=== PATIENT | male | born 1935 | race Caucasian/White ===

== ENCOUNTER 2017-02-11 11:46 | Inpatient (IN) | payer MEDICARE, OTHER ==
[~2017-02-11] VITALS: Ht 175.3 cm; Wt 86.2 kg
[2017-02-11] VITALS (11 sets, daily range): BP systolic 121–147; BP diastolic 76–106
[~2017-02-11 11:46] MED LIST: ASP81CT PO; ATOR40TA70 PO; DIGO250T96 PO; DOXY-182 PO; METO-272 PO; MPR22T TP; NITR0.3T6 SL; OMEG-9 PO; RIVA20TA2 PO
[2017-02-11] MEDS ORDERED: NS IV 1000 ML 1,000 ML IV SCH (12:00)
--- NOTE | 2017-02-11 12:01 | ED EENT ---
History of Present Illness General Chief Complaint: Oral/Throat Problems Stated Complaint: SORE THROAT,COUGH Source: patient Exam Limitations: no limitations History of Present Illness Time seen by provider: 11:59 Initial Comments To ER with reports of sore throat since 02/07. He's also had painful swallowing. Denies fevers or chills. States that he's been essentially unable to swallow due to the pain so has been without adequate food or fluid intake since Friday. He has a lot of mucus in his throat as well that he states is difficult to clear. Denies cough. He was sent here from Dr. Dr. Ramon's office. Reported he was formerly on Eliquis but discontinued this because it gave him nosebleeds Timing/Duration: gradual Severity: moderate Location: throat Associated Symptoms: denies symptoms Allergies and Home Medications Allergies Coded Allergies: No Known Drug Allergies (Verified Allergy, Mild, 03/01/08) Home Medications Aspirin 81 Mg Chew, 81 MG PO DAILY, (Reported) Atorvastatin Calcium 40 Mg Tablet, 40 MG PO DAILY, (Reported) Nitroglycerin 0.3 Mg Tab.subl, 0.4 MG SL PRN, (Reported) [place]-3/Dha/Epa/Fish Oil 1 Each Capsule., 1 EACH PO BID, (Reported) Review of Systems Constitutional: see HPI Eyes: No Symptoms Reported Ears: No Symptoms Reported Nose: no symptoms reported Mouth: no symptoms reported Throat: see HPI, pain Respiratory: no symptoms reported Cardiovascular: no symptoms reported Musculoskeletal: no symptoms reported Skin: no symptoms reported Neurological: No Symptoms Reported Hematologic/Lymphatic: No Symptoms Reported Immunological/Allergic: no symptoms reported Past Oxkgqla-Uzsrvq-Cojoqd Hx Patient Social History Recent Foreign Travel: No Contact w/Someone Who Travel: No Surgeries HX Surgeries: Yes Respiratory Hx Respiratory Disorders: No Cardiovascular Hx Cardiac Disorders: Yes (stent) Cardiac Disorders: High Cholesterol Neurological Hx Neurological Disorders: No Genitourinary Hx Genitourinary Disorders: No Gastrointestinal Hx Gastrointestinal Disorders: No Musculoskeletal Hx Musculoskeletal Disorders: No Endocrine Hx Endocrine Disorders: No Cancer Hx Cancer: No Physical Exam Vital Signs Vital Sign - Last 12Hours 02/11/17 11:50 Temp 98.8 Pulse 131 Resp 18 B/P (MAP) 179/120 Pulse Ox 95 O2 Delivery Room Air General Appearance: WD/WN, no apparent distress Eyes: bilateral eye EOMI, bilateral eye PERRL, bilateral eye normal inspection Ears: bilateral ear TM normal, bilateral ear auricle normal, bilateral ear canal normal Mouth/Throat: normal mouth inspection, other (erythema and swelling of the right peritonsillar region. Erythema of the uvula) Neck: non-tender, full range of motion, No lymphadenopathy (R), No lymphadenopathy (L) Cardiovascular: tachycardia (with a regular appearing rhythm however he does have a history of atrial flutter. He denies chest pain or shortness of breath) Respiratory: no respiratory distress, no accessory muscle use Gastrointestinal: normal bowel sounds, non tender, soft Neurologic/Psychiatric: normal mood/affect, oriented x 3 Skin: normal color, warm/dry Progress/Results/Core Measures Results/Orders Lab Results Laboratory Tests Test 02/11/17 11:55 02/11/17 12:42 Range/Units White Blood Count 14.4 H 4.3-11.0 10^3/uL Red Blood Count 5.59 4.35-5.85 10^6/uL Hemoglobin 16.5 13.3-17.7 G/DL Hematocrit 51 40-54 % Mean Corpuscular Volume 91 80-99 FL Mean Corpuscular Hemoglobin 30 25-34 PG Mean Corpuscular Hemoglobin Concent 32 32-36 G/DL Red Cell Distribution Width 14.8 H 10.0-14.5 % Platelet Count 178 130-400 10^3/uL Mean Platelet Volume 10.8 H 7.4-10.4 FL Neutrophils (%) (Auto) 82 H 42-75 % Lymphocytes (%) (Auto) 10 L 12-44 % Monocytes (%) (Auto) 8 0-12 % Eosinophils (%) (Auto) 0 0-10 % Basophils (%) (Auto) 0 0-10 % Neutrophils # (Auto) 11.7 H 1.8-7.8 X 10^3 Lymphocytes # (Auto) 1.5 1.0-4.0 X 10^3 Monocytes # (Auto) 1.1 H 0.0-1.0 X 10^3 Eosinophils # (Auto) 0.0 0.0-0.3 10^3/uL Basophils # (Auto) 0.0 0.0-0.1 10^3/uL Neutrophils % (Manual) 84 % Lymphocytes % (Manual) 11 % Monocytes % (Manual) 4 % Basophils % (Manual) 1 % Blood Morphology Comment NORMAL Sodium Level 145 135-145 MMOL/L Potassium Level 3.9 3.6-5.0 MMOL/L Chloride Level 108 H 98-107 MMOL/L Carbon Dioxide Level 24 21-32 MMOL/L Anion Gap 13 5-14 MMOL/L Blood Urea Nitrogen 27 H 7-18 MG/DL Creatinine 1.21 0.60-1.30 MG/DL Estimat Glomerular Filtration Rate 58 BUN/Creatinine Ratio 22 Glucose Level 119 H 70-105 MG/DL Calcium Level 9.9 8.5-10.1 MG/DL Total Bilirubin 1.2 H 0.1-1.0 MG/DL Aspartate Amino Transf (AST/SGOT) 49 H 5-34 U/L Alanine Aminotransferase (ALT/SGPT) 62 H 0-55 U/L Alkaline Phosphatase 95 40-136 U/L Troponin I < 0.30 <0.30 NG/ML Total Protein 7.8 6.4-8.2 G/DL Albumin 4.5 3.2-4.5 G/DL Lactic Acid Level 1.62 0.50-2.00 MMOL/L My Orders Orders - SHANTEL MCCLURE APRN Cbc With Automated Diff (02/11/17 11:56) Comprehensive Metabolic Panel (02/11/17 11:56) Troponin I (02/11/17 11:56) Chest 1 View, Ap/Pa Only (02/11/17 11:56) Saline Lock/Iv-Start (02/11/17 11:56) Ns Iv 1000 Ml (Sodium Chloride 0.9%) (02/11/17 12:00) Ekg Tracing (02/11/17 11:56) Continuous Ekg Monitoring (02/11/17 11:56) Ct Neck (Soft Tissue) Wo (02/11/17 12:01) Manual Differential (02/11/17 11:55) Blood Culture (02/11/17 12:06) Lactic Acid Analyzer (02/11/17 12:06) Clindamycin Injection (Cleocin Injection (02/11/17 12:15) Metoprolol Tartrate Injection (Lopressor (02/11/17 12:30) Dexamethasone Pf Injection (Decadron Pf (02/11/17 12:45) Ns (Ivpb) (Sodium Chloride 0.9% Ivpb Bag (02/11/17 12:28) Diltiazem Injection (Cardizem Injection) (02/11/17 13:00) Sodium Chloride (Ad... W/Diltiazem Drip (02/11/17 13:00) Tick Panel With Lyme Eia (02/11/17 13:11) Medications Given in ED Current Medications Medications Dose Ordered Sig/Ivanna Route Start Time Stop Time Status Last Admin Dose Admin Clindamycin Phosphate 900 mg ONCE ONCE IV 02/11/17 12:15 02/11/17 12:16 DC 02/11/17 12:45 900 MG Dexamethasone Sodium Phosphate 10 mg ONCE ONCE IV 02/11/17 12:45 02/11/17 12:46 DC 02/11/17 12:39 10 MG Diltiazem HCl 10 mg ONCE ONCE IVP 02/11/17 13:00 02/11/17 13:05 DC 02/11/17 13:02 10 MG Metoprolol Tartrate 5 mg ONCE ONCE IV 02/11/17 12:30 02/11/17 12:31 DC 02/11/17 12:43 5 MG Sodium Chloride 50 ml @ STK-MED ONCE .ROUTE 02/11/17 12:28 02/11/17 12:33 DC 02/11/17 12:46 100 MLS/HR Vital Signs/I&O Vital Sign - Last 12Hours 02/11/17 02/11/17 11:50 13:05 Temp 98.8 98.8 Pulse 131 121 Resp 18 18 B/P (MAP) 179/120 171/120 Pulse Ox 95 94 O2 Delivery Room Air Diagnostic Imaging Diagonstic Imaging: Xray Plain Films/CT/US/NM/MRI: chest Comments NAME: SUSAN AKINS [facility] REC#: [id number] PT STATUS: REG ER : 1935 PHYSICIAN: SHANTEL MCCLURE APRN ADMIT DATE: 02/11/17/ER Draft Date of Exam:02/11/17 CHEST 1 VIEW, AP/PA ONLY INDICATION: Sore throat, difficulty swallowing. EXAMINATION: Frontal chest obtained at 1207 hrs pm, and compared to 08/09/13. Heart is borderline in size. Lungs are clear. There is no pneumothorax or pleural fluid. IMPRESSION: Borderline heart size with no acute process in the chest. Dictated on workstation # [id number] Dict: 02/11/17 1214 Trans: 02/11/17 1215 [facility] [id number] Interpreted by: LING VARMA MD Electronically signed by: NAME: SUSAN AKINS [facility] REC#: [id number] PT STATUS: REG ER : 1935 PHYSICIAN: SHANTEL MCCLURE APRN ADMIT DATE: 02/11/17/ER Draft Date of Exam:02/11/17 CT NECK (SOFT TISSUE) WO PROCEDURE: CT neck soft tissue without contrast. TECHNIQUE: Multiple contiguous axial images were obtained through the neck without the use of intravenous contrast. INDICATION: Trouble eating. Sore throat. FINDINGS: There is a soft tissue swelling seen at the right peritonsillar region measuring approximately 2.5 x 1.8 CM x 3.2 CM craniocaudally centered at the oropharynx level. There is a slight heterogeneity in its density with no definitive fluid density seen suggestive of a phlegmon. No definitive abscess at this time. The evaluation however is somewhat limited without intravenous contrast. The rest of the airway and the vocal cords appear symmetric. Borderline sized level II right cervical lymph nodes measuring 8 mm in short axis is probably reactive. No significant lymphadenopathy is seen otherwise. The thyroid gland appears unremarkable. The submandibular and the parotid glands appear unremarkable. The visualized portions of the paranasal sinuses are generally clear except for mild mucosal thickening in the inferior aspect of the maxillary sinuses. The lung apices appear clear. The osseous structures demonstrate degenerative changes. IMPRESSION: Soft tissue swelling in the right tonsillar region suggestive of underlying infection. No definite abscess. Dictated on workstation # [id number] Dict: 02/11/17 1231 Trans: 02/11/17 1254 [facility] [id number] Interpreted by: KATELYN LUGO MD Electronically signed by: Departure Communication Time/Spoke to Admitting Phy: 13:[address] Ramon agrees to admit Time/Spoke to Consulting Physi: 13:16 Communication/Consulting Notified Selene Sweet, nurse practitioner with Dr. Smith. They will consult. Also notified Dr. Lynne. We will use Lovenox 80 mg subcutaneous every 12 hours and continue the Cardizem drip at 5 mg per hour as long as heart rate and blood pressure continue to support this. Currently heart rate 58, blood pressure 134/82. Progress Notes CT scan of neck ordered without IV contrast due to renal insufficiency. 1315-blood pressure was 170/120 heart rate 130 regular but was likely atrial flutter. He is given 5 mg of IV Lopressor without improvement in heart rate or blood pressure. He was then given 10 mg Cardizem IV which reduced his heart rate to 60 atrial fibrillation and the pressure 134/85. We will continue the drip at 5 mg per hour per Dr. Coto's wishes as well as Lovenox 80 mg subcutaneous every 12 hours. Impression Impression: Primary Impression: right peritonsillar abscess Additional Impression: Atrial fibrillation with rapid ventricular response Disposition: ADMITTED INPATIENT Condition: Stable Decision to Admit Reason: Admit from ER (General) Decision to Admit/Date: February 11, 2017 Time/Decision to Admit Time: 12:30 Departure-Patient Inst. Referrals: KHUSHBU RAMON DO (PCP/Family) Primary Care Physician SHANTEL MCCLURE APRN February 11, 2017 12:01
[2017-02-11 12:03] LABS: BASOPHILS % (AUTO) 0 % (0-10); EOSINOPHILS % (AUTO) 0 % (0-10); LYMPHOCYTES # (AUTO) 1.5 X 10^3 (1.0-4.0); LYMPHOCYTES % (AUTO) 10 % (12-44); MEAN CORPUSCULAR HEMOGLOBIN 30 PG (25-34); MEAN CORPUSCULAR HGB CONC 32 G/DL (32-36); MEAN CORPUSCULAR VOLUME 91 FL (80-99); MEAN PLATELET VOLUME 10.8 FL (7.4-10.4); MONOCYTES # (AUTO) 1.1 X 10^3 (0.0-1.0); MONOCYTES % (AUTO) 8 % (0-12); NEUTROPHILS # (AUTO) 11.7 X 10^3 (1.8-7.8); NEUTROPHILS % (AUTO) 82 % (42-75); PLATELET COUNT 178 10^3/uL (130-400); RED BLOOD COUNT 5.59 10^6/uL (4.35-5.85); RED CELL DISTRIBUTION WIDTH 14.8 % (10.0-14.5); WHITE BLOOD COUNT 14.4 10^3/uL (4.3-11.0)
[2017-02-11] MEDS ORDERED: CLINDAMYCIN 900 MG/6ML (CLEOCIN) VIAL IV ONE (12:15)
--- NOTE | 2017-02-11 12:16 | Diagnostic Imaging Report ---
INDICATION: Sore throat, difficulty swallowing. EXAMINATION: Frontal chest obtained at 1207 hrs pm, and compared to 08/09/13. Heart is borderline in size. Lungs are clear. There is no pneumothorax or pleural fluid. IMPRESSION: Borderline heart size with no acute process in the chest. Dictated by: Dictated on workstation # [id number]
[2017-02-11 12:22] LABS: ALANINE AMINOTRANSFERASE 62 U/L (0-55); ALBUMIN 4.5 G/DL (3.2-4.5); ANION GAP 13 MMOL/L (5-14); ASPARTATE AMINO TRANSFERASE 49 U/L (5-34); BILIRUBIN,TOTAL 1.2 MG/DL (0.1-1.0); BLOOD UREA NITROGEN 27 MG/DL (7-18); BUN/CREATININE RATIO 22; CALCIUM 9.9 MG/DL (8.5-10.1); CARBON DIOXIDE 24 MMOL/L (21-32); CHLORIDE 108 MMOL/L (98-107); CREATININE SERUM 1.21 MG/DL (0.60-1.30); GFR ESTIMATED 58; GLUCOSE 119 MG/DL (70-105); POTASSIUM 3.9 MMOL/L (3.6-5.0); SODIUM 145 MMOL/L (135-145); TOTAL PROTEIN 7.8 G/DL (6.4-8.2)
[2017-02-11 12:28] LABS: TROPONIN I < 0.30 NG/ML (<0.30)
[2017-02-11] MEDS ORDERED: NS (IVPB) 50 ML ONE (12:28)
[2017-02-11] MEDS ORDERED: meTOprolol 5 MG/5 ML (LOPRESSOR) VIAL IV ONE (12:30)
[2017-02-11 12:31] LABS: BASOPHILS % (MANUAL) 1 %; LYMPHOCYTES % (MANUAL) 11 %; NEUTROPHILS % (MANUAL) 84 %
[2017-02-11] MEDS ORDERED: DEXAMETHASONE PF 10 MG/ML (DECADRON) VIAL IV ONE (12:45)
--- NOTE | 2017-02-11 12:54 | Diagnostic Imaging Report ---
PROCEDURE: CT neck soft tissue without contrast. TECHNIQUE: Multiple contiguous axial images were obtained through the neck without the use of intravenous contrast. INDICATION: Trouble eating. Sore throat. FINDINGS: There is a soft tissue swelling seen at the right peritonsillar region measuring approximately 2.5 x 1.8 CM x 3.2 CM craniocaudally centered at the oropharynx level. There is a slight heterogeneity in its density with no definitive fluid density seen suggestive of a phlegmon. No definitive abscess at this time. The evaluation however is somewhat limited without intravenous contrast. The rest of the airway and the vocal cords appear symmetric. Borderline sized level II right cervical lymph nodes measuring 8 mm in short axis is probably reactive. No significant lymphadenopathy is seen otherwise. The thyroid gland appears unremarkable. The submandibular and the parotid glands appear unremarkable. The visualized portions of the paranasal sinuses are generally clear except for mild mucosal thickening in the inferior aspect of the maxillary sinuses. The lung apices appear clear. The osseous structures demonstrate degenerative changes. IMPRESSION: Soft tissue swelling in the right tonsillar region suggestive of underlying infection. No definite abscess. Dictated by: Dictated on workstation # [id number]
[2017-02-11] MEDS ORDERED: DILTIAZEM DRIP 100 MG in SODIUM CHLORIDE (ADD-VANTAGE) 100 ML IV SCH (13:00)
[2017-02-11] MEDS ORDERED: DILTIAZEM 25 MG/5 ML INJ (CARDIZEM) VIAL IVP ONE (13:00)
[2017-02-11] MEDS ORDERED: ENOXAPARIN 80 MG/0.8 ML (LOVENOX) SYR ONE (13:17)
[2017-02-11] MEDS ORDERED: ENOXAPARIN 80 MG/0.8 ML (LOVENOX) SYR SC ONE (13:30)
--- NOTE | 2017-02-11 14:32 | Consultation-Cardiology ---
HPI-Cardiology Cardiology Consultation: Date of Consultation 02/11/17 Date of Admission 02/11/17 Attending Physician Barney Chu DO Admitting Physician Barney Chu DO Consulting Physician RG OLIVEIRA MD, FACP, FACC, FSCAI, CCDS HPI: Chief Complaint: Reason for consultation: A Fib with RVR 81 yo man with increasing soreness of throat progressing to the point of inability to swallow referred to the ER from Dr Chu office and admitted for treatment of peritonsillar abscess. We have been asked to see him for atrial fib with RVR. He is known to have chronic perm a fib. He has and continues to refuse OAC. Has agreed only to daily aspirin, despite a full understanding that the best protection against thromboembolic stroke would be with an OAC. He denies cp or palp or syncope or ankle swelling or any significant shortness of breath Notes malaise and diminished stamina for several day. Doesn't know if has had fevers Review of Systems-Cardiology Review of Systems Constitutional: As described under HPI Eyes: No vision change Ears/Nose/Throat: As described under HPI Respiratory: As described under HPI Cardiovascular: As described under HPI Gastrointestinal: No constipation, No diarrhea, No nausea, No vomiting Genitourinary: No dysuria, No urine frequency changes Musculoskeletal: No back pain, No joint pain Skin: No rash, No ulcerations Psychiatric/Neurological: No focal weakness, No seizure, No syncope Hematologic: No bleeding abnormalities UOM-Cpxizs-Tdwsvb Hx Patient Social History Alcohol Use: Denies Use Recreational Drug Use: No Smoking Status: Never a Smoker 2nd Hand Smoke Exposure: No Recent Foreign Travel: No Recent Infectious Disease Expo: No Hospitalization with Isolation: Denies Immunizations Up To Date Tetanus Booster (TDap): Less than 5yrs Past Medical History PMH As described under Assessment. Family Medical History Family Medical History: He does not report fam h/o early CAD or SCD Allergies and Home Medications Allergies Coded Allergies: No Known Drug Allergies (Verified Allergy, Mild, 03/01/08) Home Medications Aspirin 81 Mg Chew, 81 MG PO DAILY, (Reported) Atorvastatin Calcium 40 Mg Tablet, 40 MG PO DAILY, (Reported) Nitroglycerin 0.3 Mg Tab.subl, 0.4 MG SL PRN, (Reported) [place]-3/Dha/Epa/Fish Oil 1 Each Capsule., 1 EACH PO BID, (Reported) Physical Exam-Cardiology Physical Exam Vital Signs/I&O Vital Sign - Last 12Hours 02/11/17 02/11/17 02/11/17 02/11/17 11:50 13:05 13:28 13:39 Temp 98.8 98.8 98.8 98.8 Pulse 131 121 121 Resp 18 18 18 B/P (MAP) 179/120 171/120 Pulse Ox 95 94 94 O2 Delivery Room Air Capillary Refill : Less Than 3 Seconds Constitutional: AAO x 3, well-developed, well-nourished HEENT: PERRL, pharyngeal erythema, EOMI, hearing is well preserved, No xanthelasmas are seen Neck: carotid pulses are 2 + bilaterally, with good upstrokes Respiratory: No accessory muscle use, lungs clear to percussion, lungs clear to auscultation Cardiovascular: irregularly irregular, S1 and S2, systolic murmur (faint MAJOR at card base) Gastrointestinal: No tender, soft, No guarding, No rebound, audible bowel sounds Extremities: No clubbing, No cyanosis, No significant edema Neurologic/Psychiatric: oriented x 3, grossly intact, power is 5/5 both on sides Skin: No rash on exposed areas, No ulcerations on exposed areas Data Review Labs Laboratory Tests 02/11/17 11:55: White Blood Count 14.4H, Red Blood Count 5.59, Hemoglobin 16.5, Hematocrit 51, Mean Corpuscular Volume 91, Mean Corpuscular Hemoglobin 30, Mean Corpuscular Hemoglobin Concent 32, Red Cell Distribution Width 14.8H, Platelet Count 178, Mean Platelet Volume 10.8H, Neutrophils (%) (Auto) 82H, Lymphocytes (%) (Auto) 10L, Monocytes (%) (Auto) 8, Eosinophils (%) (Auto) 0, Basophils (%) (Auto) 0, Neutrophils # (Auto) 11.7H, Lymphocytes # (Auto) 1.5, Monocytes # (Auto) 1.1H, Eosinophils # (Auto) 0.0, Basophils # (Auto) 0.0, Neutrophils % (Manual) 84, Lymphocytes % (Manual) 11, Monocytes % (Manual) 4, Basophils % (Manual) 1, Blood Morphology Comment NORMAL, Sodium Level 145, Potassium Level 3.9, Chloride Level 108H, Carbon Dioxide Level 24, Anion Gap 13, Blood Urea Nitrogen 27H, Creatinine 1.21, Estimat Glomerular Filtration Rate 58, BUN/Creatinine Ratio 22, Glucose Level 119H, Calcium Level 9.9, Total Bilirubin 1.2H, Aspartate Amino Transf (AST/SGOT) 49H, Alanine Aminotransferase (ALT/SGPT) 62H, Alkaline Phosphatase 95, Troponin I < 0.30, Total Protein 7.8, Albumin 4.5 02/11/17 12:42: Lactic Acid Level 1.62 02/11/17 13:13: Laboratory Tests 02/11/17 11:55 A/P-Cardiology Assessment/Admission Diagnosis Atrial fibrillation/flutter, chronic permanent Coronary artery disease consisting of moderately severe disease in the terminal portion of the left anterior descending artery (not amenable to intervention because of small caliber), 80% proximal stenosis of a small caliber ramus to which successful balloon angioplasty was carried out in August 2012. He also has moderate proximal left circumflex artery disease and moderately severe disease in a subbranch of the second obtuse marginal (too small for intervention ). He also has moderate diffuse disease of the right coronary including 50% in stent restenosis. Echocardiogram from January 2014 showed mild concentric left ventricular hypertrophy , LVEF 60%, mild mitral and tricuspid regurg, mild aortic valve sclerosis without aortic stenosis, PASP 25 mmHg Hyperlipidemia History of intermittent noncompliance of medications He refuses any OAC. States will take only ASA for stroke prophylaxis, despite a full understanding that ASA does not cover him fully against thromboembolic events from his ch atrial fibrillation Umbilical hernia Suspected ANANT. He has refused eval Discussion and Recomendations * iv dilt, as needed, for vent rate control, until able to take meds by mouth * sc enoxaparin for stroke prophylaxis until able to take meds by mouth * I spoke with him and his and discussed CV issues * Card risk for noncard surgery is estimated to be low to intermediate. It would be reasonable to proceed if surgery considered necessary * Monitor labs RG OLIVEIRA MD FACP [facility] CCDS February 11, 2017 14:32
[2017-02-11] MEDS ORDERED: ACETAMINOPHEN 325 MG TABLET/CAPLET (TYLENOL) PO PRN (15:00)
[2017-02-11] MEDS: DILTIAZEM DRIP 100 MG/NS 100 ML IV SCH ×2 (16:07)
[2017-02-11] MEDS: NS IV 1000 ML 1,000 ML IV SCH (16:30)
[2017-02-11] MEDS ORDERED: OMEG-160 PO (16:36)
[2017-02-11] MEDS ORDERED: ASPI-808 PO (16:36)
[2017-02-11] MEDS ORDERED: METO-272 PO (16:36)
[2017-02-11] MEDS ORDERED: ATOR40TA70 PO (16:36)
--- NOTE | 2017-02-11 17:36 | Progress Note-Standard ---
Standard Progress Note HPI/CC on Admission Right Sided Peritonsillar Abscess Progress Notes/Assess & Plan Date Seen 02/11/17 Assess & Plan/Chief Complaint Patient was admitted to ICU for ASV and RVR and is under the care of Dr. Lynne and Dr. Chu. Also a right sided peritonsillar abscess. A Ct was completed which revelled a soft tissue mass but no definite abscess. Patient was started on Clindamycin IV and was given a one time dose of Decadron. Patient currently states that he "feels much better" and the he can no eat and drink. He is planning on ordering food in the next couple of minutes. Physical Exam. Patient was up- walking around food. Right tonsillar pillar enlarged and saggy. No uvula deviation noted. Assessment- Right tonsillar hypertrophy Plan- Continue IV clindamycin. Start Decadron 10mg Q12 x 2 doses then DC. Will continue to watch area. Above plan was discussed with Dr. Smith. Labs Laboratory Tests 02/11/17 11:55 Short Stay Final Diagnosis tonsillar hypertrophy SARAH NATARAJAN INTAKE RN February 11, 2017 17:35
--- NOTE | 2017-02-11 18:41 | History & Physicial ---
History of Present Illness History of Present Illness Reason for visit/HPI patient came to the office today complaining of a sore throat and unable to swallow. Patient stated not eating for 5 days. This time I saw patient lost 16 pounds today. Patient had hypertension office Patient's heart rate is 130s Patient bit by a tick 2 weeks ago above his umbilical hernia Surgeries heart catheter with stents. Kidney stones Date of Admission February 11, 2017 at 12:45 I consulted on this patient on 02/11/17 18:36 Attending Physician Barney Ramon DO Admitting Physician Barney Ramon DO Consult Allergies and Home Medications Allergies Coded Allergies: No Known Drug Allergies (Verified , 03/01/08) Home Medications Aspirin 325 Mg Tablet, 325 MG PO DAILY, (Reported) Atorvastatin Calcium 40 Mg Tablet, 40 MG PO HS, (Reported) Metoprolol Succinate 50 Mg Tab.er.24h, 50 MG PO HS, (Reported) [place]-3/Dha/Epa/Fish Oil 1 Each Capsule, 1,000 MG PO HS, (Reported) Past Ydfydox-Kewwys-Qqkies Hx Patient Social History Marrital Status: Employed/Student: employed Alcohol Use: Occasionally Uses Recreational Drug Use: No Smoking Status: Never a Smoker 2nd Hand Smoke Exposure: No Physical Abuse Screen: No Sexual Abuse: No Recent Foreign Travel: No Contact w/other who traveled: No Recent Hopitalizations: No Recent Infectious Disease Expo: No Immunizations Up To Date Tetanus Booster (TDap): Less than 5yrs Seasonal Allergies Seasonal Allergies: No Surgeries HX Surgeries: Yes Surgeries: Cardiac Respiratory Hx Respiratory Disorders: No Cardiovascular Hx Cardiovascular Disorders: Yes (stent) Cardiac Disorders: Atrial Fibrillation, High Cholesterol Neurological Hx Neurological Disorders: No Genitourinary Hx Genitourinary Disorders: No Genitourinary Disorders: Kidney Stones Gastrointestinal Hx Gastrointestinal Disorders: No Musculoskeletal Hx Musculoskeletal Disorders: No Endocrine Hx Endocrine Disorders: No Cancer Hx Cancer: No Family Medical History Family Hx: Completed stroke 19 FATHER G8 BROTHER FH: cancer G8 BROTHER G8 SISTER Constitutional: weight loss, other (sore throat) EENTM: hearing loss, throat pain Respiratory: no symptoms reported Gastrointestinal: loss of appetite, other (sore throat unable to swallow) Genitourinary: no symptoms reported Physical Exam Vital Signs Vital Sign - Last 12Hours 02/11/17 11:50 Temp 98.8 Pulse 131 Resp 18 B/P (MAP) 179/120 Pulse Ox 95 O2 Delivery Room Air Capillary Refill : Less Than 3 Seconds General Appearance: No Apparent Distress, WD/WN Eyes: Bilateral Eye Normal Inspection HEENT: Tonsillar Enlargement, Other (abscess tonsils right) Neck: Full Range of Motion, Normal Inspection Respiratory: Chest Non Tender, Lungs Clear, Normal Breath Sounds, No Accessory Muscle Use, No Respiratory Distress Cardiovascular: Irregularly Irregular, Other (A. fib/flutter RVR) Gastrointestinal: Non Tender, Soft, Other (billfold hernia) Assessment/Plan Assessment and Plan Davion tonsillar abscess. A. fib/flutter. CAD. Hyperlipidemia. Umbilical hernia. Tick bite 2 weeks ago Problems: Clinical Quality Measures DVT/VTE Risk/Contraindication: Risk Factor Score Per Nursin RFS Level Per Nursing on Admit: 2=Moderate BARNEY RAMON DO February 11, 2017 18:41
[2017-02-11] MEDS ORDERED: CATHETER FLUSH 10 ML SYR IV PRN (19:15)
[2017-02-11] MEDS: DOXYCYCLINE 100 MG (VIBRAMYCIN) TABLET PO SCH (19:49)
[2017-02-11] MEDS ORDERED: meTOprolol 5 MG/5 ML (LOPRESSOR) VIAL ONE (21:42)
[2017-02-11] MEDS: CLINDAMYCIN 900 MG/NS 50 ML IVPB IV SCH ×2 (21:52)
[2017-02-12] VITALS (12 sets, daily range): BP systolic 128–155; BP diastolic 85–111
[2017-02-12] MEDS ORDERED: DEXAMETHASONE 4 MG/ML SDV (DECADRON) IV SCH (00:30)
[2017-02-12] MEDS ORDERED: ENOXAPARIN 80 MG/0.8 ML (LOVENOX) SYR SC SCH (01:00)
[2017-02-12 04:19] LABS: BASOPHILS % (AUTO) 0 % (0-10); EOSINOPHILS % (AUTO) 0 % (0-10); LYMPHOCYTES # (AUTO) 1.1 X 10^3 (1.0-4.0); LYMPHOCYTES % (AUTO) 10 % (12-44); MEAN CORPUSCULAR HEMOGLOBIN 30 PG (25-34); MEAN CORPUSCULAR HGB CONC 33 G/DL (32-36); MEAN CORPUSCULAR VOLUME 91 FL (80-99); MEAN PLATELET VOLUME 11.2 FL (7.4-10.4); MONOCYTES # (AUTO) 0.4 X 10^3 (0.0-1.0); MONOCYTES % (AUTO) 3 % (0-12); NEUTROPHILS # (AUTO) 9.6 X 10^3 (1.8-7.8); NEUTROPHILS % (AUTO) 87 % (42-75); PLATELET COUNT 153 10^3/uL (130-400); RED BLOOD COUNT 5.06 10^6/uL (4.35-5.85); RED CELL DISTRIBUTION WIDTH 14.6 % (10.0-14.5); WHITE BLOOD COUNT 11.1 10^3/uL (4.3-11.0)
[2017-02-12 04:45] LABS: ALANINE AMINOTRANSFERASE 51 U/L (0-55); ALBUMIN 3.6 G/DL (3.2-4.5); ANION GAP 11 MMOL/L (5-14); ASPARTATE AMINO TRANSFERASE 40 U/L (5-34); BILIRUBIN,TOTAL 0.6 MG/DL (0.1-1.0); BLOOD UREA NITROGEN 25 MG/DL (7-18); BUN/CREATININE RATIO 28; CARBON DIOXIDE 21 MMOL/L (21-32); CHLORIDE 110 MMOL/L (98-107); CREATININE SERUM 0.89 MG/DL (0.60-1.30); GFR ESTIMATED > 60; GLUCOSE 132 MG/DL (70-105); SODIUM 142 MMOL/L (135-145); TOTAL PROTEIN 6.3 G/DL (6.4-8.2)
[2017-02-12 05:15] LABS: MAGNESIUM 2.1 MG/DL (1.8-2.4)
[2017-02-12] MEDS: CLINDAMYCIN 900 MG/NS 50 ML IVPB IV SCH ×2 (05:20)
[2017-02-12] MEDS: NS IV 1000 ML 1,000 ML IV SCH ×2 (05:21→11:20)
[2017-02-12] MEDS ORDERED: POTASSIUM CL 10MEQ/50ML IVPB 50 ML IV SCH (06:00)
[2017-02-12] MEDS ORDERED: MAGNESIUM 1 GM/100 ML IVPB 100 ML IV SCH (06:00)
[2017-02-12] MEDS ORDERED: KCL 20 MEQ TAB (K-DUR) PO SCH (06:00)
--- NOTE | 2017-02-12 06:24 | Progress Note-Standard ---
Standard Progress Note Progress Notes/Assess & Plan Progress/Assessment & Plan ENT-Luis patietn asymptomatic this am much less swollen/ no tirsmus-voice normal no airway problems nothing to drain at this time would send home on 10 days of cleocin with RTc in 2 weeks prescription left in chart for the cleocin please call if we need to do anything else while hospitalized-thanks GINETTE TOUSSAINT MD February 12, 2017 6:24 am
[2017-02-12] MEDS: DOXYCYCLINE 100 MG (VIBRAMYCIN) TABLET PO SCH (06:52)
--- NOTE | 2017-02-12 07:39 | Progress Note (SOAP) ---
Subjective Subjective/Events-last exam sore throat better. Inability to eat resolved. Apical rate not under control yet. Patient still has hypertension. Liver tests improving . Patient feeling better. Patient eating Objective Exam Vital Signs Date Time Temp Pulse Resp B/P (MAP) Pulse Ox O2 Delivery O2 Flow Rate FiO2 02/12/17 06:03 115 17 155/90 95 02/12/17 05:00 98 16 148/93 99 02/12/17 04:00 70 16 153/103 97 02/12/17 03:00 64 16 143/99 97 02/12/17 02:00 64 02/12/17 02:00 68 22 139/85 97 02/12/17 01:00 59 15 136/85 96 02/12/17 00:55 95 02/12/17 00:45 125 02/12/17 00:00 97.5 02/12/17 00:00 95 15 128/98 96 02/11/17 23:00 87 17 121/76 97 02/11/17 23:00 75 02/11/17 22:30 90 02/11/17 22:00 71 10 129/97 97 02/11/17 22:00 82 02/11/17 21:50 125 02/11/17 21:00 126 20 136/106 97 02/11/17 20:00 97.3 14 95 02/11/17 20:00 82 26 144/104 99 02/11/17 19:45 76 02/11/17 19:22 124 02/11/17 19:00 124 18 130/95 97 02/11/17 19:00 97.3 02/11/17 18:00 124 13 144/104 99 02/11/17 17:00 110 20 136/98 97 02/11/17 16:00 82 14 139/86 95 02/11/17 15:50 97.8 02/11/17 15:00 79 21 134/85 97 02/11/17 14:45 65 23 147/76 96 02/11/17 13:45 98.0 60 17 137/82 97 02/11/17 13:39 98.8 121 18 94 02/11/17 13:28 98.8 02/11/17 13:05 98.8 121 18 171/120 94 02/11/17 11:50 98.8 131 18 179/120 95 Room Air I & O 02/12/17 07:00 Intake Total 4052 ml Output Total 600 ml Balance 3452 ml Capillary Refill : Less Than 3 Seconds General Appearance: No Apparent Distress, WD/WN HEENT: Other (nose and ears okay throat better) Respiratory: Chest Non Tender, Lungs Clear, Normal Breath Sounds, No Accessory Muscle Use, No Respiratory Distress Cardiovascular: Irregularly Irregular Gastrointestinal: non tender, soft Results Lab Laboratory Tests 02/11/17 11:55 02/12/17 04:07 Laboratory Tests 02/11/17 11:55: White Blood Count 14.4H, Red Blood Count 5.59, Hemoglobin 16.5, Hematocrit 51, Mean Corpuscular Volume 91, Mean Corpuscular Hemoglobin 30, Mean Corpuscular Hemoglobin Concent 32, Red Cell Distribution Width 14.8H, Platelet Count 178, Mean Platelet Volume 10.8H, Neutrophils (%) (Auto) 82H, Lymphocytes (%) (Auto) 10L, Monocytes (%) (Auto) 8, Eosinophils (%) (Auto) 0, Basophils (%) (Auto) 0, Neutrophils # (Auto) 11.7H, Lymphocytes # (Auto) 1.5, Monocytes # (Auto) 1.1H, Eosinophils # (Auto) 0.0, Basophils # (Auto) 0.0, Neutrophils % (Manual) 84, Lymphocytes % (Manual) 11, Monocytes % (Manual) 4, Basophils % (Manual) 1, Blood Morphology Comment NORMAL, Sodium Level 145, Potassium Level 3.9, Chloride Level 108H, Carbon Dioxide Level 24, Anion Gap 13, Blood Urea Nitrogen 27H, Creatinine 1.21, Estimat Glomerular Filtration Rate 58, BUN/Creatinine Ratio 22, Glucose Level 119H, Calcium Level 9.9, Total Bilirubin 1.2H, Aspartate Amino Transf (AST/SGOT) 49H, Alanine Aminotransferase (ALT/SGPT) 62H, Alkaline Phosphatase 95, Troponin I < 0.30, Total Protein 7.8, Albumin 4.5 02/11/17 12:42: Lactic Acid Level 1.62 02/11/17 13:13: 02/12/17 04:07: White Blood Count 11.1H, Red Blood Count 5.06, Hemoglobin 15.1, Hematocrit 46, Mean Corpuscular Volume 91, Mean Corpuscular Hemoglobin 30, Mean Corpuscular Hemoglobin Concent 33, Red Cell Distribution Width 14.6H, Platelet Count 153, Mean Platelet Volume 11.2H, Neutrophils (%) (Auto) 87H, Lymphocytes (%) (Auto) 10L, Monocytes (%) (Auto) 3, Eosinophils (%) (Auto) 0, Basophils (%) (Auto) 0, Neutrophils # (Auto) 9.6H, Lymphocytes # (Auto) 1.1, Monocytes # (Auto) 0.4, Eosinophils # (Auto) 0.0, Basophils # (Auto) 0.0, Sodium Level 142, Potassium Level 4.0, Chloride Level 110H, Carbon Dioxide Level 21, Anion Gap 11, Blood Urea Nitrogen 25H, Creatinine 0.89, Estimat Glomerular Filtration Rate > 60, BUN /Creatinine Ratio 28, Glucose Level 132H, Calcium Level 9.0, Total Bilirubin 0.6 , Aspartate Amino Transf (AST/SGOT) 40H, Alanine Aminotransferase (ALT/SGPT) 51 , Alkaline Phosphatase 74, Total Protein 6.3L, Albumin 3.6, Phosphorus Level 2.0L, Magnesium Level 2.1 Assessment/Plan Assessment/Plan Assess & Plan/Chief Complaint throat better. Sore throat better. Patient needing. Liver tests coming down. Atrial fibrillation. Hypertension. Atrial flutter/fibrillation Clinical Quality Measures DVT/VTE Risk/Contraindication: Risk Factor Score Per Nursin RFS Level Per Nursing on Admit: 2=Moderate KHUSHBU RAMON DO February 12, 2017 07:39
--- NOTE | 2017-02-12 08:32 | Diagnostic Imaging Report ---
Portable upright radiograph of the chest. INDICATION: Peritonsillar abscess. FINDINGS: There is mild cardiac enlargement with no active congestion or edema. Lungs are clear. No effusion or pneumothorax. Mediastinum and rivka appear unremarkable. IMPRESSION: Cardiomegaly. Dictated by: Dictated on workstation # [id number]
--- NOTE | 2017-02-12 08:54 | Progress Note-Cardiology ---
Cardiology SO Progress Note Objective: I&O/Vital Signs Vital Sign - Last 12Hours 02/11/17 02/11/17 02/11/17 02/11/17 21:00 21:50 22:00 22:00 Pulse 126 125 82 71 Resp 20 10 B/P (MAP) 136/106 129/97 Pulse Ox 97 97 02/11/17 02/11/17 02/11/17 02/12/17 22:30 23:00 23:00 00:00 Pulse 90 75 87 95 Resp 17 15 B/P (MAP) 121/76 128/98 Pulse Ox 97 96 02/12/17 02/12/17 02/12/17 02/12/17 00:00 00:45 00:55 01:00 Temp 97.5 Pulse 125 95 59 Resp 15 B/P (MAP) 136/85 Pulse Ox 96 02/12/17 02/12/17 02/12/17 02/12/17 02:00 02:00 03:00 04:00 Pulse 68 64 64 70 Resp 22 16 16 B/P (MAP) 139/85 143/99 153/103 Pulse Ox 97 97 97 02/12/17 02/12/17 02/12/17 02/12/17 05:00 06:03 07:00 07:00 Temp 97.9 Pulse 98 115 120 Resp 16 17 B/P (MAP) 148/93 155/90 Pulse Ox 99 95 Intake and Output 02/12/17 00:00 Intake Total 2116 ml Output Total 225 ml Balance 1891 ml Weight (Pounds): 190 Weight (Ounces): 0.0 Weight (Calculated Kilograms): 86.199050 Constitutional: AAO x 3, well-developed, well-nourished Respiratory: No accessory muscle use, lungs clear to percussion, lungs clear to auscultation Cardiovascular: irregularly irregular, S1 and S2, systolic murmur (faint MAJOR at card base) Gastrointestional: No tender, soft, No guarding, No rebound, audible bowel sounds Extremities: No clubbing, No cyanosis, No significant edema Neurologic/Psychiatric: oriented x 3, grossly intact, power is 5/5 both on sides Skin: No rash on exposed areas, No ulcerations on exposed areas Results/Procedures: Labs Laboratory Tests 02/11/17 11:55: White Blood Count 14.4H, Red Blood Count 5.59, Hemoglobin 16.5, Hematocrit 51, Mean Corpuscular Volume 91, Mean Corpuscular Hemoglobin 30, Mean Corpuscular Hemoglobin Concent 32, Red Cell Distribution Width 14.8H, Platelet Count 178, Mean Platelet Volume 10.8H, Neutrophils (%) (Auto) 82H, Lymphocytes (%) (Auto) 10L, Monocytes (%) (Auto) 8, Eosinophils (%) (Auto) 0, Basophils (%) (Auto) 0, Neutrophils # (Auto) 11.7H, Lymphocytes # (Auto) 1.5, Monocytes # (Auto) 1.1H, Eosinophils # (Auto) 0.0, Basophils # (Auto) 0.0, Neutrophils % (Manual) 84, Lymphocytes % (Manual) 11, Monocytes % (Manual) 4, Basophils % (Manual) 1, Blood Morphology Comment NORMAL, Sodium Level 145, Potassium Level 3.9, Chloride Level 108H, Carbon Dioxide Level 24, Anion Gap 13, Blood Urea Nitrogen 27H, Creatinine 1.21, Estimat Glomerular Filtration Rate 58, BUN/Creatinine Ratio 22, Glucose Level 119H, Calcium Level 9.9, Total Bilirubin 1.2H, Aspartate Amino Transf (AST/SGOT) 49H, Alanine Aminotransferase (ALT/SGPT) 62H, Alkaline Phosphatase 95, Troponin I < 0.30, Total Protein 7.8, Albumin 4.5 02/11/17 12:42: Lactic Acid Level 1.62 02/11/17 13:13: 02/12/17 04:07: White Blood Count 11.1H, Red Blood Count 5.06, Hemoglobin 15.1, Hematocrit 46, Mean Corpuscular Volume 91, Mean Corpuscular Hemoglobin 30, Mean Corpuscular Hemoglobin Concent 33, Red Cell Distribution Width 14.6H, Platelet Count 153, Mean Platelet Volume 11.2H, Neutrophils (%) (Auto) 87H, Lymphocytes (%) (Auto) 10L, Monocytes (%) (Auto) 3, Eosinophils (%) (Auto) 0, Basophils (%) (Auto) 0, Neutrophils # (Auto) 9.6H, Lymphocytes # (Auto) 1.1, Monocytes # (Auto) 0.4, Eosinophils # (Auto) 0.0, Basophils # (Auto) 0.0, Sodium Level 142, Potassium Level 4.0, Chloride Level 110H, Carbon Dioxide Level 21, Anion Gap 11, Blood Urea Nitrogen 25H, Creatinine 0.89, Estimat Glomerular Filtration Rate > 60, BUN /Creatinine Ratio 28, Glucose Level 132H, Calcium Level 9.0, Total Bilirubin 0.6 , Aspartate Amino Transf (AST/SGOT) 40H, Alanine Aminotransferase (ALT/SGPT) 51 , Alkaline Phosphatase 74, Total Protein 6.3L, Albumin 3.6, Phosphorus Level 2.0L, Magnesium Level 2.1 A/P: Assessment: Atrial fibrillation/flutter, chronic permanent - rate not well controlled Coronary artery disease consisting of moderately severe disease in the terminal portion of the left anterior descending artery (not amenable to intervention because of small caliber), 80% proximal stenosis of a small caliber ramus to which successful balloon angioplasty was carried out in August 2012. He also has moderate proximal left circumflex artery disease and moderately severe disease in a subbranch of the second obtuse marginal (too small for intervention ). He also has moderate diffuse disease of the right coronary including 50% in stent restenosis. Echocardiogram from January 2014 showed mild concentric left ventricular hypertrophy , LVEF 60%, mild mitral and tricuspid regurg, mild aortic valve sclerosis without aortic stenosis, PASP 25 mmHg Hyperlipidemia History of intermittent noncompliance of medications He refuses any OAC. States will take only ASA for stroke prophylaxis, despite a full understanding that ASA does not cover him fully against thromboembolic events from his ch atrial fibrillation Umbilical hernia Suspected ANANT. He has refused eval Plan: * iv dilt, as needed, for vent rate control, until able to take meds by mouth * sc enoxaparin for stroke prophylaxis until able to take meds by mouth * I spoke with him and his and discussed CV issues * Card risk for noncard surgery is estimated to be low to intermediate. It would be reasonable to proceed if surgery considered necessary * Monitor labs SO MARCIAL February 12, 2017 08:54
[2017-02-12] MEDS ORDERED: APIXABAN 5 MG (ELIQUIS) TABLET PO NR (09:15)
[2017-02-12] MEDS ORDERED: meTOprolol SUCCINATE 100 MG (TOPROL XL) TAB PO NR (09:16)
--- NOTE | 2017-02-12 09:18 | Progress Note-Cardiology ---
Cardiology SOAP Progress Note Subjective: Throat feels better No palp or cp or syncope or shortness of breath Wishes to go home Objective: I&O/Vital Signs Vital Sign - Last 12Hours 02/11/17 02/11/17 02/11/17 02/11/17 21:50 22:00 22:00 22:30 Pulse 125 82 71 90 Resp 10 B/P (MAP) 129/97 Pulse Ox 97 02/11/17 02/11/17 02/12/17 02/12/17 23:00 23:00 00:00 00:00 Temp 97.5 Pulse 75 87 95 Resp 17 15 B/P (MAP) 121/76 128/98 Pulse Ox 97 96 02/12/17 02/12/17 02/12/17 02/12/17 00:45 00:55 01:00 02:00 Pulse 125 95 59 68 Resp 15 22 B/P (MAP) 136/85 139/85 Pulse Ox 96 97 02/12/17 02/12/17 02/12/17 02/12/17 02:00 03:00 04:00 05:00 Pulse 64 64 70 98 Resp 16 16 16 B/P (MAP) 143/99 153/103 148/93 Pulse Ox 97 97 99 02/12/17 02/12/17 02/12/17 06:03 07:00 07:00 Temp 97.9 Pulse 115 120 Resp 17 B/P (MAP) 155/90 Pulse Ox 95 Intake and Output 02/12/17 00:00 Intake Total 2116 ml Output Total 225 ml Balance 1891 ml Weight (Pounds): 190 Weight (Ounces): 0.0 Weight (Calculated Kilograms): 86.635987 Constitutional: AAO x 3, well-developed, well-nourished Respiratory: No accessory muscle use, lungs clear to percussion, lungs clear to auscultation Cardiovascular: irregularly irregular, S1 and S2, systolic murmur (faint MAJOR at card base) Gastrointestional: No tender, soft, No guarding, No rebound, audible bowel sounds Extremities: No clubbing, No cyanosis, No significant edema Neurologic/Psychiatric: oriented x 3, grossly intact, power is 5/5 both on sides Skin: No rash on exposed areas, No ulcerations on exposed areas Results/Procedures: Labs Laboratory Tests 02/11/17 11:55: White Blood Count 14.4H, Red Blood Count 5.59, Hemoglobin 16.5, Hematocrit 51, Mean Corpuscular Volume 91, Mean Corpuscular Hemoglobin 30, Mean Corpuscular Hemoglobin Concent 32, Red Cell Distribution Width 14.8H, Platelet Count 178, Mean Platelet Volume 10.8H, Neutrophils (%) (Auto) 82H, Lymphocytes (%) (Auto) 10L, Monocytes (%) (Auto) 8, Eosinophils (%) (Auto) 0, Basophils (%) (Auto) 0, Neutrophils # (Auto) 11.7H, Lymphocytes # (Auto) 1.5, Monocytes # (Auto) 1.1H, Eosinophils # (Auto) 0.0, Basophils # (Auto) 0.0, Neutrophils % (Manual) 84, Lymphocytes % (Manual) 11, Monocytes % (Manual) 4, Basophils % (Manual) 1, Blood Morphology Comment NORMAL, Sodium Level 145, Potassium Level 3.9, Chloride Level 108H, Carbon Dioxide Level 24, Anion Gap 13, Blood Urea Nitrogen 27H, Creatinine 1.21, Estimat Glomerular Filtration Rate 58, BUN/Creatinine Ratio 22, Glucose Level 119H, Calcium Level 9.9, Total Bilirubin 1.2H, Aspartate Amino Transf (AST/SGOT) 49H, Alanine Aminotransferase (ALT/SGPT) 62H, Alkaline Phosphatase 95, Troponin I < 0.30, Total Protein 7.8, Albumin 4.5 02/11/17 12:42: Lactic Acid Level 1.62 02/11/17 13:13: 02/12/17 04:07: White Blood Count 11.1H, Red Blood Count 5.06, Hemoglobin 15.1, Hematocrit 46, Mean Corpuscular Volume 91, Mean Corpuscular Hemoglobin 30, Mean Corpuscular Hemoglobin Concent 33, Red Cell Distribution Width 14.6H, Platelet Count 153, Mean Platelet Volume 11.2H, Neutrophils (%) (Auto) 87H, Lymphocytes (%) (Auto) 10L, Monocytes (%) (Auto) 3, Eosinophils (%) (Auto) 0, Basophils (%) (Auto) 0, Neutrophils # (Auto) 9.6H, Lymphocytes # (Auto) 1.1, Monocytes # (Auto) 0.4, Eosinophils # (Auto) 0.0, Basophils # (Auto) 0.0, Sodium Level 142, Potassium Level 4.0, Chloride Level 110H, Carbon Dioxide Level 21, Anion Gap 11, Blood Urea Nitrogen 25H, Creatinine 0.89, Estimat Glomerular Filtration Rate > 60, BUN /Creatinine Ratio 28, Glucose Level 132H, Calcium Level 9.0, Total Bilirubin 0.6 , Aspartate Amino Transf (AST/SGOT) 40H, Alanine Aminotransferase (ALT/SGPT) 51 , Alkaline Phosphatase 74, Total Protein 6.3L, Albumin 3.6, Phosphorus Level 2.0L, Magnesium Level 2.1 Laboratory Tests 02/11/17 11:55 02/12/17 04:07 A/P: Assessment: Tonsillar abscess Atrial fibrillation/flutter, chronic permanent - rate not well controlled Coronary artery disease consisting of moderately severe disease in the terminal portion of the left anterior descending artery (not amenable to intervention because of small caliber), 80% proximal stenosis of a small caliber ramus to which successful balloon angioplasty was carried out in August 2012. He also has moderate proximal left circumflex artery disease and moderately severe disease in a subbranch of the second obtuse marginal (too small for intervention ). He also has moderate diffuse disease of the right coronary including 50% in stent restenosis. Echocardiogram from January 2014 showed mild concentric left ventricular hypertrophy , LVEF 60%, mild mitral and tricuspid regurg, mild aortic valve sclerosis without aortic stenosis, PASP 25 mmHg Hyperlipidemia History of intermittent noncompliance of medications He has previouly refuse any OAC. Today, he states he will give it a try Umbilical hernia Suspected ANANT. He has refused eval Plan: * Is able to take oral meds. Resume Toprol XL and increase dose to control currently elevated bp and vent response to a fib * We again had a long discussion regarding a fib and its treatment options. He desires conservative therapy only. He has refused oral anticoag in the past, but does agree to it today. We will start Eliquis and stop aspirin for now ( given his concerns regarding bleeding) * Close outpatient f/u is advised for now RG OLIVEIRA MD FACP [facility] February 12, 2017 09:18
[2017-02-12] MEDS: DILTIAZEM DRIP 100 MG/NS 100 ML IV SCH ×2 (11:19)
[2017-02-12] MEDS ORDERED: METO100T6 PO (11:29)
[2017-02-12] MEDS ORDERED: APIX5TAB PO (11:29)
[2017-02-12] MEDS ORDERED: CLIN300C3 PO (11:37)
[2017-02-12 13:16] LABS: LYME AB G M < 0.01 Index (0.00-0.89)
[2017-02-12 14:20] LABS: EHRLICHIA CHAFFEENSIS G ABY <1:16 (<1:16)
[2017-02-12] MEDS ORDERED: APIXABAN 5 MG (ELIQUIS) TABLET PO SCH (21:00)
[2017-02-13 07:32] LABS: IGG ROCKY MOUNTAIN SPOTTED FEV <1:16 (<1:16); IGM ROCKY MOUNTAIN SPOTTED FEV <1:10 (<1:10); LYME AB INTERP Negative (Negative)
[2017-02-13] MEDS ORDERED: meTOprolol SUCCINATE 100 MG (TOPROL XL) TAB PO SCH (09:00)
[2017-02-13 15:18] LABS: TULAREMIA ANTIBODY <1:20
--- NOTE | 2017-02-14 07:33 | Discharge Summary ---
Diagnosis/Chief Complaint Date of Admission February 12, 2017 at 08:06 Date of Discharge February 12, 2017 at 11:50 Admission Diagnosis Admission Diagnosis [place] tonsillar abscess. A. fib/flutter. CAD. Hyperlipidemia. Umbilical hernia. Tick bite 2 weeks ago Discharge Diagnosis sore throat. Inability to eat and drink. Right tonsilla infection. Atrial fibrillation/flutter chronic permanent. Coronary artery disease. Hyperlipidemia. History of noncompliance. Umbilical hernia. Hypertension. Peritonsillar abscess. Reason Hospital Visit patient came to the office today complaining of a sore throat and unable to swallow. Patient stated not eating for 5 days. This time I saw patient lost 16 pounds today. Patient had hypertension office Patient's heart rate is 130s Patient bit by a tick 2 weeks ago above his umbilical hernia Surgeries heart catheter with stents. Kidney stones Discharge Summary Consultations cardiology. ENT Discharge Physical Examination Allergies: Coded Allergies: No Known Drug Allergies (Verified , 03/01/08) Vitals & I&Os Vital Signs Date Time Temp Pulse Resp B/P (MAP) Pulse Ox O2 Delivery O2 Flow Rate FiO2 02/12/17 11:50 02/12/17 11:00 97 23 96 02/12/17 07:00 97.9 02/11/17 11:50 Room Air Hospital Course patient in hospital did better. Patient was able to eat. Heart rate under control. Labs (last 24 hrs) Laboratory Tests 02/11/17 11:55: White Blood Count 14.4H, Red Blood Count 5.59, Hemoglobin 16.5, Hematocrit 51, Mean Corpuscular Volume 91, Mean Corpuscular Hemoglobin 30, Mean Corpuscular Hemoglobin Concent 32, Red Cell Distribution Width 14.8H, Platelet Count 178, Mean Platelet Volume 10.8H, Neutrophils (%) (Auto) 82H, Lymphocytes (%) (Auto) 10L, Monocytes (%) (Auto) 8, Eosinophils (%) (Auto) 0, Basophils (%) (Auto) 0, Neutrophils # (Auto) 11.7H, Lymphocytes # (Auto) 1.5, Monocytes # (Auto) 1.1H, Eosinophils # (Auto) 0.0, Basophils # (Auto) 0.0, Neutrophils % (Manual) 84, Lymphocytes % (Manual) 11, Monocytes % (Manual) 4, Basophils % (Manual) 1, Blood Morphology Comment NORMAL, Sodium Level 145, Potassium Level 3.9, Chloride Level 108H, Carbon Dioxide Level 24, Anion Gap 13, Blood Urea Nitrogen 27H, Creatinine 1.21, Estimat Glomerular Filtration Rate 58, BUN/Creatinine Ratio 22, Glucose Level 119H, Calcium Level 9.9, Total Bilirubin 1.2H, Aspartate Amino Transf (AST/SGOT) 49H, Alanine Aminotransferase (ALT/SGPT) 62H, Alkaline Phosphatase 95, Troponin I < 0.30, Total Protein 7.8, Albumin 4.5 02/11/17 12:42: Lactic Acid Level 1.62 02/11/17 13:13: Lyme Disease Screen IgG & IgM Ab < 0.01, Lyme Antibody Interpretation Negative, Ehrlichia chaffeensis IgG Antibody <1:16, Ehrlichia chaffeensis IgM Antibody <1: 10, Spotted Fever Group IgG Antibody <1:16, Spotted Fever Group IgM Antibody <1: 10, [place] Antibody <1:20 02/12/17 04:07: White Blood Count 11.1H, Red Blood Count 5.06, Hemoglobin 15.1, Hematocrit 46, Mean Corpuscular Volume 91, Mean Corpuscular Hemoglobin 30, Mean Corpuscular Hemoglobin Concent 33, Red Cell Distribution Width 14.6H, Platelet Count 153, Mean Platelet Volume 11.2H, Neutrophils (%) (Auto) 87H, Lymphocytes (%) (Auto) 10L, Monocytes (%) (Auto) 3, Eosinophils (%) (Auto) 0, Basophils (%) (Auto) 0, Neutrophils # (Auto) 9.6H, Lymphocytes # (Auto) 1.1, Monocytes # (Auto) 0.4, Eosinophils # (Auto) 0.0, Basophils # (Auto) 0.0, Sodium Level 142, Potassium Level 4.0, Chloride Level 110H, Carbon Dioxide Level 21, Anion Gap 11, Blood Urea Nitrogen 25H, Creatinine 0.89, Estimat Glomerular Filtration Rate > 60, BUN /Creatinine Ratio 28, Glucose Level 132H, Calcium Level 9.0, Total Bilirubin 0.6 , Aspartate Amino Transf (AST/SGOT) 40H, Alanine Aminotransferase (ALT/SGPT) 51 , Alkaline Phosphatase 74, Total Protein 6.3L, Albumin 3.6, Phosphorus Level 2.0L, Magnesium Level 2.1 Microbiology 02/11/17 Blood Culture - Preliminary, Resulted No growth Laboratory Tests 02/11/17 11:55 02/12/17 04:07 Pending Labs Microbiology Date/Time Source Procedure Growth Status 02/11/17 12:42 Peripheral Rt Ac Blood Culture - Preliminary No growth Resulted 02/11/17 12:15 Peripheral :Lab Indicates After Collectio Blood Culture - Preliminary No growth Resulted Laboratory Tests 02/11/17 11:55: White Blood Count 14.4, Red Blood Count 5.59, Hemoglobin 16.5, Hematocrit 51, Mean Corpuscular Volume 91, Mean Corpuscular Hemoglobin 30, Mean Corpuscular Hemoglobin Concent 32, Red Cell Distribution Width 14.8, Platelet Count 178, Mean Platelet Volume 10.8, Neutrophils (%) (Auto) 82, Lymphocytes (%) (Auto) 10 , Monocytes (%) (Auto) 8, Eosinophils (%) (Auto) 0, Basophils (%) (Auto) 0, Neutrophils # (Auto) 11.7, Lymphocytes # (Auto) 1.5, Monocytes # (Auto) 1.1, Eosinophils # (Auto) 0.0, Basophils # (Auto) 0.0, Neutrophils % (Manual) 84, Lymphocytes % (Manual) 11, Monocytes % (Manual) 4, Basophils % (Manual) 1, Blood Morphology Comment NORMAL, Sodium Level 145, Potassium Level 3.9, Chloride Level 108, Carbon Dioxide Level 24, Anion Gap 13, Blood Urea Nitrogen 27, Creatinine 1.21, Estimat Glomerular Filtration Rate 58, BUN/Creatinine Ratio 22, Glucose Level 119, Calcium Level 9.9, Total Bilirubin 1.2, Aspartate Amino Transf (AST/SGOT) 49, Alanine Aminotransferase (ALT/SGPT) 62, Alkaline Phosphatase 95, Troponin I < 0.30, Total Protein 7.8, Albumin 4.5 02/11/17 12:42: Lactic Acid Level 1.62 02/11/17 13:13: Lyme Disease Screen IgG & IgM Ab < 0.01, Lyme Antibody Interpretation Negative, Ehrlichia chaffeensis IgG Antibody <1:16, Ehrlichia chaffeensis IgM Antibody <1: 10, Spotted Fever Group IgG Antibody <1:16, Spotted Fever Group IgM Antibody <1: 10, [place] Antibody <1:20 02/12/17 04:07: White Blood Count 11.1, Red Blood Count 5.06, Hemoglobin 15.1, Hematocrit 46, Mean Corpuscular Volume 91, Mean Corpuscular Hemoglobin 30, Mean Corpuscular Hemoglobin Concent 33, Red Cell Distribution Width 14.6, Platelet Count 153, Mean Platelet Volume 11.2, Neutrophils (%) (Auto) 87, Lymphocytes (%) (Auto) 10 , Monocytes (%) (Auto) 3, Eosinophils (%) (Auto) 0, Basophils (%) (Auto) 0, Neutrophils # (Auto) 9.6, Lymphocytes # (Auto) 1.1, Monocytes # (Auto) 0.4, Eosinophils # (Auto) 0.0, Basophils # (Auto) 0.0, Sodium Level 142, Potassium Level 4.0, Chloride Level 110, Carbon Dioxide Level 21, Anion Gap 11, Blood Urea Nitrogen 25, Creatinine 0.89, Estimat Glomerular Filtration Rate > 60, BUN/ Creatinine Ratio 28, Glucose Level 132, Calcium Level 9.0, Total Bilirubin 0.6, Aspartate Amino Transf (AST/SGOT) 40, Alanine Aminotransferase (ALT/SGPT) 51, Alkaline Phosphatase 74, Total Protein 6.3, Albumin 3.6, Phosphorus Level 2.0, Magnesium Level 2.1 Radiology Reviewed chest x-ray borderline heart no acute cardiopulmonary problems. CT of neck right tonsil area swelling Discussion & Recommendations patient wanting to go home Discharge Home Medications: Active Scripts Active Cleocin HCl (Clindamycin HCl) 300 Mg Capsule 300 Mg PO TID 10 Days Eliquis (Apixaban) 5 Mg Tablet 5 Mg PO BID Toprol Xl (Metoprolol Succinate) 100 Mg Tab.er.24h 100 Mg PO DAILY Reported Atorvastatin Calcium 40 Mg Tablet 40 Mg PO HS Fish Oil 1,000 mg Softgel ([place]-3/Dha/Epa/Fish Oil) 1 Each Capsule 1,000 Mg PO HS Instructions to patient/family Please see electonic discharge instructions given to patient. Clinical Quality Measures DVT/VTE Risk/Contraindication: Risk Factor Score Per Nursin RFS Level Per Nursing on Admit: 2=Moderate KHUSHBU RAMON DO Feb 14, 2017 07:33
== END 2017-02-12 11:50 | disposition home or self-care (01) | DRG 153 ==
LOC: EDUNIT# 11:46 → ER 11:48 → UNDOADMOB 12:45 → ICU 12:45 → OBSVTOIN 02-12 08:06 → INTOOBSV 02-12 08:06 → UNDODISIN 02-12 11:50
PROVIDERS: ADMIT Family Medicine; ATTEND Family Medicine
DX: J36 Peritonsillar abscess (principal); I48.2 Chronic atrial fibrillation; I48.92 Unspecified atrial flutter; I10 Essential (primary) hypertension; I25.10 Atherosclerotic heart disease of native coronary artery without angina pectoris; E78.5 Hyperlipidemia, unspecified; E78.00 Pure hypercholesterolemia, unspecified; G47.33 Obstructive sleep apnea (adult) (pediatric); Z95.5 Presence of coronary angioplasty implant and graft; Z91.14 Patient's other noncompliance with medication regimen
CPT/HCPCS: 36415; 70490; 71010; 80053; 83605; 83735; 84100; 84484; 85007; 85025; 85027; 86618; 86666; 86668; 86757; 87040; 93005; G0378

== ENCOUNTER → 2017-03-19 | Outpatient (CLI) | payer MEDICARE, OTHER ==
[~2017-03-19] MED LIST changes: +APIX5TAB PO; +ASPI-808 PO; +CATHETER FLUSH 10 ML SYR IV PRN; +CLIN300C3 PO; +IOHEXOL 350 MG/ML 100 ML (OMNIPAQUE 350) VIAL IV ONE; +METO-370 PO; +METO100T6 PO; +NS 100 ML (IVPB) BAG IV ONE; +OMEG-160 PO
[2017-03-19 13:30] LABS: BLOOD UREA NITROGEN 11 MG/DL (7-18); BUN/CREATININE RATIO 11; CREATININE SERUM 1.03 MG/DL (0.60-1.30); GFR ESTIMATED > 60
--- NOTE | 2017-03-19 14:44 | Diagnostic Imaging Report ---
PROCEDURE: CT abdomen and pelvis with contrast. TECHNIQUE: Multiple contiguous axial images were obtained through the abdomen and pelvis after administration of intravenous contrast. INDICATION: Abdominal distention. 100 ML of Omnipaque 350 is administered intravenously. FINDINGS: There is minimal scarring in the left lung base and a tiny calcified granuloma measuring 4 mm similar to 2007 exam. The liver, the gallbladder, the spleen, and adrenal glands appear unremarkable. The pancreas appear unremarkable. The kidneys demonstrate bilateral cysts mostly on the right side and the largest is 7.1 cm in size. There is no hydronephrosis. There is a nonobstructive stone measuring 4 mm in the lower pole of the right kidney. The abdominal aorta is normal in caliber. No para-aortic significantly enlarged lymph nodes seen. There is a small fat-containing umbilical hernia. There is thickening and enhancement in the wall of the colon involving the rectum to the splenic flexure suggestive of infectious or inflammatory colitis. There are multiple diverticula seen mostly in the sigmoid colon. The pattern is not suggestive of diverticulitis however. There is no significant free fluid or fluid collection in the abdomen or pelvis. The prostate gland is 5.4 cm in transverse dimension. The appendix is normal in appearance. The osseous structures demonstrate generally mild degenerative changes. IMPRESSION: 1. Wall thickening and enhancement in the rectum and colon to the splenic flexure level is suggestive of inflammatory or infectious colitis. 2. Prominent sigmoid diverticulosis. No evidence of diverticulitis. 3. Fat-containing small umbilical hernia. 4. Enlarged prostate. Dr. Chu was called and informed of the findings at time of dictation. Dictated by: Dictated on workstation # [id number]
== END ==
LOC: RAD 12:48
PROVIDERS: ATTEND Family Medicine
DX: K57.30 Diverticulosis of large intestine without perforation or abscess without bleeding (principal); K63.89 Other specified diseases of intestine; K42.9 Umbilical hernia without obstruction or gangrene; N40.0 Benign prostatic hyperplasia without lower urinary tract symptoms; N28.9 Disorder of kidney and ureter, unspecified
CPT/HCPCS: 36415; 74177; 82565; 84520

== ENCOUNTER → 2018-05-29 | Outpatient (CLI) | payer MEDICARE, OTHER ==
[~2018-05-29] MED LIST changes: -CATHETER FLUSH 10 ML SYR IV PRN; +FURO40TA4 PO; -IOHEXOL 350 MG/ML 100 ML (OMNIPAQUE 350) VIAL IV ONE; +METO-395 PO; -NS 100 ML (IVPB) BAG IV ONE; +POTA10CA43 PO
== END ==
LOC: CARD 09:01
PROVIDERS: ATTEND Internal Medicine Cardiovascular Disease
DX: I50.33 Acute on chronic diastolic (congestive) heart failure (principal); I25.10 Atherosclerotic heart disease of native coronary artery without angina pectoris; I48.2 Chronic atrial fibrillation; E78.5 Hyperlipidemia, unspecified; R06.02 Shortness of breath; Z79.01 Long term (current) use of anticoagulants; I34.0 Nonrheumatic mitral (valve) insufficiency
CPT/HCPCS: 93225; 93226; 93306

== ENCOUNTER → 2018-06-12 | Outpatient (CLI) | payer MEDICARE, OTHER ==
[~2018-06-12] VITALS: Ht 172.7 cm; Wt 83.9 kg
[~2018-06-12] MED LIST changes: +CATHETER FLUSH 10 ML SYR IV PRN; +REGADENOSON 0.4 MG/5 ML SYR (LEXISCAN) IV ONE
[2018-06-12 08:33] VITALS: BP 131/78
== END ==
LOC: CARD 06:59
PROVIDERS: ATTEND Nurse Practitioner Family
DX: I25.10 Atherosclerotic heart disease of native coronary artery without angina pectoris (principal)
CPT/HCPCS: 78452; 93017

== ENCOUNTER 2018-07-14 07:00 | Day surgery (SDC) | payer MEDICARE, OTHER ==
[~2018-07-14] VITALS: Ht 172.7 cm; Wt 86.2 kg
[2018-07-14] VITALS (13 sets, daily range): BP systolic 120–151; BP diastolic 77–113
[~2018-07-14 07:00] MED LIST changes: -CATHETER FLUSH 10 ML SYR IV PRN; -REGADENOSON 0.4 MG/5 ML SYR (LEXISCAN) IV ONE
[2018-07-14] MEDS ORDERED: HEParin (CATH LAB) 2,000 ML IV ONE (07:07)
[2018-07-14] MEDS ORDERED: LIDOCAINE 1% INJ 20 ML 20 ML VIAL ONE (07:07)
[2018-07-14] MEDS ORDERED: NS IV 1000 ML 1,000 ML ONE (07:07)
[2018-07-14] MEDS ORDERED: NS IV 1000 ML 1,000 ML IV SCH (07:15)
[2018-07-14] MEDS ORDERED: fentaNYL INJECTION 100 MCG/2 ML AMP ONE (07:26)
[2018-07-14] MEDS ORDERED: MIDAZOLAM 5 MG/5 ML (VERSED) VIAL ONE (07:26)
[2018-07-14] MEDS ORDERED: HEParin 1000 UNIT/ML (10ML VIAL) FOR BOLUS ONE (07:26)
[2018-07-14 07:29] LABS: HEMOGLOBIN 15.9 G/DL (13.3-17.7); MEAN PLATELET VOLUME 10.9 FL (7.4-10.4); RED BLOOD COUNT 5.18 10^6/uL (4.35-5.85); RED CELL DISTRIBUTION WIDTH 14.1 % (10.0-14.5); WHITE BLOOD COUNT 6.9 10^3/uL (4.3-11.0)
[2018-07-14] MEDS ORDERED: FURO40TA4 PO (07:32)
[2018-07-14] MEDS ORDERED: METO-370 PO (07:32)
[2018-07-14] MEDS ORDERED: POTA10TA36 PO (07:32)
[2018-07-14] MEDS ORDERED: OMEG-126 PO (07:32)
[2018-07-14 07:48] LABS: INR 0.9 (0.8-1.4); PROTHROMBIN TIME PATIENT 12.3 SEC (12.2-14.7)
[2018-07-14 07:53] LABS: ALBUMIN 4.4 GM/DL (3.2-4.5); BILIRUBIN,TOTAL 0.7 MG/DL (0.1-1.0); CALCIUM 9.9 MG/DL (8.5-10.1); CREATININE SERUM 1.36 MG/DL (0.60-1.30); POTASSIUM 3.9 MMOL/L (3.6-5.0); TOTAL PROTEIN 7.1 GM/DL (6.4-8.2)
[2018-07-14] MEDS ORDERED: FLU QUADRIvalent (5+ YOA) 2018-2019 (AFLURIA) 0.5 ML IM ONE (08:15)
[2018-07-14] MEDS ORDERED: EPTIFIBATIDE BOLUS 20 ML IV ONE (08:54)
[2018-07-14] MEDS ORDERED: NITRO DRIP 25000 MCG/D5W 250 ML IV ONE (08:56)
--- NOTE | 2018-07-14 09:49 | Cardiac Procedure Note-CS/ASA ---
Pre-Procedure Note Pre-Op Procedure Note H&P Reviewed The H&P was reviewed, patient examined and no changes noted. Date H&P Reviewed: Jul 14, 2018 Time H&P Reviewed: 08:35 Conscious Sedation Pre-Proced Time 08:35 ASA Score 3 For ASA 3 and 4: Consider anesthesia and medical clearance. Also, for patients with a history of failed moderate sedation consider anesthesia. Airway Lungs Heart ASA score ASA 1: a normal healthy patient ASA 2: a patient with a mild systemic disease (mid diabetes, controlled hypertension, obesity ASA 3: a patient with a severe systemic disease that limits activity (angina , COPD, prior Myocardial infarction) ASA 4: a patient with an incapacitating disease that is a constant threat to life (CHF, renal failure) ASA 5: a moribund patient not expected to survive 24 hrs. (ruptured aneurysm) ASA 6: a declared brain patient whose organs are being harvested. For emergent operations, add the letter E after the classification Mallampati Classification Grade 2 Sedation Plan Analgesia, Amnesia, Plan communicated to team members, Discussed options with patient/fam, Discussed risks with patient/fam The patient is an appropriate candidate to undergo the planned procedure, sedation, and anesthesia. The patient immediately re-assessed prior to indication. RG OLIVEIRA MD FACP FAC CCDS Jul 14, 2018 09:49
[2018-07-14] MEDS ORDERED: PATIENT MAY USE OWN MEDS, ALL PO SCH (10:00)
[2018-07-14] MEDS ORDERED: ASPIRIN 81 MG CHEW (CHILDREN'S ASA) PO ONE (10:00)
[2018-07-14] MEDS ORDERED: ACETAMINOPHEN 325 MG TABLET PO PRN (10:00)
[2018-07-14] MEDS ORDERED: CLOPIDOGREL 300 MG (PLAVIX) TABLET PO ONE ×2 (10:00→12:21)
--- NOTE | 2018-07-14 10:37 | CARDIAC CATHETERIZATION ---
DATE OF SERVICE: 07/14/2018 The patient is an 82-year-old gentleman who has known coronary artery disease and has been having intermittent chest discomfort suggestive of new onset of angina. Myocardial perfusion imaging was indicative of some ischemia. Given history and continuing symptoms, cardiac catheterization was carried out after having obtained informed consent for cardiac catheterization and ad hoc coronary intervention. Vigorous perioperative hydration was carried out to reduce risk of contrast nephropathy, given his baseline renal insufficiency. He is fully aware of the additional risk of contrast nephropathy, given his baseline renal insufficiency and has provided informed consent. DESCRIPTION OF PROCEDURE: He was brought to the cardiac catheterization laboratory in a fasting state. Right groin was prepared and draped in the usual sterile fashion. A 1% lidocaine was used for local anesthesia. Modified Seldinger technique was used to advance a 5-Kosovan sheath into the right femoral artery. A 5-Kosovan JL4 catheter was used for left coronary angiography. A 5-Kosovan JR4 catheter was used for right coronary angiography. A 5-Kosovan pigtail catheter was used for left heart catheterization. Left ventricular angiography was not performed. This was to conserve contrast to reduce risk of contrast nephropathy. PERCUTANEOUS INTERVENTION TO THE LEFT ANTERIOR DESCENDING ARTERY: Following completion of the diagnostic procedure, we carried out percutaneous intervention to the mid to distal left anterior descending artery where the patient had 90% stenosis in a relatively small caliber vessel. We exchanged the sheath over a wire for a 6-Kosovan sheath. We used a 6-Kosovan JL3.5 guide catheter to engage the left coronary system and we were able to advance a choice floppy wire across the lesion in the mid to distal left anterior descending artery with moderate difficulty and the tip of the vessel was to place in the distal vessel. We carried out balloon angioplasty at the site of 90% stenosis with Emerge 1.5 x 15 mm balloon. This reduced the stenosis to 50% residual with good distal flow. The angioplasty equipment was removed. Angiography of the right femoral artery had been carried out through the sheath at the beginning of the procedure. At the end of the procedure, Mynx was used to achieve hemostasis. The patient received 6000 units of intravenous heparin and double bolus of Integrilin during the procedure. He tolerated the procedure well. HEMODYNAMICS: Left ventricular end-diastolic pressure following coronary angiography was 23 mmHg. There is no significant pressure gradient on pullback across the aortic valve. Ascending aortic pressure was 139/104 with a mean of 77 mmHg. LEFT VENTRICULAR ANGIOGRAPHY: Left ventricular angiography was not performed to conserve contrast to reduce risk of contrast nephropathy. CORONARY ANGIOGRAPHY: Diffuse coronary calcification is present. Left main coronary artery does not exhibit obstructive disease. Left anterior descending artery has 30% ostial stenosis and 90% mid to distal vessel stenosis. To the 90% stenosis, successful balloon angioplasty was carried out with reduction of stenosis to 50% or less. The left circumflex artery is nondominant and has diffuse moderate disease. The right coronary artery is dominant and has diffuse mild to moderate disease. There is a patent stent in the proximal to mid portion of the right coronary artery with approximately 50% in-stent restenosis. CONCLUSIONS: 1. A 90% fvn-pu-xnygmm vessel stenosis of the left anterior descending artery within a small caliber vessel to which balloon angioplasty was carried out which reduced the stenosis to less than 50%. The rest of the coronary vessels have moderate diffuse disease. There is a patent stent in the right coronary with a 50% in-stent restenosis (unchanged compared to previous study). 2. Elevated left ventricular end-diastolic pressure. DISCUSSION AND RECOMMENDATIONS: Risk factor modification has been reviewed. Perioperative hydration is being continued to reduce risk of contrast nephropathy. He is being hospitalized for overnight observation. Job ID: [id number] DocumentID: [id number] Dictated Date: 07/14/2018 09:46:22 Operating Table Assembler Date: 07/14/2018 10:36:04 Dictated By: RG OLIVEIRA MD, MA, FACP, FACC, MTDD
[2018-07-14] MEDS ORDERED: ASPIRIN 325 MG (5 GR) TABLET ONE (12:21)
[2018-07-14] MEDS ORDERED: ASPIRIN 81 MG CHEW (CHILDREN'S ASA) ONE (12:27)
[2018-07-14] MEDS: NS IV 1000 ML 1,000 ML IV SCH ×2 (14:32→20:21)
[2018-07-14] MEDS ORDERED: ATORVASTATIN 40 MG (LIPITOR) TABLET PO SCH ×2 (21:00)
[2018-07-15] VITALS: BP 138/93
[2018-07-15 03:45] LABS: MEAN PLATELET VOLUME 11.4 FL (7.4-10.4); RED BLOOD COUNT 4.94 10^6/uL (4.35-5.85); WHITE BLOOD COUNT 6.3 10^3/uL (4.3-11.0)
[2018-07-15 04:00] VITALS: BP 128/87
[2018-07-15 04:04] LABS: BUN/CREATININE RATIO 16; CALCIUM 9.3 MG/DL (8.5-10.1); CARBON DIOXIDE 22 MMOL/L (21-32); CHLORIDE 106 MMOL/L (98-107); GFR ESTIMATED > 60; GLUCOSE 92 MG/DL (70-105); POTASSIUM 4.1 MMOL/L (3.6-5.0); SODIUM 139 MMOL/L (135-145)
[2018-07-15] MEDS: NS IV 1000 ML 1,000 ML IV SCH (06:53)
--- NOTE | 2018-07-15 08:03 | Progress Note-Cardiology ---
Cardiology SOAP Progress Note Subjective: Sitting up in a chair at the bedside. No c/o CP, palpitations, syncope, dyspnea or near syncope. No c/o groin pain. Wants to go home. Objective: I&O/Vital Signs 07/15/18 07/15/18 07/15/18 07/15/18 04:00 07:00 08:00 13:00 Temp 97.9 Pulse 73 68 66 B/P (MAP) 128/87 (101) Pulse Ox 98 O2 Delivery Room Air Room Air 07/15/18 00:00 Intake Total 1700 ml Output Total 450 ml Balance 1250 ml Weight (Pounds): 190 Weight (Ounces): 0.0 Weight (Calculated Kilograms): 86.621596 Side: right Groin site without hematoma: Yes Condition: DP/PT pulses palpable, extremity w/d/p Bruising: mild bruising Constitutional: AAO x 3, well-developed, well-nourished Respiratory: No accessory muscle use, No respiratory distress; chest expansion is symmetric, chest is bilaterally symmetric Cardiovascular: irregularly irregular; No JVD; S1 and S2 Gastrointestional: No tender; soft, round, audible bowel sounds Extremities: no lower extremity edema bilateral Neurologic/Psychiatric: grossly intact Skin: No rash, No ulcerations Results/Procedures: Labs Laboratory Tests 07/15/18 02:55: White Blood Count 6.3, Red Blood Count 4.94, Hemoglobin 15.0, Hematocrit 45, Mean Corpuscular Volume 92, Mean Corpuscular Hemoglobin 30, Mean Corpuscular Hemoglobin Concent 33, Red Cell Distribution Width 14.0, Platelet Count 153, Mean Platelet Volume 11.4H, Sodium Level 139, Potassium Level 4.1, Chloride Level 106, Carbon Dioxide Level 22, Anion Gap 11, Blood Urea Nitrogen 18, Creatinine 1.10, Estimat Glomerular Filtration Rate > 60, BUN/Creatinine Ratio 16, Glucose Level 92, Calcium Level 9.3 Microbiology 07/14/18 MRSA Screen - Final, Complete MRSA not isolated Procedures Cardiac cath of 07-14-18. Please refer to cardiac cath note for details. A/P: Assessment: CAD - Cardiac cath of 07-14-18: 90% pgm-zq-icmfrj vessel stenosis of the left anterior descending artery within a small caliber vessel to which balloon angioplasty was carried out which reduced the stenosis to less than 50%. The rest of the coronary vessels have moderate diffuse disease. There is a patent stent in the right coronary with a 50% in-stent restenosis (unchanged compared to previous study). Elevated left ventricular end-diastolic pressure. MPI of 06/12/18: mild basal inf ischemia, LVEF 60%. Subsequent cardiac cath as noted above Chronic reynolds CHF. Echo of 05/29/18: LVEF 60-65%, mild LA and RA dilatation, mild MR, PASP 30-35 mmHg P. Atrial fibrillation/flutter that now appears to be chronic, permanent. Holter of 05/29/18: A Fib/Flutter with avg vent rate 95 bpm, no VT, no significant reji, isolated and coupled PVCs Hyperlipidemia. History of intermittent noncompliance of medications OAC with Eliquis Umbilical hernia Suspected ANANT Plan: Renal function improved with post procedure hydration Discussed cardiac cath results and coronary intervention Continue current medication regimen Discharge home today with out pt f/u appt Physician Assessment Physician Assessment No chest discomfort or shortness of breath. No palp or syncope Lungs: good bilat air entry Cor: irreg Ext: no c/c; mod pitting and nonpitting edema of the legs; mild bruising in R groin at site of access A&R * As documented in our note above that I updated (italics) * Complex management due to multiple comorbidities * We discussed in detail his cath findings and interventions undertaken, and answered his questions * Close outpt f/u advised SO MARCIAL Jul 15, 2018 08:03 RG OLIVEIRA MD FACP [facility] Jul 15, 2018 16:02
[2018-07-15] MEDS: ASPIRIN 81 MG CHEW (CHILDREN'S ASA) PO SCH ×2 (08:59→12:05)
--- NOTE | 2018-07-15 08:59 | Discharge Inst-Cardiology ---
Discharge Inst-Cardiac Discharge Medications New Medications: Aspirin (Aspirin) 81 Mg Tab.chew 81 MG PO DAILY, #30 TAB 5 Refills Continued Medications: Apixaban (Eliquis) 5 Mg Tablet 5 MG PO DAILY, TAB Atorvastatin Calcium (Atorvastatin Calcium) 40 Mg Tablet 40 MG PO HS, TAB Furosemide (Furosemide) 40 Mg Tablet 40 MG PO DAILY, TAB Metoprolol Succinate (Metoprolol Succinate) 50 Mg Tab.er.24h 50 MG PO DAILY, TAB Monroe-3/Dha/Epa/Fish Oil (Fish Oil EC 1,200 mg Softgel) 1 Each Capsule.dr 1 EACH PO DAILY, CAP Potassium Chloride (Potassium Chloride) 10 Meq Tab.er.prt 10 MEQ PO DAILY Patient Instructions Patient Instructions: Please schedule follow up appointment to see Dr. Lynne in a week Orders-Post D/C & Referrals Pneu Vac Indicated: Yes SO MARCIAL Jul 15, 2018 08:59
[2018-07-15] MEDS ORDERED: APIXABAN 5 MG (ELIQUIS) TABLET PO SCH ×2 (09:00)
[2018-07-15] MEDS ORDERED: FUROSEMIDE 40 MG (LASIX) TAB PO SCH ×2 (09:00)
[2018-07-15] MEDS ORDERED: OMEGA 3 (FISH OIL) 1000 MG CAP PO SCH (09:00)
[2018-07-15] MEDS ORDERED: KCL 10 MEQ TAB (MICRO K) PO SCH ×2 (09:00)
[2018-07-15] MEDS ORDERED: meTOproloL SUCCINATE 50 MG (TOPROL XL) TAB PO SCH ×2 (09:00)
[2018-07-15] MEDS ORDERED: FISH OIL 1200 MG PO SCH (09:00)
[2018-07-15] MEDS ORDERED: ASPI-999 PO (09:01)
== END 2018-07-15 13:52 | disposition home or self-care (01) ==
LOC: CATH 07:00 → ICU 09:42 → CATH 07-15 13:52
PROVIDERS: ATTEND Internal Medicine Cardiovascular Disease
DX: I25.10 Atherosclerotic heart disease of native coronary artery without angina pectoris (principal); T82.855A Stenosis of coronary artery stent, initial encounter; I50.32 Chronic diastolic (congestive) heart failure; I48.0 Paroxysmal atrial fibrillation; I48.92 Unspecified atrial flutter; E78.5 Hyperlipidemia, unspecified; R06.02 Shortness of breath; K40.90 Unilateral inguinal hernia, without obstruction or gangrene, not specified as recurrent; I34.0 Nonrheumatic mitral (valve) insufficiency; Z79.01 Long term (current) use of anticoagulants; Z91.19 Patient's noncompliance with other medical treatment and regimen; Z95.5 Presence of coronary angioplasty implant and graft
CPT/HCPCS: 36415; 80048; 80053; 80061; 85027; 85610; 85730; 87081; 93005; 93458

== ENCOUNTER → 2018-07-21 | Outpatient (CLI) | payer MEDICARE, OTHER ==
[~2018-07-21] MED LIST changes: +ASPI-999 PO; +OMEG-126 PO; +POTA10TA36 PO
--- NOTE | 2018-07-21 09:39 | Diagnostic Imaging Report ---
Right lower extremity arterial Doppler. Indication: Right groin pain. Reportedly, the patient recently underwent a cardiac catheterization procedure. On this exam there is good arterial blood flow in the common femoral and superficial femoral artery. There is no sign of pseudoaneurysm. There is perhaps some soft tissue edema in the puncture site but there is no hematoma identified with certainty. Impression: 1. There is no acute vascular abnormality of the right groin. Specifically there is no sign of pseudoaneurysm. 2. These results were called to Dr. Lynne's office by our sonologist. Dictated by: Dictated on workstation # [id number]
== END ==
LOC: RAD 08:34
PROVIDERS: ATTEND Internal Medicine Cardiovascular Disease
DX: M79.604 Pain in right leg (principal); R10.31 Right lower quadrant pain; I25.10 Atherosclerotic heart disease of native coronary artery without angina pectoris
CPT/HCPCS: 93926

== ENCOUNTER → 2018-11-23 | Outpatient (CLI) | payer MEDICARE, OTHER ==
--- NOTE | 2018-11-23 19:01 | Diagnostic Imaging Report ---
INDICATION: Right hip pain. TIME OF EXAM: 02:53 p.m. FINDINGS: Two views of the right hip show normal femoral acetabular alignment. There is some medial and superior joint space narrowing compatible with degenerative change. Femoral head and neck are intact. There are no fractures. IMPRESSION: Degenerative changes. No acute bony abnormality is detected. Dictated by: Dictated on workstation # [id number]
== END ==
LOC: RAD 14:45
PROVIDERS: ATTEND Family Medicine
DX: M16.11 Unilateral primary osteoarthritis, right hip (principal)
CPT/HCPCS: 73502

== ENCOUNTER → 2018-12-02 | Outpatient (CLI) | payer MEDICARE, OTHER ==
--- NOTE | 2018-12-02 11:45 | Diagnostic Imaging Report ---
CLINICAL INDICATION: Patient with low back pain and right hip pain. EXAM: MRI of the lumbar spine performed without IV contrast. Sagittal T2, sagittal T1, sagittal T2 fat-sat, and axial T2. COMPARISON: None. FINDINGS: There is no acute lumbar spine fracture. There is a minimal amount of degenerative marrow edema involving the left side of the L4 pedicle. There are minimal Modic type II degenerative signal changes scattered anteriorly throughout the lumbar spine. There is an intraosseous hemangioma within the left side of the L2 vertebra. There is a 5 mm x 13 mm (AP x CC) intrathecal, nodular, and amorphous appearing area seen anteriorly along the cauda equina and nerve roots seen at the T12-L1 intervertebral level. This is not completely imaged on the axial sequence. There is lumbar spine degenerative disease with vertebral body spurs and facet arthropathy. There is no significant paraspinal soft tissue abnormality. There are multiple right renal cysts which are partially visualized. The largest one measures at least 4.4 cm but this one is incompletely imaged. T10-T11: There is a diffuse disc bulge and mild facet arthropathy which causes severe bilateral neuroforaminal narrowing and mild central canal narrowing. T11-T12: Unremarkable. T12-L1: There is mild facet arthropathy. There is no significant central spinal canal or neural foramen narrowing. L1-L2: There is mild diffuse disc bulge and mild to moderate bilateral facet arthropathy. There is mild right neuroforaminal narrowing and no significant left neuroforaminal narrowing. There is minimal impression upon the thecal sac. L2-L3: There is subtle grade 1 retrolisthesis of L2 on L3. There is a diffuse disc bulge with moderate loss of intervertebral disc height. There is a chronic Schmorl's node involving the upper L3 endplate. There is moderate bilateral facet arthropathy/hypertrophy and ligamentum flavum buckling. There is moderate to severe central canal narrowing and severe bilateral neuroforaminal narrowing. L3-L4: There is subtle grade 1 anterolisthesis of L3 on L4. There is a diffuse disc bulge and mild loss of intervertebral disc height. There is severe bilateral facet arthropathy/hypertrophy and ligamentum flavum buckling. There is severe central canal narrowing and moderate to severe right neuroforaminal narrowing and severe left neuroforaminal narrowing. L4-L5: There is diffuse disc bulge with mild loss of intervertebral disc height. There is moderate bilateral facet arthropathy and ligamentum flavum buckling. There is mild central canal narrowing and severe bilateral neuroforaminal narrowing (right side more than the left). L5-S1: There is moderate right facet arthropathy and mild left facet arthropathy. There is mild left neuroforaminal narrowing. There is no significant central canal or right neuroforaminal narrowing. IMPRESSION: 1. There is a 5 mm x 13 mm intrathecal, nodular, and amorphous area along the cauda equina nerve roots at the T12-L1 level anteriorly. Considerations may include a sheath tumor or a myxopapillary ependymoma. Drop metastasis is unlikely unless the patient has a history of neoplasm within the neural access. MRI of the lumbar spine with contrast is suggested to better evaluate. 2. There is multilevel lumbar spine degenerative disc disease with diffuse disc bulge and facet arthropathy, worse at the L2-L3, L3-L4, and L4-5 levels, as described above. 3. There is subtle grade 1 retrolisthesis of L2 on L3 and grade 1 anterolisthesis of L3 on L4. 4. The report was faxed to the office of Dr. Chu by JONATHON@11:30 am. Dictated by: Dictated on workstation # [id number]
== END ==
LOC: RAD 09:06
PROVIDERS: ATTEND Family Medicine
DX: M48.07 Spinal stenosis, lumbosacral region (principal); M46.87 Other specified inflammatory spondylopathies, lumbosacral region; M51.26 Other intervertebral disc displacement, lumbar region; M51.36 Other intervertebral disc degeneration, lumbar region; M43.16 Spondylolisthesis, lumbar region; M51.46 Schmorl's nodes, lumbar region; M46.85 Other specified inflammatory spondylopathies, thoracolumbar region; M51.24 Other intervertebral disc displacement, thoracic region; M48.04 Spinal stenosis, thoracic region; M47.816 Spondylosis without myelopathy or radiculopathy, lumbar region; N28.1 Cyst of kidney, acquired
CPT/HCPCS: 72148

== ENCOUNTER → 2018-12-09 | Outpatient (CLI) | payer MEDICARE, OTHER ==
[~2018-12-09] MED LIST changes: +GADOBUTROL 10 MMOL/10 ML (GADAVIST) VIAL IV ONE
--- NOTE | 2018-12-09 16:27 | Diagnostic Imaging Report ---
PROCEDURE: MR imaging lumbar spine with contrast. TECHNIQUE: Multiplanar, multisequence MR imaging of the lumbar spine was performed with contrast. INDICATION: Low-back pain, right leg pain, occasionally radicular down the left leg, intradural nodule. FINDINGS: Post IV contrast-enhanced multiplanar T1-weighted imaging performed. Elongated enhancing intradural nodule just below the tip of the conus medullaris slightly eccentric to the left measures 11.9 mm longitudinal, 4.3 mm transverse and 4 mm AP. This suggests a process such as ependymoma or meningioma. No other mass lesion is found. No suspicious lumbar marrow enhancement. Multilevel spondylosis greatest at the L4-L5 level stable. There are nonenhancing renal cysts partially visualized, most notably on the right unchanged. IMPRESSION: The intradural nodule at the proximal aspect of the cauda equina does show homogenous enhancement following contrast. Considerations remain process such as meningioma, nerve sheath tumor or ependymoma. No abnormal marrow enhancement. No other enhancing lesions. Spondylosis and stenosis at the L4-L5 level with renal cyst partially visualized unchanged. Dictated by: Dictated on workstation # [id number]
== END ==
LOC: RAD 15:13
PROVIDERS: ATTEND Family Medicine
DX: M48.061 Spinal stenosis, lumbar region without neurogenic claudication (principal); M47.816 Spondylosis without myelopathy or radiculopathy, lumbar region; N28.1 Cyst of kidney, acquired; M51.86 Other intervertebral disc disorders, lumbar region
CPT/HCPCS: 72149

== ENCOUNTER → 2018-12-09 | Outpatient (CLI) | payer MEDICARE, OTHER ==
[~2018-12-09] MED LIST changes: -GADOBUTROL 10 MMOL/10 ML (GADAVIST) VIAL IV ONE
[2018-12-09 14:53] LABS: CREATININE SERUM 1.39 MG/DL (0.60-1.30)
== END ==
LOC: LAB 14:22
PROVIDERS: ATTEND Family Medicine
DX: N28.9 Disorder of kidney and ureter, unspecified (principal)
CPT/HCPCS: 36415; 82565; 84520

== ENCOUNTER 2019-01-06 09:47 | Emergency (ER) | payer MEDICARE, OTHER ==
[~2019-01-06] VITALS: Ht 172.7 cm; Wt 83.9 kg
--- OUTSIDE RECORDS SUMMARY | 2019-01-06 10:11 | XMS REPORT | Continuity of Care Document ---
Author Organization Unknown Address Unknown Allergies Active Description Code Type Severity Reaction Onset Reported/Identified Relationship to Patient Clinical Status Yes No Known Drug Allergies [id number] Drug Allergy Mild N/A 03/01/2008 Yes No Known Drug Allergies [id number] Drug Allergy Unknown N/A 03/09/2018 Medications There is no data. Problems Date Dx Coded Attending Type Code Diagnosis Diagnosed By 02/19/2016 SHANTEL MCCLURE APRN Ot S80.811A ABRASION, RIGHT LOWER LEG, INITIAL ENCOU 02/19/2016 SHANTEL MCCLURE APRN Ot W31.9XXA CONTACT WITH UNSPECIFIED MACHINERY, INIT 02/19/2016 SHANTEL MCCLURE APRN Ot Y99.8 OTHER EXTERNAL CAUSE STATUS 02/21/2016 SHANTEL MCCLURE APRN Ot S80.811A ABRASION, RIGHT LOWER LEG, INITIAL ENCOU 02/21/2016 SHANTEL MCCLURE APRN Ot W31.9XXA CONTACT WITH UNSPECIFIED MACHINERY, INIT 02/21/2016 SHANTEL MCCLURE APRN Ot Y99.8 OTHER EXTERNAL CAUSE STATUS 02/25/2016 SHANTEL MCCLURE APRN Ot S80.811A ABRASION, RIGHT LOWER LEG, INITIAL ENCOU 02/25/2016 SHANTEL MCCLURE APRN Ot W31.9XXA CONTACT WITH UNSPECIFIED MACHINERY, INIT 02/25/2016 SHANTEL MCCLURE APRN Ot Y99.8 OTHER EXTERNAL CAUSE STATUS 02/12/2017 GELDEBORAHDER DOKHUSHBU Ot E78.00 PURE HYPERCHOLESTEROLEMIA, UNSPECIFIED 02/12/2017 KHUSHBU RAMON DO Ot E78.5 HYPERLIPIDEMIA, UNSPECIFIED 02/12/2017 KHUSHBU RAMON DO Ot G47.33 OBSTRUCTIVE SLEEP APNEA (ADULT) (PEDIATR 02/12/2017 KHUSHBU RAMON DO Ot I10 ESSENTIAL (PRIMARY) HYPERTENSION 02/12/2017 KHUSHBU RAMON DO Ot I25.10 ATHSCL HEART DISEASE OF [place] CORONARY 02/12/2017 [facility]END[facility] DO, KHUSHBU Zimmer Ot I48.2 CHRONIC ATRIAL FIBRILLATION 02/12/2017 GELLENDER DO, KHUSHBU Zimmer Ot I48.92 UNSPECIFIED ATRIAL FLUTTER 02/12/2017 GE[facility]ENDER DO, KHUSHBU Zimmer Ot J36 PERITONSILLAR ABSCESS 02/12/2017 GELLENDER DO, KHUSHBU Zimmer Ot Z91.14 PATIENT'S OTHER NONCOMPLIANCE WITH MEDIC 02/12/2017 GE[facility]ENDER DO, KHUSHBU Zimmer Ot Z95.5 PRESENCE OF CORONARY ANGIOPLASTY IMPLANT 02/18/2017 GE[facility]ENDER DO, KHUSHBU Zimmer Ot E78.00 PURE HYPERCHOLESTEROLEMIA, UNSPECIFIED 02/18/2017 GELLENDER DO, KHUSHBU Zimmer Ot E78.5 HYPERLIPIDEMIA, UNSPECIFIED 02/18/2017 GELLENDER DO, KHUSHBU Zimmer Ot G47.33 OBSTRUCTIVE SLEEP APNEA (ADULT) (PEDIATR 02/18/2017 GELLENDER DO, KHUSHBU Zimmer Ot I10 ESSENTIAL (PRIMARY) HYPERTENSION 02/18/2017 GELLENDER DO, KHUSHBU Zimmer Ot I25.10 ATHSCL HEART DISEASE OF [place] CORONARY 02/18/2017 GELLENDER DO, KHUSHBU Zimmer Ot I48.2 CHRONIC ATRIAL FIBRILLATION 02/18/2017 GELLENDER DO, KHUSHBU Zimmer Ot I48.92 UNSPECIFIED ATRIAL FLUTTER 02/18/2017 GELLENDER DO, KHUSHBU Zimmer Ot J36 PERITONSILLAR ABSCESS 02/18/2017 GELLENDER DO, KHUSHBU Zimmer Ot Z91.14 PATIENT'S OTHER NONCOMPLIANCE WITH MEDIC 02/18/2017 GELLENDER DO, KHUSHBU Zimmer Ot Z95.5 PRESENCE OF CORONARY ANGIOPLASTY IMPLANT 03/20/2017 GELLENDER DO, KHUSHBU Zimmer Ot K42.9 UMBILICAL HERNIA WITHOUT OBSTRUCTION OR 03/20/2017 GELLENDER DO, KHUSHBU Zimmer Ot K57.30 DVRTCLOS OF LG INT W/O PERFORATION OR AB 03/20/2017 GELLENDER DO, KHUSHBU Zimmer Ot K63.89 OTHER SPECIFIED DISEASES OF INTESTINE 03/20/2017 GELLENDER DO, KHUSHBU Zimmer Ot N28.9 DISORDER OF KIDNEY AND URETER, UNSPECIFI 03/20/2017 GELLENDER DO, KHUSHBU Zimmer Ot N40.0 BENIGN PROSTATIC HYPERPLASIA WITHOUT LOW 04/11/2017 GELLENDER DO, KHUSHBU Zimmer Ot K42.9 UMBILICAL HERNIA WITHOUT OBSTRUCTION OR 04/11/2017 GELLENDER DO, KHUSHBU Zimmer Ot K57.30 DVRTCLOS OF LG INT W/O PERFORATION OR AB 04/11/2017 GELLENDER DO, KHUSHBU Zimmer Ot K63.89 OTHER SPECIFIED DISEASES OF INTESTINE 04/11/2017 GELLENDER DO, KHUSHBU Zimmer Ot N28.9 DISORDER OF KIDNEY AND URETER, UNSPECIFI 04/11/2017 GELLENDER DO, KHUSHBU Zimmer Ot N40.0 BENIGN PROSTATIC HYPERPLASIA WITHOUT LOW 04/15/2017 GELLENDER DO, KHUSHBU Zimmer Ot K42.9 UMBILICAL HERNIA WITHOUT OBSTRUCTION OR 04/15/2017 GELLENDER DO, KHUSHBU Zimmer Ot K57.30 DVRTCLOS OF LG INT W/O PERFORATION OR AB 04/15/2017 GELLENDER DO, KHUSHBU Zimmer Ot K63.89 OTHER SPECIFIED DISEASES OF INTESTINE 04/15/2017 GELLENDER DO, KHUSHBU Zimmer Ot N28.9 DISORDER OF KIDNEY AND URETER, UNSPECIFI 04/15/2017 GELLENDER DO, KHUSHBU Zimmer Ot N40.0 BENIGN PROSTATIC HYPERPLASIA WITHOUT LOW 03/11/2018 GELLENDER DO, KHUSHBU Zimmer Ot E78.00 PURE HYPERCHOLESTEROLEMIA, UNSPECIFIED 03/11/2018 GELLENDER DO, KHUSHBU Zimmer Ot G47.33 OBSTRUCTIVE SLEEP APNEA (ADULT) (PEDIATR 03/11/2018 GELLENDER DO, KHUSHBU Zimmer Ot I08.1 RHEUMATIC DISORDERS OF BOTH MITRAL AND T 03/11/2018 GELLENDER DO, KHUSHBU Zimmer Ot I25.10 ATHSCL HEART DISEASE OF [place] CORONARY 03/11/2018 GELLENDER DO, KHUSHBU Zimmer Ot I48.0 PAROXYSMAL ATRIAL FIBRILLATION 03/11/2018 GELLENDER DO, KHUSHBU Zimmer Ot I48.92 UNSPECIFIED ATRIAL FLUTTER 03/11/2018 GELLENDER DO, KHUSHBU Zimmer Ot I50.31 ACUTE DIASTOLIC (CONGESTIVE) HEART FAILU 03/11/2018 GELLENDER DO, KHUSHBU Zimmer Ot K42.9 UMBILICAL HERNIA WITHOUT OBSTRUCTION OR 03/11/2018 GELLENDER DO, KHUSHBU Zimmer Ot K64.9 UNSPECIFIED HEMORRHOIDS 03/11/2018 GELLENDER DOKHUSHBU Ot R00.1 BRADYCARDIA, UNSPECIFIED 03/11/2018 GELLENDER DO, KHUSHBU Zimmer Ot R74.8 ABNORMAL LEVELS OF OTHER SERUM ENZYMES 03/11/2018 GELLENDER DO, KHUSHBU Zimmer Ot Z79.01 FPC (CURRENT) USE OF ANTICOAGULANT 03/11/2018 GELLENDER DO, KHUSHBU Zimmer Ot Z87.442 PERSONAL HISTORY OF URINARY CALCULI 03/11/2018 KHUSHBU RAMON DO Ot Z91.19 PATIENT'S NONCOMPLIANCE W OT MEDICAL TR 03/11/2018 KHUSHBU RAMON DO Ot Z95.5 PRESENCE OF CORONARY ANGIOPLASTY IMPLANT 03/11/2018 KHUSHBU RAMON DO Ot Z97.4 PRESENCE OF EXTERNAL HEARING-AID 05/28/2018 ROXANNE MCDANIELS FACC, ALI FACP CCDS Ot R06.02 SHORTNESS OF BREATH 05/29/2018 ROXANNE MCDANIELS FACC, ALI FACP CCDS Ot R06.02 SHORTNESS OF BREATH 05/29/2018 ROXANNE MCDANIELS FACC, ALI FACP CCDS Ot R06.02 SHORTNESS OF BREATH 06/02/2018 ROXANNE MCDANIELS FACC, ALI FACP CCDS Ot E78.5 HYPERLIPIDEMIA, UNSPECIFIED 06/02/2018 ROXANNE MCDANIELS FACC, ALI FACP CCDS Ot I25.10 ATHSCL HEART DISEASE OF [place] CORONARY 06/02/2018 ROXANNE MCDANIELS FACC, ALI FACP CCDS Ot I34.0 NONRHEUMATIC MITRAL (VALVE) INSUFFICIENC 06/02/2018 ROXANNE MCDANIELS FACC, ALI FACP CCDS Ot I48.2 CHRONIC ATRIAL FIBRILLATION 06/02/2018 ROXANNE MCDANIELS FACC, ALI FACP CCDS Ot I50.33 ACUTE ON CHRONIC DIASTOLIC (CONGESTIVE) 06/02/2018 ROXANNE MCDANIELS FACC, ALI FACP CCDS Ot R06.02 SHORTNESS OF BREATH 06/02/2018 ROXANNE SILVERC, ALI FACP CCDS Ot Z79.01 SUSTAINABILITY COMMUNICATOR (CURRENT) USE OF ANTICOAGULANT 06/15/2018 SO MARCIAL Ot I25.10 ATHSCL HEART DISEASE OF [place] CORONARY 06/18/2018 ROXANNE MCDANIELS FACC, ALI FACP CCDS Ot E78.5 HYPERLIPIDEMIA, UNSPECIFIED 06/18/2018 ROXANNE SILVERC, ALI FACP CCDS Ot I25.10 ATHSCL HEART DISEASE OF [place] CORONARY 06/18/2018 ROXANNE MCDANIELS FACC, ALI FACP CCDS Ot I34.0 NONRHEUMATIC MITRAL (VALVE) INSUFFICIENC 06/18/2018 ROXANNE MCDANIELS FACC, ALI FACP CCDS Ot I48.2 CHRONIC ATRIAL FIBRILLATION 06/18/2018 ROXANNE MCDANIELS FACC, ALI FACP CCDS Ot I50.33 ACUTE ON CHRONIC DIASTOLIC (CONGESTIVE) 06/18/2018 ROXANNE MCDANIELS FACC, ALI FACP CCDS Ot R06.02 SHORTNESS OF BREATH 06/18/2018 ROXANNE MCDANIELS FACC, ALI FACP CCDS Ot Z79.01 FPC (CURRENT) USE OF ANTICOAGULANT 06/24/2018 ROXANNE MCDANIELS FACC, ALI FACP CCDS Ot E78.5 HYPERLIPIDEMIA, UNSPECIFIED 06/24/2018 ROXANNE MCDANIELS FACC, ALI FACP CCDS Ot I25.10 ATHSCL HEART DISEASE OF [place] CORONARY 06/24/2018 ROXANNE MCDANIELS FACC, ALI FACP CCDS Ot I34.0 NONRHEUMATIC MITRAL (VALVE) INSUFFICIENC 06/24/2018 ROXANNE MCDANIELS FACC, ALI FACP CCDS Ot I48.2 CHRONIC ATRIAL FIBRILLATION 06/24/2018 ROXANNE MCDANIELS FACC, ALI FACP CCDS Ot I50.33 ACUTE ON CHRONIC DIASTOLIC (CONGESTIVE) 06/24/2018 ROXANNE MCDANIELS FACC, ALI FACP CCDS Ot R06.02 SHORTNESS OF BREATH 06/24/2018 ROXANNE SILVERC, ALI FACP CCDS Ot Z79.01 FPC (CURRENT) USE OF ANTICOAGULANT 07/06/2018 SO MARCIAL ADMISSIONS CLERK Ot I25.10 ATHSCL HEART DISEASE OF [place] CORONARY 07/09/2018 SO MARCIAL ADMISSIONS CLERK Ot I25.10 ATHSCL HEART DISEASE OF [place] CORONARY 07/15/2018 ROXANNE MCDANIELS FACC, ALI FACP CCDS Ot E78.5 HYPERLIPIDEMIA, UNSPECIFIED 07/15/2018 ROXANNE MCDANIELS FACC, ALI FACP CCDS Ot I25.10 ATHSCL HEART DISEASE OF [place] CORONARY 07/15/2018 ROXANNE MCDANIELS FACC, ALI FACP CCDS Ot I34.0 NONRHEUMATIC MITRAL (VALVE) INSUFFICIENC 07/15/2018 RXOANNE MCDANIELS FACC, ALI FACP CCDS Ot I48.0 PAROXYSMAL ATRIAL FIBRILLATION 07/15/2018 ROXANNE MCDANIELS FACC, ALI FACP CCDS Ot I48.92 UNSPECIFIED ATRIAL FLUTTER 07/15/2018 ROXANNE MCDANIELS FACC, ALI FACP CCDS Ot I50.32 CHRONIC DIASTOLIC (CONGESTIVE) HEART RONI 07/15/2018 ROXANNE SILVERC, ALI FACP CCDS Ot K40.90 UNIL INGUINAL HERNIA, W/O OBST OR GANGR, 07/15/2018 ROXANNE MCDANIELS FACC, ALI FACP CCDS Ot R06.02 SHORTNESS OF BREATH 07/15/2018 ROXANNE MCDANIELS FACC, ALI FACP CCDS Ot T82.855A STENOSIS OF CORONARY ARTERY STENT, INITI 07/15/2018 ROXANNE MCDANIELS FACC, ALI FACP CCDS Ot Z79.01 SUSTAINABILITY COMMUNICATOR (CURRENT) USE OF ANTICOAGULANT 07/15/2018 ROXANNE MCDANIELS FACC, ALI FACP CCDS Ot Z91.19 PATIENT'S NONCOMPLIANCE W [facility] MED[facility] TR 07/15/2018 ROXANNE MCDANIELS FACC, ALI FACP CCDS Ot Z95.5 PRESENCE OF CORONARY ANGIOPLASTY IMPLANT 07/17/2018 ROXANNE MCDANIELS FACC, ALI FACP CCDS Ot E78.5 HYPERLIPIDEMIA, UNSPECIFIED 07/17/2018 ROXANNE MCDANIELS FACC, ALI FACP CCDS Ot I25.10 ATHSCL HEART DISEASE OF [place] CORONARY 07/17/2018 ROXANNE MCDANIELS FACC, ALI FACP CCDS Ot I34.0 NONRHEUMATIC MITRAL (VALVE) INSUFFICIENC 07/17/2018 ROXANNE MCDANIELS FACC, ALI FACP CCDS Ot I48.0 PAROXYSMAL ATRIAL FIBRILLATION 07/17/2018 ROXANNE MCDANIELS FACC, ALI FACP CCDS Ot I48.92 UNSPECIFIED ATRIAL FLUTTER 07/17/2018 ROXANNE MCDANIELS FACC, ALI FACP CCDS Ot I50.32 CHRONIC DIASTOLIC (CONGESTIVE) HEART RONI 07/17/2018 ROXANNE MCDANIELS FACC, ALI FACP CCDS Ot K40.90 UNIL INGUINAL HERNIA, W/O OBST OR GANGR, 07/17/2018 ROXANNE MCDANIELS FACC, ALI FACP CCDS Ot R06.02 SHORTNESS OF BREATH 07/17/2018 ROXANNE MCDANIELS FACC, ALI FACP CCDS Ot T82.855A STENOSIS OF CORONARY ARTERY STENT, INITI 07/17/2018 ROXANNE MCDANIELS FACC, ALI FACP CCDS Ot Z79.01 FPC (CURRENT) USE OF ANTICOAGULANT 07/17/2018 ROXANNE MCDANIELS FACC, ALI FACP CCDS Ot Z91.19 PATIENT'S NONCOMPLIANCE W [facility] MED[facility] TR 07/17/2018 ROXANNE MCDANIELS FACC, ALI FACP CCDS Ot Z95.5 PRESENCE OF CORONARY ANGIOPLASTY IMPLANT 07/26/2018 ROXANNE MCDANIELS FACC, ALI FACP CCDS Ot I25.10 ATHSCL HEART DISEASE OF [place] CORONARY 07/26/2018 [facility] Ot M79.604 PAIN IN RIGHT LEG 07/26/2018 [facility] Ot R10.31 RIGHT LOWER QUADRANT PAIN 11/23/2018 [facility], KHUSHBU Zimmer Ot M16.11 UNILATERAL PRIMARY OSTEOARTHRITIS, RIGHT 12/04/2018 [facility] K[facility]USH[facility] Zimmer Ot M43.16 SPONDYLOLISTHESIS, LUMBAR REGION 12/04/2018 GELLENDER DO, KHUSHBU Zimmer Ot 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, THORAC 12/04/2018 GELLENDER DO, KHUSHBU Zimmer Ot M46.87 OT INFLAMMATORY SPONDYLOPATHIES, LUMBOS 12/04/2018 [facility] Zimmer Ot M47.816 SPONDYLOSIS W/O MYELOPATHY OR RADICULOPA 12/04/2018 [facility] DO, KHUSHBU Zimmer Ot M48.04 SPINAL STENOSIS, THORACIC REGION 12/04/2018 [facility] KHUSH[facility] Zimmer Ot M48.07 SPINAL STENOSIS, LUMBOSACRAL REGION 12/04/[facility] KHUSH[facility] Zimmer Ot M51.24 OTHER INTERVERTEBRAL DISC DISPLACEMENT, 12/04/2018 [facility], KHUSHBU Zimmer Ot M51.26 OTHER INTERVERTEBRAL DISC DISPLACEMENT, 12/04/2018 [facility] KHUSH[facility] Zimmer Ot M51.36 OTHER INTERVERTEBRAL DISC DEGENERATION, 12/04/2018 GELLENDER DO, KHUSHBU Zimmer Ot 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, LUMBAR REGION 12/04/2018 [facility] DO, KHUSHBU Zimmer Ot N28.1 CYST OF KIDNEY, ACQUIRED 12/11/2018 [facility] KHUSHBU Zimmer Ot N28.9 DISORDER OF KIDNEY AND URETER, UNSPECIFI 12/11/2018 GELLENDER DO, KHUSHBU Zimmer Ot N28.9 DISORDER OF KIDNEY AND URETER, UNSPECIFI 12/15/2018 GELLENDER DO, KHUSHBU Zimmer Ot M16.11 UNILATERAL PRIMARY OSTEOARTHRITIS, RIGHT 12/23/2018 GELLENDER DO, KHUSHBU Zimmer Ot M16.11 UNILATERAL PRIMARY OSTEOARTHRITIS, RIGHT 12/29/2018 GELLENDER DO, KHUSHBU Zimmer Ot M43.16 SPONDYLOLISTHESIS, LUMBAR REGION 12/29/2018 GELLENDER DO, KHUSHBU Zimmer Ot 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, THORAC 12/29/2018 GELLENDER DO, KHUSHBU Zimmer Ot M46.87 OTH INFLAMMATORY SPONDYLOPATHIES, LUMBOS 12/29/2018 GELLENDER DO, KHUSHBU Zimmer Ot M47.816 SPONDYLOSIS W/O MYELOPATHY OR RADICULOPA 12/29/2018 GELLENDER DO, KHUSHBU Zimmer Ot M48.04 SPINAL STENOSIS, THORACIC REGION 12/29/2018 GELLENDER DO, KHUSHBU Zimmer Ot M48.07 SPINAL STENOSIS, LUMBOSACRAL REGION 12/29/2018 GELLENDER DO, KHUSHBU Zimmer Ot M51.24 OTHER INTERVERTEBRAL DISC DISPLACEMENT, 12/29/2018 GELLENDER DO, KHUSHBU Zimmer Ot M51.26 OTHER INTERVERTEBRAL DISC DISPLACEMENT, 12/29/2018 GELLENDER DO, KHUSHBU Zimmer Ot M51.36 OTHER INTERVERTEBRAL DISC DEGENERATION, 12/29/2018 GELLENDER DO, KHUSHBU Zimmer Ot 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 Results Test Result Range Complete blood count (CBC) with automated white blood cell (WBC) differential - 02/11/17 11:55 Blood leukocytes automated count (number/volume) 14.4 10*3/uL 4.3-11.0 Blood erythrocytes automated count (number/volume) 5.59 10*6/uL 4.35-5.85 Venous blood hemoglobin measurement (mass/volume) 16.5 g/dL 13.3-17.7 Blood hematocrit (volume fraction) 51 % 40-54 Automated erythrocyte mean corpuscular volume 91 [foz_us] 80-99 Automated erythrocyte mean corpuscular hemoglobin (mass per erythrocyte) 30 pg 25-34 Automated erythrocyte mean corpuscular hemoglobin concentration measurement ( mass/volume) 32 g/dL 32-36 Automated erythrocyte distribution width ratio 14.8 % 10.0-14.5 Automated blood platelet count (count/volume) 178 10*3/uL 130-400 Automated blood platelet mean volume measurement 10.8 [foz_us] 7.4-10.4 Automated blood neutrophils/100 leukocytes 82 % 42-75 Automated blood lymphocytes/100 leukocytes 10 % 12-44 Blood monocytes/100 leukocytes 8 % 0-12 Automated blood eosinophils/100 leukocytes 0 % 0-10 Automated blood basophils/100 leukocytes 0 % 0-10 Blood neutrophils automated count (number/volume) 11.7 10*3 1.8-7.8 Blood lymphocytes automated count (number/volume) 1.5 10*3 1.0-4.0 Blood monocytes automated count (number/volume) 1.1 10*3 0.0-1.0 Automated eosinophil count 0.0 10*3/uL 0.0-0.3 Automated blood basophil count (count/volume) 0.0 10*3/uL 0.0-0.1 Comprehensive metabolic panel - 02/11/17 11:55 Serum or plasma sodium measurement (moles/volume) 145 mmol/L 135-145 Serum or plasma potassium measurement (moles/volume) 3.9 mmol/L 3.6-5.0 Serum or plasma chloride measurement (moles/volume) 108 mmol/L 98-107 Carbon dioxide 24 mmol/L 21-32 Serum or plasma anion gap determination (moles/volume) 13 mmol/L 5-14 Serum or plasma urea nitrogen measurement (mass/volume) 27 mg/dL 7-18 Serum or plasma creatinine measurement (mass/volume) 1.21 mg/dL 0.60-1.30 Serum or plasma urea nitrogen/creatinine mass ratio 22 NRG Serum or plasma creatinine measurement with calculation of estimated glomerular filtration rate 58 NRG Serum or plasma glucose measurement (mass/volume) 119 mg/dL 70-105 Serum or plasma calcium measurement (mass/volume) 9.9 mg/dL 8.5-10.1 Serum or plasma total bilirubin measurement (mass/volume) 1.2 mg/dL 0.1-1.0 Serum or plasma alkaline phosphatase measurement (enzymatic activity/volume) 95 U/L 40-136 Serum or plasma aspartate aminotransferase measurement (enzymatic activity/ volume) 49 U/L 5-34 Serum or plasma alanine aminotransferase measurement (enzymatic activity/volume ) 62 U/L 0-55 Serum or plasma protein measurement (mass/volume) 7.8 g/dL 6.4-8.2 Serum or plasma albumin measurement (mass/volume) 4.5 g/dL 3.2-4.5 Serum or plasma troponin i.cardiac measurement (mass/volume) - 02/11/17 11:55 Serum or plasma troponin i.cardiac measurement (mass/volume) < ng/ mL <0.30 Blood manual differential performed detection - 02/11/17 11:55 Blood monocytes/100 leukocytes 4 % NR Manual blood segmented neutrophils/100 leukocytes 84 % NRG Manual blood lymphocytes/100 leukocytes 11 % NRG Manual blood basophils/100 leukocytes 1 % NR Blood erythrocyte morphology finding identification NORMAL NR Bacterial blood culture - 02/11/17 12:15 Bacterial blood culture NG NRG Blood lactic acid measurement (moles/volume) - 02/11/17 12:42 Blood lactic acid measurement (moles/volume) 1.62 mmol/L 0.50-2.00 Bacterial blood culture - 02/11/17 12:42 Bacterial blood culture NG [facility] Tick identification panel - 02/11/17 13:13 Serum Ehrlichia chaffeensis IgG antibody detection <1:16 <1:16 Serum Ehrlichia chaffeensis IgM antibody detection <1:10 <1:10 Serum Rickettsia rickettsii IgG antibody assay (units/volume) < <1:16 [place] spotted fever panel < <1:10 Francisella tularensis antibody assay <1:20 [facility] LYME AB G M < 0.01 0.00-0.89 Interpretation of Lyme disease antibody assay Negative Negative Complete blood count (CBC) with automated white blood cell (WBC) differential - 02/12/17 04:07 Blood leukocytes automated count (number/volume) 11.1 10*3/uL 4.3-11.0 Blood erythrocytes automated count (number/volume) 5.06 10*6/uL 4.35-5.85 Venous blood hemoglobin measurement (mass/volume) 15.1 g/dL 13.3-17.7 Blood hematocrit (volume fraction) 46 % 40-54 Automated erythrocyte mean corpuscular volume 91 [foz_us] 80-99 Automated erythrocyte mean corpuscular hemoglobin (mass per erythrocyte) 30 pg 25-34 Automated erythrocyte mean corpuscular hemoglobin concentration measurement ( mass/volume) 33 g/dL 32-36 Automated erythrocyte distribution width ratio 14.6 % 10.0-14.5 Automated blood platelet count (count/volume) 153 10*3/uL 130-400 Automated blood platelet mean volume measurement 11.2 [foz_us] 7.4-10.4 Automated blood neutrophils/100 leukocytes 87 % 42-75 Automated blood lymphocytes/100 leukocytes 10 % 12-44 Blood monocytes/100 leukocytes 3 % 0-12 Automated blood eosinophils/100 leukocytes 0 % 0-10 Automated blood basophils/100 leukocytes 0 % 0-10 Blood neutrophils automated count (number/volume) 9.6 10*3 1.8-7.8 Blood lymphocytes automated count (number/volume) 1.1 10*3 1.0-4.0 Blood monocytes automated count (number/volume) 0.4 10*3 0.0-1.0 Automated eosinophil count 0.0 10*3/uL 0.0-0.3 Automated blood basophil count (count/volume) 0.0 10*3/uL 0.0-0.1 Comprehensive metabolic panel - 02/12/17 04:07 Serum or plasma sodium measurement (moles/volume) 142 mmol/L 135-145 Serum or plasma potassium measurement (moles/volume) 4.0 mmol/L 3.6-5.0 Serum or plasma chloride measurement (moles/volume) 110 mmol/L 98-107 Carbon dioxide 21 mmol/L 21-32 Serum or plasma anion gap determination (moles/volume) 11 mmol/L 5-14 Serum or plasma urea nitrogen measurement (mass/volume) 25 mg/dL 7-18 Serum or plasma creatinine measurement (mass/volume) 0.89 mg/dL 0.60-1.30 Serum or plasma urea nitrogen/creatinine mass ratio 28 NRG Serum or plasma creatinine measurement with calculation of estimated glomerular filtration rate > NRG Serum or plasma glucose measurement (mass/volume) 132 mg/dL 70-105 Serum or plasma calcium measurement (mass/volume) 9.0 mg/dL 8.5-10.1 Serum or plasma total bilirubin measurement (mass/volume) 0.6 mg/dL 0.1-1.0 Serum or plasma alkaline phosphatase measurement (enzymatic activity/volume) 74 U/L 40-136 Serum or plasma aspartate aminotransferase measurement (enzymatic activity/ volume) 40 U/L 5-34 Serum or plasma alanine aminotransferase measurement (enzymatic activity/volume ) 51 U/L 0-55 Serum or plasma protein measurement (mass/volume) 6.3 g/dL 6.4-8.2 Serum or plasma albumin measurement (mass/volume) 3.6 g/dL 3.2-4.5 Serum or plasma phosphate measurement (mass/volume) - 02/12/17 04:07 Serum or plasma phosphate measurement (mass/volume) 2.0 mg/dL 2.3-4.7 Magnesium - 02/12/17 04:07 Magnesium 2.1 mg/dL 1.8-2.4 [id number] - 03/19/17 13:00 Serum or plasma urea nitrogen measurement (mass/volume) 11 mg/dL 7-18 Serum or plasma creatinine measurement (mass/volume) 1.03 mg/dL 0.60-1.30 Serum or plasma urea nitrogen/creatinine mass ratio 11 NRG Serum or plasma creatinine measurement with calculation of estimated glomerular filtration rate > NRG Complete blood count (CBC) with automated white blood cell (WBC) differential - 03/09/18 15:18 Blood leukocytes automated count (number/volume) 8.5 10*3/uL 4.3-11.0 Blood erythrocytes automated count (number/volume) 4.69 10*6/uL 4.35-5.85 Venous blood hemoglobin measurement (mass/volume) 14.0 g/dL 13.3-17.7 Blood hematocrit (volume fraction) 42 % 40-54 Automated erythrocyte mean corpuscular volume 90 [foz_us] 80-99 Automated erythrocyte mean corpuscular hemoglobin (mass per erythrocyte) 30 pg 25-34 Automated erythrocyte mean corpuscular hemoglobin concentration measurement ( mass/volume) 33 g/dL 32-36 Automated erythrocyte distribution width ratio 15.3 % 10.0-14.5 Automated blood platelet count (count/volume) 169 10*3/uL 130-400 Automated blood platelet mean volume measurement 11.4 [foz_us] 7.4-10.4 Automated blood neutrophils/100 leukocytes 75 % 42-75 Automated blood lymphocytes/100 leukocytes 13 % 12-44 Blood monocytes/100 leukocytes 10 % 0-12 Automated blood eosinophils/100 leukocytes 1 % 0-10 Automated blood basophils/100 leukocytes 0 % 0-10 Blood neutrophils automated count (number/volume) 6.3 10*3 1.8-7.8 Blood lymphocytes automated count (number/volume) 1.1 10*3 1.0-4.0 Blood monocytes automated count (number/volume) 0.9 10*3 0.0-1.0 Automated eosinophil count 0.1 10*3/uL 0.0-0.3 Automated blood basophil count (count/volume) 0.0 10*3/uL 0.0-0.1 Blood lactic acid measurement (moles/volume) - 03/09/18 15:18 Blood lactic acid measurement (moles/volume) 1.01 mmol/L 0.50-2.00 Comprehensive metabolic panel - 03/09/18 15:18 Serum or plasma sodium measurement (moles/volume) 141 mmol/L 135-145 Serum or plasma potassium measurement (moles/volume) 3.7 mmol/L 3.6-5.0 Serum or plasma chloride measurement (moles/volume) 108 mmol/L 98-107 Carbon dioxide 23 mmol/L 21-32 Serum or plasma anion gap determination (moles/volume) 10 mmol/L 5-14 Serum or plasma urea nitrogen measurement (mass/volume) 22 mg/dL 7-18 Serum or plasma creatinine measurement (mass/volume) 1.25 mg/dL 0.60-1.30 Serum or plasma urea nitrogen/creatinine mass ratio 18 NRG Serum or plasma creatinine measurement with calculation of estimated glomerular filtration rate 56 NRG Serum or plasma glucose measurement (mass/volume) 113 mg/dL 70-105 Serum or plasma calcium measurement (mass/volume) 9.0 mg/dL 8.5-10.1 Serum or plasma total bilirubin measurement (mass/volume) 1.3 mg/dL 0.1-1.0 Serum or plasma alkaline phosphatase measurement (enzymatic activity/volume) 121 U/L 40-136 Serum or plasma aspartate aminotransferase measurement (enzymatic activity/ volume) 47 U/L 5-34 Serum or plasma alanine aminotransferase measurement (enzymatic activity/volume ) 94 U/L 0-55 Serum or plasma protein measurement (mass/volume) 6.5 g/dL 6.4-8.2 Serum or plasma albumin measurement (mass/volume) 4.0 g/dL 3.2-4.5 Serum or plasma lithium measurement (moles/volume) - 03/09/18 15:18 BNP level 331.0 pg/mL <100.0 Serum or plasma troponin i.cardiac measurement (mass/volume) - 03/09/18 15:18 Serum or plasma troponin i.cardiac measurement (mass/volume) < ng/ mL <0.30 Bacterial blood culture - 03/09/18 15:18 Bacterial blood culture NG NRG Bacterial blood culture - 03/09/18 15:25 Bacterial blood culture NG NRG Complete blood count (CBC) with automated white blood cell (WBC) differential - 03/10/18 05:39 Blood leukocytes automated count (number/volume) 8.9 10*3/uL 4.3-11.0 Blood erythrocytes automated count (number/volume) 4.61 10*6/uL 4.35-5.85 Venous blood hemoglobin measurement (mass/volume) 14.4 g/dL 13.3-17.7 Blood hematocrit (volume fraction) 41 % 40-54 Automated erythrocyte mean corpuscular volume 90 [foz_us] 80-99 Automated erythrocyte mean corpuscular hemoglobin (mass per erythrocyte) 31 pg 25-34 Automated erythrocyte mean corpuscular hemoglobin concentration measurement ( mass/volume) 35 g/dL 32-36 Automated erythrocyte distribution width ratio 15.1 % 10.0-14.5 Automated blood platelet count (count/volume) 167 10*3/uL 130-400 Automated blood platelet mean volume measurement 11.1 [foz_us] 7.4-10.4 Automated blood neutrophils/100 leukocytes 71 % 42-75 Automated blood lymphocytes/100 leukocytes 18 % 12-44 Blood monocytes/100 leukocytes 10 % 0-12 Automated blood eosinophils/100 leukocytes 1 % 0-10 Automated blood basophils/100 leukocytes 0 % 0-10 Blood neutrophils automated count (number/volume) 6.3 10*3 1.8-7.8 Blood lymphocytes automated count (number/volume) 1.6 10*3 1.0-4.0 Blood monocytes automated count (number/volume) 0.9 10*3 0.0-1.0 Automated eosinophil count 0.1 10*3/uL 0.0-0.3 Automated blood basophil count (count/volume) 0.0 10*3/uL 0.0-0.1 Comprehensive metabolic panel - 03/10/18 05:39 Serum or plasma sodium measurement (moles/volume) 143 mmol/L 135-145 Serum or plasma potassium measurement (moles/volume) 3.7 mmol/L 3.6-5.0 Serum or plasma chloride measurement (moles/volume) 108 mmol/L 98-107 Carbon dioxide 21 mmol/L 21-32 Serum or plasma anion gap determination (moles/volume) 14 mmol/L 5-14 Serum or plasma urea nitrogen measurement (mass/volume) 19 mg/dL 7-18 Serum or plasma creatinine measurement (mass/volume) 1.06 mg/dL 0.60-1.30 Serum or plasma urea nitrogen/creatinine mass ratio 18 NRG Serum or plasma creatinine measurement with calculation of estimated glomerular filtration rate > NRG Serum or plasma glucose measurement (mass/volume) 100 mg/dL 70-105 Serum or plasma calcium measurement (mass/volume) 8.9 mg/dL 8.5-10.1 Serum or plasma total bilirubin measurement (mass/volume) 1.1 mg/dL 0.1-1.0 Serum or plasma alkaline phosphatase measurement (enzymatic activity/volume) 117 U/L 40-136 Serum or plasma aspartate aminotransferase measurement (enzymatic activity/ volume) 31 U/L 5-34 Serum or plasma alanine aminotransferase measurement (enzymatic activity/volume ) 77 U/L 0-55 Serum or plasma protein measurement (mass/volume) 6.3 g/dL 6.4-8.2 Serum or plasma albumin measurement (mass/volume) 3.8 g/dL 3.2-4.5 Serum or plasma lithium measurement (moles/volume) - 03/10/18 05:39 BNP level 313.2 pg/mL <100.0 Complete blood count (CBC) with automated white blood cell (WBC) differential - 03/11/18 05:25 Blood leukocytes automated count (number/volume) 8.4 10*3/uL 4.3-11.0 Blood erythrocytes automated count (number/volume) 4.70 10*6/uL 4.35-5.85 Venous blood hemoglobin measurement (mass/volume) 14.3 g/dL 13.3-17.7 Blood hematocrit (volume fraction) 42 % 40-54 Automated erythrocyte mean corpuscular volume 89 [foz_us] 80-99 Automated erythrocyte mean corpuscular hemoglobin (mass per erythrocyte) 30 pg 25-34 Automated erythrocyte mean corpuscular hemoglobin concentration measurement ( mass/volume) 34 g/dL 32-36 Automated erythrocyte distribution width ratio 15.1 % 10.0-14.5 Automated blood platelet count (count/volume) 178 10*3/uL 130-400 Automated blood platelet mean volume measurement 11.1 [foz_us] 7.4-10.4 Automated blood neutrophils/100 leukocytes 67 % 42-75 Automated blood lymphocytes/100 leukocytes 20 % 12-44 Blood monocytes/100 leukocytes 11 % 0-12 Automated blood eosinophils/100 leukocytes 2 % 0-10 Automated blood basophils/100 leukocytes 0 % 0-10 Blood neutrophils automated count (number/volume) 5.6 10*3 1.8-7.8 Blood lymphocytes automated count (number/volume) 1.6 10*3 1.0-4.0 Blood monocytes automated count (number/volume) 0.9 10*3 0.0-1.0 Automated eosinophil count 0.2 10*3/uL 0.0-0.3 Automated blood basophil count (count/volume) 0.0 10*3/uL 0.0-0.1 Comprehensive metabolic panel - 03/11/18 05:25 Serum or plasma sodium measurement (moles/volume) 141 mmol/L 135-145 Serum or plasma potassium measurement (moles/volume) 3.6 mmol/L 3.6-5.0 Serum or plasma chloride measurement (moles/volume) 104 mmol/L 98-107 Carbon dioxide 25 mmol/L 21-32 Serum or plasma anion gap determination (moles/volume) 12 mmol/L 5-14 Serum or plasma urea nitrogen measurement (mass/volume) 17 mg/dL 7-18 Serum or plasma creatinine measurement (mass/volume) 0.98 mg/dL 0.60-1.30 Serum or plasma urea nitrogen/creatinine mass ratio 17 NRG Serum or plasma creatinine measurement with calculation of estimated glomerular filtration rate > NRG Serum or plasma glucose measurement (mass/volume) 104 mg/dL 70-105 Serum or plasma calcium measurement (mass/volume) 8.9 mg/dL 8.5-10.1 Serum or plasma total bilirubin measurement (mass/volume) 1.0 mg/dL 0.1-1.0 Serum or plasma alkaline phosphatase measurement (enzymatic activity/volume) 97 U/L 40-136 Serum or plasma aspartate aminotransferase measurement (enzymatic activity/ volume) 24 U/L 5-34 Serum or plasma alanine aminotransferase measurement (enzymatic activity/volume ) 58 U/L 0-55 Serum or plasma protein measurement (mass/volume) 5.9 g/dL 6.4-8.2 Serum or plasma albumin measurement (mass/volume) 3.5 g/dL 3.2-4.5 THYROID STIMULATING HORMONE - 03/11/18 05:25 THYROID STIMULATING HORMONE 0.86 u[iU]/mL 0.35-4.94 Automated blood complete blood count (hemogram) panel - 07/14/18 07:20 Blood leukocytes automated count (number/volume) 6.9 10*3/uL 4.3-11.0 Blood erythrocytes automated count (number/volume) 5.18 10*6/uL 4.35-5.85 Venous blood hemoglobin measurement (mass/volume) 15.9 g/dL 13.3-17.7 Blood hematocrit (volume fraction) 47 % 40-54 Automated erythrocyte mean corpuscular volume 92 [foz_us] 80-99 Automated erythrocyte mean corpuscular hemoglobin (mass per erythrocyte) 31 pg 25-34 Automated erythrocyte mean corpuscular hemoglobin concentration measurement ( mass/volume) 34 g/dL 32-36 Automated erythrocyte distribution width ratio 14.1 % 10.0-14.5 Automated blood platelet count (count/volume) 174 10*3/uL 130-400 Automated blood platelet mean volume measurement 10.9 [foz_us] 7.4-10.4 PT panel in platelet poor plasma by coagulation assay - 07/14/18 07:20 Prothrombin time (PT) in platelet poor plasma by coagulation assay 12.3 s 12.2-14.7 INR in platelet poor plasma or blood by coagulation assay 0.9 0.8-1.4 Activated partial thromboplastin time (aPTT) in platelet poor plasma bycoagulation assay - 07/14/18 07:20 Activated partial thromboplastin time (aPTT) in platelet poor plasma bycoagulation assay 33 s 24-35 Comprehensive metabolic panel - 07/14/18 07:20 Serum or plasma sodium measurement (moles/volume) 141 mmol/L 135-145 Serum or plasma potassium measurement (moles/volume) 3.9 mmol/L 3.6-5.0 Serum or plasma chloride measurement (moles/volume) 105 mmol/L 98-107 Carbon dioxide 25 mmol/L 21-32 Serum or plasma anion gap determination (moles/volume) 11 mmol/L 5-14 Serum or plasma urea nitrogen measurement (mass/volume) 22 mg/dL 7-18 Serum or plasma creatinine measurement (mass/volume) 1.36 mg/dL 0.60-1.30 Serum or plasma urea nitrogen/creatinine mass ratio 16 NRG Serum or plasma creatinine measurement with calculation of estimated glomerular filtration rate 50 NRG Serum or plasma glucose measurement (mass/volume) 96 mg/dL 70-105 Serum or plasma calcium measurement (mass/volume) 9.9 mg/dL 8.5-10.1 Serum or plasma total bilirubin measurement (mass/volume) 0.7 mg/dL 0.1-1.0 Serum or plasma alkaline phosphatase measurement (enzymatic activity/volume) 63 U/L 40-136 Serum or plasma aspartate aminotransferase measurement (enzymatic activity/ volume) 24 U/L 5-34 Serum or plasma alanine aminotransferase measurement (enzymatic activity/volume ) 24 U/L 0-55 Serum or plasma protein measurement (mass/volume) 7.1 g/dL 6.4-8.2 Serum or plasma albumin measurement (mass/volume) 4.4 g/dL 3.2-4.5 CALCIUM CORRECTED 9.6 mg/dL 8.5-10.1 Lipid 1996 panel - 07/14/18 07:20 Serum or plasma triglyceride measurement (mass/volume) 139 mg/dL <150 Serum or plasma cholesterol measurement (mass/volume) 175 mg/dL < 200 Serum or plasma cholesterol in HDL measurement (mass/volume) 61 mg/ dL 40-60 Cholesterol in LDL [mass/volume] in serum or plasma by direct assay 80 mg/dL 1-129 Serum or plasma cholesterol in VLDL measurement (mass/volume) 28 mg/ dL 5-40 Methicillin resistant Staphylococcus aureus (MRSA) screening culture - 07:20 Methicillin resistant Staphylococcus aureus (MRSA) screening culture NEG NRG Automated blood complete blood count (hemogram) panel - 07/15/18 02:55 Blood leukocytes automated count (number/volume) 6.3 10*3/uL 4.3-11.0 Blood erythrocytes automated count (number/volume) 4.94 10*6/uL 4.35-5.85 Venous blood hemoglobin measurement (mass/volume) 15.0 g/dL 13.3-17.7 Blood hematocrit (volume fraction) 45 % 40-54 Automated erythrocyte mean corpuscular volume 92 [foz_us] 80-99 Automated erythrocyte mean corpuscular hemoglobin (mass per erythrocyte) 30 pg 25-34 Automated erythrocyte mean corpuscular hemoglobin concentration measurement ( mass/volume) 33 g/dL 32-36 Automated erythrocyte distribution width ratio 14.0 % 10.0-14.5 Automated blood platelet count (count/volume) 153 10*3/uL 130-400 Automated blood platelet mean volume measurement 11.4 [foz_us] 7.4-10.4 Whole blood basic metabolic panel - 07/15/18 02:55 Serum or plasma sodium measurement (moles/volume) 139 mmol/L 135-145 Serum or plasma potassium measurement (moles/volume) 4.1 mmol/L 3.6-5.0 Serum or plasma chloride measurement (moles/volume) 106 mmol/L 98-107 Carbon dioxide 22 mmol/L 21-32 Serum or plasma anion gap determination (moles/volume) 11 mmol/L 5-14 Serum or plasma urea nitrogen measurement (mass/volume) 18 mg/dL 7-18 Serum or plasma creatinine measurement (mass/volume) 1.10 mg/dL 0.60-1.30 Serum or plasma urea nitrogen/creatinine mass ratio 16 NRG Serum or plasma creatinine measurement with calculation of estimated glomerular filtration rate > NRG Serum or plasma glucose measurement (mass/volume) 92 mg/dL 70-105 Serum or plasma calcium measurement (mass/volume) 9.3 mg/dL 8.5-10.1 [id number] - 12/09/18 14:30 Serum or plasma urea nitrogen measurement (mass/volume) 24 mg/dL 7-18 Serum or plasma creatinine measurement (mass/volume) 1.39 mg/dL 0.60-1.30 Serum or plasma urea nitrogen/creatinine mass ratio 17 NRG Serum or plasma creatinine measurement with calculation of estimated glomerular filtration rate 49 NRG Encounters ACCT No. Visit Date/Time Discharge Status Pt. Type Provider Facility Loc./Unit Complaint [id number] 12/09/2018 15:13:00 12/09/2018 23:59:59 CLS Outpatient KHUSHBU RAMON DO [facility] RAD [facility] AREA [id number] 12/09/2018 14:22:00 12/09/2018 23:59:59 CLS Outpatient KHUSHBU RAMON DO [facility] LAB KIDNEY FUNCTION [id number] 12/02/2018 09:06:00 12/02/2018 23:59:59 CLS Outpatient KHUSHBU RAMON DO [facility] RAD PAIN IN LOW BACK [id number] 11/23/2018 14:45:00 11/23/2018 23:59:59 CLS Outpatient KHUSHBU RAMON DO [facility] RAD PAIN IN RT HIP [id number] 07/21/2018 08:34:00 07/21/2018 23:59:59 CLS Outpatient ROXANNE MCDANIELS FACC, ALI FACP CCDS [facility] RAD PAIN IN RIGHT LEG,CAD [id number] 07/14/2018 07:00:00 07/15/2018 13:52:00 DIS Outpatient ROXANNE MCDANIELS FACC, RG FACP CCDS [facility] CATH CAD [id number] 06/12/2018 06:59:00 06/12/2018 23:59:59 CLS Outpatient SO MARCIALP [facility] CARD CAD I25.10 [id number] 06/05/2018 07:45:00 06/05/2018 07:45:00 CAN Preadmit SO MARCIAL ADMISSIONS CLERK [facility] CARD CAD [id number] 05/29/2018 09:01:00 05/29/2018 23:59:59 CLS Outpatient ROXANNE MCDANIELS FACC, ALI FACP CCDS [facility] CARD CAD,SOB, HYPERLIPIDEMIA [id number] 03/09/2018 16:56:00 03/11/2018 10:35:00 DIS Inpatient KHUSHBU RAMON DO [facility] 4TH PNEUMONIA [id number] 03/19/2017 12:48:00 03/19/2017 23:59:59 CLS Outpatient KHUSHBU RAMON DO [facility] RAD PASSING AIR, NO BOWEL MOVEMENT, CONSTIPATED [id number] 02/12/2017 08:06:00 02/12/2017 11:50:00 DIS Inpatient KHUSHBU RAMON DO [facility] ICU RT PERITONSILLAR ABSCESS,A FLUTTER W/ RVR [id number] 02/19/2016 18:09:00 02/19/2016 19:10:00 DIS Emergency SHANTEL MCCLURE APRN [facility] ER [id number] 01/28/2014 10:13:00 01/28/2014 23:59:59 CLS Outpatient [id number] 08/09/2013 17:02:00 08/09/2013 23:59:59 CLS Outpatient
--- NOTE | 2019-01-06 10:20 | ED EENT ---
History of Present Illness General Stated Complaint: NOSE BLEED Source: patient Exam Limitations: no limitations History of Present Illness Date Seen by Provider: Jan 06, 2019 Time Seen by Provider: 10:17 Initial Comments To ER per private vehicle from urgent care with reports of left-sided nosebleed since 11 PM last night. No history of this. He is on Eliquis for history of atrial fibrillation. He otherwise feels okay without lightheadedness shortness of breath fatigue/malaise. No syncope. Incidentally on arrival he is noted to be bradycardic with a rate in the upper 30s and low 40s. Urgent care did use silver nitrate sticks to cauterize the left side of the nose where the source of bleeding was believed to be Timing/Duration: this morning Severity: moderate Prearrival Treatment: no prearrival treatment Associated Symptoms: denies symptoms Allergies and Home Medications Allergies Coded Allergies: No Known Drug Allergies (Verified , 03/09/18) Home Medications Apixaban 5 Mg Tablet, 5 MG PO DAILY, (Reported) Aspirin 81 Mg Tab.chew, 81 MG PO DAILY Prescribed by: SO MARCIAL on 07/15/18 0901 Atorvastatin Calcium 40 Mg Tablet, 40 MG PO HS, (Reported) Doxazosin Mesylate 1 Mg Tablet, 1 MG PO HS Prescribed by: SHANTEL MCCLURE on 01/06/19 1145 Furosemide 40 Mg Tablet, 40 MG PO DAILY, (Reported) Metoprolol Succinate 50 Mg Tab.er.24h, 50 MG PO DAILY, (Reported) Metoprolol Succinate 25 Mg Tab.er.24h, 25 MG PO DAILY Prescribed by: SHANTEL MCCLURE on 01/06/19 1145 Bolton-3/Dha/Epa/Fish Oil 1 Each Capsule.dr, 1 EACH PO DAILY, (Reported) Potassium Chloride 10 Meq Tab.er.prt, 10 MEQ PO DAILY, (Reported) Patient Home Medication List Home Medication List Reviewed: Yes Review of Systems Review of Systems Constitutional: see HPI Eyes: No Symptoms Reported Ears: No Symptoms Reported Nose: see HPI, epistaxis Mouth: no symptoms reported Respiratory: no symptoms reported Cardiovascular: see HPI; No chest pain, No edema, No Hx of Intervention, No palpitations, No syncope, No vascular heart diseas Past Fosrpem-Klumls-Moklcy Hx Patient Social History Alcohol Beverage of Choice: Beer 2nd Hand Smoke Exposure: No Recent Hopitalizations: No Immunizations Up To Date Tetanus Booster (TDap): Less than 5yrs PED Vaccines UTD: No Seasonal Allergies Seasonal Allergies: No Past Medical History Surgeries: Yes (cardiac stent) Cardiac Respiratory: No Cardiac: Yes (cardiac stent) Atrial Fibrillation, Coronary Artery Disease, High Cholesterol Neurological: No Genitourinary: No Kidney Stones Gastrointestinal: Yes Abdominal Hernia, Hemorrhoids Musculoskeletal: No Endocrine: No HEENT: Yes Loss of Vision: Denies Hearing Impairment: Hearing Aide Right, Hearing Aide Left Cancer: No Psychosocial: No Integumentary: No Blood Disorders: No Adverse Reaction/Blood Tranf: No Family Medical History Completed stroke 21 FATHER G8 BROTHER FH: cancer G8 BROTHER G8 SISTER Physical Exam Vital Signs Vital Signs - First Documented 01/06/19 09:50 Temp 97.5 Pulse 42 Resp 18 B/P (MAP) 185/69 (107) Pulse Ox 97 Height, Weight, BMI Height: 5'8.00" Weight: 190lbs. 0.0oz. [id number]; 28.9 BMI Method:Stated General Appearance: WD/WN, no apparent distress Eyes: bilateral eye normal inspection, bilateral eye PERRL, bilateral eye EOMI Ears: bilateral ear auricle normal, bilateral ear canal normal, bilateral ear TM normal Nose: other (there is a grayish discoloration of the anterior aspect of the nasal septum on the left with no active bleeding seen at this time in the oropharynx or either nostril.) Neck: non-tender, full range of motion Cardiovascular: bradycardia Respiratory: no respiratory distress, no accessory muscle use Gastrointestinal: normal bowel sounds, non tender Skin: normal color, warm/dry Progress/Results/Core Measures Results/Orders Lab Results Laboratory Tests Test 01/06/19 10:55 Range/Units White Blood Count 8.6 4.3-11.0 10^3/uL Red Blood Count 4.15 L 4.35-5.85 10^6/uL Hemoglobin 12.4 L 13.3-17.7 G/DL Hematocrit 38 L 40-54 % Mean Corpuscular Volume 92 80-99 FL Mean Corpuscular Hemoglobin 30 25-34 PG Mean Corpuscular Hemoglobin Concent 32 32-36 G/DL Red Cell Distribution Width 14.1 10.0-14.5 % Platelet Count 177 130-400 10^3/uL Mean Platelet Volume 10.7 H 7.4-10.4 FL Neutrophils (%) (Auto) 76 H 42-75 % Lymphocytes (%) (Auto) 15 12-44 % Monocytes (%) (Auto) 8 0-12 % Eosinophils (%) (Auto) 1 0-10 % Basophils (%) (Auto) 0 0-10 % Neutrophils # (Auto) 6.5 1.8-7.8 X 10^3 Lymphocytes # (Auto) 1.3 1.0-4.0 X 10^3 Monocytes # (Auto) 0.7 0.0-1.0 X 10^3 Eosinophils # (Auto) 0.1 0.0-0.3 10^3/uL Basophils # (Auto) 0.0 0.0-0.1 10^3/uL Sodium Level 143 135-145 MMOL/L Potassium Level 4.3 3.6-5.0 MMOL/L Chloride Level 107 98-107 MMOL/L Carbon Dioxide Level 28 21-32 MMOL/L Anion Gap 8 5-14 MMOL/L Blood Urea Nitrogen 41 H 7-18 MG/DL Creatinine 1.13 0.60-1.30 MG/DL Estimat Glomerular Filtration Rate > 60 BUN/Creatinine Ratio 36 Glucose Level 98 70-105 MG/DL Calcium Level 9.3 8.5-10.1 MG/DL Corrected Calcium 9.3 8.5-10.1 MG/DL Magnesium Level 2.4 1.8-2.4 MG/DL Total Bilirubin 0.8 0.1-1.0 MG/DL Aspartate Amino Transf (AST/SGOT) 18 5-34 U/L Alanine Aminotransferase (ALT/SGPT) 22 0-55 U/L Alkaline Phosphatase 65 40-136 U/L Troponin I < 0.028 <0.028 NG/ML Total Protein 6.4 6.4-8.2 GM/DL Albumin 4.0 3.2-4.5 GM/DL My Orders Orders - SHANTEL MCCLURE APRN Cbc With Automated Diff (01/06/19 10:15) Comprehensive Metabolic Panel (01/06/19 10:15) Magnesium (01/06/19 10:15) Troponin I (01/06/19 10:15) Ekg Tracing (01/06/19 10:15) Clonidine Tablet (Catapres Tablet) (01/06/19 11:30) Doxazosin Tablet (Cardura Tablet) (01/06/19 11:45) Vital Signs/I&O 01/06/19 09:50 Temp 97.5 Pulse 42 Resp 18 B/P (MAP) 185/69 (107) Pulse Ox 97 Departure Communication (Admissions) Despite the bradycardia he denies any symptoms such as chest pain shortness of breath lightheadedness syncope or near syncope or fatigue. 1142-still no nosebleed at this time. I discussed the case with cardiology Dr. Lynne. Recommends reducing the Toprol dose by half and adding doxazosin 1 mg by mouth twice a day. Patient has an appointment with Dr. Lynne tomorrow. There was a small area of clot to the anterior aspect of the nasal septum. Decided to cauterize this with silver nitrate additionally to help torres off additional nosebleeds at home. Use of 3 silver nitrate sticks cause rebleeding slowly from this area. Nose clamp was applied for 20 minutes which ceased bleeding. Impression Primary Impression: Epistaxis Additional Impression: asymptomatic bradycardia Disposition: 01 HOME, SELF-CARE Condition: Stable Departure-Patient Inst. Decision time for Depature: 11:43 Referrals: KHUSHBU RAMON DO (PCP/Family) Primary Care Physician RG LYNNE MD [facility] Patient Instructions: Bradycardia, Nosebleeds (DC) Add. Discharge Instructions: 1. Return probably to the emergency room for any shortness of breath chest pain lightheadedness or passing out. Since you have already taken today's dose of Toprol, do not take any more, but given you a new prescription Toprol to fill and start tomorrow that is half the strength of your current Toprol. In addition , take the new blood pressure medication that does not affect heart rate. Keep your appointment with Dr. Lynne tomorrow. Scripts Doxazosin Mesylate (Doxazosin Mesylate) 1 Mg Tablet 1 MG PO HS, #10 TAB Prov: SHANTEL MCCLURE APRN 01/06/19 Metoprolol Succinate (Toprol Xl) 25 Mg Tab.er.24h 25 MG PO DAILY, #10 TAB Prov: SHANTEL MCCLURE APRN 01/06/19 Copy Copies To 1: RG LYNNE MD [facility] SHANTEL MCCLURE APRN Jan 06, 2019 10:20
--- NOTE | 2019-01-06 10:45 | NUR ---
NO BLEEDING FROM NOSE NOTED
[2019-01-06 11:02] LABS: BASOPHILS % (AUTO) 0 % (0-10); EOSINOPHILS # (AUTO) 0.1 10^3/uL (0.0-0.3); EOSINOPHILS % (AUTO) 1 % (0-10); HEMATOCRIT 38 % (40-54); HEMOGLOBIN 12.4 G/DL (13.3-17.7); LYMPHOCYTES # (AUTO) 1.3 X 10^3 (1.0-4.0); LYMPHOCYTES % (AUTO) 15 % (12-44); MEAN CORPUSCULAR HEMOGLOBIN 30 PG (25-34); MEAN CORPUSCULAR HGB CONC 32 G/DL (32-36); MEAN CORPUSCULAR VOLUME 92 FL (80-99); MEAN PLATELET VOLUME 10.7 FL (7.4-10.4); MONOCYTES # (AUTO) 0.7 X 10^3 (0.0-1.0); MONOCYTES % (AUTO) 8 % (0-12); NEUTROPHILS # (AUTO) 6.5 X 10^3 (1.8-7.8); NEUTROPHILS % (AUTO) 76 % (42-75); PLATELET COUNT 177 10^3/uL (130-400); RED CELL DISTRIBUTION WIDTH 14.1 % (10.0-14.5); WHITE BLOOD COUNT 8.6 10^3/uL (4.3-11.0)
[2019-01-06 11:27] LABS: ALANINE AMINOTRANSFERASE 22 U/L (0-55); ALKALINE PHOSPHATASE 65 U/L (40-136); BILIRUBIN,TOTAL 0.8 MG/DL (0.1-1.0); BUN/CREATININE RATIO 36; CALCIUM 9.3 MG/DL (8.5-10.1); CARBON DIOXIDE 28 MMOL/L (21-32); CHLORIDE 107 MMOL/L (98-107); CREATININE SERUM 1.13 MG/DL (0.60-1.30); GFR ESTIMATED > 60; GLUCOSE 98 MG/DL (70-105); MAGNESIUM 2.4 MG/DL (1.8-2.4); POTASSIUM 4.3 MMOL/L (3.6-5.0); SODIUM 143 MMOL/L (135-145); TOTAL PROTEIN 6.4 GM/DL (6.4-8.2)
[2019-01-06] MEDS ORDERED: cloNIDine 0.1 MG (CATAPRES) TAB PO ONE (11:30)
[2019-01-06] MEDS ORDERED: doxAzosin 1 MG (CARDURA) TAB PO SCH (11:45)
[2019-01-06] MEDS ORDERED: METO-351 PO (11:45)
[2019-01-06] MEDS ORDERED: DOXA1TAB2 PO (11:45)
[2019-01-06 13:18] VITALS: BP 162/64
== END 2019-01-06 13:18 | disposition home or self-care (01) ==
LOC: EDUNIT# 09:47 → ER 09:48
DX: R04.0 Epistaxis (principal); R00.1 Bradycardia, unspecified; I48.91 Unspecified atrial fibrillation; I25.10 Atherosclerotic heart disease of native coronary artery without angina pectoris; E78.00 Pure hypercholesterolemia, unspecified; Z87.442 Personal history of urinary calculi; Z95.5 Presence of coronary angioplasty implant and graft; Z79.01 Long term (current) use of anticoagulants; Z79.82 Long term (current) use of aspirin
CPT/HCPCS: 36415; 80053; 83735; 84484; 85025; 93005

== ENCOUNTER 2019-02-18 11:06 | Emergency (ER) | payer MEDICARE, OTHER ==
[~2019-02-18] VITALS: Ht 172.7 cm; Wt 83.9 kg
[~2019-02-18 11:06] MED LIST changes: +DOXA1TAB2 PO; +METO-351 PO
[2019-02-18] MEDS ORDERED: OXYMETAZOLINE (AFRIN) 0.05% NA 15 ML BTL ONE (11:40)
[2019-02-18] MEDS ORDERED: LIDOCAINE/EPI 2% 1:100,00 (XYLOCAINE) 20 ML VIAL ONE (11:44)
[2019-02-18] MEDS ORDERED: L.E.T. SYRINGE 5 ML ONE (11:45)
--- NOTE | 2019-02-18 11:54 | ED EENT ---
History of Present Illness General Chief Complaint: Nasal Problems Stated Complaint: NOSE BLEED Nursing Triage Note: PT STATES NOSE BLEED BEGAN AT 0730 THIS AM. PT HAD A NOSE BLEED YESTERDAY BUT IT STOPPED WITHIN 30 MINUTES. PT HAS HISTORY OF NOSE BLEED 3 WEEKS AGO WITH CAUTERZATION. PT STATES ELQUIST. PT CAME IN WITH NASAL PACKING TO LEFT NARE. Source: patient Exam Limitations: no limitations History of Present Illness Date Seen by Provider: Feb 18, 2019 Time Seen by Provider: 11:53 Initial Comments Left-sided nosebleed since 7:30 this morning. Had it yesterday as well but stopped on its own. He is on Eliquis for atrial fibrillation. Timing/Duration: abrupt Severity: moderate Location: nose Associated Symptoms: denies symptoms Allergies and Home Medications Allergies Coded Allergies: No Known Drug Allergies (Verified , 03/09/18) Home Medications Apixaban 5 Mg Tablet, 5 MG PO DAILY, (Reported) Aspirin 81 Mg Tab.chew, 81 MG PO DAILY Prescribed by: SO MARCIAL on 07/15/18 0901 Atorvastatin Calcium 40 Mg Tablet, 40 MG PO HS, (Reported) Doxazosin Mesylate 1 Mg Tablet, 1 MG PO HS Prescribed by: SHANTEL MCCLURE on 01/06/19 1145 Furosemide 40 Mg Tablet, 40 MG PO DAILY, (Reported) Metoprolol Succinate 50 Mg Tab.er.24h, 50 MG PO DAILY, (Reported) Metoprolol Succinate 25 Mg Tab.er.24h, 25 MG PO DAILY Prescribed by: SHANTEL MCCLURE on 01/06/19 1145 [place]-3/Dha/Epa/Fish Oil 1 Each Capsule.dr, 1 EACH PO DAILY, (Reported) Potassium Chloride 10 Meq Tab.er.prt, 10 MEQ PO DAILY, (Reported) Patient Home Medication List Home Medication List Reviewed: Yes Review of Systems Review of Systems Constitutional: see HPI Eyes: No Symptoms Reported Ears: No Symptoms Reported Nose: see HPI, epistaxis Mouth: no symptoms reported Throat: no symptoms reported Respiratory: no symptoms reported Cardiovascular: no symptoms reported Musculoskeletal: no symptoms reported Past Inzncuh-Fslljj-Jebxau Hx Patient Social History Alcohol Use: Denies Use Number of Drinks Today: AA Alcohol Beverage of Choice: Beer Recreational Drug Use: No Smoking Status: Never a Smoker 2nd Hand Smoke Exposure: No Recent Foreign Travel: No Contact w/Someone Who Travel: No Recent Infectious Disease Expo: No Recent Hopitalizations: No Physical Abuse: No Sexual Abuse: No Fear: No Immunizations Up To Date Tetanus Booster (TDap): Less than 5yrs PED Vaccines UTD: No Seasonal Allergies Seasonal Allergies: No Past Medical History Surgeries: Yes (cardiac stent) Cardiac Respiratory: No Cardiac: Yes (cardiac stent) Atrial Fibrillation, Coronary Artery Disease, High Cholesterol Neurological: No Genitourinary: No Kidney Stones Gastrointestinal: Yes Abdominal Hernia, Hemorrhoids Musculoskeletal: No Endocrine: No HEENT: Yes (NOSE BLEEDS) Loss of Vision: Denies Hearing Impairment: Hearing Aide Right, Hearing Aide Left Cancer: No Psychosocial: No Integumentary: No Blood Disorders: No Adverse Reaction/Blood Tranf: No Family Medical History Completed stroke 21 FATHER G8 BROTHER FH: cancer G8 BROTHER G8 SISTER Physical Exam Vital Signs Vital Signs - First Documented 02/18/19 11:20 Temp 97.6 Pulse 54 Resp 18 B/P (MAP) 161/83 (109) Pulse Ox 99 O2 Delivery Room Air Height, Weight, BMI Height: 5'8.00" Weight: 185lbs. 0.0oz. 83.428507kd; 28.9 BMI Method:Stated General Appearance: WD/WN, no apparent distress Eyes: bilateral eye normal inspection, bilateral eye PERRL, bilateral eye EOMI Ears: bilateral ear auricle normal, bilateral ear canal normal, bilateral ear TM normal Nose: active bleeding (pulsatile stream of blood from anterior left nasal septum) Neck: non-tender, full range of motion Respiratory: no respiratory distress, no accessory muscle use Neurologic/Psychiatric: alert, normal mood/affect, oriented x 3 Skin: normal color, warm/dry Progress/Results/Core Measures Results/Orders My Orders Orders - SHANTEL MCCLURE APRN Let Solution (Let Solution) (02/18/19 12:15) Oxymetazoline 0.05% Nasal [place] (Afrin 0. (02/18/19 21:00) Medications Given in ED Current Medications Medications Dose Ordered Sig/Ivanna Route Start Time Stop Time Status Last Admin Dose Admin Tetracaine/ Epinephrine/ Lidocaine 1 ea ONCE ONCE TOP 02/18/19 12:15 02/18/19 12:16 02/18/19 12:05 1 EA Vital Signs/I&O 02/18/19 11:20 Temp 97.6 Pulse 54 Resp 18 B/P (MAP) 161/83 (109) Pulse Ox 99 O2 Delivery Room Air Blood Pressure Mean: 109 Departure Communication (Admissions) 1212-initially there was pulsatile bleeding from the left anterior septum. Temp to be cauterized with silver nitrate but due to pain patient was poorly tolerant of this. We then soaked 2 Merocel sponges and topical LAT after they were inserted into the left nostril, applied a nose clamp for 20 minutes. We also used a dose of Afrin. After 20 minutes the Merocel was removed, the nose clamp removed, there was no bleeding, I further cauterized the area with silver nitrate which she was more tolerant of now, we will observe for about 20-30 minutes, discharge to home if no recurrent bleeding. Impression Primary Impression: Epistaxis Disposition: 01 HOME, SELF-CARE Condition: Stable Departure-Patient Inst. Decision time for Depature: 12:14 Referrals: GINETTE SMITH MD, RICHARD A DO (PCP/Family) Primary Care Physician Patient Instructions: Nosebleeds (DC) Add. Discharge Instructions: 1. If the nosebleed recurs, squirt 1 or 2 sprays of the nasal spray provided up the nose, sniffing as you're doing it, apply the nose clamp for about 20-30 minutes. If this fails to resolve the bleeding then return to the emergency room. Given that this has been a recurrent issue would be worth your time to follow-up with Dr. Smith from ear nose and throat All discharge instructions reviewed with patient and/or family. Voiced und erstanding. Copy Copies To 1: GINETTE SMITH MD, PETER J APRN Feb 18, 2019 11:54
[2019-02-18] MEDS ORDERED: L.E.T. SYRINGE 5 ML TOP ONE (12:15)
[2019-02-18 12:39] VITALS: BP 159/70
[2019-02-18] MEDS ORDERED: OXYMETAZOLINE (AFRIN) 0.05% NA 15 ML BTL SCH (21:00)
== END 2019-02-18 12:38 | disposition home or self-care (01) ==
LOC: EDUNIT# 11:06 → ER 11:07
DX: R04.0 Epistaxis (principal); I48.91 Unspecified atrial fibrillation; I25.10 Atherosclerotic heart disease of native coronary artery without angina pectoris; E78.00 Pure hypercholesterolemia, unspecified; Z79.01 Long term (current) use of anticoagulants; Z79.82 Long term (current) use of aspirin; Z95.5 Presence of coronary angioplasty implant and graft; Z87.442 Personal history of urinary calculi; Z87.19 Personal history of other diseases of the digestive system
CPT/HCPCS: 99284

== ENCOUNTER → 2019-11-11 | Outpatient (CLI) | payer MEDICARE, OTHER ==
[~2019-11-11] MED LIST changes: -METO-370 PO; -METO-395 PO; +METO50TA7 PO; +MTP100TCR PO
--- NOTE | 2019-11-11 15:45 | Diagnostic Imaging Report ---
INDICATION: Osteoarthritis of the left hip as well as left hip pain. Time of exam 2:37 PM There is complete loss of the superior joint space. There is a sclerosis of the femoral head and acetabulum. There is some osteophyte formation. No fractures are seen. Femoral head and neck are intact. IMPRESSION: Severe osteoarthritic changes of the left hip. No acute bony abnormality is detected. Dictated by: Dictated on workstation # [id number]
== END ==
LOC: MERGE 14:22 → RAD 14:22
DX: M16.12 Unilateral primary osteoarthritis, left hip (principal)
CPT/HCPCS: 73502

== ENCOUNTER → 2019-12-07 | Outpatient (CLI) | payer MEDICARE, OTHER ==
[~2019-12-07] VITALS: Ht 68 cm; Wt 88.0 kg
[~2019-12-07] MED LIST changes: +REGADENOSON 0.4 MG/5 ML SYR (LEXISCAN) IV ONE
[2019-12-07] MEDS: CATHETER FLUSH 10 ML SYR IV PRN ×2 (07:40→09:12)
[2019-12-07 09:11] VITALS: BP 175/115
--- NOTE | 2019-12-07 14:56 | STRESS TEST ---
DATE OF SERVICE: 12/07/2019 RESTING AND POST REGADENOSON TECHNETIUM-99M TETROFOSMIN SPECT CT IMAGING ORDERING PHYSICIAN: Dr. Lynne. PRIMARY PHYSICIAN: Barney Chu DO. CLINICAL DIAGNOSES: Coronary artery disease, hyperlipidemia and chronic kidney disease stage III. Baseline images were carried out after injection of 10.02 mCi of technetium-99m Tetrofosmin. This was followed by 0.4 mg Regadenoson and 29.8 mCi of technetium-99m Tetrofosmin for stress imaging. The electrocardiogram showed atrial fibrillation with a somewhat rapid ventricular response throughout the study. The electrocardiogram did not change significantly with Regadenoson infusion. Review of images at rest and following stress does not indicate any significant perfusion defects consistent with significant myocardial ischemia or infarction. Gated images show well preserved global left ventricular systolic function without distinct regional wall motion abnormalities. Left ventricular ejection fraction is calculated to be 48%. Subjectively, it appears higher than that. Left ventricular end diastolic volume is 31 mL. TID is absent (0.95). CONCLUSIONS: 1. No evidence of significant myocardial ischemia or infarction on this study. 2. Normal regional wall motion. 3. Well preserved global left ventricular systolic function with a calculated ejection fraction of 48%. Subjectively, it appears higher than that. Job ID: [id number] DocumentID: [id number] Dictated Date: 12/07/2019 14:43:02 Program Developer Date: 12/07/2019 14:55:47 Dictated By: RG LYNNE MD, MA, FACP, FACC,
== END ==
LOC: CARD 07:23
PROVIDERS: ATTEND Internal Medicine Cardiovascular Disease
DX: I25.10 Atherosclerotic heart disease of native coronary artery without angina pectoris (principal); E78.5 Hyperlipidemia, unspecified; N18.3 Chronic kidney disease, stage 3 (moderate); Z95.5 Presence of coronary angioplasty implant and graft
CPT/HCPCS: 78452; 93017

== ENCOUNTER → 2019-12-10 | Outpatient (CLI) | payer MEDICARE, OTHER ==
[~2019-12-10] MED LIST changes: -REGADENOSON 0.4 MG/5 ML SYR (LEXISCAN) IV ONE
== END ==
LOC: CARD 08:48
PROVIDERS: ATTEND Internal Medicine Cardiovascular Disease
DX: I08.3 Combined rheumatic disorders of mitral, aortic and tricuspid valves (principal); I25.10 Atherosclerotic heart disease of native coronary artery without angina pectoris; N18.3 Chronic kidney disease, stage 3 (moderate); E78.5 Hyperlipidemia, unspecified; Z95.5 Presence of coronary angioplasty implant and graft
CPT/HCPCS: 93306

== ENCOUNTER → 2020-02-11 | Outpatient (CLI) | payer MEDICARE ==
[2020-02-11 08:38] LABS: BASOPHILS % (AUTO) 1 % (0-10); EOSINOPHILS # (AUTO) 0.2 10^3/uL (0.0-0.3); EOSINOPHILS % (AUTO) 2 % (0-10); HEMATOCRIT 46 % (40-54); HEMOGLOBIN 14.9 G/DL (13.3-17.7); LYMPHOCYTES # (AUTO) 1.7 X 10^3 (1.0-4.0); LYMPHOCYTES % (AUTO) 20 % (12-44); MEAN CORPUSCULAR HEMOGLOBIN 29 PG (25-34); MEAN CORPUSCULAR HGB CONC 33 G/DL (32-36); MEAN CORPUSCULAR VOLUME 89 FL (80-99); MEAN PLATELET VOLUME 10.4 FL (7.4-10.4); MONOCYTES # (AUTO) 0.8 X 10^3 (0.0-1.0); MONOCYTES % (AUTO) 10 % (0-12); NEUTROPHILS # (AUTO) 5.5 X 10^3 (1.8-7.8); NEUTROPHILS % (AUTO) 67 % (42-75); PLATELET COUNT 270 10^3/uL (130-400); RED CELL DISTRIBUTION WIDTH 16.2 % (10.0-14.5); WHITE BLOOD COUNT 8.2 10^3/uL (4.3-11.0)
[2020-02-11 08:48] LABS: ALBUMIN 4.5 GM/DL (3.2-4.5); POTASSIUM 4.2 MMOL/L (3.6-5.0)
[2020-02-11 08:50] LABS: CALCIUM 9.7 MG/DL (8.5-10.1)
[2020-02-11 08:51] LABS: TOTAL PROTEIN 7.6 GM/DL (6.4-8.2)
[2020-02-11 08:53] LABS: BILIRUBIN,TOTAL 0.7 MG/DL (0.1-1.0)
[2020-02-11 08:55] LABS: CREATININE SERUM 1.48 MG/DL (0.60-1.30)
== END ==
LOC: LAB 08:19
PROVIDERS: ATTEND Family Medicine
DX: E03.9 Hypothyroidism, unspecified (principal); D64.9 Anemia, unspecified; R79.89 Other specified abnormal findings of blood chemistry
CPT/HCPCS: 36415; 80053; 84443; 85025

== ENCOUNTER → 2021-02-26 | Outpatient (CLI) | payer MEDICARE, OTHER ==
--- NOTE | 2021-02-26 14:10 | Diagnostic Imaging Report ---
PROCEDURE: CT head without contrast. TECHNIQUE: Multiple contiguous axial images were obtained through the brain without the use of intravenous contrast. Auto Exposure Controls were utilized during the CT exam to meet ALARA standards for radiation dose reduction. INDICATION: Fall off a ladder with laceration. Patient is also on blood thinners. Comparison is made with prior head CT from 09/30/2012. There appear to be scalp deanne in the high posterior parieto-occipital scalp at the midline. Ventricles and sulci are appropriate for the patient's age. No sulcal effacement or midline shift is identified. No acute intra-axial or extra-axial hemorrhage is detected. Cisterns are patent. The visualized paranasal sinuses are clear. IMPRESSION: Scalp laceration. No acute intracranial process is detected. Dictated by: Dictated on workstation # [id number]
--- NOTE | 2021-02-26 14:37 | Diagnostic Imaging Report ---
PROCEDURE: CT pelvis without contrast. TECHNIQUE: Multiple contiguous axial images were obtained through the pelvis without the use of intravenous contrast. Sagittal and coronal reformations were performed. Auto Exposure Controls were utilized during the CT exam to meet ALARA standards for radiation dose reduction. INDICATION: Trauma, pain after fall off of ladder. COMPARISON: None available. FINDINGS: There is an acute simple appearing oblique fracture involving the posterior elements of the S3 and S4 vertebral bodies. The fracture does extend into the right S4 sacral ala, but this fracture is hairline and nondisplaced. No displaced fracture within the pelvis. There is no acute fracture in the proximal femurs. Left total hip arthroplasty is in good alignment and has no surrounding osteolysis. Severe osteoarthritis of the right hip is present. Mild degenerative changes of the SI joints. No free pelvic fluid. Fat-containing umbilical hernia. Sigmoid colon diverticulosis without diverticulitis. IMPRESSION: 1. Acute nondisplaced fracture in the lower sacrum involves the posterior elements of S3 and S4 as well as the lower right sacral ala. 2. No fracture in the proximal femurs. Left total hip arthroplasty is intact. 3. Severe osteoarthritis of the right hip. Dictated by: Dictated on workstation # [id number]
== END ==
LOC: RAD 13:37
PROVIDERS: ATTEND Nurse Practitioner Family
DX: S32.19XA Other fracture of sacrum, initial encounter for closed fracture (principal); S01.01XA Laceration without foreign body of scalp, initial encounter; W11.XXXA Fall on and from ladder, initial encounter; M16.11 Unilateral primary osteoarthritis, right hip; Z96.642 Presence of left artificial hip joint
CPT/HCPCS: 70450; 72192

== ENCOUNTER 2022-03-24 12:11 | Inpatient (IN) | payer MEDICARE, OTHER ==
[~2022-03-24] VITALS: Ht 167.6 cm; Wt 82.0 kg
[~2022-03-24 12:11] MED LIST changes: -POTA10TA36 PO; +POTA10TA37 PO
[2022-03-24 12:36] LABS: BASOPHILS # (AUTO) 0.1 10^3/uL (0.0-0.1); BASOPHILS % (AUTO) 1 % (0-10); EOSINOPHILS # (AUTO) 0.1 10^3/uL (0.0-0.3); EOSINOPHILS % (AUTO) 1 % (0-10); HEMATOCRIT 50 % (40-54); HEMOGLOBIN 16.4 g/dL (13.3-17.7); LYMPHOCYTES # (AUTO) 2.7 10^3/uL (1.0-4.0); LYMPHOCYTES % (AUTO) 30 % (12-44); MEAN CORPUSCULAR HEMOGLOBIN 31 pg (25-34); MEAN CORPUSCULAR HGB CONC 33 g/dL (32-36); MEAN CORPUSCULAR VOLUME 93 fL (80-99); MEAN PLATELET VOLUME 11.3 fL (9.0-12.2); MONOCYTES # (AUTO) 0.8 10^3/uL (0.0-1.0); MONOCYTES % (AUTO) 9 % (0-12); NEUTROPHILS # (AUTO) 5.3 10^3/uL (1.8-7.8); NEUTROPHILS % (AUTO) 59 % (42-75); PLATELET COUNT 169 10^3/uL (130-400); WHITE BLOOD COUNT 9.1 10^3/uL (4.3-11.0)
[2022-03-24 12:45] LABS: ALBUMIN 4.2 GM/DL (3.2-4.5)
[2022-03-24 12:46] LABS: POTASSIUM 3.7 MMOL/L (3.6-5.0)
[2022-03-24 12:47] LABS: CALCIUM 9.4 MG/DL (8.5-10.1)
[2022-03-24 12:48] LABS: PROTHROMBIN TIME PATIENT 13.1 SEC (12.2-14.7)
[2022-03-24 12:50] LABS: BILIRUBIN,TOTAL 0.6 MG/DL (0.1-1.0)
[2022-03-24 12:52] LABS: CREATININE SERUM 1.74 MG/DL (0.60-1.30)
[2022-03-24 12:55] LABS: MAGNESIUM 2.1 MG/DL (1.6-2.4)
--- NOTE | 2022-03-24 13:32 | Diagnostic Imaging Report ---
PROCEDURE: CT head and CT cervical spine without contrast. TECHNIQUE: Multiple contiguous axial images were obtained through the brain and cervical spine without the use of intravenous contrast. Sagittal and coronal reformations through the cervical spine were then performed. Auto Exposure Controls were utilized during the CT exam to meet ALARA standards for radiation dose reduction. INDICATION: Syncope. Head injury and pain. COMPARISON: CT head without contrast 02/26/2021. FINDINGS: CT HEAD: Moderate to advanced generalized parenchymal volume loss. Moderate leukoaraiosis. Intracranial vascular calcifications. No CT evidence of a territorial infarction. No intracranial hemorrhage, mass effect, hydrocephalus or extra-axial fluid collections. Mucosal thickening in the maxillary sinuses. The mastoids are clear. Chronic nasal bone fractures. No acute osseous findings. CT CERVICAL SPINE: Grade 1 anterolisthesis of C4 on C5 and retrolisthesis of C5 on C6. Vertebral body heights are preserved. No fractures. Spondylotic changes are greatest at C5-C6 where they are advanced. Moderate atherosclerotic calcifications. Lung apices are clear. IMPRESSION: No acute intracranial or cervical spine CT findings. Chronic findings, as above. Dictated by: Dictated on workstation # [id number]
--- NOTE | 2022-03-24 13:50 | Diagnostic Imaging Report ---
HISTORY: Chest pain COMPARISON: 03/10/2018 TECHNIQUE: Frontal view of the chest FINDINGS: The lung volumes are low. There are mild interstitial opacities in the lungs. These appear overall improved compared to 2018. There is no pleural effusion or pneumothorax. The cardiac silhouette is stable in size. IMPRESSION: 1. Bilateral interstitial opacities, may represent mild edema. Aeration overall appears improved compared to 2018. Dictated by: Dictated on workstation # [id number]
--- NOTE | 2022-03-24 14:57 | Diagnostic Imaging Report ---
PROCEDURE: CT chest without contrast. TECHNIQUE: Multiple contiguous axial images were obtained through the chest without the use of intravenous contrast. Auto Exposure Controls were utilized during the CT exam to meet ALARA standards for radiation dose reduction. INDICATION: Sternal pain after CPR. COMPARISON: 03/10/2018: FINDINGS: The heart is normal in size. There is no pericardial effusion. There is calcific atherosclerosis. The aorta appears normal in caliber. There is no retrosternal edema or fluid collection. There are calcified lymph nodes from old granulomatous disease. There is dependent atelectasis in the lungs. No mass or consolidation is seen. No central endobronchial lesions are identified. There is no pleural effusion or pneumothorax. There are old rib fractures, bilaterally. There appear to be nondisplaced fractures of the anterior left 5th and 6th ribs. There are degenerative changes throughout the spine. Imaged portions of the upper abdomen demonstrate multiple large cysts in the right kidney. The largest measures up to 7.3 cm. IMPRESSION: Nondisplaced fractures of the anterior left 5th and 6th ribs. Dictated by: Dictated on workstation # [id number]
[2022-03-24] MEDS ORDERED: ENOXAPARIN 80 MG/0.8 ML (LOVENOX) SYR SC ONE (16:45)
[2022-03-24] MEDS ORDERED: ASPIRIN 81 MG CHEW (CHILDREN'S ASA) PO ONE (16:45)
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
[2022-03-24] MEDS ORDERED: BISACODYL 10 MG SUPP (DULCOLAX) PR PRN (18:30)
[2022-03-24] MEDS ORDERED: CALCIUM CARBONATE 500 MG (TUMS) TAB.CHEW PO PRN (18:30)
[2022-03-24] MEDS ORDERED: LACTULOSE SYRUP 10GM/15ML (ENULOSE) 30ML UDC PO PRN (18:30)
[2022-03-24] MEDS ORDERED: ANTACID SUSP 30 ML UDC (MYLANTA) PO PRN (18:30)
[2022-03-24] MEDS ORDERED: polyethylene glycoL POWDER 17 GM (MIRALAX) PACK PO PRN (18:30)
[2022-03-24] MEDS ORDERED: MILK OF MAGNESIA 400 MG/5 ML 30 ML UDC PO PRN (18:30)
[2022-03-24] MEDS ORDERED: ONDANSETRON 4 MG (ZOFRAN) ORAL DISSOLVE TAB PO PRN (18:30)
[2022-03-24] MEDS ORDERED: ONDANSETRON 4 MG/2 ML (SDV) Z0FRAN IV PRN (18:30)
[2022-03-24] MEDS ORDERED: MTP100TCR PO (18:52)
[2022-03-24] MEDS ORDERED: PANT40TA2 PO (18:52)
[2022-03-24] MEDS ORDERED: APIX5TAB PO (18:52)
--- NOTE | 2022-03-24 19:53 | Tele-ICU Progress Note ---
Progress Note 86 y/o with Hx of CAD, had syncope and collapsed at home. CPR done by family. Up on EMS arrival Pt was alert and talking. Apparently Pt was under a lot od stress and sad as his is in dying stage. Vitals stable , On RA. Sats 98%. Labs WNL, Troponin 1.0 -->2.5 ASA, Lovenox [address] chest Lt 5th and 6th rib Fx. Trending Trop and serial EKGs Interventions Minor-Other: Syncope, NSTEMI Focused Exam Height, Weight, BMI Height: 5'8.00" Weight: 185lbs. 0.0oz. 83.539152vr; 29.01 BMI Method:Stated MARIO ROSALES MD Mar 24, 2022 19:53
[2022-03-24] MEDS: DOCUSATE SODIUM 100 MG (COLACE) CAP PO SCH (20:39)
[2022-03-24] MEDS: ACETAMINOPHEN 325 MG TABLET PO PRN (20:39)
[2022-03-24] MEDS: MELATONIN 3 MG TABLET PO PRN (20:39)
[2022-03-24] MEDS ORDERED: ENOXAPARIN 80 MG/0.8 ML (LOVENOX) SYR SC SCH (21:00)
[2022-03-24] MEDS: morphine INJ 4 MG/ML 1 ML (VIAL/SYRINGE) IVP PRN (21:19)
--- NOTE | 2022-03-24 21:50 | History & Physical-Hospitalist ---
History of Present Illness HPI/Chief Complaint Minh Aranda is an 86 year old male with PMH HTN, HLD, CAD, AFib, who presented after an episode of syncope. He was with his family at his house when he passed out. He was reportedly pulseless and they began CPR. When EMS arrived he was found to have a pulse. He denies any prodromal symptoms. He was not feeling lightheaded or dizzy. He did not have any chest pain or palpitations. He was not short of breath. He denies nausea and vomiting. He denies diaphoresis. His was recently put on hospice and they just returned home. This has obviously been causing a lot of stress and anxiety. He reports having some chest/throat burning more frequently this week that he thought was heartburn. Source: patient Exam Limitations: no limitations Date Seen 03/24/22 Time Seen by a Provider: 19:30 Attending Physician Barney Chu DO PCP Admitting Physician: Quinton Burris MD Attending Physician: Quinton Burris MD Referring Physician Date of Admission Mar 24, 2022 at 17:28 Home Medications & Allergies Home Medications Reviewed patient Home Medication Reconciliation performed by pharmacy medication reconciliations instructional support technician and/or nursing. Patients Allergies have been reviewed. Allergies Allergies Coded Allergies No Known Drug Allergies (Verified03/09/18) Past Iabbiby-Lphdjb-Uwvtkd Hx Patient Social History Tobacco Use?: No Use of E-Cig and/or Vaping dev: No Substance use?: No Alcohol Use?: Yes Alcohol type: Beer Alcohol Frequency: Several times a month Pt feels they are or have been: No Immunizations Up To Date First/Initial COVID19 Vaccinat: 2020 Second COVID19 Vaccination Corey: 2020 Tetanus Booster (TDap): Less Than 5 Years Hepatitis A: No Hepatitis B: No PED Vaccines UTD: No Seasonal Allergies Seasonal Allergies: No Current Status Advance Directives: No Communicates: Verbally Primary Language: Syriac Preferred Spoken Language: Syriac Is interpretation needed?: No Implanted or Applied Medical D: Stents Past Medical History Surgeries: Cardiac, Coronary Stent Atrial Fibrillation, Coronary Artery Disease, High Cholesterol, Hypertension Kidney Stones Abdominal Hernia, Hemorrhoids Loss of Vision: Denies Hearing Impairment: Hearing Aide Right, Hearing Aide Left Blood Disorders: No Adverse Reaction/Blood Tranf: No Family Medical History Completed stroke 19 FATHER G8 BROTHER FH: cancer G8 BROTHER G8 SISTER Review of Systems Constitutional: no symptoms reported EENTM: no symptoms reported Respiratory: no symptoms reported Cardiovascular: chest pain Gastrointestinal: no symptoms reported Genitourinary: no symptoms reported Musculoskeletal: no symptoms reported Skin: no symptoms reported Psychiatric/Neurological: No Symptoms Reported Physical Exam Physical Exam Vital Signs Vital Signs - First Documented 03/24/22 03/24/22 12:15 19:00 Temp 35.7 Pulse 70 Resp 22 B/P (MAP) 151/95 (113) Pulse Ox 98 O2 Delivery Room Air Capillary Refill : Less Than 3 Seconds Height, Weight, BMI Height: 5'8.00" Weight: 185lbs. 0.0oz. 83.698397gu; 29.01 BMI Method:Stated General Appearance: No Apparent Distress, Obese HEENT: PERRL/EOMI, Pharynx Normal Neck: Normal Inspection, Supple Respiratory: No Chest Non Tender; Lungs Clear, No Respiratory Distress, Other (tenderness overlying sternum) Cardiovascular: Regular Rate, Rhythm, No Murmur Gastrointestinal: Normal Bowel Sounds, Non Tender, Soft Extremity: Non Tender, Inflammation (left koenig), Swelling Neurologic/Psychiatric: Alert, Normal Mood/Affect Results Results/Procedures Labs Laboratory Tests 03/24/22 12:26 Patient resulted labs reviewed. Imaging: Reviewed Imaging Films, Reviewed Imaging Report Assessment/Plan Admission Diagnosis Cardiac arrest Admission Status: Inpatient Order (span 2 midnights) Reason for Inpatient Admission: NSTEMI Assessment and Plan Cardiac arrest NSTEMI CAD Rib fractures CXR with mild pulmonary edema CT with rib fractures Troponin significantly elevated, repeat trending up EKG with no ST elevation or depressioni Cardiology consulted, Dr. Lynne Aspirin [facility] TeleIC consulted HTN HLD AFib GERD Critical Care Critically Ill Patient Diagnosis/Problems Diagnosis/Problems (1) Cardiac arrest Status: Acute (2) NSTEMI (non-ST elevation myocardial infarction) Status: Acute (3) CAD (coronary artery disease) Status: Acute (4) Rib fractures Status: Acute Qualifiers: Encounter type: initial encounter Fracture type: closed Laterality: left Qualified Codes: S22.42XA - Multiple fractures of ribs, left side, initial encounter for closed fracture Clinical Quality Measures AMI/AHF: ASA po Prior to arrival: QUINTON Velarde MD Mar 24, 2022 21:50
[2022-03-24] MEDS ORDERED: NS IV 1000 ML 1,000 ML IV SCH (22:00)
[2022-03-24] MEDS: RT-ALBUTEROL SULF 2.5 MG/3 ML PRE-MIX VIAL INH SCH (22:46)
[2022-03-25] MEDS: HYDROcodone/APAP 7.5 MG/325 MG (LORTAB, LORCET PLUS) TABLET PO PRN (04:02)
--- NOTE | 2022-03-25 06:12 | CONSULTATION REPORT ---
DATE OF SERVICE: ATTENDING PRIMARY CARE PHYSICIAN: Dr. Barney Chu. ADMITTING PHYSICIAN: Dr. Burris. HISTORY OF PRESENT ILLNESS: The patient is an 86-year-old male with a known history of coronary artery disease. He got up from a table with his family and they witnessed him collapse. They evaluated him and states that the patient was not breathing and he was pulseless and they initiated CPR. The [facility] Department arrived and the patient was found to be spontaneously breathing and did have a pulse. At that time, he was nonresponsive. By the time EMS had arrived, he was responsive and talking. Upon presentation to the Emergency Department, he did have a chest pain, which was reproducible with palpation. EKG did not demonstrate any ST segment elevation; however, he did have an elevated troponin. A CT scan as well as x-rays were performed of the chest, which showed nondisplaced anterior fractures of the left fifth and sixth rib. No other abnormalities detected. The patient will be admitted and cardiology consulted. PAST MEDICAL HISTORY: Coronary artery disease, congestive heart failure, hypercholesterolemia, hypertension, atrial fibrillation, history of nephrolithiasis, gastroesophageal reflux disease, hemorrhoids, hearing loss. PAST SURGICAL HISTORY: Cardiac catheterization and stent placement, abdominal hernia repair. ALLERGIES: No known drug allergies. MEDICATIONS: Apixaban 5 mg daily, aspirin 81 mg daily, atorvastatin 40 mg daily, doxazosin 1 mg daily, furosemide 40 mg daily, metoprolol 75 mg daily, potassium 10 mEq daily. SOCIAL HISTORY: Negative smoke, negative alcohol. FAMILY HISTORY: Father and brother, stroke. Brother and sister with some form of malignancy. PHYSICAL EXAMINATION: VITAL SIGNS: Temperature 35.7, blood pressure 118/77, pulse 56, respirations 18, pulse ox 95% on 2 liters nasal cannula. REVIEW OF SYSTEMS: This is a well-nourished male currently in no acute distress. He is not experiencing any shortness of breath or difficulty breathing. No cough or sputum production. He does have reproducible chest pain with radiation towards the back. No nausea, vomiting, no diarrhea or constipation. No fever, chills, no recent inadvertent weight loss. All other review of systems negative. PHYSICAL EXAMINATION: Will be ascertained upon examination in the a.m. LABORATORY DATA: WBC 9.1, hemoglobin 16.4, hematocrit 50, platelets 169, BUN 23, creatinine 1.74. Troponin 2.5. ASSESSMENT AND PLAN: An 86-year-old male with a possible cardiac arrest at home and underwent CPR with what sounds to be immediate resuscitation of his cardiorespiratory system. Upon arrival, he was awake and alert and did not exhibit any neurologic deficit. He will be admitted and cardiology consulted. Due to the chest compressions, he does have nondisplaced anterior left rib fractures of ribs 5 and 6. We will recommend adequate pain control as well as incentive spirometer and breathing treatments as well as early ambulation to prevent splinting, atelectasis as well as the development of pneumonia. Job ID: [id number] DocumentID: [id number] Dictated Date: 03/24/2022 21:26:35 Watch Technician Date: 03/24/2022 23:46:45 Dictated By: CONCHA OLIVER MD
[2022-03-25] MEDS: SENNOSIDES 8.6 MG (SENOKOT) TAB PO SCH ×2 (06:23→07:57)
[2022-03-25] MEDS: RT-ALBUTEROL SULF 2.5 MG/3 ML PRE-MIX VIAL INH SCH ×3 (06:46→22:50)
[2022-03-25] MEDS: DOCUSATE SODIUM 100 MG (COLACE) CAP PO SCH (07:56)
--- NOTE | 2022-03-25 08:05 | Consultation-Cardiology ---
HPI-Cardiology Cardiology Consultation: Date of Consultation 03/25/22 Time Seen by a Provider: 08:50 Date of Admission 03-24-22 Attending Physician Barney Chu DO Admitting Physician Admitting Physician: Kaley Burris MD Attending Physician: Kaley Burris MD Consulting Physician Maynor Lynne MD HPI: Chief Complaint: Syncope and collapse Post chest compressions Mr. Akins is an 86 yr old male admitted to ICU 7 from the ED post syncope and collapse. He reports he remembers getting up from the kitchen table and the next thing he recalls he was waking up on the floor. He reports his daughter in law was home at the time. There is no family present at the bedside. ED reports he collapsed at home and his daughter in law did chest compressions after finding him pulseless and not breathing. By the time EMS arrived he was awake and responsive. He reports increased stress at home d/t his being up in critically ill. (She is now home with Hospice) He reports he was in for 3 days and did not have his medications with him. He states he did take them yesterday. He reports he has been having frequent heartburn for which he has been taking TUMS frequently. He denies any c/o CP, palpitations, SOB, dizziness or diaphoresis prior to yesterdays event. He reports he is having chest pain, left sided localized which is reproducible with palpation. No c/o LE swelling. No c/o fever or chills. No c/o n/v/d. Review of Systems-Cardiology Review of Systems Constitutional: No chills, No fever, No lightheadedness, No malaise Eyes: No vision change Ears/Nose/Throat: No epistaxis, No recent hearing loss Respiratory: As described under HPI Cardiovascular: As described under HPI Gastrointestinal: As described under HPI Genitourinary: No dysuria, No hematuria Skin: No rash on exposed areas, No ulcerations on exposed areas Psychiatric/Neurological: As described under HPI; No seizure, No focal weakness Hematologic: No bleeding abnormalities [id number]-Xpkiam Hx Patient Social History 2nd Hand Smoke Exposure: No Have you traveled recently?: No Alcohol Use?: Yes Pt feels they are or have been: No Immunizations Up To Date Tetanus Booster (TDap): Less than 5yrs Past Medical History PMH As described under Assessment. Family Medical History Family Medical History: He does not report fam h/o early CAD or SCD Family History: Completed stroke 21 FATHER G8 BROTHER FH: cancer G8 BROTHER G8 SISTER Allergies and Home Medications Allergies Coded Allergies: No Known Drug Allergies (Verified , 03/09/18) Patient Home Medication List Acetaminophen (Tylenol Extra Strength) 500 Mg Tablet, 500-1,000 MG PO Q8H PRN for PAIN-MILD (1-4), (Reported) Entered as Reported by: ARNULFO LONDON on 03/25/221340 Last Action: Reviewed Apixaban (Eliquis) 5 Mg Tablet, 5 MG PO BID, (Reported) Entered as Reported by: АННА HERNANDEZ on 03/24/221851 Last Action: Reviewed Calcium Carbonate (Tums) 200 Mg Calcium (500 Mg) Tab.chew, 200-400 MG PO Q6H PRN for INDIGESTION, (Reported) Entered as Reported by: ARNULFO LONDON on 03/25/221340 Last Action: Reviewed Furosemide (Furosemide) 40 Mg Tablet, 40 MG PO DAILY, (Reported) Entered as Reported by: NADINE CHE on 07/14/18731 Last Action: Reviewed Metoprolol Succinate (Metoprolol Succinate) 100 Mg Tab.er.24h, 100 MG PO DAILY, (Reported) Entered as Reported by: АННА HERNANDEZ on 03/24/221851 Last Action: Reviewed [place]-3/Dha/Epa/Fish Oil (Fish Oil EC 1,200 mg Softgel) 1 Each Capsule.dr, 1 EACH PO DAILY, (Reported) Entered as Reported by: NADINE CHE on 07/14/18731 Last Action: Reviewed Pantoprazole Sodium (Pantoprazole Sodium) 40 Mg Tablet.dr, 40 MG PO HS, (Reported) Entered as Reported by: ARNULFO LONDON on 03/25/221340 Last Action: Reviewed Potassium Chloride (Potassium Chloride) 10 Meq Capsule.er, 10 MEQ PO HS, (Reported) Entered as Reported by: ARNULFO LONDON on 03/25/221340 Last Action: Reviewed Discontinued Medications Apixaban (Eliquis) 5 Mg Tablet, 5 MG PO DAILY, (Reported) Discontinued Reason: No Longer Taking Entered as Reported by: YOSVANY OLSON on 03/10/18 0958 Last Action: Discontinued Aspirin (Aspirin) 81 Mg Tab.chew, 81 MG PO DAILY Discontinued Reason: No Longer Taking Prescribed by: SO MARCIAL on 07/15/18 0901 Last Action: Discontinued Atorvastatin Calcium (Atorvastatin Calcium) 40 Mg Tablet, 40 MG PO HS, (Reported) Discontinued Reason: No Longer Taking Entered as Reported by: YEIMI CASTANON on 02/11/17 1636 Last Action: Discontinued Doxazosin Mesylate (Doxazosin Mesylate) 1 Mg Tablet, 1 MG PO HS Discontinued Reason: No Longer Taking Prescribed by: SHANTEL MCCLURE on 01/06/19 1145 Last Action: Discontinued Metoprolol Succinate (Metoprolol Succinate) 50 Mg Tab.er.24h, 50 MG PO DAILY, (Reported) Discontinued Reason: No Longer Taking Entered as Reported by: NADINE CHE on 07/14/18 0732 Last Action: Discontinued Metoprolol Succinate (Toprol Xl) 25 Mg Tab.er.24h, 25 MG PO DAILY Discontinued Reason: No Longer Taking Prescribed by: SHANTEL MCCLURE on 01/06/19 1145 Last Action: Discontinued Pantoprazole Sodium (Protonix) 40 Mg Tablet.dr, 40 MG PO DAILY, (Reported) Discontinued Reason: Duplicate Order Entered as Reported by: АННА HERNANDEZ on 03/24/22 1852 Last Action: Discontinued Potassium Chloride (Potassium Chloride) 10 Meq Tab.er.prt, 10 MEQ PO DAILY, (Reported) Discontinued Reason: Duplicate Order Entered as Reported by: NADINE CHE on 07/14/18 0732 Last Action: Discontinued Physical Exam-Cardiology Physical Exam Vital Signs/I&O 03/25/22 03/25/22 03/26/22 03/26/22 23:00 23:00 00:00 00:06 Pulse 110 97 114 Resp 26 28 13 B/P (MAP) 143/99 135/100 141/97 Pulse Ox 98 98 96 O2 Delivery Room Air Room Air Room Air Room Air 03/26/22 03/26/22 03/26/22 03/26/22 01:00 01:00 02:00 03:00 Pulse 112 112 112 81 Resp 18 13 14 B/P (MAP) 145/96 142/106 139/96 Pulse Ox 97 97 98 O2 Delivery Room Air Room Air Room Air 03/26/22 03/26/22 03/26/22 7/12/22 04:00 04:00 05:30 06:00 Pulse 112 81 64 Resp 15 16 18 B/P (MAP) 129/103 120/88 123/94 Pulse Ox 100 100 100 O2 Delivery Room Air Room Air Room Air Room Air 03/26/22 03/26/22 03/26/22 03/26/22 07:00 07:00 08:00 08:00 Temp 36.4 Pulse 70 70 Resp 14 B/P (MAP) 137/88 Pulse Ox 100 O2 Delivery Room Air Room Air 03/26/22 03/26/22 03/26/22 03/26/22 08:00 08:06 08:10 09:00 Pulse 75 114 Resp 14 17 B/P (MAP) 130/73 150/102 Pulse Ox 100 100 97 99 O2 Delivery Room Air Nasal Cannula Room Air Room Air O2 Flow Rate 2.00 03/26/22 00:00 Intake Total 1240 ml Output Total 350 ml Balance 890 ml Capillary Refill : Less Than 3 Seconds Constitutional: AAO x 3, well-developed, well-nourished HEENT: PERRL, hearing is well preserved, oral hygience is good Neck: No carotid bruit; carotid pulses are 2 + bilaterally Respiratory: No accessory muscle use, No respiratory distress; chest expansion is symmetric, chest is bilaterally symmetric, lungs clear to auscultation Cardiovascular: irregularly irregular; No JVD; S1 and S2 Gastrointestinal: No tender; soft, round, audible bowel sounds Extremities: no lower extremity edema bilateral Neurologic/Psychiatric: grossly intact (moves all extremities) Skin: No rash on exposed areas; other (abrasion to left koenig with scabbing, no redness or swelling noted) Data Review Labs Laboratory Tests 03/25/22 12:00: White Blood Count 9.4, Red Blood Count 5.13, Hemoglobin 15.9, Hematocrit 48, Mean Corpuscular Volume 94, Mean Corpuscular Hemoglobin 31, Mean Corpuscular Hemoglobin Concent 33, Red Cell Distribution Width 14.7H, Platelet Count 164, Mean Platelet Volume 11.4, Sodium Level 140, Potassium Level 3.7, Chloride Level 103, Carbon Dioxide Level 24, Anion Gap 13, Blood Urea Nitrogen 18, Creatinine 1.29, Estimat Glomerular Filtration Rate 55, BUN/Creatinine Ratio 14, Glucose Level 152H, Calcium Level 8.8, Corrected Calcium 8.9, Total Bilirubin 1.0, Aspartate Amino Transf (AST/SGOT) 42H, Alanine Aminotransferase (ALT/SGPT) 45, Alkaline Phosphatase 65, Total Protein 6.5, Albumin 3.9, Triglycerides Level 287H, Cholesterol Level 254H, LDL Cholesterol Direct 163H, VLDL Cholesterol 57H, HDL Cholesterol 49 03/26/22 04:38: Sodium Level 137, Potassium Level 3.8, Chloride Level 105, Carbon Dioxide Level 21, Anion Gap 11, Blood Urea Nitrogen 16, Creatinine 1.10, Estimat Glomerular Filtration Rate 66, BUN/Creatinine Ratio 15, Glucose Level 113H, Calcium Level 8.5, Corrected Calcium 8.7, Total Bilirubin 0.9, Aspartate Amino Transf (AST/SGOT) 30, Alanine Aminotransferase (ALT/SGPT) 33, Alkaline Phosphatase 69, Total Protein 6.2L, Albumin 3.7, Magnesium Level 2.0 03/26/22 04:58: White Blood Count 9.2, Red Blood Count 4.83, Hemoglobin 14.8, Hematocrit 46, Mean Corpuscular Volume 94, Mean Corpuscular Hemoglobin 31, Mean Corpuscular Hemoglobin Concent 33, Red Cell Distribution Width 14.9H, Platelet Count 146, Mean Platelet Volume 11.7, Immature Granulocyte % (Auto) 1, Neutrophils (%) (Auto) 74, Lymphocytes (%) (Auto) 16, Monocytes (%) (Auto) 9, Eosinophils (%) (Auto) 1, Basophils (%) (Auto) 0, Neutrophils # (Auto) 6.8, Lymphocytes # (Auto) 1.4, Monocytes # (Auto) 0.8, Eosinophils # (Auto) 0.1, Basophils # (Auto) 0.0, Immature Granulocyte # (Auto) 0.1 Microbiology 03/24/22 MRSA Screen - Final, Complete MRSA not isolated Radiology NAME: FOREIGN AKINS [facility] REC#: [id number] PT STATUS: REG ER : 1935 PHYSICIAN: CAROLINA PAIGE MD ADMIT DATE: 03/24/22/ER Signed Date of Exam:03/24/22 CHEST 1 VIEW, AP/PA ONLY HISTORY: Chest pain COMPARISON: 03/10/2018 TECHNIQUE: Frontal view of the chest FINDINGS: The lung volumes are low. There are mild interstitial opacities in the lungs. These appear overall improved compared to 2018. There is no pleural effusion or pneumothorax. The cardiac silhouette is stable in size. IMPRESSION: 1. Bilateral interstitial opacities, may represent mild edema. Aeration overall appears improved compared to 2018. Dictated by: Dictated on workstation # [id number] Dict: 03/24/22 1345 Trans: 03/24/221713 [facility] [id number] Interpreted by: NATHALIA WATERS MD Electronically signed by: NATHALIA WATERS MD 03/24/224 NAME: FOREIGN AKINS [facility] REC#: [id number] PT STATUS: REG ER : 1935 PHYSICIAN: CAROLINA PAIGE MD ADMIT DATE: 03/24/22/ER Signed Date of Exam:03/24/22 CT HEAD/CERVICAL SPINE WO PROCEDURE: CT head and CT cervical spine without contrast. TECHNIQUE: Multiple contiguous axial images were obtained through the brain and cervical spine without the use of intravenous contrast. Sagittal and coronal reformations through the cervical spine were then performed. Auto Exposure Controls were utilized during the CT exam to meet ALARA standards for radiation dose reduction. INDICATION: Syncope. Head injury and pain. COMPARISON: CT head without contrast 02/26/2021. FINDINGS: CT HEAD: Moderate to advanced generalized parenchymal volume loss. Moderate leukoaraiosis. Intracranial vascular calcifications. No CT evidence of a territorial infarction. No intracranial hemorrhage, mass effect, hydrocephalus or extra-axial fluid collections. Mucosal thickening in the maxillary sinuses. The mastoids are clear. Chronic nasal bone fractures. No acute osseous findings. CT CERVICAL SPINE: Grade 1 anterolisthesis of C4 on C5 and retrolisthesis of C5 on C6. Vertebral body heights are preserved. No fractures. Spondylotic changes are greatest at C5-C6 where they are advanced. Moderate atherosclerotic calcifications. Lung apices are clear. IMPRESSION: No acute intracranial or cervical spine CT findings. Chronic findings, as above. Dictated by: Dictated on workstation # [id number] Dict: 03/24/22 1323 Trans: 03/24/22 173 [facility] [id number] Interpreted by: THERESA GRANADOS MD Electronically signed by: THERESA GRANADOS MD 03/24/22 1736NAME: FOREIGN AKINS [facility] REC#: [id number] PT STATUS: REG ER : 1935 PHYSICIAN: ALYX PELLETIER ADMIT DATE: 03/24/22/ER Signed Date of Exam:03/24/22 CT CHEST WO PROCEDURE: CT chest without contrast. TECHNIQUE: Multiple contiguous axial images were obtained through the chest without the use of intravenous contrast. Auto Exposure Controls were utilized during the CT exam to meet ALARA standards for radiation dose reduction. INDICATION: Sternal pain after CPR. COMPARISON: 03/10/2018: FINDINGS: The heart is normal in size. There is no pericardial effusion. There is calcific atherosclerosis. The aorta appears normal in caliber. There is no retrosternal edema or fluid collection. There are calcified lymph nodes from old granulomatous disease. There is dependent atelectasis in the lungs. No mass or consolidation is seen. No central endobronchial lesions are identified. There is no pleural effusion or pneumothorax. There are old rib fractures, bilaterally. There appear to be nondisplaced fractures of the anterior left 5th and 6th ribs. There are degenerative changes throughout the spine. Imaged portions of the upper abdomen demonstrate multiple large cysts in the right kidney. The largest measures up to 7.3 cm. IMPRESSION: Nondisplaced fractures of the anterior left 5th and 6th ribs. Dictated by: Dictated on workstation # [id number] Dict: 03/24/22 1450 Trans: 03/24/22 1714 [facility] [id number] Interpreted by: NATHALIA WATERS MD Electronically signed by: NATHALIA WATERS MD 03/24/22 1714 ECG Impression ECG Initial ECG Impression: Atrial Fibrillation A/P-Cardiology Assessment/Admission Diagnosis NSTEMI Syncope and collapse (reported pulseless per family) - Post chest compressions Elevated liver enzymes of undetermined etiology Rib fractures - post chest compressions PAF, now appears to be permanent, with a controlled ventricular response at this time - OAC with Eliquis - Mild hyperthyroidism suggested on lab work of 01/21/20: TSH 0.42 (range 0.465 - 4.68); ESR 43 (range 0 - 14) CAD - Cardiac cath of 07-14-18: 90% [id number] vessel stenosis of the left anterior descending artery within a small caliber vessel to which balloon angioplasty was carried out which reduced the stenosis to less than 50%. The rest of the coronary vessels have moderate diffuse disease. There is a patent stent in the right coronary with a 50% in-stent restenosis (unchanged compared to previous study). Elevated left ventricular end-diastolic pressure. - MPI of 12/07/19: no ischemia or infarction, LVEF 48% (appeared to be higher, subjectively) Chronic reynolds CHF - clinically compensated - Echo of 12/10/19: LVEF 60-65%, mild to mod LA and RA dilatation, mild MAC, mild AoV sclerosis w/o stenosis, mild MR, RVSP24 mmHg Hyperlipidemia. - statin tx - followed by PCP History of intermittent noncompliance of medications Umbilical hernia Suspected ANANT Lumbar spondylosis and spinal stenosis - being followed by Dr Mahan ([place], [place]) Discussion and Recomendations NSTEMI - post arrest (chest compressions per family with return of pulse) Advise cardiac cath to eval coronary status, this has been discussed with him. He wishes to talk it over with Dr. Lynne. is home with Hospice care. Echocardiogram done today Advise Plavix, ASA and OAC Advise BB tx and statin Monitor lab closely Further recs will be based on his hospital course Replace electrolytes Rib fractures post chest compressions - management per medical services We would like to thank medical services for this consult Clinical Quality Measures AMI/AHF: ASA po Prior to arrival: SO Veliz Mar 25, 2022 08:05
[2022-03-25] MEDS: ASPIRIN 81 MG CHEW (CHILDREN'S ASA) PO SCH (09:07)
--- NOTE | 2022-03-25 09:17 | Progress Note - Hospitalist ---
Subjective HPI/CC On Admission Date Seen by Provider: Mar 25, 2022 Minh Aranda is an 86 year old male with PMH HTN, HLD, CAD, AFib, who presented after an episode of syncope. He was with his family at his house when he passed out. He was reportedly pulseless and they began CPR. When EMS arrived he was found to have a pulse. He denies any prodromal symptoms. He was not feeling lightheaded or dizzy. He did not have any chest pain or palpitations. He was not short of breath. He denies nausea and vomiting. He denies diaphoresis. His was recently put on hospice and they just returned home. This has obviously been causing a lot of stress and anxiety. He reports having some chest/throat burning more frequently this week that he thought was heartburn. Subjective/Events-last exam Pt reports doing well. No complaints other than chest/rib pain from compressions last night. Objective Exam Vital Signs Vital Signs Date Time Temp Pulse Resp B/P (MAP) Pulse Ox O2 Delivery O2 Flow Rate FiO2 03/25/22 07:00 36.3 03/25/22 07:00 74 03/25/22 06:46 98 Room Air 03/25/22 06:00 16 139/82 Capillary Refill : Less Than 3 Seconds General Appearance: No Apparent Distress, Chronically ill Respiratory: Lungs Clear, No Respiratory Distress Cardiovascular: Regular Rate, Rhythm, No Murmur Neurologic/Psychiatric: Alert, Oriented x3, Normal Mood/Affect Results/Procedures Lab Laboratory Tests 03/24/22 12:26 Patient resulted labs reviewed. Imaging: Reviewed Imaging Films, Reviewed Imaging Report Assessment/Plan Assessment and Plan Assess & Plan/Chief Complaint Cardiac arrest NSTEMI CAD Rib fractures CXR with mild pulmonary edema CT with rib fractures Troponin significantly elevated, repeat trended up EKG with no ST elevation or depression Cardiology consulted, Dr. Lynne Discussed with his CAREER DEVELOPMENT COORDINATOR Cheryl- likely planning for cath Aspirin Lovenox TeleICU consulted HTN HLD AFib GERD Continue home med as able Critical Care Critically Ill Patient Diagnosis/Problems Diagnosis/Problems (1) Cardiac arrest Status: Acute (2) CAD (coronary artery disease) Status: Acute (3) NSTEMI (non-ST elevation myocardial infarction) Status: Acute (4) Elevated troponin Status: Acute (5) Rib fractures Status: Acute Qualifiers: Encounter type: initial encounter Fracture type: closed Laterality: left Qualified Codes: S22.42XA - Multiple fractures of ribs, left side, initial encounter for closed fracture (6) Chronic a-fib (7) CHF (congestive heart failure) Clinical Quality Measures AMI/AHF: ASA po Prior to arrival: MAKAYLA Solitario MD Mar 25, 2022 09:17
--- NOTE | 2022-03-25 09:52 | Occupational Therapy Eval ---
OT Evaluation-General/PLF Medical Diagnosis Admission Date Mar 24, 2022 at 17:28 Medical Diagnosis: cardiac arrest Onset Date: Mar 24, 2022 Therapy Diagnosis Therapy Diagnosis: reduced adl status Height/Weight Height (Feet): 5 Height (Inches): 8.00 Weight (Pounds): 185 Weight (Ounces): 0.0 Precautions Precautions/Isolations: Fall Prevention, Standard Precautions Referral Referral Reason: Evaluation/Treatment Medical History Pertinent Medical History: Atrial Fib, CAD, HTN Current History Pt presented to hospital after an episode of syncope. He was reportedly pulseless and they began CPR. When EMS arrived he was found to have a pulse. Imaging reveals nondisplaced fractures of the anterior left 5th and 6th ribs. Per patient, he lives with his in a single story home. He has a lot of support from family. He was indep with adls and recently has been doing more of the iadls at home due to his being sick. He was not using any AD at baseline. He reports having a lot of recent stress due to his being sick and recently being put on hospice. Social History Home: Single Level Current Living Status: Spouse Entry Into Home: Stairs With Railing Steps Into Home: 2 ADL-Prior Level of Function SCALE: Activities may be completed with or without assistive devices. 6-Ghamchxmrr-jlboawa completes the activity by him/herself with no assistance from a helper. 5-Set-up or Clean-up Assistance-helper sets up or cleans up; patient completes activity. Hewitt assists only prior to or following the activity. 4-Supervision or Touching Assistance-helper provides verbal cues and/or touching/steadying and/or contact guard assistance as patient completes activity. Assistance may be provided throughout the activity or intermittently. 3-Partial/Moderate Assistance-helper does LESS THAN HALF the effort. Hewitt lifts, holds or supports trunk or limbs, but provides less than half the effort. 2-Substantial/Maximal Assistance-helper does MORE THAN HALF the effort. Hewitt lifts or holds trunk or limbs and provides more than half the effort. 8-Qtvvblywz-pfsyqz does ALL the effort. Patient does none of the effort to complete the activity. Or, the assistance of 2 or more helpers is required for the patient to complete the activity. If activity was not attempted, code reason: 7-Patient Refused. 9-Not Applicable-not attempted and the patient did not perform the activity before the current illness, exacerbation or injury. 10-Not Attempted due to Environmental Limitations-(lack of equipment, weather restraints, etc.). 88-Not Attempted due to Medical Conditions or Safety Concerns. Self Care: Independent Functional Cognition: Independent DME/Equipment: Tub/Shower Drive Self: Yes OT Current Status Subjective "my ribs/chest hurt any time I move" Pain rated at 6/10. Appearance Pt left sitting in recliner, family and physician entering room at therapy departure. Mental Status/Objective Patient Orientation: Person, Place, Situation Attachments: IV, Telemetry Current Hand Dominance: Right Upper Extremity ROM WNL Upper Extremity Strength Not formally tested secondary to recent rib fractures ADL-Treatment On/Off Footwear (QC): 3 Toileting Hygiene (QC): 4 Supine>sit: Min a due to pain in chest and needing slight assist to elevate torso. Once sitting, pt with good balance. Slightly impulsive, requires cues for safety. Pt was able to don bilateral shoes but needed assist to tie. He reports that he usually keeps them tied at home and will use a LHSH when donning. SBA- CGA to stand. He ambulated ~200 feet with SBA-CGA, no AD. No LOB but does need cues for safety secondary to speedy gait. Anticipate no assist needed for standing functional tasks such as clothing management or standing to void. Pt could benefit from short term OT services to address safety, balance, and overall endurance. Education OT Patient Education: Correct positioning, Energy conservation, Purpose of tx/functional activities, Safety issues, Transfer techniques Teaching Recipient: Patient Teaching Methods: Discussion Response to Teaching: Verbalize Understanding, Return Demonstration, Reinforcement Needed OT Licensed Land Surveyor Goals Fdc Goals Time Frame: Mar 30, 2022 Oral Hygiene (QC): 5 Toileting Hygiene (QC): 6 Upper Body Dressing (QC): 5 Lower Body Dressing (QC): 5 On/Off Footwear (QC): 4 1=Demonstrate adherence to instructed precautions during ADL tasks. 2=Patient will verbalize/demonstrate understanding of assistive devices/modifications for ADL. 3=Patient will improve strength/tolerance for activity to enable patient to perform ADL's. OT Education/Plan Problem List/Assessment Assessment: Decreased Activ Tolerance, Decreased Safety Aware, Impaired Funct Balance, Impaired I ADL's Discharge Recommendations Plan/Recommendations: Continue POC Therapy Discharge Recommendati: Home & Family Treatment Plan/Plan of Care Treatment,Training & Education: Yes Patient would benefit from OT for education, treatment and training to promote independence in ADL's, mobility, safety and/or upper extremity function for ADL's. Plan of Care: ADL Retraining, Functional Mobility, UE Funct Exercise/Act Treatment Duration: Mar 30, 2022 Frequency: 3 times per week (3-5x/week) Estimated Hrs Per Day: .25 hour per day Agreement: Yes Time/GCodes Start Time: 09:20 Stop Time: 09:34 Total Time Billed (hr/min): 14 Billed Treatment Time 1 visit Cassie Baires OT Mar 25, 2022 09:52
--- NOTE | 2022-03-25 09:57 | Physical Therapy Evaluation ---
PT Evaluation-General Medical Diagnosis Admission Date Mar 24, 2022 at 17:28 Medical Diagnosis: NSTEMI, cardiac arrest Onset Date: Mar 24, 2022 Therapy Diagnosis Therapy Diagnosis: impaired mobility Height/Weight Height (Feet): 5 Height (Inches): 8.00 Weight (Pounds): 185 Weight (Ounces): 0.0 Precautions Precautions/Isolations: Fall Prevention, Standard Precautions Referral Physician: [place] Reason for Referral: Evaluation/Treatment Medical History Additional Medical History Past Medical History Surgeries: Cardiac, Coronary Stent Atrial Fibrillation, Coronary Artery Disease, High Cholesterol, Hypertension Kidney Stones Abdominal Hernia, Hemorrhoids Loss of Vision: Denies Hearing Impairment: Hearing Aide Right, Hearing Aide Left Blood Disorders: No Adverse Reaction/Blood Tranf: No Reviewed History: Yes Social History Home: Single Level Current Living Status: Spouse Entry Into Home: Stairs With Railing PT Steps Into Home: 2 Prior Prior Level of Function SCALE: Activities may be completed with or without assistive devices. 3-Jcduqvhlzd-ktlejvb completes the activity by him/herself with no assistance from a helper. 5-Set-up or Clean-up Assistance-helper sets up or cleans up; patient completes activity. [place] assists only prior to or following the activity. 4-Supervision or Touching Assistance-helper provides verbal cues and/or touching/steadying and/or contact guard assistance as patient completes activity. Assistance may be provided throughout the activity or intermittently. 3-Partial/Moderate Assistance-helper does LESS THAN HALF the effort. Yorklyn lifts, holds or supports trunk or limbs, but provides less than half the effort. 2-Substantial/Maximal Assistance-helper does MORE THAN HALF the effort. [place] lifts or holds trunk or limbs and provides more than half the effort. 9-Bnktdogje-dvbotq does ALL the effort. Patient does none of the effort to complete the activity. Or, the assistance of 2 or more helpers is required for the patient to complete the activity. If activity was not attempted, code reason: 7-Patient Refused. 9-Not Applicable-not attempted and the patient did not perform the activity before the current illness, exacerbation or injury. 10-Not Attempted due to Environmental Limitations-(lack of equipment, weather restraints, etc.). 88-Not Attempted due to Medical Conditions or Safety Concerns. Bed Mobility: 6 Transfers (B,C,W/C): 6 Gait: 6 Stairs: 6 Indoor Mobility (Ambulation): Independent Stairs: Independent PT Evaluation-Current Subjective Patient in bed pre tx, agrees to PT, has some pain due to rib fx. Pt/Family Goals to be independent at home Objective Patient Orientation: Person, Place, Situation Attachments: IV ROM/Strength ROM Lower Extremities WNL Strength Lower Extremities BLE grossly 5/5 except for right dorsiflexion 4/5 Sensory Vision: Functional Hearing: Impaired Sensation Right Lower Extremit: Intact Sensation Left Lower Extremity: Intact Transfers Roll Left to Right (QC): 6 Sit to Lying (QC): 3 Lying to Sitting/Side of Bed(Q: 3 Sit to Stand (QC): 4 Chair/Ntg-wn-Noqck Xfer(QC): 4 supine <-> sit min assist due to rib pain Gait Does the Patient Walk?: Yes Mode of Locomotion: Walk Anticipated Mode of Locomotion: Walk Walk 10 feet (QC): 4 Walk 50 ft with 2 Turns(QC): 4 Walk 150 ft (QC): 4 Distance: 200' Gait Assistive Device: None Comments/Gait Description brisk ambulation, needed cues to slow down and be mindful of his IV line and pole. Assessment/Needs Patient in recliner post tx with nurse call, phone, tray, all needs met, family in room and talking to doctor. Patient has impaired mobility. Needs some ass ist to get into and out of bed due to rib pain. Rehab Potential: Fair PT Enamel Applier Goals Enamel Applier Goals PT Senior Care Goals Time Frame: Apr 01, 2022 Roll Left & Right (QC): 6 Sit to Lying (QC): 6 Lying-Sitting on Side/Bed(QC): 6 Sit to Stand (QC): 6 Chair/Opg-by-Oikqa Xfer(QC): 6 Walk 10 feet (QC): 6 Walk 50ft with 2 Turns (QC): 6 Walk 150 ft (QC): 6 PT Plan Problem List Problem List: Activity Tolerance, Functional Strength, Safety, Balance, Gait, Transfer, ROM Treatment/Plan Treatment Plan: Continue Plan of Care Treatment Plan: Education, Functional Activity Roro, Functional Strength, Gait, Safety, Therapeutic Exercise, Transfers Treatment Duration: Apr 01, 2022 Frequency: 6 times per week Estimated Hrs Per Day: .25 hour per day Patient and/or Family Agrees t: Yes Safety Risks/Education Patient Education: Gait Training, Transfer Techniques, Correct Positioning, Safety Issues Teaching Recipient: Patient Teaching Methods: Demonstration, Discussion Response to Teaching: Reinforcement Needed Discharge Recommendations Plan Patient will perform bed mobility and transfer training, balance and endurance training, functional strengthening, stair training, gait training, and education, to improve functional mobility and independence at home. Therapy Discharge Recommendati: Home & Family, Post Acute PT Time/GCodes Time In: 918 Time Out: 934 Total Billed Treatment Time: 16 Total Billed Treatment 1 visit EVL 16' SULTANA HEALY PT Mar 25, 2022 09:57
[2022-03-25] MEDS ORDERED: meTOproloL SUCCINATE 50 MG (TOPROL XL) TAB PO ONE (10:00)
[2022-03-25] MEDS ORDERED: CLOPIDOGREL 75 MG (PLAVIX) TABLET PO ONE (10:00)
[2022-03-25] MEDS ORDERED: HEParin (CATH LAB) 1,000 ML IV ONE (10:20)
[2022-03-25] MEDS ORDERED: LIDOCAINE 1% INJ 20 ML VIAL ONE (10:20)
--- NOTE | 2022-03-25 10:32 | Tele-ICU Progress Note ---
Subjective Date Seen by a Provider: Mar 25, 2022 Time Seen by a Provider: 10:31 Subjective/Events-last exam (Tele-ICU Physician , Progress Note ) Available chart/ vitals / labs / Images reviewed Video assessment done using teleICU camera, rest of exam as per RN Discussed with RN , EXAM PER RN Events overnight : Afebrile FiO2 - ra I/O = Drips: Pressors: , hemodynamically stable Consultants: megan Hospital course: (03/24) 86/M admitted for syncopal episode at home, CPR initiated by family, p atient had pulse and spontaneous respirations upon EMS arrival. A/P reported pulseless per family- Presumed Cardiac arrest - CPR by family with ROCS prior to sales account manager arrival - , most likely is syncope NSTEMI, CAD - as per cards - ECHO pending Rib fractures - post chest compressions - pain control PAF, now appears to be permanent, with a controlled ventricular response - OAC with Eliquis, now on lovenox 80 bid Chronic reynolds CHF - clinically compensated - Echo of 12/10/19: LVEF 60-65% - lasix last night , on RA now Lines : (Central Line Necessity Reviewed) Hassan: OG: Nutrition: Analgesia: Anxiety/ delirium VTE Prophylaxis: lovenox 80 bid Stress Ulcer Prophylaxis: na Plans in collaboration with bedside consultants and IM MDs. Discussed with RN to reach out if any questions or concerns A total of 20 minutes of critical care time was devoted to this patient today, required to treat and/or prevent further deterioration of critical care condition ( as above) . Sepsis Event Evaluation Height, Weight, BMI Height: 5'8.00" Weight: 185lbs. 0.0oz. 83.701074qw; 29.01 BMI Method:Stated Exam Exam Patient acknowledged, consented, and participated in this virtual visit which was conducted using real time audio/video Vital Signs Date Time Temp Pulse Resp B/P (MAP) Pulse Ox O2 Delivery O2 Flow Rate FiO2 03/25/22 09:00 89 14 143/90 97 Room Air 03/25/22 08:00 82 25 150/71 97 Room Air 03/25/22 07:00 36.3 03/25/22 07:00 74 03/25/22 07:00 60 26 141/78 97 Room Air 03/25/22 06:46 98 Room Air 03/25/22 06:00 58 16 139/82 99 Room Air 03/25/22 05:00 68 37 121/75 94 Room Air 03/25/22 04:00 Room Air 03/25/22 04:00 60 9 149/92 95 Room Air 03/25/22 04:00 36.4 03/25/22 03:00 57 12 146/85 98 Room Air 03/25/22 02:00 55 15 132/82 97 Room Air 03/25/22 01:00 56 28 123/78 92 Room Air 03/25/22 01:00 56 03/25/22 00:00 Room Air 03/25/22 00:00 36.5 03/25/22 00:00 65 9 128/73 96 Room Air 03/24/22 23:30 56 25 127/76 99 Room Air 03/24/22 23:16 55 34 113/80 97 Room Air 03/24/22 22:46 99 Room Air 03/24/22 21:12 71 24 130/100 94 Room Air 03/24/22 21:00 56 10 97 Room Air 03/24/22 20:07 36.8 03/24/22 20:00 65 36 Room Air 03/24/22 19:30 Room Air 03/24/22 19:00 56 14 97 Room Air 03/24/22 19:00 60 03/24/22 18:06 56 18 118/77 95 03/24/22 12:15 35.7 70 22 151/95 (113) 98 I & O 03/25/22 07:00 Intake Total 952 ml Output Total 450 ml Balance 502 ml Height & Weight Height: 5'8.00" Weight: 185lbs. 0.0oz. 83.991612wy; 29.01 BMI Method:Stated General Appearance: No Apparent Distress, Chronically ill HEENT: PERRL/EOMI, Pharynx Normal Neck: Normal Inspection, Supple Respiratory: Lungs Clear, No Respiratory Distress Cardiovascular: Regular Rate, Rhythm, No Murmur Capillary Refill: Less Than 3 Seconds Extremity: Non Tender, Inflammation (left koenig), Swelling Neurologic/Psychiatric: Alert, Oriented x3, Normal Mood/Affect Skin: Normal Color, Warm/Dry Results Lab Laboratory Tests 03/24/22 12:26 Assessment/Plan Assessment/Plan 1 SAMUEL ALVAREZ MD Mar 25, 2022 10:32
[2022-03-25] MEDS: NS IV 1000 ML 1,000 ML IV SCH ×2 (11:02→21:53)
[2022-03-25 12:12] LABS: HEMATOCRIT 48 % (40-54); HEMOGLOBIN 15.9 g/dL (13.3-17.7); MEAN CORPUSCULAR HEMOGLOBIN 31 pg (25-34); MEAN CORPUSCULAR HGB CONC 33 g/dL (32-36); MEAN CORPUSCULAR VOLUME 94 fL (80-99); MEAN PLATELET VOLUME 11.4 fL (9.0-12.2); PLATELET COUNT 164 10^3/uL (130-400); WHITE BLOOD COUNT 9.4 10^3/uL (4.3-11.0)
[2022-03-25 12:34] LABS: POTASSIUM 3.7 MMOL/L (3.6-5.0)
[2022-03-25 12:35] LABS: ALBUMIN 3.9 GM/DL (3.2-4.5)
[2022-03-25 12:36] LABS: CALCIUM 8.8 MG/DL (8.5-10.1)
[2022-03-25 12:37] LABS: TOTAL PROTEIN 6.5 GM/DL (6.4-8.2)
[2022-03-25 12:41] LABS: CREATININE SERUM 1.29 MG/DL (0.60-1.30)
[2022-03-25] MEDS ORDERED: POTA10CA43 PO (13:41)
[2022-03-25] MEDS ORDERED: CALC500T7 PO (13:41)
[2022-03-25] MEDS ORDERED: ACET-2267 PO (13:41)
[2022-03-25] MEDS ORDERED: PANT40TA52 PO (13:41)
[2022-03-25] MEDS ORDERED: fentaNYL INJ 100 MCG/2 ML AMP ONE (16:53)
[2022-03-25] MEDS ORDERED: MIDAZOLAM 5 MG/5 ML (VERSED) VIAL ONE (16:53)
--- NOTE | 2022-03-25 18:09 | Progress Note ---
Standard Progress Note Progress Notes/Assess & Plan Date Seen by a Provider: Mar 25, 2022 Time Seen by a Provider: 18:00 Progress/Assessment & Plan doing well. chest pain controlled. no SOB. PE: chest-clear, good BS bilat heart-reg, no murmurs extr-no LE edema, neg homans heent-no neck pain, no scleral icterus. abd-soft, NT/ND skin-warm/dry CONCHA OLIVER MD Mar 25, 2022 18:09
[2022-03-25] MEDS ORDERED: HEParin 1000 UNIT/ML (10ML VIAL) FOR BOLUS ONE (19:21)
[2022-03-25] MEDS ORDERED: EPTIFIBATIDE BOLUS 20 ML IV ONE (19:21)
[2022-03-25] MEDS ORDERED: NITRO DRIP 25000 MCG/D5W 0 ML IV ONE (19:31)
[2022-03-25] MEDS ORDERED: ASPIRIN 81 MG CHEW (CHILDREN'S ASA) ONE (20:06)
[2022-03-25] MEDS ORDERED: CLOPIDOGREL 75 MG (PLAVIX) TABLET ONE (20:06)
--- NOTE | 2022-03-25 20:13 | Consultation-Cardiology ---
HPI-Cardiology Cardiology Consultation: Date of Consultation 03/25/22 Time Seen by a Provider: 20:00 Date of Admission Attending Physician Barney Chu DO Admitting Physician Admitting Physician: Kaley Burris MD Attending Physician: Kaley Burris MD Consulting Physician RG OLIVEIRA MD, MA, FACP, FACC, FSCAI, CCDS Seen at 9:30 am and at 6:45 pm to 8:10 pm today HPI: Chief Complaint: Syncope and collapse Post chest compressions Mr. Kraft is an 86 yr old male admitted to ICU 7 from the ED post syncope and collapse. He reports he remembers getting up from the kitchen table and the next thing he recalls he was waking up on the floor. He reports his daughter in law was home at the time. There is no family present at the bedside. ED reports he collapsed at home and his daughter in law did chest compressions after finding him pulseless and not breathing. By the time EMS arrived he was awake and responsive. He reports increased stress at home d/t his being up in critically ill. (She is now home with Hospice) He reports he was in for 3 days and did not have his medications with him. He states he did take them yesterday. He reports he has been having frequent heartburn for which he has been taking TUMS frequently. He denies any c/o CP, palpitations, SOB, dizziness or diaphoresis prior to yesterdays event. He reports he is having chest pain, left sided localized which is reproducible with palpation. No c/o LE swelling. No c/o fever or chills. No c/o n/v/d. Review of Systems-Cardiology Review of Systems Constitutional: No chills, No fever, No lightheadedness, No malaise Eyes: No vision change Ears/Nose/Throat: No epistaxis, No recent hearing loss Respiratory: As described under HPI Cardiovascular: As described under HPI Gastrointestinal: As described under HPI Genitourinary: No dysuria, No hematuria Skin: No rash on exposed areas, No ulcerations on exposed areas Psychiatric/Neurological: As described under HPI; No seizure, No focal weakness Hematologic: No bleeding abnormalities TQV-Pdshld-Uaewwh Hx Patient Social History 2nd Hand Smoke Exposure: No Have you traveled recently?: No Alcohol Use?: Yes Pt feels they are or have been: No Immunizations Up To Date Tetanus Booster (TDap): Less than 5yrs Past Medical History PMH As described under Assessment. Family Medical History Family Medical History: He does not report fam h/o early CAD or SCD Family History: Completed stroke 21 FATHER G8 BROTHER FH: cancer G8 BROTHER G8 SISTER Allergies and Home Medications Allergies Coded Allergies: No Known Drug Allergies (Verified , 03/09/18) Patient Home Medication List Home Medication List Reviewed: Yes Acetaminophen (Tylenol Extra Strength) 500 Mg Tablet, 500-1,000 MG PO Q8H PRN for PAIN-MILD (1-4), (Reported) Entered as Reported by: ARNULFO LONDON on 03/25/221340 Last Action: Reviewed Apixaban (Eliquis) 5 Mg Tablet, 5 MG PO BID, (Reported) Entered as Reported by: АННА HERNANDEZ on 03/24/221851 Last Action: Reviewed Calcium Carbonate (Tums) 200 Mg Calcium (500 Mg) Tab.chew, 200-400 MG PO Q6H PRN for INDIGESTION, (Reported) Entered as Reported by: ARNULFO LONDON on 03/25/221340 Last Action: Reviewed Furosemide (Furosemide) 40 Mg Tablet, 40 MG PO DAILY, (Reported) Entered as Reported by: NADINE CHE on 07/14/18731 Last Action: Reviewed Metoprolol Succinate (Metoprolol Succinate) 100 Mg Tab.er.24h, 100 MG PO DAILY, (Reported) Entered as Reported by: АННА HERNANDEZ on 03/24/221851 Last Action: Reviewed [place]-3/Dha/Epa/Fish Oil (Fish Oil EC 1,200 mg Softgel) 1 Each Capsule.dr, 1 EACH PO DAILY, (Reported) Entered as Reported by: NADINE CHE on 07/14/18731 Last Action: Reviewed Pantoprazole Sodium (Pantoprazole Sodium) 40 Mg Tablet.dr, 40 MG PO HS, (Reported) Entered as Reported by: ARNULFO LONDON on 03/25/221340 Last Action: Reviewed Potassium Chloride (Potassium Chloride) 10 Meq Capsule.er, 10 MEQ PO HS, (Reported) Entered as Reported by: ARNULFO LONDON on 03/25/221340 Last Action: Reviewed Discontinued Medications Apixaban (Eliquis) 5 Mg Tablet, 5 MG PO DAILY, (Reported) Discontinued Reason: No Longer Taking Entered as Reported by: YOSVANY OLSON on 03/10/18 0958 Last Action: Discontinued Aspirin (Aspirin) 81 Mg Tab.chew, 81 MG PO DAILY Discontinued Reason: No Longer Taking Prescribed by: SO MARCIAL on 07/15/18 0901 Last Action: Discontinued Atorvastatin Calcium (Atorvastatin Calcium) 40 Mg Tablet, 40 MG PO HS, (Reported) Discontinued Reason: No Longer Taking Entered as Reported by: YEIMI CASTANON on 02/11/17 1636 Last Action: Discontinued Doxazosin Mesylate (Doxazosin Mesylate) 1 Mg Tablet, 1 MG PO HS Discontinued Reason: No Longer Taking Prescribed by: SHANTEL MCCLURE on 01/06/19 114 Last Action: Discontinued Metoprolol Succinate (Metoprolol Succinate) 50 Mg Tab.er.24h, 50 MG PO DAILY, (Reported) Discontinued Reason: No Longer Taking Entered as Reported by: NADINE CHE on 07/14/18731 Last Action: Discontinued Metoprolol Succinate (Toprol Xl) 25 Mg Tab.er.24h, 25 MG PO DAILY Discontinued Reason: No Longer Taking Prescribed by: SHANTEL MCCLURE on 01/06/19 1145 Last Action: Discontinued Pantoprazole Sodium (Protonix) 40 Mg Tablet.dr, 40 MG PO DAILY, (Reported) Discontinued Reason: Duplicate Order Entered as Reported by: АННА HERNANDEZ on 03/24/22 2618 Last Action: Discontinued Potassium Chloride (Potassium Chloride) 10 Meq Tab.er.prt, 10 MEQ PO DAILY, (Reported) Discontinued Reason: Duplicate Order Entered as Reported by: NADINE CHE on 07/14/18731 Last Action: Discontinued Physical Exam-Cardiology Physical Exam Vital Signs/I&O 03/25/22 03/25/22 03/25/22 03/25/22 09:00 10:00 11:00 12:00 Pulse 89 71 57 Resp 14 13 28 B/P (MAP) 143/90 153/79 142/83 Pulse Ox 97 98 99 O2 Delivery Room Air Room Air Room Air Room Air 03/25/22 03/25/22 03/25/22 03/25/22 12:00 12:00 12:39 13:00 Temp 36.3 Pulse 71 62 61 Resp 10 23 B/P (MAP) 101/69 132/66 Pulse Ox 100 100 O2 Delivery Room Air Room Air 03/25/22 03/25/22 03/25/22 03/25/22 14:00 15:00 15:10 15:58 Pulse 57 58 Resp 22 15 B/P (MAP) 138/88 127/73 Pulse Ox 97 97 97 O2 Delivery Room Air Room Air Room Air Room Air 03/25/22 03/25/22 03/25/22 03/25/22 16:00 16:00 17:00 18:00 Temp 36.2 Pulse 70 90 82 Resp 30 11 12 B/P (MAP) 131/97 137/81 Pulse Ox 97 91 98 O2 Delivery Room Air Room Air Room Air 03/25/22 00:00 Intake Total 652 ml Output Total 350 ml Balance 302 ml Capillary Refill : Less Than 3 Seconds Constitutional: AAO x 3, well-developed, well-nourished HEENT: PERRL, hearing is well preserved, oral hygience is good Neck: No carotid bruit; carotid pulses are 2 + bilaterally Respiratory: No accessory muscle use, No respiratory distress; chest expansion is symmetric, chest is bilaterally symmetric, lungs clear to auscultation Cardiovascular: irregularly irregular; No JVD; S1 and S2 Gastrointestinal: No tender; soft, round, audible bowel sounds Extremities: no lower extremity edema bilateral Neurologic/Psychiatric: grossly intact (moves all extremities) Skin: No rash on exposed areas; other (abrasion to left koenig with scabbing, no redness or swelling noted) Data Review Labs Laboratory Tests 03/25/22 12:00: White Blood Count 9.4, Red Blood Count 5.13, Hemoglobin 15.9, Hematocrit 48, Mean Corpuscular Volume 94, Mean Corpuscular Hemoglobin 31, Mean Corpuscular Hemoglobin Concent 33, Red Cell Distribution Width 14.7H, Platelet Count 164, Mean Platelet Volume 11.4, Sodium Level 140, Potassium Level 3.7, Chloride Level 103, Carbon Dioxide Level 24, Anion Gap 13, Blood Urea Nitrogen 18, Creatinine 1.29, Estimat Glomerular Filtration Rate 55, BUN/Creatinine Ratio 14, Glucose Level 152H, Calcium Level 8.8, Corrected Calcium 8.9, Total Bilirubin 1.0, Aspartate Amino Transf (AST/SGOT) 42H, Alanine Aminotransferase (ALT/SGPT) 45, Alkaline Phosphatase 65, Total Protein 6.5, Albumin 3.9, Triglycerides Level 287H, Cholesterol Level 254H, LDL Cholesterol Direct 163H, VLDL Cholesterol 57H, HDL Cholesterol 49 A/P-Cardiology Assessment/Admission Diagnosis NSTEMI - treated with PCI to prox and mid LAD today (see cath report below) Syncope and collapse (reported pulseless per family) - Post chest compressions Elevated liver enzymes of undetermined etiology Rib fractures - post chest compressions PAF, now appears to be permanent, with a controlled ventricular response at this time - OAC with Eliquis - Mild hyperthyroidism suggested on lab work of 01/21/20: TSH 0.42 (range 0.465 - 4.68); ESR 43 (range 0 - 14) CAD - Cardiac cath of 07-14-18: 90% kco-qj-mkajyw vessel stenosis of the left anterior descending artery within a small caliber vessel to which balloon angioplasty was carried out which reduced the stenosis to less than 50%. The rest of the coronary vessels have moderate diffuse disease. There is a patent stent in the right coronary with a 50% in-stent restenosis (unchanged compared to previous study). Elevated left ventricular end-diastolic pressure. - MPI of 12/07/19: no ischemia or infarction, LVEF 48% (appeared to be higher, subjectively) - Card cath on 03/25/22: 90-85 prox and mid LAD stenosis treated with PTCA and then 2.25 x 23 mm GABRIELA, distal LAD, distal LCX, and prox RI have severe disease that is not amenable to intervention, RCA is dominant with patent prox stent with up to 50 instent and distal RCA with up to 50 stenoses, LVEDP 22 mmHg Chronic reynolds CHF - clinically compensated - Echo of 12/10/19: LVEF 60-65%, mild to mod LA and RA dilatation, mild MAC, mild AoV sclerosis w/o stenosis, mild MR, RVSP24 mmHg Hyperlipidemia. - statin tx - followed by PCP History of intermittent noncompliance of medications Umbilical hernia Suspected ANANT Lumbar spondylosis and spinal stenosis - being followed by Dr Mahan ([place], [place]) Discussion and Recomendations * Card cath carried after long and detailed discussion of pros and cons with the patient and his family, including additional risk of contrast nephropathy (given baseline renal insuff) * Results of cath and intervention described above * Continue DAPT and Eliquis for now. Switch later to only Plavix + Eliquis * Monitor labs closely Clinical Quality Measures AMI/AHF: ASA po Prior to arrival: RG Clancy MD FACP FAC CCDS Mar 25, 2022 20:13
[2022-03-25] MEDS ORDERED: PATIENT MAY USE OWN MEDS, ALL PO SCH (20:15)
[2022-03-25] MEDS ORDERED: APIXABAN 5 MG (ELIQUIS) TABLET PO SCH (21:00)
[2022-03-25] MEDS: morphine INJ 4 MG/ML 1 ML (VIAL/SYRINGE) IVP PRN (21:47)
--- NOTE | 2022-03-25 22:22 | Cardiac Procedure Note-CS/ASA ---
Pre-Procedure Note Pre-Op Procedure Note H&P Reviewed The H&P was reviewed, patient examined and no changes noted. Date H&P Reviewed: Mar 25, 2022 Time H&P Reviewed: 18:00 Conscious Sedation Pre-Proced Time 18:00 ASA Score 3 For ASA 3 and 4: Consider anesthesia and medical clearance. Also, for patients with a history of failed moderate sedation consider anesthesia. Airway Lungs Heart ASA score ASA 1: a normal healthy patient ASA 2: a patient with a mild systemic disease (mid diabetes, controlled hypertension, obesity ASA 3: a patient with a severe systemic disease that limits activity (angina, COPD, prior Myocardial infarction) ASA 4: a patient with an incapacitating disease that is a constant threat to life (CHF, renal failure) ASA 5: a moribund patient not expected to survive 24 hrs. (ruptured aneurysm) ASA 6: a declared brain- patient whose organs are being harvested. For emergent operations, add the letter E after the classification Mallampati Classification Grade 1 Sedation Plan Analgesia, Amnesia, Plan communicated to team members, Discussed options with patient/fam The patient is an appropriate candidate to undergo the planned procedure, sedation, and anesthesia. The patient immediately re-assessed prior to indication. RG OLIVEIRA MD FACP FAC CCDS Mar 25, 2022 22:22
[2022-03-25] MEDS ORDERED: ATROPINE INJ 0.4 MG/ML SDV ONE (23:02)
[2022-03-26] MEDS: APIXABAN 2.5 MG (ELIQUIS) TABLET PO SCH ×3 (00:37→20:46)
[2022-03-26] MEDS: MELATONIN 3 MG TABLET PO PRN (00:37)
[2022-03-26] MEDS: DOCUSATE SODIUM 100 MG (COLACE) CAP PO SCH ×3 (00:37→20:46)
[2022-03-26] MEDS: HYDROcodone/APAP 7.5 MG/325 MG (LORTAB, LORCET PLUS) TABLET PO PRN (00:37)
[2022-03-26] MEDS: SENNOSIDES 8.6 MG (SENOKOT) TAB PO SCH ×3 (00:38→20:46)
--- NOTE | 2022-03-26 04:37 | CARDIAC CATHETERIZATION ---
DATE OF SERVICE: 03/25/2022 CARDIAC CATHETERIZATION REPORT There is an 86-year-old gentleman who had syncope at home and required CPR by his family. In the hospital, troponin has been mildly elevated, indicative of a small non-ST elevation myocardial infarction. He is known to have coronary artery disease. Cardiac catheterization was carried out after having obtained an informed consent. DESCRIPTION OF PROCEDURE: He was brought to the cardiac catheterization laboratory in a fasting state. Vigorous perioperative hydration was started before the procedure, continued during the procedure and continued afterwards. This was to reduce risk of contrast nephropathy, given his baseline renal insufficiency. The right groin was prepared and draped in the usual sterile fashion. Lidocaine 1% was used for local anesthesia. Modified Seldinger technique was used to advance a 5-[place] sheath in right femoral artery, 5-[place] JL4 catheter was used for left coronary angiography, 5-[place] JR4 catheter for right coronary angiography, 5-[place] pigtail catheter was used for left heart catheterization and left ventricular angiography was not performed. This was to conserve contrast to reduce risk of contrast nephropathy. PERCUTANEOUS INTERVENTION OF LEFT ANTERIOR DESCENDING: The left anterior descending artery was exhibiting 95% proximal and mid vessel stenosis. We used a 6-[place] JL4 guide catheter and advanced a BMW wire across the lesion and carried out balloon angioplasty with a 2.0 x 30 mm balloon. Subsequently, we were not able to advance 2.25 x 28 mm stent. In the effort, the wire position was lost. We removed the wire and stent, and chained the guide to a 6-C[place] Q3.5 guide. We advanced a ChoICE extra support wire across the lesion and we were able to advance a 2.25 x 23 mm stent to the lesion and the stent was deployed at 9 atmospheres. The balloon was then collapsed and pulled back to the proximal two-thirds of the standard segment and inflated to 16 atmospheres. This was because the proximal part of the standard segment is slightly larger than the distal segment. Subsequent angiography revealed 0% residual stenosis at the previous site of 95% stenosis and flow throughout the vessel is normal. He tolerated the procedure well. Angiography of the right femoral artery through the sheath indicated that the site of sheath deployment was not suitable for device closure. This sheath was sutured in place and the patient was transferred to the floor for manual sheath removal. HEMODYNAMICS: Left ventricular end-diastolic pressure following coronary angiography was 22 mmHg. There is no significant pressure gradient on pullback across the aortic valve. CORONARY ANGIOGRAPHY: Diffuse coronary calcification is present. Left main coronary artery does not exhibit significant disease. The left anterior descending artery had 95% proximal and mid vessel stenosis that was successfully stented with Skypoint 2.25 x 23 mm stent. The very distal left anterior descending artery has severe disease and the vessel has small caliber and not amenable to intervention. The ramus intermedius artery is of a small caliber and had severe ostial, proximal and mid vessel disease and is not suitable for percutaneous intervention. The left circumflex artery has severe distal disease and is not suitable for intervention on account of small caliber vessels. The right coronary artery is dominant and has a widely patent stent in its proximal to mid portion with approximately 50% in-stent restenosis. The distal right coronary artery has multiple 50% stenoses. CONCLUSIONS: 1. Coronary artery disease as detailed above. The proximal and mid left anterior descending artery had 95% stenosis and was successfully stented with Skypoint 2.25 x 23 mm stent. The distal left anterior descending artery has severe disease and is not amenable to intervention. The ramus intermedius artery has severe proximal and the mid vessel disease, is of small caliber and not suitable for percutaneous intervention. The left circumflex artery has severe distal disease and is not suitable for percutaneous intervention due to small caliber. Right coronary artery is dominant and has a patent stent in its proximal to mid portion with 50% in-stent restenosis. The distal right coronary artery has multiple 50% stenosis. 2. Left ventricular end-diastolic pressure 22 mmHg. DISCUSSION AND RECOMMENDATIONS: Dual antiplatelet therapy is being continued. Because of his chronic, permanent atrial fibrillation, oral anticoagulation is being continued. Later, clopidogrel and apixaban will be continued while holding off on aspirin due to reduce risk of bleeding. Risk factor modification has been reviewed. Job ID: [id number] DocumentID: [id number] Dictated Date: 03/25/2022 23:03:07 Warehouse Attendant Date: 03/26/2022 04:36:15 Dictated By: RG OLIVEIRA MD, MA, FACP, FACC, MTDD
[2022-03-26 05:12] LABS: BASOPHILS % (AUTO) 0 % (0-10); EOSINOPHILS # (AUTO) 0.1 10^3/uL (0.0-0.3); EOSINOPHILS % (AUTO) 1 % (0-10); HEMATOCRIT 46 % (40-54); HEMOGLOBIN 14.8 g/dL (13.3-17.7); LYMPHOCYTES # (AUTO) 1.4 10^3/uL (1.0-4.0); LYMPHOCYTES % (AUTO) 16 % (12-44); MEAN CORPUSCULAR HEMOGLOBIN 31 pg (25-34); MEAN CORPUSCULAR HGB CONC 33 g/dL (32-36); MEAN CORPUSCULAR VOLUME 94 fL (80-99); MEAN PLATELET VOLUME 11.7 fL (9.0-12.2); MONOCYTES # (AUTO) 0.8 10^3/uL (0.0-1.0); MONOCYTES % (AUTO) 9 % (0-12); NEUTROPHILS # (AUTO) 6.8 10^3/uL (1.8-7.8); NEUTROPHILS % (AUTO) 74 % (42-75); PLATELET COUNT 146 10^3/uL (130-400); WHITE BLOOD COUNT 9.2 10^3/uL (4.3-11.0)
[2022-03-26 05:24] LABS: ALBUMIN 3.7 GM/DL (3.2-4.5); POTASSIUM 3.8 MMOL/L (3.6-5.0)
[2022-03-26 05:26] LABS: CALCIUM 8.5 MG/DL (8.5-10.1)
[2022-03-26 05:27] LABS: TOTAL PROTEIN 6.2 GM/DL (6.4-8.2)
[2022-03-26 05:29] LABS: BILIRUBIN,TOTAL 0.9 MG/DL (0.1-1.0)
[2022-03-26 05:30] LABS: CREATININE SERUM 1.1 MG/DL (0.60-1.30)
[2022-03-26] MEDS: RT-ALBUTEROL SULF 2.5 MG/3 ML PRE-MIX VIAL INH SCH ×3 (08:06→22:35)
[2022-03-26] MEDS: NS IV 1000 ML 1,000 ML IV SCH ×3 (08:17→12:55)
[2022-03-26] MEDS: CLOPIDOGREL 75 MG (PLAVIX) TABLET PO SCH (08:42)
[2022-03-26] MEDS: meTOproloL SUCCINATE 50 MG (TOPROL XL) TAB PO SCH (08:42)
[2022-03-26] MEDS: ASPIRIN 81 MG CHEW (CHILDREN'S ASA) PO SCH (08:42)
--- NOTE | 2022-03-26 10:52 | Physical Therapy Progress Note ---
Therapy Progress Note Patient up at sink brushing his own teeth, nurse aide states he has been ambulating on his own. Patient states he is doing well and getting around without difficulty. Will DC from PT services at this time. SULTANA HEALY PT Mar 26, 2022 10:52
--- NOTE | 2022-03-26 10:58 | Occ Therapy Progress Note ---
Therapy Progress Note Attempted OT treatment this morning. Pt reports he has been up walking the halls and already brushed his teeth and cleaned up this morning. HONEY PROCESSOR in agreement and reports he was indep with all tasks. Pt denies any self care concerns. No further OT services warranted at this time. 1 visit Cassie Valle OT Mar 26, 2022 10:58
--- NOTE | 2022-03-26 10:59 | Progress Note - Cardiology ---
Cardiology SOAP Progress Note Subjective: Sitting up in recliner at the bedside No c/o CP, SOB, palpitations, syncope or near syncope Objective: I&O/Vital Signs 03/26/22 03/27/22 03/27/22 03/27/22 22:35 00:11 04:19 07:21 Temp 36.9 36.7 Pulse 104 92 Resp 20 18 B/P (MAP) 156/87 143/92 Pulse Ox 97 98 95 96 O2 Delivery Room Air Room Air Room Air Room Air O2 Flow Rate 0.00 0.00 03/27/22 07:24 Temp 36.5 Pulse 84 Resp 18 B/P (MAP) 148/81 (103) Pulse Ox 99 O2 Delivery Room Air 03/26/22 23:59 Intake Total 2840 ml Balance 2840 ml Weight (Pounds): 185 Weight (Ounces): 0.0 Weight (Calculated Kilograms): 83.847274 Side: right Condition: DP/PT pulses palpable, extremity w/d/p Bruising: mild bruising Constitutional: AAO x 3, well-developed, well-nourished Respiratory: No accessory muscle use, No respiratory distress; chest expansion is symmetric, chest is bilaterally symmetric, lungs clear to auscultation Cardiovascular: irregularly irregular; No JVD; S1 and S2 Gastrointestional: No tender; soft, round, audible bowel sounds Extremities: no lower extremity edema bilateral Neurologic/Psychiatric: grossly intact (moves all extremities) Skin: No rash on exposed areas; other (abrasion to left koenig with scabbing, no redness or swelling noted) Results/Procedures: Labs Laboratory Tests 03/27/22 05:44: White Blood Count 8.1, Red Blood Count 4.66, Hemoglobin 14.3, Hematocrit 43, Mean Corpuscular Volume 93, Mean Corpuscular Hemoglobin 31, Mean Corpuscular Hemoglobin Concent 33, Red Cell Distribution Width 15.0H, Platelet Count 142, Mean Platelet Volume 11.5, Sodium Level 135, Potassium Level 3.6, Chloride Level 105, Carbon Dioxide Level 21, Anion Gap 9, Blood Urea Nitrogen 14, Creatinine 0.97, Estimat Glomerular Filtration Rate 77, BUN/Creatinine Ratio 14, Glucose Level 104, Calcium Level 8.6, Corrected Calcium 8.9, Total Bilirubin 0.9, Aspartate Amino Transf (AST/SGOT) 27, Alanine Aminotransferase (ALT/SGPT) 28, Alkaline Phosphatase 68, Total Protein 5.9L, Albumin 3.6 Microbiology 03/24/22 MRSA Screen - Final, Complete MRSA not isolated A/P: Assessment: NSTEMI - treated with PCI to prox and mid LAD today (see cath report below) Syncope and collapse (reported pulseless per family) - Post chest compressions - Advise ILR implant Elevated liver enzymes of undetermined etiology Rib fractures - post chest compressions PAF, now appears to be permanent, with a controlled ventricular response at this time - OAC with Eliquis - Mild hyperthyroidism suggested on lab work of 01/21/20: TSH 0.42 (range 0.465 - 4.68); ESR 43 (range 0 - 14) CAD - Cardiac cath of 07-14-18: 90% [id number] vessel stenosis of the left anterior descending artery within a small caliber vessel to which balloon angioplasty was carried out which reduced the stenosis to less than 50%. The rest of the coronary vessels have moderate diffuse disease. There is a patent stent in the right coronary with a 50% in-stent restenosis (unchanged compared to previous study). Elevated left ventricular end-diastolic pressure. - MPI of 12/07/19: no ischemia or infarction, LVEF 48% (appeared to be higher, subjectively) - Card cath on 03/25/22: 90-85 prox and mid LAD stenosis treated with PTCA and then 2.25 x 23 mm GABRIELA, distal LAD, distal LCX, and prox RI have severe disease that is not amenable to intervention, RCA is dominant with patent prox stent with up to 50 instent and distal RCA with up to 50 stenoses, LVEDP 22 mmHg Chronic reynolds CHF - clinically compensated - Echo of 12/10/19: LVEF 60-65%, mild to mod LA and RA dilatation, mild MAC, mild AoV sclerosis w/o stenosis, mild MR, RVSP24 mmHg Hyperlipidemia. - statin tx - followed by PCP History of intermittent noncompliance of medications Umbilical hernia Suspected ANANT Lumbar spondylosis and spinal stenosis - being followed by Dr Mahan ([place], [place]) Plan: * Advise ILR implant d/t recent episode of syncope * discussed procedure and benefits - provides informed consent * Continue DAPT and Eliquis for now. Switch later to only Plavix + Eliquis * Monitor labs closely * He would like to go home today d/t spouse being at home on Hospice Care Clinical Quality Measures AMI/AHF: ASA po Prior to arrival: No SO MARCIAL [facility] Mar 26, 2022 10:59 RG OLIVEIRA MD [facility] CCDS Mar 26, 2022 13:22
[2022-03-26] MEDS ORDERED: METO50TA7 PO (11:00)
[2022-03-26] MEDS ORDERED: CLOP75TA28 PO (11:00)
[2022-03-26] MEDS ORDERED: ASPI81TA64 PO (11:00)
--- NOTE | 2022-03-26 11:20 | Progress Note - Hospitalist ---
FER MCLEAN MED STUDENT 03/26/22 1120: Subjective HPI/CC On Admission Date Seen by Provider: Mar 26, 2022 Time Seen by Provider: 07:45 Minh Aranda is an 86 year old male with PMH HTN, HLD, CAD, AFib, who presented after an episode of syncope. He was with his family at his house when he passed out. He was reportedly pulseless and they began CPR. When EMS arrived he was found to have a pulse. He denies any prodromal symptoms. He was not feeling lightheaded or dizzy. He did not have any chest pain or palpitations. He was not short of breath. He denies nausea and vomiting. He denies diaphoresis. His was recently put on hospice and they just returned home. This has obviously been causing a lot of stress and anxiety. He reports having some chest/throat burning more frequently this week that he thought was heartburn. Subjective/Events-last exam Pt asleep in bed, resting peacefully this morning. States he is feeling well today. Reports his rib pain has improved. He is tolerating liquids well and has regained his appetite. He is ready to eat something for breakfast today. Pt den ies fever, chills, chest pain, palpitations, SOA, cough, numbness or weakness. Pt has no other concerns at this time. Review of Systems General: No Chills, No Fatigue HEENT: No Head Aches, No Visual Changes Pulmonary: No Dyspnea, No Cough Cardiovascular: No: Chest Pain, Palpitations Gastrointestinal: No: Nausea, Vomiting Genitourinary: No Dysuria, No Frequency Musculoskeletal: other (left sided rib pain) Neurological: No: Weakness, Numbness Objective Exam Vital Signs Vital Signs Date Time Temp Pulse Resp B/P (MAP) Pulse Ox O2 Delivery O2 Flow Rate FiO2 03/26/22 09:00 114 17 150/102 99 Room Air 03/26/22 08:06 2.00 03/26/22 08:00 36.4 Capillary Refill : Less Than 3 Seconds General Appearance: No Apparent Distress, WD/WN HEENT: PERRL/EOMI, Pharynx Normal Neck: Full Range of Motion, Normal Inspection Respiratory: Chest Non Tender, Lungs Clear, Normal Breath Sounds, No Accessory Muscle Use, No Respiratory Distress Cardiovascular: No Murmur, Irregularly Irregular Gastrointestinal: Normal Bowel Sounds, Non Tender, Soft Extremity: Normal Capillary Refill, Pedal Edema (1+ pitting edema of LLE surrounding an erythematous ulceration, RLE unremarkable) Neurologic/Psychiatric: Alert, Oriented x3 Skin: Normal Color, Warm/Dry Lymphatic: No Adenopathy Results/Procedures Lab Laboratory Tests 03/25/22 12:00 03/26/22 04:38 03/26/22 04:58 Patient resulted labs reviewed. Imaging: Reviewed Imaging Films, Reviewed Imaging Report Assessment/Plan Assessment and Plan Assess & Plan/Chief Complaint Cardiac arrest Afib Left anterior rib 5-6 nondisplaced fractures CAD HTN GERD Cardiac arrest -Cardiology consulted, appreciate their recs -NSTEMI -S/p PCI for 90% stenosis of LAD on 03/25 Afib -Eliquis and Plavix Left anterior rib 5-6 nondisplaced fractures -Pain control with Lortab CAD -Consider statin therapy as triglycerides were elevated HTN Metoprolol GERD -Consider H2 kacy or PPI Patient would be good rehab candidate, however his is terminally ill on hospice at home, so this may not be a viable option for him. Will move him to general medical floor and monitor for post MD complications. Clinical Quality Measures AMI/AHF: ASA po Prior to arrival: MARILYNN Davenport DO 03/27/22 0555: Subjective Subjective/Events-last exam Pt is doing well Transferring to the floor Doesn't need in-patient rehab Loop recorder today Pain from ribs is improving Review of Systems General: Fatigue, Malaise Objective Exam General Appearance: No Apparent Distress, WD/WN, Chronically ill Respiratory: Lungs Clear, Normal Breath Sounds Cardiovascular: Irregularly Irregular Assessment/Plan Assessment and Plan Assess & Plan/Chief Complaint PT OT Monitor pain Supervisory-Addendum Brief Verification & Attestation Participated in pt care: history, MDM, physical Personally performed: exam, history, MDM, supervision of care Care discussed with: Medical Student Procedures: n/a Results interpretation: Verified all documentation Verification and Attestation of Medical Student E/M Service A medical student performed and documented this service in my presence. I reviewed and verified all information documented by the medical student and made modifications to such information, when appropriate. I personally performed the physical exam and medical decision making. Marilynn Jj, Mar 27, 2022,05:52 FER MCLEAN MED STUDENT Mar 26, 2022 11:20 MARILYNN JJ DO Mar 27, 2022 05:55
[2022-03-26] MEDS ORDERED: LIDOCAINE 1% INJ 20 ML VIAL ONE (11:51)
--- NOTE | 2022-03-26 13:39 | Progress Note - Cardiology ---
Cardiology SOAP Progress Note Subjective: No cp other than the post-CPR chest soreness No palp or syncope (since adm) No shortness of breath No n/v/d Objective: I&O/Vital Signs 03/26/22 03/26/22 03/26/22 03/26/22 02:00 03:00 04:00 04:00 Pulse 112 81 112 Resp 13 14 15 B/P (MAP) 142/106 139/96 129/103 Pulse Ox 97 98 100 O2 Delivery Room Air Room Air Room Air Room Air 03/26/22 03/26/22 03/26/22 03/26/22 05:30 06:00 07:00 07:00 Pulse 81 64 70 70 Resp 16 18 14 B/P (MAP) 120/88 123/94 137/88 Pulse Ox 100 100 100 O2 Delivery Room Air Room Air Room Air 03/26/22 03/26/22 03/26/22 03/26/22 08:00 08:00 08:00 08:06 Temp 36.4 Pulse 75 Resp 14 B/P (MAP) 130/73 Pulse Ox 100 100 O2 Delivery Room Air Room Air Nasal Cannula O2 Flow Rate 2.00 03/26/22 03/26/22 03/26/22 03/26/22 08:10 09:00 10:00 11:00 Pulse 114 115 97 Resp 17 18 19 B/P (MAP) 150/102 130/91 126/81 Pulse Ox 97 99 97 98 O2 Delivery Room Air Room Air Room Air Room Air 03/25/22 23:59 Intake Total 1240 ml Output Total 350 ml Balance 890 ml Weight (Pounds): 185 Weight (Ounces): 0.0 Weight (Calculated Kilograms): 83.050308 Side: right Condition: DP/PT pulses palpable, extremity w/d/p Bruising: mild bruising Constitutional: AAO x 3, well-developed, well-nourished Respiratory: No accessory muscle use, No respiratory distress; chest expansion is symmetric, chest is bilaterally symmetric, lungs clear to auscultation Cardiovascular: irregularly irregular; No JVD; S1 and S2 Gastrointestional: No tender; soft, round, audible bowel sounds Extremities: no lower extremity edema bilateral Neurologic/Psychiatric: grossly intact (moves all extremities) Skin: No rash on exposed areas; other (abrasion to left koenig with scabbing, no redness or swelling noted) Results/Procedures: Labs Laboratory Tests 03/26/22 04:38: Sodium Level 137, Potassium Level 3.8, Chloride Level 105, Carbon Dioxide Level 21, Anion Gap 11, Blood Urea Nitrogen 16, Creatinine 1.10, Estimat Glomerular Filtration Rate 66, BUN/Creatinine Ratio 15, Glucose Level 113H, Calcium Level 8.5, Corrected Calcium 8.7, Magnesium Level 2.0, Total Bilirubin 0.9, Aspartate Amino Transf (AST/SGOT) 30, Alanine Aminotransferase (ALT/SGPT) 33, Alkaline Phosphatase 69, Total Protein 6.2L, Albumin 3.7 03/26/22 04:58: White Blood Count 9.2, Red Blood Count 4.83, Hemoglobin 14.8, Hematocrit 46, Mean Corpuscular Volume 94, Mean Corpuscular Hemoglobin 31, Mean Corpuscular Hemoglobin Concent 33, Red Cell Distribution Width 14.9H, Platelet Count 146, Mean Platelet Volume 11.7, Immature Granulocyte % (Auto) 1, Neutrophils (%) (Auto) 74, Lymphocytes (%) (Auto) 16, Monocytes (%) (Auto) 9, Eosinophils (%) (Auto) 1, Basophils (%) (Auto) 0, Neutrophils # (Auto) 6.8, Lymphocytes # (Auto) 1.4, Monocytes # (Auto) 0.8, Eosinophils # (Auto) 0.1, Basophils # (Auto) 0.0, Immature Granulocyte # (Auto) 0.1 Microbiology 03/24/22 MRSA Screen - Final, Complete MRSA not isolated Laboratory Tests 03/25/22 12:00 03/26/22 04:38 03/26/22 04:58 A/P: Assessment: NSTEMI - treated with PCI to prox and mid LAD today (see cath report below) Syncope and collapse (reported pulseless per family) on 03/24/22 - Post chest compressions - ILR implanted on 03/26/22 Elevated liver enzymes of undetermined etiology Rib fractures - post chest compressions PAF, now appears to be permanent, with a controlled ventricular response at this time - OAC with Eliquis - Mild hyperthyroidism suggested on lab work of 01/21/20: TSH 0.42 (range 0.465 - 4.68); ESR 43 (range 0 - 14) CAD - Cardiac cath of 10-30-18: 90% [id number] vessel stenosis of the left anterior descending artery within a small caliber vessel to which balloon angioplasty was carried out which reduced the stenosis to less than 50%. The rest of the coronary vessels have moderate diffuse disease. There is a patent stent in the right coronary with a 50% in-stent restenosis (unchanged compared to previous study). Elevated left ventricular end-diastolic pressure. - MPI of 12/07/19: no ischemia or infarction, LVEF 48% (appeared to be higher, subjectively) - Card cath on 03/25/22: 90-85 prox and mid LAD stenosis treated with PTCA and then 2.25 x 23 mm GABRIELA, distal LAD, distal LCX, and prox RI have severe disease that is not amenable to intervention, RCA is dominant with patent prox stent with up to 50 instent and distal RCA with up to 50 stenoses, LVEDP 22 mmHg Chronic reynolds CHF - clinically compensated - Echo of 12/10/19: LVEF 60-65%, mild to mod LA and RA dilatation, mild MAC, mild AoV sclerosis w/o stenosis, mild MR, RVSP24 mmHg Hyperlipidemia. - statin tx - followed by PCP History of intermittent noncompliance of medications Umbilical hernia Suspected ANANT Lumbar spondylosis and spinal stenosis - being followed by Dr Mahan ([place], [place]) Plan: * ILR implanted d/t recent episode of syncope (after discussion procedure and benefits and after he provided informed consient) * Continue DAPT and Eliquis for now. Switch later to only Plavix + Eliquis * Monitor labs closely * He would like to go home today d/t spouse being at home on Hospice Care Clinical Quality Measures AMI/AHF: ASA po Prior to arrival: RG Clancy MD FACP FAC CCDS Mar 26, 2022 13:39
--- NOTE | 2022-03-26 14:36 | Progress Note ---
Subjective Date Seen by a Provider: Mar 26, 2022 Time Seen by a Provider: 14:00 Subjective/Events-last exam doing better. s/p LAD stent x2 and recorder placement. no SOB. pain controlled with deep inspiration. Objective Exam Vital Signs Date Time Temp Pulse Resp B/P (MAP) Pulse Ox O2 Delivery O2 Flow Rate FiO2 03/26/22 14:02 Room Air 03/26/22 13:43 103 03/26/22 11:00 97 19 126/81 98 Room Air 03/26/22 10:00 115 18 130/91 97 Room Air 03/26/22 09:00 114 17 150/102 99 Room Air 03/26/22 08:10 97 Room Air 03/26/22 08:06 100 Nasal Cannula 2.00 03/26/22 08:00 75 14 130/73 100 Room Air 03/26/22 08:00 Room Air 03/26/22 08:00 36.4 03/26/22 07:00 70 14 137/88 100 Room Air 03/26/22 07:00 70 03/26/22 06:00 64 18 123/94 100 Room Air 03/26/22 05:30 81 16 120/88 100 Room Air 03/26/22 04:00 Room Air 03/26/22 04:00 112 15 129/103 100 Room Air 03/26/22 03:00 81 14 139/96 98 Room Air 03/26/22 02:00 112 13 142/106 97 Room Air 03/26/22 01:00 112 03/26/22 01:00 112 18 145/96 97 Room Air 03/26/22 00:06 Room Air 03/26/22 00:00 114 13 141/97 96 Room Air 03/25/22 23:00 97 28 135/100 98 Room Air 03/25/22 23:00 110 26 143/99 98 Room Air 03/25/22 22:51 98 Room Air 03/25/22 21:45 97 28 135/100 98 Room Air 03/25/22 21:30 80 35 129/78 99 Room Air 03/25/22 21:15 69 28 125/84 92 Room Air 03/25/22 21:00 64 31 136/103 91 Room Air 03/25/22 21:00 Room Air 03/25/22 20:45 81 28 144/95 97 Room Air 03/25/22 20:32 96 03/25/22 20:31 96 36 139/109 96 Room Air 03/25/22 20:00 36.1 03/25/22 18:00 82 12 137/81 98 Room Air 03/25/22 17:00 90 11 91 Room Air 03/25/22 16:00 36.2 03/25/22 16:00 70 30 131/97 97 Room Air 03/25/22 15:58 Room Air 03/25/22 15:10 97 Room Air 03/25/22 15:00 58 15 127/73 97 Room Air I & O 03/26/22 07:00 Intake Total 1860 ml Output Total 600 ml Balance 1260 ml Capillary Refill : Less Than 3 Seconds General Appearance: No Apparent Distress HEENT: PERRL/EOMI Neck: Full Range of Motion Respiratory: Lungs Clear, Normal Breath Sounds Cardiovascular: Regular Rate, Rhythm Gastrointestinal: normal bowel sounds, non tender, soft Extremity: Normal Capillary Refill Neurologic/Psychiatric: Alert, Oriented x3 Skin: Normal Color Lymphatic: No Adenopathy Results Lab Laboratory Tests 03/26/22 04:38: Sodium Level 137, Potassium Level 3.8, Chloride Level 105, Carbon Dioxide Level 21, Anion Gap 11, Blood Urea Nitrogen 16, Creatinine 1.10, Estimat Glomerular Filtration Rate 66, BUN/Creatinine Ratio 15, Glucose Level 113H, Calcium Level 8.5, Corrected Calcium 8.7, Magnesium Level 2.0, Total Bilirubin 0.9, Aspartate Amino Transf (AST/SGOT) 30, Alanine Aminotransferase (ALT/SGPT) 33, Alkaline Phosphatase 69, Total Protein 6.2L, Albumin 3.7 03/26/22 04:58: White Blood Count 9.2, Red Blood Count 4.83, Hemoglobin 14.8, Hematocrit 46, Mean Corpuscular Volume 94, Mean Corpuscular Hemoglobin 31, Mean Corpuscular Hemoglobin Concent 33, Red Cell Distribution Width 14.9H, Platelet Count 146, Mean Platelet Volume 11.7, Immature Granulocyte % (Auto) 1, Neutrophils (%) (Auto) 74, Lymphocytes (%) (Auto) 16, Monocytes (%) (Auto) 9, Eosinophils (%) (Auto) 1, Basophils (%) (Auto) 0, Neutrophils # (Auto) 6.8, Lymphocytes # (Auto) 1.4, Monocytes # (Auto) 0.8, Eosinophils # (Auto) 0.1, Basophils # (Auto) 0.0, Immature Granulocyte # (Auto) 0.1 Microbiology 03/24/22 MRSA Screen - Final, Complete MRSA not isolated Assessment/Plan Assessment/Plan Assess & Plan/Chief Complaint cardiac arrest s/p CPR and cardiac cath and stentx2. continue ambulation, IS, and BT. pain seems to be controlled without opiod pain meds. Clinical Quality Measures AMI/AHF: ASA po Prior to arrival: CONCHA Burks MD Mar 26, 2022 14:36
[2022-03-26] MEDS: ACETAMINOPHEN 325 MG TABLET PO PRN (15:20)
--- NOTE | 2022-03-26 18:07 | OPERATIVE REPORT ---
DATE OF SERVICE: 03/26/2022 INDICATION FOR PROCEDURE The patient is an 86-year-old gentleman, who had a syncopal episode at home that required CPR by his family. By the time EMT arrived, they found him in atrial fibrillation, which is his chronic cardiac rhythm. Thus, it is not clear as to what transpired at the time of syncope. He does have coronary artery disease and underwent percutaneous intervention to the proximal and mid left anterior descending artery during this hospitalization. However, there is considerable distal disease as well, which is not amenable to intervention. To evaluate for any significant malignant arrhythmia, implantable loop recorder implantation was advised. Informed consent was obtained. The procedure was carried out today. DESCRIPTION OF PROCEDURE: [facility] The left prepectoral area was prepared and draped in the usual sterile fashion. Lidocaine 1% was used for local anesthesia. The tools provided with the [employer] LINQ device were used to make a subcutaneous pocket anterior to the fourth intercostal space into which the device was placed. The serial number of the device is [id number]. Job ID: [id number] DocumentID: [id number] Dictated Date: 03/26/2022 13:04:39 Wet Press Tender Date: 03/26/2022 18:07:00 Dictated By: RG OLIVEIRA MD, MA, FACP, FACC,
[2022-03-27] MEDS: ACETAMINOPHEN 325 MG TABLET PO PRN (02:43)
[2022-03-27 05:54] LABS: HEMATOCRIT 43 % (40-54); HEMOGLOBIN 14.3 g/dL (13.3-17.7); MEAN CORPUSCULAR HEMOGLOBIN 31 pg (25-34); MEAN CORPUSCULAR HGB CONC 33 g/dL (32-36); MEAN CORPUSCULAR VOLUME 93 fL (80-99); MEAN PLATELET VOLUME 11.5 fL (9.0-12.2); PLATELET COUNT 142 10^3/uL (130-400); WHITE BLOOD COUNT 8.1 10^3/uL (4.3-11.0)
[2022-03-27 06:07] LABS: ALBUMIN 3.6 GM/DL (3.2-4.5); POTASSIUM 3.6 MMOL/L (3.6-5.0)
[2022-03-27 06:08] LABS: CALCIUM 8.6 MG/DL (8.5-10.1)
[2022-03-27 06:09] LABS: TOTAL PROTEIN 5.9 GM/DL (6.4-8.2)
[2022-03-27 06:11] LABS: BILIRUBIN,TOTAL 0.9 MG/DL (0.1-1.0)
[2022-03-27 06:13] LABS: CREATININE SERUM 0.97 MG/DL (0.60-1.30)
[2022-03-27] MEDS: RT-ALBUTEROL SULF 2.5 MG/3 ML PRE-MIX VIAL INH SCH (07:19)
[2022-03-27 07:24] VITALS: BP 148/81
[2022-03-27] MEDS: meTOproloL SUCCINATE 50 MG (TOPROL XL) TAB PO SCH (08:39)
[2022-03-27] MEDS: SENNOSIDES 8.6 MG (SENOKOT) TAB PO SCH (08:39)
[2022-03-27] MEDS: ASPIRIN 81 MG CHEW (CHILDREN'S ASA) PO SCH (08:39)
[2022-03-27] MEDS: DOCUSATE SODIUM 100 MG (COLACE) CAP PO SCH (08:39)
[2022-03-27] MEDS: APIXABAN 2.5 MG (ELIQUIS) TABLET PO SCH (08:39)
[2022-03-27] MEDS: CLOPIDOGREL 75 MG (PLAVIX) TABLET PO SCH (08:39)
--- NOTE | 2022-03-27 09:16 | Progress Note - Cardiology ---
Cardiology SOAP Progress Note Subjective: Sitting up in recliner at the bedside No c/o CP, SOB, palpitations, syncope or near syncope Wants to go home today Objective: I&O/Vital Signs 03/26/22 03/27/22 03/27/22 03/27/22 22:35 00:11 04:19 07:21 Temp 36.9 36.7 Pulse 104 92 Resp 20 18 B/P (MAP) 156/87 143/92 Pulse Ox 97 98 95 96 O2 Delivery Room Air Room Air Room Air Room Air O2 Flow Rate 0.00 0.00 03/27/22 07:24 Temp 36.5 Pulse 84 Resp 18 B/P (MAP) 148/81 (103) Pulse Ox 99 O2 Delivery Room Air 03/26/22 23:59 Intake Total 2840 ml Balance 2840 ml Weight (Pounds): 185 Weight (Ounces): 0.0 Weight (Calculated Kilograms): 83.944180 Side: right Condition: DP/PT pulses palpable, extremity w/d/p Bruising: mild bruising Constitutional: AAO x 3, well-developed, well-nourished Respiratory: No accessory muscle use, No respiratory distress; chest expansion is symmetric, chest is bilaterally symmetric, lungs clear to auscultation Cardiovascular: irregularly irregular; No JVD; S1 and S2 Gastrointestional: No tender; soft, round, audible bowel sounds Extremities: no lower extremity edema bilateral Neurologic/Psychiatric: grossly intact (moves all extremities) Skin: No rash on exposed areas; other (abrasion to left koenig with scabbing, no redness or swelling noted) Results/Procedures: Labs Laboratory Tests 03/27/22 05:44: White Blood Count 8.1, Red Blood Count 4.66, Hemoglobin 14.3, Hematocrit 43, Mean Corpuscular Volume 93, Mean Corpuscular Hemoglobin 31, Mean Corpuscular Hemoglobin Concent 33, Red Cell Distribution Width 15.0H, Platelet Count 142, Mean Platelet Volume 11.5, Sodium Level 135, Potassium Level 3.6, Chloride Level 105, Carbon Dioxide Level 21, Anion Gap 9, Blood Urea Nitrogen 14, Creatinine 0.97, Estimat Glomerular Filtration Rate 77, BUN/Creatinine Ratio 14, Glucose Level 104, Calcium Level 8.6, Corrected Calcium 8.9, Total Bilirubin 0.9, Aspartate Amino Transf (AST/SGOT) 27, Alanine Aminotransferase (ALT/SGPT) 28, Alkaline Phosphatase 68, Total Protein 5.9L, Albumin 3.6 Microbiology 03/24/22 MRSA Screen - Final, Complete MRSA not isolated Laboratory Tests 03/25/22 12:00 03/26/22 04:38 03/26/22 04:58 03/27/22 05:44 A/P: Assessment: NSTEMI - treated with PCI to prox and mid LAD 03-25-22 (see cath report below) Syncope and collapse (reported pulseless per family) on 03/24/22 - Post chest compressions - ILR implanted on 03/26/22 Elevated liver enzymes of undetermined etiology Rib fractures - post chest compressions PAF, now appears to be permanent, with a controlled ventricular response at this time - OAC with Eliquis - Mild hyperthyroidism suggested on lab work of 01/21/20: TSH 0.42 (range 0.465 - 4.68); ESR 43 (range 0 - 14) CAD - Cardiac cath of 07-14-18: 90% [id number] vessel stenosis of the left anterior descending artery within a small caliber vessel to which balloon angioplasty was carried out which reduced the stenosis to less than 50%. The rest of the coronary vessels have moderate diffuse disease. There is a patent stent in the right coronary with a 50% in-stent restenosis (unchanged compared to previous study). Elevated left ventricular end-diastolic pressure. - MPI of 12/07/19: no ischemia or infarction, LVEF 48% (appeared to be higher, subjectively) - Card cath on 03/25/22: 90-85 prox and mid LAD stenosis treated with PTCA and then 2.25 x 23 mm GABRIELA, distal LAD, distal LCX, and prox RI have severe disease that is not amenable to intervention, RCA is dominant with patent prox stent with up to 50 instent and distal RCA with up to 50 stenoses, LVEDP 22 mmHg Chronic reynolds CHF - clinically compensated - Echo of 12/10/19: LVEF 60-65%, mild to mod LA and RA dilatation, mild MAC, mild AoV sclerosis w/o stenosis, mild MR, RVSP24 mmHg Hyperlipidemia. - statin tx - followed by PCP History of intermittent noncompliance of medications Umbilical hernia Suspected ANANT Lumbar spondylosis and spinal stenosis - being followed by Dr Mahan ([place], [place]) Plan: * ILR implanted on 03-26-22 * Continue DAPT and Eliquis for now. Switch later to only Plavix + Eliquis * Monitor labs closely * He would like to go home today d/t spouse being at home on [facility] * Ok to discharge home with out pt f/u Clinical Quality Measures AMI/AHF: ASA po Prior to arrival: SO Veliz Mar 27, 2022 09:16
--- NOTE | 2022-03-27 09:29 | Discharge Summary ---
Discharge Summary Hospital Course Was the Problem List Reviewed?: Yes Problems/Dx: (1) Cardiac arrest Status: Acute (2) CAD (coronary artery disease) Status: Acute (3) NSTEMI (non-ST elevation myocardial infarction) Status: Acute (4) Elevated troponin Status: Acute (5) Rib fractures Status: Acute Qualifiers: Qualified Codes: S22.42XA - Multiple fractures of ribs, left side, initial encounter for closed fracture (6) Chronic a-fib (7) CHF (congestive heart failure) Hospital Course Date of Admission: Mar 24, 2022 at 17:28 Admission Diagnosis : Family Physician/Provider: Barney Chu DO Date of Discharge: 03/27/22 Discharge Diagnosis: s/p cardiac arrest, NSTEMI s/p cath with stent Hospital Course: Minh is an 86 yo male who was admitted following an episode of cardiac arrest at home on 03/24. Pt has hx of HTN, HLD, CAD and Afib. Family was present when pt went down and started CPR immediately. Upon EMS arrival pt was found to have a pulse. Pt was brought to the ED where he was found to have elevated troponin and nondisplaced fractures of left ribs 5 [address] 6[address] CT head was unremarkable. Pt was admitted to ICU and cardiology was consulted. Pt underwent PCI for 90% stenosis of LAD on 03/25 and was started on plavix and eliquis. He was given hydrocodone for pain management. His Afib was managed with metoprolol. Following procedure pt had an uncomplicated hospital course. On 03/26 pt underwent placement of a loop recorder. This procedure was uncomplicated. On 03/27 pt was medically stable and ready for discharge. Pt has at home that is on hospice, so d/c to home was best plan for him. Labs and Pending Lab Test: Laboratory Tests 03/27/22 05:44: White Blood Count 8.1, Red Blood Count 4.66, Hemoglobin 14.3, Hematocrit 43, Mean Corpuscular Volume 93, Mean Corpuscular Hemoglobin 31, Mean Corpuscular Hemoglobin Concent 33, Red Cell Distribution Width 15.0H, Platelet Count 142, Mean Platelet Volume 11.5, Sodium Level 135, Potassium Level 3.6, Chloride Level 105, Carbon Dioxide Level 21, Anion Gap 9, Blood Urea Nitrogen 14, Creatinine 0.97, Estimat Glomerular Filtration Rate 77, BUN/Creatinine Ratio 14, Glucose Level 104, Calcium Level 8.6, Corrected Calcium 8.9, Total Bilirubin 0.9, Aspartate Amino Transf (AST/SGOT) 27, Alanine Aminotransferase (ALT/SGPT) 28, Alkaline Phosphatase 68, Total Protein 5.9L, Albumin 3.6 Microbiology 03/24/22 MRSA Screen - Final, Complete MRSA not isolated Home Meds Active Children's Aspirin (Aspirin) 81 Mg Tab.chew 81 Mg PO DAILY Metoprolol Succinate 50 Mg Tab.er.24h 50 Mg PO DAILY Clopidogrel (Clopidogrel Bisulfate) 75 Mg Tablet 75 Mg PO DAILY Reported Tums (Calcium Carbonate) 200 Mg Calcium (500 Mg) Tab.chew 200-400 Mg PO Q6H PRN Tylenol Extra Strength (Acetaminophen) 500 Mg Tablet 500-1,000 Mg PO Q8H PRN Pantoprazole Sodium 40 Mg Tablet.dr 40 Mg PO HS Potassium Chloride 10 Meq Capsule.er 10 Meq PO HS Metoprolol Succinate 100 Mg Tab.er.24h 100 Mg PO DAILY Eliquis (Apixaban) 5 Mg Tablet 5 Mg PO BID Furosemide 40 Mg Tablet 40 Mg PO DAILY Fish Oil EC 1,200 mg Softgel ([place]-3/Dha/Epa/Fish Oil) 1 Each Capsule.dr 1 Each PO DAILY Assessment/Pt Instructions PCP 1 week Discharge Planning: <30 minutes discharge planning Discharge Instructions Discharge Diet: Cardiac Diet Activity as Tolerated: Yes Discharge Physical Examination Vital Signs Vital Signs Date Time Temp Pulse Resp B/P (MAP) Pulse Ox O2 Delivery O2 Flow Rate FiO2 03/27/22 07:24 36.5 84 18 148/81 (103) 99 Room Air 03/27/22 07:21 0.00 General Appearance: No Apparent Distress, WD/WN, Chronically ill Respiratory: Lungs Clear, Normal Breath Sounds Cardiovascular: Regular Rate, Rhythm Allergies: Coded Allergies: No Known Drug Allergies (Verified , 03/09/18) Discharge Summary Date of Admission Mar 24, 2022 at 17:28 Date of Discharge Discharge Date: Mar 27, 2022 Admission Diagnosis Cardiac arrest Discharge Diagnosis PT OT Monitor pain (1) Cardiac arrest Status: Acute (2) CAD (coronary artery disease) Status: Acute (3) NSTEMI (non-ST elevation myocardial infarction) Status: Acute (4) Elevated troponin Status: Acute (5) Rib fractures Status: Acute Qualifiers: Qualified Codes: S22.42XA - Multiple fractures of ribs, left side, initial encounter for closed fracture (6) Chronic a-fib (7) CHF (congestive heart failure) Clinical Quality Measures AMI/AHF: ASA po Prior to arrival: KAREN Davenport DO Mar 27, 2022 09:29
--- NOTE | 2022-03-27 10:42 | Progress Note ---
FER [employer] MED STUDENT 03/27/22 1041: Progress Note Minh is an 86 yo male who was admitted following an episode of cardiac arrest at home on 03/24. Pt has hx of HTN, HLD, CAD and Afib. Family was present when pt went down and started CPR immediately. Upon EMS arrival pt was found to have a pulse. Pt was brought to the ED where he was found to have elevated troponin and nondisplaced fractures of left ribs 5 [address] 6. CT head was unremarkable. Pt was admitted to ICU and cardiology was consulted. Pt underwent PCI for 90% stenosis of LAD on 03/25 and was started on plavix and eliquis. He was given hydrocodone for pain management. His Afib was managed with metoprolol. Following procedure pt had an uncomplicated hospital course. On 03/26 pt underwent placement of a loop recorder. This procedure was uncomplicated. On 03/27 pt was medically stable and ready for discharge. Pt has at home that is on hospice, so d/c to home was best plan for him. MARILYNN JJ DO 03/27/225: Supervisory-Addendum Brief Verification & Attestation Participated in pt care: history, MDM, physical Personally performed: exam, history, MDM, supervision of care Care discussed with: Medical Student Procedures: n/a Results interpretation: Verified all documentation Verification and Attestation of Medical Student E/M Service A medical student performed and documented this service in my presence. I reviewed and verified all information documented by the medical student and made modifications to such information, when appropriate. I personally performed the physical exam and medical decision making. Marilynn Jj, Mar 27, 2022,21:15 FER MC[employer] MED STUDENT Mar 27, 2022 10:41 MARILYNN JJ DO Mar 27, 2022 21:15
[2022-03-27 10:47] VITALS: BP 148/81
== END 2022-03-27 10:50 | disposition home or self-care (01) | DRG 246 ==
LOC: EDUNIT# 12:11 → ER 12:12 → ICU 17:28 → 4TH 03-26 13:43
PROVIDERS: ADMIT Internal Medicine; ATTEND Internal Medicine
PROC: 027034Z Dilation of Coronary Artery, One Artery with Drug-eluting Intraluminal Device, Percutaneous Approach (ICD-10-PCS; principal; 2022-03-25)
PROC: 4A023N7 Measurement of Cardiac Sampling and Pressure, Left Heart, Percutaneous Approach (ICD-10-PCS; 2022-03-25)
PROC: B2111ZZ Fluoroscopy of Multiple Coronary Arteries using Low Osmolar Contrast (ICD-10-PCS; 2022-03-25)
PROC: 0JH602Z Insertion of Monitoring Device into Chest Subcutaneous Tissue and Fascia, Open Approach (ICD-10-PCS; 2022-03-26)
DX: I21.4 Non-ST elevation (NSTEMI) myocardial infarction (principal); I46.2 Cardiac arrest due to underlying cardiac condition; I48.21 Permanent atrial fibrillation; I48.92 Unspecified atrial flutter; I50.32 Chronic diastolic (congestive) heart failure; M96.89 Other intraoperative and postprocedural complications and disorders of the musculoskeletal system; I25.10 Atherosclerotic heart disease of native coronary artery without angina pectoris; I11.0 Hypertensive heart disease with heart failure; E78.00 Pure hypercholesterolemia, unspecified; K21.9 Gastro-esophageal reflux disease without esophagitis; M47.816 Spondylosis without myelopathy or radiculopathy, lumbar region; H91.93 Unspecified hearing loss, bilateral; Z79.01 Long term (current) use of anticoagulants; Z95.5 Presence of coronary angioplasty implant and graft; Z97.4 Presence of external hearing-aid; Z79.82 Long term (current) use of aspirin; Y84.8 Other medical procedures as the cause of abnormal reaction of the patient, or of later complication, without mention of misadventure at the time of the procedure; Y92.009 Unspecified place in unspecified non-institutional (private) residence as the place of occurrence of the external cause
CPT/HCPCS: 33285; 36415; 70450; 71045; 71250; 72125; 80053; 80061; 83735; 83874; 83880; 84484; 85025; 85027; 85610; 85730; 87081; 93005; 93041; 93306; 93458; 94640; 94760

== ENCOUNTER 2022-09-05 16:05 | Inpatient (IN) | payer MEDICARE, OTHER ==
[2022-09-05] VITALS (9 sets, daily range): BP systolic 138–173; BP diastolic 88–109
[~2022-09-05] VITALS: Ht 175.3 cm; Wt 93.2 kg
[~2022-09-05 16:05] MED LIST changes: +ACET-2267 PO; +ASPI81TA64 PO; +CALC500T7 PO; +CLOP75TA28 PO; +PANT40TA2 PO; +PANT40TA52 PO; +POTA-177 PO; -POTA10TA37 PO
[2022-09-05] MEDS ORDERED: morphine INJ 10 MG/ML 1ML (SYR OR VIAL) IVP STA ×2 (17:07→18:21)
--- NOTE | 2022-09-05 17:12 | ED Abdominal Pain ---
General Chief Complaint: Abdominal/GI Problems Stated Complaint: ABD PAIN Nursing Triage Note: ARRIVES TO ED WITH C/O ABDOMINAL PAIN THAT STARTED POST MEAL OF SPAGHETTI AND MEATBALLS AROUND 1900 LAST NIGHT AND HAS HAD LITTLE RELIEF THROUGHOUT THE DAY TODAY. STATES HE TOOK SOME LAXITIVE AT HOME THINKING HE HAD NOT HAD A STOOL FOR 2 OR 3 DAYS AND HIS USUAL MOVEMENT IS DAILY. PAIN RATING IS 8/10. PATIENT IS RESTING QUIETLY IN BED TALKING WITH HIS FAMILY WHO ARE AT BEDSIDE. Source of Information: Patient Exam Limitations: No Limitations (KAILASH GALEANA DO) History of Present Illness Date Seen by Provider: Sep 05, 2022 Time Seen by Provider: 16:50 Initial Comments 87-year-old male presents the emergency department for abdominal pain. He started midway through the evening last night and has been progressive. He rates an 8/10 constant cramping with episodes of sharp pain. No obvious aggravating or alleviating factors. He did vomit once today. He has not had a bowel movement for 2 or 3 days when he usually has daily bowel movements. No fevers or chills. No changes in urination though he does endorse that he has difficulty urinating frequently. He has had no abdominal surgeries. Family is at bedside and they state that last time he had IV contrast that his kidney function "took a hit." They are requesting the CT scan be done without contrast. (KAILASH GALEANA DO) Allergies and Home Medications Allergies Coded Allergies: No Known Drug Allergies (Verified , 09/05/22) Patient Home Medication List Home Medication List Reviewed: Yes (KAILASH GALEANA DO) Acetaminophen (Tylenol Extra Strength) 500 Mg Tablet, 500-1,000 MG PO Q8H PRN for PAIN-MILD (1-4), (Reported) Entered as Reported by: ARNULFO LONDON on 03/25/22 1341 Apixaban (Eliquis) 5 Mg Tablet, 5 MG PO BID, (Reported) Entered as Reported by: АННА HERNANDEZ on 03/24/22 1852 Aspirin (Children's Aspirin) 81 Mg Tab.chew, 81 MG PO DAILY Prescribed by: SO MARCIAL on 03/26/22 1100 Calcium Carbonate (Tums) 200 Mg Calcium (500 Mg) Tab.chew, 200-400 MG PO Q6H PRN for INDIGESTION, (Reported) Entered as Reported by: ARNULFO LONDON on 03/25/22 134 Clopidogrel Bisulfate (Clopidogrel) 75 Mg Tablet, 75 MG PO DAILY Prescribed by: SO MARCIAL on 03/26/22 1100 Furosemide (Furosemide) 40 Mg Tablet, 40 MG PO DAILY, (Reported) Entered as Reported by: NADINE CHE on 07/14/18 0732 Metoprolol Succinate (Metoprolol Succinate) 50 Mg Tab.er.24h, 50 MG PO DAILY Prescribed by: SO MARCIAL on 03/26/22 1100 Watchung-3/Dha/Epa/Fish Oil (Fish Oil EC 1,200 mg Softgel) 1 Each Capsule.dr, 1 EACH PO DAILY, (Reported) Entered as Reported by: NADINE CHE on 07/14/18 07 Pantoprazole Sodium (Pantoprazole Sodium) 40 Mg Tablet.dr, 40 MG PO HS, (Reported) Entered as Reported by: ARNULFO LONDON on 03/25/22 134 Potassium Chloride (Potassium Chloride) 10 Meq Capsule.er, 10 MEQ PO HS, (Reported) Entered as Reported by: ARNULFO LONDON on 03/25/22 134 Review of Systems Review of Systems Constitutional: no symptoms reported EENTM: No Symptoms Reported Respiratory: No Symptoms Reported Cardiovascular: No Symptoms Reported Gastrointestinal: Abdomen Distended, Abdominal Pain, Nausea, Vomiting Genitourinary: No Symptoms Reported Musculoskeletal: no symptoms reported Skin: no symptoms reported Psychiatric/Neurological: No Symptoms Reported Endocrine: No Symptoms Reported Hematologic/Lymphatic: No Symptoms Reported (KAILASH GALEANA DO) Past Bftcvnn-Oxpdaa-Ocbvdr Hx Patient Social History Tobacco Use?: No Use of E-Cig and/or Vaping dev: No Substance use?: No Alcohol Use?: Yes Alcohol type: Beer Alcohol Frequency: Daily Pt feels they are or have been: No (KAILASH GALEANA DO) Immunizations Up To Date Tetanus Booster (TDap): Less than 5yrs PED Vaccines UTD: No Influenza Vaccine Up-to-Date: No; Not Current First/Initial COVID19 Vaccinat: 2020 Second COVID19 Vaccination Corey: 2020 Third COVID19 Vaccination Date: 2020 (KAILASH GALEANA DO) Seasonal Allergies Seasonal Allergies: No (KAILASH GALEANA DO) Past Medical History Surgery/Hospitalization HX: A-FIB, HTN,HIGH CHOLESTEROL, GERD HEART STENT Surgeries: Yes (cardiac stent) Cardiac, Coronary Stent Respiratory: No Cardiac: Yes (cardiac stent, congestive heart failure) Atrial Fibrillation, Coronary Artery Disease, High Cholesterol, Hypertension Neurological: No Genitourinary: Yes Kidney Stones Gastrointestinal: Yes Abdominal Hernia, Hemorrhoids Musculoskeletal: No Endocrine: No HEENT: Yes (NOSE BLEEDS) Loss of Vision: Denies Hearing Impairment: Hearing Aide Right, Hearing Aide Left Cancer: No Psychosocial: No Integumentary: No Blood Disorders: No Adverse Reaction/Blood Tranf: No (KAILASH GALEANA Danisha JERRY) Family Medical History Reviewed Nursing Family Hx (LISSETTKAILASH Stallworth ) Completed stroke 21 FATHER G8 BROTHER FH: cancer G8 BROTHER G8 SISTER No Pertinent Family Hx (LISSETTKAILASH Danisha JERRY) Physical Exam Vital Signs Vital Signs - First Documented 09/05/22 16:10 Temp 37.0 Pulse 105 Resp 96 B/P (MAP) 173/90 (117) Pulse Ox 96 O2 Delivery Room Air (SERENE SCHULTZ MD) Vital Signs Capillary Refill : Less Than 3 Seconds (LISSETTKAILASH Stallworth Danisha JERRY) Height/Weight/BMI Height: 5'8.00" Weight: 185lbs. 0.0oz. 83.122546cz; 26.00 BMI Method:Stated General Appearance: WD/WN, no apparent distress HEENT: normal ENT inspection, pharynx normal Neck: non-tender, supple Respiratory: chest non-tender, lungs clear, normal breath sounds, no respiratory distress, no accessory muscle use Cardiovascular: regular rate, rhythm, no edema, no gallop, no JVD, no murmur Gastrointestinal: other (Hypoactive bowel sounds. Abdomen is moderately distended. Diffuse tenderness palpation with voluntary guarding. No rebound tenderness. He has a periumbilical hernia which is soft without color change. Easily reducible. Enteritis in this area.) Extremities: normal range of motion, non-tender, normal inspection, no calf tenderness, normal capillary refill Back: normal inspection, no CVA tenderness, no vertebral tenderness Neurologic/Psychiatric: alert, normal mood/affect, oriented x 3 Skin: normal color, warm/dry (KAILASH GALEANA DO) Progress/Results/Core Measures Results/Orders Lab Results Laboratory Tests Test 09/05/22 17:09 09/05/22 17:36 Range/Units White Blood Count 20.1 H 4.3-11.0 10^3/uL Red Blood Count 4.97 4.30-5.52 10^6/uL Hemoglobin 15.5 13.3-17.7 g/dL Hematocrit 46 40-54 % Mean Corpuscular Volume 93 80-99 fL Mean Corpuscular Hemoglobin 31 25-34 pg Mean Corpuscular Hemoglobin Concent 34 32-36 g/dL Red Cell Distribution Width 13.9 10.0-14.5 % Platelet Count 229 130-400 10^3/uL Mean Platelet Volume 11.2 9.0-12.2 fL Immature Granulocyte % (Auto) 1 % Neutrophils (%) (Auto) 87 H 42-75 % Lymphocytes (%) (Auto) 4 L 12-44 % Monocytes (%) (Auto) 8 0-12 % Eosinophils (%) (Auto) 1 0-10 % Basophils (%) (Auto) 0 0-10 % Neutrophils # (Auto) 17.4 H 1.8-7.8 10^3/uL Lymphocytes # (Auto) 0.8 L 1.0-4.0 10^3/uL Monocytes # (Auto) 1.6 H 0.0-1.0 10^3/uL Eosinophils # (Auto) 0.1 0.0-0.3 10^3/uL Basophils # (Auto) 0.0 0.0-0.1 10^3/uL Immature Granulocyte # (Auto) 0.1 0.0-0.1 10^3/uL Neutrophils % (Manual) 88 % Lymphocytes % (Manual) 3 % Monocytes % (Manual) 8 % Band Neutrophils 1 % Blood Morphology Comment NORMAL Sodium Level 137 135-145 MMOL/L Potassium Level 3.6 3.6-5.0 MMOL/L Chloride Level 96 L 98-107 MMOL/L Carbon Dioxide Level 22 21-32 MMOL/L Anion Gap 19 H 5-14 MMOL/L Blood Urea Nitrogen 19 H 7-18 MG/DL Creatinine 1.42 H 0.60-1.30 MG/DL Estimat Glomerular Filtration Rate 48 BUN/Creatinine Ratio 13 Glucose Level 186 H 70-105 MG/DL Calcium Level 9.9 8.5-10.1 MG/DL Corrected Calcium 8.5-10.1 MG/DL Total Bilirubin 1.4 H 0.1-1.0 MG/DL Aspartate Amino Transf (AST/SGOT) 25 5-34 U/L Alanine Aminotransferase (ALT/SGPT) 23 0-55 U/L Alkaline Phosphatase 76 40-136 U/L Total Protein 7.9 6.4-8.2 GM/DL Albumin 4.7 H 3.2-4.5 GM/DL Lipase 28 8-78 U/L Urine Color YELLOW Urine Clarity CLOUDY Urine pH 6.0 5-9 Urine Specific [place] >=1.030 1.016-1.022 Urine Protein 1+ H NEGATIVE Urine Glucose (UA) NEGATIVE NEGATIVE Urine Ketones NEGATIVE NEGATIVE Urine Nitrite NEGATIVE NEGATIVE Urine Bilirubin NEGATIVE NEGATIVE Urine Urobilinogen 0.2 < = 1.0 MG/DL Urine Leukocyte Esterase NEGATIVE NEGATIVE Urine RBC (Auto) TRACE-I H NEGATIVE Urine RBC NONE /HPF Urine WBC 2-5 /HPF Urine Crystals NONE /LPF Urine Bacteria TRACE /HPF Urine Casts NONE /LPF Urine Mucus NEGATIVE /LPF Urine Culture Indicated NO (SERENE SCHULTZ MD) My Orders Orders - SERENE SCHULTZ MD Morphine Injection (Morphine Injection (09/05/22 18:21) Piperacillin Sodium/Tazobactam (Zosyn Vi (09/05/22 19:00) (SERENE SCHULTZ MD) Medications Given in ED Current Medications Medications Dose Ordered Sig/Ivanna Route Start Time Stop Time Status Last Admin Dose Admin Ondansetron HCl 8 mg ONCE ONCE IVP 09/05/22 17:15 09/05/22 17:16 DC 09/05/22 17:18 8 MG Piperacillin Sod/ Tazobactam Sod 4.5 gm/Sodium Chloride 100 ml @ 200 mls/hr ONCE ONCE IV 09/05/22 19:00 09/05/22 19:29 DC 09/05/22 19:18 200 MLS/HR (SERENE SCHULTZ MD) Vital Signs/I&O 09/05/22 16:10 Temp 37.0 Pulse 105 Resp 96 B/P (MAP) 173/90 (117) Pulse Ox 96 O2 Delivery Room Air (SERENE SCHULTZ MD) Blood Pressure Mean: 117 Progress Progress Note : Time: 19:18 Progress Note Patient care assumed at shift change, [address] scan reveals enlarged gallbladder with inflammatory change. Patient reexamined, significant tenderness in the upper abdomen and right upper quadrant. Patient rates his pain at a "5". An additional dose of morphine is administered. Case was discussed with Dr. Encarnacion. As the patient is currently on Eliquis and Plavix would not be a candidate for surgery for [address] Encarnacion spoke with Dr. Lynne. Will admit the patient with Zosyn, pain medications. Findings and plan of care communicated to the patient and his family. He is comfortable with the plan. We will discussed with Dr. Mustafa who is on for the hospitalist service. (SERENE SCHULTZ MD) Diagnostic Imaging Diagonstic Imaging: CT Comments [facility]. [place], [place] NAME: FOREIGN AKINS [facility] REC#: [id number] PT STATUS: REG ER : 1935 PHYSICIAN: KAILASH GALEANA DO ADMIT DATE: 09/05/22/ER Signed Date of Exam:09/05/22 CT ABD/PELVIS WO(KIDNEY STONE) PROCEDURE: CT urinary tract, rule out kidney stone. TECHNIQUE: Multiple contiguous axial images were obtained through the abdomen and pelvis without the use of intravenous contrast. Auto Exposure Controls were utilized during the CT exam to meet ALARA standards for radiation dose reduction. INDICATION: Abdominal pain and vomiting. Evaluate for bowel obstruction. COMPARISON: 03/19/2017. FINDINGS: The lung bases demonstrate no evidence of pneumonia. There are linear regions of airspace opacity most compatible with atelectasis. There is no pleural or pericardial effusion. There are coronary calcifications. The liver is of low density suggesting a component of steatosis. The gallbladder is distended. There is marked inflammatory fat stranding demonstrated about the gallbladder that is suspect for an acute cholecystitis. There is no identified radiodense gallstone. There is no evidence of abnormal biliary dilatation or evidence of a radiodense stone within the common bile duct. The pancreas is mildly atrophic. The spleen demonstrates several calcified granulomas. There is no adrenal mass. There are large right-sided renal cysts without findings of hydronephrosis. These are not significantly changed from prior exam. Smaller cyst within the left kidney is also noted. There is a nonobstructing right renal calculus. The stomach demonstrates minimal fluid within the lumen. There is no gastric wall thickening. There is some stranding in the duodenum that appears to be secondary to the gallbladder process. There is no abnormal small bowel dilation evident. There are no features of bowel obstruction. There is diverticulosis. The distal colon is contracted. There are no findings of diverticulitis. There is a fat-containing periumbilical hernia. The bladder is nondistended. The prostate is mildly enlarged. There are fat-containing bilateral inguinal hernias. There is no free air, free fluid or evidence of pneumatosis. There is no abscess. There are no pathologically enlarged lymph nodes. There are atherosclerotic calcifications within a normal caliber aorta. The patient is status post prior left hip arthroplasty. There are multilevel degenerative features present within the spine but no findings of an acute osseous abnormality. IMPRESSION: 1. Marked inflammatory fat stranding surrounding a distended gallbladder suggesting acute cholecystitis. There are no radiodense stones or findings of biliary dilatation. 2. No findings of bowel obstruction. Uncomplicated diverticulosis noted. 3. No free air, free fluid or abscess. 4. Bilateral renal cysts and nonobstructing right renal calculus. 5. Atherosclerosis and coronary artery disease. 6. Periumbilical and bilateral inguinal hernias. Dictated by: Dictated on workstation # [id number] Dict: 09/05/221753 Trans: 09/05/221854 [facility] [id number] Interpreted by: NAMITA PATEL MD Electronically signed by: NAMITA PATEL MD 09/05/221854 (SERENE SCHULTZ MD) Departure Communication (Admissions) Time/Spoke to Admitting Phy: 19:[address] Mustafa; IP, step down; will do que'd orders Time/Spoke to Consulting Phy: 19:[address] Encarnacion (SERENE SCHULTZ MD) Impression Primary Impression: Acute cholecystitis Additional Impressions: History of CAD (coronary artery disease) Chronic anticoagulation Disposition: ADMITTED INPATIENT Condition: Stable Admissions Decision to Admit Reason: Admit from ER (General) Decision to Admit/Date: Sep 05, 2022 Time/Decision to Admit Time: 19:19 (SERENE SCHULTZ MD) Departure-Patient Inst. Referrals: KHUSHBU RAMON DO (PCP/Family) Primary Care Physician KAILASH GALEANA DO Sep 05, 2022 17:12 SERENE SCHULTZ MD Sep 05, 2022 19:21
[2022-09-05] MEDS ORDERED: ONDANSETRON 4 MG/2 ML (SDV) Z0FRAN IVP ONE (17:15)
[2022-09-05 17:17] LABS: ALBUMIN 4.7 GM/DL (3.2-4.5); BASOPHILS % (AUTO) 0 % (0-10); CHLORIDE 96 MMOL/L (98-107); EOSINOPHILS # (AUTO) 0.1 10^3/uL (0.0-0.3); EOSINOPHILS % (AUTO) 1 % (0-10); HEMATOCRIT 46 % (40-54); HEMOGLOBIN 15.5 g/dL (13.3-17.7); LYMPHOCYTES # (AUTO) 0.8 10^3/uL (1.0-4.0); LYMPHOCYTES % (AUTO) 4 % (12-44); MEAN CORPUSCULAR HEMOGLOBIN 31 pg (25-34); MEAN CORPUSCULAR HGB CONC 34 g/dL (32-36); MEAN CORPUSCULAR VOLUME 93 fL (80-99); MEAN PLATELET VOLUME 11.2 fL (9.0-12.2); MONOCYTES # (AUTO) 1.6 10^3/uL (0.0-1.0); MONOCYTES % (AUTO) 8 % (0-12); NEUTROPHILS # (AUTO) 17.4 10^3/uL (1.8-7.8); NEUTROPHILS % (AUTO) 87 % (42-75); PLATELET COUNT 229 10^3/uL (130-400); POTASSIUM 3.6 MMOL/L (3.6-5.0); SODIUM 137 MMOL/L (135-145); WHITE BLOOD COUNT 20.1 10^3/uL (4.3-11.0)
[2022-09-05 17:18] LABS: CALCIUM 9.9 MG/DL (8.5-10.1)
[2022-09-05] MEDS: NS IV 500 ML 500 ML IV SCH (17:18)
[2022-09-05 17:19] LABS: GLUCOSE 186 MG/DL (70-105); TOTAL PROTEIN 7.9 GM/DL (6.4-8.2)
[2022-09-05 17:20] LABS: CARBON DIOXIDE 22 MMOL/L (21-32)
[2022-09-05 17:21] LABS: BILIRUBIN,TOTAL 1.4 MG/DL (0.1-1.0)
[2022-09-05 17:23] LABS: ALKALINE PHOSPHATASE 76 U/L (40-136); CREATININE SERUM 1.42 MG/DL (0.60-1.30); GFR ESTIMATED 48
[2022-09-05 17:24] LABS: BUN/CREATININE RATIO 13
[2022-09-05 17:26] LABS: ALANINE AMINOTRANSFERASE 23 U/L (0-55); LIPASE 28 U/L (8-78)
[2022-09-05 17:39] LABS: BILIRUBIN,URINE NEGATIVE (NEGATIVE); CLARITY,URINE CLOUDY; COLOR,URINE YELLOW; GLUCOSE, URINE (UA) NEGATIVE (NEGATIVE); KETONES,URINE NEGATIVE (NEGATIVE); LEUKOCYTE ESTERASE ,URINE NEGATIVE (NEGATIVE); NITRITE,URINE NEGATIVE (NEGATIVE); PROTEIN,URINE 1+ (NEGATIVE)
[2022-09-05 17:57] LABS: BACTERIA,URINE TRACE /HPF
[2022-09-05 18:00] LABS: BAND NEUTROPHILS 1 %; LYMPHOCYTES % (MANUAL) 3 %; MONOCYTES % (MANUAL) 8 %; NEUTROPHILS % (MANUAL) 88 %; RBC MORPH NORMAL
--- NOTE | 2022-09-05 18:09 | Diagnostic Imaging Report ---
PROCEDURE: CT urinary tract, rule out kidney stone. TECHNIQUE: Multiple contiguous axial images were obtained through the abdomen and pelvis without the use of intravenous contrast. Auto Exposure Controls were utilized during the CT exam to meet ALARA standards for radiation dose reduction. INDICATION: Abdominal pain and vomiting. Evaluate for bowel obstruction. COMPARISON: 03/19/2017. FINDINGS: The lung bases demonstrate no evidence of pneumonia. There are linear regions of airspace opacity most compatible with atelectasis. There is no pleural or pericardial effusion. There are coronary calcifications. The liver is of low density suggesting a component of steatosis. The gallbladder is distended. There is marked inflammatory fat stranding demonstrated about the gallbladder that is suspect for an acute cholecystitis. There is no identified radiodense gallstone. There is no evidence of abnormal biliary dilatation or evidence of a radiodense stone within the common bile duct. The pancreas is mildly atrophic. The spleen demonstrates several calcified granulomas. There is no adrenal mass. There are large right-sided renal cysts without findings of hydronephrosis. These are not significantly changed from prior exam. Smaller cyst within the left kidney is also noted. There is a nonobstructing right renal calculus. The stomach demonstrates minimal fluid within the lumen. There is no gastric wall thickening. There is some stranding in the duodenum that appears to be secondary to the gallbladder process. There is no abnormal small bowel dilation evident. There are no features of bowel obstruction. There is diverticulosis. The distal colon is contracted. There are no findings of diverticulitis. There is a fat-containing periumbilical hernia. The bladder is nondistended. The prostate is mildly enlarged. There are fat-containing bilateral inguinal hernias. There is no free air, free fluid or evidence of pneumatosis. There is no abscess. There are no pathologically enlarged lymph nodes. There are atherosclerotic calcifications within a normal caliber aorta. The patient is status post prior left hip arthroplasty. There are multilevel degenerative features present within the spine but no findings of an acute osseous abnormality. IMPRESSION: 1. Marked inflammatory fat stranding surrounding a distended gallbladder suggesting acute cholecystitis. There are no radiodense stones or findings of biliary dilatation. 2. No findings of bowel obstruction. Uncomplicated diverticulosis noted. 3. No free air, free fluid or abscess. 4. Bilateral renal cysts and nonobstructing right renal calculus. 5. Atherosclerosis and coronary artery disease. 6. Periumbilical and bilateral inguinal hernias. Dictated by: Dictated on workstation # [id number]
[2022-09-05] MEDS ORDERED: PIPERACILLIN SODIUM/TAZOBACTAM 4.5 GM in NS (IVPB) 100 ML IV ONE (19:00)
--- NOTE | 2022-09-05 20:12 | Tele-ICU Progress Note ---
Subjective Date Seen by a Provider: Sep 05, 2022 Subjective/Events-last exam This virtual visit was conducted using real time audio/video. Thank you for asking us to see this patient for acute cholecystitis. Recent events: Will have surgery after 48 hours off Plavix, Eliquis. PMH:CAD/stent, Afib, HTN, HL. SH: smoking history: N FH: Non-contributory ROS: as in HPI PE: VSS. O2 sat 96% on RA. HEENT: No obvious masses, adenopathy or JVD. Chest: clear to auscultation. CV: S1 S2 No murmur or added sounds. Abd: tender, guarding. Bowel sounds diminished. : Unremarkable. Hassan N. SALES SYSTEMS ENGINEER/psychiatric: Grossly intact. No obvious focal findings. Extremities: No edema. Capillary refill < 3 seconds. Skin: unremarkable. Results: Elevated . Decreased . BG: . CXR: . Available chart/ vitals / labs / images reviewed. Video assessment done using teleICU camera, rest of exam as per RN. A/P: Critical Care: critically ill patient. Cont. abx, PRN Zofran, MSO4. Plavix, Eliquis held. Discussed with AMANDA Joshua. Asked RN to reach out to eICU if any questions or concerns later. Time spent with patient/coordination of care with other health professionals (mins): 15 Sepsis Event Evaluation Height, Weight, BMI Height: 5'8.00" Weight: 185lbs. 0.0oz. 83.645183xo; 26.00 BMI Method:Stated Exam Exam Patient acknowledged, consented, and participated in this virtual visit which was conducted using real time audio/video Vital Signs Date Time Temp Pulse Resp B/P (MAP) Pulse Ox O2 Delivery O2 Flow Rate FiO2 09/05/22 16:10 37.0 105 96 173/90 (117) 96 Room Air Height & Weight Height: 5'8.00" Weight: 185lbs. 0.0oz. 83.878084tz; 26.00 BMI Method:Stated General Appearance: Thin Capillary Refill: Less Than 3 Seconds Peripheral Pulses: 1+ Dorsalis Pedis (R), 1+ Left Dors-Pedis (L) (See free text.) Gastrointestinal: other (Hypoactive bowel sounds. Abdomen is moderately distended. Diffuse tenderness palpation with voluntary guarding. No rebound tenderness. He has a periumbilical hernia which is soft without color change. Easily reducible. Enteritis in this area.) Results Lab Laboratory Tests 09/05/22 17:09 Assessment/Plan Assessment/Plan See free text. Critical Care: Critically Ill Patient ARISTIDES SLADE MD Sep 05, 2022 20:12
[2022-09-05] MEDS ORDERED: ONDANSETRON 4 MG (ZOFRAN) ORAL DISSOLVE TAB PO PRN (22:00)
[2022-09-05] MEDS ORDERED: LORazepam 0.5 MG (ATIVAN) TABLET PO PRN (22:00)
[2022-09-05] MEDS ORDERED: cloNIDine 0.1 MG (CATAPRES) TAB PO PRN (22:00)
[2022-09-05] MEDS ORDERED: LORazepam INJ 2 MG/ML (ATIVAN) VIAL IVP PRN (22:00)
[2022-09-05] MEDS ORDERED: diphenhydrAMINE 25 MG TAB (BENADRYL) PO PRN (22:00)
[2022-09-05] MEDS ORDERED: diphenhydrAMINE 50 MG/ML INJ (BENADRYL) IVP PRN (22:00)
[2022-09-05] MEDS ORDERED: ACETAMINOPHEN 325 MG TABLET PO PRN (22:00)
[2022-09-05] MEDS ORDERED: ONDANSETRON 4 MG/2 ML (SDV) Z0FRAN IV PRN (22:00)
[2022-09-05] MEDS ORDERED: NS IV 500 ML 500 ML IV PRN (22:00)
[2022-09-05] MEDS ORDERED: MILK OF MAGNESIA 400 MG/5 ML 30 ML UDC PO PRN (22:00)
[2022-09-05] MEDS ORDERED: CALCIUM CARBONATE 500 MG (TUMS) TAB.CHEW PO PRN (22:00)
[2022-09-05] MEDS ORDERED: LACTULOSE SYRUP 10GM/15ML (ENULOSE) 30ML UDC PO PRN (22:00)
[2022-09-05] MEDS ORDERED: ENOXAPARIN 100 MG/1 ML (LOVENOX) SYR SC SCH (22:00)
[2022-09-05] MEDS ORDERED: polyethylene glycoL POWDER 17 GM (MIRALAX) PACK PO PRN (22:00)
[2022-09-05] MEDS ORDERED: ANTACID SUSP 30 ML UDC (MYLANTA) PO PRN (22:00)
[2022-09-05] MEDS ORDERED: BISACODYL 10 MG SUPP (DULCOLAX) PR PRN (22:00)
[2022-09-05] MEDS ORDERED: MELATONIN 3 MG TABLET PO PRN (22:15)
[2022-09-05] MEDS: PIPERACILLIN SODIUM/TAZOBACTAM 4.5 GM in NS (IVPB) 100 ML IV SCH (22:24)
[2022-09-05] MEDS ORDERED: NS IV 1000 ML 1,000 ML ONE (22:30)
[2022-09-05] MEDS: NS IV 1000 ML 1,000 ML IV SCH (22:36)
[2022-09-06] VITALS (11 sets, daily range): BP systolic 118–162; BP diastolic 65–107
[2022-09-06] MEDS ORDERED: RT-ALBUTEROL SULF 2.5 MG/3 ML PRE-MIX VIAL INH PRN
--- NOTE | 2022-09-06 04:59 | History & Physical ---
History of Present Illness HPI/Chief Complaint Chief complaint: Acute cholecystitis with A. fib with RVR HPI: This is an 87-year-old male clinic patient of Dr. Chu who has a past medical history of atrial fibrillation with hypertension and chronic kidney disease who presented to the ER with abdominal pain found to have findings consistent with cholecystitis. Decision was made to place him in cardiac stepdown unit/ICU for Cardizem drip and broad-spectrum antibiotics in order to undergo cholecystectomy on Friday. Currently the abdominal pain has returned and he has received some pain medication that is helping. Hospital course from March 2022: Minh is an 86 yo male who was admitted following an episode of cardiac arrest at home on 03/24. Pt has hx of HTN, HLD, CAD and Afib. Family was present when pt went down and started CPR immediately. Upon EMS arrival pt was found to have a pulse. Pt was brought to the ED where he was found to have elevated troponin and nondisplaced fractures of left ribs 5 [address] 6[address] CT head was unremarkable. Pt was admitted to ICU and cardiology was consulted. Pt underwent PCI for 90% stenosis of LAD on 03/25 and was started on plavix and eliquis. He was given hydrocodone for pain management. His Afib was managed with metoprolol. Following procedure pt had an uncomplicated hospital course. On 03/26 pt underwent placement of a loop recorder. This procedure was uncomplicated. On 03/27 pt was medically stable and ready for discharge. Pt has at home that is on hospice, so d/c to home was best plan for him. Source: patient Exam Limitations: no limitations Date Seen 09/06/22 Time Seen by a Provider: 11:00 Attending Physician Barney Chu DO PCP Admitting Physician: Marilynn Mustafa DO Attending Physician: Marilynn Mustafa DO Referring Physician Date of Admission Sep 05, 2022 at 19:41 Home Medications & Allergies Home Medications Reviewed patient Home Medication Reconciliation performed by pharmacy medication reconciliations coroner transport technician and/or nursing. Patients Allergies have been reviewed. Allergies Allergies Coded Allergies No Known Drug Allergies (Uifxdnxj76/22/22) Past Eylejhg-Konkje-Inahlt Hx Past Med/Social Hx: Reviewed Nursing Past Med/Soc Hx, Reviewed and Corrections made Patient Social History Marrital Status: Employed/Student: retired Alcohol Use: Occasionally Uses Alcohol Beverage of Choice: Beer Smoking Status: Never a Smoker 2nd Hand Smoke Exposure: No Recent Hopitalizations: No Recent Infectious Disease Expo: No Immunizations Up To Date Tetanus Booster (TDap): Less than 5yrs Pediatric: No Seasonal Allergies Seasonal Allergies: No Past Medical History Surgeries: Cardiac, Coronary Stent Cardiac: Atrial Fibrillation, Coronary Artery Disease, High Cholesterol, Hypertension Genitourinary: Kidney Stones Gastrointestinal: Abdominal Hernia, Hemorrhoids Loss of Vision: Denies Hearing Impairment: Hearing Aide Right, Hearing Aide Left History of Blood Disorders: No Adverse Reaction to Blood Martínez: No Family History Reviewed Nursing Family Hx Completed stroke 19 FATHER G8 BROTHER FH: cancer G8 BROTHER G8 SISTER No Pertinent Family Hx Review of Systems Constitutional: see HPI, malaise, weakness EENTM: no symptoms reported Respiratory: no symptoms reported Cardiovascular: palpitations Gastrointestinal: abdominal pain, nausea, vomiting Genitourinary: no symptoms reported Musculoskeletal: no symptoms reported Skin: no symptoms reported Psychiatric/Neurological: No Symptoms Reported Physical Exam Physical Exam Vital Signs Vital Signs - First Documented 09/05/22 09/05/22 09/05/22 16:10 20:23 22:20 Temp 37.0 Pulse 105 Resp 96 B/P (MAP) 173/90 (117) Pulse Ox 96 O2 Delivery Room Air O2 Flow Rate 2.00 FiO2 21 Capillary Refill : Less Than 3 Seconds Height, Weight, BMI Height: 5'8.00" Weight: 185lbs. 0.0oz. 83.200343uy; 26.48 BMI Method:Stated General Appearance: Anxious, Chronically ill, Mild Distress, Thin Eyes: Bilateral Eye Normal Inspection, Bilateral Eye PERRL HEENT: PERRL/EOMI, Normal ENT Inspection, Pharynx Normal Neck: Full Range of Motion, Normal Inspection, Non Tender, Supple, Carotid Bruit Respiratory: Chest Non Tender, Lungs Clear, Normal Breath Sounds, No Accessory Muscle Use, No Respiratory Distress Cardiovascular: No Edema, No Gallop, No JVD, No Murmur, Normal Peripheral Pulses, Irregularly Irregular, Tachycardia Gastrointestinal: Normal Bowel Sounds, No Organomegaly, No Pulsatile Mass, Non Tender, Soft Back: Normal Inspection, No CVA Tenderness, No Vertebral Tenderness Extremity: Normal Capillary Refill, Normal Inspection, Normal Range of Motion, Non Tender, No Calf Tenderness, No Pedal Edema Neurologic/Psychiatric: Alert, Oriented x3, No Motor/Sensory Deficits, Normal Mood/Affect, inventory control/shipping receiving II-XII Norm as Tested Skin: Normal Color, Warm/Dry Lymphatic: No Adenopathy Results Results/Procedures Labs Laboratory Tests 09/05/22 17:09 09/06/22 04:32 09/07/22 04:13 Patient resulted labs reviewed. Assessment/Plan Admission Diagnosis Assessment: Acute cholecystitis A. fib with RVR History of chronic atrial fibrillation CHF Hypertension CAD Status post cardiac arrest at home March 2022 Plan: Broad-spectrum antibiotics ICU Cardiology General surgery Admission Status: Inpatient Order (span 2 midnights) Reason for Inpatient Admission: Cholecystitis with A. fib with RVR MARILYNN MUSTAFA DO Sep 06, 2022 04:59
[2022-09-06] MEDS: PIPERACILLIN SODIUM/TAZOBACTAM 4.5 GM in NS (IVPB) 100 ML IV SCH ×3 (05:28→21:02)
[2022-09-06 05:30] LABS: BASOPHILS % (AUTO) 0 % (0-10); EOSINOPHILS # (AUTO) 0.2 10^3/uL (0.0-0.3); EOSINOPHILS % (AUTO) 1 % (0-10); HEMATOCRIT 45 % (40-54); HEMOGLOBIN 14.7 g/dL (13.3-17.7); LYMPHOCYTES # (AUTO) 1.3 10^3/uL (1.0-4.0); LYMPHOCYTES % (AUTO) 6 % (12-44); MEAN CORPUSCULAR HEMOGLOBIN 31 pg (25-34); MEAN CORPUSCULAR HGB CONC 33 g/dL (32-36); MEAN CORPUSCULAR VOLUME 93 fL (80-99); MEAN PLATELET VOLUME 11.6 fL (9.0-12.2); MONOCYTES # (AUTO) 2.3 10^3/uL (0.0-1.0); MONOCYTES % (AUTO) 11 % (0-12); NEUTROPHILS # (AUTO) 17.2 10^3/uL (1.8-7.8); NEUTROPHILS % (AUTO) 81 % (42-75); PLATELET COUNT 181 10^3/uL (130-400); WHITE BLOOD COUNT 21.2 10^3/uL (4.3-11.0)
[2022-09-06 05:49] LABS: POTASSIUM 3.9 MMOL/L (3.6-5.0)
[2022-09-06 05:50] LABS: CALCIUM 9.4 MG/DL (8.5-10.1)
[2022-09-06] MEDS: POTASSIUM CL 10MEQ/50ML IVPB 50 ML IV SCH (05:50)
[2022-09-06 05:53] LABS: BILIRUBIN,TOTAL 2.5 MG/DL (0.1-1.0)
[2022-09-06 05:55] LABS: CREATININE SERUM 1.36 MG/DL (0.60-1.30)
[2022-09-06 05:58] LABS: MAGNESIUM 2.1 MG/DL (1.6-2.4)
[2022-09-06] MEDS: KCL 20 MEQ TAB (K-DUR) PO SCH (06:11)
[2022-09-06] MEDS: MAGNESIUM 1 GM/100 ML IVPB 100 ML IV SCH (06:11)
[2022-09-06] MEDS ORDERED: FLU QUAD HIGH DOSE 240 MCG/0.7 ML 2022-23 (FLUZONE) IM ONE (07:00)
[2022-09-06] MEDS: RT-ALBUTEROL SULF 2.5 MG/3 ML PRE-MIX VIAL INH SCH ×2 (07:24→21:56)
--- NOTE | 2022-09-06 07:27 | Consultation - Surgery ---
LINETTE FONSECA 09/06/2227: History of Present Illness History of Present Illness Patient Consulted On(kyree/time) 09/06/22 07:22 Date Seen by Provider: Sep 06, 2022 Time Seen by Provider: 07:22 History of Present Illness Surgery Consultation: Acute Cholecystitis Minh Kraft is an 87yo male that has been having abdominal pain for the past two days. Pt felt worse last night and presented to the ED. Upon admission pt received an abdominal CT which showed fat stranding with a distended gallbladder indicating possible acute cholecysitis, periumbilical hernia and b/l inguinal hernia, and CAD w/ atherosclerosis. Today pt states he is having d iffuse sharp abdominal pain affected his sleep last night. Pt states the pain is constant with palpation making the pain worse. Pt's non-radiating pain is currently a 2-3/10, but was a 8-9/10 upon admission. Pt states that he comited two days ago and is experiencing constipation. Pt hasn't had a bowel moenment in the last 2-3 days. Pt wasn't a surgical candidate yesterday due to being on Eliquis and Plavix, so any surgical procedures would have to wait 48hr from yesterday evening. Labs show an elevated white count at 21.2 which is slightly elevated from yesterday at 20.1. Currently pt's Eliquis and Plavis was discontinued, and he was placed on Lovenox. Allergies and Home Medications Allergies Coded Allergies: No Known Drug Allergies (Verified , 09/05/22) Patient Home Medication List Apixaban (Eliquis) 5 Mg Tablet, 5 MG PO BID, (Reported) Entered as Reported by: АННА HERNANDEZ on 03/24/221851 Last Action: Reviewed Clopidogrel Bisulfate (Clopidogrel) 75 Mg Tablet, 75 MG PO DAILY, (Reported) Entered as Reported by: ARNULFO LONDON on 09/06/22 124 Last Action: Reviewed Furosemide (Furosemide) 40 Mg Tablet, 40 MG PO DAILY, (Reported) Entered as Reported by: NADINE CHE on 07/14/18 0732 Last Action: Reviewed Metoprolol Succinate (Metoprolol Succinate) 50 Mg Tab.er.24h, 50 MG PO BID, (Reported) Entered as Reported by: ARNULFO LONDON on 09/06/22 1244 Last Action: Reviewed Mineral-3/Dha/Epa/Fish Oil (Fish Oil EC 1,200 mg Softgel) 1 Each Capsule.dr, 1 EACH PO DAILY, (Reported) Entered as Reported by: NADINE CHE on 07/14/18 0732 Last Action: Reviewed Pantoprazole Sodium (Pantoprazole Sodium) 40 Mg Tablet.dr, 40 MG PO HS, (Reported) Entered as Reported by: ARNULFO LONDON on 03/25/22 134 Last Action: Reviewed Potassium Chloride (Potassium Chloride) 10 Meq Capsule.er, 10 MEQ PO HS, (Reported) Entered as Reported by: ARNULFO LONDON on 03/25/22 134 Last Action: Reviewed Discontinued Medications Acetaminophen (Tylenol Extra Strength) 500 Mg Tablet, 500-1,000 MG PO Q8H PRN for PAIN-MILD (1-4), (Reported) Discontinued Reason: No Longer Taking Entered as Reported by: ARNULFO LONDON on 03/25/221340 Last Action: Discontinued Calcium Carbonate (Tums) 200 Mg Calcium (500 Mg) Tab.chew, 200-400 MG PO Q6H PRN for INDIGESTION, (Reported) Discontinued Reason: No Longer Taking Entered as Reported by: ARNULFO LONDON on 03/25/221340 Last Action: Discontinued Clopidogrel Bisulfate (Clopidogrel) 75 Mg Tablet, 75 MG PO DAILY Discontinued Reason: Duplicate Order Prescribed by: SO MARCIAL on 03/26/22 1100 Last Action: Discontinued Metoprolol Succinate (Metoprolol Succinate) 50 Mg Tab.er.24h, 50 MG PO DAILY Discontinued Reason: Duplicate Order Prescribed by: SO MARCIAL on 03/26/22 1100 Last Action: Discontinued Past Pmnscwo-Udbxyq-Efriuu Hx Patient Social History Smoking Status: Never a Smoker 2nd Hand Smoke Exposure: No Recent Hopitalizations: No Alcohol Use?: Yes Have you traveled recently?: No Immunizations Up To Date Tetanus Booster (TDap): Less than 5yrs PED Vaccines UTD: No Seasonal Allergies Seasonal Allergies: No Surgeries History of Surgeries: Yes (cardiac stent) Surgeries: Cardiac, Coronary Stent Respiratory History of Respiratory Disorde: No Cardiovascular History of Cardiac Disorders: Yes (cardiac stent, congestive heart failure) Cardiac Disorders: Atrial Fibrillation, Coronary Artery Disease, High Cholesterol, Hypertension Neurological History of Neurological Disord: No Genitourinary History of Genitourinary Disor: Yes Genitourinary Disorders: Kidney Stones Gastrointestinal History of Gastrointestinal Di: Yes Gastrointestinal Disorders: Abdominal Hernia, Hemorrhoids Musculoskeletal History of Musculoskeletal Dis: No Endocrine History of Endocrine Disorders: No HEENT History of HEENT Disorders: Yes (NOSE BLEEDS) Loss of Vision: Denies Hearing Impairment: Hearing Aide Right, Hearing Aide Left Cancer History of Cancer: No Psychosocial History of Psychiatric Problem: No Integumentary History of Skin or Integumenta: No Blood Transfusions History of Blood Disorders: No Adverse Reaction to a Blood Tr: No Family Medical History Significant Family History: No Pertinent Family Hx (Denies HTN and DM FHx) Family Medial History: Completed stroke 19 FATHER G8 BROTHER FH: cancer G8 BROTHER G8 SISTER Review of Systems-General Constitutional: No chills, No fever EENTM: No blurred vision, No eye pain, No vision loss Cardiovascular: No chest pain, No edema, No palpitations Gastrointestinal: abdominal pain (Diffuse Abdominal Pain), constipation; No diarrhea, No nausea, No vomiting Genitourinary: No dysuria, No frequency Psychiatric/Neurological: Denies Headache, Denies Numbness, Denies Paresthesia, Denies Tingling Physical Exam-General Problems Physical Exam Vital Signs Vital Signs - First Documented 09/05/22 09/05/22 09/05/22 16:10 20:23 22:20 Temp 37.0 Pulse 105 Resp 96 B/P (MAP) 173/90 (117) Pulse Ox 96 O2 Delivery Room Air O2 Flow Rate 2.00 FiO2 21 Capillary Refill : Less Than 3 Seconds General Appearance: WD/WN, mild distress HEENT: PERRL/EOMI Neck: non-tender, supple Respiratory: chest non-tender, lungs clear, normal breath sounds Cardiovascular: regular rate, rhythm, no edema, no gallop, no murmur Peripheral Pulses: 2+ Radial Pulses (R), 2+ Radial Pulses (L) Gastrointestinal: normal bowel sounds, soft, guarding, tenderness Rectal: deferred Extremities: normal range of motion, non-tender, no pedal edema, no calf tenderness Neurologic/Psychiatric: alert, normal mood/affect, oriented x 3 Skin: warm/dry, ecchymosis Data Review Labs Laboratory Tests 09/05/22 17:09: White Blood Count 20.1H, Red Blood Count 4.97, Hemoglobin 15.5, Hematocrit 46, Mean Corpuscular Volume 93, Mean Corpuscular Hemoglobin 31, Mean Corpuscular Hemoglobin Concent 34, Red Cell Distribution Width 13.9, Platelet Count 229, Mean Platelet Volume 11.2, Immature Granulocyte % (Auto) 1, Neutrophils (%) (Auto) 87H, Lymphocytes (%) (Auto) 4L, Monocytes (%) (Auto) 8, Eosinophils (%) (Auto) 1, Basophils (%) (Auto) 0, Neutrophils # (Auto) 17.4H, Lymphocytes # (Auto) 0.8L, Monocytes # (Auto) 1.6H, Eosinophils # (Auto) 0.1, Basophils # (Auto) 0.0, Immature Granulocyte # (Auto) 0.1, Neutrophils % (Manual) 88, Lymphocytes % (Manual) 3, Monocytes % (Manual) 8, Band Neutrophils 1, Blood Morphology Comment NORMAL, Sodium Level 137, Potassium Level 3.6, Chloride Level 96L, Carbon Dioxide Level 22, Anion Gap 19H, Blood Urea Nitrogen 19H, Creatinine 1.42H, Estimat Glomerular Filtration Rate 48, BUN/Creatinine Ratio 13, Glucose Level 186H, Calcium Level 9.9, Corrected Calcium , Total Bilirubin 1.4H, Aspartate Amino Transf (AST/SGOT) 25, Alanine Aminotransferase (ALT/SGPT) 23, Alkaline Phosphatase 76, Total Protein 7.9, Albumin 4.7H, Lipase 28 09/05/22 17:36: Urine Color YELLOW, Urine Clarity CLOUDY, Urine pH 6.0, Urine Specific [place] >=1.030, Urine Protein 1+H, Urine Glucose (UA) NEGATIVE, Urine Ketones NEGATIVE, Urine Nitrite NEGATIVE, Urine Bilirubin NEGATIVE, Urine Urobilinogen 0.2, Urine Leukocyte Esterase NEGATIVE, Urine RBC (Auto) TRACE-IH, Urine RBC NONE, Urine WBC 2-5, Urine Crystals NONE, Urine Bacteria TRACE, Urine Casts NONE, Urine Mucus NEGATIVE, Urine Culture Indicated NO 09/06/22 04:32: White Blood Count 21.2H, Red Blood Count 4.78, Hemoglobin 14.7, Hematocrit 45, Mean Corpuscular Volume 93, Mean Corpuscular Hemoglobin 31, Mean Corpuscular Hemoglobin Concent 33, Red Cell Distribution Width 13.9, Platelet Count 181, Mean Platelet Volume 11.6, Immature Granulocyte % (Auto) 1, Neutrophils (%) (Auto) 81H, Lymphocytes (%) (Auto) 6L, Monocytes (%) (Auto) 11, Eosinophils (%) (Auto) 1, Basophils (%) (Auto) 0, Neutrophils # (Auto) 17.2H, Lymphocytes # (Auto) 1.3, Monocytes # (Auto) 2.3H, Eosinophils # (Auto) 0.2, Basophils # (Auto) 0.0, Immature Granulocyte # (Auto) 0.2H, Sodium Level 136, Potassium Level 3.9, Chloride Level 98, Carbon Dioxide Level 27, Anion Gap 11, Blood Urea Nitrogen 20H, Creatinine 1.36H, Estimat Glomerular Filtration Rate 51, BUN/Cre atinine Ratio 15, Glucose Level 137H, Calcium Level 9.4, Corrected Calcium 9.4, Total Bilirubin 2.5H, Aspartate Amino Transf (AST/SGOT) 172H, Alanine Aminotransferase (ALT/SGPT) 97H, Alkaline Phosphatase 96, Total Protein 7.0, Albumin 4.0, Magnesium Level 2.[address] ABD/PELVIS WO(KIDNEY STONE) PROCEDURE: CT urinary tract, rule out kidney stone. TECHNIQUE: Multiple contiguous axial images were obtained through the abdomen and pelvis without the use of intravenous contrast. Auto Exposure Controls were utilized during the CT exam to meet ALARA standards for radiation dose reduction. INDICATION: Abdominal pain and vomiting. Evaluate for bowel obstruction. COMPARISON: 03/19/2017. FINDINGS: The lung bases demonstrate no evidence of pneumonia. There are linear regions of airspace opacity most compatible with atelectasis. There is no pleural or pericardial effusion. There are coronary calcifications. The liver is of low density suggesting a component of steatosis. The gallbladder is distended. There is marked inflammatory fat stranding demonstrated about the gallbladder that is suspect for an acute cholecystitis. There is no identified radiodense gallstone. There is no evidence of abnormal biliary dilatation or evidence of a radiodense stone within the common bile duct. The pancreas is mildly atrophic. The spleen demonstrates several calcified granulomas. There is no adrenal mass. There are large right-sided renal cysts without findings of hydronephrosis. These are not significantly changed from prior exam. Smaller cyst within the left kidney is also noted. There is a nonobstructing right renal calculus. The stomach demonstrates minimal fluid within the lumen. There is no gastric wall thickening. There is some stranding in the duodenum that appears to be secondary to the gallbladder process. There is no abnormal small bowel dilation evident. There are no features of bowel obstruction. There is diverticulosis. The distal colon is contracted. There are no findings of diverticulitis. There is a fat-containing periumbilical hernia. The bladder is nondistended. The prostate is mildly enlarged. There are fat-containing bilateral inguinal hernias. There is no free air, free fluid or evidence of pneumatosis. There is no abscess. There are no pathologically enlarged lymph nodes. There are atherosclerotic calcifications within a normal caliber aorta. The patient is status post prior left hip arthroplasty. There are multilevel degenerative features present within the spine but no findings of an acute osseous abnormality. IMPRESSION: 1. Marked inflammatory fat stranding surrounding a distended gallbladder suggesting acute cholecystitis. There are no radiodense stones or findings of biliary dilatation. 2. No findings of bowel obstruction. Uncomplicated diverticulosis noted. 3. No free air, free fluid or abscess. 4. Bilateral renal cysts and nonobstructing right renal calculus. 5. Atherosclerosis and coronary artery disease. 6. Periumbilical and bilateral inguinal hernias. Assessment/Plan Assessment/Plan Assessment/Plan Diffuse Abdominal Pain secondary to Acute Cholecystitis Elevated WBC secondary to Acute Cholecystitis Tramsaminitis Consider RUQ Ultrasound Consider Continuing Lovenox and Abx; Continue monitoring WBC Consider Continuing Fluids and monitoring LFT's Supportive Care HEENA BERRY DO 09/06/22 1325: History of Present Illness History of Present Illness History of Present Illness Consult requested by Dr. Mustafa for acute cholecystitis. Patient is an 87 year old male who has been having ruq abdominal pain since last . COmes and goes but more constant so went to ED last night. [place] was 8-9/10. Pain medication helping which is about 2/10 now. Patient unsure if anything makes it worse. No radiation of pain. Had wbc 21.2. Patient in March had cardiac arrest and had to have stents placed. Currently on Elqius and Plavix. Last dose yesterday morning. Is Moderate to high risk from cardiology. Patient currently on clear liquids. Denies n/v fever sweats chills shortness of breath or chest pain. Had ct scan consistent with acute cholecystitis, umbilical hernia and b/l inguinal hernia. Allergies and Home Medications Allergies Coded Allergies: No Known Drug Allergies (Verified , 09/05/22) Patient Home Medication List Home Medication List Reviewed: Yes Apixaban (Eliquis) 5 Mg Tablet, 5 MG PO BID, (Reported) Entered as Reported by: АННА HERNANDEZ on 03/24/221851 Last Action: Reviewed Clopidogrel Bisulfate (Clopidogrel) 75 Mg Tablet, 75 MG PO DAILY, (Reported) Entered as Reported by: ARNULFO LONDON on 09/06/22 124 Last Action: Reviewed Furosemide (Furosemide) 40 Mg Tablet, 40 MG PO DAILY, (Reported) Entered as Reported by: NADINE CHE on 07/14/18731 Last Action: Reviewed Metoprolol Succinate (Metoprolol Succinate) 50 Mg Tab.er.24h, 50 MG PO BID, (Reported) Entered as Reported by: ARNULFO LONDON on 09/06/221243 Last Action: Reviewed Mineral-3/Dha/Epa/Fish Oil (Fish Oil EC 1,200 mg Softgel) 1 Each Capsule.dr, 1 EACH PO DAILY, (Reported) Entered as Reported by: NADINE CHE on 07/14/18731 Last Action: Reviewed Pantoprazole Sodium (Pantoprazole Sodium) 40 Mg Tablet.dr, 40 MG PO HS, (Reported) Entered as Reported by: ARNULFO LONDON on 03/25/22 134 Last Action: Reviewed Potassium Chloride (Potassium Chloride) 10 Meq Capsule.er, 10 MEQ PO HS, (Reported) Entered as Reported by: ARNULFO LONDON on 03/25/22 134 Last Action: Reviewed Discontinued Medications Acetaminophen (Tylenol Extra Strength) 500 Mg Tablet, 500-1,000 MG PO Q8H PRN for PAIN-MILD (1-4), (Reported) Discontinued Reason: No Longer Taking Entered as Reported by: ARNULFO LONDON on 03/25/22 134 Last Action: Discontinued Calcium Carbonate (Tums) 200 Mg Calcium (500 Mg) Tab.chew, 200-400 MG PO Q6H PRN for INDIGESTION, (Reported) Discontinued Reason: No Longer Taking Entered as Reported by: ARNULFO LONDON on 03/25/22 134 Last Action: Discontinued Clopidogrel Bisulfate (Clopidogrel) 75 Mg Tablet, 75 MG PO DAILY Discontinued Reason: Duplicate Order Prescribed by: SO MARCIAL on 03/26/22 1100 Last Action: Discontinued Metoprolol Succinate (Metoprolol Succinate) 50 Mg Tab.er.24h, 50 MG PO DAILY Discontinued Reason: Duplicate Order Prescribed by: OS MARCIAL on 03/26/221099 Last Action: Discontinued Past Fjxkmev-Qzwiiq-Glwcmz Hx Reviewed Nursing Assessment Reviewed/Agree w Nursing PMH: Yes Family Medical History Significant Family History: No Pertinent Family Hx (Denies HTN and DM FHx) Family Medial History: Completed stroke 19 FATHER G8 BROTHER FH: cancer G8 BROTHER G8 SISTER Review of Systems-General Constitutional: No chills, No fever EENTM: No blurred vision, No eye pain, No vision loss Cardiovascular: No chest pain, No edema, No palpitations Gastrointestinal: RUQ, abdominal pain (RUQ), constipation; No diarrhea, No nausea, No vomiting Genitourinary: No dysuria, No frequency Psychiatric/Neurological: Denies Headache, Denies Numbness, Denies Paresthesia, Denies Tingling All Other Systems Reviewed Negative Unless Noted: Yes (Negative excepted noted.) Physical Exam-General Problems Physical Exam General Appearance: WD/WN, no apparent distress HEENT: PERRL/EOMI, normal ENT inspection Neck: non-tender, supple Respiratory: chest non-tender, no respiratory distress, no accessory muscle use Cardiovascular: regular rate, rhythm, no edema Gastrointestinal: soft, tenderness (right upper quadrant), other (umbilical hernia, b/l inguinal) Rectal: deferred Back: no CVA tenderness, no vertebral tenderness Extremities: normal range of motion, non-tender, no pedal edema Neurologic/Psychiatric: alert, normal mood/affect, oriented x 3 Skin: normal color, warm/dry Lymphatic: no adenopathy Assessment/Plan Assessment/Plan Assessment/Plan Acute Cholecystitis RUQ abdominal pain Elevated WBC secondary to Acute Cholecystitis Tramsaminitis assisted antiplatelet/anticoagulant current use Clear liquids currently and NPO after midnight Eliquis and PLavix on hold, safest to hold eliquis 48 hours. Can give platelets at time of surgery for plavix to decrease risks of bleeding. Possible cholecystectomy tomorrow. Continue abx. Supervisory-Addendum Brief Verification & Attestation Participated in pt care: history, MDM, physical Personally performed: exam, history, MDM, supervision of care Care discussed with: Medical Student Procedures: n/a Results interpretation: Verified all documentation Verification and Attestation of Medical Student E/M Service A medical student performed and documented this service in my presence. I reviewed and verified all information documented by the medical student and made modifications to such information, when appropriate. I personally performed the physical exam and medical decision making. Heena Berry, Sep 06, 2022,13:59 LINETTE FONSECA Sep 06, 2022 07:27 HEENA BERRY DO Sep 06, 2022 13:55
[2022-09-06] MEDS: SENNOSIDES 8.6 MG (SENOKOT) TAB PO SCH ×2 (08:14→21:00)
[2022-09-06] MEDS: DOCUSATE SODIUM 100 MG (COLACE) CAP PO SCH ×2 (08:15→20:58)
[2022-09-06] MEDS: NS IV 500 ML 500 ML IV SCH (08:36)
[2022-09-06] MEDS ORDERED: ENOXAPARIN 80 MG/0.8 ML (LOVENOX) SYR SC SCH (09:00)
[2022-09-06] MEDS: morphine INJ 4 MG/ML 1 ML (VIAL/SYRINGE) IV PRN (10:13)
--- NOTE | 2022-09-06 10:31 | Consultation-Cardiology ---
HPI-Cardiology Cardiology Consultation Date of Consultation 09/06/22 Date of Admission Time Seen by Provider: 10:24 Indication: Coronary artery disease HPI 87-year-old gentleman with history of paroxysmal atrial fibrillation, coronary artery disease, admitted with acute cholecystitis and abdominal pain. On my evaluation he was feeling better, still having mild abdominal discomfort. No chest pain or shortness of breath. No palpitation. He was tachycardic. Has been compliant with his medication, last took his Eliquis and Plavix on September 05, 2022 in the morning Home Medications & Allergies Allergies: Coded Allergies: No Known Drug Allergies (Verified , 09/05/22) Home Medication List Reviewed: Yes [id number] Hx Patient Social History Marital Status: Smoking Status: Never a Smoker 2nd Hand Smoke Exposure: No Recent Hopitalizations: No Have you traveled recently?: No Alcohol Use?: Yes Immunizations Up To Date Tetanus Booster (TDap): Less than 5yrs Past Medical History Discussed below Family Medical History Significant Family History: No Pertinent Family Hx (Denies HTN and DM FHx) Family History: Completed stroke 19 FATHER G8 BROTHER FH: cancer G8 BROTHER G8 SISTER Review of Systems-General Review of Systems Constitutional: No chills, No fever EENTM: No blurred vision, No eye pain, No vision loss Respiratory: no symptoms reported, see HPI Cardiovascular: No chest pain, No edema, No palpitations Gastrointestinal: abdominal pain (Diffuse Abdominal Pain), constipation; No diarrhea, No nausea, No vomiting Genitourinary: No dysuria, No frequency Musculoskeletal: no symptoms reported Skin: no symptoms reported Psychiatric/Neurological: Denies Headache, Denies Numbness, Denies Paresthesia, Denies Tingling Reviewed Test Results Reviewed Test Results Lab Laboratory Tests Test 09/05/22 17:09 09/05/22 17:36 09/06/22 04:32 Range/Units White Blood Count 20.1 H 21.2 H 4.3-11.0 10^3/uL Red Blood Count 4.97 4.78 4.30-5.52 10^6/uL Hemoglobin 15.5 14.7 13.3-17.7 g/dL Hematocrit 46 45 40-54 % Mean Corpuscular Volume 93 93 80-99 fL Mean Corpuscular Hemoglobin 31 31 25-34 pg Mean Corpuscular Hemoglobin Concent 34 33 32-36 g/dL Red Cell Distribution Width 13.9 13.9 10.0-14.5 % Platelet Count 229 181 130-400 10^3/uL Mean Platelet Volume 11.2 11.6 9.0-12.2 fL Immature Granulocyte % (Auto) 1 1 % Neutrophils (%) (Auto) 87 H 81 H 42-75 % Lymphocytes (%) (Auto) 4 L 6 L 12-44 % Monocytes (%) (Auto) 8 11 0-12 % Eosinophils (%) (Auto) 1 1 0-10 % Basophils (%) (Auto) 0 0 0-10 % Neutrophils # (Auto) 17.4 H 17.2 H 1.8-7.8 10^3/uL Lymphocytes # (Auto) 0.8 L 1.3 1.0-4.0 10^3/uL Monocytes # (Auto) 1.6 H 2.3 H 0.0-1.0 10^3/uL Eosinophils # (Auto) 0.1 0.2 0.0-0.3 10^3/uL Basophils # (Auto) 0.0 0.0 0.0-0.1 10^3/uL Immature Granulocyte # (Auto) 0.1 0.2 H 0.0-0.1 10^3/uL Neutrophils % (Manual) 88 % Lymphocytes % (Manual) 3 % Monocytes % (Manual) 8 % Band Neutrophils 1 % Blood Morphology Comment NORMAL Sodium Level 137 136 135-145 MMOL/L Potassium Level 3.6 3.9 3.6-5.0 MMOL/L Chloride Level 96 L 98 98-107 MMOL/L Carbon Dioxide Level 22 27 21-32 MMOL/L Anion Gap 19 H 11 5-14 MMOL/L Blood Urea Nitrogen 19 H 20 H 7-18 MG/DL Creatinine 1.42 H 1.36 H 0.60-1.30 MG/DL Estimat Glomerular Filtration Rate 48 51 BUN/Creatinine Ratio 13 15 Glucose Level 186 H 137 H 70-105 MG/DL Calcium Level 9.9 9.4 8.5-10.1 MG/DL Corrected Calcium 9.4 8.5-10.1 MG/DL Total Bilirubin 1.4 H 2.5 H 0.1-1.0 MG/DL Aspartate Amino Transf (AST/SGOT) 25 172 H 5-34 U/L Alanine Aminotransferase (ALT/SGPT) 23 97 H 0-55 U/L Alkaline Phosphatase 76 96 40-136 U/L Total Protein 7.9 7.0 6.4-8.2 GM/DL Albumin 4.7 H 4.0 3.2-4.5 GM/DL Lipase 28 8-78 U/L Urine Color YELLOW Urine Clarity CLOUDY Urine pH 6.0 5-9 Urine Specific [place] >=1.030 1.016-1.022 Urine Protein 1+ H NEGATIVE Urine Glucose (UA) NEGATIVE NEGATIVE Urine Ketones NEGATIVE NEGATIVE Urine Nitrite NEGATIVE NEGATIVE Urine Bilirubin NEGATIVE NEGATIVE Urine Urobilinogen 0.2 < = 1.0 MG/DL Urine Leukocyte Esterase NEGATIVE NEGATIVE Urine RBC (Auto) TRACE-I H NEGATIVE Urine RBC NONE /HPF Urine WBC 2-5 /HPF Urine Crystals NONE /LPF Urine Bacteria TRACE /HPF Urine Casts NONE /LPF Urine Mucus NEGATIVE /LPF Urine Culture Indicated NO Magnesium Level 2.1 1.6-2.4 MG/DL Radiology CT ABD/PELVIS WO(KIDNEY STONE) PROCEDURE: CT urinary tract, rule out kidney stone. TECHNIQUE: Multiple contiguous axial images were obtained through the abdomen and pelvis without the use of intravenous contrast. Auto Exposure Controls were utilized during the CT exam to meet ALARA standards for radiation dose reduction. INDICATION: Abdominal pain and vomiting. Evaluate for bowel obstruction. COMPARISON: 03/19/2017. FINDINGS: The lung bases demonstrate no evidence of pneumonia. There are linear regions of airspace opacity most compatible with atelectasis. There is no pleural or pericardial effusion. There are coronary calcifications. The liver is of low density suggesting a component of steatosis. The gallbladder is distended. There is marked inflammatory fat stranding demonstrated about the gallbladder that is suspect for an acute cholecystitis. There is no identified radiodense gallstone. There is no evidence of abnormal biliary dilatation or evidence of a radiodense stone within the common bile duct. The pancreas is mildly atrophic. The spleen demonstrates several calcified granulomas. There is no adrenal mass. There are large right-sided renal cysts without findings of hydronephrosis. These are not significantly changed from prior exam. Smaller cyst within the left kidney is also noted. There is a nonobstructing right renal calculus. The stomach demonstrates minimal fluid within the lumen. There is no gastric wall thickening. There is some stranding in the duodenum that appears to be secondary to the gallbladder process. There is no abnormal small bowel dilation evident. There are no features of bowel obstruction. There is diverticulosis. The distal colon is contracted. There are no findings of diverticulitis. There is a fat-containing periumbilical hernia. The bladder is nondistended. The prostate is mildly enlarged. There are fat-containing bilateral inguinal hernias. There is no free air, free fluid or evidence of pneumatosis. There is no abscess. There are no pathologically enlarged lymph nodes. There are atherosclerotic calcifications within a normal caliber aorta. The patient is status post prior left hip arthroplasty. There are multilevel degenerative features present within the spine but no findings of an acute osseous abnormality. IMPRESSION: 1. Marked inflammatory fat stranding surrounding a distended gallbladder suggesting acute cholecystitis. There are no radiodense stones or findings of biliary dilatation. 2. No findings of bowel obstruction. Uncomplicated diverticulosis noted. 3. No free air, free fluid or abscess. 4. Bilateral renal cysts and nonobstructing right renal calculus. 5. Atherosclerosis and coronary artery disease. 6. Periumbilical and bilateral inguinal hernias. Physical Exam Physical Exam Vital Signs Vital Signs - First Documented 09/05/22 09/05/22 09/05/22 16:10 20:23 22:20 Temp 37.0 Pulse 105 Resp 96 B/P (MAP) 173/90 (117) Pulse Ox 96 O2 Delivery Room Air O2 Flow Rate 2.00 FiO2 21 Capillary Refill : Less Than 3 Seconds Height, Weight, BMI Height: 5'8.00" Weight: 185lbs. 0.0oz. 83.160793tl; 26.48 BMI Method:Stated General Appearance: Thin Eyes: Bilateral Eye Normal Inspection, Bilateral Eye PERRL, Bilateral Eye EOMI HEENT: PERRL/EOMI, TMs Normal, Normal ENT Inspection, Pharynx Normal, Moist Mucous Membranes Neck: Full Range of Motion, Normal Inspection, Non Tender, Supple, Carotid Bruit Respiratory: Chest Non Tender, Normal Breath Sounds, No Accessory Muscle Use, No Respiratory Distress Cardiovascular: No Edema, No Gallop, No JVD, Normal Peripheral Pulses, Irregularly Irregular Gastrointestinal: Normal Bowel Sounds, No Organomegaly, No Pulsatile Mass, Soft, Tenderness Back: Normal Inspection, No CVA Tenderness, No Vertebral Tenderness Extremity: Normal Capillary Refill, Normal Inspection, Normal Range of Motion, Non Tender, No Calf Tenderness, No Pedal Edema Neurologic/Psychiatric: Alert, Oriented x3, No Motor/Sensory Deficits, Normal Mood/Affect Skin: Normal Color, Warm/Dry Lymphatic: No Adenopathy A/P-Cardiology Admission Diagnosis Acute cholecystitis Coronary artery disease Permanent atrial fibrillation Hypertension Assessment/Plan Acute cholecystitis, currently scheduled for possible cholecystectomy Managed by surgical team. Coronary artery disease, history of non-ST elevation myocardial infarction in March 2022 - Cardiac cath of 07-14-18: 90% [id number] vessel stenosis of the left anterior descending artery within a small caliber vessel to which balloon angioplasty was carried out which reduced the stenosis to less than 50%. The rest of the coronary vessels have moderate diffuse disease. There is a patent stent in the right coronary with a 50% in-stent restenosis (unchanged compared to previous study). Elevated left ventricular end-diastolic pressure. - MPI of 12/07/19: no ischemia or infarction, LVEF 48% (appeared to be higher, subjectively) - Card cath on 03/25/22: 90-85 prox and mid LAD stenosis treated with PTCA and then 2.25 x 23 mm GABRIELA, distal LAD, distal LCX, and prox RI have severe disease that is not amenable to intervention, RCA is dominant with patent prox stent with up to 50 instent and distal RCA with up to 50 stenoses, LVEDP 22 mmHg Has been maintained on aspirin and Plavix last taken on September 05, 2022. Permanent atrial fibrillation, tachycardic at this time probably secondary to acute cholecystitis I will start on Cardizem drip and titrate to achieve adequate heart rate control. Patient has been maintained on Eliquis last dose taken on September 05, 2022 History of syncope and collapse reported pulseless per family on March 24, 2022. Had chest compression Loop monitor implanted on March 26, 2022. History of rib fractures after chest compression Congestive heart failure, chronic compensated left ventricular diastolic dysfunction. Echocardiogram done in March 2022 with normal left ventricular systolic function and ejection fraction 60 to 65%, moderately dilated left atrium with pulmonary hypertension PA pressure 40 to 45 mmHg. Hypertension, continue to monitor blood pressure Hyperlipidemia, maintained on statin. Currently on hold History of umbilical hernia. Questionable underlying sleep apnea Lumbar spondylosis and spinal stenosis, followed by Dr. Mahan Preoperative cardiac risk stratification, patient is considered at intermediate to high risk for perioperative cardiovascular complications, decision regarding the surgery is deferred to the surgeon Recommendation is to hold Eliquis for 48 hours prior to abdominal surgery, recommendation to hold aspirin and Plavix for 5 days prior to abdominal surgery Decision regarding urgent surgery is deferred to the surgeon IAN ERICKSON MD Sep 06, 2022 10:31
[2022-09-06] MEDS: dilTIAZem DRIP PRE-MIX 125 ML IV SCH ×2 (10:49→23:51)
[2022-09-06] MEDS: NS IV 1000 ML 1,000 ML IV SCH ×2 (10:50→23:24)
[2022-09-06] MEDS: meTOproloL SUCCINATE 50 MG (TOPROL XL) TAB PO SCH (11:19)
[2022-09-06] MEDS: HYDROmorphone 2 MG/ML VIAL (DILAUDID) IV PRN (11:19)
--- NOTE | 2022-09-06 11:20 | Tele-ICU Progress Note ---
Subjective Date Seen by a Provider: Sep 06, 2022 Time Seen by a Provider: 11:20 Subjective/Events-last exam (Tele-ICU Physician , Progress Note ) Service provided via interactive audio and video telecommunications E-CARE system to a patient admitted to ICU bed in [facility]. Available chart/ vitals / labs / Images reviewed Video assessment done using teleICU camera, rest of exam as per RN Discussed with RN Events overnight : Afebrile hemodynamically stable Respiratory - ra I/O = Drips: ns 80h Pressors- no Consultants: sx Hospital course: (09/05) Admitted an 87y/o with acute cholecystits. On Plavix and Eliquis and will wait 48 hours for OR. Patient is seen today due to persistent A/P Acute cholecystitis, not on shock - Zosyn started -pain control - Sx on consult h/o PAF - SINUS now - on eliquis DB2 DEVELOPER- ON HOLD NOW < ON FULL DOSE LOVENOX x1 09/06 -on cardizem gtt as per cards for tachy -Echo 03/2022 - EF 50% JESICA - mild , cont hydration , follow CAD. - as per cardiology Pulm HTN - RVSP 50 03/2023 Lines : periph , (Central Line Necessity Reviewed) Hassan: void OG: Nutrition: as per sx Analgesia: Anxiety/ delirium VTE Prophylaxis: on fold Stress Ulcer Prophylaxis: Plans in collaboration with bedside consultants and IM MDs. Discussed with RN to reach out if any questions or concerns A total of 31minutes of critical care time was devoted to this patient today, required to treat and/or prevent further deterioration of critical care conditi on ( as above ) I am remotely monitoring this patient from another state. I am unable to do the bedside exam, and history/physical and pertinent information is taken from other notes in the computer and bedside staff. + Sepsis Event Evaluation Height, Weight, BMI Height: 5'8.00" Weight: 185lbs. 0.0oz. 83.487033ml; 26.48 BMI Method:Stated Exam Exam Patient acknowledged, consented, and participated in this virtual visit which was conducted using real time audio/video Vital Signs Date Time Temp Pulse Resp B/P (MAP) Pulse Ox O2 Delivery O2 Flow Rate FiO2 09/06/22 10:49 115 145/100 09/06/22 10:30 Nasal Cannula 2.00 09/06/22 10:14 115 145/100 09/06/22 10:00 115 26 145/100 (115) 93 Room Air 09/06/22 09:00 116 26 140/89 (106) 93 Room Air 09/06/22 08:00 116 25 162/94 (116) 94 Room Air 09/06/22 08:00 Room Air 09/06/22 07:45 37.4 09/06/22 07:24 94 Room Air 0.00 09/06/22 07:00 104 09/06/22 07:00 115 21 149/102 (118) 92 Room Air 09/06/22 06:00 113 20 144/98 (113) 92 09/06/22 06:00 113 21 144/98 (113) 92 Room Air 09/06/22 05:00 116 23 155/102 (119) 92 Room Air 09/06/22 05:00 116 22 155/102 (119) 92 09/06/22 04:20 Room Air 09/06/22 04:00 114 20 157/102 (120) 91 09/06/22 03:00 115 20 158/107 (124) 92 09/06/22 01:05 102 09/06/22 01:00 106 09/06/22 00:00 102 26 145/96 (112) 90 09/05/22 23:40 Room Air 09/05/22 23:00 114 21 147/104 (118) 90 Room Air 09/05/22 22:30 100 22 157/103 (121) 93 Room Air 09/05/22 22:30 100 27 157/103 (121) 92 Room Air 09/05/22 22:20 37.0 105 96 21 09/05/22 22:00 101 20 150/88 (108) 92 Room Air 09/05/22 22:00 101 20 150/88 (108) 92 Room Air 09/05/22 21:45 101 20 138/96 (110) 92 09/05/22 21:30 111 20 139/92 (108) 92 Room Air 09/05/22 21:30 111 20 139/92 (108) 91 Room Air 09/05/22 21:15 112 24 152/104 (120) 95 Room Air 09/05/22 21:15 112 30 152/104 (120) 95 Room Air 09/05/22 21:00 114 24 155/95 (115) 93 Room Air 09/05/22 21:00 114 25 155/95 (115) 93 Room Air 09/05/22 20:52 Room Air 09/05/22 20:50 115 09/05/22 20:45 36.7 09/05/22 20:45 115 22 161/109 (126) 93 Room Air 09/05/22 20:45 115 25 161/109 (126) 93 Room Air 09/05/22 20:23 116 20 155/101 95 Nasal Cannula 2.00 09/05/22 16:10 37.0 105 96 173/90 (117) 96 Room Air I & O 09/06/22 07:00 Intake Total 1275 ml Output Total 975 ml Balance 300 ml Height & Weight Height: 5'8.00" Weight: 185lbs. 0.0oz. 83.263542ee; 26.48 BMI Method:Stated General Appearance: Thin HEENT: PERRL/EOMI, TMs Normal, Normal ENT Inspection, Pharynx Normal, Moist Mucous Membranes Neck: Full Range of Motion, Normal Inspection, Non Tender, Supple, Carotid Bruit Respiratory: Chest Non Tender, Normal Breath Sounds, No Accessory Muscle Use, No Respiratory Distress Cardiovascular: No Edema, No Gallop, No JVD, Normal Peripheral Pulses, Irregularly Irregular Capillary Refill: Less Than 3 Seconds Peripheral Pulses: 1+ Dorsalis Pedis (R), 1+ Left Dors-Pedis (L) (See free text.); 2+ Radial Pulses (R), 2+ Radial Pulses (L) Gastrointestinal: normal bowel sounds, soft, guarding, tenderness Extremity: Normal Capillary Refill, Normal Inspection, Normal Range of Motion, Non Tender, No Calf Tenderness, No Pedal Edema Neurologic/Psychiatric: Alert, Oriented x3, No Motor/Sensory Deficits, Normal Mood/Affect Skin: Normal Color, Warm/Dry Lymphatic: No Adenopathy Results Lab Laboratory Tests 09/05/22 17:09 09/06/22 04:32 Assessment/Plan Assessment/Plan 1 SAMUEL ALVAREZ MD Sep 06, 2022 11:20
[2022-09-06] MEDS ORDERED: CLOP75TA28 PO (12:44)
[2022-09-06] MEDS ORDERED: METO50TA7 PO (12:44)
--- NOTE | 2022-09-06 20:36 | Progress Note-Pre Operative ---
Pre-Operative Progress Note Date of Available H&P: Sep 06, 2022 Date H&P Reviewed: Sep 06, 2022 Time H&P Reviewed: 20:30 History & Physical: No changes noted Pre-Operative Diagnosis: acute cholecystitis CONCHA OLIVER MD Sep 06, 2022 20:36
--- NOTE | 2022-09-06 21:02 | CONSULTATION REPORT ---
DATE OF SERVICE: 09/06/2022 ATTENDING PRIMARY CARE PHYSICIAN: Marilynn Mustafa DO HISTORY OF PRESENT ILLNESS: The patient is an 87-year-old male who presented to the Emergency Department with a two-day history of pain in the right upper abdominal quadrant with associated nausea and restlessness. He states that he has had some pain similar to this before in the past; however, not as severe. A CT scan was performed, which did show gallbladder wall inflammation consistent with acute cholecystitis. The patient does have significant coronary artery disease and is also on dual anticoagulation therapy with Eliquis and Plavix. The patient was initially admitted by another surgeon; however, was signed out to me. PAST MEDICAL HISTORY: Hypertension, hypercholesterolemia, coronary artery disease, congestive heart failure, atrial fibrillation, constipation, history of nephrolithiasis. PAST SURGICAL HISTORY: Abdominal hernia repair, cardiac catheterization and stent placement. ALLERGIES: No known drug allergies. MEDICATIONS: Apixaban 5 mg b.i.d., Plavix 75 mg daily, furosemide 40 mg daily, metoprolol 50 mg b.i.d., fish oil daily, Protonix 40 mg daily, potassium 10 mEq daily. SOCIAL HISTORY: Negative for smoke, social alcohol. FAMILY HISTORY: Father and brother, stroke. A sister and brother with some form of cancer. REVIEW OF SYSTEMS: A well-nourished male, currently in no acute distress. He is not experiencing any shortness of breath or difficulty breathing. No chest pain, palpitations, diaphoresis. He does have pain in the right upper abdominal quadrant with intermittent episodes of nausea; however, no vomiting. All other review of systems negative. PHYSICAL EXAMINATION: VITAL SIGNS: Temperature 37.0, blood pressure 126/69, pulse 76, respirations 20, pulse ox 96% on 2 liters nasal cannula. LUNGS: Scattered rales bilaterally. HEART: Regular, no murmurs. EXTREMITIES: No lower extremity edema. Negative Homans sign. HEENT: No scleral icterus. No cervical lymphadenopathy. ABDOMEN: Soft, nondistended. There is pain in the right upper abdominal quadrant with a positive Eastman sign. SKIN: Warm and dry. LABORATORY DATA: WBC 21.2, hemoglobin 14.7, hematocrit 45, platelets 181, BUN 20, creatinine 1.36. ASSESSMENT AND PLAN: An 87-year-old male with acute cholecystitis. The natural history of gallbladder disease was explained to the patient as well as the risks and benefits of surgery. He is in full understanding of this and would like to proceed with a laparoscopic cholecystectomy; however, due to his dual anticoagulation therapy we will allow for a natural drift for 48 hours and schedule the surgery for tomorrow. We will also recommend aggressive DVT prophylaxis with early ambulation calf SCDs as well as Lovenox and respiratory complications including breathing treatments and incentive spirometry as much as possible. Job ID: [id number] DocumentID: [id number] Dictated Date: 09/06/2022 20:42:59 Corporate Quality Assurance Manager Date: 09/06/2022 21:00:00 Dictated By: CONCHA OLIVER MD
[2022-09-07] VITALS (8 sets, daily range): BP systolic 113–143; BP diastolic 83–116
[2022-09-07] MEDS: NS IV 500 ML 500 ML IV SCH ×2 (02:42→20:22)
[2022-09-07 04:24] LABS: BASOPHILS % (AUTO) 0 % (0-10); EOSINOPHILS # (AUTO) 0.1 10^3/uL (0.0-0.3); EOSINOPHILS % (AUTO) 1 % (0-10); HEMATOCRIT 42 % (40-54); HEMOGLOBIN 13.7 g/dL (13.3-17.7); LYMPHOCYTES # (AUTO) 1.1 10^3/uL (1.0-4.0); LYMPHOCYTES % (AUTO) 6 % (12-44); MEAN CORPUSCULAR HEMOGLOBIN 30 pg (25-34); MEAN CORPUSCULAR HGB CONC 33 g/dL (32-36); MEAN CORPUSCULAR VOLUME 93 fL (80-99); MONOCYTES # (AUTO) 1.7 10^3/uL (0.0-1.0); MONOCYTES % (AUTO) 9 % (0-12); NEUTROPHILS # (AUTO) 15.2 10^3/uL (1.8-7.8); NEUTROPHILS % (AUTO) 83 % (42-75); PLATELET COUNT 165 10^3/uL (130-400); WHITE BLOOD COUNT 18.3 10^3/uL (4.3-11.0)
[2022-09-07 04:36] LABS: ALBUMIN 3.5 GM/DL (3.2-4.5); POTASSIUM 3.3 MMOL/L (3.6-5.0)
[2022-09-07 04:37] LABS: CALCIUM 8.8 MG/DL (8.5-10.1)
[2022-09-07 04:38] LABS: TOTAL PROTEIN 6.4 GM/DL (6.4-8.2)
[2022-09-07 04:40] LABS: BILIRUBIN,TOTAL 2.6 MG/DL (0.1-1.0)
[2022-09-07 04:42] LABS: CREATININE SERUM 1.29 MG/DL (0.60-1.30)
[2022-09-07 04:45] LABS: MAGNESIUM 2.2 MG/DL (1.6-2.4)
[2022-09-07] MEDS: POTASSIUM CL 10MEQ/50ML IVPB 50 ML IV SCH ×4 (06:01→10:00)
[2022-09-07] MEDS: PIPERACILLIN SODIUM/TAZOBACTAM 4.5 GM in NS (IVPB) 100 ML IV SCH ×3 (06:01→21:46)
[2022-09-07] MEDS: KCL 20 MEQ TAB (K-DUR) PO SCH (06:19)
[2022-09-07] MEDS: MAGNESIUM 1 GM/100 ML IVPB 100 ML IV SCH (06:19)
--- NOTE | 2022-09-07 07:59 | Progress Note ---
Subjective Date Seen by a Provider: Sep 07, 2022 Time Seen by a Provider: 11:00 Subjective/Events-last exam Patient undergoing cholecystectomy Vitals remained stable Diltiazem infusing Check labs and meds Review of Systems General: Fatigue, Malaise Objective Exam Last Set of Vital Signs Vital Signs Date Time Temp Pulse Resp B/P (MAP) Pulse Ox O2 Delivery O2 Flow Rate FiO2 09/07/22 07:21 36.8 09/07/22 07:00 108 09/07/22 07:00 21 128/78 (95) 95 Room Air 09/07/22 02:00 2.00 09/05/22 22:20 21 Capillary Refill : Less Than 3 Seconds I&O Intake and Output 09/07/22 00:00 Intake Total 3335 ml Output Total 1475 ml Balance 1860 ml Intake Oral 1220 ml IV Total 2115 ml Output Urine Total 1475 ml # Voids 2 # Bowel Movements 1 General: Alert, Oriented X3, Cooperative, No Acute Distress Lungs: Clear to Auscultation, Normal Air Movement Heart: Regular Rate, Normal S1, Normal S2, No Murmurs Psych/Mental Status: Mental Status NL, Mood NL Results Lab Laboratory Tests 09/07/22 04:13: White Blood Count 18.3H, Red Blood Count 4.51, Hemoglobin 13.7, Hematocrit 42, Mean Corpuscular Volume 93, Mean Corpuscular Hemoglobin 30, Mean Corpuscular Hemoglobin Concent 33, Red Cell Distribution Width 14.2, Platelet Count 165, Mean Platelet Volume 11.0, Immature Granulocyte % (Auto) 1, Neutrophils (%) (Auto) 83H, Lymphocytes (%) (Auto) 6L, Monocytes (%) (Auto) 9, Eosinophils (%) (Auto) 1, Basophils (%) (Auto) 0, Neutrophils # (Auto) 15.2H, Lymphocytes # (Auto) 1.1, Monocytes # (Auto) 1.7H, Eosinophils # (Auto) 0.1, Basophils # (Auto) 0.0, Immature Granulocyte # (Auto) 0.2H, Sodium Level 135, Potassium Level 3.3L, Chloride Level 100, Carbon Dioxide Level 23, Anion Gap 12, Blood Urea Nitrogen 21H, Creatinine 1.29, Estimat Glomerular Filtration Rate 54, BUN/Creatinine Ratio 16, Glucose Level 130H, Calcium Level 8.8, Corrected Calcium 9.2, Magnesium Level 2.2, Total Bilirubin 2.6H, Aspartate Amino Transf (AST/SGOT) 153H, Alanine Aminotransferase (ALT/SGPT) 165H, Alkaline Phosphatase 113, Total Protein 6.4, Albumin 3.5 Assessment/Plan Assessment/Plan Assess & Plan/Chief Complaint Assessment: Acute cholecystitischolecystectomy today A. fib with RVR maintained on diltiazem drip History of chronic atrial fibrillation CHF Hypertension CAD Status post cardiac arrest at home March 2022 Plan: Broad-spectrum antibiotics ICU Cardiology General surgery to perform cholecystectomy KAREN JJ DO Sep 07, 2022 07:59
[2022-09-07] MEDS: RT-ALBUTEROL SULF 2.5 MG/3 ML PRE-MIX VIAL INH SCH ×2 (08:00→19:33)
[2022-09-07] MEDS: meTOprolol 5 MG/5 ML (LOPRESSOR) VIAL IV SCH ×4 (08:25→23:46)
[2022-09-07] MEDS: DOCUSATE SODIUM 100 MG (COLACE) CAP PO SCH ×2 (08:49→21:42)
[2022-09-07] MEDS: SENNOSIDES 8.6 MG (SENOKOT) TAB PO SCH ×2 (08:50→21:42)
[2022-09-07] MEDS: meTOproloL SUCCINATE 50 MG (TOPROL XL) TAB PO SCH (08:50)
[2022-09-07] MEDS ORDERED: meTOproloL SUCCINATE 50 MG (TOPROL XL) TAB PO SCH (09:00)
--- NOTE | 2022-09-07 09:53 | Cardiology Progress Note ---
Subjective Date Seen by Provider: Sep 07, 2022 Time Seen by Provider: 09:52 Subjective/Events-last exam Patient was seen at bedside, laying down comfortably, still having mild abdominal pain Review of Systems General: No Chills, No Night Sweats, No Fatigue, No Malaise, No Appetite, No Other HEENT: No Head Aches, No Visual Changes, No Eye Pain, No Ear Pain, No Dyspha teresa, No Sinus Congestion, No Post Nasal Drip, No Sore Throat, No Other Pulmonary: No Dyspnea, No Cough, No Pleuritic Chest Pain, No Other Cardiovascular: No: Chest Pain, Palpitations, Orthopnea, Paroxysmal Noc. Dyspnea, Edema, Lt Headedness, Other Objective-Cardiology Exam Last Set of Vital Signs Vital Signs 09/05/22 09/07/22 09/07/22 09/07/22 22:20 02:00 07:21 09:00 Temp 36.8 Pulse 93 Resp 25 B/P (MAP) 113/73 (86) Pulse Ox 93 O2 Delivery Room Air O2 Flow Rate 2.00 FiO2 21 I&O Intake and Output 09/07/22 00:00 Intake Total 3335 ml Output Total 1475 ml Balance 1860 ml Intake Oral 1220 ml IV Total 2115 ml Output Urine Total 1475 ml # Voids 2 # Bowel Movements 1 General: Alert, Oriented X3, Cooperative HEENT: Atraumatic, PERRLA Neck: Supple, No JVD, No Thyromegaly Lungs: Clear to Auscultation, Normal Air Movement Heart: Regular Rate, Normal S1, Normal S2, No Murmurs Abdomen: Normal Bowel Sounds, Soft, No Tenderness, No Hepatosplenomegaly, No Masses Extremities: No Clubbing, No Cyanosis, No Edema, Normal Pulses, No Tenderness/Swelling Skin: No Rashes, No Breakdown, No Significant Lesion Neuro: Normal Gait, Normal Speech, Strength at 5/5 X4 Ext, Normal Tone, Sensation Intact Psych/Mental Status: Mental Status NL, Mood NL Results Lab Laboratory Tests 09/07/22 04:13 A/P-Cardiology Admission Diagnosis Acute cholecystitis Coronary artery disease Permanent atrial fibrillation Hypertension Assessment/Plan Acute cholecystitis, currently scheduled for possible cholecystectomy, patient is requesting to have his umbilical hernia repaired during surgery Managed by surgical team. Coronary artery disease, history of non-ST elevation myocardial infarction in March 2022 - Cardiac cath of 07-14-18: 90% [id number] vessel stenosis of the left a nterior descending artery within a small caliber vessel to which balloon angioplasty was carried out which reduced the stenosis to less than 50%. The rest of the coronary vessels have moderate diffuse disease. There is a patent stent in the right coronary with a 50% in-stent restenosis (unchanged compared to previous study). Elevated left ventricular end-diastolic pressure. - MPI of 12/07/19: no ischemia or infarction, LVEF 48% (appeared to be higher, subjectively) - Card cath on 03/25/22: 90-85 prox and mid LAD stenosis treated with PTCA and then 2.25 x 23 mm GABRIELA, distal LAD, distal LCX, and prox RI have severe disease that is not amenable to intervention, RCA is dominant with patent prox stent with up to 50 instent and distal RCA with up to 50 stenoses, LVEDP 22 mmHg Has been maintained on aspirin and Plavix last taken on September 05, 2022. Permanent atrial fibrillation, tachycardic at this time probably secondary to acute cholecystitis I will start on Cardizem drip and titrate to achieve adequate heart rate control. Patient has been maintained on Eliquis last dose taken on September 05, 2022 History of syncope and collapse reported pulseless per family on March 24, 2022. Had chest compression Loop monitor implanted on March 26, 2022. History of rib fractures after chest compression Congestive heart failure, chronic compensated left ventricular diastolic dysfunction. Echocardiogram done in March 2022 with normal left ventricular systolic function and ejection fraction 60 to 65%, moderately dilated left atrium with pulmonary hypertension PA pressure 40 to 45 mmHg. Hypertension, continue to monitor blood pressure Hyperlipidemia, maintained on statin. Currently on hold History of umbilical hernia. Questionable underlying sleep apnea Lumbar spondylosis and spinal stenosis, followed by Dr. Mahan Preoperative cardiac risk stratification, patient is considered at intermediate to high risk for perioperative cardiovascular complications, decision regarding the surgery is deferred to the surgeon Recommendation is to hold Eliquis for 48 hours prior to abdominal surgery, recommendation to hold aspirin and Plavix for 5 days prior to abdominal surgery Decision regarding urgent surgery is deferred to the surgeon IAN ERICKSON MD Sep 07, 2022 09:53
[2022-09-07] MEDS ORDERED: LIDOCAINE/EPI 1%-1:100,000 (XYLOCAINE) 30ML ONE (10:30)
[2022-09-07] MEDS ORDERED: LACTATED RINGERS 1,000 ML IV PRN (10:30)
--- NOTE | 2022-09-07 10:34 | Tele-ICU Progress Note ---
Subjective Date Seen by a Provider: Sep 07, 2022 Time Seen by a Provider: 10:34 Subjective/Events-last exam (Tele-ICU Physician , Progress Note ) Service provided via interactive audio and video telecommunications E-CARE system to a patient admitted to ICU bed in [facility]. Available chart/ vitals / labs / Images reviewed Video assessment done using teleICU camera, rest of exam as per RN Discussed with RN Events overnight : Afebrile hemodynamically stable Respiratory - ra I/O = pos 1800 Drips: ns 80h Pressors- no Consultants: sx Hospital course: (09/05) Admitted an 87y/o with acute cholecystits. On Plavix and Eliquis and will wait 48 hours for OR. 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 - as per cardiology Pulm HTN - RVSP 50 03/2023 Lines : periph , (Central Line Necessity Reviewed) Hassan: void OG: Nutrition: as per sx Analgesia: Anxiety/ delirium VTE Prophylaxis: on hold , SCD Stress Ulcer Prophylaxis: Plans in collaboration with bedside consultants and IM MDs. Discussed with RN to reach out if any questions or concerns A total of 20 minutes of critical care time was devoted to this patient today, required to treat and/or prevent further deterioration of critical care condition ( as above ) I am remotely monitoring this patient from another state. I am unable to do the bedside exam, and history/physical and pertinent information is taken from other notes in the computer and bedside staff. + Sepsis Event Evaluation Height, Weight, BMI Height: 5'8.00" Weight: 185lbs. 0.0oz. 83.203998mm; 26.48 BMI Method:Stated Exam Exam Patient acknowledged, consented, and participated in this virtual visit which was conducted using real time audio/video Vital Signs Date Time Temp Pulse Resp B/P (MAP) Pulse Ox O2 Delivery O2 Flow Rate FiO2 09/07/22 10:00 87 10 123/71 (88) 92 Room Air 09/07/22 09:00 93 25 113/73 (86) 93 Room Air 09/07/22 08:00 112 21 129/93 (105) 91 Room Air 09/07/22 08:00 91 Room Air 09/07/22 07:21 36.8 09/07/22 07:00 108 09/07/22 07:00 103 21 128/78 (95) 95 Room Air 09/07/22 06:00 113 22 137/93 (108) 92 Room Air 09/07/22 05:00 109 20 132/73 (92) 95 09/07/22 04:30 112 127/94 (105) 09/07/22 04:00 112 21 121/90 (100) 93 09/07/22 03:48 91 Room Air 09/07/22 03:37 36.7 09/07/22 03:30 125 09/07/22 03:00 111 18 126/84 (98) 91 09/07/22 02:30 112 118/77 (91) 09/07/22 02:00 114 24 115/95 (102) 95 Nasal Cannula 2.00 09/07/22 01:00 112 09/07/22 01:00 108 09/07/22 01:00 105 21 89 Room Air 09/07/22 00:00 92 19 120/80 (93) 93 Nasal Cannula 2.00 09/06/22 23:51 93 09/06/22 23:46 37.1 09/06/22 23:28 91 Room Air 09/06/22 23:00 92 21 124/87 (99) 94 Nasal Cannula 2.00 09/06/22 22:00 85 21 127/87 (100) 96 Nasal Cannula 2.00 09/06/22 21:00 75 24 116/76 (89) 96 Nasal Cannula 2.00 09/06/22 20:00 76 20 126/69 (88) 96 09/06/22 20:00 76 20 126/69 (88) 96 Nasal Cannula 2.00 09/06/22 19:30 Nasal Cannula 2.00 09/06/22 19:30 37.0 09/06/22 19:00 70 09/06/22 19:00 68 22 118/65 (82) 95 Nasal Cannula 2.00 09/06/22 19:00 68 22 118/65 (82) 95 Nasal Cannula 2.00 09/06/22 18:00 65 18 114/64 (81) 97 Room Air 09/06/22 17:00 65 21 116/71 (86) 96 Room Air 09/06/22 16:00 Room Air 09/06/22 16:00 66 25 121/97 (105) 90 Room Air 09/06/22 15:00 81 19 129/80 (96) 90 Room Air 09/06/22 14:00 115 19 146/94 (111) 90 Room Air 09/06/22 13:00 116 20 140/91 (107) 92 Room Air 09/06/22 12:32 112 09/06/22 12:10 117 19 148/93 (111) 95 Room Air 09/06/22 12:06 Room Air 09/06/22 12:00 37.1 09/06/22 10:49 115 145/100 I & O 09/07/22 07:00 Intake Total 3385 ml Output Total 600 ml Balance 2785 ml Height & Weight Height: 5'8.00" Weight: 185lbs. 0.0oz. 83.167522ll; 26.48 BMI Method:Stated General Appearance: Anxious, Chronically ill, Mild Distress, Thin HEENT: PERRL/EOMI, Normal ENT Inspection, Pharynx Normal Neck: Full Range of Motion, Normal Inspection, Non Tender, Supple, Carotid Bruit Respiratory: Chest Non Tender, Lungs Clear, Normal Breath Sounds, No Accessory Muscle Use, No Respiratory Distress Cardiovascular: No Edema, No Gallop, No JVD, No Murmur, Normal Peripheral Pulses, Irregularly Irregular, Tachycardia Capillary Refill: Less Than 3 Seconds Peripheral Pulses: 1+ Dorsalis Pedis (R), 1+ Left Dors-Pedis (L) (See free text.); 2+ Radial Pulses (R), 2+ Radial Pulses (L) Gastrointestinal: soft, tenderness (right upper quadrant), other (umbilical hernia, b/l inguinal) Extremity: Normal Capillary Refill, Normal Inspection, Normal Range of Motion, Non Tender, No Calf Tenderness, No Pedal Edema Neurologic/Psychiatric: Alert, Oriented x3, No Motor/Sensory Deficits, Normal 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
[2022-09-07] MEDS ORDERED: ceFAZolin INJECTION 2,000 MG ONE (11:22)
[2022-09-07] MEDS ORDERED: ETOMIDATE IV SOLN 20 MG/10 ML VIAL ONE (11:35)
[2022-09-07] MEDS ORDERED: SUCCINYLCHOLINE INJ 20 MG/1 ML 10 ML VIAL ONE (11:35)
[2022-09-07] MEDS ORDERED: fentaNYL INJ 100 MCG/2 ML AMP ONE (11:36)
[2022-09-07] MEDS ORDERED: ROCURONIUM 10 MG/ML 5 ML SYRINGE IV ONE (11:36)
[2022-09-07] MEDS ORDERED: ONDANSETRON 4 MG/2 ML (SDV) Z0FRAN ONE ×2 (11:45→13:01)
[2022-09-07] MEDS ORDERED: morphine INJ 10 MG/ML 1ML (SYR OR VIAL) ONE (11:46)
[2022-09-07] MEDS ORDERED: HYDROmorphone 2 MG/ML VIAL (DILAUDID) ONE (11:47)
[2022-09-07] MEDS ORDERED: ceFAZolin INJECTION 2,000 MG in NS (IVPB) 50 ML IV ONE (12:00)
[2022-09-07] MEDS ORDERED: meTOprolol 5 MG/5 ML (LOPRESSOR) VIAL ONE (13:00)
[2022-09-07] MEDS ORDERED: SEVOFLURANE (ULTANE) 15 ML INHAL SOLN ONE (13:00)
[2022-09-07] MEDS ORDERED: LIDOCAINE PF 2% 5 ML (XYLOCAINE) VIAL ONE (13:01)
--- NOTE | 2022-09-07 13:06 | Progress Note-Post Operative ---
Post-Operative Progess Note Surgeon (s)/Chain Person (s) Surgeon CONCHA OLIVER MD Chain Person: parveen garnett [employer]IPMENT TENDER Pre-Operative Diagnosis acute cholecystitis Post-Operative Diagnosis same with sx reducible umbilical hernia Procedure & Operative Findings Date of Procedure 09/07/22 Procedure Performed/Findings laparoscopic cholecystectomy and umbilical hernia repair with mesh. Anesthesia Type get Estimated Blood Loss Estimated blood loss (mL): minimal Specimens/Packing Specimens Removed gallbladder CONCHA OLIVER MD Sep 07, 2022 13:06
[2022-09-07] MEDS ORDERED: HYDR-3817 PO (13:09)
--- NOTE | 2022-09-07 13:09 | Discharge Inst-Surgical ---
D/C Lap Instructions-MELODY New, Converted, or Re-Newed RX: RX on Chart Follow Up Appt in 2 weeks Activity as tolerated No driving for 24 hours No driving while on pain medications Incentive Spirometry use every 2 hours while awake Regular Diet Symptoms to Report: Fever over 101 degree F, Nausea/Vomiting Infection Signs and Symptoms to report: Increased redness, Foul odor of wound, Increased drainage Bathing instructions: May shower Operative Area Clean/Dry; Keep incision clean/dry If any problems/questions: Contact your physician or go to Emergency Room CONCHA OLIVER MD Sep 07, 2022 13:09
[2022-09-07] MEDS ORDERED: NEOSTIGMINE (BLOXIVERZ ) 1 MG/1ML 10 ML VIAL ONE (13:19)
[2022-09-07] MEDS: dilTIAZem DRIP PRE-MIX 125 ML IV SCH (14:00)
--- NOTE | 2022-09-07 14:16 | OPERATIVE REPORT ---
DATE OF SERVICE: 09/07/2022 ATTENDING PRIMARY CARE PHYSICIAN: Barney Chu DO. ADMITTING PHYSICIAN: Marilynn Mustafa DO. SURGEON: Concha Oliver M.D. INDICATIONS: The patient is an 87-year-old male who presented with a 2-day history of pain in the right upper abdominal quadrant, which was associated with nausea and vomiting. A CT scan was performed, which did show gallbladder wall distention as well as pericholecystic fluid consistent with an acute cholecystitis. He was also found to have an umbilical hernia. The patient was also found to be in atrial fibrillation as well as rapid ventricular response. Cardiology was consulted and the patient was placed on medications for rate control. The patient also has a history of atrial fibrillation and is currently on Eliquis and Plavix. Since being admitted, it has been approximately 48 hours since the discontinuation of the anticoagulants. We will proceed with a laparoscopic cholecystectomy as well as a laparoscopic umbilical hernia repair with mesh. DESCRIPTION OF PROCEDURE: The patient was brought to the operating room, laid supine on the table. After adequate IV pain sedative medications and general endotracheal intubation, the abdomen was prepped and draped in standard surgical fashion. 0.5% Marcaine with epinephrine was used to anesthetize the overlying skin in the left upper abdominal quadrant transverse skin incision made using a #15 blade. An 0 silk suture was applied to the medial aspect of the incision for traction and a Veress needle inserted with a low opening pressure of 0 mmHg. The abdomen was then insufflated to 15 mmHg pressure. The Veress needle was removed and a 5 mm XL trocar placed followed by a 5 mm 45-degree angle laparoscope visualized the peritoneal cavity. A 4-quadrant abdominal exploration was performed. There was significantly inflamed gallbladder, which was distended with gallbladder wall thickening as well as early necrosis. Under direct visualization, we then proceeded to place a supraumbilical 10 mm port through the umbilical hernia site after the skin and hernia sac were anesthetized using 0.5% Marcaine with epinephrine and a transverse skin incision was made using a #15 blade. In a similar manner, a right upper abdominal quadrant 5 mm port was placed. The patient's gallbladder was then decompressed with a laparoscopic needle and suction tubing. The patient was then placed in reverse Trendelenburg position as well as planed right side up, left side down. The fundus of the gallbladder was retracted anteriorly and superiorly. The hepatoduodenal adhesions were then taken down bluntly using a Maryland dissector. The hepatoduodenal ligament was then dissected using blunt dissection as well as electrocautery on the hook instrument as well as the Maryland dissector. The entire critical view of safety was identified including the triangle of Calot as well as the cystic duct and artery as the only two structures going into the gallbladder as well as the cystic plate behind the proximal gallbladder. A timeout was then taken and the cystic duct and artery were then clipped proximally and distally and cut with an EndoShears. The gallbladder was then dissected off of the liver bed using cautery on the hook instrument with visualization of good hemostasis as well as no leaking ducts of Luschka. The gallbladder was removed through the 10 mm port site using an EndoCatch bag. We then proceeded with a laparoscopic umbilical hernia repair and the hernia sac was dissected out from the 10 mm port incision site using electrocautery. The fascial defect was only approximately 2 cm in size and the mesh was placed into the defect and tacked to the abdominal wall using absorbable tacks. We then proceeded with transfascial sutures in 4 quadrants using 0 Prolene interrupted sutures. The base of the umbilicus was then imbricated onto the mesh and the subcutaneous tissue was reapproximated using 3-0 Vicryl interrupted sutures. Skin was closed using 4-0 Monocryl running subcuticular suture. Wounds were then cleaned and covered with Dermabond. The umbilicus was then filled with tonsil sponges followed by 4 x 4 gauze followed by large Op-Site and abdominal binder. The patient tolerated the procedure well. POSTOPERATIVE PLAN: We will start IV and oral pain medication as well as a clear liquid diet. Once he was tolerating clears with good pain control with oral pain medications, ambulating well, we will discharge him home where we are. We will await Cardiology's decision on discharge as well. He may start anticoagulation at any time. He will be instructed with no heavy lifting or exertion over the next 2 weeks report. Job ID: [id number] DocumentID: [id number] Dictated Date: 09/07/2022 13:19:46 Information Technology Teacher Date: 09/07/2022 14:14:00 Dictated By: CONCHA OLIVER MD
--- NOTE | 2022-09-07 14:30 | Diagnostic Imaging Report ---
INDICATION: Abnormal lung sounds immediately post extubation for laparoscopic cholecystectomy. TECHNIQUE: Single view chest 1:54 PM. CORRELATION STUDY: 03/24/2022 FINDINGS: Heart size and mediastinum are enlarged and prominent. Vasculature overall slightly increased. Likely bibasilar areas of atelectasis. No definitive consolidating infiltrate. Question of small right pleural effusion. Loop recorder device projects over the left mid chest. IMPRESSION: 1. Cardiac enlargement with what appears to be very slight increased vascular congestion but with evidence of overt failure. Suspect small right pleural effusion. Dictated by: Dictated on workstation # [id number]
[2022-09-07] MEDS ORDERED: LIDOCAINE UROJET 2% GEL 10 ML PKG ONE (14:40)
[2022-09-07] MEDS ORDERED: FUROSEMIDE 40 MG/4 ML INJ (LASIX) IVP NR (15:00)
[2022-09-07] MEDS ORDERED: fentaNYL INJ 100 MCG/2 ML AMP IVP PRN (15:00)
--- NOTE | 2022-09-07 15:11 | Tele-ICU Progress Note ---
Progress Note s/p laparoscopic cholecystectomy , laparoscopic umbilical hernia repair extubated in PACU , received 2 L IVF in ER In ICU on BIPAP 80% , 15/8 rr 23 550 MV 12 L AAO , c/o pain cardizem gtt 15 hr 125 128/890 cxr reviewed - venous congestion will give lasix x1 , pain control cont on bipap now , reassess in 1 h if can take off replace K RN to reach out if any questions or concerns=- discussed with RN A total of 15 minutes of critical care time was devoted to this patient today, required to treat and/or prevent further deterioration of critical care condition ( as above ) I am remotely monitoring this patient from another state. I am unable to do the bedside exam, and history/physical and pertinent information is taken from other notes in the computer and bedside staff. . Focused Exam Height, Weight, BMI Height: 5'8.00" Weight: 185lbs. 0.0oz. 83.126621kj; 26.48 BMI Method:Stated SAMUEL ALVAREZ MD Sep 07, 2022 15:11
--- NOTE | 2022-09-07 15:12 | Anesthesia-General Post-Op ---
General Patient Condition Mental Status/LOC: Same as Preop Cardiovascular: Satisfactory Nausea/Vomiting: Absent Respiratory: Satisfactory Pain: Controlled Complications: Absent Post Op Complications Complications None Follow Up Care/Instructions Patient Instructions None needed. Anesthesia/Patient Condition Patient Condition Patient is doing well, no complaints, stable vital signs, no apparent adverse anesthesia problems. No complications reported per nursing. DARYL IRELAND CRNA Sep 07, 2022 15:12
[2022-09-07] MEDS: NS IV 1000 ML 1,000 ML IV SCH (15:23)
[2022-09-07] MEDS: morphine INJ 4 MG/ML 1 ML (VIAL/SYRINGE) IV PRN (16:15)
[2022-09-07] MEDS ORDERED: LIDOCAINE UROJET 2% GEL 10 ML PKG TOP ONE (16:30)
[2022-09-07] MEDS: HYDROcodone/APAP 7.5 MG/325 MG (LORTAB, LORCET PLUS) TABLET PO PRN ×2 (19:48→23:46)
[2022-09-08] MEDS: dilTIAZem DRIP PRE-MIX 125 ML IV SCH ×3 (00:50→20:11)
[2022-09-08] MEDS: NS IV 1000 ML 1,000 ML IV SCH ×2 (00:50→13:26)
[2022-09-08 04:48] LABS: BASOPHILS % (AUTO) 0 % (0-10); EOSINOPHILS # (AUTO) 0.1 10^3/uL (0.0-0.3); EOSINOPHILS % (AUTO) 1 % (0-10); HEMATOCRIT 40 % (40-54); LYMPHOCYTES # (AUTO) 0.9 10^3/uL (1.0-4.0); LYMPHOCYTES % (AUTO) 8 % (12-44); MEAN CORPUSCULAR HEMOGLOBIN 31 pg (25-34); MEAN CORPUSCULAR HGB CONC 33 g/dL (32-36); MEAN CORPUSCULAR VOLUME 93 fL (80-99); MEAN PLATELET VOLUME 11.2 fL (9.0-12.2); MONOCYTES # (AUTO) 1.3 10^3/uL (0.0-1.0); MONOCYTES % (AUTO) 11 % (0-12); NEUTROPHILS # (AUTO) 9.6 10^3/uL (1.8-7.8); NEUTROPHILS % (AUTO) 80 % (42-75); PLATELET COUNT 194 10^3/uL (130-400); WHITE BLOOD COUNT 11.9 10^3/uL (4.3-11.0)
[2022-09-08 05:00] LABS: ALBUMIN 3.3 GM/DL (3.2-4.5); POTASSIUM 3.3 MMOL/L (3.6-5.0)
[2022-09-08 05:01] LABS: CALCIUM 8.4 MG/DL (8.5-10.1)
[2022-09-08 05:02] LABS: TOTAL PROTEIN 6.1 GM/DL (6.4-8.2)
[2022-09-08 05:04] LABS: BILIRUBIN,TOTAL 1.3 MG/DL (0.1-1.0)
[2022-09-08 05:06] LABS: CREATININE SERUM 1.34 MG/DL (0.60-1.30)
[2022-09-08 05:09] LABS: MAGNESIUM 2.3 MG/DL (1.6-2.4)
[2022-09-08] MEDS: HYDROcodone/APAP 7.5 MG/325 MG (LORTAB, LORCET PLUS) TABLET PO PRN ×2 (05:20→17:31)
[2022-09-08] MEDS: MAGNESIUM 1 GM/100 ML IVPB 100 ML IV SCH (05:25)
[2022-09-08] MEDS: KCL 20 MEQ TAB (K-DUR) PO SCH (05:25)
[2022-09-08] MEDS: POTASSIUM CL 10MEQ/50ML IVPB 50 ML IV SCH (05:26)
[2022-09-08] MEDS: PIPERACILLIN SODIUM/TAZOBACTAM 4.5 GM in NS (IVPB) 100 ML IV SCH ×3 (05:57→22:32)
[2022-09-08] MEDS: meTOprolol 5 MG/5 ML (LOPRESSOR) VIAL IV SCH ×4 (05:57→23:21)
--- NOTE | 2022-09-08 06:05 | Progress Note ---
Subjective Date Seen by a Provider: Sep 08, 2022 Time Seen by a Provider: 11:00 Subjective/Events-last exam Patient doing a lot better A. fib with RVR requiring diltiazem at rate of 20 now No pain No nausea Son at bedside Review of Systems General: Fatigue, Malaise Objective Exam Last Set of Vital Signs Vital Signs Date Time Temp Pulse Resp B/P (MAP) Pulse Ox O2 Delivery O2 Flow Rate FiO2 09/08/22 05:00 129 19 99 Nasal Cannula 5.00 09/08/22 04:00 36.3 09/05/22 22:20 21 Capillary Refill : Less Than 3 SecondsLess Than 3 Seconds I&O Intake and Output 09/08/22 00:00 Intake Total 550 ml Output Total 875 ml Balance -325 ml Intake Oral 250 ml IV Total 300 ml Output Urine Total 875 ml # Voids 2 # Bowel Movements 2 General: Alert, Oriented X3, Cooperative, No Acute Distress Lungs: Clear to Auscultation, Normal Air Movement Heart: Other (Irregular irregular and tachycardic) Neuro: Normal Speech, Strength at 5/5 X4 Ext, Normal Tone Psych/Mental Status: Mental Status NL, Mood NL Results Lab Laboratory Tests 09/08/22 04:15: White Blood Count 11.9H, Red Blood Count 4.24L, Hemoglobin 13.0L, Hematocrit 40, Mean Corpuscular Volume 93, Mean Corpuscular Hemoglobin 31, Mean Corpuscular Hemoglobin Concent 33, Red Cell Distribution Width 14.4, Platelet Count 194, Mean Platelet Volume 11.2, Immature Granulocyte % (Auto) 1, Neutrophils (%) (Auto) 80H, Lymphocytes (%) (Auto) 8L, Monocytes (%) (Auto) 11, Eosinophils (%) (Auto) 1, Basophils (%) (Auto) 0, Neutrophils # (Auto) 9.6H, Lymphocytes # (Auto) 0.9L, Monocytes # (Auto) 1.3H, Eosinophils # (Auto) 0.1, Basophils # (Auto) 0.0, Immature Granulocyte # (Auto) 0.1, Sodium Level 137, Potassium Level 3.3L, Chloride Level 103, Carbon Dioxide Level 20L, Anion Gap 14, Blood Urea Nitrogen 25H, Creatinine 1.34H, Estimat Glomerular Filtration Rate 52, BUN/Creatinine Ratio 19, Glucose Level 134H, Calcium Level 8.4L, Corrected Calcium 9.0, Magnesium Level 2.3, Total Bilirubin 1.3H, Aspartate Amino Transf (AST/SGOT) 104H, Alanine Aminotransferase (ALT/SGPT) 122H, Alkaline Phosphatase 113, Total Protein 6.1L, Albumin 3.3 Assessment/Plan Assessment/Plan Assess & Plan/Chief Complaint Assessment: Acute cholecystitischolecystectomy postop day #1 A. fib with RVR maintained on diltiazem drip History of chronic atrial fibrillation CHF Hypertension CAD Status post cardiac arrest at home March 2022 Plan: Diltiazem drip ICU Cardiology Supportive care KAREN JJ DO Sep 08, 2022 06:05
[2022-09-08] MEDS: morphine INJ 4 MG/ML 1 ML (VIAL/SYRINGE) IV PRN ×2 (08:12→13:30)
[2022-09-08] MEDS: meTOproloL SUCCINATE 50 MG (TOPROL XL) TAB PO SCH (08:27)
[2022-09-08] MEDS: DOCUSATE SODIUM 100 MG (COLACE) CAP PO SCH ×2 (08:27→20:10)
[2022-09-08] MEDS: SENNOSIDES 8.6 MG (SENOKOT) TAB PO SCH ×2 (08:27→20:10)
[2022-09-08] MEDS ORDERED: KCL 20 MEQ TAB (K-DUR) PO ONE ×2 (09:00→11:00)
--- NOTE | 2022-09-08 10:14 | Cardiology Progress Note ---
Subjective Date Seen by Provider: Sep 08, 2022 Time Seen by Provider: 10:12 Subjective/Events-last exam Patient was seen at bedside, laying down comfortably, still having shortness of breath, had an episode of acute respiratory failure postoperatively required BiPAP. Reporting improvement Review of Systems General: No Chills, No Night Sweats; Fatigue; No Malaise, No Appetite, No Other HEENT: No Head Aches, No Visual Changes, No Eye Pain, No Ear Pain, No Dysphasia , No Sinus Congestion, No Post Nasal Drip, No Sore Throat, No Other Pulmonary: Dyspnea; No Cough, No Pleuritic Chest Pain, No Other Cardiovascular: No: Chest Pain, Palpitations, Orthopnea, Paroxysmal Noc. Dyspnea, Edema, Lt Headedness, Other Objective-Cardiology Exam Last Set of Vital Signs Vital Signs 09/05/22 09/08/22 09/08/22 22:20 06:00 07:18 Pulse 125 Resp 23 Pulse Ox 99 O2 Delivery Nasal Cannula O2 Flow Rate 5.00 FiO2 21 I&O Intake and Output 09/08/22 00:00 Intake Total 550 ml Output Total 875 ml Balance -325 ml Intake Oral 250 ml IV Total 300 ml Output Urine Total 875 ml # Voids 2 # Bowel Movements 2 General: Alert, Oriented X3, Cooperative, No Acute Distress HEENT: Atraumatic, PERRLA Neck: Supple, No JVD, No Thyromegaly Lungs: Clear to Auscultation, Normal Air Movement Heart: Normal S1, Normal S2, No Murmurs, Other (Atrial fibrillation with rapid ventricular response) Abdomen: Normal Bowel Sounds, Soft, No Hepatosplenomegaly, No Masses, Other (Abdominal pain postoperatively) Extremities: No Clubbing, No Cyanosis, No Edema, Normal Pulses, No Tenderness/Swelling Skin: No Breakdown, No Significant Lesion Neuro: Normal Speech, Normal Tone, Sensation Intact Psych/Mental Status: Mental Status NL, Mood NL Results Lab Laboratory Tests 09/08/22 04:15 A/P-Cardiology Admission Diagnosis Acute cholecystitis Coronary artery disease Permanent atrial fibrillation Hypertension Assessment/Plan Status post acute respiratory failure postoperatively on September 07, 2022 required BiPAP. Better at this time on nasal cannula Acute cholecystitis, status postcholecystectomy done on September 07, 2022 recovering slowly. Atrial fibrillation with rapid ventricular response, history of permanent atrial fibrillation Started on Cardizem drip and will continue to titrate, restart home medication and monitor blood pressure. Status post acute congestive heart failure with fluid overload postoperatively, history of congestive heart failure with chronic compensated left ventricular diastolic dysfunction 2D echo was done in March 2022 with normal left ventricular systolic function ejection fraction 60 to 65% with dilated left atrium and pulmonary hypertension with PA pressure 40 to 45 mmHg Coronary artery disease, history of non-ST elevation myocardial infarction in March 2022 - Cardiac cath of 07-14-18: 90% qto-dh-rreeti vessel stenosis of the left anter ior descending artery within a small caliber vessel to which balloon angioplasty was carried out which reduced the stenosis to less than 50%. The rest of the coronary vessels have moderate diffuse disease. There is a patent stent in the right coronary with a 50% in-stent restenosis (unchanged compared to previous study). Elevated left ventricular end-diastolic pressure. - MPI of 12/07/19: no ischemia or infarction, LVEF 48% (appeared to be higher, subjectively) - Card cath on 03/25/22: 90-85 prox and mid LAD stenosis treated with PTCA and then 2.25 x 23 mm GABRIELA, distal LAD, distal LCX, and prox RI have severe disease that is not amenable to intervention, RCA is dominant with patent prox stent with up to 50 instent and distal RCA with up to 50 stenoses, LVEDP 22 mmHg Has been maintained on aspirin and Plavix last taken on September 05, 2022. History of syncope and collapse reported pulseless per family on March 24, 2022. Had chest compression Loop monitor implanted on March 26, 2022. History of rib fractures after chest compression Hypertension, continue to monitor blood pressure Hyperlipidemia, maintained on statin. Currently on hold History of umbilical hernia. Questionable underlying sleep apnea Lumbar spondylosis and spinal stenosis, followed by IAN Fontaine MD Sep 08, 2022 10:14
[2022-09-08] MEDS: HYDROmorphone 2 MG/ML VIAL (DILAUDID) IV PRN ×2 (10:35→22:44)
--- NOTE | 2022-09-08 10:38 | Tele-ICU Progress Note ---
Subjective Date Seen by a Provider: Sep 08, 2022 Time Seen by a Provider: 10:37 Subjective/Events-last exam (Tele-ICU Physician , Progress Note ) Service provided via interactive audio and video telecommunications E-CARE system to a patient admitted to ICU bed in [facility]. Available chart/ vitals / labs / Images reviewed Video assessment done using teleICU camera, rest of exam as per RN Discussed with RN Events overnight : Afebrile hemodynamically stable Respiratory - ra I/O = pos 1800 Drips: ns 80h Pressors- no Consultants: sx Hospital course: (09/05) Admitted an 87y/o with acute cholecystits. On Plavix and Eliquis and will wait 48 hours for OR. 09/07-s/p laparoscopic cholecystectomy , laparoscopic umbilical hernia repair extubated in PACU , In ICU on BIPAP 80% , 15/ rr 23 550 MV 12 L Patient is seen today due to persistent A/P Acute cholecystitis, not on shock -s/p laparoscopic cholecystectomy , laparoscopic umbilical hernia repair 09/07 - Zosyn -pain control Acute resp failure post op -extubated in PACU In ICU on BIPAP 80% , 158 rr 23 550 MV 12 L for 2 h -received 2 L IVF in ER - responded to lasix , IVF stopped h/o PAF - on eliquis [employer]- ON HOLD NOW < ON FULL DOSE LOVENOX x1 09/06 -on cardizem gtt as per cards - still high RR - will try increase pain meds , give one dose NS 500 -Echo 03/2022 - EF 50% JESICA - mild ,hpld hydration , follow CAD. - as per cardiology Pulm HTN - RVSP 50 03/2023 - monitor fluid status carefuly Nutrition - advancing as per sx Lines : periph , (Central Line Necessity Reviewed) Hassan: 09/07 OG: Nutrition: as per sx Analgesia: Anxiety/ delirium VTE Prophylaxis: on hold , SCD Stress Ulcer Prophylaxis: Plans in collaboration with bedside consultants and IM MDs. Discussed with RN to reach out if any questions or concerns A total of 25 minutes of critical care time was devoted to this patient today, required to treat and/or prevent further deterioration of critical care condition ( as above ) I am remotely monitoring this patient from another state. I am unable to do the bedside exam, and history/physical and pertinent information is taken from other notes in the computer and bedside staff. + Sepsis Event Evaluation Height, Weight, BMI Height: 5'8.00" Weight: 185lbs. 0.0oz. 83.474141im; 26.48 BMI Method:Stated Exam Exam Patient acknowledged, consented, and participated in this virtual visit which was conducted using real time audio/video Vital Signs Date Time Temp Pulse Resp B/P (MAP) Pulse Ox O2 Delivery O2 Flow Rate FiO2 09/08/22 10:34 125 117/78 09/08/22 07:18 125 09/08/22 06:00 129 23 99 Nasal Cannula 5.00 09/08/22 05:00 129 19 99 Nasal Cannula 5.00 09/08/22 04:00 36.3 09/08/22 04:00 125 15 117/78 (91) 98 Nasal Cannula 5.00 09/08/22 04:00 99 Nasal Cannula 5.00 09/08/22 03:00 101 14 118/73 (88) 99 Nasal Cannula 5.00 09/08/22 02:00 128 17 120/73 (89) 99 Nasal Cannula 5.00 09/08/22 01:00 101 17 120/86 (97) 99 Nasal Cannula 5.00 09/08/22 01:00 118 09/08/22 00:00 101 19 116/79 (91) 98 Nasal Cannula 5.00 09/08/22 00:00 36.5 09/07/22 23:59 99 Nasal Cannula 5.00 09/07/22 23:00 129 32 119/82 (94) 97 Nasal Cannula 5.00 09/07/22 22:00 129 21 122/82 (95) 98 Nasal Cannula 5.00 09/07/22 21:00 123 23 128/81 (97) 97 Nasal Cannula 5.00 09/07/22 20:00 99 Nasal Cannula 5.00 09/07/22 20:00 126 18 126/79 (95) 98 Nasal Cannula 5.00 09/07/22 19:48 36.5 Nasal Cannula 5.00 09/07/22 19:41 96 Nasal Cannula 5.00 09/07/22 19:00 98 09/07/22 19:00 89 18 124/82 (96) 97 Nasal Cannula 5.00 09/07/22 18:00 99 20 103/76 (85) 100 Nasal Cannula 5.00 09/07/22 17:00 85 16 109/62 (78) 100 Nasal Cannula 5.00 09/07/22 16:00 97 Nasal Cannula 5.00 09/07/22 16:00 79 20 107/55 (72) 100 Nasal Cannula 5.00 09/07/22 15:00 90 31 105/64 (78) 100 NIV Bilevel 75.00 09/07/22 14:20 36.2 22 136/97 (110) 98 NIV Bilevel 10.00 09/07/22 14:20 NIV Bilevel 10.00 09/07/22 14:10 27 135/87 (103) 93 NIV Bilevel 10.00 09/07/22 14:05 NIV Bilevel 10.00 09/07/22 14:00 116 25 136/92 (107) NIV Bilevel 75.00 09/07/22 14:00 31 130/116 (121) 89 NIV Bilevel 10.00 09/07/22 14:00 79 107/55 09/07/22 13:50 28 136/85 (102) 100 NIV Bilevel 10.00 09/07/22 13:50 NIV Bilevel 10.00 09/07/22 13:40 21 113/95 (101) 89 OxyMask 10.00 09/07/22 13:35 OxyMask 10.00 09/07/22 13:30 19 143/83 (103) 86 OxyMask 10.00 09/07/22 13:22 T Piece 10.00 09/07/22 13:22 36.3 19 118/98 (105) 96 T Piece 09/07/22 13:00 101 09/07/22 12:45 95 24 95 75.00 I & O 09/08/22 07:00 Intake Total 950 ml Output Total 1350 ml Balance -400 ml Height & Weight Height: 5'8.00" Weight: 185lbs. 0.0oz. 83.504470yq; 26.48 BMI Method:Stated General Appearance: Anxious, Chronically ill, Mild Distress, Thin HEENT: PERRL/EOMI, Normal ENT Inspection, Pharynx Normal Neck: Full Range of Motion, Normal Inspection, Non Tender, Supple, Carotid Bruit Respiratory: Chest Non Tender, Lungs Clear, Normal Breath Sounds, No Accessory Muscle Use, No Respiratory Distress Cardiovascular: No Edema, No Gallop, No JVD, No Murmur, Normal Peripheral Pulses, Irregularly Irregular, Tachycardia Capillary Refill: Less Than 3 Seconds Peripheral Pulses: 1+ Dorsalis Pedis (R), 1+ Left Dors-Pedis (L) (See free text.); 2+ Radial Pulses (R), 2+ Radial Pulses (L) Gastrointestinal: soft, tenderness (right upper quadrant), other (umbilical he rnia, b/l inguinal) Extremity: Normal Capillary Refill, Normal Inspection, Normal Range of Motion, Non Tender, No Calf Tenderness, No Pedal Edema Neurologic/Psychiatric: Alert, Oriented x3, No Motor/Sensory Deficits, Normal Mood/Affect, risk management manager II-XII Norm as Tested Skin: Normal Color, Warm/Dry Lymphatic: No Adenopathy Results Lab Laboratory Tests 09/07/22 04:13 09/08/22 04:15 Assessment/Plan Assessment/Plan 1 SAMUEL ALVAREZ MD Sep 08, 2022 10:38
[2022-09-08] MEDS: RT-ALBUTEROL SULF 2.5 MG/3 ML PRE-MIX VIAL INH SCH ×2 (10:40→22:16)
--- NOTE | 2022-09-08 10:58 | Progress Note ---
Subjective Date Seen by a Provider: Sep 08, 2022 Time Seen by a Provider: 10:00 Subjective/Events-last exam doing well. tolerating diet. having BM's. pain controlled. appears tachycardic right now. no fever/chills. Objective Exam Vital Signs Date Time Temp Pulse Resp B/P (MAP) Pulse Ox O2 Delivery O2 Flow Rate FiO2 09/08/22 10:40 97 Nasal Cannula 5.00 09/08/22 10:34 125 117/78 09/08/22 07:18 125 09/08/22 06:00 129 23 99 Nasal Cannula 5.00 09/08/22 05:00 129 19 99 Nasal Cannula 5.00 09/08/22 04:00 36.3 09/08/22 04:00 125 15 117/78 (91) 98 Nasal Cannula 5.00 09/08/22 04:00 99 Nasal Cannula 5.00 09/08/22 03:00 101 14 118/73 (88) 99 Nasal Cannula 5.00 09/08/22 02:00 128 17 120/73 (89) 99 Nasal Cannula 5.00 09/08/22 01:00 101 17 120/86 (97) 99 Nasal Cannula 5.00 09/08/22 01:00 118 09/08/22 00:00 101 19 116/79 (91) 98 Nasal Cannula 5.00 09/08/22 00:00 36.5 09/07/22 23:59 99 Nasal Cannula 5.00 09/07/22 23:00 129 32 119/82 (94) 97 Nasal Cannula 5.00 09/07/22 22:00 129 21 122/82 (95) 98 Nasal Cannula 5.00 09/07/22 21:00 123 23 128/81 (97) 97 Nasal Cannula 5.00 09/07/22 20:00 99 Nasal Cannula 5.00 09/07/22 20:00 126 18 126/79 (95) 98 Nasal Cannula 5.00 09/07/22 19:48 36.5 Nasal Cannula 5.00 09/07/22 19:41 96 Nasal Cannula 5.00 09/07/22 19:00 98 09/07/22 19:00 89 18 124/82 (96) 97 Nasal Cannula 5.00 09/07/22 18:00 99 20 103/76 (85) 100 Nasal Cannula 5.00 09/07/22 17:00 85 16 109/62 (78) 100 Nasal Cannula 5.00 09/07/22 16:00 97 Nasal Cannula 5.00 09/07/22 16:00 79 20 107/55 (72) 100 Nasal Cannula 5.00 09/07/22 15:00 90 31 105/64 (78) 100 NIV Bilevel 75.00 09/07/22 14:20 36.2 22 136/97 (110) 98 NIV Bilevel 10.00 09/07/22 14:20 NIV Bilevel 10.00 09/07/22 14:10 27 135/87 (103) 93 NIV Bilevel 10.00 09/07/22 14:05 NIV Bilevel 10.00 09/07/22 14:00 116 25 136/92 (107) NIV Bilevel 75.00 09/07/22 14:00 31 130/116 (121) 89 NIV Bilevel 10.00 09/07/22 14:00 79 107/55 09/07/22 13:50 28 136/85 (102) 100 NIV Bilevel 10.00 09/07/22 13:50 NIV Bilevel 10.00 09/07/22 13:40 21 113/95 (101) 89 OxyMask 10.00 09/07/22 13:35 OxyMask 10.00 09/07/22 13:30 19 143/83 (103) 86 OxyMask 10.00 09/07/22 13:22 T Piece 10.00 09/07/22 13:22 36.3 19 118/98 (105) 96 T Piece 09/07/22 13:00 101 09/07/22 12:45 95 24 95 75.00 I & O 09/08/22 07:00 Intake Total 950 ml Output Total 1350 ml Balance -400 ml Capillary Refill : Less Than 3 SecondsLess Than 3 Seconds General Appearance: No Apparent Distress HEENT: PERRL/EOMI Neck: Full Range of Motion Respiratory: Decreased Breath Sounds Cardiovascular: Regular Rate, Rhythm Gastrointestinal: normal bowel sounds, non tender, soft Extremity: Normal Capillary Refill Neurologic/Psychiatric: Alert Skin: Normal Color Lymphatic: No Adenopathy Results Lab Laboratory Tests 09/08/22 04:15: White Blood Count 11.9H, Red Blood Count 4.24L, Hemoglobin 13.0L, Hematocrit 40, Mean Corpuscular Volume 93, Mean Corpuscular Hemoglobin 31, Mean Corpuscular Hemoglobin Concent 33, Red Cell Distribution Width 14.4, Platelet Count 194, Mean Platelet Volume 11.2, Immature Granulocyte % (Auto) 1, Neutrophils (%) (Auto) 80H, Lymphocytes (%) (Auto) 8L, Monocytes (%) (Auto) 11, Eosinophils (%) (Auto) 1, Basophils (%) (Auto) 0, Neutrophils # (Auto) 9.6H, Lymphocytes # (Auto) 0.9L, Monocytes # (Auto) 1.3H, Eosinophils # (Auto) 0.1, Basophils # (Auto) 0.0, Immature Granulocyte # (Auto) 0.1, Sodium Level 137, Potassium Level 3.3L, Chloride Level 103, Carbon Dioxide Level 20L, Anion Gap 14, Blood Urea Nitrogen 25H, Creatinine 1.34H, Estimat Glomerular Filtration Rate 52, BUN/Creatinine Ratio 19, Glucose Level 134H, Calcium Level 8.4L, Corrected Calcium 9.0, Magnesium Level 2.3, Total Bilirubin 1.3H, Aspartate Amino Transf (AST/SGOT) 104H, Alanine Aminotransferase (ALT/SGPT) 122H, Alkaline Phosphatase 113, Total Protein 6.1L, Albumin 3.3 Assessment/Plan Assessment/Plan Assess & Plan/Chief Complaint s/p laparoscopic cholecystectomy and umbilical hernia repair. diet as tolerated. ambulate. no heavy lifting exertion for 2 weeks. await HR control. ok to restart home OAC. CONCHA OLIVER MD Sep 08, 2022 10:58
[2022-09-08] MEDS ORDERED: DIGOXIN 0.25 MG/ML (LANOXIN) 2 ML AMP ONE (12:28)
[2022-09-08] MEDS ORDERED: DIGOXIN 0.25 MG/ML (LANOXIN) 2 ML AMP IV NR (12:30)
[2022-09-08] MEDS: NS IV 500 ML 500 ML IV SCH (13:27)
[2022-09-08] MEDS ORDERED: meTOprolol 5 MG/5 ML (LOPRESSOR) VIAL IV NR (16:00)
[2022-09-08 19:59] VITALS: BP 121/81
[2022-09-08] MEDS: APIXABAN 5 MG (ELIQUIS) TABLET PO SCH (20:10)
[2022-09-08] MEDS ORDERED: NS 500 ML IV BAG IV ONE (20:15)
[2022-09-08 23:36] VITALS: BP 117/92
[2022-09-09 03:08] LABS: BASOPHILS % (AUTO) 0 % (0-10); EOSINOPHILS % (AUTO) 0 % (0-10); HEMATOCRIT 40 % (40-54); HEMOGLOBIN 13.1 g/dL (13.3-17.7); LYMPHOCYTES # (AUTO) 0.7 10^3/uL (1.0-4.0); LYMPHOCYTES % (AUTO) 6 % (12-44); MEAN CORPUSCULAR HEMOGLOBIN 31 pg (25-34); MEAN CORPUSCULAR HGB CONC 33 g/dL (32-36); MEAN CORPUSCULAR VOLUME 94 fL (80-99); MEAN PLATELET VOLUME 10.9 fL (9.0-12.2); MONOCYTES # (AUTO) 1.6 10^3/uL (0.0-1.0); MONOCYTES % (AUTO) 14 % (0-12); NEUTROPHILS # (AUTO) 8.7 10^3/uL (1.8-7.8); NEUTROPHILS % (AUTO) 78 % (42-75); PLATELET COUNT 234 10^3/uL (130-400); WHITE BLOOD COUNT 11.2 10^3/uL (4.3-11.0)
[2022-09-09 03:45] LABS: ALBUMIN 3.2 GM/DL (3.2-4.5); BILIRUBIN,TOTAL 1.2 MG/DL (0.1-1.0); CALCIUM 8.7 MG/DL (8.5-10.1); CREATININE SERUM 1.54 MG/DL (0.60-1.30); MAGNESIUM 2.3 MG/DL (1.6-2.4); POTASSIUM 3.4 MMOL/L (3.6-5.0); TOTAL PROTEIN 6.3 GM/DL (6.4-8.2)
[2022-09-09] MEDS: MAGNESIUM 1 GM/100 ML IVPB 100 ML IV SCH (05:31)
[2022-09-09] MEDS: POTASSIUM CL 10MEQ/50ML IVPB 50 ML IV SCH ×3 (05:31→06:18)
[2022-09-09] MEDS: KCL 20 MEQ TAB (K-DUR) PO SCH (05:32)
[2022-09-09] MEDS: meTOprolol 5 MG/5 ML (LOPRESSOR) VIAL IV SCH ×7 (06:03→23:47)
[2022-09-09] MEDS: PIPERACILLIN SODIUM/TAZOBACTAM 4.5 GM in NS (IVPB) 100 ML IV SCH ×3 (06:03→20:43)
[2022-09-09] MEDS: HYDROmorphone 2 MG/ML VIAL (DILAUDID) IV PRN ×5 (06:11→20:42)
--- NOTE | 2022-09-09 06:43 | Progress Note ---
Subjective Date Seen by a Provider: Sep 09, 2022 Time Seen by a Provider: 11:00 Subjective/Events-last exam Patient has distended abdomen and x-ray is consistent with ileus Family at bedside Patient appears to be uncomfortable Cardizem drip maintained along with IV metoprolol Supportive care will continue Review of Systems General: Fatigue, Malaise Gastrointestinal: Nausea, Abdominal Pain Objective Exam Last Set of Vital Signs Vital Signs Date Time Temp Pulse Resp B/P (MAP) Pulse Ox O2 Delivery O2 Flow Rate FiO2 09/09/22 06:00 135 23 137/85 (102) 95 OxyMask 5.00 09/09/22 00:23 50 09/08/22 04:00 36.3 Capillary Refill : Less Than 3 SecondsLess Than 3 Seconds I&O Intake and Output 09/09/22 00:00 Intake Total 1675 ml Output Total 1375 ml Balance 300 ml Intake Oral 1450 ml IV Total 225 ml Output Urine Total 1375 ml General: Alert, Oriented X3, Cooperative, No Acute Distress Lungs: Clear to Auscultation, Normal Air Movement Heart: Regular Rate, Normal S1, Normal S2, No Murmurs Abdomen: Other (Distended with absent bowel sounds) Psych/Mental Status: Mental Status NL, Mood NL Results Lab Laboratory Tests 09/09/22 02:55: White Blood Count 11.2H, Red Blood Count 4.29L, Hemoglobin 13.1L, Hematocrit 40, Mean Corpuscular Volume 94, Mean Corpuscular Hemoglobin 31, Mean Corpuscular Hemoglobin Concent 33, Red Cell Distribution Width 14.4, Platelet Count 234, Mean Platelet Volume 10.9, Immature Granulocyte % (Auto) 1, Neutrophils (%) (Auto) 78H, Lymphocytes (%) (Auto) 6L, Monocytes (%) (Auto) 14H, Eosinophils (%) (Auto) 0, Basophils (%) (Auto) 0, Neutrophils # (Auto) 8.7H, Lymphocytes # (Auto) 0.7L, Monocytes # (Auto) 1.6H, Eosinophils # (Auto) 0.0, Basophils # (Auto) 0.0, Immature Granulocyte # (Auto) 0.1, Sodium Level 138, Potassium Level 3.4L, Chloride Level 102, Carbon Dioxide Level 24, Anion Gap 12, Blood Urea Nitrogen 35H, Creatinine 1.54H, Estimat Glomerular Filtration Rate 44, BUN/Creatinine Ratio 23, Glucose Level 147H, Calcium Level 8.7, Corrected Calcium 9.3, Magnesium Level 2.3, Total Bilirubin 1.2H, Aspartate Amino Transf (AST/SGOT) 51H, Alanine Aminotransferase (ALT/SGPT) 80H, Alkaline Phosphatase 105, Total Protein 6.3L, Albumin 3.2 Assessment/Plan Assessment/Plan Assess & Plan/Chief Complaint Assessment: Acute cholecystitischolecystectomy postop day #2 Postop ileus on 09/09/2022 A. fib with RVR maintained on diltiazem drip History of chronic atrial fibrillation CHF Hypertension CAD Status post cardiac arrest at home March 2022 Plan: Diltiazem drip ICU Cardiology Supportive care N.p.oKAREN VASQUEZ DO Sep 09, 2022 06:43
--- NOTE | 2022-09-09 07:39 | Diagnostic Imaging Report ---
INDICATION: Tachycardia. TECHNIQUE: Single view chest 7:26 AM. CORRELATION STUDY: 09/07/2022 FINDINGS: Heart size enlarged. Loop recorder device left mid heart. Vasculature overall within normal limits. Significantly limited depth of inspiration. Given this, lungs appear generally clear. There is rather prominent gas distention of what appears to be largely colon in the upper abdomen. IMPRESSION: 1. Cardiac enlargement without overt failure. No significant infiltrate. Significant hypoventilation. 2. Prominent gas distention gastrointestinal track, nonspecific on this examination. Dictated by: Dictated on workstation # [id number]
[2022-09-09] MEDS: dilTIAZem DRIP PRE-MIX 125 ML IV SCH ×2 (08:37→15:46)
--- NOTE | 2022-09-09 08:51 | Cardiology Progress Note ---
Subjective Date Seen by Provider: Sep 09, 2022 Time Seen by Provider: 08:49 Subjective/Events-last exam Patient was seen at bedside, no new complain Having distended abdomen. Review of Systems General: No Chills, No Night Sweats, No Fatigue, No Malaise, No Appetite, No Other HEENT: No Head Aches, No Visual Changes, No Ear Pain, No Dysphasia, No Sinus Congestion, No Post Nasal Drip, No Sore Throat, No Other Pulmonary: Dyspnea; No Cough, No Pleuritic Chest Pain, No Other Cardiovascular: No: Chest Pain, Palpitations, Orthopnea, Paroxysmal Noc. Dyspnea, Edema, Lt Headedness, Other Objective-Cardiology Exam Last Set of Vital Signs Vital Signs 09/09/22 09/09/22 09/09/22 09/09/22 00:23 07:49 08:00 08:37 Temp 37.6 Pulse 135 Resp 23 B/P (MAP) 145/84 Pulse Ox 91 O2 Delivery OxyMask O2 Flow Rate 5.00 FiO2 50 I&O Intake and Output 09/09/22 00:00 Intake Total 1675 ml Output Total 1375 ml Balance 300 ml Intake Oral 1450 ml IV Total 225 ml Output Urine Total 1375 ml General: Alert, Oriented X3, Cooperative, No Acute Distress HEENT: Atraumatic, PERRLA Neck: Supple, No JVD, No Thyromegaly Lungs: Clear to Auscultation, Normal Air Movement Heart: Other (Tachycardia) Abdomen: No Hepatosplenomegaly, Other (Distended abdomen with absent bowel sounds) Extremities: No Clubbing, No Cyanosis, No Edema, Normal Pulses, No Tenderness/Swelling Skin: No Breakdown, No Significant Lesion Neuro: Normal Speech, Strength at 5/5 X4 Ext, Normal Tone Psych/Mental Status: Mental Status NL, Mood NL Results Lab Laboratory Tests 09/09/22 02:55 A/P-Cardiology Admission Diagnosis Acute cholecystitis Coronary artery disease Permanent atrial fibrillation Hypertension Assessment/Plan Status post acute respiratory failure postoperatively on September 07, 2022 required BiPAP. Better at this time on nasal cannula Acute cholecystitis, status postcholecystectomy done on September 07, 2022. Distended abdomen with absent bowel sounds, probably postoperative ileus. Recommend keeping him n.p.o. and start NG tube with continuous suction, will not marianna Dr. Napoles Atrial fibrillation/atrial flutter, currently tachycardic. History of permanent atrial fibrillation. Cannot tolerate oral medication due to postoperative ileus. I will continue with Cardizem drip, Lopressor IV, switching Eliquis to Lovenox Continue to monitor heart rate and blood pressure Status post acute congestive heart failure with fluid overload postoperatively, history of congestive heart failure with chronic compensated left ventricular diastolic dysfunction 2D echo was done in March 2022 with normal left ventricular systolic function ejection fraction 60 to 65% with dilated left atrium and pulmonary hypertension with PA pressure 40 to 45 mmHg Coronary artery disease, history of non-ST elevation myocardial infarction in March 2022 - Cardiac cath of 07-14-18: 90% [id number]-[id number] vessel stenosis of the left anterior descending artery within a small caliber vessel to which balloon angioplasty was carried out which reduced the stenosis to less than 50%. The rest of the coronary vessels have moderate diffuse disease. There is a patent stent in the right coronary with a 50% in-stent restenosis (unchanged compared to previous study). Elevated left ventricular end-diastolic pressure. - MPI of 12/07/19: no ischemia or infarction, LVEF 48% (appeared to be higher, subjectively) - Card cath on 03/25/22: 90-85 prox and mid LAD stenosis treated with PTCA and then 2.25 x 23 mm GABRIELA, distal LAD, distal LCX, and prox RI have severe disease that is not amenable to intervention, RCA is dominant with patent prox stent with up to 50 instent and distal RCA with up to 50 stenoses, LVEDP 22 mmHg Has been maintained on aspirin and Plavix last taken on September 05, 2022. History of syncope and collapse reported pulseless per family on March 24, 2022. Had chest compression Loop monitor implanted on March 26, 2022. History of rib fractures after chest compression Hypertension, continue to monitor blood pressure Hyperlipidemia, maintained on statin. Currently on hold History of umbilical hernia. Questionable underlying sleep apnea Lumbar spondylosis and spinal stenosis, followed by IAN Fontaine MD Sep 09, 2022 08:51
--- NOTE | 2022-09-09 09:11 | Diagnostic Imaging Report ---
Clinical indications: Patient with abdominal distention post surgery. Nasogastric tube placement. Exam: KUB x-ray. Comparison: CT scan of the abdomen and pelvis without contrast dated 09/05/2022. Findings: There is interval development of multiple dilated loops of small bowel and colon seen. There is air in the sigmoid colon region. These findings may be related to ileus. There is no significant intra-abdominal free air. There are multiple curvilinear radiodense objects overlying the lower abdominal and upper pelvis region. Feeding tube is been placed in interim with distal portion overlying the expected region of the mid body of the stomach. Surgical clips are seen overlying the right upper quadrant which could be related to cholecystectomy changes. There are hypertrophic spurs involving the spine. Left hip arthroplasty noted. IMPRESSION: 1: There are curvilinear radiodense objects overlying the lower midline abdominal and pelvic region. Gauze packing outside of patient may be considered or other objects. Clinical correlation is suggested. 2: There is interval development of multiple dilated loops of small bowel and colon seen suspected to be related to an ileus. Clinical correlation would better evaluate. 3: Feeding tube is in place, as described above. This tube should be advanced at least another 10 cm for better positioning. Dictated by: Dictated on workstation # [id number]
[2022-09-09] MEDS: DOCUSATE SODIUM 100 MG (COLACE) CAP PO SCH ×2 (09:16→21:18)
[2022-09-09] MEDS: CLOPIDOGREL 75 MG (PLAVIX) TABLET PO SCH (09:17)
[2022-09-09] MEDS: SENNOSIDES 8.6 MG (SENOKOT) TAB PO SCH ×2 (09:18→21:18)
[2022-09-09] MEDS: morphine INJ 4 MG/ML 1 ML (VIAL/SYRINGE) IV PRN (09:28)
--- NOTE | 2022-09-09 10:32 | Tele-ICU Consult ---
History of Present Illness History of Present Illness Date Seen by Provider: Sep 09, 2022 Time Seen by Provider: 10:31 Date of Admission (Tele-ICU Physician , Progress Note ) Service provided via interactive audio and video telecommun[employer]Max E-CARE system to a patient admitted to ICU bed in [facility]. Available chart/ vitals / labs / Images reviewed Video assessment done using teleICU camera, rest of exam as per RN Discussed with RN Events overnight : Afebrile hemodynamically stable Respiratory - ra I/O = pos 1800 Drips: cardizem Pressors- no Consultants: sx Hospital course: (09/05) Admitted an 87y/o with acute cholecystits. On Plavix and Eliquis and will wait 48 hours for OR. 09/07-s/p laparoscopic cholecystectomy , laparoscopic umbilical hernia repair extubated in PACU , In ICU on BIPAP 80% , 15/8 rr 23 550 MV 12 L 09/08 - 5L NC , cardizem gtt 20 , digx1 , 1 L NS given 09/09- cardizem gtt 20 , NG placed , large gastric output , started on LOVENOX full dose Patient is seen today due to persistent resp insufficency , ICU care A/P Acute cholecystitis, not on shock -s/p laparoscopic cholecystectomy , laparoscopic umbilical hernia repair 09/07 - Zosyn to cont -pain controled with dilaudid - NG placed 09/09 -, large gastric output Acute resp failure post op -extubated in PACU In ICU on BIPAP 80% , 15/8 rr 23 550 MV 12 L for 2 h -received 2 L IVF in ER - responded to lasix , IVF stopped - on 5L o2 today , WITH ENLARGED ABDOME MIGHT NEED PRN NIPPV h/o PAF - 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 INTRAABDOMINAL PRESSURE - follow Ileus 09/09 - as per sx , NG in place CAD. - as per cardiology Pulm HTN - RVSP 50 03/2023 - monitor fluid status carefuly Nutrition - NPO 09/09 Lines : periph , (Central Line Necessity Reviewed) Hassan: 09/07 OG: Nutrition: back to NPO 09/09 Analgesia: Anxiety/ delirium VTE Prophylaxis: lovenox full dose 09/09 , SCD Stress Ulcer Prophylaxis: Plans in collaboration with bedside consultants and IM MDs. Discussed with RN to reach out if any questions or concerns A total of 32 minutes of critical care time was devoted to this patient today, required to treat and/or prevent further deterioration of critical care condition ( as above ) I am remotely monitoring this patient from another state. I am unable to do the bedside exam, and history/physical and pertinent information is taken from other notes in the computer and bedside staff. Reason for Visit: Coronary artery disease Allergies and Home Medications Allergies Coded Allergies: No Known Drug Allergies (Verified , 09/05/22) Home Medications Apixaban 5 Mg Tablet, 5 MG PO BID, (Reported) Clopidogrel Bisulfate 75 Mg Tablet, 75 MG PO DAILY, (Reported) Furosemide 40 Mg Tablet, 40 MG PO DAILY, (Reported) Hydrocodone/Acetaminophen 7.5 Mg-325 Mg Tablet, 1 EACH PO Q4H Prescribed by: CONCHA OLIVER on 09/07/22 1309 Metoprolol Succinate 50 Mg Tab.er.24h, 50 MG PO BID, (Reported) [place]-3/Dha/Epa/Fish Oil 1 Each Capsule.dr, 1 EACH PO DAILY, (Reported) Pantoprazole Sodium 40 Mg Tablet.dr, 40 MG PO HS, (Reported) Potassium Chloride 10 Meq Capsule.er, 10 MEQ PO HS, (Reported) Past Medical/Social/Family Hx Patient Social History Marrital Status: Employed/Student: retired Tobacco Use?: No Smoking Status: Never a Smoker Smokeless Tobacco Frequency: Never a User Use of E-Cig and/or Vaping dev: No Substance use?: No Alcohol Use?: Yes Alcohol type: Beer Alcohol Frequency: Rarely 1-2 DAILY Pt stated abuse/neglect: No Immunizations Up To Date Influenza Vaccine Up-to-Date: No; Not Current First/Initial COVID19 Vaccinat: 2020 Second COVID19 Vaccination Corey: 2020 Tetanus Booster (TDap): More Than 5 Years Hepatitis A: No Hepatitis B: No TB Skin Test: None Current Status Advance Directives: Yes Advance Directive Location: Home Communicates: Verbally Primary Language: Guatemalan Preferred Spoken Language: Guatemalan Is interpretation needed?: No Sensory deficits: Hearing impairment Implanted or Applied Medical D: Stents Review of Systems Constitutional: other Focused Exam Height, Weight, BMI Height: 5'8.00" Weight: 185lbs. 0.0oz. 83.569261st; 26.48 BMI Method:Stated Exam Exam Patient acknowledged, consented, and participated in this virtual visit which was conducted using real time audio/video Vital Signs Date Time Temp Pulse Resp B/P (MAP) Pulse Ox O2 Delivery O2 Flow Rate FiO2 09/09/22 10:00 113 17 116/67 (83) 94 OxyMask 5.00 09/09/22 09:15 37.6 09/09/22 09:00 134 24 140/87 (104) 90 OxyMask 5.00 09/09/22 08:37 135 145/84 09/09/22 08:00 134 23 130/84 (99) 91 OxyMask 5.00 09/09/22 07:49 37.6 09/09/22 07:00 130 19 152/92 (112) 94 OxyMask 5.00 09/09/22 07:00 122 09/09/22 06:00 135 23 137/85 (102) 95 OxyMask 5.00 09/09/22 05:00 137 19 144/88 (106) 94 OxyMask 5.00 09/09/22 04:14 16 96 OxyMask 5.00 09/09/22 04:00 95 OxyMask 5.00 09/09/22 04:00 135 16 135/88 (104) 97 NIV Bilevel 50.00 09/09/22 03:00 135 20 129/91 (104) 96 NIV Bilevel 50.00 09/09/22 02:38 134 147/85 09/09/22 02:00 134 20 147/85 (105) 96 NIV Bilevel 50.00 09/09/22 01:00 110 09/09/22 01:00 89 18 135/85 (102) 94 NIV Bilevel 50.00 09/09/22 00:23 91 NIV Bilevel 50 09/09/22 00:15 NIV Bilevel 50.00 09/09/22 00:00 96 15 121/82 (95) 93 Nasal Cannula 6.00 09/08/22 23:36 113 22 90 50.00 09/08/22 23:00 134 16 117/92 (100) 91 Nasal Cannula 6.00 09/08/22 22:16 96 Nasal Cannula 6.00 09/08/22 22:00 106 21 143/85 (104) 93 Nasal Cannula 6.00 09/08/22 21:00 106 16 126/86 (99) 91 NIV Bilevel 35.00 09/08/22 20:11 91 121/81 09/08/22 20:00 90 Nasal Cannula 5.00 09/08/22 20:00 115 23 122/67 (85) 93 NIV Bilevel 35.00 09/08/22 19:59 89 23 97 35.00 09/08/22 19:45 NIV Bilevel 35.00 09/08/22 19:00 96 21 132/67 (88) 91 Nasal Cannula 5.00 09/08/22 18:59 76 09/08/22 18:00 123 21 123/81 (95) 95 Nasal Cannula 5.00 09/08/22 17:00 126 18 124/84 (97) 93 Nasal Cannula 5.00 09/08/22 16:00 115 20 110/75 (87) 90 Nasal Cannula 5.00 09/08/22 16:00 99 Nasal Cannula 3.00 09/08/22 15:00 131 18 117/73 (88) 95 Nasal Cannula 5.00 09/08/22 14:15 105 19 121/85 (97) 95 Nasal Cannula 5.00 09/08/22 14:00 105 10 114/60 (78) 89 Nasal Cannula 3.00 09/08/22 13:39 129 143/90 09/08/22 13:36 95 09/08/22 13:01 129 09/08/22 13:00 129 29 143/90 (107) 94 Nasal Cannula 3.00 09/08/22 12:00 130 16 114/102 (106) 97 Nasal Cannula 3.00 09/08/22 12:00 99 Nasal Cannula 3.00 09/08/22 11:00 131 15 140/80 (100) 95 Nasal Cannula 3.00 09/08/22 10:56 Nasal Cannula 3.00 09/08/22 10:40 97 Nasal Cannula 5.00 09/08/22 10:34 125 117/78 I & O 09/09/22 07:00 Intake Total 1575 ml Output Total 1030 ml Balance 545 ml Height & Weight Height: 5'8.00" Weight: 185lbs. 0.0oz. 83.069979tu; 26.48 BMI Method:Stated General Appearance: No Apparent Distress HEENT: PERRL/EOMI Neck: Full Range of Motion Respiratory: Decreased Breath Sounds Cardiovascular: Regular Rate, Rhythm Capillary Refill: Less Than 3 Seconds Peripheral Pulses: 1+ Dorsalis Pedis (R), 1+ Left Dors-Pedis (L) (See free text.); 2+ Radial Pulses (R), 2+ Radial Pulses (L) Gastrointestinal: normal bowel sounds, non tender, soft Extremity: Normal Capillary Refill Neurologic/Psychiatric: Alert Skin: Normal Color Lymphatic: No Adenopathy Results Lab Laboratory Tests 09/08/22 04:15 09/09/22 02:55 Assessment/Plan Assessment/Plan 1 SAMUEL ALVAREZ MD Sep 09, 2022 10:32
[2022-09-09] MEDS: DIGOXIN 0.25 MG/ML (LANOXIN) 2 ML AMP IV SCH (10:35)
[2022-09-09] MEDS: ENOXAPARIN 100 MG/1 ML (LOVENOX) SYR SC SCH ×2 (11:11→23:23)
[2022-09-09] MEDS: RT-ALBUTEROL SULF 2.5 MG/3 ML PRE-MIX VIAL INH SCH ×2 (12:18→20:01)
--- NOTE | 2022-09-09 13:39 | Progress Note ---
Subjective Date Seen by a Provider: Sep 09, 2022 Time Seen by a Provider: 13:00 Subjective/Events-last exam significant abd distention requiring NGT. patient is having bowel movements. axt consistent with ileus. Objective Exam Vital Signs Date Time Temp Pulse Resp B/P (MAP) Pulse Ox O2 Delivery O2 Flow Rate FiO2 09/09/22 13:00 74 18 113/76 (88) 96 OxyMask 5.00 09/09/22 12:47 116 09/09/22 12:00 OxyMask 5.00 95 09/09/22 12:00 116 17 120/76 (91) 92 OxyMask 5.00 09/09/22 11:47 38.0 09/09/22 11:36 38.0 09/09/22 11:00 72 13 117/95 (102) 96 OxyMask 5.00 09/09/22 10:00 113 17 116/67 (83) 94 OxyMask 5.00 09/09/22 09:15 37.6 09/09/22 09:00 134 24 140/87 (104) 90 OxyMask 5.00 09/09/22 08:37 135 145/84 09/09/22 08:00 134 23 130/84 (99) 91 OxyMask 5.00 09/09/22 08:00 OxyMask 5.00 94 09/09/22 07:49 37.6 09/09/22 07:00 130 19 152/92 (112) 94 OxyMask 5.00 09/09/22 07:00 122 09/09/22 06:00 135 23 137/85 (102) 95 OxyMask 5.00 09/09/22 05:00 137 19 144/88 (106) 94 OxyMask 5.00 09/09/22 04:14 16 96 OxyMask 5.00 09/09/22 04:00 95 OxyMask 5.00 09/09/22 04:00 135 16 135/88 (104) 97 NIV Bilevel 50.00 09/09/22 03:00 135 20 129/91 (104) 96 NIV Bilevel 50.00 09/09/22 02:38 134 147/85 09/09/22 02:00 134 20 147/85 (105) 96 NIV Bilevel 50.00 09/09/22 01:00 110 09/09/22 01:00 89 18 135/85 (102) 94 NIV Bilevel 50.00 09/09/22 00:23 91 NIV Bilevel 50 09/09/22 00:15 NIV Bilevel 50.00 09/09/22 00:00 96 15 121/82 (95) 93 Nasal Cannula 6.00 09/08/22 23:36 113 22 90 50.00 09/08/22 23:00 134 16 117/92 (100) 91 Nasal Cannula 6.00 09/08/22 22:16 96 Nasal Cannula 6.00 09/08/22 22:00 106 21 143/85 (104) 93 Nasal Cannula 6.00 09/08/22 21:00 106 16 126/86 (99) 91 NIV Bilevel 35.00 09/08/22 20:11 91 121/81 09/08/22 20:00 90 Nasal Cannula 5.00 09/08/22 20:00 115 23 122/67 (85) 93 NIV Bilevel 35.00 09/08/22 19:59 89 23 97 35.00 09/08/22 19:45 NIV Bilevel 35.00 09/08/22 19:00 96 21 132/67 (88) 91 Nasal Cannula 5.00 09/08/22 18:59 76 09/08/22 18:00 123 21 123/81 (95) 95 Nasal Cannula 5.00 09/08/22 17:00 126 18 124/84 (97) 93 Nasal Cannula 5.00 09/08/22 16:00 115 20 110/75 (87) 90 Nasal Cannula 5.00 09/08/22 16:00 99 Nasal Cannula 3.00 09/08/22 15:00 131 18 117/73 (88) 95 Nasal Cannula 5.00 09/08/22 14:15 105 19 121/85 (97) 95 Nasal Cannula 5.00 09/08/22 14:00 105 10 114/60 (78) 89 Nasal Cannula 3.00 09/08/22 13:39 129 143/90 I & O 09/09/22 07:00 Intake Total 1575 ml Output Total 1030 ml Balance 545 ml Capillary Refill : Less Than 3 SecondsLess Than 3 Seconds General Appearance: No Apparent Distress HEENT: PERRL/EOMI Neck: Full Range of Motion Respiratory: Decreased Breath Sounds, Rhonci Cardiovascular: Regular Rate, Rhythm Gastrointestinal: soft, distended Extremity: Normal Capillary Refill Neurologic/Psychiatric: Alert, Oriented x3 Skin: Normal Color Lymphatic: No Adenopathy Results Lab Laboratory Tests 09/09/22 02:55: White Blood Count 11.2H, Red Blood Count 4.29L, Hemoglobin 13.1L, Hematocrit 40, Mean Corpuscular Volume 94, Mean Corpuscular Hemoglobin 31, Mean Corpuscular Hemoglobin Concent 33, Red Cell Distribution Width 14.4, Platelet Count 234, Mean Platelet Volume 10.9, Immature Granulocyte % (Auto) 1, Neutrophils (%) (Auto) 78H, Lymphocytes (%) (Auto) 6L, Monocytes (%) (Auto) 14H, Eosinophils (%) (Auto) 0, Basophils (%) (Auto) 0, Neutrophils # (Auto) 8.7H, Lymphocytes # (Auto) 0.7L, Monocytes # (Auto) 1.6H, Eosinophils # (Auto) 0.0, Basophils # (Auto) 0.0, Immature Granulocyte # (Auto) 0.1, Sodium Level 138, Potassium Level 3.4L, Chloride Level 102, Carbon Dioxide Level 24, Anion Gap 12, Blood Urea Nitrogen 35H, Creatinine 1.54H, Estimat Glomerular Filtration Rate 44, BUN/Creatinine Ratio 23, Glucose Level 147H, Calcium Level 8.7, Corrected Calcium 9.3, Magnesium Level 2.3, Total Bilirubin 1.2H, Aspartate Amino Transf (AST/SGOT) 51H, Alanine Aminotransferase (ALT/SGPT) 80H, Alkaline Phosphatase 105, Total Protein 6.3L, Albumin 3.2 Assessment/Plan Assessment/Plan Assess & Plan/Chief Complaint s/p laparoscopic cholecystectomy and umbilical hernia repair. diet as tolerated. ambulate. no heavy lifting exertion for 2 weeks. await HR control. ok to restart home OAC. developed ileus, now has NGT. will recommend continued bowel rest and decompression until more significant bowel movement and less abd distention. CONCHA OLIVER MD Sep 09, 2022 13:39
[2022-09-09 20:16] VITALS: BP 113/71
[2022-09-10] MEDS: meTOprolol 5 MG/5 ML (LOPRESSOR) VIAL IV SCH ×7 (02:44→20:04)
[2022-09-10] MEDS: RT-ALBUTEROL SULF 2.5 MG/3 ML PRE-MIX VIAL INH SCH ×4 (03:22→20:12)
[2022-09-10 04:51] LABS: BASOPHILS % (AUTO) 0 % (0-10); EOSINOPHILS % (AUTO) 0 % (0-10); HEMATOCRIT 37 % (40-54); HEMOGLOBIN 12.2 g/dL (13.3-17.7); LYMPHOCYTES # (AUTO) 0.9 10^3/uL (1.0-4.0); LYMPHOCYTES % (AUTO) 9 % (12-44); MEAN CORPUSCULAR HEMOGLOBIN 31 pg (25-34); MEAN CORPUSCULAR HGB CONC 33 g/dL (32-36); MEAN CORPUSCULAR VOLUME 95 fL (80-99); MEAN PLATELET VOLUME 10.6 fL (9.0-12.2); MONOCYTES # (AUTO) 1.2 10^3/uL (0.0-1.0); MONOCYTES % (AUTO) 12 % (0-12); NEUTROPHILS # (AUTO) 7.7 10^3/uL (1.8-7.8); NEUTROPHILS % (AUTO) 77 % (42-75); PLATELET COUNT 253 10^3/uL (130-400)
[2022-09-10] MEDS: HYDROmorphone 2 MG/ML VIAL (DILAUDID) IV PRN ×3 (05:13→15:51)
[2022-09-10 05:28] LABS: ALBUMIN 3.1 GM/DL (3.2-4.5); BILIRUBIN,TOTAL 0.7 MG/DL (0.1-1.0); CALCIUM 8.8 MG/DL (8.5-10.1); CREATININE SERUM 1.29 MG/DL (0.60-1.30); MAGNESIUM 2.5 MG/DL (1.6-2.4); POTASSIUM 3.7 MMOL/L (3.6-5.0); TOTAL PROTEIN 6.1 GM/DL (6.4-8.2)
--- NOTE | 2022-09-10 05:53 | Diagnostic Imaging Report ---
ABDOMEN/KUB 1VIEW INDICATION: Postoperative ileus. COMPARISON: 09/09/2022 TECHNIQUE: Supine AP view of the abdomen FINDINGS: Unchanged gaseous distention of the small bowel and colon. The greatest degree of distention of the ascending colon measuring up to 8 cm. The remaining curvilinear hyperdensities in the right lower quadrant that are in stable position since prior examination. Cholecystectomy clips are again noted. No features of free intraperitoneal air. IMPRESSION: 1. Stable position of 4 curvilinear hyperdensities in the right lower quadrant that could be surgical sponges. Alternatively, these could be extrinsic to the patient, and correlation with surgical history is advised. 2. No change in the gaseous distention of the colon that is compatible with patient's reported postoperative ileus. Dictated by: Dictated on workstation # [id number]
[2022-09-10] MEDS: POTASSIUM CL 10MEQ/50ML IVPB 50 ML IV SCH (06:18)
[2022-09-10] MEDS: MAGNESIUM 1 GM/100 ML IVPB 100 ML IV SCH (06:18)
[2022-09-10] MEDS: KCL 20 MEQ TAB (K-DUR) PO SCH (06:18)
[2022-09-10] MEDS: PIPERACILLIN SODIUM/TAZOBACTAM 4.5 GM in NS (IVPB) 100 ML IV SCH ×2 (06:19→14:45)
--- NOTE | 2022-09-10 07:11 | Progress Note - Surgery ---
Subjective Date Seen by a Provider: Sep 10, 2022 Time Seen by a Provider: 07:06 Subjective/Events-last exam Pt states that he feeling slightly better. Pt was layng in bed during interview and was hard for him to speak. Pt currently on 3L oxygen via oxy mask. Breathing is better than before. States pain is 4-5/10 in the lower abdomen where at incision site. Pt reports hasn't had a dressing change in several days. Pt received confirmation abdominal x-ray this morning that showed distended bowels. Review of Systems General: No Chills, No Night Sweats HEENT: No Head Aches, No Visual Changes, No Eye Pain Pulmonary: No Dyspnea, No Cough Cardiovascular: No: Chest Pain, Palpitations, Edema Gastrointestinal: Abdominal Pain; No: Nausea, Vomiting, Diarrhea Genitourinary: No Dysuria, No Frequency Neurological: No: Weakness, Numbness Objective Exam Vital Signs Date Time Temp Pulse Resp B/P (MAP) Pulse Ox O2 Delivery O2 Flow Rate FiO2 09/10/22 06:00 117 18 116/83 (94) 96 OxyMask 3.00 09/10/22 05:00 116 21 129/73 (91) 97 OxyMask 3.00 09/10/22 04:00 OxyMask 3.00 95 09/10/22 04:00 115 18 129/77 (94) 96 OxyMask 3.00 09/10/22 03:22 97 OxyMask 3.00 09/10/22 03:00 113 19 118/79 (92) 97 OxyMask 3.00 09/10/22 02:00 115 16 119/76 (90) 97 OxyMask 3.00 09/10/22 01:00 114 09/10/22 01:00 112 16 114/75 (88) 96 OxyMask 3.00 09/10/22 00:00 37.0 09/10/22 00:00 106 16 113/84 (94) 96 OxyMask 3.00 09/09/22 23:59 OxyMask 3.00 95 09/09/22 23:23 82 119/75 09/09/22 23:00 114 15 123/86 (98) 96 OxyMask 3.00 09/09/22 22:00 114 17 120/80 (93) 97 OxyMask 3.00 09/09/22 21:00 82 15 119/75 (90) 96 OxyMask 3.00 09/09/22 20:16 107 95 09/09/22 20:02 96 OxyMask 3.00 09/09/22 20:00 OxyMask 3.00 95 09/09/22 20:00 37.4 09/09/22 20:00 87 18 122/84 (97) 97 OxyMask 3.00 09/09/22 19:00 96 09/09/22 19:00 89 18 121/62 (81) 95 OxyMask 3.00 09/09/22 18:00 106 17 119/75 (90) 97 OxyMask 5.00 09/09/22 17:00 101 19 124/83 (97) 97 OxyMask 5.00 09/09/22 16:00 84 15 115/78 (90) 97 OxyMask 5.00 09/09/22 16:00 OxyMask 5.00 95 09/09/22 15:59 116 125/76 09/09/22 15:52 37.3 09/09/22 15:46 118 143/90 09/09/22 15:00 116 18 136/81 (99) 97 OxyMask 5.00 09/09/22 14:00 114 22 133/80 (97) 97 OxyMask 5.00 09/09/22 13:00 74 18 113/76 (88) 96 OxyMask 5.00 09/09/22 12:47 116 09/09/22 12:00 OxyMask 5.00 95 09/09/22 12:00 116 17 120/76 (91) 92 OxyMask 5.00 09/09/22 11:47 38.0 09/09/22 11:36 38.0 09/09/22 11:00 72 13 117/95 (102) 96 OxyMask 5.00 09/09/22 10:00 113 17 116/67 (83) 94 OxyMask 5.00 09/09/22 09:15 37.6 09/09/22 09:00 134 24 140/87 (104) 90 OxyMask 5.00 09/09/22 08:37 135 145/84 09/09/22 08:00 134 23 130/84 (99) 91 OxyMask 5.00 09/09/22 08:00 OxyMask 5.00 94 09/09/22 07:49 37.6 I & O 09/10/22 07:00 Intake Total 150 ml Output Total 2900 ml Balance -2750 ml Capillary Refill : Less Than 3 SecondsLess Than 3 Seconds General Appearance: No Apparent Distress HEENT: PERRL/EOMI Neck: Full Range of Motion Respiratory: Decreased Breath Sounds, Rhonci Cardiovascular: Regular Rate, Rhythm Peripheral Pulses: 1+ Dorsalis Pedis (R), 1+ Left Dors-Pedis (L) (See free text.); 2+ Radial Pulses (R), 2+ Radial Pulses (L) Gastrointestinal: soft Extremity: Normal Capillary Refill Neurologic/Psychiatric: Alert, Oriented x3 Skin: Normal Color Lymphatic: No Adenopathy Results Lab Laboratory Tests 09/10/22 04:07: White Blood Count 10.0, Red Blood Count 3.95L, Hemoglobin 12.2L, Hematocrit 37L, Mean Corpuscular Volume 95, Mean Corpuscular Hemoglobin 31, Mean Corpuscular Hemoglobin Concent 33, Red Cell Distribution Width 14.6H, Platelet Count 253, Mean Platelet Volume 10.6, Immature Granulocyte % (Auto) 2, Neutrophils (%) (Auto) 77H, Lymphocytes (%) (Auto) 9L, Monocytes (%) (Auto) 12, Eosinophils (%) (Auto) 0, Basophils (%) (Auto) 0, Neutrophils # (Auto) 7.7, Lymphocytes # (Auto) 0.9L, Monocytes # (Auto) 1.2H, Eosinophils # (Auto) 0.0, Basophils # (Auto) 0.0, Immature Granulocyte # (Auto) 0.2H, Sodium Level 141, Potassium Level 3.7, Chloride Level 106, Carbon Dioxide Level 22, Anion Gap 13, Blood Urea Nitrogen 37H, Creatinine 1.29, Estimat Glomerular Filtration Rate 54, BUN/Creatinine Ratio 29, Glucose Level 126H, Calcium Level 8.8, Corrected Calcium 9.5, Magnesium Level 2.5H, Total Bilirubin 0.7, Aspartate Amino Transf (AST/SGOT) 33, Alanine Aminotransferase (ALT/SGPT) 57H, Alkaline Phosphatase 90, Total Protein 6.1L, Albumin 3.1L, Digoxin Level 0.70L Assessment/Plan Assessment/Plan Assessment/Plan Assessment: Acute cholecystitischolecystectomy postop day #3 Postop ileus on 09/09/2022; repeat Abdominal X-ray showed similar distension of colon. A. fib with RVR maintained on diltiazem drip History of chronic atrial fibrillation CHF Hypertension CAD Status post cardiac arrest at home March 2022 Plan: Monitor Hemoglobin Consider Encourage Ambulation and use of ICS Supportive care N.p.LINETTE Singh Sep 10, 2022 07:11
[2022-09-10] MEDS: DOCUSATE SODIUM 100 MG (COLACE) CAP PO SCH ×2 (08:09→19:56)
[2022-09-10] MEDS: CLOPIDOGREL 75 MG (PLAVIX) TABLET PO SCH (08:09)
[2022-09-10] MEDS: SENNOSIDES 8.6 MG (SENOKOT) TAB PO SCH ×2 (08:09→19:56)
[2022-09-10] MEDS: DIGOXIN 0.25 MG/ML (LANOXIN) 2 ML AMP IV SCH (08:09)
--- NOTE | 2022-09-10 08:28 | Cardiology Progress Note ---
Subjective Date Seen by Provider: Sep 10, 2022 Time Seen by Provider: 08:27 Subjective/Events-last exam Patient is laying down in bed, still having distended abdomen, on oxygen mask Review of Systems General: No Chills, No Night Sweats, No Fatigue, No Malaise, No Appetite, No Other HEENT: No Head Aches, No Visual Changes, No Eye Pain, No Ear Pain, No Dysphasia, No Sinus Congestion, No Post Nasal Drip, No Sore Throat, No Other Pulmonary: Dyspnea; No Cough, No Pleuritic Chest Pain, No Other Cardiovascular: No: Chest Pain, Palpitations, Orthopnea, Paroxysmal Noc. Dyspnea, Edema, Lt Headedness, Other Objective-Cardiology Exam Last Set of Vital Signs Vital Signs 09/10/22 09/10/22 09/10/22 04:00 07:30 08:00 Temp 37.3 Pulse 117 Resp 17 B/P (MAP) 129/84 (99) Pulse Ox 95 O2 Delivery OxyMask O2 Flow Rate 3.00 FiO2 95 I&O Intake and Output 09/10/22 00:00 Intake Total 600 ml Output Total 2305 ml Balance -1705 ml Intake Oral 450 ml IV Total 150 ml Output Urine Total 905 ml Gastric Drainage Total 1400 ml General: Alert, Oriented X3, Cooperative, No Acute Distress HEENT: Atraumatic, PERRLA Neck: Supple, No JVD, No Thyromegaly Lungs: Normal Air Movement, Other (Bilateral wheezing and rhonchi) Heart: Regular Rate, Normal S1, Normal S2, No Murmurs Abdomen: Other (Distended abdomen with diminished bowel sounds) Extremities: No Clubbing, No Cyanosis, No Edema, Normal Pulses, No Tenderne ss/Swelling Skin: No Breakdown, No Significant Lesion Neuro: Normal Speech, Strength at 5/5 X4 Ext, Normal Tone Psych/Mental Status: Mental Status NL, Mood NL Results Lab Laboratory Tests 09/10/22 04:07 A/P-Cardiology Admission Diagnosis Acute cholecystitis Coronary artery disease Permanent atrial fibrillation Hypertension Assessment/Plan Status post acute respiratory failure postoperatively on September 07, 2022 required BiPAP. B Currently on oxygen mask. Acute cholecystitis, status postcholecystectomy done on September 07, 2022. Postop ileus. Still having distended abdomen with diminished bowel sounds, has NG tube with continuous suction Atrial fibrillation/atrial flutter, currently tachycardic. History of permanent atrial fibrillation. Cannot tolerate oral medication due to postoperative ileus. I will continue with Cardizem drip, Lopressor IV and Lovenox Eliquis is on hold Continue to monitor heart rate and blood pressure Status post acute congestive heart failure with fluid overload postoperatively, history of congestive heart failure with chronic compensated left ventricular diastolic dysfunction 2D echo was done in March 2022 with normal left ventricular systolic function ejection fraction 60 to 65% with dilated left atrium and pulmonary hypertension with PA pressure 40 to 45 mmHg Coronary artery disease, history of non-ST elevation myocardial infarction in March 2022 - Cardiac cath of 07-14-18: 90% [id number] vessel stenosis of the left anterior descending artery within a small caliber vessel to which balloon angioplasty was carried out which reduced the stenosis to less than 50%. The rest of the coronary vessels have moderate diffuse disease. There is a patent stent in the right coronary with a 50% in-stent restenosis (unchanged compared to previous study). Elevated left ventricular end-diastolic pressure. - MPI of 12/07/19: no ischemia or infarction, LVEF 48% (appeared to be higher, subjectively) - Card cath on 03/25/22: 90-85 prox and mid LAD stenosis treated with PTCA and then 2.25 x 23 mm GABRIELA, distal LAD, distal LCX, and prox RI have severe disease that is not amenable to intervention, RCA is dominant with patent prox stent with up to 50 instent and distal RCA with up to 50 stenoses, LVEDP 22 mmHg Has been maintained on aspirin and Plavix last taken on September 05, 2022. History of syncope and collapse reported pulseless per family on March 24, 2022. Had chest compression Loop monitor implanted on March 26, 2022. History of rib fractures after chest compression Hypertension, continue to monitor blood pressure Hyperlipidemia, maintained on statin. Currently on hold History of umbilical hernia. Questionable underlying sleep apnea Lumbar spondylosis and spinal stenosis, followed by IAN Fontaine MD Sep 10, 2022 08:28
--- NOTE | 2022-09-10 09:42 | Tele-ICU Progress Note ---
Subjective Date Seen by a Provider: Sep 10, 2022 Time Seen by a Provider: 09:40 Subjective/Events-last exam (Tele-ICU Physician , Progress Note ) Service provided via interactive audio and video telecommunications E-CARE system to a patient admitted to ICU bed in [facility]. Available chart/ vitals / labs / Images reviewed Video assessment done using teleICU camera, rest of exam as per RN Discussed with RN Events overnight : Afebrile hemodynamically stable Respiratory - 3l I/O = pos 1800 Drips: cardizem Pressors- no Consultants: sx Hospital course: (09/05) Admitted an 87y/o with acute cholecystits. On Plavix and Eliquis and will wait 48 hours for OR. 09/07-s/p laparoscopic cholecystectomy , laparoscopic umbilical hernia repair extubated in PACU , In ICU on BIPAP 80% , 15/8 rr 23 550 MV 12 L 09/08 - 5L NC , cardizem gtt 20 , digx1 , 1 L NS given 09/09- cardizem gtt 20 , NG placed , large gastric output , started on LOVENOX full dose Patient is seen today due to persistent resp insufficency , ICU care A/P Acute cholecystitis -s/p laparoscopic cholecystectomy , laparoscopic umbilical hernia repair 09/07 - Zosyn to cont -pain controled with dilaudid - NG placed 09/09 -, large gastric output - improving Acute resp failure post op - on 3L o2 today h/o PAF - on eliquis [employer]ST- ON HOLD NOW < ON FULL DOSE LOVENOX x1 09/06 -on cardizem gtt 5 as per cards - beta blockers IV - AC with lovenox full dose 09/09 -Echo 03/2022 - EF 50% JESICA - mild slow improbing Ileus 09/09 - as per sx , NG in place CAD. - as per cardiology Pulm HTN - RVSP 50 03/2023 - monitor fluid status carefuly Nutrition - NPO 09/09 Right tight tenderness - as per sx eval , not cellululitis as per description Lines : periph , (Central Line Necessity Reviewed) Hassan: 09/07 OG: Nutrition: back to NPO 09/09 Analgesia: Anxiety/ delirium VTE Prophylaxis: lovenox full dose 09/09 , SCD Stress Ulcer Prophylaxis: Plans in collaboration with bedside consultants and IM MDs. Discussed with RN to reach out if any questions or concerns A total of 22 minutes of critical care time was devoted to this patient today, required to treat and/or prevent further deterioration of critical care condition ( as above ) I am remotely monitoring this patient from another state. I am unable to do the bedside exam, and history/physical and pertinent information is taken from other notes in the computer and bedside staff. Sepsis Event Evaluation Height, Weight, BMI Height: 5'8.00" Weight: 185lbs. 0.0oz. 83.939856dl; 26.48 BMI Method:Stated Exam Exam Patient acknowledged, consented, and participated in this virtual visit which was conducted using real time audio/video Vital Signs Date Time Temp Pulse Resp B/P (MAP) Pulse Ox O2 Delivery O2 Flow Rate FiO2 09/10/22 09:00 117 15 137/88 (104) 94 OxyMask 3.00 09/10/22 08:00 117 17 129/84 (99) 95 OxyMask 3.00 09/10/22 07:30 37.3 09/10/22 07:23 96 OxyMask 2.00 09/10/22 07:00 115 16 131/77 (95) 96 OxyMask 3.00 09/10/22 06:45 110 09/10/22 06:00 117 18 116/83 (94) 96 OxyMask 3.00 09/10/22 05:00 116 21 129/73 (91) 97 OxyMask 3.00 09/10/22 04:00 OxyMask 3.00 95 09/10/22 04:00 115 18 129/77 (94) 96 OxyMask 3.00 09/10/22 03:22 97 OxyMask 3.00 09/10/22 03:00 113 19 118/79 (92) 97 OxyMask 3.00 09/10/22 02:00 115 16 119/76 (90) 97 OxyMask 3.00 09/10/22 01:00 114 09/10/22 01:00 112 16 114/75 (88) 96 OxyMask 3.00 09/10/22 00:00 37.0 09/10/22 00:00 106 16 113/84 (94) 96 OxyMask 3.00 09/09/22 23:59 OxyMask 3.00 95 09/09/22 23:23 82 119/75 09/09/22 23:00 114 15 123/86 (98) 96 OxyMask 3.00 09/09/22 22:00 114 17 120/80 (93) 97 OxyMask 3.00 09/09/22 21:00 82 15 119/75 (90) 96 OxyMask 3.00 09/09/22 20:16 107 95 09/09/22 20:02 96 OxyMask 3.00 09/09/22 20:00 OxyMask 3.00 95 09/09/22 20:00 37.4 09/09/22 20:00 87 18 122/84 (97) 97 OxyMask 3.00 09/09/22 19:00 96 09/09/22 19:00 89 18 121/62 (81) 95 OxyMask 3.00 09/09/22 18:00 106 17 119/75 (90) 97 OxyMask 5.00 09/09/22 17:00 101 19 124/83 (97) 97 OxyMask 5.00 09/09/22 16:00 84 15 115/78 (90) 97 OxyMask 5.00 09/09/22 16:00 OxyMask 5.00 95 09/09/22 15:59 116 125/76 09/09/22 15:52 37.3 09/09/22 15:46 118 143/90 09/09/22 15:00 116 18 136/81 (99) 97 OxyMask 5.00 09/09/22 14:00 114 22 133/80 (97) 97 OxyMask 5.00 09/09/22 13:00 74 18 113/76 (88) 96 OxyMask 5.00 09/09/22 12:47 116 09/09/22 12:00 OxyMask 5.00 95 09/09/22 12:00 116 17 120/76 (91) 92 OxyMask 5.00 09/09/22 11:47 38.0 09/09/22 11:36 38.0 09/09/22 11:00 72 13 117/95 (102) 96 OxyMask 5.00 09/09/22 10:00 113 17 116/67 (83) 94 OxyMask 5.00 I & O 09/10/22 07:00 Intake Total 150 ml Output Total 2900 ml Balance -2750 ml Height & Weight Height: 5'8.00" Weight: 185lbs. 0.0oz. 83.896165mv; 26.48 BMI Method:Stated General Appearance: No Apparent Distress HEENT: PERRL/EOMI Neck: Full Range of Motion Respiratory: Decreased Breath Sounds, Rhonci Cardiovascular: Regular Rate, Rhythm Capillary Refill: Less Than 3 Seconds Peripheral Pulses: 1+ Dorsalis Pedis (R), 1+ Left Dors-Pedis (L) (See free text.); 2+ Radial Pulses (R), 2+ Radial Pulses (L) Gastrointestinal: soft Extremity: Normal Capillary Refill Neurologic/Psychiatric: Alert, Oriented x3 Skin: Normal Color Lymphatic: No Adenopathy Results Lab Laboratory Tests 09/09/22 02:55 09/10/22 04:07 Assessment/Plan Assessment/Plan 1 SAMUEL ALVAREZ MD Sep 10, 2022 09:42
--- NOTE | 2022-09-10 09:50 | Tele-ICU Progress Note ---
Subjective Date Seen by a Provider: Sep 10, 2022 Time Seen by a Provider: 09:49 Subjective/Events-last exam (Tele-ICU Physician , Progress Note ) Service provided via interactive audio and video telecommunications E-CARE system to a patient admitted to ICU bed in [facility] Available chart/ vitals / labs / Images reviewed Video assessment done using teleICU camera, rest of exam as per RN Discussed with RN Events overnight : Afebrile hemodynamically stable Respiratory - 3l I/O = pos 1800 Drips: cardizem Pressors- no Consultants: sx Hospital course: (09/05) Admitted an 87y/o with acute cholecystits. On Plavix and Eliquis and will wait 48 hours for OR. 09/07-s/p laparoscopic cholecystectomy , laparoscopic umbilical hernia repair extubated in PACU , In ICU on BIPAP 80% , 15/8 rr 23 550 MV 12 L 09/08 - 5L NC , cardizem gtt 20 , digx1 , 1 L NS given 09/09- cardizem gtt 20 , NG placed , large gastric output , started on LOVENOX full dose Patient is seen today due to persistent resp insufficency , ICU care A/P Acute cholecystitis -s/p laparoscopic cholecystectomy , laparoscopic umbilical hernia repair 09/07 - Zosyn to cont -pain controled with dilaudid - NG placed 09/09 -, large gastric output - improving Acute resp failure post op - on 3L o2 today h/o PAF - on eliquis [employer]I [employer]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 - as per cardiology Pulm HTN - RVSP 50 03/2023 - monitor fluid status carefuly Nutrition - NPO 09/09 Right tight tenderness - as per sx eval , not cellululitis as per description Lines : periph , (Central Line Necessity Reviewed) Hassan: 09/07 OG: Nutrition: back to NPO 09/09 Analgesia: Anxiety/ delirium VTE Prophylaxis: lovenox full dose 09/09 , SCD Stress Ulcer Prophylaxis: Plans in collaboration with bedside consultants and IM MDs. Discussed with RN to reach out if any questions or concerns A total of 22 minutes of critical care time was devoted to this patient today, required to treat and/or prevent further deterioration of critical care condition ( as above ) I am remotely monitoring this patient from another state. I am unable to do the bedside exam, and history/physical and pertinent information is taken from other notes in the computer and bedside staff. Sepsis Event Evaluation Height, Weight, BMI Height: 5'8.00" Weight: 185lbs. 0.0oz. 83.305235dm; 26.48 BMI Method:Stated Exam Exam Patient acknowledged, consented, and participated in this virtual visit which was conducted using real time audio/video Vital Signs Date Time Temp Pulse Resp B/P (MAP) Pulse Ox O2 Delivery O2 Flow Rate FiO2 09/10/22 09:00 117 15 137/88 (104) 94 OxyMask 3.00 09/10/22 08:00 117 17 129/84 (99) 95 OxyMask 3.00 09/10/22 07:30 37.3 09/10/22 07:23 96 OxyMask 2.00 09/10/22 07:00 115 16 131/77 (95) 96 OxyMask 3.00 09/10/22 06:45 110 09/10/22 06:00 117 18 116/83 (94) 96 OxyMask 3.00 09/10/22 05:00 116 21 129/73 (91) 97 OxyMask 3.00 09/10/22 04:00 OxyMask 3.00 95 09/10/22 04:00 115 18 129/77 (94) 96 OxyMask 3.00 09/10/22 03:22 97 OxyMask 3.00 09/10/22 03:00 113 19 118/79 (92) 97 OxyMask 3.00 09/10/22 02:00 115 16 119/76 (90) 97 OxyMask 3.00 09/10/22 01:00 114 09/10/22 01:00 112 16 114/75 (88) 96 OxyMask 3.00 09/10/22 00:00 37.0 09/10/22 00:00 106 16 113/84 (94) 96 OxyMask 3.00 09/09/22 23:59 OxyMask 3.00 95 09/09/22 23:23 82 119/75 09/09/22 23:00 114 15 123/86 (98) 96 OxyMask 3.00 09/09/22 22:00 114 17 120/80 (93) 97 OxyMask 3.00 09/09/22 21:00 82 15 119/75 (90) 96 OxyMask 3.00 09/09/22 20:16 107 95 09/09/22 20:02 96 OxyMask 3.00 09/09/22 20:00 OxyMask 3.00 95 09/09/22 20:00 37.4 09/09/22 20:00 87 18 122/84 (97) 97 OxyMask 3.00 09/09/22 19:00 96 09/09/22 19:00 89 18 121/62 (81) 95 OxyMask 3.00 09/09/22 18:00 106 17 119/75 (90) 97 OxyMask 5.00 09/09/22 17:00 101 19 124/83 (97) 97 OxyMask 5.00 09/09/22 16:00 84 15 115/78 (90) 97 OxyMask 5.00 09/09/22 16:00 OxyMask 5.00 95 09/09/22 15:59 116 125/76 09/09/22 15:52 37.3 09/09/22 15:46 118 143/90 09/09/22 15:00 116 18 136/81 (99) 97 OxyMask 5.00 09/09/22 14:00 114 22 133/80 (97) 97 OxyMask 5.00 09/09/22 13:00 74 18 113/76 (88) 96 OxyMask 5.00 09/09/22 12:47 116 09/09/22 12:00 OxyMask 5.00 95 09/09/22 12:00 116 17 120/76 (91) 92 OxyMask 5.00 09/09/22 11:47 38.0 09/09/22 11:36 38.0 09/09/22 11:00 72 13 117/95 (102) 96 OxyMask 5.00 09/09/22 10:00 113 17 116/67 (83) 94 OxyMask 5.00 I & O 09/10/22 07:00 Intake Total 150 ml Output Total 2900 ml Balance -2750 ml Height & Weight Height: 5'8.00" Weight: 185lbs. 0.0oz. 83.830577cm; 26.48 BMI Method:Stated General Appearance: No Apparent Distress HEENT: PERRL/EOMI Neck: Full Range of Motion Respiratory: Decreased Breath Sounds, Rhonci Cardiovascular: Regular Rate, Rhythm Capillary Refill: Less Than 3 Seconds Peripheral Pulses: 1+ Dorsalis Pedis (R), 1+ Left Dors-Pedis (L) (See free text.); 2+ Radial Pulses (R), 2+ Radial Pulses (L) Gastrointestinal: soft Extremity: Normal Capillary Refill Neurologic/Psychiatric: Alert, Oriented x3 Skin: Normal Color Lymphatic: No Adenopathy Results Lab Laboratory Tests 09/09/22 02:55 09/10/22 04:07 Assessment/Plan Assessment/Plan 1 SAMUEL ALVAREZ MD Sep 10, 2022 09:50
--- NOTE | 2022-09-10 10:06 | Progress Note ---
[facility] 09/10/22 1006: Subjective Date Seen by a Provider: Sep 10, 2022 Time Seen by a Provider: 09:30 Subjective/Events-last exam Minh is a 87y WM s/p cholecystectomy and hernia repair with post op ileus, also with afib. Today pt is sitting up in chair and reports feeling overall better. Denies CP, SOB, nausea, vomiting. NGT is in place and draining brown liquid, 400cc overnight. Hassan drained 250cc overnight. Denies passing flatus or BM. He does have a slight cough he attributes to the NGT. His abdominal x-ray was stable appearing with no change in gaseous distension or RLQ appearance. He remains tachycardic. Review of Systems Pulmonary: No Dyspnea; Cough Cardiovascular: No: Chest Pain, Palpitations Gastrointestinal: Abdominal Pain (incisional); No: Nausea, Vomiting Objective Exam Last Set of Vital Signs Vital Signs Date Time Temp Pulse Resp B/P (MAP) Pulse Ox O2 Delivery O2 Flow Rate FiO2 09/10/22 09:00 117 15 137/88 (104) 94 OxyMask 3.00 09/10/22 07:30 37.3 09/10/22 04:00 95 Capillary Refill : Less Than 3 SecondsLess Than 3 Seconds I&O Intake and Output 09/10/22 00:00 Intake Total 600 ml Output Total 2305 ml Balance -1705 ml Intake Oral 450 ml IV Total 150 ml Output Urine Total 905 ml Gastric Drainage Total 1400 ml General: Alert, Oriented X3, Cooperative, No Acute Distress HEENT: Atraumatic, PERRLA, EOMI, Mucous Memb Moist/[place] Neck: Supple, No JVD Lungs: Other (coarse lung sounds b/l) Heart: Regular Rate, Normal S1, Normal S2, Other (tachycardic) Abdomen: Other (distended with absent bowel sounds, incisions clean/dry/intact) Extremities: Normal Pulses Psych/Mental Status: Mental Status NL, Mood NL Results Lab Laboratory Tests 09/10/22 04:07: White Blood Count 10.0, Red Blood Count 3.95L, Hemoglobin 12.2L, Hematocrit 37L, Mean Corpuscular Volume 95, Mean Corpuscular Hemoglobin 31, Mean Corpuscular Hemoglobin Concent 33, Red Cell Distribution Width 14.6H, Platelet Count 253, Mean Platelet Volume 10.6, Immature Granulocyte % (Auto) 2, Neutrophils (%) (Auto) 77H, Lymphocytes (%) (Auto) 9L, Monocytes (%) (Auto) 12, Eosinophils (%) (Auto) 0, Basophils (%) (Auto) 0, Neutrophils # (Auto) 7.7, Lymphocytes # (Auto) 0.9L, Monocytes # (Auto) 1.2H, Eosinophils # (Auto) 0.0, Basophils # (Auto) 0.0, Immature Granulocyte # (Auto) 0.2H, Sodium Level 141, Potassium Level 3.7, Chloride Level 106, Carbon Dioxide Level 22, Anion Gap 13, Blood Urea Nitrogen 37H, Creatinine 1.29, Estimat Glomerular Filtration Rate 54, BUN/Creatinine Ratio 29, Glucose Level 126H, Calcium Level 8.8, Corrected Calcium 9.5, Magnesi um Level 2.5H, Total Bilirubin 0.7, Aspartate Amino Transf (AST/SGOT) 33, Alanine Aminotransferase (ALT/SGPT) 57H, Alkaline Phosphatase 90, Total Protein 6.1L, Albumin 3.1L, Digoxin Level 0.70L Assessment/Plan Assessment/Plan Assess & Plan/Chief Complaint Assessment: Acute cholecystitischolecystectomy postop day #3 Postop ileus on 09/09/2022 A. fib with RVR maintained on diltiazem drip History of chronic atrial fibrillation CHF Hypertension CAD Status post cardiac arrest at home March 2022 Plan: Diltiazem drip Digoxin ICU Cardiology Supportive care N.p.o. NG tube KAREN JJ DO 09/11/22 0502: Subjective Subjective/Events-last exam NG tube in place Cardizem drip to maintain Supervisory-Addendum Brief Verification & Attestation Participated in pt care: history, MDM, physical Personally performed: exam, history, MDM, supervision of care Care discussed with: Medical Student Procedures: n/a Results interpretation: Verified all documentation Verification and Attestation of Medical Student E/M Service A medical student performed and documented this service in my presence. I reviewed and verified all information documented by the medical student and made modifications to such information, when appropriate. I personally performed the physical exam and medical decision making. Karen Jj Sep 11, 2022,05:02 ADAN APPIAH Sep 10, 2022 10:06 KAREN JJ DO Sep 11, 2022 05:02
[2022-09-10] MEDS: ENOXAPARIN 100 MG/1 ML (LOVENOX) SYR SC SCH ×2 (11:15→22:24)
--- NOTE | 2022-09-10 11:25 | Progress Note - Surgery ---
Subjective Time Seen by a Provider: 10:54 Subjective/Events-last exam Pt seen and examined, stated he is starting to get some lower abdominal pain and just called for a pain shot. He still has NGT in place, has had some flatus but no BM. He is asking about food. He is sitting up in chair. Nurse thinks there has been appx 50ml out since beginning of shift; 1000ml immediately after it was placed and then another 500ml over night. He does think his belly is a little more distended. Review of Systems General: No Chills, No Night Sweats HEENT: Other (NGT in place) Pulmonary: No Dyspnea, No Cough Cardiovascular: No: Chest Pain, Palpitations Gastrointestinal: Nausea, Abdominal Pain; No: Vomiting Objective Exam Vital Signs Date Time Temp Pulse Resp B/P (MAP) Pulse Ox O2 Delivery O2 Flow Rate FiO2 09/10/22 10:00 118 25 123/76 (92) 94 OxyMask 3.00 09/10/22 09:00 117 15 137/88 (104) 94 OxyMask 3.00 09/10/22 08:00 117 17 129/84 (99) 95 OxyMask 3.00 09/10/22 08:00 OxyMask 3.00 94 09/10/22 07:30 37.3 09/10/22 07:23 96 OxyMask 2.00 09/10/22 07:00 115 16 131/77 (95) 96 OxyMask 3.00 09/10/22 06:45 110 09/10/22 06:00 117 18 116/83 (94) 96 OxyMask 3.00 09/10/22 05:00 116 21 129/73 (91) 97 OxyMask 3.00 09/10/22 04:00 OxyMask 3.00 95 09/10/22 04:00 115 18 129/77 (94) 96 OxyMask 3.00 09/10/22 03:22 97 OxyMask 3.00 09/10/22 03:00 113 19 118/79 (92) 97 OxyMask 3.00 09/10/22 02:00 115 16 119/76 (90) 97 OxyMask 3.00 09/10/22 01:00 114 09/10/22 01:00 112 16 114/75 (88) 96 OxyMask 3.00 09/10/22 00:00 37.0 09/10/22 00:00 106 16 113/84 (94) 96 OxyMask 3.00 09/09/22 23:59 OxyMask 3.00 95 09/09/22 23:23 82 119/75 09/09/22 23:00 114 15 123/86 (98) 96 OxyMask 3.00 09/09/22 22:00 114 17 120/80 (93) 97 OxyMask 3.00 09/09/22 21:00 82 15 119/75 (90) 96 OxyMask 3.00 09/09/22 20:16 107 95 09/09/22 20:02 96 OxyMask 3.00 09/09/22 20:00 OxyMask 3.00 95 09/09/22 20:00 37.4 09/09/22 20:00 87 18 122/84 (97) 97 OxyMask 3.00 09/09/22 19:00 96 09/09/22 19:00 89 18 121/62 (81) 95 OxyMask 3.00 09/09/22 18:00 106 17 119/75 (90) 97 OxyMask 5.00 09/09/22 17:00 101 19 124/83 (97) 97 OxyMask 5.00 09/09/22 16:00 84 15 115/78 (90) 97 OxyMask 5.00 09/09/22 16:00 OxyMask 5.00 95 09/09/22 15:59 116 125/76 09/09/22 15:52 37.3 09/09/22 15:46 118 143/90 09/09/22 15:00 116 18 136/81 (99) 97 OxyMask 5.00 09/09/22 14:00 114 22 133/80 (97) 97 OxyMask 5.00 09/09/22 13:00 74 18 113/76 (88) 96 OxyMask 5.00 09/09/22 12:47 116 09/09/22 12:00 OxyMask 5.00 95 09/09/22 12:00 116 17 120/76 (91) 92 OxyMask 5.00 09/09/22 11:47 38.0 09/09/22 11:36 38.0 I & O 09/10/22 07:00 Intake Total 150 ml Output Total 2900 ml Balance -2750 ml Capillary Refill : Less Than 3 SecondsLess Than 3 Seconds General Appearance: No Apparent Distress, Obese HEENT: PERRL/EOMI Respiratory: No Accessory Muscle Use, No Respiratory Distress, Decreased Breath Sounds, Rhonci Cardiovascular: No Murmur, Tachycardia Peripheral Pulses: 1+ Dorsalis Pedis (R), 1+ Left Dors-Pedis (L) (See free text.); 2+ Radial Pulses (R), 2+ Radial Pulses (L) Gastrointestinal: soft, distended, tenderness (diffusely, but more at incisions) Extremity: Normal Capillary Refill Neurologic/Psychiatric: Alert, Oriented x3 Skin: Normal Color Results Lab Laboratory Tests 09/10/22 04:07: White Blood Count 10.0, Red Blood Count 3.95L, Hemoglobin 12.2L, Hematocrit 37L, Mean Corpuscular Volume 95, Mean Corpuscular Hemoglobin 31, Mean Corpuscular Hemoglobin Concent 33, Red Cell Distribution Width 14.6H, Platelet Count 253, Mean Platelet Volume 10.6, Immature Granulocyte % (Auto) 2, Neutrophils (%) (Auto) 77H, Lymphocytes (%) (Auto) 9L, Monocytes (%) (Auto) 12, Eosinophils (%) (Auto) 0, Basophils (%) (Auto) 0, Neutrophils # (Auto) 7.7, Lymphocytes # (Auto) 0.9L, Monocytes # (Auto) 1.2H, Eosinophils # (Auto) 0.0, Basophils # (Auto) 0.0, Immature Granulocyte # (Auto) 0.2H, Sodium Level 141, Potassium Level 3.7, Chloride Level 106, Carbon Dioxide Level 22, Anion Gap 13, Blood Urea Nitrogen 37H, Creatinine 1.29, Estimat Glomerular Filtration Rate 54, BUN/Creatinine Ratio 29, Glucose Level 126H, Calcium Level 8.8, Corrected Calcium 9.5, Magnesium Level 2.5H, Total Bilirubin 0.7, Aspartate Amino Transf (AST/SGOT) 33, Alanine Aminotransferase (ALT/SGPT) 57H, Alkaline Phosphatase 90, Total Protein 6.1L, Albumin 3.1L, Digoxin Level 0.70L Assessment/Plan Assessment/Plan Assessment/Plan Assessment: Anemia - probably dilutional and minimal post-opt Acute cholecystitischolecystectomy postop day #3 Postop ileus with NGT placement A. fib with RVR maintained on diltiazem drip CHF, Hypertension, CAD - Status post cardiac arrest at home March 2022 Plan: Pain meds, monitor H/H and anti-emetics as needed. Would continue NGT for now and encourage up to chair often and ambulation; will make sure PT is consulted. Diltiazem drip, Digoxin per medicine and Cardiology. Use IS and continue NPO until he has better bowel function. PRATIMA ADAME DO Sep 10, 2022 11:25
[2022-09-10] MEDS: hydrALAZINE (APESOLINE) 20 MG/ML VIAL IV PRN (16:01)
[2022-09-10] MEDS: morphine INJ 4 MG/ML 1 ML (VIAL/SYRINGE) IV PRN ×2 (17:07→20:05)
[2022-09-10] MEDS: dilTIAZem DRIP PRE-MIX 125 ML IV SCH (17:53)
[2022-09-11] MEDS: meTOprolol 5 MG/5 ML (LOPRESSOR) VIAL IV SCH ×9 (00:08→23:42)
[2022-09-11] MEDS: morphine INJ 4 MG/ML 1 ML (VIAL/SYRINGE) IV PRN ×4 (00:08→20:26)
[2022-09-11] MEDS: RT-ALBUTEROL SULF 2.5 MG/3 ML PRE-MIX VIAL INH SCH ×4 (02:32→19:41)
[2022-09-11] MEDS: dilTIAZem DRIP PRE-MIX 125 ML IV SCH ×2 (03:23→15:58)
[2022-09-11 03:51] LABS: BASOPHILS # (AUTO) 0.1 10^3/uL (0.0-0.1); BASOPHILS % (AUTO) 1 % (0-10); EOSINOPHILS % (AUTO) 0 % (0-10); HEMATOCRIT 38 % (40-54); HEMOGLOBIN 11.9 g/dL (13.3-17.7); LYMPHOCYTES # (AUTO) 0.9 10^3/uL (1.0-4.0); LYMPHOCYTES % (AUTO) 10 % (12-44); MEAN CORPUSCULAR HEMOGLOBIN 30 pg (25-34); MEAN CORPUSCULAR HGB CONC 31 g/dL (32-36); MEAN CORPUSCULAR VOLUME 95 fL (80-99); MEAN PLATELET VOLUME 10.2 fL (9.0-12.2); MONOCYTES # (AUTO) 1.2 10^3/uL (0.0-1.0); MONOCYTES % (AUTO) 14 % (0-12); NEUTROPHILS # (AUTO) 6.2 10^3/uL (1.8-7.8); NEUTROPHILS % (AUTO) 71 % (42-75); PLATELET COUNT 271 10^3/uL (130-400); WHITE BLOOD COUNT 8.8 10^3/uL (4.3-11.0)
[2022-09-11 03:58] LABS: ALBUMIN 2.9 GM/DL (3.2-4.5); BILIRUBIN,TOTAL 0.5 MG/DL (0.1-1.0); CALCIUM 8.4 MG/DL (8.5-10.1); CREATININE SERUM 1.09 MG/DL (0.60-1.30); POTASSIUM 3.5 MMOL/L (3.6-5.0); TOTAL PROTEIN 5.7 GM/DL (6.4-8.2)
[2022-09-11 04:13] LABS: MAGNESIUM 2.7 MG/DL (1.6-2.4)
[2022-09-11] MEDS: POTASSIUM CL 10MEQ/50ML IVPB 50 ML IV SCH ×3 (04:45→05:34)
[2022-09-11] MEDS: KCL 20 MEQ TAB (K-DUR) PO SCH (04:46)
[2022-09-11] MEDS: MAGNESIUM 1 GM/100 ML IVPB 100 ML IV SCH (04:46)
--- NOTE | 2022-09-11 07:47 | Progress Note - Surgery ---
MELINAGHAZALA 09/11/22 0747: Subjective Date Seen by a Provider: Sep 11, 2022 Time Seen by a Provider: 06:40 Subjective/Events-last exam Pt is resting in bed comfortably. Pt states improvement of abd pain today, rating it a 2/10. Pt states that he has been having small amounts of flatus but nurses deny BM. Per nurse, pt had 400cc out of NG over the last 12 hours. ABD XRAY showed unchanged gaseous distention of the colon compatible with pt's post- op ileus. Pt states that he has been ambulating to his chair yesterday with assistance. Pt has no complaints at this time but does express desire to be DC soon. Pt denies vomiting, nausea, SOB, chills, AMADO, and lightheadedness. Review of Systems General: No Chills, No Night Sweats HEENT: No Head Aches, No Eye Pain Pulmonary: No Dyspnea, No Cough Cardiovascular: No: Chest Pain, Lt Headedness Gastrointestinal: Abdominal Pain (improved); No: Nausea, Vomiting Genitourinary: No Dysuria, No Hematuria Musculoskeletal: No: neck pain, shoulder pain Neurological: No: Weakness, Numbness Objective Exam Vital Signs Date Time Temp Pulse Resp B/P (MAP) Pulse Ox O2 Delivery O2 Flow Rate FiO2 09/11/22 07:07 94 09/11/22 07:07 93 OxyMask 2.00 09/11/22 06:00 70 20 136/67 (90) 96 OxyMask 3.00 09/11/22 05:00 111 20 121/79 (93) 95 OxyMask 3.00 09/11/22 04:00 OxyMask 3.00 95 09/11/22 04:00 86 20 126/81 (96) 95 OxyMask 3.00 09/11/22 03:23 92 127/84 09/11/22 03:16 92 127/84 09/11/22 03:00 93 18 117/64 (81) 94 OxyMask 3.00 09/11/22 02:33 96 OxyMask 2.00 09/11/22 02:00 93 18 127/82 (97) 95 OxyMask 3.00 09/11/22 01:00 92 09/11/22 01:00 80 20 124/81 (95) 96 OxyMask 3.00 09/11/22 00:00 37.6 09/11/22 00:00 103 19 127/84 (98) 95 OxyMask 3.00 09/10/22 23:59 OxyMask 3.00 95 09/10/22 23:00 138 19 119/87 (98) 97 OxyMask 3.00 09/10/22 22:25 100 126/86 09/10/22 22:00 107 18 123/78 (93) 97 OxyMask 3.00 09/10/22 21:00 100 20 126/86 (99) 96 OxyMask 3.00 09/10/22 20:12 96 OxyMask 2.00 09/10/22 20:00 99 18 121/80 (94) 97 OxyMask 3.00 09/10/22 19:48 37.7 OxyMask 3.00 09/10/22 19:48 OxyMask 3.00 95 09/10/22 19:00 127 09/10/22 19:00 137 19 123/76 (92) 95 OxyMask 3.00 09/10/22 18:00 121 20 117/77 (90) 95 OxyMask 3.00 09/10/22 17:53 107 132/91 09/10/22 17:00 133 22 148/80 (102) 94 OxyMask 3.00 09/10/22 16:50 137 09/10/22 16:00 OxyMask 3.00 95 09/10/22 16:00 137 21 153/90 (111) 95 OxyMask 3.00 09/10/22 15:46 37.8 09/10/22 15:30 135 24 152/100 (117) 97 OxyMask 3.00 09/10/22 15:00 135 26 140/87 (104) 96 OxyMask 3.00 09/10/22 14:39 97 OxyMask 2.00 09/10/22 14:00 107 20 127/85 (99) 97 OxyMask 3.00 09/10/22 13:00 120 27 134/83 (100) 91 OxyMask 3.00 09/10/22 12:23 120 09/10/22 12:00 37.3 09/10/22 12:00 OxyMask 3.00 94 09/10/22 12:00 116 18 140/85 (103) 96 OxyMask 3.00 09/10/22 11:00 118 25 126/76 (93) 95 OxyMask 3.00 09/10/22 10:00 118 25 123/76 (92) 94 OxyMask 3.00 09/10/22 09:00 117 15 137/88 (104) 94 OxyMask 3.00 09/10/22 08:00 117 17 129/84 (99) 95 OxyMask 3.00 09/10/22 08:00 OxyMask 3.00 94 I & O 09/11/22 07:00 Intake Total 100 ml Output Total 1880 ml Balance -1780 ml Capillary Refill : Less Than 3 SecondsLess Than 3 Seconds General Appearance: No Apparent Distress, Chronically ill HEENT: PERRL/EOMI Respiratory: No Accessory Muscle Use, No Respiratory Distress, Crackles (diffusely), Wheezing (diffusely) Cardiovascular: Irregularly Irregular, Tachycardia Peripheral Pulses: 2+ Dorsalis Pedis (R), 2+ Left Dors-Pedis (L) Gastrointestinal: abnormal bowel sounds (hypoactive), distended, other (bandage lower abd) Extremity: No Pedal Edema, Other (muscle tenderness over B/L LE ) Neurologic/Psychiatric: Alert Skin: Warm/Dry Results Lab Laboratory Tests 09/11/22 03:24: White Blood Count 8.8, Red Blood Count 4.01L, Hemoglobin 11.9L, Hematocrit 38L, Mean Corpuscular Volume 95, Mean Corpuscular Hemoglobin 30, Mean Corpuscular Hemoglobin Concent 31L, Red Cell Distribution Width 14.6H, Platelet Count 271, Mean Platelet Volume 10.2, Immature Granulocyte % (Auto) 4, Neutrophils (%) (Auto) 71, Lymphocytes (%) (Auto) 10L, Monocytes (%) (Auto) 14H, Eosinophils (%) (Auto) 0, Basophils (%) (Auto) 1, Neutrophils # (Auto) 6.2, Lymphocytes # (Auto) 0.9L, Monocytes # (Auto) 1.2H, Eosinophils # (Auto) 0.0, Basophils # (Auto) 0.1, Immature Granulocyte # (Auto) 0.4H, Sodium Level 147H, Potassium Level 3.5L, Chloride Level 111H, Carbon Dioxide Level 23, Anion Gap 13, Blood Urea Nitrogen 30H, Creatinine 1.09, Estimat Glomerular Filtration Rate 67, BUN/Creatinine Ratio 28, Glucose Level 118H, Calcium Level 8.4L, Corrected Calcium 9.3, Magnesium Level 2.7H, Total Bilirubin 0.5, Aspartate Amino Transf (AST/SGOT) 34, Alanine Aminotransferase (ALT/SGPT) 47, Alkaline Phosphatase 87, Total Protein 5.7L, Albumin 2.9L Radiology Date of Exam:09/10/22 ABDOMEN/KUB 1VIEW ABDOMEN/KUB 1VIEW INDICATION: Postoperative ileus. COMPARISON: 09/09/2022 TECHNIQUE: Supine AP view of the abdomen FINDINGS: Unchanged gaseous distention of the small bowel and colon. The greatest degree of distention of the ascending colon measuring up to 8 cm. The remaining curvilinear hyperdensities in the right lower quadrant that are in stable position since prior examination. Cholecystectomy clips are again noted. No features of free intraperitoneal air. IMPRESSION: 1. Stable position of 4 curvilinear hyperdensities in the right lower quadrant that could be surgical sponges. Alternatively, these could be extrinsic to the patient, and correlation with surgical history is advised. 2. No change in the gaseous distention of the colon that is compatible with patient's reported postoperative ileus. Dictated by: Dictated on workstation # [id number] Dict: 09/10/22 0549 Trans: 09/10/22 0959 [id number] Interpreted by: MARCEL BECKWITH MD Electronically signed by: MARCEL BECKWITH MD 09/10/22 0959 Assessment/Plan Assessment/Plan Assessment/Plan Post op illeus with NGT placement S/P laparoscopic cholecystectomy and umbilical hernia repair with mesh Afib on RVR h/o CHF Pt states improvement of abd pain today. Has been having small amounts flatus per pt but no BM. ABD XRAY yesterday showed unchanged gaseous distention of colon. NGT had an output of 400cc over 12 hours. Keep NGT in place until good BM or flatus. Continue to encourage ambulation with PT and have sitting in chair when able. Continue IVF, NPO, pain medications prn, IV abx, and anti-emetics prn. Have pt start using IS. PRATIMA ADAME DO 09/11/22 1303: Subjective Time Seen by a Provider: 12:46 Subjective/Events-last exam Pt seen and examined, sitting in bed. Denies BM and vomiting, but + flatus. NGT still in place. Review of Systems Pulmonary: No Dyspnea, No Cough Cardiovascular: No: Chest Pain Gastrointestinal: Abdominal Pain (improved); No: Nausea, Vomiting Objective Exam General Appearance: No Apparent Distress, Chronically ill, Obese HEENT: PERRL/EOMI Respiratory: No Accessory Muscle Use, No Respiratory Distress, Crackles (diffusely), Wheezing (diffusely) Cardiovascular: Irregularly Irregular, Tachycardia Gastrointestinal: abnormal bowel sounds (hypoactive), distended (about same as yesterday), other (bandage lower abd) Extremity: No Pedal Edema Assessment/Plan Assessment/Plan Assessment/Plan Anemia - stable Post op illeus with NGT placement S/P laparoscopic cholecystectomy and umbilical hernia repair with mesh Afib on RVR h/o CHF Pt states improvement of abd pain today. Has been having small amounts flatus per pt but no BM. ABD XRAY yesterday showed unchanged gaseous distention of colon; I reviewed it and it may be a little better. Most of gas is in large bowel. NGT had an output of 400cc over 12 hours. Keep NGT in place until good BM or flatus. Continue to encourage ambulation with PT and have sitting in chair when able. Continue IVF, NPO, pain medications prn, IV abx, and anti-emetics prn. Have pt start using IS Supervisory-Addendum Brief Verification & Attestation Participated in pt care: history, MDM, physical Personally performed: exam, history, MDM, supervision of care Care discussed with: Medical Student Procedures: n/a Verification and Attestation of Medical Student E/M Service A medical student performed and documented this service. I then reviewed and verified all information documented by the medical student and made modifications to such information, when appropriate. I personally performed a physical exam, medical decision making and then discussed any differences between the notes and made revisions as necessary to create one note. Pratima Adame , 09/11/22 , 13:03 GHAZALA SUMMERS Sep 11, 2022 07:47 PRATIMA ADAME DO Sep 11, 2022 13:03
[2022-09-11] MEDS: DIGOXIN 0.25 MG/ML (LANOXIN) 2 ML AMP IV SCH (08:05)
[2022-09-11] MEDS: SENNOSIDES 8.6 MG (SENOKOT) TAB PO SCH ×2 (09:01→21:12)
[2022-09-11] MEDS: DOCUSATE SODIUM 100 MG (COLACE) CAP PO SCH ×2 (09:01→21:12)
[2022-09-11] MEDS: CLOPIDOGREL 75 MG (PLAVIX) TABLET PO SCH (09:01)
[2022-09-11] MEDS: D5 1/2 NS 1000 ML IV SOLUTION 1,000 ML IV SCH ×2 (09:58→20:24)
[2022-09-11] MEDS: metroNIDAZOLE 500MG/100ML IVPB 100 ML IV SCH ×2 (09:58→20:25)
--- NOTE | 2022-09-11 10:18 | Tele-ICU Progress Note ---
Subjective Date Seen by a Provider: Sep 11, 2022 Time Seen by a Provider: 10:17 Subjective/Events-last exam (Tele-ICU Physician , Progress Note ) Service provided via interactive audio and video telecommunications E-CARE system to a patient admitted to ICU bed in [facility]. Available chart/ vitals / labs / Images reviewed Video assessment done using teleICU camera, rest of exam as per RN Discussed with RN Events overnight : FEBRILE hemodynamically stable Respiratory - 3l I/O = pos 1800 Drips: cardizem Pressors- no Consultants: sx Hospital course: (09/05) Admitted an 87y/o with acute cholecystits. On Plavix and Eliquis and will wait 48 hours for OR. 09/07-s/p laparoscopic cholecystectomy , laparoscopic umbilical hernia repair extubated in PACU , In ICU on BIPAP 80% , 15/8 rr 23 550 MV 12 L 09/08 - 5L NC , cardizem gtt 20 , digx1 , 1 L NS given 09/09- cardizem gtt 20 , NG placed , large gastric output , started on LOVENOX full dose 09/11 - persistent fever 101 ( finished zosyn ) - started on flagyl and cefepime , - added gentel IVF for NPO and hyperNa Patient is seen today due to persistent resp insufficency , ICU care A/P Acute cholecystitis -s/p laparoscopic cholecystectomy , laparoscopic umbilical hernia repair 09/07 - Zosyn finished , fever stil 101. 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 - as per cardiology Pulm HTN - RVSP 50 03/2023 - monitor fluid status carefuly Nutrition - NPO 09/09 ( NG on LIS ) Right tight tenderness - as per sx eval , not cellululitis as per description- resolving Lines : periph , (Central Line Necessity Reviewed) Hassan: 09/07 OG: Nutrition: back to NPO 09/09 Analgesia: Anxiety/ delirium VTE Prophylaxis: lovenox full dose 09/09 , SCD Stress Ulcer Prophylaxis: ppi Plans in collaboration with bedside consultants and IM MDs. Discussed with RN to reach out if any questions or concerns A total of 31 minutes of critical care time was devoted to this patient today, required to treat and/or prevent further deterioration of critical care condition ( as above ) I am remotely monitoring this patient from another state. I am unable to do the bedside exam, and history/physical and pertinent information is taken from other notes in the computer and bedside staff. Sepsis Event Evaluation Height, Weight, BMI Height: 5'8.00" Weight: 185lbs. 0.0oz. 83.411821vg; 26.48 BMI Method:Stated Exam Exam Patient acknowledged, consented, and participated in this virtual visit which was conducted using real time audio/video Vital Signs Date Time Temp Pulse Resp B/P (MAP) Pulse Ox O2 Delivery O2 Flow Rate FiO2 09/11/22 10:08 140 09/11/22 07:44 38.7 09/11/22 07:07 94 09/11/22 07:07 93 OxyMask 2.00 09/11/22 07:00 93 16 125/101 (109) 93 OxyMask 3.00 09/11/22 06:00 70 20 136/67 (90) 96 OxyMask 3.00 09/11/22 05:00 111 20 121/79 (93) 95 OxyMask 3.00 09/11/22 04:00 OxyMask 3.00 95 09/11/22 04:00 86 20 126/81 (96) 95 OxyMask 3.00 09/11/22 03:23 92 127/84 09/11/22 03:16 92 127/84 09/11/22 03:00 93 18 117/64 (81) 94 OxyMask 3.00 09/11/22 02:33 96 OxyMask 2.00 09/11/22 02:00 93 18 127/82 (97) 95 OxyMask 3.00 09/11/22 01:00 92 09/11/22 01:00 80 20 124/81 (95) 96 OxyMask 3.00 09/11/22 00:00 37.6 09/11/22 00:00 103 19 127/84 (98) 95 OxyMask 3.00 09/10/22 23:59 OxyMask 3.00 95 09/10/22 23:00 138 19 119/87 (98) 97 OxyMask 3.00 09/10/22 22:25 100 126/86 09/10/22 22:00 107 18 123/78 (93) 97 OxyMask 3.00 09/10/22 21:00 100 20 126/86 (99) 96 OxyMask 3.00 09/10/22 20:12 96 OxyMask 2.00 09/10/22 20:00 99 18 121/80 (94) 97 OxyMask 3.00 09/10/22 19:48 37.7 OxyMask 3.00 09/10/22 19:48 OxyMask 3.00 95 09/10/22 19:00 127 09/10/22 19:00 137 19 123/76 (92) 95 OxyMask 3.00 09/10/22 18:00 121 20 117/77 (90) 95 OxyMask 3.00 09/10/22 17:53 107 132/91 09/10/22 17:00 133 22 148/80 (102) 94 OxyMask 3.00 09/10/22 16:50 137 09/10/22 16:00 OxyMask 3.00 95 09/10/22 16:00 137 21 153/90 (111) 95 OxyMask 3.00 09/10/22 15:46 37.8 09/10/22 15:30 135 24 152/100 (117) 97 OxyMask 3.00 09/10/22 15:00 135 26 140/87 (104) 96 OxyMask 3.00 09/10/22 14:39 97 OxyMask 2.00 09/10/22 14:00 107 20 127/85 (99) 97 OxyMask 3.00 09/10/22 13:00 120 27 134/83 (100) 91 OxyMask 3.00 09/10/22 12:23 120 09/10/22 12:00 37.3 09/10/22 12:00 OxyMask 3.00 94 09/10/22 12:00 116 18 140/85 (103) 96 OxyMask 3.00 09/10/22 11:00 118 25 126/76 (93) 95 OxyMask 3.00 I & O 09/11/22 07:00 Intake Total 100 ml Output Total 1880 ml Balance -1780 ml Height & Weight Height: 5'8.00" Weight: 185lbs. 0.0oz. 83.827450ok; 26.48 BMI Method:Stated General Appearance: No Apparent Distress, Chronically ill HEENT: PERRL/EOMI Respiratory: No Accessory Muscle Use, No Respiratory Distress, Crackles (diffusely), Wheezing (diffusely) Cardiovascular: Irregularly Irregular, Tachycardia Capillary Refill: Less Than 3 Seconds Peripheral Pulses: 2+ Dorsalis Pedis (R), 2+ Left Dors-Pedis (L) Gastrointestinal: abnormal bowel sounds (hypoactive), distended Extremity: No Pedal Edema, Other (muscle tenderness over B/L LE ) Neurologic/Psychiatric: Alert Skin: Warm/Dry Results Lab Laboratory Tests 09/10/22 04:07 09/11/22 03:24 Assessment/Plan Assessment/Plan 1 SAMUEL ALVAREZ MD Sep 11, 2022 10:18
[2022-09-11] MEDS: CEFEPIME INJECTION 1,000 MG in NS (IVPB) 50 ML IV SCH ×3 (11:40→20:24)
[2022-09-11] MEDS: ENOXAPARIN 100 MG/1 ML (LOVENOX) SYR SC SCH ×2 (12:00→23:42)
--- NOTE | 2022-09-11 12:18 | Cardiology Progress Note ---
Subjective Date Seen by Provider: Sep 11, 2022 Time Seen by Provider: 10:30 Subjective/Events-last exam Patient is in bed, continues to c/o abdominal distension and pain. Continues to have dyspnea. Objective-Cardiology Exam Last Set of Vital Signs Vital Signs 09/11/22 09/11/22 15:51 16:00 Temp 36.6 Pulse 142 Resp 21 B/P (MAP) 138/79 (98) Pulse Ox 98 O2 Delivery OxyMask O2 Flow Rate 3.00 FiO2 95 I&O Intake and Output 09/11/22 00:00 Intake Total 100 ml Output Total 1850 ml Balance -1750 ml Intake Oral 0 ml IV Total 100 ml Output Urine Total 1250 ml Gastric Drainage Total 600 ml General: Alert, Oriented X3, Cooperative, No Acute Distress HEENT: Atraumatic, PERRLA, EOMI, Mucous Memb Moist/[place] Neck: Supple, No JVD Lungs: Other (coarse lung sounds b/l) Heart: Regular Rate, Normal S1, Normal S2, Other (tachycardic) Abdomen: Other (distended with absent bowel sounds, incisions clean/dry/intact) Extremities: Normal Pulses Skin: No Breakdown, No Significant Lesion Neuro: Normal Speech, Strength at 5/5 X4 Ext, Normal Tone Psych/Mental Status: Mental Status NL, Mood NL Results Lab Laboratory Tests 09/11/22 03:24 A/P-Cardiology Admission Diagnosis Acute cholecystitis Coronary artery disease Permanent atrial fibrillation Hypertension Assessment/Plan Status post acute respiratory failure postoperatively on September 07, 2022 required BiPAP. Currently on oxygen mask. Acute cholecystitis, status postcholecystectomy done on September 07, 2022. Postop ileus. Still having distended abdomen with diminished bowel sounds, has NG tube with continuous suction Atrial fibrillation/atrial flutter, currently tachycardic. History of permanent atrial fibrillation. Cannot tolerate oral medication due to postoperative ileus. I will continue with Cardizem drip, Lopressor IV, Digoxin IV and Lovenox Eliquis is on hold Continue to monitor heart rate and blood pressure Status post acute congestive heart failure with fluid overload postoperatively, history of congestive heart failure with chronic compensated left ventricular diastolic dysfunction 2D echo was done in March 2022 with normal left ventricular systolic function ejection fraction 60 to 65% with dilated left atrium and pulmonary hypertension with PA pressure 40 to 45 mmHg Coronary artery disease, history of non-ST elevation myocardial infarction in March 2022 - Cardiac cath of 07-14-18: 90% [id number] vessel stenosis of the left anterior descending artery within a small caliber vessel to which balloon angioplasty was carried out which reduced the stenosis to less than 50%. The rest of the coronary vessels have moderate diffuse disease. There is a patent stent in the right coronary with a 50% in-stent restenosis (unchanged compared to previous study). Elevated left ventricular end-diastolic pressure. - MPI of 12/07/19: no ischemia or infarction, LVEF 48% (appeared to be higher, subjectively) - Card cath on 03/25/22: 90-85 prox and mid LAD stenosis treated with PTCA and then 2.25 x 23 mm GABRIELA, distal LAD, distal LCX, and prox RI have severe disease that is not amenable to intervention, RCA is dominant with patent prox stent with up to 50 instent and distal RCA with up to 50 stenoses, LVEDP 22 mmHg Has been maintained on aspirin and Plavix last taken on September 05, 2022. History of syncope and collapse reported pulseless per family on March 24, 2022. Had chest compression Loop monitor implanted on March 26, 2022. History of rib fractures after chest compression Hypertension, continue to monitor blood pressure Hyperlipidemia, maintained on statin. Currently on hold History of umbilical hernia. Questionable underlying sleep apnea Lumbar spondylosis and spinal stenosis, followed by Dr. Mahan Supervisory-Addendum Brief Supervisory Addendum Participated in pt care: history, MDM, physical Personally performed: exam, history, MDM Care discussed with: RENALDO Results interpretation: Verified all documentation Notes: Patient was seen and evaluated with Maribell, examination performed, management plan was discussed, agree with the current scribed note, I made few changes to the note using Italic font Patient was seen at bedside, still having abdominal distention, tachycardic Try to achieve adequate heart rate control with the use of IV Cardizem and IV Lopressor Continue with NG suction and monitor electrolytes MARIBELL RIVERO Sep 11, 2022 12:18 IAN ERICKSON MD Sep 11, 2022 17:09
--- NOTE | 2022-09-11 13:12 | Progress Note ---
[facility] 1312: Subjective Date Seen by a Provider: Sep 11, 2022 Time Seen by a Provider: 09:10 Subjective/Events-last exam Minh is an 87y WM s/p cholecystectomy and hernia repair with post op ileus, also with afib. Today pt lying in bed and reports feeling better. He has a cough and his abdominal pain at incisions worsens with cough. Denies CP, SOB, nausea, vomiting. NGT is in place and draining dark green liquid, 500cc overnight. Hassan draining. Denies passing flatus or BM. He remains tachycardic. Maintained on cardizem drip. Review of Systems HEENT: No Head Aches, No Sinus Congestion Pulmonary: Cough Cardiovascular: No: Chest Pain Gastrointestinal: Abdominal Pain (improved); No: Nausea, Vomiting Objective Exam Last Set of Vital Signs Vital Signs Date Time Temp Pulse Resp B/P (MAP) Pulse Ox O2 Delivery O2 Flow Rate FiO2 09/11/22 12:33 69 09/11/22 11:53 36.7 09/11/22 11:00 15 124/84 (97) 93 OxyMask 3.00 09/11/22 04:00 95 Capillary Refill : Less Than 3 SecondsLess Than 3 Seconds I&O Intake and Output 09/11/22 00:00 Intake Total 100 ml Output Total 1850 ml Balance -1750 ml Intake Oral 0 ml IV Total 100 ml Output Urine Total 1250 ml Gastric Drainage Total 600 ml General: Alert, Oriented X3, Cooperative, No Acute Distress HEENT: Atraumatic, PERRLA, EOMI, Mucous Memb Moist/[place] Neck: Supple, No JVD Lungs: Other (coarse lung sounds b/l) Heart: Regular Rate, Normal S1, Normal S2 Abdomen: Other (distended with absent bowel sounds, incisions clean/dry/intact) Extremities: No Edema, Normal Pulses Skin: No Significant Lesion Psych/Mental Status: Mental Status NL, Mood NL Results Lab Laboratory Tests 09/11/22 03:24: White Blood Count 8.8, Red Blood Count 4.01L, Hemoglobin 11.9L, Hematocrit 38L, Mean Corpuscular Volume 95, Mean Corpuscular Hemoglobin 30, Mean Corpuscular Hemoglobin Concent 31L, Red Cell Distribution Width 14.6H, Platelet Count 271, Mean Platelet Volume 10.2, Immature Granulocyte % (Auto) 4, Neutrophils (%) (Auto) 71, Lymphocytes (%) (Auto) 10L, Monocytes (%) (Auto) 14H, Eosinophils (%) (Auto) 0, Basophils (%) (Auto) 1, Neutrophils # (Auto) 6.2, Lymphocytes # (Auto) 0.9L, Monocytes # (Auto) 1.2H, Eosinophils # (Auto) 0.0, Basophils # (Auto) 0.1, Immature Granulocyte # (Auto) 0.4H, Sodium Level 147H, Potassium Level 3.5L, Chloride Level 111H, Carbon Dioxide Level 23, Anion Gap 13, Blood Urea Nitrogen 30H, Creatinine 1.09, Estimat Glomerular Filtration Rate 67, BUN/Creatinine Ratio 28, Glucose Level 118H, Calcium Level 8.4L, Corrected Calcium 9.3, Magnesi um Level 2.7H, Total Bilirubin 0.5, Aspartate Amino Transf (AST/SGOT) 34, Alanine Aminotransferase (ALT/SGPT) 47, Alkaline Phosphatase 87, Total Protein 5.7L, Albumin 2.9L Assessment/Plan Assessment/Plan Assess & Plan/Chief Complaint Assessment: Acute cholecystitischolecystectomy postop day #4 Postop ileus on 09/09/2022 A. fib with RVR maintained on cardizem drip History of chronic atrial fibrillation CHF Hypertension CAD Status post cardiac arrest at home March 2022 Hypokalemia Plan: Cardizem drip Digoxin ICU Cardiology Supportive care NPO NG tube K replacement Encourage pt to ambulate to chair JJKAREN DO 09/12/22 0506: Subjective Subjective/Events-last exam Patient having more complications NG tube still in place No bowel sounds are noted Distention is still present A. fib with RVR continues Objective Exam General: Alert, Oriented X3, Cooperative, No Acute Distress Lungs: Other (coarse lung sounds b/l) Heart: Regular Rate Psych/Mental Status: Mental Status NL Assessment/Plan Assessment/Plan Assess & Plan/Chief Complaint Continue supportive care Very complicated case Supervisory-Addendum Brief Verification & Attestation Participated in pt care: history, MDM, physical Personally performed: exam, history, MDM, supervision of care Care discussed with: Medical Student Procedures: n/a Results interpretation: Verified all documentation Verification and Attestation of Medical Student E/M Service A medical student performed and documented this service in my presence. I reviewed and verified all information documented by the medical student and made modifications to such information, when appropriate. I personally performed the physical exam and medical decision making. Karen Jj, Sep 12, 2022,05:05 ADAN APPIAH Sep 11, 2022 13:12 KARNE JJ DO Sep 12, 2022 05:06
[2022-09-12] MEDS: meTOprolol 5 MG/5 ML (LOPRESSOR) VIAL IV SCH ×9 (02:56→20:26)
[2022-09-12] MEDS: RT-ALBUTEROL SULF 2.5 MG/3 ML PRE-MIX VIAL INH SCH ×4 (03:14→22:24)
[2022-09-12] MEDS: dilTIAZem DRIP PRE-MIX 125 ML IV SCH ×2 (04:01→17:32)
[2022-09-12 04:55] LABS: BASOPHILS # (AUTO) 0.1 10^3/uL (0.0-0.1); BASOPHILS % (AUTO) 1 % (0-10); EOSINOPHILS # (AUTO) 0.1 10^3/uL (0.0-0.3); EOSINOPHILS % (AUTO) 1 % (0-10); HEMATOCRIT 38 % (40-54); LYMPHOCYTES # (AUTO) 1.1 10^3/uL (1.0-4.0); LYMPHOCYTES % (AUTO) 11 % (12-44); MEAN CORPUSCULAR HEMOGLOBIN 30 pg (25-34); MEAN CORPUSCULAR HGB CONC 32 g/dL (32-36); MEAN CORPUSCULAR VOLUME 95 fL (80-99); MEAN PLATELET VOLUME 10.1 fL (9.0-12.2); MONOCYTES # (AUTO) 1.1 10^3/uL (0.0-1.0); MONOCYTES % (AUTO) 11 % (0-12); NEUTROPHILS # (AUTO) 7.1 10^3/uL (1.8-7.8); NEUTROPHILS % (AUTO) 72 % (42-75); PLATELET COUNT 282 10^3/uL (130-400); WHITE BLOOD COUNT 9.9 10^3/uL (4.3-11.0)
[2022-09-12 05:04] LABS: ALBUMIN 2.8 GM/DL (3.2-4.5); POTASSIUM 3.4 MMOL/L (3.6-5.0)
[2022-09-12 05:05] LABS: CALCIUM 8.2 MG/DL (8.5-10.1)
[2022-09-12 05:07] LABS: TOTAL PROTEIN 5.4 GM/DL (6.4-8.2)
[2022-09-12 05:09] LABS: BILIRUBIN,TOTAL 0.5 MG/DL (0.1-1.0)
[2022-09-12 05:10] LABS: CREATININE SERUM 0.95 MG/DL (0.60-1.30)
[2022-09-12 05:13] LABS: MAGNESIUM 2.6 MG/DL (1.6-2.4)
[2022-09-12] MEDS: KCL 20 MEQ TAB (K-DUR) PO SCH (05:20)
[2022-09-12] MEDS: POTASSIUM CL 10MEQ/50ML IVPB 50 ML IV SCH ×2 (05:20→05:50)
[2022-09-12] MEDS: MAGNESIUM 1 GM/100 ML IVPB 100 ML IV SCH (05:20)
[2022-09-12] MEDS: D5 1/2 NS 1000 ML IV SOLUTION 1,000 ML IV SCH ×2 (05:49→15:33)
[2022-09-12] MEDS: CEFEPIME INJECTION 1,000 MG in NS (IVPB) 50 ML IV SCH ×3 (05:50→17:31)
--- NOTE | 2022-09-12 07:39 | Progress Note - Surgery ---
GHAZALA SUMMERS 09/12/22 0739: Subjective Date Seen by a Provider: Sep 12, 2022 Time Seen by a Provider: 06:30 Subjective/Events-last exam Pt is sleeping comfortably in bed. Pt states that he feels better today and states that he is experiencing no pain. Pt states that he is still experiencing small amounts of gas, but no BM. Pt has suppository scheduled for today. NGT continues to have good output, yielding 400ccs over 12hrs, 1100ccs over 24hr. Pt was seen by PT and was able to ambulate to chair yesterday. Pt states that he has been using IS without issue but does note a worsening cough producing mucus. Pt denies CP, worsening SOB, nausea, vomiting, AMADO, chills, or lightheadedness. Review of Systems General: No Chills, No Night Sweats HEENT: No Head Aches, No Eye Pain Pulmonary: No Dyspnea; Cough (producing mucus) Cardiovascular: No: Chest Pain, Edema, Lt Headedness Gastrointestinal: No: Nausea, Vomiting, Abdominal Pain Genitourinary: No Dysuria, No Hematuria Musculoskeletal: No: neck pain, shoulder pain Neurological: No: Weakness, Numbness Objective Exam Vital Signs Date Time Temp Pulse Resp B/P (MAP) Pulse Ox O2 Delivery O2 Flow Rate FiO2 09/12/22 07:28 99 OxyMask 3.00 09/12/22 06:00 92 17 122/69 (86) 99 OxyMask 3.00 09/12/22 05:00 87 14 130/85 (100) 98 OxyMask 3.00 09/12/22 04:41 101 124/66 09/12/22 04:00 OxyMask 3.00 95 09/12/22 04:00 36.6 09/12/22 04:00 71 23 123/71 (88) 99 OxyMask 3.00 09/12/22 03:00 86 20 117/81 (93) 98 OxyMask 3.00 09/12/22 02:00 90 17 127/85 (99) 99 OxyMask 3.00 09/12/22 01:00 105 21 126/76 (93) 97 OxyMask 3.00 09/12/22 01:00 101 09/12/22 00:00 69 17 123/66 (85) 99 OxyMask 3.00 09/11/22 23:55 OxyMask 3.00 95 09/11/22 23:47 36.9 09/11/22 23:00 112 23 125/78 (94) 99 OxyMask 3.00 09/11/22 22:21 109 124/66 09/11/22 22:00 112 21 129/79 (96) 99 OxyMask 3.00 09/11/22 21:00 80 20 128/62 (84) 97 OxyMask 3.00 09/11/22 20:00 113 20 128/76 (93) 98 OxyMask 3.00 09/11/22 19:57 37.7 09/11/22 19:54 OxyMask 3.00 95 09/11/22 19:44 98 OxyMask 3.00 09/11/22 19:00 109 09/11/22 19:00 94 21 121/72 (88) 98 OxyMask 3.00 09/11/22 18:00 69 23 124/66 (85) 98 OxyMask 3.00 09/11/22 17:00 141 17 132/85 (101) 99 OxyMask 3.00 09/11/22 16:00 142 21 138/79 (98) 98 OxyMask 3.00 09/11/22 16:00 OxyMask 3.00 95 09/11/22 15:58 142 138/106 09/11/22 15:51 36.6 09/11/22 15:08 100 OxyMask 3.00 09/11/22 15:00 95 14 139/63 (88) 98 OxyMask 3.00 09/11/22 14:00 140 22 140/89 (106) 99 OxyMask 3.00 09/11/22 13:00 99 15 130/65 (86) 99 OxyMask 3.00 09/11/22 12:33 69 09/11/22 12:00 140 19 141/84 (103) 98 OxyMask 3.00 09/11/22 12:00 OxyMask 3.00 97 09/11/22 11:53 36.7 09/11/22 11:00 138 15 124/84 (97) 93 OxyMask 3.00 09/11/22 10:08 140 09/11/22 10:00 140 18 120/74 (89) 93 OxyMask 3.00 09/11/22 09:00 122 17 120/83 (95) 93 OxyMask 3.00 09/11/22 08:00 142 19 132/79 (96) 94 OxyMask 3.00 09/11/22 08:00 OxyMask 3.00 98 09/11/22 07:44 38.7 I & O 09/12/22 07:00 Intake Total 100 ml Output Total 2350 ml Balance -2250 ml Capillary Refill : Less Than 3 SecondsLess Than 3 Seconds General Appearance: No Apparent Distress, Chronically ill, Obese HEENT: PERRL/EOMI Respiratory: No Respiratory Distress, Accessory Muscle Use, Crackles (B/L mid to base), Wheezing (expiratory B/L) Cardiovascular: Regular Rate, Rhythm, No Murmur Peripheral Pulses: 2+ Dorsalis Pedis (R), 2+ Left Dors-Pedis (L) Gastrointestinal: abnormal bowel sounds (hypoactive), distended (unchanged from yesterday), other (bandage lower abd) Extremity: No Calf Tenderness, No Pedal Edema Neurologic/Psychiatric: Alert Skin: Normal Color, Warm/Dry, Other Results Lab Laboratory Tests 09/12/22 04:46: White Blood Count 9.9, Red Blood Count 3.97L, Hemoglobin 12.0L, Hematocrit 38L, Mean Corpuscular Volume 95, Mean Corpuscular Hemoglobin 30, Mean Corpuscular Hemoglobin Concent 32, Red Cell Distribution Width 14.6H, Platelet Count 282, Mean Platelet Volume 10.1, Immature Granulocyte % (Auto) 5, Neutrophils (%) (Auto) 72, Lymphocytes (%) (Auto) 11L, Monocytes (%) (Auto) 11, Eosinophils (%) (Auto) 1, Basophils (%) (Auto) 1, Neutrophils # (Auto) 7.1, Lymphocytes # (Auto) 1.1, Monocytes # (Auto) 1.1H, Eosinophils # (Auto) 0.1, Basophils # (Auto) 0.1, Immature Granulocyte # (Auto) 0.5H, Sodium Level 148H, Potassium Level 3.4L, Chloride Level 111H, Carbon Dioxide Level 26, Anion Gap 11, Blood Urea Nitrogen 21H, Creatinine 0.95, Estimat Glomerular Filtration Rate 78, BUN/Creatinine Ratio 22, Glucose Level 176H, Calcium Level 8.2L, Corrected Calcium 9.2, Magnesium Level 2.6H, Total Bilirubin 0.5, Aspartate Amino Transf (AST/SGOT) 27, Alanine Aminotransferase (ALT/SGPT) 40, Alkaline Phosphatase 74, Total Protein 5.4L, Albumin 2.8L Assessment/Plan Assessment/Plan Assessment/Plan Post op illeus with NGT placement S/P laparoscopic cholecystectomy and umbilical hernia repair with mesh Afib on RVR h/o CHF Anemia - stable Pt's c/o no abd pain today. Still no BM, small amounts of flatus. Pt has suppository scheduled for later today. NGT continues to have output, 600cc over 12hrs. Keep NGT in place until good BM or flatus. Continue ambulation with PT. Continue IVF, NPO, pain medications prn, IV abx, anti-emetics prn, and IS use. EVERTON ADAME DO 09/12/22 1325: Subjective Time Seen by a Provider: 11:45 Subjective/Events-last exam Pt seen and examined, stated he feels better and finally had a BM with some flatus. Nurse stated his NGT came out as they were moving him back to bed; he denies nausea and wants something orally. Review of Systems General: No Chills, No Night Sweats Pulmonary: No Dyspnea; Cough (producing mucus) Cardiovascular: No: Chest Pain Gastrointestinal: No: Nausea, Vomiting, Abdominal Pain Objective Exam General Appearance: No Apparent Distress, Chronically ill, Obese HEENT: PERRL/EOMI Respiratory: No Respiratory Distress, Accessory Muscle Use, Crackles (B/L mid to base), Wheezing (expiratory B/L) Cardiovascular: No Murmur, Irregularly Irregular, Tachycardia Gastrointestinal: abnormal bowel sounds (hypoactive), distended (about same as yesterday) Neurologic/Psychiatric: Alert Skin: Normal Color, Warm/Dry Assessment/Plan Assessment/Plan Assessment/Plan Anemia - stable Post op illeus with NGT placement S/P laparoscopic cholecystectomy and umbilical hernia repair with mesh Afib on RVR h/o CHF Will leave NGT out since he had a BM and some flatus. Continue ambulation with PT. Continue IVF, and start sips of clears, pain medications prn, IV abx, anti- emetics prn, and IS use. Supervisory-Addendum Brief Verification & Attestation Participated in pt care: history, MDM, physical Personally performed: exam, history, MDM, supervision of care Care discussed with: Medical Student Procedures: n/a Verification and Attestation of Medical Student E/M Service A medical student performed and documented this service. I then reviewed and verified all information documented by the medical student and made modifications to such information, when appropriate. I personally performed a physical exam, medical decision making and then discussed any differences between the notes and made revisions as necessary to create one note. Everton Adame , 09/12/22 , 13:24 GHAZALA SUMMERS Sep 12, 2022 07:39 EVERTON ADAME DO Sep 12, 2022 13:25
--- NOTE | 2022-09-12 08:21 | Cardiology Progress Note ---
Subjective Date Seen by Provider: Sep 12, 2022 Time Seen by Provider: 08:19 Subjective/Events-last exam Patient was seen at bedside, feeling slightly better Had another fever last night. Review of Systems General: No Chills, No Night Sweats; Fatigue, Malaise; No Appetite, No Other HEENT: No Head Aches, No Visual Changes, No Eye Pain, No Ear Pain, No Dysphasia, No Sinus Congestion, No Post Nasal Drip, No Sore Throat, No Other Pulmonary: No Dyspnea, No Cough, No Pleuritic Chest Pain, No Other Cardiovascular: No: Chest Pain, Palpitations, Orthopnea, Paroxysmal Noc. Dyspnea, Edema, Lt Headedness, Other Objective-Cardiology Exam Last Set of Vital Signs Vital Signs 09/12/22 09/12/22 09/12/22 09/12/22 09/12/22 04:00 06:00 07:13 07:28 08:00 Temp 36.8 Pulse 88 Resp 17 B/P (MAP) 122/69 (86) Pulse Ox 99 O2 Delivery OxyMask O2 Flow Rate 3.00 FiO2 95 I&O Intake and Output 09/12/22 00:00 Intake Total 100 ml Output Total 2180 ml Balance -2080 ml Intake Oral 0 ml IV Total 100 ml Output Urine Total 1180 ml Gastric Drainage Total 900 ml Oral Regurgitation 100 ml General: Alert, Oriented X3, Cooperative, No Acute Distress HEENT: Atraumatic, PERRLA, EOMI, Mucous Memb Moist/[place] Neck: Supple, No JVD Lungs: Other (coarse lung sounds b/l) Heart: Regular Rate Abdomen: Other (distended with absent bowel sounds, incisions clean/dry/intact) Extremities: No Edema, Normal Pulses Skin: No Significant Lesion Neuro: Normal Speech, Strength at 5/5 X4 Ext, Normal Tone Psych/Mental Status: Mental Status NL Results Lab Laboratory Tests 09/12/22 04:46 A/P-Cardiology Admission Diagnosis Acute cholecystitis Coronary artery disease Permanent atrial fibrillation Hypertension Assessment/Plan Status post acute respiratory failure postoperatively on September 07, 2022 required BiPAP. Currently on oxygen mask. Acute cholecystitis, status postcholecystectomy done on September 07, 2022. Postop ileus. Slow improvement Fever, has been having temperature for the past 48 hours. Continue to managed by primary care physician Atrial fibrillation/atrial flutter, currently tachycardic. History of permanent atrial fibrillation. Cannot tolerate oral medication due to postoperative ileus. I will continue with Cardizem drip, Lopressor IV, Digoxin IV and Lovenox Eliquis is on hold Continue to monitor heart rate and blood pressure Status post acute congestive heart failure with fluid overload postoperatively, history of congestive heart failure with chronic compensated left ventricular diastolic dysfunction 2D echo was done in March 2022 with normal left ventricular systolic function ejection fraction 60 to 65% with dilated left atrium and pulmonary hypertension with PA pressure 40 to 45 mmHg Coronary artery disease, history of non-ST elevation myocardial infarction in March 2022 - Cardiac cath of 07-14-18: 90% [id number] vessel stenosis of the left anterior descending artery within a small caliber vessel to which balloon angioplasty was carried out which reduced the stenosis to less than 50%. The rest of the coronary vessels have moderate diffuse disease. There is a patent stent in the right coronary with a 50% in-stent restenosis (unchanged compared to previous study). Elevated left ventricular end-diastolic pressure. - MPI of 12/07/19: no ischemia or infarction, LVEF 48% (appeared to be higher, subjectively) - Card cath on 03/25/22: 90-85 prox and mid LAD stenosis treated with PTCA and then 2.25 x 23 mm GABRIELA, distal LAD, distal LCX, and prox RI have severe disease that is not amenable to intervention, RCA is dominant with patent prox stent with up to 50 instent and distal RCA with up to 50 stenoses, LVEDP 22 mmHg Has been maintained on aspirin and Plavix last taken on September 05, 2022. History of syncope and collapse reported pulseless per family on March 24, 2022. Had chest compression Loop monitor implanted on March 26, 2022. History of rib fractures after chest compression Hypertension, continue to monitor blood pressure Hyperlipidemia, maintained on statin. Currently on hold History of umbilical hernia. Questionable underlying sleep apnea Lumbar spondylosis and spinal stenosis, followed by IAN Fontaine MD Sep 12, 2022 08:21
[2022-09-12] MEDS: PANTOPRAZOLE 40 MG (PROTONIX) VIAL IV SCH (08:52)
[2022-09-12] MEDS: SENNOSIDES 8.6 MG (SENOKOT) TAB PO SCH ×2 (08:52→20:27)
[2022-09-12] MEDS: DOCUSATE SODIUM 100 MG (COLACE) CAP PO SCH ×2 (08:52→20:26)
[2022-09-12] MEDS: CLOPIDOGREL 75 MG (PLAVIX) TABLET PO SCH (08:52)
[2022-09-12] MEDS: metroNIDAZOLE 500MG/100ML IVPB 100 ML IV SCH ×2 (08:52→20:26)
[2022-09-12] MEDS: DIGOXIN 0.25 MG/ML (LANOXIN) 2 ML AMP IV SCH (08:52)
[2022-09-12] MEDS: D5W 1000 ML IV SOLUTION 1,000 ML IV SCH (09:30)
[2022-09-12] MEDS: BISACODYL 10 MG SUPP (DULCOLAX) PR SCH (09:41)
--- NOTE | 2022-09-12 10:11 | Physical Therapy Evaluation ---
PT Evaluation-General Medical Diagnosis Admission Date Sep 05, 2022 at 19:41 Medical Diagnosis: acute cholecystitis Onset Date: Sep 05, 2022 Therapy Diagnosis Therapy Diagnosis: debility/weakness Height/Weight Height (Feet): 5 Height (Inches): 8.00 Weight (Pounds): 185 Weight (Ounces): 0.0 Precautions Precautions/Isolations: Standard Precautions Weight Bear Status Right Lower Extremity: Right Weight Bearing/Tolerated Left Lower Extremity: Left Weight Bearing/Tolerated Referral Physician: Roshni Reason for Referral: Evaluation/Treatment Medical History Pertinent Medical History: Atrial Fib, CAD, Heart Failure, HTN Current History ER secondary to abdominal pain/s/p cholecystectomy and hernia repair Reviewed History: Yes Social History Home: Single Level Prior Prior Level of Function SCALE: Activities may be completed with or without assistive devices. 3-Fqrwrwmqdb-lhwulwa completes the activity by him/herself with no assistance from a helper. 5-Set-up or Clean-up Assistance-helper sets up or cleans up; patient completes activity. [place] assists only prior to or following the activity. 4-Supervision or Touching Assistance-helper provides verbal cues and/or touching/steadying and/or contact guard assistance as patient completes activity. Assistance may be provided throughout the activity or intermittently. 3-Partial/Moderate Assistance-helper does LESS THAN HALF the effort. [place] lifts, holds or supports trunk or limbs, but provides less than half the effort. 2-Substantial/Maximal Assistance-helper does MORE THAN HALF the effort. [place] lifts or holds trunk or limbs and provides more than half the effort. 8-Gjvxpnwuc-wyekni does ALL the effort. Patient does none of the effort to complete the activity. Or, the assistance of 2 or more helpers is required for the patient to complete the activity. If activity was not attempted, code reason: 7-Patient Refused. 9-Not Applicable-not attempted and the patient did not perform the activity before the current illness, exacerbation or injury. 10-Not Attempted due to Environmental Limitations-(lack of equipment, weather restraints, etc.). 88-Not Attempted due to Medical Conditions or Safety Concerns. Bed Mobility: 6 Transfers (B,C,W/C): 6 Gait: 6 Stairs: 6 Indoor Mobility (Ambulation): Independent Stairs: Independent Prior Devices Use: None PT Evaluation-Current Subjective Patient agrees to PT. He reports,"It feels good to do something." Objective Patient Orientation: Normal For Age Attachments: NG Tube, Hassan Catheter, IV ROM/Strength ROM Lower Extremities bilateral LE WFL Strength Lower Extremities 4/5 grossly bilateral LE all planes Integumentary/Posture Integumentary refer to nursing notes Bowel Incontinence: No Bladder Incontinence: Hassan Cath Posture WFL Neuromuscular (Tone, Coordination, Reflexes) grossly intact Sensory Vision: Functional Hearing: Functional Transfers Lying to Sitting/Side of Bed(Q: 3 Sit to Stand (QC): 4 Chair/Ptm-pa-Orhav Xfer(QC): 4 Toilet Transfer (QC): 4 Gait Mode of Locomotion: Walk Anticipated Mode of Locomotion: Walk Walk 10 feet (QC): 4 Gait Assistive Device: FWW Balance Sitting Static: Normal Sitting Dynamic: Normal Standing Static: Normal Standing Dynamic: Normal Assessment/Needs Patient will benefit from skilled PT to address functional strength and mobility to improve current LOF to safely return to home at maximum LOF. Rehab Potential: Fair PT Baggage Screener Goals Baggage Screener Goals PT Baggage Screener Goals Time Frame: Sep 28, 2022 Roll Left & Right (QC): 6 Sit to Lying (QC): 6 Lying-Sitting on Side/Bed(QC): 6 Sit to Stand (QC): 6 Chair/Wfb-tb-Htqsb Xfer(QC): 6 Toilet Transfer (QC): 6 Walk 10 feet (QC): 6 Walk 50ft with 2 Turns (QC): 6 Walk 150 ft (QC): 6 PT Plan Problem List Problem List: Activity Tolerance, Functional Strength, Bed Mobility Treatment/Plan Treatment Plan: Continue Plan of Care Treatment Plan: Bed Mobility, Education, Functional Activity Roro, Functional Strength, Gait, Safety, Therapeutic Exercise, Transfers Treatment Duration: Sep 28, 2022 Frequency: 6 times per week Estimated Hrs Per Day: .25 hour per day Patient and/or Family Agrees t: Yes Time Time In: 930 Time Out: 942 DATE: Sep 12, 2022 Total Billed Treatment Time: 12 Total Billed Treatment 1 visit EVMod 12 min VENUS CHAPA PT Sep 12, 2022 10:11
[2022-09-12] MEDS: hydrALAZINE (APESOLINE) 20 MG/ML VIAL IV PRN ×2 (10:19→18:28)
--- NOTE | 2022-09-12 11:05 | Tele-ICU Progress Note ---
Subjective Date Seen by a Provider: Sep 12, 2022 Time Seen by a Provider: 11:05 Subjective/Events-last exam (Tele-ICU Physician , Progress Note ) Service provided via interactive audio and video telecommunications E-CARE system to a patient admitted to ICU bed in [facility]. Available chart/ vitals / labs / Images reviewed Video assessment done using teleICU camera, rest of exam as per RN Discussed with RN Events overnight : FEBRILE hemodynamically stable Respiratory - 3l I/O = pos 1800 Drips: cardizem Pressors- no Consultants: sx Hospital course: (09/05) Admitted an 87y/o with acute cholecystits. On Plavix and Eliquis and will wait 48 hours for OR. 09/07-s/p laparoscopic cholecystectomy , laparoscopic umbilical hernia repair extubated in PACU , In ICU on BIPAP 80% , 15/8 rr 23 550 MV 12 L 09/08 - 5L NC , cardizem gtt 20 , digx1 , 1 L NS given 09/09- cardizem gtt 20 , NG placed , large gastric output , started on LOVENOX full dose 09/11 - persistent fever 101 ( finished zosyn ) - started on flagyl and cefepime , - added gentel IVF for NPO and hyperNa 09/12 - afebrile , added D5W for hyperNA Patient is seen today due to persistent resp insufficency , ICU care A/P Acute cholecystitis -s/p laparoscopic cholecystectomy , laparoscopic umbilical hernia repair 09/07 - Zosyn finished , fever stil 101. 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 - as per cardiology Pulm HTN - RVSP 50 03/2023 - monitor fluid status carefuly Nutrition - NPO 09/09 ( NG on LIS ) Right tight tenderness - as per sx eval , not cellululitis as per description- resolving Lines : periph , (Central Line Necessity Reviewed) Hassan: 09/07 OG: Nutrition: back to NPO 09/09 Analgesia: Anxiety/ delirium VTE Prophylaxis: lovenox full dose 09/09 , SCD Stress Ulcer Prophylaxis: ppi Plans in collaboration with bedside consultants and IM MDs. Discussed with RN to reach out if any questions or concerns A total of 31 minutes of critical care time was devoted to this patient today, required to treat and/or prevent further deterioration of critical care condition ( as above ) I am remotely monitoring this patient from another state. I am unable to do the bedside exam, and history/physical and pertinent information is taken from other notes in the computer and bedside staff. Sepsis Event Evaluation Height, Weight, BMI Height: 5'8.00" Weight: 185lbs. 0.0oz. [id number]; 26.48 BMI Method:Stated Exam Exam Patient acknowledged, consented, and participated in this virtual visit which was conducted using real time audio/video Vital Signs Date Time Temp Pulse Resp B/P (MAP) Pulse Ox O2 Delivery O2 Flow Rate FiO2 09/12/22 10:00 144 13 162/119 (133) 89 Room Air 09/12/22 09:00 141 15 144/100 (115) 93 Room Air 09/12/22 08:00 144 37 162/91 (114) 92 Room Air 09/12/22 08:00 36.8 09/12/22 07:28 99 OxyMask 3.00 09/12/22 07:13 88 09/12/22 07:00 88 25 131/71 (91) 95 OxyMask 3.00 09/12/22 06:00 92 17 122/69 (86) 99 OxyMask 3.00 09/12/22 05:00 87 14 130/85 (100) 98 OxyMask 3.00 09/12/22 04:41 101 124/66 09/12/22 04:00 OxyMask 3.00 95 12/29/22 04:00 36.6 09/12/22 04:00 71 23 123/71 (88) 99 OxyMask 3.00 09/12/22 03:00 86 20 117/81 (93) 98 OxyMask 3.00 09/12/22 02:00 90 17 127/85 (99) 99 OxyMask 3.00 09/12/22 01:00 105 21 126/76 (93) 97 OxyMask 3.00 09/12/22 01:00 101 09/12/22 00:00 69 17 123/66 (85) 99 OxyMask 3.00 09/11/22 23:55 OxyMask 3.00 95 09/11/22 23:47 36.9 09/11/22 23:00 112 23 125/78 (94) 99 OxyMask 3.00 09/11/22 22:21 109 124/66 09/11/22 22:00 112 21 129/79 (96) 99 OxyMask 3.00 09/11/22 21:00 80 20 128/62 (84) 97 OxyMask 3.00 09/11/22 20:00 113 20 128/76 (93) 98 OxyMask 3.00 09/11/22 19:57 37.7 09/11/22 19:54 OxyMask 3.00 95 09/11/22 19:44 98 OxyMask 3.00 09/11/22 19:00 109 09/11/22 19:00 94 21 121/72 (88) 98 OxyMask 3.00 09/11/22 18:00 69 23 124/66 (85) 98 OxyMask 3.00 09/11/22 17:00 141 17 132/85 (101) 99 OxyMask 3.00 09/11/22 16:00 142 21 138/79 (98) 98 OxyMask 3.00 09/11/22 16:00 OxyMask 3.00 95 09/11/22 15:58 142 138/106 09/11/22 15:51 36.6 09/11/22 15:08 100 OxyMask 3.00 09/11/22 15:00 95 14 139/63 (88) 98 OxyMask 3.00 09/11/22 14:00 140 22 140/89 (106) 99 OxyMask 3.00 09/11/22 13:00 99 15 130/65 (86) 99 OxyMask 3.00 09/11/22 12:33 69 09/11/22 12:00 140 19 141/84 (103) 98 OxyMask 3.00 09/11/22 12:00 OxyMask 3.00 97 09/11/22 11:53 36.7 l I & O 09/12/22 07:00 Intake Total 100 ml Output Total 2350 ml Balance -2250 ml Height & Weight Height: 5'8.00" Weight: 185lbs. 0.0oz. [id number]; 26.48 BMI Method:Stated General Appearance: No Apparent Distress, Chronically ill, Obese HEENT: PERRL/EOMI Respiratory: No Respiratory Distress, Accessory Muscle Use, Crackles (B/L mid to base), Wheezing (expiratory B/L) Cardiovascular: Regular Rate, Rhythm, No Murmur Capillary Refill: Less Than 3 Seconds Peripheral Pulses: 2+ Dorsalis Pedis (R), 2+ Left Dors-Pedis (L) Gastrointestinal: abnormal bowel sounds (hypoactive), distended (unchanged from yesterday), other (bandage lower abd) Extremity: No Calf Tenderness, No Pedal Edema Neurologic/Psychiatric: Alert Skin: Normal Color, Warm/Dry, Other Results Lab Laboratory Tests 09/11/22 03:24 09/12/22 04:46 Assessment/Plan Assessment/Plan 1 SAMUEL ALVAREZ MD Sep 12, 2022 11:05
[2022-09-12] MEDS: ENOXAPARIN 100 MG/1 ML (LOVENOX) SYR SC SCH ×2 (12:05→23:14)
--- NOTE | 2022-09-12 12:11 | Progress Note ---
[facility] 09/12/22 1211: Subjective Date Seen by a Provider: Sep 12, 2022 Time Seen by a Provider: 10:55 Subjective/Events-last exam Minh is an 87y WM s/p cholecystectomy and hernia repair with post op ileus, also with afib. NG had output, 600 cc overnight. He is still maintained on cardizem drip with intermittent tachycardia. Labs notable for hypernatremia at 148 and hypokalemia at 3.4. He was started on gentle IV fluids. He did have another fever last night that is now resolved. Pt had a BM this morning. His NG tube came out moving from chair to bed, however given BM will not be replaced. He presents lying comfortably in bed today and feels he is breathing well. He denies pain. Denies CP, nausea, vomiting, AMADO. He does still have a cough producing mucus. Notes he is using his incentive spirometer only intermittently. Review of Systems General: No Chills, No Night Sweats; Appetite HEENT: No Head Aches, No Sinus Congestion Pulmonary: Cough Cardiovascular: No: Chest Pain Gastrointestinal: No: Nausea, Vomiting Objective Exam Last Set of Vital Signs Vital Signs Date Time Temp Pulse Resp B/P (MAP) Pulse Ox O2 Delivery O2 Flow Rate FiO2 09/12/22 11:17 122 150/84 09/12/22 11:00 31 100 Room Air 09/12/22 08:00 36.8 09/12/22 07:28 3.00 09/12/22 04:00 95 Capillary Refill : Less Than 3 SecondsLess Than 3 Seconds I&O Intake and Output 09/12/22 00:00 Intake Total 100 ml Output Total 2180 ml Balance -2080 ml Intake Oral 0 ml IV Total 100 ml Output Urine Total 1180 ml Gastric Drainage Total 900 ml Oral Regurgitation 100 ml General: Alert, Oriented X3, Cooperative, No Acute Distress HEENT: Atraumatic, PERRLA, EOMI Neck: Supple, No JVD Lungs: Other (coarse lung sounds b/l) Heart: Other (Tachycardic) Abdomen: Normal Bowel Sounds, No Tenderness Psych/Mental Status: Mental Status NL, Mood NL Results Lab Laboratory Tests 09/12/22 04:46: White Blood Count 9.9, Red Blood Count 3.97L, Hemoglobin 12.0L, Hematocrit 38L, Mean Corpuscular Volume 95, Mean Corpuscular Hemoglobin 30, Mean Corpuscular Hemoglobin Concent 32, Red Cell Distribution Width 14.6H, Platelet Count 282, Mean Platelet Volume 10.1, Immature Granulocyte % (Auto) 5, Neutrophils (%) (Auto) 72, Lymphocytes (%) (Auto) 11L, Monocytes (%) (Auto) 11, Eosinophils (%) (Auto) 1, Basophils (%) (Auto) 1, Neutrophils # (Auto) 7.1, Lymphocytes # (Auto) 1.1, Monocytes # (Auto) 1.1H, Eosinophils # (Auto) 0.1, Basophils # (Auto) 0.1, Immature Granulocyte # (Auto) 0.5H, Sodium Level 148H, Potassium Level 3.4L, Chloride Level 111H, Carbon Dioxide Level 26, Anion Gap 11, Blood Urea Nitrogen 21H, Creatinine 0.95, Estimat Glomerular Filtration Rate 78, BUN/Creatinine Ratio 22, Glucose Level 176H, Calcium Level 8.2L, Corrected Calcium 9.2, Magnesi um Level 2.6H, Total Bilirubin 0.5, Aspartate Amino Transf (AST/SGOT) 27, Alanine Aminotransferase (ALT/SGPT) 40, Alkaline Phosphatase 74, Total Protein 5.4L, Albumin 2.8L Assessment/Plan Assessment/Plan Assess & Plan/Chief Complaint Assessment: Acute cholecystitischolecystectomy postop day #5 Postop ileus on 09/09/2022- resolved A. fib with RVR maintained on cardizem drip History of chronic atrial fibrillation CHF Hypertension CAD Status post cardiac arrest at home March 2022 Hypokalemia Plan: Cardizem drip Digoxin ICU Cardiology Supportive care Clear diet K replacement Encourage pt to ambulate to chair and use IS Remain in ICU d/t heart rate KAREN JJ DO 09/13/22 0446: Subjective Subjective/Events-last exam Patient doing a little better Daughter at the bedside Heart rate difficult to control Supervisory-Addendum Brief Verification & Attestation Participated in pt care: history, MDM, physical Personally performed: exam, history, MDM, supervision of care Care discussed with: Medical Student Procedures: n/a Results interpretation: Verified all documentation Verification and Attestation of Medical Student E/M Service A medical student performed and documented this service in my presence. I reviewed and verified all information documented by the medical student and made modifications to such information, when appropriate. I personally performed the physical exam and medical decision making. Karen Jj Sep 13, 2022,04:46 ADAN APPIAH Sep 12, 2022 12:11 KAREN JJ DO Sep 13, 2022 04:46
--- NOTE | 2022-09-12 18:32 | Physician Query Clarification ---
Physician Query-General Query to Physician: The medical record reflects the following clinical scenario: The patient, in the setting of History/Risk factors, Abdominal pain, extensive abdominal surgery on the Clinical Findings respiratory rate on admission was 20-25 has frequently been in the high 20s to 30s, Was on oxygen since admission at 2 L required BiPAP after surgery O2 up to 75%, then has been mostly 35 to 50%, documentation of shortness of air with exertion and at rest on the Treatment Question: Do you agree with the impression of acute respiratory failure postoperatively per Dr. Kesha Haskins? 1. Yes; will document Acute postoperative Respiratory Failure in the Progress Notes 2. No; will continue current documentation in the Progress Notes 3. Other; will document explanation of clinical findings 4. Clinically undetermined; no explanation for clinical findings Please clarify and document your clinical opinion in the Progress Notes and Discharge Summary including the definitive and/or presumptive diagnosis, (suspected or probable), related to the above clinical findings. Please include clinical findings supporting your diagnosis. In responding to this query, please exercise your independent professional ju dgment. The purpose of this communication is to more accurately reflect the complexity of your patients condition. The fact that a question is asked does not imply that any particular answer is desired or expected. Thank you for timely response to this clarification. Lu Shoemaker RN, MSN Clinical Cut Off Machine Helper [phone] [email or web address] PHYSICIAN RESPONSE: Based on the clinical findings in the record, please respond to the query above on this document as an addendum. Physician Response: Physician Response yes If you have questions please contact: Supervisor Anodizing: Ext: Thank you for your time and cooperation. Clinical Cut Off Machine Helper/Supervisor Anodizing This is a permanent part of the medical record LU SHOEMAKER Sep 12, 2022 18:32 KAREN JJ DO Sep 12, 2022 20:17
[2022-09-12] MEDS: HYDROcodone/APAP 7.5 MG/325 MG (LORTAB, LORCET PLUS) TABLET PO PRN (19:25)
[2022-09-12] MEDS: morphine INJ 4 MG/ML 1 ML (VIAL/SYRINGE) IV PRN (21:05)
[2022-09-13] MEDS: CEFEPIME INJECTION 1,000 MG in NS (IVPB) 50 ML IV SCH ×5 (00:02→23:19)
[2022-09-13] MEDS: meTOprolol 5 MG/5 ML (LOPRESSOR) VIAL IV SCH ×7 (00:02→23:44)
[2022-09-13] MEDS: D5 1/2 NS 1000 ML IV SOLUTION 1,000 ML IV SCH ×3 (00:08→20:45)
[2022-09-13 00:12] VITALS: BP 113/71
[2022-09-13] MEDS: D5W 1000 ML IV SOLUTION 1,000 ML IV SCH ×2 (01:05→18:07)
[2022-09-13] MEDS: RT-ALBUTEROL SULF 2.5 MG/3 ML PRE-MIX VIAL INH SCH ×4 (03:07→21:39)
[2022-09-13] MEDS: dilTIAZem DRIP PRE-MIX 125 ML IV SCH ×2 (04:10→18:07)
[2022-09-13 05:04] LABS: BASOPHILS # (AUTO) 0.1 10^3/uL (0.0-0.1); BASOPHILS % (AUTO) 1 % (0-10); EOSINOPHILS # (AUTO) 0.1 10^3/uL (0.0-0.3); EOSINOPHILS % (AUTO) 0 % (0-10); HEMATOCRIT 42 % (40-54); HEMOGLOBIN 13.4 g/dL (13.3-17.7); LYMPHOCYTES # (AUTO) 1.4 10^3/uL (1.0-4.0); LYMPHOCYTES % (AUTO) 9 % (12-44); MEAN CORPUSCULAR HEMOGLOBIN 30 pg (25-34); MEAN CORPUSCULAR HGB CONC 32 g/dL (32-36); MEAN CORPUSCULAR VOLUME 94 fL (80-99); MEAN PLATELET VOLUME 10.8 fL (9.0-12.2); MONOCYTES # (AUTO) 1.2 10^3/uL (0.0-1.0); MONOCYTES % (AUTO) 8 % (0-12); NEUTROPHILS # (AUTO) 12.3 10^3/uL (1.8-7.8); NEUTROPHILS % (AUTO) 78 % (42-75); PLATELET COUNT 329 10^3/uL (130-400); WHITE BLOOD COUNT 15.8 10^3/uL (4.3-11.0)
[2022-09-13 05:21] LABS: POTASSIUM 3.2 MMOL/L (3.6-5.0)
[2022-09-13 05:22] LABS: CALCIUM 8.3 MG/DL (8.5-10.1)
[2022-09-13 05:23] LABS: TOTAL PROTEIN 5.6 GM/DL (6.4-8.2)
[2022-09-13 05:25] LABS: BILIRUBIN,TOTAL 0.6 MG/DL (0.1-1.0)
[2022-09-13 05:27] LABS: CREATININE SERUM 0.9 MG/DL (0.60-1.30)
[2022-09-13 05:30] LABS: MAGNESIUM 2.4 MG/DL (1.6-2.4)
[2022-09-13] MEDS: KCL 20 MEQ TAB (K-DUR) PO SCH (05:38)
[2022-09-13] MEDS: MAGNESIUM 1 GM/100 ML IVPB 100 ML IV SCH (05:38)
[2022-09-13] MEDS: POTASSIUM CL 10MEQ/50ML IVPB 50 ML IV SCH ×5 (05:38→08:43)
[2022-09-13] MEDS ORDERED: POTASSIUM CL 10MEQ/50ML IVPB 200 ML IV ONE (05:40)
[2022-09-13 05:43] LABS: BAND NEUTROPHILS 3 %; LYMPHOCYTES % (MANUAL) 12 %; MONOCYTES % (MANUAL) 11 %; MYELOCYTES % 1 %; NEUTROPHILS % (MANUAL) 73 %; RBC MORPH NORMAL
[2022-09-13] MEDS: DIGOXIN 0.25 MG/ML (LANOXIN) 2 ML AMP IV SCH (08:21)
[2022-09-13] MEDS: CLOPIDOGREL 75 MG (PLAVIX) TABLET PO SCH (08:21)
[2022-09-13] MEDS: PANTOPRAZOLE 40 MG (PROTONIX) VIAL IV SCH (08:21)
[2022-09-13] MEDS: metroNIDAZOLE 500MG/100ML IVPB 100 ML IV SCH ×2 (08:21→20:44)
--- NOTE | 2022-09-13 08:35 | Diagnostic Imaging Report ---
INDICATION: Respiratory failure COMPARISON: 09/09/2022 FINDINGS: Single frontal view of the chest demonstrates normal heart size and pulmonary vascularity. The lungs show low inspiratory volumes with minimal bibasilar atelectasis. No large pleural effusion or pneumothorax is seen. The visualized osseous structures show no acute abnormalities. IMPRESSION: 1. Low lung volumes with bibasilar atelectasis Dictated by: Dictated on workstation # [id number]
[2022-09-13] MEDS: SENNOSIDES 8.6 MG (SENOKOT) TAB PO SCH ×2 (08:52→20:44)
[2022-09-13] MEDS: DOCUSATE SODIUM 100 MG (COLACE) CAP PO SCH ×2 (08:52→20:44)
[2022-09-13] MEDS: BISACODYL 10 MG SUPP (DULCOLAX) PR SCH (08:52)
--- NOTE | 2022-09-13 09:15 | Tele-ICU Progress Note ---
Subjective Date Seen by a Provider: Sep 13, 2022 Time Seen by a Provider: 09:15 Subjective/Events-last exam (Tele-ICU Physician , consultation) Available chart/ vitals / labs / Images reviewed H&P is from ER notes Patient's information available about PMH, allergy reviewed in EMR. ROS as per chart and RN report Video assessment done using teleICU camera, rest of exam as per RN Discussed with RN. This patient admitted with acute cholecystitis and underwent laparoscopic cholecystectomy and umbilical hernia repair on 09/07/2022. Currently he is on a nasal cannula. He additionally has a atrial fibrillation with rapid ventricular rate which is being controlled with the diltiazem drip. He is receiving cefepime and Flagyl for antibiotic coverage. He is currently out of bed to chair postoperative respiratory failure improved currently on a nasal cannula. Per DIRECTOR CALL CENTER SALES patient has a coarse breath sounds and wheezing. Apparently he is passing gas and has a mucousy bowel movements. Today we have done a chest x-ray which showed low lung volumes with bilateral basilar subsegmental atelectasis. Today his white count went up. Impression 1. Acute cholecystectomy status post laparoscopic cholecystectomy and umbilical hernia repair on 09/07/2022 Will continue to advance oral diet per the surgeon. Will continue IV antibiotics. 2. Atrial fibrillation with rapid ventricular rate. Continue IV Cardizem drip. Pig Iron Loader following the patient 3. COPD exacerbation. Continue bronchodilator therapy. 4. Stroke prevention and DVT prevention with full dose anticoagulation with Lovenox. 5. Pain management for the general surgeon. Plans of treatment for consultants and bedside IM MDs. Sepsis Event Evaluation Height, Weight, BMI Height: 5'8.00" Weight: 185lbs. 0.0oz. [id number]; 30.65 BMI Method:Stated Exam Exam Patient acknowledged, consented, and participated in this virtual visit which was conducted using real time audio/video Vital Signs Date Time Temp Pulse Resp B/P (MAP) Pulse Ox O2 Delivery O2 Flow Rate FiO2 09/13/22 09:00 124 23 138/92 (107) 93 Nasal Cannula 3.00 09/13/22 08:00 124 21 154/93 (113) 96 Nasal Cannula 3.00 09/13/22 08:00 36.7 09/13/22 07:42 124 156/86 09/13/22 07:00 123 27 149/99 (116) 95 Nasal Cannula 3.00 09/13/22 07:00 123 09/13/22 06:00 121 16 143/90 (107) 96 Nasal Cannula 3.00 09/13/22 05:00 122 16 138/91 (107) 96 Nasal Cannula 3.00 09/13/22 04:00 96 OxyMask 3.00 09/13/22 04:00 37.2 120 20 150/93 (112) 98 Nasal Cannula 3.00 09/13/22 03:07 98 Room Air 3.00 09/13/22 03:00 120 17 150/100 (117) 99 Nasal Cannula 3.00 09/13/22 02:00 122 27 149/103 (118) 98 Nasal Cannula 3.00 09/13/22 01:05 144 118/82 09/13/22 01:00 145 09/13/22 01:00 146 31 148/96 (113) 95 Nasal Cannula 3.00 09/13/22 00:12 107 95 09/13/22 00:00 142 9 127/85 (99) 97 Nasal Cannula 3.00 09/12/22 23:20 Nasal Cannula 3.00 09/12/22 23:10 96 OxyMask 3.00 09/12/22 23:00 37.5 144 14 116/78 (91) 96 OxyMask 3.00 09/12/22 22:24 90 Room Air 3.00 09/12/22 22:00 144 21 120/73 (89) 93 Room Air 09/12/22 21:46 144 118/68 09/12/22 21:00 141 28 130/79 (96) 93 Room Air 09/12/22 20:00 138 23 137/84 (101) 92 Room Air 09/12/22 19:15 92 Room Air 09/12/22 19:00 37.2 124 25 162/93 (116) 92 Room Air 09/12/22 19:00 122 09/12/22 18:28 121 150/112 09/12/22 18:00 121 16 150/112 (125) 92 Room Air 09/12/22 17:00 122 20 173/99 (123) 94 Room Air 09/12/22 16:30 OxyMask 3.00 96 09/12/22 16:00 16 159/104 (122) 94 Room Air 09/12/22 16:00 37.4 09/12/22 15:00 123 24 161/88 (112) 94 Room Air 09/12/22 14:56 99 OxyMask 3.00 09/12/22 14:00 121 24 165/92 (116) 98 Room Air 09/12/22 13:00 96 09/12/22 13:00 112 24 137/75 (95) 100 Room Air 09/12/22 12:05 OxyMask 3.00 96 09/12/22 12:00 122 21 144/73 (96) 100 Room Air 09/12/22 12:00 36.7 09/12/22 11:17 122 150/84 09/12/22 11:00 133 31 130/84 (99) 100 Room Air 09/12/22 10:00 144 13 162/119 (133) 89 Room Air I & O 09/13/22 07:00 Intake Total 2205 ml Output Total 1515 ml Balance 690 ml Height & Weight Height: 5'8.00" Weight: 185lbs. 0.0oz. 83.276550bh; 30.65 BMI Method:Stated General Appearance: No Apparent Distress, Chronically ill, Obese HEENT: PERRL/EOMI Respiratory: No Respiratory Distress, Accessory Muscle Use, Crackles (B/L mid to base), Wheezing (expiratory B/L) Cardiovascular: No Murmur, Irregularly Irregular, Tachycardia Capillary Refill: Less Than 3 Seconds Peripheral Pulses: 2+ Dorsalis Pedis (R), 2+ Left Dors-Pedis (L) Gastrointestinal: abnormal bowel sounds (hypoactive), distended (about same as yesterday) Extremity: No Calf Tenderness, No Pedal Edema Neurologic/Psychiatric: Alert Skin: Normal Color, Warm/Dry Results Lab Laboratory Tests 09/12/22 04:46 09/13/22 04:25 Assessment/Plan Assessment/Plan as above Critical Care: Critically Ill Patient Time spent with patient (mins): 15 LYNNE MIN MD Sep 13, 2022 09:15
[2022-09-13] MEDS: ENOXAPARIN 100 MG/1 ML (LOVENOX) SYR SC SCH ×2 (10:56→23:18)
--- NOTE | 2022-09-13 11:00 | Cardiology Progress Note ---
Subjective Date Seen by Provider: Sep 13, 2022 Time Seen by Provider: 10:58 Subjective/Events-last exam Patient was seen at bedside, feeling better, NG tube is out Had a vomiting today, had a bowel movement Review of Systems General: No Chills, No Night Sweats; Fatigue, Malaise; No Appetite, No Other HEENT: No Head Aches, No Visual Changes, No Eye Pain, No Ear Pain, No Dysphasia, No Sinus Congestion, No Post Nasal Drip, No Sore Throat, No Other Pulmonary: Dyspnea; No Cough, No Pleuritic Chest Pain, No Other Cardiovascular: No: Chest Pain, Palpitations, Orthopnea, Paroxysmal Noc. Dyspnea, Edema, Lt Headedness, Other Objective-Cardiology Exam Last Set of Vital Signs Vital Signs 09/12/22 09/13/22 09/13/22 16:30 08:00 10:00 Temp 36.7 Pulse 124 Resp 27 B/P (MAP) 146/96 (113) Pulse Ox 98 O2 Delivery Nasal Cannula O2 Flow Rate 3.00 FiO2 96 I&O Intake and Output 09/13/22 00:00 Intake Total 670 ml Output Total 2225 ml Balance -1555 ml Intake Oral 295 ml IV Total 375 ml Output Urine Total 1425 ml Gastric Drainage Total 600 ml Oral Regurgitation 200 ml # Bowel Movements 2 General: Alert, Oriented X3, Cooperative, No Acute Distress HEENT: Atraumatic, PERRLA, EOMI Neck: Supple, No JVD Lungs: Other (coarse lung sounds b/l) Heart: Other (Tachycardic) Abdomen: Normal Bowel Sounds, No Tenderness, Other (Distended abdomen) Extremities: No Clubbing, No Cyanosis, No Edema, Normal Pulses Skin: No Rashes, No Significant Lesion Neuro: Normal Speech, Strength at 5/5 X4 Ext, Normal Tone Psych/Mental Status: Mental Status NL, Mood NL Results Lab Laboratory Tests 09/13/22 04:25 A/P-Cardiology Admission Diagnosis Acute cholecystitis Coronary artery disease Permanent atrial fibrillation Hypertension Assessment/Plan Status post acute respiratory failure postoperatively on September 07, 2022 required BiPAP. Currently on nasal cannula, feeling better. Acute cholecystitis, status postcholecystectomy done on September 07, 2022. Postop ileus. Slow improvement Atrial fibrillation/atrial flutter, currently tachycardic. History of permanent atrial fibrillation. Cannot tolerate oral medication due to postoperative ileus. I will continue with Cardizem drip, Lopressor IV, Digoxin IV and Lovenox, I am adding oral Cardizem, metoprolol and digoxin and evaluate tolerance and response We will try to wean him off the drip Currently on Lovenox, Marquise is on hold Status post acute congestive heart failure with fluid overload postoperatively, history of congestive heart failure with chronic compensated left ventricular diastolic dysfunction 2D echo was done in March 2022 with normal left ventricular systolic function ejection fraction 60 to 65% with dilated left atrium and pulmonary hypertension with PA pressure 40 to 45 mmHg Coronary artery disease, history of non-ST elevation myocardial infarction in March 2022 - Cardiac cath of 07-14-18: 90% [id number] vessel stenosis of the left anterior descending artery within a small caliber vessel to which balloon angioplasty was carried out which reduced the stenosis to less than 50%. The rest of the coronary vessels have moderate diffuse disease. There is a patent stent in the right coronary with a 50% in-stent restenosis (unchanged compared to previous study). Elevated left ventricular end-diastolic pressure. - MPI of 12/07/19: no ischemia or infarction, LVEF 48% (appeared to be higher, subjectively) - Card cath on 03/25/22: 90-85 prox and mid LAD stenosis treated with PTCA and then 2.25 x 23 mm GABRIELA, distal LAD, distal LCX, and prox RI have severe disease that is not amenable to intervention, RCA is dominant with patent prox stent with up to 50 instent and distal RCA with up to 50 stenoses, LVEDP 22 mmHg Has been maintained on aspirin and Plavix last taken on September 05, 2022. History of syncope and collapse reported pulseless per family on March 24, 2022. Had chest compression Loop monitor implanted on March 26, 2022. History of rib fractures after chest compression Hypertension, continue to monitor blood pressure Hyperlipidemia, maintained on statin. Currently on hold History of umbilical hernia. Questionable underlying sleep apnea Lumbar spondylosis and spinal stenosis, followed by Dr. Negrito ERICKSON,IAN Irene MD Sep 13, 2022 11:00
[2022-09-13] MEDS: DIGOXIN 0.125 MG (LANOXIN) TAB PO SCH (11:36)
[2022-09-13] MEDS: meTOprolol TARTRATE 25 MG (LOPRESSOR) TABLET PO SCH ×2 (11:36→20:44)
--- NOTE | 2022-09-13 12:48 | Progress Note - Surgery ---
Subjective Time Seen by a Provider: 11:27 Subjective/Events-last exam Pt seen and examined, he is laying in bed and appears comfortable. Nurse states he ate a little bit of jello and then had a large emesis. He is still having small BMs and some flatus. Review of Systems General: Fatigue, Malaise Pulmonary: Dyspnea; No Cough Cardiovascular: Palpitations; No: Chest Pain Gastrointestinal: Nausea, Vomiting, Abdominal Pain Objective Exam Vital Signs Date Time Temp Pulse Resp B/P (MAP) Pulse Ox O2 Delivery O2 Flow Rate FiO2 09/13/22 12:00 130 23 155/100 (118) 98 Nasal Cannula 3.00 09/13/22 11:47 37.2 09/13/22 11:00 124 20 137/97 (110) 97 Nasal Cannula 3.00 09/13/22 10:00 124 27 146/96 (113) 98 Nasal Cannula 3.00 09/13/22 09:45 93 Nasal Cannula 3.00 09/13/22 09:00 124 23 138/92 (107) 93 Nasal Cannula 3.00 09/13/22 08:00 124 21 154/93 (113) 96 Nasal Cannula 3.00 09/13/22 08:00 36.7 09/13/22 07:48 93 Nasal Cannula 3.00 09/13/22 07:42 124 156/86 09/13/22 07:00 123 27 149/99 (116) 95 Nasal Cannula 3.00 09/13/22 07:00 123 09/13/22 06:00 121 16 143/90 (107) 96 Nasal Cannula 3.00 09/13/22 05:00 122 16 138/91 (107) 96 Nasal Cannula 3.00 09/13/22 04:00 96 OxyMask 3.00 09/13/22 04:00 37.2 120 20 150/93 (112) 98 Nasal Cannula 3.00 09/13/22 03:07 98 Room Air 3.00 09/13/22 03:00 120 17 150/100 (117) 99 Nasal Cannula 3.00 09/13/22 02:00 122 27 149/103 (118) 98 Nasal Cannula 3.00 09/13/22 01:05 144 118/82 09/13/22 01:00 145 09/13/22 01:00 146 31 148/96 (113) 95 Nasal Cannula 3.00 09/13/22 00:12 107 95 09/13/22 00:00 142 9 127/85 (99) 97 Nasal Cannula 3.00 09/12/22 23:20 Nasal Cannula 3.00 09/12/22 23:10 96 OxyMask 3.00 09/12/22 23:00 37.5 144 14 116/78 (91) 96 OxyMask 3.00 09/12/22 22:24 90 Room Air 3.00 09/12/22 22:00 144 21 120/73 (89) 93 Room Air 09/12/22 21:46 144 118/68 09/12/22 21:00 141 28 130/79 (96) 93 Room Air 09/12/22 20:00 138 23 137/84 (101) 92 Room Air 09/12/22 19:15 92 Room Air 09/12/22 19:00 37.2 124 25 162/93 (116) 92 Room Air 09/12/22 19:00 122 09/12/22 18:28 121 150/112 09/12/22 18:00 121 16 150/112 (125) 92 Room Air 09/12/22 17:00 122 20 173/99 (123) 94 Room Air 09/12/22 16:30 OxyMask 3.00 96 09/12/22 16:00 16 159/104 (122) 94 Room Air 09/12/22 16:00 37.4 09/12/22 15:00 123 24 161/88 (112) 94 Room Air 09/12/22 14:56 99 OxyMask 3.00 09/12/22 14:00 121 24 165/92 (116) 98 Room Air 09/12/22 13:00 96 09/12/22 13:00 112 24 137/75 (95) 100 Room Air I & O 09/13/22 07:00 Intake Total 2205 ml Output Total 1515 ml Balance 690 ml Capillary Refill : Less Than 3 SecondsLess Than 3 Seconds General Appearance: Chronically ill, Obese HEENT: PERRL/EOMI Respiratory: No Respiratory Distress, Accessory Muscle Use, Crackles (B/L mid to base), Wheezing (expiratory B/L) Cardiovascular: No Murmur, Irregularly Irregular, Tachycardia Peripheral Pulses: 2+ Dorsalis Pedis (R), 2+ Left Dors-Pedis (L) Gastrointestinal: abnormal bowel sounds (hypoactive), distended (about same as yesterday), other (incisions c/d/i) Extremity: No Calf Tenderness, No Pedal Edema Neurologic/Psychiatric: Alert Results Lab Laboratory Tests 09/13/22 04:25: White Blood Count 15.8H, Red Blood Count 4.44, Hemoglobin 13.4, Hematocrit 42, Mean Corpuscular Volume 94, Mean Corpuscular Hemoglobin 30, Mean Corpuscular Hemoglobin Concent 32, Red Cell Distribution Width 14.6H, Platelet Count 329, Mean Platelet Volume 10.8, Immature Granulocyte % (Auto) 4, Neutrophils (%) (Auto) 78H, Lymphocytes (%) (Auto) 9L, Monocytes (%) (Auto) 8, Eosinophils (%) (Auto) 0, Basophils (%) (Auto) 1, Neutrophils # (Auto) 12.3H, Lymphocytes # (Auto) 1.4, Monocytes # (Auto) 1.2H, Eosinophils # (Auto) 0.1, Basophils # (Auto) 0.1, Immature Granulocyte # (Auto) 0.7H, Neutrophils % (Manual) 73, Lymphocytes % (Manual) 12, Monocytes % (Manual) 11, Myelocytes % 1, Band Neutrophils 3, Blood Morphology Comment NORMAL, Sodium Level 146H, Potassium Level 3.2L, Chloride Level 110H, Carbon Dioxide Level 25, Anion Gap 11, Blood Urea Nitrogen 18, Creatinine 0.90, Estimat Glomerular Filtration Rate 84, BUN/Creatinine Ratio 20, Glucose Level 147H, Calcium Level 8.3L, Corrected Calcium 9.1, Magnesium Level 2.4, Total Bilirubin 0.6, Aspartate Amino Transf (AST/SGOT) 41H, Alanine Aminotransferase (ALT/SGPT) 42, Alkaline Phosphatase 73, Total Protein 5.6L, Albumin 3.0L Assessment/Plan Assessment/Plan Assessment/Plan Anemia - stable Malnourished Nausea and Vomiting Post op illeus with NGT placement S/P laparoscopic cholecystectomy and umbilical hernia repair with mesh Afib on RVR h/o CHF Will leave NGT out since he had a BM and some flatus. Continue ambulation with PT. Continue IVF, and start sips of clears, pain medications prn, IV abx, anti- emetics prn, and IS use. Would hold off on TPN for now, it won't help unless we think he will need it for greater than 2 weeks and will initially cause some immunosupression. Would continue to slowly increase diet and encourage ambulation. Pt needs to do things to help with return of bowel function. Moving around will help and hopefully dulcolax suppositories will help. PRATIMA ADAME DO Sep 13, 2022 12:48
--- NOTE | 2022-09-13 13:15 | Progress Note ---
[facility]15: Subjective Date Seen by a Provider: Sep 13, 2022 Time Seen by a Provider: 10:50 Subjective/Events-last exam CU6: Minh is an 87y WM s/p cholecystectomy and hernia repair with post op ileus, also with afib. Last night he experienced HR in 140s for [address] Haskins ordered Cardizem bolus and increased Cardizem drip. He was moved to clear liquid diet however he experienced emesis after eating Jello so he has not eaten since that episode.Today he reports some abdominal pain on the right side and had another loose BM this am. He also notes intermittently feeling poorly though he does not have specific symptoms. His WBC incrased from 9.9 yesterday to 15.[address] Thrasher ordered CXR this am which revealed bibasilar atelectasis. He is also hypokalemic at 3.2. He remains on Cardizem drip. He notes he is using the incentive spirometer. Review of Systems General: No Chills, No Night Sweats HEENT: No Head Aches, No Sinus Congestion Pulmonary: No Dyspnea; Cough Cardiovascular: No: Chest Pain, Palpitations Gastrointestinal: Vomiting, Abdominal Pain (right sided) Objective Exam Last Set of Vital Signs Vital Signs Date Time Temp Pulse Resp B/P (MAP) Pulse Ox O2 Delivery O2 Flow Rate FiO2 09/13/22 13:00 126 09/13/22 12:00 23 155/100 (118) 98 Nasal Cannula 3.00 09/13/22 11:47 37.2 09/12/22 16:30 96 Capillary Refill : Less Than 3 SecondsLess Than 3 Seconds I&O Intake and Output 09/13/22 00:00 Intake Total 670 ml Output Total 2225 ml Balance -1555 ml Intake Oral 295 ml IV Total 375 ml Output Urine Total 1425 ml Gastric Drainage Total 600 ml Oral Regurgitation 200 ml # Bowel Movements 2 General: Alert, Oriented X3, Cooperative, No Acute Distress HEENT: Atraumatic, PERRLA, EOMI, Mucous Memb Moist/[place] Lungs: Other (coarse lung sounds b/l) Heart: Normal S1, Normal S2, Other (Tachycardic) Abdomen: Normal Bowel Sounds, Other (distended, RUQ/RLQ tenderness, incisions c/d/i) Extremities: No Edema, Normal Pulses Psych/Mental Status: Mental Status NL, Other (Depressed affect) Results Lab Laboratory Tests 09/13/22 04:25: White Blood Count 15.8H, Red Blood Count 4.44, Hemoglobin 13.4, Hematocrit 42, Mean Corpuscular Volume 94, Mean Corpuscular Hemoglobin 30, Mean Corpuscular Hemoglobin Concent 32, Red Cell Distribution Width 14.6H, Platelet Count 329, Mean Platelet Volume 10.8, Immature Granulocyte % (Auto) 4, Neutrophils (%) (Auto) 78H, Lymphocytes (%) (Auto) 9L, Monocytes (%) (Auto) 8, Eosinophils (%) (Auto) 0, Basophils (%) (Auto) 1, Neutrophils # (Auto) 12.3H, Lymphocytes # (Auto) 1.4, Monocytes # (Auto) 1.2H, Eosinophils # (Auto) 0.1, Basophils # (Auto) 0.1, Immature Granulocyte # (Auto) 0.7H, Neutrophils % (Manual) 73, Lymphocytes % (Manual) 12, Monocytes % (Manual) 11, Myelocytes % 1, Band Neut rophils 3, Blood Morphology Comment NORMAL, Sodium Level 146H, Potassium Level 3.2L, Chloride Level 110H, Carbon Dioxide Level 25, Anion Gap 11, Blood Urea Nitrogen 18, Creatinine 0.90, Estimat Glomerular Filtration Rate 84, BUN/Creatinine Ratio 20, Glucose Level 147H, Calcium Level 8.3L, Corrected Calcium 9.1, Magnesium Level 2.4, Total Bilirubin 0.6, Aspartate Amino Transf (AST/SGOT) 41H, Alanine Aminotransferase (ALT/SGPT) 42, Alkaline Phosphatase 73, Total Protein 5.6L, Albumin 3.0L Assessment/Plan Assessment/Plan Assess & Plan/Chief Complaint Assessment: Acute cholecystitischolecystectomy postop day #6 Postop ileus on 09/09/2022- resolved A. fib with RVR maintained on cardizem drip History of chronic atrial fibrillation CHF Hypertension CAD Status post cardiac arrest at home March 2022 Hypokalemia Leukocytosis Plan: Cardizem drip Digoxin ICU Cardiology Supportive care Clear diet as tolerated K replacement Encourage pt to ambulate to chair and use IS Remain in ICU d/t heart rate MARILYNN JJ DO 09/13/222128: Supervisory-Addendum Brief Verification & Attestation Participated in pt care: history, MDM, physical Personally performed: exam, history, MDM, supervision of care Care discussed with: Medical Student Procedures: n/a Results interpretation: Verified all documentation Verification and Attestation of Medical Student E/M Service A medical student performed and documented this service in my presence. I reviewed and verified all information documented by the medical student and made modifications to such information, when appropriate. I personally performed the physical exam and medical decision making. Marilynn Jj, Sep 13, 2022,21:29 ADAN APPIAH Sep 13, 2022 13:15 MARILYNN JJ DO Sep 13, 2022 21:29
--- NOTE | 2022-09-13 13:39 | Physical Therapy Daily Note ---
PT Daily Note-Current Subjective Pt found laying in bed /c nurse present upon entry. Agreed to PT. States that he is feeling okay today. Reports that he needs to use bedside commode. Pt left on bedside commode /c nurse present. No report of increased pain. Pain Section J - Health Conditions 1. Rarely or not at all 2. Occasionally 3. Frequently 4. Almost constantly 8. Unable to answer Pain Effect on Sleep: 1 Pain Interference with Therapy: 1 Pain Interference w/Day-to-Day: 1 Mental Status Patient Orientation: Normal For Age Attachments: Oxygen, Hassan Catheter, IV Transfers SCALE: Activities may be completed with or without assistive devices. 4-Tqeguhwqlu-mdmwgig completes the activity by him/herself with no assistance from a helper. 5-Set-up or Clean-up Assistance-helper sets up or cleans up; patient completes activity. [place] assists only prior to or following the activity. 4-Supervision or Touching Assistance-helper provides verbal cues and/or touching/steadying and/or contact guard assistance as patient completes activity. Assistance may be provided throughout the activity or intermittently. 3-Partial/Moderate Assistance-helper does LESS THAN HALF the effort. [place] lifts, holds or supports trunk or limbs, but provides less than half the effort. 2-Substantial/Maximal Assistance-helper does MORE THAN HALF the effort. [place] lifts or holds trunk or limbs and provides more than half the effort. 9-Mqvkmuwyx-zchlmz does ALL the effort. Patient does none of the effort to complete the activity. Or, the assistance of 2 or more helpers is required for the patient to complete the activity. If activity was not attempted, code reason: 7-Patient Refused. 9-Not Applicable-not attempted and the patient did not perform the activity before the current illness, exacerbation or injury. 10-Not Attempted due to Environmental Limitations-(lack of equipment, weather restraints, etc.). 88-Not Attempted due to Medical Conditions or Safety Concerns. Lying to Sitting/Side of Bed(Q: 3 Sit to Stand (QC): 4 Toilet Transfer (QC): 4 Pt CGA /c sit<->stand and toilet trfs. MOD assist /c lying->sitting. Weight Bearing Right Lower Extremity: Right Weight Bearing/Tolerated Left Lower Extremity: Left Weight Bearing/Tolerated Gait Training Does the Patient Walk?: No and Walking Goal IS indicated Wheelchair Training Does the Pt Use a Wheelchair?: No Assessment Current Status: Fair Progress Pt tolerated Tx well /c no report of increased pain. Pt able to trf to toilet /c CGA. Continue to progress pt as tolerated to increase strength, endurance, and functional ability. PT Respite Worker Goals Mcfp Goals PT Mcfp Goals Time Frame: Sep 28, 2022 Roll Left & Right (QC): 6 Sit to Lying (QC): 6 Lying-Sitting on Side/Bed(QC): 6 Sit to Stand (QC): 6 Chair/Pqb-ni-Hjdzr Xfer(QC): 6 Toilet Transfer (QC): 6 Walk 10 feet (QC): 6 Walk 50ft with 2 Turns (QC): 6 Walk 150 ft (QC): 6 PT Plan Treatment/Plan Treatment Plan: Continue Plan of Care Treatment Plan: Bed Mobility, Education, Functional Activity Roro, Functional Strength, Gait, Safety, Therapeutic Exercise, Transfers Treatment Duration: Sep 28, 2022 Frequency: 6 times per week Estimated Hrs Per Day: .25 hour per day Patient and/or Family Agrees t: Yes Time Time In: 1135 Time Out: 1148 DATE: Sep 13, 2022 Total Billed Treatment Time: 13 Total Billed Treatment 1 visit FA MORENO Pitts PTA Sep 13, 2022 13:38
--- NOTE | 2022-09-13 15:48 | Diagnostic Imaging Report ---
Indication: PICC line placement Portable chest 3:44 PM Left upper symmetric PICC line tip projects over the SVC. There is a loop recorder projecting over left lower chest. Heart size and pulmonary vascularity are normal. Lungs are clear. There are no effusions or pneumothoraces. IMPRESSION: No acute abnormalities in the chest Dictated by: Dictated on workstation # [id number]
[2022-09-13] MEDS ORDERED: FUROSEMIDE 40 MG/4 ML INJ (LASIX) IVP NR (16:30)
[2022-09-13] MEDS ORDERED: methylPREDNISolone 125 MG (Solu-MEDROL) VIAL IVP NR (16:30)
--- NOTE | 2022-09-13 16:34 | Diagnostic Imaging Report ---
INDICATION: Abdominal distention. COMPARISON: 09/13/2022. FINDINGS: Two frontal radiographic views of the abdomen were obtained and show multiple abnormally prominent mildly distended air-filled loops of small bowel. At its widest, small bowel measures 3.5 cm in diameter. There is no large collection of free intraperitoneal air, although evaluation is degraded by patient body habitus and supine positioning. No unexpected extraosseous calcifications or radiopaque foreign bodies are seen. IMPRESSION: 1. Mild abnormal gaseous distention of the small bowel suspicious for potential obstruction. Follow-up is advised. Dictated by: Dictated on workstation # [id number]
[2022-09-14] MEDS: RT-ALBUTEROL SULF 2.5 MG/3 ML PRE-MIX VIAL INH SCH ×4 (02:47→19:32)
[2022-09-14] MEDS: meTOprolol 5 MG/5 ML (LOPRESSOR) VIAL IV SCH ×8 (03:39→23:22)
[2022-09-14 03:40] LABS: BASOPHILS # (AUTO) 0.1 10^3/uL (0.0-0.1); BASOPHILS % (AUTO) 0 % (0-10); EOSINOPHILS % (AUTO) 0 % (0-10); HEMATOCRIT 39 % (40-54); HEMOGLOBIN 12.3 g/dL (13.3-17.7); LYMPHOCYTES # (AUTO) 0.9 10^3/uL (1.0-4.0); LYMPHOCYTES % (AUTO) 4 % (12-44); MEAN CORPUSCULAR HEMOGLOBIN 30 pg (25-34); MEAN CORPUSCULAR HGB CONC 32 g/dL (32-36); MEAN CORPUSCULAR VOLUME 93 fL (80-99); MEAN PLATELET VOLUME 10.6 fL (9.0-12.2); MONOCYTES # (AUTO) 0.3 10^3/uL (0.0-1.0); MONOCYTES % (AUTO) 1 % (0-12); NEUTROPHILS # (AUTO) 22.6 10^3/uL (1.8-7.8); NEUTROPHILS % (AUTO) 93 % (42-75); PLATELET COUNT 300 10^3/uL (130-400); WHITE BLOOD COUNT 24.2 10^3/uL (4.3-11.0)
[2022-09-14 03:55] LABS: PROTHROMBIN TIME PATIENT 14.1 SEC (12.2-14.7)
[2022-09-14 04:02] LABS: ALBUMIN 2.9 GM/DL (3.2-4.5); POTASSIUM 3.4 MMOL/L (3.6-5.0)
[2022-09-14 04:04] LABS: CALCIUM 8.1 MG/DL (8.5-10.1)
[2022-09-14 04:05] LABS: TOTAL PROTEIN 5.3 GM/DL (6.4-8.2)
[2022-09-14 04:07] LABS: BILIRUBIN,TOTAL 0.6 MG/DL (0.1-1.0)
[2022-09-14 04:08] LABS: PHOSPHORUS 2.6 MG/DL (2.3-4.7)
[2022-09-14 04:09] LABS: CREATININE SERUM 0.88 MG/DL (0.60-1.30)
[2022-09-14 04:12] LABS: MAGNESIUM 2.4 MG/DL (1.6-2.4)
[2022-09-14] MEDS: dilTIAZem DRIP PRE-MIX 125 ML IV SCH (04:16)
[2022-09-14] MEDS: CEFEPIME INJECTION 1,000 MG in NS (IVPB) 50 ML IV SCH ×4 (04:38→23:21)
[2022-09-14] MEDS: POTASSIUM CL 10MEQ/50ML IVPB 50 ML IV SCH ×3 (04:39→05:35)
[2022-09-14] MEDS: KCL 20 MEQ TAB (K-DUR) PO SCH (04:40)
[2022-09-14] MEDS: MAGNESIUM 1 GM/100 ML IVPB 100 ML IV SCH (04:40)
--- NOTE | 2022-09-14 05:03 | Progress Note ---
Subjective Date Seen by a Provider: Sep 14, 2022 Time Seen by a Provider: 05:00 Subjective/Events-last exam Patient had a rough night Ativan seemed to make him very confused Elevated white count noted Cefepime and Flagyl maintained Atrial fibrillation continues to be not controlled rate Very complicated problems given advanced age and comorbidities Review of Systems Pulmonary: Dyspnea Objective Exam Last Set of Vital Signs Vital Signs Date Time Temp Pulse Resp B/P (MAP) Pulse Ox O2 Delivery O2 Flow Rate FiO2 09/14/22 04:13 120 136/83 09/14/22 04:13 Nasal Cannula 2.00 09/14/22 04:00 20 96 09/14/22 03:40 36.5 09/12/22 16:30 96 Capillary Refill : Less Than 3 SecondsLess Than 3 Seconds I&O Intake and Output 09/14/22 00:00 Intake Total 2595 ml Output Total 2565 ml Balance 30 ml Intake Oral 340 ml IV Total 2225 ml Other 30 ml Output Urine Total 1565 ml Gastric Drainage Total 1000 ml # Bowel Movements 1 # [place] 75 General: Alert, Other (Subtle confusion) Lungs: Other (Crackles) Abdomen: Other (Decreased bowel sounds) Results Lab Laboratory Tests 09/14/22 03:25: White Blood Count 24.2H, Red Blood Count 4.13L, Hemoglobin 12.3L, Hematocrit 39L , Mean Corpuscular Volume 93, Mean Corpuscular Hemoglobin 30, Mean Corpuscular Hemoglobin Concent 32, Red Cell Distribution Width 14.6H, Platelet Count 300, Me an Platelet Volume 10.6, Immature Granulocyte % (Auto) 2, Neutrophils (%) (Auto) 93H, Lymphocytes (%) (Auto) 4L, Monocytes (%) (Auto) 1, Eosinophils (%) (Auto) 0, Basophils (%) (Auto) 0, Neutrophils # (Auto) 22.6H, Lymphocytes # (Auto) 0.9L , Monocytes # (Auto) 0.3, Eosinophils # (Auto) 0.0, Basophils # (Auto) 0.1, Immature Granulocyte # (Auto) 0.4H, Prothrombin Time 14.1, INR Comment 1.0, Sodium Level 140, Potassium Level 3.4L, Chloride Level 106, Carbon Dioxide Level 25, Anion Gap 9, Blood Urea Nitrogen 17, Creatinine 0.88, Estimat Glomerular Filtration Rate 84, BUN/Creatinine Ratio 19, Glucose Level 183H, Calcium Level 8.1L, Corrected Calcium 9.0, Phosphorus Level 2.6, Magnesium Level 2.4, Total Bilirubin 0.6, Aspartate Amino Transf (AST/SGOT) 25, Alanine Aminotransferase (ALT/SGPT) 33, Alkaline Phosphatase 73, Total Protein 5.3L, Albumin 2.9L, Triglycerides Level 181H Assessment/Plan Assessment/Plan Assess & Plan/Chief Complaint Continue supportive care Very complicated case Assessment: Acute cholecystitischolecystectomy postop day #7 Postop ileus on 09/09/2022-resolved then recurred A. fib with RVR maintained on cardizem drip History of chronic atrial fibrillation CHF Hypertension CAD Status post cardiac arrest at home March 2022 Hypokalemia Leukocytosis Plan: Cardizem drip Digoxin ICU Cardiology Supportive care Clear diet as tolerated K replacement Encourage pt to ambulate to chair and use IS Remain in ICU d/t heart rate KAREN JJ DO Sep 14, 2022 05:03
[2022-09-14] MEDS: D5 1/2 NS 1000 ML IV SOLUTION 1,000 ML IV SCH (06:53)
[2022-09-14] MEDS: meTOprolol TARTRATE 25 MG (LOPRESSOR) TABLET PO SCH ×2 (08:19→20:36)
[2022-09-14] MEDS: DIGOXIN 0.125 MG (LANOXIN) TAB PO SCH (08:19)
[2022-09-14] MEDS: metroNIDAZOLE 500MG/100ML IVPB 100 ML IV SCH ×2 (08:19→20:36)
[2022-09-14] MEDS: CLOPIDOGREL 75 MG (PLAVIX) TABLET PO SCH (08:20)
--- NOTE | 2022-09-14 08:21 | Tele-ICU Progress Note ---
Subjective Date Seen by a Provider: Sep 14, 2022 Subjective/Events-last exam (Tele-ICU Physician , consultation) Available chart/ vitals / labs / Images reviewed H&P is from ER notes Patient's information available about PMH, allergy reviewed in EMR. ROS as per chart and RN report Video assessment done using teleICU camera, rest of exam as per RN Discussed with RN. This patient admitted with acute cholecystitis and underwent laparoscopic cholecystectomy and umbilical hernia repair on 09/07/2022. Currently he is on a nasal cannula. He additionally has a atrial fibrillation with rapid ventricular rate which is being controlled with the diltiazem drip. He is receiving cefepime and Flagyl for antibiotic coverage. He is currently out of bed to chair postoperative respiratory failure improved currently on a nasal cannula. Per SHEET FINISHER patient has a coarse breath sounds and wheezing. Apparently he is passing gas and has a mucousy bowel movements. Today we have done a chest x-ray which showed low lung volumes with bilateral basilar subsegmental atelectasis. Today his white count went up. Impression 1. Acute cholecystectomy status post laparoscopic cholecystectomy and umbilical hernia repair on 09/07/2022 kub showing SBO vs ileus. s/p ngt insertion. diet on hold. reglan started. 2. Atrial fibrillation with rapid ventricular rate. Continue IV Cardizem drip. [place] following the patient 3. COPD exacerbation. Continue bronchodilator therapy. 4. Stroke prevention and DVT prevention with full dose anticoagulation with Lovenox. 5. Pain management per the general surgeon. Plans of treatment for consultants and bedside IM MDs. Sepsis Event Evaluation Height, Weight, BMI Height: 5'8.00" Weight: 185lbs. 0.0oz. [id number]; 29.18 BMI Method:Stated Exam Exam Patient acknowledged, consented, and participated in this virtual visit which was conducted using real time audio/video Vital Signs Date Time Temp Pulse Resp B/P (MAP) Pulse Ox O2 Delivery O2 Flow Rate FiO2 09/14/22 08:03 36.8 09/14/22 07:00 123 09/14/22 06:00 88 21 133/79 (97) 89 Nasal Cannula 2.00 09/14/22 05:00 121 19 149/82 (104) 94 Nasal Cannula 2.00 09/14/22 04:13 120 136/83 09/14/22 04:13 Nasal Cannula 2.00 09/14/22 04:00 120 20 136/83 (100) 96 Nasal Cannula 4.00 09/14/22 03:40 96 Nasal Cannula 4.00 09/14/22 03:40 36.5 120 20 150/79 (102) 96 Nasal Cannula 4.00 09/14/22 03:00 118 18 144/80 (101) 94 Nasal Cannula 4.00 09/14/22 02:47 98 Nasal Cannula 5.00 09/14/22 02:35 120 19 90 Nasal Cannula 4.00 09/14/22 02:00 120 19 151/85 (107) 95 Nasal Cannula 2.00 09/14/22 01:00 121 40 136/85 (102) 95 Nasal Cannula 2.00 09/14/22 01:00 121 09/14/22 00:00 121 22 142/86 (104) 94 Nasal Cannula 2.00 09/13/22 23:15 36.5 122 17 136/89 (105) 96 Nasal Cannula 2.00 09/13/22 23:15 96 Nasal Cannula 2.00 09/13/22 22:00 121 18 140/93 (109) 95 Nasal Cannula 2.00 09/13/22 21:58 122 142/97 09/13/22 21:39 98 Room Air 2.00 09/13/22 21:15 122 22 148/92 (110) 97 Nasal Cannula 2.00 09/13/22 20:00 123 17 138/95 (109) 95 Nasal Cannula 2.00 09/13/22 19:55 96 Nasal Cannula 2.00 09/13/22 19:45 122 23 142/93 (109) 96 Nasal Cannula 2.00 09/13/22 19:02 124 09/13/22 19:00 37.1 123 19 142/107 (119) 96 Nasal Cannula 2.00 09/13/22 18:07 128 118/90 09/13/22 18:00 126 142/81 (101) 95 Nasal Cannula 2.00 09/13/22 17:00 128 118/90 (99) 99 Nasal Cannula 2.00 09/13/22 16:15 92 Nasal Cannula 2.00 09/13/22 16:00 128 178/97 (124) 96 Nasal Cannula 2.00 09/13/22 15:51 Nasal Cannula 2.00 09/13/22 15:42 96 Nasal Cannula 3.00 09/13/22 15:00 123 136/92 (107) 97 Nasal Cannula 3.00 09/13/22 14:33 125 131/96 09/13/22 14:00 124 30 173/97 (122) 96 Nasal Cannula 3.00 09/13/22 13:00 125 151/88 (109) 99 Nasal Cannula 3.00 09/13/22 13:00 126 09/13/22 12:16 96 Nasal Cannula 3.00 09/13/22 12:00 130 23 155/100 (118) 98 Nasal Cannula 3.00 09/13/22 11:47 37.2 09/13/22 11:00 124 20 137/97 (110) 97 Nasal Cannula 3.00 09/13/22 10:00 124 27 146/96 (113) 98 Nasal Cannula 3.00 09/13/22 09:45 93 Nasal Cannula 3.00 09/13/22 09:00 124 23 138/92 (107) 93 Nasal Cannula 3.00 I & O 09/14/22 07:00 Intake Total 1395 ml Output Total 2815 ml Balance -1420 ml Height & Weight Height: 5'8.00" Weight: 185lbs. 0.0oz. [id number]; 29.18 BMI Method:Stated General Appearance: No Apparent Distress, Chronically ill, Obese HEENT: PERRL/EOMI Respiratory: No Respiratory Distress, Accessory Muscle Use, Crackles (B/L mid to base), Wheezing (expiratory B/L) Cardiovascular: No Murmur, Irregularly Irregular, Tachycardia Capillary Refill: Less Than 3 Seconds Peripheral Pulses: 2+ Dorsalis Pedis (R), 2+ Left Dors-Pedis (L) Gastrointestinal: abnormal bowel sounds (hypoactive), distended (about same as yesterday) Extremity: No Calf Tenderness, No Pedal Edema Neurologic/Psychiatric: Alert Skin: Normal Color, Warm/Dry Results Lab Laboratory Tests 09/13/22 04:25 09/14/22 03:25 Assessment/Plan Assessment/Plan as above Critical Care: Critically Ill Patient Time spent with patient (mins): 20 LYNNE MIN MD Sep 14, 2022 08:21
[2022-09-14] MEDS: METOCLOPRAMIDE INJ 10 MG/2 ML (REGLAN) IVP SCH ×3 (08:54→20:36)
--- NOTE | 2022-09-14 09:04 | Progress Note - Surgery ---
RAYMUNDOLINETTE 09/14/22 0904: Subjective Date Seen by a Provider: Sep 14, 2022 Time Seen by a Provider: 08:58 Subjective/Events-last exam Pt was seen and interviewed today. Pt states that he is dong better than yesterday. Pt currently NPO and restarted NG tube due to emesis after eating jello yesterday. Pt hasn't had any episodes of vomiting since yesterday. Pt had 175mL from NG tube in the last 4 hrs; Urine rate is within normal limits at 1cc/kg/hr in the last 4hrs. Pt is also still currently on 2L of oxygen NC. Pt did have bowel movement this morning about 7am; liquid stool consistency. Abdominal X-ray was ordered yesterday 09/13/22 due to abdominal distension, and showed mild abnormal gaseous distention of the small bowel suspicious for potential obstruction. Radiology advised follow-up. Pt also had CXR due to respiratory failure; showed bibasilar atelectasis. Review of Systems General: No Chills, No Night Sweats, No Fatigue HEENT: No Head Aches, No Visual Changes, No Eye Pain Pulmonary: No Dyspnea; Cough Cardiovascular: No: Chest Pain, Palpitations, Edema Gastrointestinal: Vomiting (vomited yesterday 09/13/22 after consuming jello); No: Nausea, Abdominal Pain Genitourinary: No Dysuria Neurological: No: Weakness, Numbness Objective Exam Vital Signs Date Time Temp Pulse Resp B/P (MAP) Pulse Ox O2 Delivery O2 Flow Rate FiO2 09/14/22 08:03 36.8 09/14/22 08:00 122 22 127/87 (100) 95 Nasal Cannula 2.00 09/14/22 07:00 123 09/14/22 07:00 107 18 137/82 (100) 95 Nasal Cannula 2.00 09/14/22 06:00 88 21 133/79 (97) 89 Nasal Cannula 2.00 09/14/22 05:00 121 19 149/82 (104) 94 Nasal Cannula 2.00 09/14/22 04:13 120 136/83 09/14/22 04:13 Nasal Cannula 2.00 09/14/22 04:00 120 20 136/83 (100) 96 Nasal Cannula 4.00 09/14/22 03:40 96 Nasal Cannula 4.00 09/14/22 03:40 36.5 120 20 150/79 (102) 96 Nasal Cannula 4.00 09/14/22 03:00 118 18 144/80 (101) 94 Nasal Cannula 4.00 09/14/22 02:47 98 Nasal Cannula 5.00 09/14/22 02:35 120 19 90 Nasal Cannula 4.00 09/14/22 02:00 120 19 151/85 (107) 95 Nasal Cannula 2.00 09/14/22 01:00 121 40 136/85 (102) 95 Nasal Cannula 2.00 09/14/22 01:00 121 09/14/22 00:00 121 22 142/86 (104) 94 Nasal Cannula 2.00 09/13/22 23:15 36.5 122 17 136/89 (105) 96 Nasal Cannula 2.00 09/13/22 23:15 96 Nasal Cannula 2.00 09/13/22 22:00 121 18 140/93 (109) 95 Nasal Cannula 2.00 09/13/22 21:58 122 142/97 09/13/22 21:39 98 Room Air 2.00 09/13/22 21:15 122 22 148/92 (110) 97 Nasal Cannula 2.00 09/13/22 20:00 123 17 138/95 (109) 95 Nasal Cannula 2.00 09/13/22 19:55 96 Nasal Cannula 2.00 09/13/22 19:45 122 23 142/93 (109) 96 Nasal Cannula 2.00 09/13/22 19:02 124 09/13/22 19:00 37.1 123 19 142/107 (119) 96 Nasal Cannula 2.00 09/13/22 18:07 128 118/90 09/13/22 18:00 126 142/81 (101) 95 Nasal Cannula 2.00 09/13/22 17:00 128 118/90 (99) 99 Nasal Cannula 2.00 09/13/22 16:15 92 Nasal Cannula 2.00 09/13/22 16:00 128 178/97 (124) 96 Nasal Cannula 2.00 09/13/22 15:51 Nasal Cannula 2.00 09/13/22 15:42 96 Nasal Cannula 3.00 09/13/22 15:00 123 136/92 (107) 97 Nasal Cannula 3.00 09/13/22 14:33 125 131/96 09/13/22 14:00 124 30 173/97 (122) 96 Nasal Cannula 3.00 09/13/22 13:00 125 151/88 (109) 99 Nasal Cannula 3.00 09/13/22 13:00 126 09/13/22 12:16 96 Nasal Cannula 3.00 09/13/22 12:00 130 23 155/100 (118) 98 Nasal Cannula 3.00 09/13/22 11:47 37.2 09/13/22 11:00 124 20 137/97 (110) 97 Nasal Cannula 3.00 09/13/22 10:00 124 27 146/96 (113) 98 Nasal Cannula 3.00 09/13/22 09:45 93 Nasal Cannula 3.00 09/13/22 09:00 124 23 138/92 (107) 93 Nasal Cannula 3.00 I & O 09/14/22 07:00 Intake Total 1395 ml Output Total 2815 ml Balance -1420 ml Capillary Refill : Less Than 3 SecondsLess Than 3 Seconds General Appearance: No Apparent Distress, Chronically ill, Obese HEENT: PERRL/EOMI Respiratory: No Respiratory Distress, Accessory Muscle Use, Crackles (B/L mid to base), Wheezing (expiratory B/L) Cardiovascular: No Murmur, Irregularly Irregular, Tachycardia Peripheral Pulses: 2+ Dorsalis Pedis (R), 2+ Left Dors-Pedis (L) Gastrointestinal: non tender, abnormal bowel sounds, distended (about same as yesterday) Extremity: Non Tender, No Calf Tenderness, No Pedal Edema Neurologic/Psychiatric: Alert Skin: Normal Color, Warm/Dry Results Lab Laboratory Tests 09/14/22 03:25: White Blood Count 24.2H, Red Blood Count 4.13L, Hemoglobin 12.3L, Hematocrit 39L , Mean Corpuscular Volume 93, Mean Corpuscular Hemoglobin 30, Mean Corpuscular Hemoglobin Concent 32, Red Cell Distribution Width 14.6H, Platelet Count 300, Mean Platelet Volume 10.6, Immature Granulocyte % (Auto) 2, Neutrophils (%) (Auto) 93H, Lymphocytes (%) (Auto) 4L, Monocytes (%) (Auto) 1, Eosinophils (%) (Auto) 0, Basophils (%) (Auto) 0, Neutrophils # (Auto) 22.6H, Lymphocytes # (Auto) 0.9L, Monocytes # (Auto) 0.3, Eosinophils # (Auto) 0.0, Basophils # (Auto) 0.1, Immature Granulocyte # (Auto) 0.4H, Prothrombin Time 14.1, INR Comment 1.0, Sodium Level 140, Potassium Level 3.4L, Chloride Level 106, Carbon Dioxide Level 25, Anion Gap 9, Blood Urea Nitrogen 17, Creatinine 0.88, Estimat Glomerular Filtration Rate 84, BUN/Creatinine Ratio 19, Glucose Level 183H, Calcium Level 8.1L, Corrected Calcium 9.0, Phosphorus Level 2.6, Magnesium Level 2.4, Total Bilirubin 0.6, Aspartate Amino Transf (AST/SGOT) 25, Alanine Aminotransferase (ALT/SGPT) 33, Alkaline Phosphatase 73, Total Protein 5.3L, Albumin 2.9L, Triglycerides Level 181H Assessment/Plan Assessment/Plan Assessment/Plan Continue supportive care Very complicated case Assessment: Acute cholecystitischolecystectomy postop day #8 Postop ileus on 09/09/2022-resolved then recurred; Pt has had bowel movement today with liquid consistency. A. fib with RVR maintained on cardizem drip History of chronic atrial fibrillation CHF Hypertension CAD Status post cardiac arrest at home March 2022 Hypokalemia Leukocytosis Plan: Continue NPO due to emesis yesterday 09/13/22 Consider small bowel follow through due to potential small bowel obstructions per abdominal x-ray Supportive care Encourage pt to ambulate to chair and use IS Remain in ICU d/t heart rate STEPHEN ENCARNACION DO 09/14/22 1611: Subjective Subjective/Events-last exam Ng tube placed last night due to dilated loops of small bowel and having emesis. Feeling better today. Had small bm. Denies any other complaints. Pain controlled. Objective Exam General Appearance: No Apparent Distress, Chronically ill HEENT: PERRL/EOMI, Normal ENT Inspection Neck: Non Tender, Supple Respiratory: Chest Non Tender, No Accessory Muscle Use, No Respiratory Distress Cardiovascular: No JVD, Irregularly Irregular Gastrointestinal: distended, other (incisions some bruising, no signs of infection, slight serous appearing drainage at umbilicus.) Extremity: Non Tender, No Calf Tenderness Neurologic/Psychiatric: Alert, Oriented x3 Skin: Normal Color, Warm/Dry Lymphatic: No Adenopathy Assessment/Plan Assessment/Plan Assessment/Plan Acute cholecystitischolecystectomy and hernia repair Postop ileus N/V ng tube back in A. fib with RVR maintained on cardizem drip History of chronic atrial fibrillation CHF Hypertension CAD Status post cardiac arrest at home March 2022 Hypokalemia Leukocytosis NG tube NPO TPN Pain control Await better bowel function then remove ng and start diet Supervisory-Addendum Brief Verification & Attestation Participated in pt care: history, MDM, physical Personally performed: exam, history, MDM, supervision of care Care discussed with: Medical Student Procedures: n/a Results interpretation: Verified all documentation Verification and Attestation of Medical Student E/M Service A medical student performed and documented this service in my presence. I reviewed and verified all information documented by the medical student and made modifications to such information, when appropriate. I personally performed the physical exam and medical decision making. Stephen Encarnacion, Sep 14, 2022,16:11 LINETTE FONSECA Sep 14, 2022 09:04 STEPHEN ENCARNACION DO Sep 14, 2022 16:11
[2022-09-14] MEDS: PANTOPRAZOLE 40 MG (PROTONIX) VIAL IV SCH (09:12)
[2022-09-14] MEDS: BISACODYL 10 MG SUPP (DULCOLAX) PR SCH (09:13)
--- NOTE | 2022-09-14 09:55 | Cardiology Progress Note ---
Subjective Date Seen by Provider: Sep 14, 2022 Time Seen by Provider: 09:54 Subjective/Events-last exam Patient was seen at bedside, complaining of fatigue and loss of energy. Has an NG tube back. Review of Systems General: No Chills, No Night Sweats; Fatigue; No Malaise, No Appetite, No Other HEENT: No Head Aches, No Visual Changes, No Eye Pain, No Ear Pain, No Dy sphasia, No Sinus Congestion, No Post Nasal Drip, No Sore Throat, No Other Pulmonary: No Dyspnea, No Cough, No Pleuritic Chest Pain, No Other Cardiovascular: No: Chest Pain, Palpitations, Orthopnea, Paroxysmal Noc. Dyspnea, Edema, Lt Headedness, Other Objective-Cardiology Exam Last Set of Vital Signs Vital Signs 09/12/22 09/14/22 09/14/22 16:30 08:03 09:00 Temp 36.8 Pulse 110 Resp 25 B/P (MAP) 136/74 (94) Pulse Ox 96 O2 Delivery Nasal Cannula O2 Flow Rate 2.00 FiO2 96 I&O Intake and Output 09/14/22 00:00 Intake Total 2595 ml Output Total 2565 ml Balance 30 ml Intake Oral 340 ml IV Total 2225 ml Other 30 ml Output Urine Total 1565 ml Gastric Drainage Total 1000 ml # Bowel Movements 1 # Emeses 75 General: Alert, Other (Subtle confusion) HEENT: Atraumatic, PERRLA, EOMI, Mucous Memb Moist/[place] Neck: Supple, No JVD Lungs: Other (Crackles) Heart: Normal S1, Normal S2, Other (Tachycardic) Abdomen: Other (Decreased bowel sounds) Extremities: No Edema, Normal Pulses Skin: No Rashes, No Significant Lesion Neuro: Normal Speech, Strength at 5/5 X4 Ext, Normal Tone Psych/Mental Status: Mental Status NL, Other (Depressed affect) Results Lab Laboratory Tests 09/14/22 03:25 A/P-Cardiology Admission Diagnosis Acute cholecystitis Coronary artery disease Permanent atrial fibrillation Hypertension Assessment/Plan Status post acute respiratory failure postoperatively on September 07, 2022 required BiPAP. Currently on nasal cannula, attempt to remove the NG tube yesterday, Jell-O then had emesis. NG tube was placed back on September 13, 2022. Still having distended abdomen, active bowel sounds. Acute cholecystitis, status postcholecystectomy done on September 07, 2022. Postop ileus. Slow improvement Atrial fibrillation/atrial flutter, heart rate is better controlled. History of permanent atrial fibrillation. Cannot tolerate oral medication due to postoperative ileus. I will continue with Cardizem drip, Lopressor IV, Digoxin IV and Lovenox, Currently on Lovenox, Marquise is on hold Status post acute congestive heart failure with fluid overload postoperatively, history of congestive heart failure with chronic compensated left ventricular d iastolic dysfunction 2D echo was done in March 2022 with normal left ventricular systolic function ej ection fraction 60 to 65% with dilated left atrium and pulmonary hypertension with PA pressure 40 to 45 mmHg Coronary artery disease, history of non-ST elevation myocardial infarction in March 2022 - Cardiac cath of 07-14-18: 90% cwv-es-cvrhht vessel stenosis of the left anterior descending artery within a small caliber vessel to which balloon angioplasty was carried out which reduced the stenosis to less than 50%. The rest of the coronary vessels have moderate diffuse disease. There is a patent stent in the right coronary with a 50% in-stent restenosis (unchanged compared to previous study). Elevated left ventricular end-diastolic pressure. - MPI of 12/07/19: no ischemia or infarction, LVEF 48% (appeared to be higher, subjectively) - Card cath on 03/25/22: 90-85 prox and mid LAD stenosis treated with PTCA and then 2.25 x 23 mm GABRIELA, distal LAD, distal LCX, and prox RI have severe disease that is not amenable to intervention, RCA is dominant with patent prox stent wit h up to 50 instent and distal RCA with up to 50 stenoses, LVEDP 22 mmHg Has been maintained on aspirin and Plavix last taken on September 05, 2022. History of syncope and collapse reported pulseless per family on March 24, 2022. Had chest compression Loop monitor implanted on March 26, 2022. History of rib fractures after chest compression Hypertension, continue to monitor blood pressure Hyperlipidemia, maintained on statin. Currently on hold History of umbilical hernia. Questionable underlying sleep apnea Lumbar spondylosis and spinal stenosis, followed by IAN Fontaine MD Sep 14, 2022 09:55
[2022-09-14] MEDS: DOCUSATE SODIUM 100 MG (COLACE) CAP PO SCH ×2 (11:00→20:36)
[2022-09-14] MEDS: SENNOSIDES 8.6 MG (SENOKOT) TAB PO SCH ×2 (11:00→20:36)
[2022-09-14] MEDS: D5W 1000 ML IV SOLUTION 1,000 ML IV SCH (11:44)
[2022-09-14] MEDS: ENOXAPARIN 100 MG/1 ML (LOVENOX) SYR SC SCH ×2 (11:45→23:22)
--- NOTE | 2022-09-14 12:14 | Physical Therapy Daily Note ---
PT Daily Note-Current Subjective Pt in bed, agreeable. Nursing agreeable with activity but reports Pt had a rough afternoon yesterday and NG tube had to be replaced. Pain Numeric Pain Scale: 0-No Pain Location: No Pain Reported Section J - Health Conditions 1. Rarely or not at all 2. Occasionally 3. Frequently 4. Almost constantly 8. Unable to answer Pain Effect on Sleep: 1 Pain Interference with Therapy: 1 Pain Interference w/Day-to-Day: 1 Mental Status Patient Orientation: Person, Place, Time, Situation Attachments: NG Tube, Oxygen, Hassan Catheter, IV Transfers SCALE: Activities may be completed with or without assistive devices. 6-Eyofmlvovz-malihwp completes the activity by him/herself with no assistance from a helper. 5-Set-up or Clean-up Assistance-helper sets up or cleans up; patient completes activity. [place] assists only prior to or following the activity. 4-Supervision or Touching Assistance-helper provides verbal cues and/or touching/steadying and/or contact guard assistance as patient completes activity. Assistance may be provided throughout the activity or intermittently. 3-Partial/Moderate Assistance-helper does LESS THAN HALF the effort. [place] lifts, holds or supports trunk or limbs, but provides less than half the effort. 2-Substantial/Maximal Assistance-helper does MORE THAN HALF the effort. [place] lifts or holds trunk or limbs and provides more than half the effort. 5-Rqsqdqczw-dfkfrr does ALL the effort. Patient does none of the effort to complete the activity. Or, the assistance of 2 or more helpers is required for the patient to complete the activity. If activity was not attempted, code reason: 7-Patient Refused. 9-Not Applicable-not attempted and the patient did not perform the activity before the current illness, exacerbation or injury. 10-Not Attempted due to Environmental Limitations-(lack of equipment, weather restraints, etc.). 88-Not Attempted due to Medical Conditions or Safety Concerns. Sit to Lying (QC): 3 (Assist with (B) LE into bed) Lying to Sitting/Side of Bed(Q: 2 Sit to Stand (QC): 4 (CGA) Chair/Ycc-wf-Cibfk Xfer(QC): 4 (CGA, line management) Weight Bearing Right Lower Extremity: Right Weight Bearing/Tolerated Left Lower Extremity: Left Weight Bearing/Tolerated Gait Training Does the Patient Walk?: Yes Distance: 3' Gait Assistive Device: FWW Bed->BSC->chair->bed Pt stood at bedside with FWW and marched in place x 2', mini-squats x 10 Wheelchair Training Does the Pt Use a Wheelchair?: No Type of Wheelchair: N/A Exercises Standing: Marching, Mini squats Treatments Functional activity, safe transfers, gait with FWW. Pt returned to bed with O2 in situ, all needs met. Nursing notified of level of assist, Pt tolerance. Assessment Current Status: Good Progress Pt tolerated well. Mobility limited by multiple lines but good tolerance for standing exercises and transfers. PT Shelter Goals Shelter Goals PT Shelter Goals Time Frame: Sep 28, 2022 Roll Left & Right (QC): 6 Sit to Lying (QC): 6 Lying-Sitting on Side/Bed(QC): 6 Sit to Stand (QC): 6 Chair/Pjx-rp-Omjsw Xfer(QC): 6 Toilet Transfer (QC): 6 Walk 10 feet (QC): 6 Walk 50ft with 2 Turns (QC): 6 Walk 150 ft (QC): 6 PT Plan Problem List Problem List: Activity Tolerance, Functional Strength, Safety, Balance, Gait, Transfer, Bed Mobility Treatment/Plan Treatment Plan: Continue Plan of Care Treatment Plan: Bed Mobility, Education, Functional Activity Roro, Functional Strength, Gait, Safety, Therapeutic Exercise, Transfers Treatment Duration: Sep 28, 2022 Frequency: 6 times per week Estimated Hrs Per Day: .25 hour per day Patient and/or Family Agrees t: Yes Time Time In: 1036 Time Out: 1110 DATE: Sep 14, 2022 Total Billed Treatment Time: 34 Total Billed Treatment 1, FA x 2 MARY GUIDO DPBasim Sep 14, 2022 12:14
[2022-09-14] MEDS ORDERED: POTASSIUM PHOSPHATE IV SCH ×9 (17:00)
[2022-09-14] MEDS ORDERED: [UNRECOGNIZED DRUG - OTHER] IV SCH ×9 (17:00)
[2022-09-14] MEDS ORDERED: D5W 1000 ML IV SOLUTION 1,000 ML IV SCH (17:00)
[2022-09-14] MEDS ORDERED: TRACE ELEMENTS IV SCH ×9 (17:00)
[2022-09-14] MEDS ORDERED: TPN IV SCH (17:00)
[2022-09-14] MEDS ORDERED: VITAMIN MULTI IV SCH ×9 (17:00)
[2022-09-15] MEDS: METOCLOPRAMIDE INJ 10 MG/2 ML (REGLAN) IVP SCH ×4 (02:23→20:50)
[2022-09-15] MEDS: meTOprolol 5 MG/5 ML (LOPRESSOR) VIAL IV SCH ×8 (02:27→23:44)
[2022-09-15] MEDS: RT-ALBUTEROL SULF 2.5 MG/3 ML PRE-MIX VIAL INH SCH ×4 (02:38→20:42)
[2022-09-15 05:01] LABS: BASOPHILS # (AUTO) 0.1 10^3/uL (0.0-0.1); BASOPHILS % (AUTO) 0 % (0-10); EOSINOPHILS % (AUTO) 0 % (0-10); HEMATOCRIT 36 % (40-54); HEMOGLOBIN 11.9 g/dL (13.3-17.7); LYMPHOCYTES # (AUTO) 1.3 10^3/uL (1.0-4.0); LYMPHOCYTES % (AUTO) 5 % (12-44); MEAN CORPUSCULAR HEMOGLOBIN 31 pg (25-34); MEAN CORPUSCULAR HGB CONC 33 g/dL (32-36); MEAN CORPUSCULAR VOLUME 93 fL (80-99); MEAN PLATELET VOLUME 10.9 fL (9.0-12.2); MONOCYTES # (AUTO) 1.3 10^3/uL (0.0-1.0); MONOCYTES % (AUTO) 5 % (0-12); NEUTROPHILS # (AUTO) 22.7 10^3/uL (1.8-7.8); NEUTROPHILS % (AUTO) 87 % (42-75); PLATELET COUNT 318 10^3/uL (130-400); WHITE BLOOD COUNT 26.1 10^3/uL (4.3-11.0)
--- NOTE | 2022-09-15 05:07 | Progress Note ---
Subjective Date Seen by a Provider: Sep 15, 2022 Time Seen by a Provider: 05:00 Subjective/Events-last exam More complications Epistaxis now controlled after he took out his NG tube by mistake He reports Dr. Smith cauterized his nose recently Diltiazem drip maintained along with metoprolol with good control of heart rate Postop ileus continues Review of Systems General: Fatigue, Malaise Pulmonary: Dyspnea Gastrointestinal: Abdominal Pain Objective Exam Last Set of Vital Signs Vital Signs Date Time Temp Pulse Resp B/P (MAP) Pulse Ox O2 Delivery O2 Flow Rate FiO2 09/15/22 04:00 97 Nasal Cannula 2.00 09/15/22 01:00 80 09/15/22 00:31 140/66 09/14/22 22:00 19 09/14/22 19:47 36.8 09/12/22 16:30 96 Capillary Refill : Less Than 3 SecondsLess Than 3 Seconds I&O Intake and Output 09/15/22 00:00 Intake Total 465 ml Output Total 1740 ml Balance -1275 ml Intake Oral 0 ml IV Total 375 ml Other 90 ml Output Urine Total 765 ml Stool Total 325 ml Gastric Drainage Total 650 ml # Voids 2 # Bowel Movements 2 General: Alert, Oriented X3, Cooperative, No Acute Distress, Other (Chronically ill) Lungs: Other (Coarseness throughout all vaughan) Heart: Other (Irregular regular heart rate 69) Results Lab Laboratory Tests 09/15/22 04:45: Assessment/Plan Assessment/Plan Assess & Plan/Chief Complaint Continue supportive care Very complicated case Assessment: Acute cholecystitischolecystectomy postop day #8 Postop ileus on 09/09/2022-resolved then recurred-took out his NG tube last night by mistake Prabhu rivera with RVR maintained on cardizem drip History of chronic atrial fibrillation CHF Hypertension CAD Status post cardiac arrest at home March 2022 Hypokalemia Leukocytosis Plan: Cardizem drip IV metoprolol ICU required Cardiology Supportive care TPN K replacement Encourage pt to ambulate to chair and use IS Remain in ICU d/t heart rate KAREN JJ DO Sep 15, 2022 05:07
[2022-09-15 05:14] LABS: ALBUMIN 2.6 GM/DL (3.2-4.5); POTASSIUM 2.9 MMOL/L (3.6-5.0)
[2022-09-15 05:15] LABS: CALCIUM 7.9 MG/DL (8.5-10.1)
[2022-09-15 05:17] LABS: TOTAL PROTEIN 4.9 GM/DL (6.4-8.2)
[2022-09-15 05:19] LABS: BILIRUBIN,TOTAL 0.6 MG/DL (0.1-1.0)
[2022-09-15 05:20] LABS: CREATININE SERUM 0.87 MG/DL (0.60-1.30)
[2022-09-15 05:23] LABS: MAGNESIUM 2.1 MG/DL (1.6-2.4)
[2022-09-15] MEDS: CEFEPIME INJECTION 1,000 MG in NS (IVPB) 50 ML IV SCH (05:59)
[2022-09-15] MEDS: POTASSIUM CL 10MEQ/50ML IVPB 50 ML IV SCH ×8 (06:00→21:53)
[2022-09-15] MEDS: KCL 20 MEQ TAB (K-DUR) PO SCH (06:00)
[2022-09-15] MEDS: MAGNESIUM 1 GM/100 ML IVPB 100 ML IV SCH (06:00)
[2022-09-15] MEDS: DOCUSATE SODIUM 100 MG (COLACE) CAP PO SCH ×2 (07:52→21:25)
[2022-09-15] MEDS: BISACODYL 10 MG SUPP (DULCOLAX) PR SCH (07:53)
--- NOTE | 2022-09-15 08:14 | Diagnostic Imaging Report ---
EXAM: ABDOMEN/KUB 1VIEW INDICATION: Follow-up ileus. COMPARISON: Abdominal radiographs 09/13/2022. FINDINGS/ IMPRESSION: There remain several loops of gaseously distended small bowel throughout the abdomen. No free intraperitoneal air is evident on the supine only exam. Visualized lung bases are clear. Cholecystectomy clips. Dictated by: Dictated on workstation # [id number]
--- NOTE | 2022-09-15 08:45 | Tele-ICU Progress Note ---
Subjective Date Seen by a Provider: Sep 15, 2022 Time Seen by a Provider: 08:40 Subjective/Events-last exam This patient admitted with acute cholecystitis and underwent laparoscopic cholecystectomy and umbilical hernia repair on 09/07/2022. Currently he is on a nasal cannula. He additionally has a atrial fibrillation with rapid ventricular rate which is being controlled with the diltiazem drip. He is receiving cefepi me and Flagyl for antibiotic coverage. He is currently out of bed to chair postoperative respiratory failure improved currently on a nasal cannula. Per CERTIFIED PHARMACY TECHNICIAN patient has a coarse breath sounds and wheezing. Apparently he is passing gas and has a mucousy bowel movements. Today we have done a chest x-ray which showed low lung volumes with bilateral basilar subsegmental atelectasis. Today his white count went up. Potassium 2.9-replaced, will check BMP at 4 pm, was confused but now a little b michelle, had 4 BM's last night WBC up to 26k, On IV Flagyl and Cefepime, also on TPN-PICC line site looks ok, A fib-V rate 107 on IV Cardizem @ 20, also getting IV metoprolol IV PNR Sepsis Event Evaluation Height, Weight, BMI Height: 5'8.00" Weight: 185lbs. 0.0oz. 83.064027el; 28.44 BMI Method:Stated Exam Exam Patient acknowledged, consented, and participated in this virtual visit which was conducted using real time audio/video Vital Signs Date Time Temp Pulse Resp B/P (MAP) Pulse Ox O2 Delivery O2 Flow Rate FiO2 09/15/22 08:00 36.6 09/15/22 07:00 107 09/15/22 06:56 98 Nasal Cannula 2.00 09/15/22 06:00 124 23 168/109 (128) 96 Nasal Cannula 2.00 09/15/22 05:00 65 20 141/72 (95) 94 Nasal Cannula 2.00 09/15/22 04:00 97 Nasal Cannula 2.00 09/15/22 04:00 84 19 131/84 (100) 90 Nasal Cannula 2.00 09/15/22 03:00 68 17 138/75 (96) 94 Nasal Cannula 2.00 09/15/22 02:00 123 152/99 (116) 95 Nasal Cannula 2.00 09/15/22 01:00 80 23 137/84 (101) 96 Nasal Cannula 2.00 09/15/22 01:00 80 09/15/22 00:31 64 140/66 09/15/22 00:00 69 16 127/65 (85) 95 Nasal Cannula 2.00 09/14/22 23:59 96 Nasal Cannula 2.00 09/14/22 23:00 68 22 130/64 (86) 96 Nasal Cannula 2.00 09/14/22 22:00 68 19 134/94 (107) 95 Nasal Cannula 2.00 09/14/22 21:00 120 21 153/89 (110) 98 Nasal Cannula 2.00 09/14/22 20:15 122 24 130/76 (94) 96 Nasal Cannula 2.00 09/14/22 20:00 97 Nasal Cannula 2.00 09/14/22 19:47 36.8 09/14/22 19:34 98 Nasal Cannula 2.00 09/14/22 19:00 84 22 131/80 (97) 95 Nasal Cannula 2.00 09/14/22 19:00 84 09/14/22 18:00 121 20 135/81 (99) 96 Nasal Cannula 2.00 09/14/22 17:09 121 148/92 09/14/22 17:00 122 23 131/83 (99) 99 Nasal Cannula 2.00 09/14/22 16:43 36.7 09/14/22 16:00 98 Nasal Cannula 2.00 09/14/22 16:00 121 148/92 (110) 91 Nasal Cannula 2.00 09/14/22 15:00 121 138/78 (98) 94 Nasal Cannula 2.00 09/14/22 14:00 121 136/78 (97) 92 Nasal Cannula 2.00 09/14/22 13:00 121 152/77 (102) 94 Nasal Cannula 2.00 09/14/22 12:36 121 09/14/22 12:16 38.0 09/14/22 12:00 121 131/77 (95) 95 Nasal Cannula 2.00 09/14/22 12:00 94 Nasal Cannula 2.00 09/14/22 11:00 124 119/87 (98) 96 Nasal Cannula 2.00 09/14/22 10:26 88 122/92 09/14/22 10:06 95 Nasal Cannula 2.00 09/14/22 10:00 88 122/92 (102) 96 Nasal Cannula 2.00 09/14/22 09:00 110 25 136/74 (94) 96 Nasal Cannula 2.00 I & O 09/15/22 07:00 Intake Total 255 ml Output Total 1225 ml Balance -970 ml Height & Weight Height: 5'8.00" Weight: 185lbs. 0.0oz. 83.443004ky; 28.44 BMI Method:Stated General Appearance: No Apparent Distress, Chronically ill, Obese HEENT: PERRL/EOMI Neck: Non Tender, Supple Respiratory: No Respiratory Distress, Accessory Muscle Use, Crackles (B/L mid to base), Wheezing (expiratory B/L) Cardiovascular: No Murmur, Irregularly Irregular, Tachycardia Capillary Refill: Less Than 3 Seconds Peripheral Pulses: 2+ Dorsalis Pedis (R), 2+ Left Dors-Pedis (L) Gastrointestinal: normal bowel sounds, non tender, abnormal bowel sounds (hypoactive), distended (about same as yesterday), other (has bleeding hemmiroids, also some bleeding from umbilical hernia site) Extremity: No Calf Tenderness, No Pedal Edema, Pedal Edema (+1 ankle edema) Neurologic/Psychiatric: Alert Skin: Normal Color, Warm/Dry Lymphatic: No Adenopathy Results Lab Laboratory Tests 09/14/22 03:25 09/15/22 04:45 Assessment/Plan Assessment/Plan s/p septic shock, no pressors s/p explor lap for gall bladder, umbilical hernia repair wit mesh-will continue TPN and abx, started on clear liquid sips, hopefully will be able to advance, Hassan catheter is out A fib under fair control, on IV Cardizem @ 10, will probably go up to 15 , continue on 2 lpm NC Critical Care: Critically Ill Patient Time spent with patient (mins): 25 FREDDY ALDRICH MD Sep 15, 2022 08:45
[2022-09-15] MEDS: SENNOSIDES 8.6 MG (SENOKOT) TAB PO SCH ×2 (08:53→21:25)
[2022-09-15] MEDS: meTOprolol TARTRATE 25 MG (LOPRESSOR) TABLET PO SCH ×2 (08:53→20:50)
[2022-09-15] MEDS: PANTOPRAZOLE 40 MG (PROTONIX) VIAL IV SCH (08:53)
[2022-09-15] MEDS: metroNIDAZOLE 500MG/100ML IVPB 100 ML IV SCH ×2 (08:53→20:51)
[2022-09-15] MEDS: DIGOXIN 0.125 MG (LANOXIN) TAB PO SCH (08:53)
--- NOTE | 2022-09-15 10:36 | Cardiology Progress Note ---
Subjective Date Seen by Provider: Sep 15, 2022 Time Seen by Provider: 10:34 Subjective/Events-last exam Patient was seen at bedside, laying down comfortably, still having distended abdomen but overall feeling better Review of Systems General: No Chills, No Night Sweats, No Fatigue, No Malaise, No Appetite, No Other HEENT: No Head Aches, No Visual Changes, No Eye Pain, No Ear Pain, No Dysphasia, No Sinus Congestion, No Post Nasal Drip, No Sore Throat, No Other Pulmonary: No Dyspnea, No Cough, No Pleuritic Chest Pain, No Other Cardiovascular: No: Chest Pain, Palpitations, Orthopnea, Paroxysmal Noc. Dyspnea, Edema, Lt Headedness, Other Objective-Cardiology Exam Last Set of Vital Signs Vital Signs 09/12/22 09/15/22 09/15/22 16:30 06:00 10:00 Pulse 61 Resp 23 B/P (MAP) 131/73 (92) Pulse Ox 97 O2 Delivery Nasal Cannula O2 Flow Rate 2.00 FiO2 96 I&O Intake and Output 09/14/22 23:59 Intake Total 465 ml Output Total 1740 ml Balance -1275 ml Intake Oral 0 ml IV Total 375 ml Other 90 ml Output Urine Total 765 ml Stool Total 325 ml Gastric Drainage Total 650 ml # Voids 2 # Bowel Movements 2 General: Alert, Oriented X3, Cooperative, No Acute Distress, Other (Chronically ill) HEENT: Atraumatic, PERRLA, EOMI, Mucous Memb Moist/[place] Neck: Supple, No JVD Lungs: Other (Coarseness throughout all vaughan) Heart: Normal S1, Normal S2, Other (Irregular regular heart rate 69) Abdomen: Other (Decreased bowel sounds) Extremities: No Edema, Normal Pulses Skin: No Rashes, No Significant Lesion Neuro: Normal Speech, Strength at 5/5 X4 Ext, Normal Tone Psych/Mental Status: Mental Status NL, Other (Depressed affect) Results Lab Laboratory Tests 09/15/22 04:45 A/P-Cardiology Admission Diagnosis Acute cholecystitis Coronary artery disease Permanent atrial fibrillation Hypertension Assessment/Plan Status post acute respiratory failure postoperatively on September 07, 2022 required BiPAP. Currently on nasal cannula, attempt to remove the NG tube yesterday, Jell-O then had emesis. NG tube was placed back on September 13, 2022. Still having distended abdomen, active bowel sounds. Increase in WBC, having diarrhea. I will evaluate stool for C. difficile. Patient is on cefepime and metronidazole Acute cholecystitis, status postcholecystectomy done on September 07, 2022. Postop ileus. Slow improvement Atrial fibrillation/atrial flutter, heart rate is better controlled. History of permanent atrial fibrillation. Cannot tolerate oral medication due to postoperative ileus. Continue with Cardizem drip, Lopressor IV, Digoxin IV and Lovenox, Currently on Lovenox, Eliquis is on hold Status post acute congestive heart failure with fluid overload postoperatively, history of congestive heart failure with chronic compensated left ventricular diastolic dysfunction 2D echo was done in March 2022 with normal left ventricular systolic function ejection fraction 60 to 65% with dilated left atrium and pulmonary hypertension with PA pressure 40 to 45 mmHg Coronary artery disease, history of non-ST elevation myocardial infarction in March 2022 - Cardiac cath of 07-14-18: 90% [id number] vessel stenosis of the left anterior descending artery within a small caliber vessel to which balloon angioplasty was carried out which reduced the stenosis to less than 50%. The rest of the coronary vessels have moderate diffuse disease. There is a patent stent in the right coronary with a 50% in-stent restenosis (unchanged compared to previous study). Elevated left ventricular end-diastolic pressure. - MPI of 12/07/19: no ischemia or infarction, LVEF 48% (appeared to be higher, subjectively) - Card cath on 03/25/22: 90-85 prox and mid LAD stenosis treated with PTCA and then 2.25 x 23 mm GABRIELA, distal LAD, distal LCX, and prox RI have severe disease that is not amenable to intervention, RCA is dominant with patent prox stent with up to 50 instent and distal RCA with up to 50 stenoses, LVEDP 22 mmHg Has been maintained on aspirin and Plavix last taken on September 05, 2022. I will hold Plavix due to active oozing from the surgical site Continue on Lovenox History of syncope and collapse reported pulseless per family on March 24, 2022. Had chest compression Loop monitor implanted on March 26, 2022. History of rib fractures after chest compression Hypertension, continue to monitor blood pressure Hyperlipidemia, maintained on statin. Currently on hold History of umbilical hernia. Questionable underlying sleep apnea Lumbar spondylosis and spinal stenosis, followed by IAN Fontaine MD Sep 15, 2022 10:36
[2022-09-15] MEDS: ENOXAPARIN 100 MG/1 ML (LOVENOX) SYR SC SCH ×2 (10:54→23:44)
[2022-09-15] MEDS: TRACE ELEMENTS IV SCH ×9 (17:19)
[2022-09-15] MEDS: POTASSIUM PHOSPHATE IV SCH ×9 (17:19)
[2022-09-15] MEDS: [UNRECOGNIZED DRUG - OTHER] IV SCH ×9 (17:19)
[2022-09-15] MEDS: VITAMIN MULTI IV SCH ×9 (17:19)
[2022-09-15 17:22] LABS: POTASSIUM 3.1 MMOL/L (3.6-5.0)
[2022-09-15 17:28] LABS: CREATININE SERUM 0.88 MG/DL (0.60-1.30)
[2022-09-15] MEDS: D5W 1000 ML IV SOLUTION 1,000 ML IV SCH (17:28)
--- NOTE | 2022-09-15 18:34 | Progress Note ---
Standard Progress Note Progress Notes/Assess & Plan Date Seen by a Provider: Sep 15, 2022 Time Seen by a Provider: 18:32 Progress/Assessment & Plan despite potassium replacement this am 4 pm BMP showed potassium 3.1, will give another 40 Meq KCL over 4 hours FREDDY ALDRICH MD Sep 15, 2022 18:34
--- NOTE | 2022-09-15 22:31 | Progress Note - Surgery ---
Subjective Date Seen by a Provider: Sep 15, 2022 Time Seen by a Provider: 08:13 Subjective/Events-last exam Patient feeling a little better. Having some liquid stools. Abdomen less distended. Not having nausea or emesis. NG tube he pulled out over night. SInce having bms left out. Started on sips of clears and tolerating currently. Denies n/v fever sweats chills shortness of breath or chest pain at this time. WBC increasing. Hypkaemia. On TPN Objective Exam Vital Signs Date Time Temp Pulse Resp B/P (MAP) Pulse Ox O2 Delivery O2 Flow Rate FiO2 09/15/22 20:51 123 160/91 09/15/22 20:42 96 Nasal Cannula 2.00 09/15/22 20:00 96 Nasal Cannula 2.00 09/15/22 19:53 36.3 09/15/22 19:00 132 09/15/22 18:00 123 160/91 (114) 95 Nasal Cannula 2.00 09/15/22 17:19 125 128/86 09/15/22 17:00 125 128/86 (100) Nasal Cannula 2.00 09/15/22 16:00 123 163/91 (115) Nasal Cannula 2.00 09/15/22 16:00 96 Nasal Cannula 2.00 09/15/22 16:00 37.4 09/15/22 15:00 124 137/97 (110) Nasal Cannula 2.00 09/15/22 14:52 Nasal Cannula 2.00 09/15/22 14:00 86 157/79 (105) Nasal Cannula 2.00 09/15/22 13:00 73 151/88 (109) 90 Nasal Cannula 2.00 09/15/22 12:34 73 09/15/22 12:00 96 Nasal Cannula 2.00 09/15/22 12:00 36.2 09/15/22 12:00 61 144/78 (100) 99 Nasal Cannula 2.00 09/15/22 11:00 61 137/79 (98) 99 Nasal Cannula 2.00 09/15/22 10:00 61 131/73 (92) 97 Nasal Cannula 2.00 09/15/22 09:56 124 141/89 09/15/22 09:00 124 141/89 (106) 97 Nasal Cannula 2.00 09/15/22 08:00 36.6 09/15/22 08:00 122 159/88 (111) 96 Nasal Cannula 2.00 09/15/22 08:00 96 Nasal Cannula 2.00 09/15/22 07:00 107 09/15/22 07:00 70 144/58 (86) 99 Nasal Cannula 2.00 09/15/22 06:56 98 Nasal Cannula 2.00 09/15/22 06:00 124 23 168/109 (128) 96 Nasal Cannula 2.00 09/15/22 05:00 65 20 141/72 (95) 94 Nasal Cannula 2.00 09/15/22 04:00 97 Nasal Cannula 2.00 09/15/22 04:00 84 19 131/84 (100) 90 Nasal Cannula 2.00 09/15/22 03:00 68 17 138/75 (96) 94 Nasal Cannula 2.00 09/15/22 02:00 123 152/99 (116) 95 Nasal Cannula 2.00 09/15/22 01:00 80 23 137/84 (101) 96 Nasal Cannula 2.00 09/15/22 01:00 80 09/15/22 00:31 64 140/66 09/15/22 00:00 69 16 127/65 (85) 95 Nasal Cannula 2.00 09/14/22 23:59 96 Nasal Cannula 2.00 09/14/22 23:00 68 22 130/64 (86) 96 Nasal Cannula 2.00 I & O 09/15/22 07:00 Intake Total 255 ml Output Total 1225 ml Balance -970 ml Capillary Refill : Less Than 3 SecondsLess Than 3 Seconds General Appearance: No Apparent Distress, Chronically ill, Obese HEENT: PERRL/EOMI Neck: Non Tender, Supple Respiratory: Chest Non Tender, No Respiratory Distress, Accessory Muscle Use, Crackles (B/L mid to base), Wheezing (expiratory B/L) Cardiovascular: Irregularly Irregular, Tachycardia Peripheral Pulses: 2+ Dorsalis Pedis (R), 2+ Left Dors-Pedis (L) Gastrointestinal: abnormal bowel sounds, distended (same to slightly less), other (slight serosang drainage from umbilical incision site does not look infected) Extremity: No Calf Tenderness, No Pedal Edema, Pedal Edema (+1 ankle edema) Neurologic/Psychiatric: Alert Skin: Normal Color, Warm/Dry Lymphatic: No Adenopathy Results Lab Laboratory Tests 09/15/22 04:45: White Blood Count 26.1H, Red Blood Count 3.90L, Hemoglobin 11.9L, Hematocrit 36L , Mean Corpuscular Volume 93, Mean Corpuscular Hemoglobin 31, Mean Corpuscular Hemoglobin Concent 33, Red Cell Distribution Width 14.5, Platelet Count 318, Mean Platelet Volume 10.9, Immature Granulocyte % (Auto) 3, Neutrophils (%) (Auto) 87H, Lymphocytes (%) (Auto) 5L, Monocytes (%) (Auto) 5, Eosinophils (%) (Auto) 0, Basophils (%) (Auto) 0, Neutrophils # (Auto) 22.7H, Lymphocytes # (Auto) 1.3, Monocytes # (Auto) 1.3H, Eosinophils # (Auto) 0.0, Basophils # (Auto) 0.1, Immature Granulocyte # (Auto) 0.7H, Sodium Level 141, Potassium Level 2.9L, Chloride Level 108H, Carbon Dioxide Level 25, Anion Gap 8, Blood Urea Nitrogen 20H, Creatinine 0.87, Estimat Glomerular Filtration Rate 85, BUN/Creatinine Ratio 23, Glucose Level 171H, Calcium Level 7.9L, Corrected Calcium 9.0, Magnesium Level 2.1, Total Bilirubin 0.6, Aspartate Amino Transf (AST/SGOT) 46H, Alanine Aminotransferase (ALT/SGPT) 37, Alkaline Phosphatase 71, Total Protein 4.9L, Albumin 2.6L 09/15/22 17:00: Sodium Level 141, Potassium Level 3.1L, Chloride Level 108H, Carbon Dioxide Level 23, Anion Gap 10, Blood Urea Nitrogen 20H, Creatinine 0.88, Estimat Glomerular Filtration Rate 84, BUN/Creatinine Ratio 23, Glucose Level 134H, Calcium Level 8.0L Microbiology 09/15/22 C. difficile GDH Antigen & Toxins - Final, Complete Assessment/Plan Assessment/Plan Assessment/Plan Acute cholecystitischolecystectomy and umbilical hernia repair Postop ileus on 09/09/2022-resolved then recurred-took out his NG tube last night by mistake Prabhu rivera with RVR maintained on cardizem drip History of chronic atrial fibrillation CHF Hypertension CAD Status post cardiac arrest at home March 2022 Hypokalemia Leukocytosis- worsening- monitor and follow Test for c diff Sips of clears to see if tolerates Try to increase activity Cardizem drip IV metoprolol ICU required Cardiology Supportive care TPN K replacement Encourage pt to ambulate and use IS HEENA BERRY DO Sep 15, 2022 22:31
[2022-09-16] MEDS: RT-ALBUTEROL SULF 2.5 MG/3 ML PRE-MIX VIAL INH SCH ×3 (02:34→21:21)
[2022-09-16] MEDS: METOCLOPRAMIDE INJ 10 MG/2 ML (REGLAN) IVP SCH ×4 (02:39→20:18)
[2022-09-16] MEDS: meTOprolol 5 MG/5 ML (LOPRESSOR) VIAL IV SCH ×8 (03:15→23:33)
[2022-09-16 04:08] LABS: BASOPHILS # (AUTO) 0.1 10^3/uL (0.0-0.1); BASOPHILS % (AUTO) 0 % (0-10); EOSINOPHILS % (AUTO) 0 % (0-10); HEMATOCRIT 35 % (40-54); HEMOGLOBIN 11.6 g/dL (13.3-17.7); LYMPHOCYTES # (AUTO) 1.3 10^3/uL (1.0-4.0); LYMPHOCYTES % (AUTO) 6 % (12-44); MEAN CORPUSCULAR HEMOGLOBIN 31 pg (25-34); MEAN CORPUSCULAR HGB CONC 33 g/dL (32-36); MEAN CORPUSCULAR VOLUME 94 fL (80-99); MEAN PLATELET VOLUME 11.4 fL (9.0-12.2); MONOCYTES # (AUTO) 1.3 10^3/uL (0.0-1.0); MONOCYTES % (AUTO) 6 % (0-12); NEUTROPHILS % (AUTO) 84 % (42-75); PLATELET COUNT 296 10^3/uL (130-400); WHITE BLOOD COUNT 21.3 10^3/uL (4.3-11.0)
[2022-09-16 05:17] LABS: ALBUMIN 2.6 GM/DL (3.2-4.5); BILIRUBIN,TOTAL 0.5 MG/DL (0.1-1.0); CALCIUM 7.8 MG/DL (8.5-10.1); CREATININE SERUM 0.77 MG/DL (0.60-1.30); MAGNESIUM 1.9 MG/DL (1.6-2.4); TOTAL PROTEIN 4.8 GM/DL (6.4-8.2)
[2022-09-16] MEDS: POTASSIUM CL 10MEQ/50ML IVPB 50 ML IV SCH ×4 (06:09→07:46)
[2022-09-16] MEDS: MAGNESIUM 1 GM/100 ML IVPB 100 ML IV SCH (07:08)
[2022-09-16] MEDS: KCL 20 MEQ TAB (K-DUR) PO SCH (07:08)
--- NOTE | 2022-09-16 07:21 | Progress Note ---
Subjective Date Seen by a Provider: Sep 16, 2022 Time Seen by a Provider: 10:00 Subjective/Events-last exam Much improved status Looks better Feels better AF still an issue CLD maintained Review of Systems Pulmonary: Dyspnea Gastrointestinal: Abdominal Pain Objective Exam Last Set of Vital Signs Vital Signs Date Time Temp Pulse Resp B/P (MAP) Pulse Ox O2 Delivery O2 Flow Rate FiO2 09/16/22 06:00 123 15 170/95 (120) 95 Nasal Cannula 2.00 09/15/22 19:53 36.3 09/12/22 16:30 96 Capillary Refill : Less Than 3 SecondsLess Than 3 Seconds I&O Intake and Output 09/16/22 00:00 Intake Total 865 ml Output Total 50 ml Balance 815 ml Intake Oral 740 ml IV Total 125 ml Gastric Drainage Total 50 ml # Voids 9 # Bowel Movements 9 General: Alert, Oriented X3, Cooperative, No Acute Distress Lungs: Normal Air Movement, Other (coarse) Psych/Mental Status: Mental Status NL Results Lab Laboratory Tests 09/15/22 17:00: Sodium Level 141, Potassium Level 3.1L, Chloride Level 108H, Carbon Dioxide Level 23, Anion Gap 10, Blood Urea Nitrogen 20H, Creatinine 0.88, Estimat Glomerular Filtration Rate 84, BUN/Creatinine Ratio 23, Glucose Level 134H, Calcium Level 8.0L 09/16/22 03:45: White Blood Count 21.3H, Red Blood Count 3.74L, Hemoglobin 11.6L, Hematocrit 35L , Mean Corpuscular Volume 94, Mean Corpuscular Hemoglobin 31, Mean Corpuscular Hemoglobin Concent 33, Red Cell Distribution Width 14.9H, Platelet Count 296, Mean Platelet Volume 11.4, Immature Granulocyte % (Auto) 3, Neutrophils (%) (Auto) 84H, Lymphocytes (%) (Auto) 6L, Monocytes (%) (Auto) 6, Eosinophils (%) (Auto) 0, Basophils (%) (Auto) 0, Neutrophils # (Auto) 18.0H, Lymphocytes # (Auto) 1.3, Monocytes # (Auto) 1.3H, Eosinophils # (Auto) 0.0, Basophils # (Auto) 0.1, Immature Granulocyte # (Auto) 0.7H 09/16/22 04:45: Sodium Level 139, Potassium Level 3.0L, Chloride Level 110H, Carbon Dioxide Level 22, Anion Gap 7, Blood Urea Nitrogen 18, Creatinine 0.77, Estimat Glomerular Filtration Rate 88, BUN/Creatinine Ratio 23, Glucose Level 170H, Calcium Level 7.8L, Corrected Calcium 8.9, Magnesium Level 1.9, Total Bilirubin 0.5, Aspartate Amino Transf (AST/SGOT) 59H, Alanine Aminotransferase (ALT/SGPT) 52, Alkaline Phosphatase 67, Total Protein 4.8L, Albumin 2.6L Microbiology 09/15/22 C. difficile GDH Antigen & Toxins - Final, Complete Assessment/Plan Assessment/Plan Assess & Plan/Chief Complaint Continue supportive care Very complicated case Assessment: Acute cholecystitischolecystectomy postop day #9 Postop ileus on 09/09/2022-resolved then recurred-took out his NG tube last night by mistake Prabhu rivera with RVR maintained on cardizem drip History of chronic atrial fibrillation CHF Hypertension CAD Status post cardiac arrest at home March 2022 Hypokalemia Leukocytosis Plan: Cardizem drip IV metoprolol ICU required Cardiology Supportive care TPN K replacement Encourage pt to ambulate to chair and use IS Remain in ICU d/t heart rate KAREN JJ DO Sep 16, 2022 07:21
[2022-09-16] MEDS: DIGOXIN 0.125 MG (LANOXIN) TAB PO SCH (08:12)
[2022-09-16] MEDS: meTOprolol TARTRATE 25 MG (LOPRESSOR) TABLET PO SCH ×2 (08:12→20:19)
[2022-09-16] MEDS: PANTOPRAZOLE 40 MG (PROTONIX) VIAL IV SCH (08:12)
[2022-09-16] MEDS: DOCUSATE SODIUM 100 MG (COLACE) CAP PO SCH ×2 (09:17→20:19)
[2022-09-16] MEDS: SENNOSIDES 8.6 MG (SENOKOT) TAB PO SCH ×2 (09:17→20:18)
--- NOTE | 2022-09-16 09:17 | Progress Note - Surgery ---
Subjective Date Seen by a Provider: Sep 16, 2022 Time Seen by a Provider: 09:17 Subjective/Events-last exam Feeling better today than yesterday. Having flatus. Tolerating clears. WBC coming down. No n/v. Denies fever sweats chills shortness of breath or chest pain. Objective Exam Vital Signs Date Time Temp Pulse Resp B/P (MAP) Pulse Ox O2 Delivery O2 Flow Rate FiO2 09/16/22 09:16 75 21 149/82 (104) 95 Room Air 09/16/22 08:00 36.5 09/16/22 08:00 125 21 152/107 (122) 100 Nasal Cannula 2.00 09/16/22 07:00 121 21 146/98 (114) 90 Nasal Cannula 2.00 09/16/22 07:00 121 09/16/22 06:00 123 15 170/95 (120) 95 Nasal Cannula 2.00 09/16/22 05:00 73 21 142/95 (111) 89 Nasal Cannula 2.00 09/16/22 04:12 79 134/72 09/16/22 04:00 96 Nasal Cannula 2.00 09/16/22 04:00 79 21 134/48 (76) 94 Nasal Cannula 2.00 09/16/22 03:00 86 20 134/72 (92) 97 Nasal Cannula 2.00 09/16/22 02:00 79 19 134/72 (92) 97 Nasal Cannula 2.00 09/16/22 01:00 80 09/16/22 01:00 62 23 130/73 (92) 98 Nasal Cannula 2.00 09/16/22 00:00 61 21 130/70 (90) 97 Nasal Cannula 2.00 09/15/22 23:59 96 Nasal Cannula 2.00 09/15/22 23:00 123 22 133/90 (104) 97 Nasal Cannula 2.00 09/15/22 22:00 124 21 131/89 (103) 98 Nasal Cannula 2.00 09/15/22 21:00 123 132/97 (109) 97 Nasal Cannula 2.00 09/15/22 20:51 123 160/91 09/15/22 20:42 96 Nasal Cannula 2.00 09/15/22 20:00 96 Nasal Cannula 2.00 09/15/22 20:00 124 146/85 (105) 96 Nasal Cannula 2.00 09/15/22 19:53 36.3 09/15/22 19:00 125 149/91 (110) 99 Nasal Cannula 2.00 09/15/22 19:00 132 09/15/22 18:00 123 160/91 (114) 95 Nasal Cannula 2.00 09/15/22 17:19 125 128/86 09/15/22 17:00 125 128/86 (100) Nasal Cannula 2.00 09/15/22 16:00 123 163/91 (115) Nasal Cannula 2.00 09/15/22 16:00 96 Nasal Cannula 2.00 09/15/22 16:00 37.4 09/15/22 15:00 124 137/97 (110) Nasal Cannula 2.00 09/15/22 14:52 Nasal Cannula 2.00 09/15/22 14:00 86 157/79 (105) Nasal Cannula 2.00 09/15/22 13:00 73 151/88 (109) 90 Nasal Cannula 2.00 09/15/22 12:34 73 09/15/22 12:00 96 Nasal Cannula 2.00 09/15/22 12:00 36.2 09/15/22 12:00 61 144/78 (100) 99 Nasal Cannula 2.00 09/15/22 11:00 61 137/79 (98) 99 Nasal Cannula 2.00 09/15/22 10:00 61 131/73 (92) 97 Nasal Cannula 2.00 09/15/22 09:56 124 141/89 I & O 09/16/22 06:59 Intake Total 1040 ml Balance 1040 ml Capillary Refill : Less Than 3 SecondsLess Than 3 Seconds General Appearance: No Apparent Distress, Chronically ill, Obese HEENT: PERRL/EOMI, Normal ENT Inspection Neck: Non Tender, Supple Respiratory: Chest Non Tender, No Accessory Muscle Use, No Respiratory Distress, Crackles (B/L mid to base), Wheezing (expiratory B/L) Cardiovascular: Irregularly Irregular, Tachycardia Peripheral Pulses: 2+ Dorsalis Pedis (R), 2+ Left Dors-Pedis (L) Gastrointestinal: abnormal bowel sounds, distended (same to slightly less, serosang drainage from umbilicus) Extremity: No Calf Tenderness, No Pedal Edema, Pedal Edema (+1 ankle edema) Neurologic/Psychiatric: Alert, Normal Mood/Affect Skin: Normal Color, Warm/Dry Lymphatic: No Adenopathy Results Lab Laboratory Tests 09/15/22 17:00: Sodium Level 141, Potassium Level 3.1L, Chloride Level 108H, Carbon Dioxide Level 23, Anion Gap 10, Blood Urea Nitrogen 20H, Creatinine 0.88, Estimat Glomerular Filtration Rate 84, BUN/Creatinine Ratio 23, Glucose Level 134H, Calcium Level 8.0L 09/16/22 03:45: White Blood Count 21.3H, Red Blood Count 3.74L, Hemoglobin 11.6L, Hematocrit 35L , Mean Corpuscular Volume 94, Mean Corpuscular Hemoglobin 31, Mean Corpuscular Hemoglobin Concent 33, Red Cell Distribution Width 14.9H, Platelet Count 296, Mean Platelet Volume 11.4, Immature Granulocyte % (Auto) 3, Neutrophils (%) (Auto) 84H, Lymphocytes (%) (Auto) 6L, Monocytes (%) (Auto) 6, Eosinophils (%) (Auto) 0, Basophils (%) (Auto) 0, Neutrophils # (Auto) 18.0H, Lymphocytes # (Auto) 1.3, Monocytes # (Auto) 1.3H, Eosinophils # (Auto) 0.0, Basophils # (Auto) 0.1, Immature Granulocyte # (Auto) 0.7H 09/16/22 04:45: Sodium Level 139, Potassium Level 3.0L, Chloride Level 110H, Carbon Dioxide Level 22, Anion Gap 7, Blood Urea Nitrogen 18, Creatinine 0.77, Estimat Glomerular Filtration Rate 88, BUN/Creatinine Ratio 23, Glucose Level 170H, Calcium Level 7.8L, Corrected Calcium 8.9, Magnesium Level 1.9, Total Bilirubin 0.5, Aspartate Amino Transf (AST/SGOT) 59H, Alanine Aminotransferase (ALT/SGPT) 52, Alkaline Phosphatase 67, Total Protein 4.8L, Albumin 2.6L Microbiology 09/15/22 C. difficile GDH Antigen & Toxins - Final, Complete Assessment/Plan Assessment/Plan Assessment/Plan Acute cholecystitischolecystectomy and umbilical hernia repair Postop ileus on 09/09/2022-resolved then recurred-took out his NG tube last night by mistake Prabhu rivera with RVR maintained on cardizem drip History of chronic atrial fibrillation CHF Hypertension CAD Status post cardiac arrest at home March 2022 Hypokalemia Leukocytosis- worsening- monitor and follow clears to see if tolerates Try to increase activity Cardizem drip IV metoprolol Cardiology Supportive care TPN K replacement Encourage pt to ambulate and use IS HEENA BERRY DO Sep 16, 2022 09:17
[2022-09-16] MEDS: BISACODYL 10 MG SUPP (DULCOLAX) PR SCH (09:18)
--- NOTE | 2022-09-16 09:43 | Tele-ICU Progress Note ---
Subjective Date Seen by a Provider: Sep 16, 2022 Time Seen by a Provider: 09:33 Subjective/Events-last exam (Tele-ICU Physician , Progress note) Available chart/ vitals / labs / Images reviewed H&P is from ER notes Patient's information available about PMH, allergy reviewed in EMR. ROS as per chart and RN report Video assessment done using teleICU camera, rest of exam as per RN Discussed with RN. This patient admitted with acute cholecystitis and underwent laparoscopic cholecystectomy and umbilical hernia repair on 09/07/2022. Currently he is on a nasal cannula. He additionally has a atrial fibrillation with rapid ventricular rate which is being controlled with the diltiazem drip. He is receiving cefepime and Flagyl for antibiotic coverage. He is currently out of bed to chair postoperative respiratory failure improved currently on a nasal cannula. Per MUSIC SOUND LIGHT TECHNICIAN patient has a coarse breath sounds and wheezing. Apparently he is passing gas and has a mucousy bowel movements. Today we have done a chest x-ray which showed low lung volumes with bilateral basilar subsegmental atelectasis. Today his white count went up. 09/16/22 sitting OOB TO CHAIR. HR controlled with cardiazem drip.Had bm. BS present per RN. ABD. distension decreased and belly soft per RN. WBC down trending. Impression 1. Acute cholecystectomy status post laparoscopic cholecystectomy and umbilical hernia repair on 09/07/2022 kub showing SBO vs ileus. s/p ngt insertion and pt pulled out reportedly yesterday. Ambulated 300 feet with PT per RN 2. Atrial fibrillation with rapid ventricular rate. Continue IV Cardizem drip. Sales Account Specialist following the patient 3. COPD exacerbation. Continue bronchodilator therapy. 4. Stroke prevention and DVT prevention with full dose anticoagulation with Lovenox. 5. Pain management per the general surgeon. 6. Will repeat kub in AM. Plans of treatment for consultants and bedside IM MDs. Sepsis Event Evaluation Height, Weight, BMI Height: 5'8.00" Weight: 185lbs. 0.0oz. [id number]; 28.44 BMI Method:Stated Exam Exam Patient acknowledged, consented, and participated in this virtual visit which was conducted using real time audio/video Vital Signs Date Time Temp Pulse Resp B/P (MAP) Pulse Ox O2 Delivery O2 Flow Rate FiO2 09/16/22 09:16 75 21 149/82 (104) 95 Room Air 09/16/22 08:00 36.5 09/16/22 08:00 125 21 152/107 (122) 100 Nasal Cannula 2.00 09/16/22 07:00 121 21 146/98 (114) 90 Nasal Cannula 2.00 09/16/22 07:00 121 09/16/22 06:00 123 15 170/95 (120) 95 Nasal Cannula 2.00 09/16/22 05:00 73 21 142/95 (111) 89 Nasal Cannula 2.00 09/16/22 04:12 79 134/72 09/16/22 04:00 96 Nasal Cannula 2.00 09/16/22 04:00 79 21 134/48 (76) 94 Nasal Cannula 2.00 09/16/22 03:00 86 20 134/72 (92) 97 Nasal Cannula 2.00 09/16/22 02:00 79 19 134/72 (92) 97 Nasal Cannula 2.00 09/16/22 01:00 80 09/16/22 01:00 62 23 130/73 (92) 98 Nasal Cannula 2.00 09/16/22 00:00 61 21 130/70 (90) 97 Nasal Cannula 2.00 09/15/22 23:59 96 Nasal Cannula 2.00 09/15/22 23:00 123 22 133/90 (104) 97 Nasal Cannula 2.00 09/15/22 22:00 124 21 131/89 (103) 98 Nasal Cannula 2.00 09/15/22 21:00 123 132/97 (109) 97 Nasal Cannula 2.00 09/15/22 20:51 123 160/91 09/15/22 20:42 96 Nasal Cannula 2.00 09/15/22 20:00 96 Nasal Cannula 2.00 09/15/22 20:00 124 146/85 (105) 96 Nasal Cannula 2.00 09/15/22 19:53 36.3 09/15/22 19:00 125 149/91 (110) 99 Nasal Cannula 2.00 09/15/22 19:00 132 09/15/22 18:00 123 160/91 (114) 95 Nasal Cannula 2.00 09/15/22 17:19 125 128/86 09/15/22 17:00 125 128/86 (100) Nasal Cannula 2.00 09/15/22 16:00 123 163/91 (115) Nasal Cannula 2.00 09/15/22 16:00 96 Nasal Cannula 2.00 09/15/22 16:00 37.4 09/15/22 15:00 124 137/97 (110) Nasal Cannula 2.00 09/15/22 14:52 Nasal Cannula 2.00 09/15/22 14:00 86 157/79 (105) Nasal Cannula 2.00 09/15/22 13:00 73 151/88 (109) 90 Nasal Cannula 2.00 09/15/22 12:34 73 09/15/22 12:00 96 Nasal Cannula 2.00 09/15/22 12:00 36.2 09/15/22 12:00 61 144/78 (100) 99 Nasal Cannula 2.00 09/15/22 11:00 61 137/79 (98) 99 Nasal Cannula 2.00 09/15/22 10:00 61 131/73 (92) 97 Nasal Cannula 2.00 09/15/22 09:56 124 141/89 I & O 09/16/22 07:00 Intake Total 1040 ml Balance 1040 ml Height & Weight Height: 5'8.00" Weight: 185lbs. 0.0oz. [id number]; 28.44 BMI Method:Stated General Appearance: No Apparent Distress, Chronically ill, Obese HEENT: PERRL/EOMI Neck: Non Tender, Supple Respiratory: Chest Non Tender, No Respiratory Distress, Accessory Muscle Use, Crackles (B/L mid to base), Wheezing (expiratory B/L) Cardiovascular: Irregularly Irregular, Tachycardia Capillary Refill: Less Than 3 Seconds Peripheral Pulses: 2+ Dorsalis Pedis (R), 2+ Left Dors-Pedis (L) Gastrointestinal: abnormal bowel sounds, distended (same to slightly less), other (slight serosang drainage from umbilical incision site does not look infected) Extremity: No Calf Tenderness, No Pedal Edema, Pedal Edema (+1 ankle edema) Neurologic/Psychiatric: Alert Skin: Normal Color, Warm/Dry Lymphatic: No Adenopathy Other comments PE PER RN Results Lab Laboratory Tests 09/15/22 04:45 09/15/22 17:00 09/16/22 03:45 09/16/22 04:45 Assessment/Plan Assessment/Plan ABOVE Critical Care: Critically Ill Patient Time spent with patient (mins): 20 LYNNE MIN MD Sep 16, 2022 09:43
--- NOTE | 2022-09-16 10:43 | Physical Therapy Daily Note ---
PT Daily Note-Current Subjective Patient reports he is feeling better today. Agrees to PT. Pain Section J - Health Conditions 1. Rarely or not at all 2. Occasionally 3. Frequently 4. Almost constantly 8. Unable to answer Pain Effect on Sleep: 1 Pain Interference with Therapy: 1 Pain Interference w/Day-to-Day: 1 Mental Status Patient Orientation: Normal For Age Attachments: IV Transfers SCALE: Activities may be completed with or without assistive devices. 3-Qwqkkrcjbr-dqzrlkd completes the activity by him/herself with no assistance from a helper. 5-Set-up or Clean-up Assistance-helper sets up or cleans up; patient completes activity. [place] assists only prior to or following the activity. 4-Supervision or Touching Assistance-helper provides verbal cues and/or touching/steadying and/or contact guard assistance as patient completes activity. Assistance may be provided throughout the activity or intermittently. 3-Partial/Moderate Assistance-helper does LESS THAN HALF the effort. [place] lifts, holds or supports trunk or limbs, but provides less than half the effort. 2-Substantial/Maximal Assistance-helper does MORE THAN HALF the effort. [place] lifts or holds trunk or limbs and provides more than half the effort. 6-Huxxduenx-fqtwsx does ALL the effort. Patient does none of the effort to complete the activity. Or, the assistance of 2 or more helpers is required for the patient to complete the activity. If activity was not attempted, code reason: 7-Patient Refused. 9-Not Applicable-not attempted and the patient did not perform the activity bef ore the current illness, exacerbation or injury. 10-Not Attempted due to Environmental Limitations-(lack of equipment, weather r estraints, etc.). 88-Not Attempted due to Medical Conditions or Safety Concerns. Lying to Sitting/Side of Bed(Q: 6 Sit to Stand (QC): 5 Chair/Bhx-as-Mqjsv Xfer(QC): 5 Toilet Transfer (QC): 5 (assist with cleansing after BM) Weight Bearing Right Lower Extremity: Right Weight Bearing/Tolerated Left Lower Extremity: Left Weight Bearing/Tolerated Gait Training Distance: 300' Walk 10 feet (QC): 5 Walk 50 ft with 2 Turns(QC): 5 Walk 150 ft (QC): 5 Gait Assistive Device: FWW safe and functional with no deviation Exercises Seated Therapy Exercises: Ankle pumps, Long arc quads Seated Reps: 15 Assessment Patient improving with treatment plan and is up in recliner with needs met. PT to increase activity as tolerated by patient. PT Senior Audit Manager Goals Senior Audit Manager Goals PT Care Home Goals Time Frame: Sep 28, 2022 Roll Left & Right (QC): 6 Sit to Lying (QC): 6 Lying-Sitting on Side/Bed(QC): 6 Sit to Stand (QC): 6 Chair/Jdl-wg-Atqym Xfer(QC): 6 Toilet Transfer (QC): 6 Walk 10 feet (QC): 6 Walk 50ft with 2 Turns (QC): 6 Walk 150 ft (QC): 6 PT Plan Treatment/Plan Treatment Plan: Continue Plan of Care Treatment Plan: Bed Mobility, Education, Functional Activity Roro, Functional Strength, Gait, Safety, Therapeutic Exercise, Transfers Treatment Duration: Sep 28, 2022 Frequency: 6 times per week Estimated Hrs Per Day: .25 hour per day Patient and/or Family Agrees t: Yes Time Time In: 810 Time Out: 835 DATE: Sep 16, 2022 Total Billed Treatment Time: 25 Total Billed Treatment 1 visit FA x 2 25 min VENUS CHAPA PT Sep 16, 2022 10:43
--- NOTE | 2022-09-16 11:24 | Cardiology Progress Note ---
Subjective Date Seen by Provider: Sep 16, 2022 Time Seen by Provider: 11:23 Subjective/Events-last exam Patient was seen at bedside, sitting in a chair, feeling better, had diarrhea last night Review of Systems General: No Chills, No Night Sweats; Fatigue; No Malaise, No Appetite, No Other HEENT: No Head Aches, No Visual Changes, No Eye Pain, No Ear Pain, No Dysphasi a, No Sinus Congestion, No Post Nasal Drip, No Sore Throat, No Other Pulmonary: No Dyspnea, No Cough, No Pleuritic Chest Pain, No Other Cardiovascular: No: Chest Pain, Palpitations, Orthopnea, Paroxysmal Noc. Dyspnea, Edema, Lt Headedness, Other Objective-Cardiology Exam Last Set of Vital Signs Vital Signs 09/12/22 09/16/22 09/16/22 16:30 08:35 11:00 Pulse 73 Resp 19 B/P (MAP) 146/80 (102) Pulse Ox 94 O2 Delivery Room Air O2 Flow Rate 2.00 FiO2 96 I&O Intake and Output 09/16/22 00:00 Intake Total 865 ml Output Total 50 ml Balance 815 ml Intake Oral 740 ml IV Total 125 ml Gastric Drainage Total 50 ml # Voids 9 # Bowel Movements 9 General: Alert, Oriented X3, Cooperative, No Acute Distress, Other (Chronically ill) HEENT: Atraumatic, PERRLA, EOMI, Mucous Memb Moist/[place] Neck: Supple, No JVD Lungs: Other (Coarseness throughout all vaughan) Heart: Normal S1, Normal S2, Other (Irregular regular heart rate 69) Abdomen: Other (Decreased bowel sounds) Extremities: No Edema, Normal Pulses Skin: No Rashes, No Significant Lesion Neuro: Normal Speech, Strength at 5/5 X4 Ext, Normal Tone Psych/Mental Status: Mental Status NL, Other (Depressed affect) Results Lab Laboratory Tests 09/15/22 17:00 09/16/22 03:45 09/16/22 04:45 A/P-Cardiology Admission Diagnosis Acute cholecystitis Coronary artery disease Permanent atrial fibrillation Hypertension Assessment/Plan Status post acute respiratory failure postoperatively on September 07, 2022 required BiPAP. Still having distended abdomen, active bowel sounds. Increase in WBC, having diarrhea. Stool for C. difficile was negative. Maintained on cefepime and metronidazole Managed by medical team Acute cholecystitis, status postcholecystectomy done on September 07, 2022. Postop ileus. Slow improvement Atrial fibrillation/atrial flutter, heart rate is better controlled. History of permanent atrial fibrillation. Cannot tolerate oral medication due to postoperative ileus. Continue with Cardizem drip, Lopressor IV, Digoxin IV and Lovenox, Currently on Lovenox, Eliquis is on hold Status post acute congestive heart failure with fluid overload postoperatively, history of congestive heart failure with chronic compensated left ventricular diastolic dysfunction 2D echo was done in March 2022 with normal left ventricular systolic function ejection fraction 60 to 65% with dilated left atrium and pulmonary hypertension with PA pressure 40 to 45 mmHg Coronary artery disease, history of non-ST elevation myocardial infarction in March 2022 - Cardiac cath of 07-14-18: 90% qqg-yv-bwyolw vessel stenosis of the left anterior descending artery within a small caliber vessel to which balloon angioplasty was carried out which reduced the stenosis to less than 50%. The rest of the coronary vessels have moderate diffuse disease. There is a patent stent in the right coronary with a 50% in-stent restenosis (unchanged compared to previous study). Elevated left ventricular end-diastolic pressure. - MPI of 12/07/19: no ischemia or infarction, LVEF 48% (appeared to be higher, subjectively) - Card cath on 03/25/22: 90-85 prox and mid LAD stenosis treated with PTCA and then 2.25 x 23 mm GABRIELA, distal LAD, distal LCX, and prox RI have severe disease that is not amenable to intervention, RCA is dominant with patent prox stent with up to 50 instent and distal RCA with up to 50 stenoses, LVEDP 22 mmHg Has been maintained on aspirin and Plavix last taken on September 05, 2022. I will hold Plavix due to active oozing from the surgical site Continue on Lovenox History of syncope and collapse reported pulseless per family on March 24, 2022. Had chest compression Loop monitor implanted on March 26, 2022. History of rib fractures after chest compression Hypertension, continue to monitor blood pressure Hyperlipidemia, maintained on statin. Currently on hold History of umbilical hernia. Questionable underlying sleep apnea Lumbar spondylosis and spinal stenosis, followed by IAN Fontaine MD Sep 16, 2022 11:24
[2022-09-16] MEDS: ENOXAPARIN 100 MG/1 ML (LOVENOX) SYR SC SCH ×2 (11:53→23:33)
[2022-09-16] MEDS: D5W 1000 ML IV SOLUTION 1,000 ML IV SCH (13:15)
[2022-09-16 15:48] VITALS: BP 139/71
[2022-09-16] MEDS: TRACE ELEMENTS IV SCH ×9 (16:58)
[2022-09-16] MEDS: [UNRECOGNIZED DRUG - OTHER] IV SCH ×9 (16:58)
[2022-09-16] MEDS: POTASSIUM PHOSPHATE IV SCH ×9 (16:58)
[2022-09-16] MEDS: VITAMIN MULTI IV SCH ×9 (16:58)
[2022-09-17] MEDS: meTOprolol 5 MG/5 ML (LOPRESSOR) VIAL IV SCH ×8 (02:51→23:53)
[2022-09-17] MEDS: METOCLOPRAMIDE INJ 10 MG/2 ML (REGLAN) IVP SCH ×4 (02:51→20:40)
[2022-09-17 03:21] LABS: BASOPHILS # (AUTO) 0.1 10^3/uL (0.0-0.1); BASOPHILS % (AUTO) 0 % (0-10); EOSINOPHILS # (AUTO) 0.1 10^3/uL (0.0-0.3); EOSINOPHILS % (AUTO) 0 % (0-10); HEMATOCRIT 33 % (40-54); LYMPHOCYTES # (AUTO) 1.3 10^3/uL (1.0-4.0); LYMPHOCYTES % (AUTO) 7 % (12-44); MEAN CORPUSCULAR HEMOGLOBIN 30 pg (25-34); MEAN CORPUSCULAR HGB CONC 33 g/dL (32-36); MEAN CORPUSCULAR VOLUME 91 fL (80-99); MEAN PLATELET VOLUME 11.6 fL (9.0-12.2); MONOCYTES # (AUTO) 1.2 10^3/uL (0.0-1.0); MONOCYTES % (AUTO) 6 % (0-12); NEUTROPHILS # (AUTO) 15.4 10^3/uL (1.8-7.8); NEUTROPHILS % (AUTO) 82 % (42-75); PLATELET COUNT 295 10^3/uL (130-400); WHITE BLOOD COUNT 18.8 10^3/uL (4.3-11.0)
[2022-09-17 03:35] LABS: ALBUMIN 2.5 GM/DL (3.2-4.5); POTASSIUM 3.5 MMOL/L (3.6-5.0)
[2022-09-17 03:36] LABS: CALCIUM 7.7 MG/DL (8.5-10.1)
[2022-09-17 03:38] LABS: TOTAL PROTEIN 4.8 GM/DL (6.4-8.2)
[2022-09-17 03:39] LABS: BILIRUBIN,TOTAL 0.5 MG/DL (0.1-1.0)
[2022-09-17 03:41] LABS: CREATININE SERUM 0.7 MG/DL (0.60-1.30); PHOSPHORUS 1.6 MG/DL (2.3-4.7)
[2022-09-17 03:44] LABS: MAGNESIUM 1.8 MG/DL (1.6-2.4)
[2022-09-17] MEDS: POTASSIUM CL 10MEQ/50ML IVPB 50 ML IV SCH ×3 (04:08→05:05)
[2022-09-17] MEDS: MAGNESIUM 1 GM/100 ML IVPB 100 ML IV SCH (04:10)
[2022-09-17] MEDS: KCL 20 MEQ TAB (K-DUR) PO SCH (04:10)
[2022-09-17] MEDS: inSUlin ASPART (NovoLOG) 1 UNIT/0.01 ML (CHARGE PER UNIT) SC SCH ×4 (04:46→20:52)
[2022-09-17] MEDS: PANTOPRAZOLE 40 MG (PROTONIX) VIAL IV SCH (08:14)
[2022-09-17] MEDS: DIGOXIN 0.125 MG (LANOXIN) TAB PO SCH (08:15)
[2022-09-17] MEDS: meTOprolol TARTRATE 25 MG (LOPRESSOR) TABLET PO SCH ×2 (08:15→20:40)
[2022-09-17] MEDS: BISACODYL 10 MG SUPP (DULCOLAX) PR SCH (08:24)
[2022-09-17] MEDS: SENNOSIDES 8.6 MG (SENOKOT) TAB PO SCH ×2 (08:24→20:40)
[2022-09-17] MEDS: DOCUSATE SODIUM 100 MG (COLACE) CAP PO SCH ×2 (08:24→20:40)
--- NOTE | 2022-09-17 08:28 | Tele-ICU Progress Note ---
Subjective Date Seen by a Provider: Sep 17, 2022 Time Seen by a Provider: 12:17 Subjective/Events-last exam (Tele-ICU Physician , Progress note) Available chart/ vitals / labs / Images reviewed H&P is from ER notes Patient's information available about PMH, allergy reviewed in EMR. ROS as per chart and RN report Video assessment done using teleICU camera, rest of exam as per RN Discussed with RN. This patient admitted with acute cholecystitis and underwent laparoscopic cholecystectomy and umbilical hernia repair on 09/07/2022. Currently he is on a nasal cannula. He additionally has a atrial fibrillation with rapid ventricular rate which is being controlled with the diltiazem drip. He is receiving cefepime and Flagyl for antibiotic coverage. He is currently out of bed to chair postoperative respiratory failure improved currently on a nasal cannula. Per PLASTER MACHINE TENDER patient has a coarse breath sounds and wheezing. Apparently he is passing gas and has a mucousy bowel movements. Today we have done a chest x-ray which showed low lung volumes with bilateral basilar subsegmental atelectasis. Today his white count went up. 09/16/22 sitting OOB TO CHAIR. HR controlled with cardiazem drip.Had bm. BS present per RN. ABD. distension decreased and belly soft per RN. WBC down trending. 09/17/22 last night had 3 bms, abdominal distension improving and feeling better per patient. Still HR 120's. started on po cardiazem in addition to iv. also getting iv lopressor per cardiology. Awaiting kub x=ray Impression 1. Acute cholecystectomy status post laparoscopic cholecystectomy and umbilical hernia repair on 09/07/2022 kub showing SBO vs ileus. s/p ngt insertion and pt pulled out 2 days ago. to lerating CL ok 2. Atrial fibrillation with rapid ventricular rate. Continue IV Cardizem drip. Ladle Car Operator following the patient 3. COPD exacerbation. Continue bronchodilator therapy. 4. Stroke prevention and DVT prevention with full dose anticoagulation with Lovenox. 5. Pain management per the general surgeon. 6. Will Await KUB xray report today. Plans of treatment for consultants and bedside IM MDs. Sepsis Event Evaluation Height, Weight, BMI Height: 5'8.00" Weight: 185lbs. 0.0oz. 83.260881sv; 28.83 BMI Method:Stated Exam Exam Patient acknowledged, consented, and participated in this virtual visit which was conducted using real time audio/video Vital Signs Date Time Temp Pulse Resp B/P (MAP) Pulse Ox O2 Delivery O2 Flow Rate FiO2 09/17/22 07:25 126 09/17/22 07:22 36.3 09/17/22 06:00 107 18 150/96 (114) 93 Nasal Cannula 2.00 09/17/22 05:30 89 21 151/98 (115) 93 Nasal Cannula 2.00 09/17/22 04:15 122 19 148/99 (115) 95 Nasal Cannula 2.00 09/17/22 03:50 95 Nasal Cannula 2.00 09/17/22 03:50 36.9 Nasal Cannula 2.00 09/17/22 03:00 74 19 132/67 (88) 95 Nasal Cannula 2.00 09/17/22 02:00 75 17 128/65 (86) 95 Nasal Cannula 2.00 09/17/22 01:28 75 161/71 09/17/22 01:00 97 20 147/77 (100) 96 Nasal Cannula 2.00 09/17/22 01:00 97 09/17/22 00:00 87 20 151/88 (109) 93 Nasal Cannula 2.00 09/16/22 23:30 36.7 122 21 145/94 (111) 95 Nasal Cannula 2.00 09/16/22 23:30 94 Nasal Cannula 2.00 09/16/22 23:00 122 28 166/98 (120) 94 Nasal Cannula 2.00 09/16/22 22:00 96 19 138/76 (96) 94 Nasal Cannula 2.00 09/16/22 21:21 95 Nasal Cannula 2.00 09/16/22 21:00 97 19 148/95 (112) 94 Nasal Cannula 2.00 09/16/22 20:39 Nasal Cannula 2.00 09/16/22 20:00 36.5 94 22 159/93 (115) 95 Room Air 09/16/22 20:00 95 Room Air 09/16/22 19:49 36.7 09/16/22 19:00 70 09/16/22 19:00 70 150/93 (112) 95 Room Air 09/16/22 18:00 126 18 179/96 (123) 95 Room Air 09/16/22 17:00 70 23 160/110 (127) 94 Room Air 09/16/22 16:21 95 Room Air 09/16/22 16:13 36.5 09/16/22 16:00 75 21 153/79 (103) 95 Room Air 09/16/22 15:48 36.8 62 97 28 09/16/22 15:30 85 21 130/85 (100) Room Air 09/16/22 14:00 62 20 139/71 (93) 97 Room Air 09/16/22 13:18 61 141/79 09/16/22 13:00 73 26 141/79 (99) 92 Room Air 09/16/22 12:20 76 09/16/22 12:15 95 Room Air 09/16/22 12:00 123 18 143/84 (103) 95 Room Air 09/16/22 11:58 36.8 09/16/22 11:00 73 19 146/80 (102) 94 Room Air 09/16/22 10:00 76 22 156/83 (107) 94 Room Air 09/16/22 09:16 75 21 149/82 (104) 95 Room Air 09/16/22 08:35 96 Nasal Cannula 2.00 I & O 09/17/22 07:00 Intake Total 860 ml Output Total 300 ml Balance 560 ml Height & Weight Height: 5'8.00" Weight: 185lbs. 0.0oz. 83.853443ew; 28.83 BMI Method:Stated General Appearance: No Apparent Distress, Chronically ill, Obese HEENT: PERRL/EOMI Neck: Non Tender, Supple Respiratory: Chest Non Tender, No Respiratory Distress, Accessory Muscle Use, Crackles (B/L mid to base), Wheezing (expiratory B/L) Cardiovascular: Irregularly Irregular, Tachycardia Capillary Refill: Less Than 3 Seconds Peripheral Pulses: 2+ Dorsalis Pedis (R), 2+ Left Dors-Pedis (L) Gastrointestinal: abnormal bowel sounds, distended (same to slightly less), other (slight serosang drainage from umbilical incision site does not look infected) Extremity: No Calf Tenderness, No Pedal Edema, Pedal Edema (+1 ankle edema) Neurologic/Psychiatric: Alert Skin: Normal Color, Warm/Dry Lymphatic: No Adenopathy Results Lab Laboratory Tests 09/15/22 17:00 09/16/22 03:45 09/16/22 04:45 09/17/22 03:08 Assessment/Plan Assessment/Plan as above Critical Care: Critically Ill Patient Time spent with patient (mins): 20 LYNNE MIN MD Sep 17, 2022 08:28
[2022-09-17] MEDS: RT-ALBUTEROL SULF 2.5 MG/3 ML PRE-MIX VIAL INH SCH ×2 (08:29→22:57)
--- NOTE | 2022-09-17 08:36 | Cardiology Progress Note ---
Subjective Date Seen by Provider: Sep 17, 2022 Time Seen by Provider: 08:35 Subjective/Events-last exam Patient was seen at bedside, sitting comfortably, feeling better. Still tachycardic Review of Systems General: No Chills, No Night Sweats; Fatigue, Malaise; No Appetite, No Other HEENT: No Head Aches, No Visual Changes, No Eye Pain, No Ear Pain, No Dysphasia, No Sinus Congestion, No Post Nasal Drip, No Sore Throat, No Other Pulmonary: No Dyspnea, No Cough, No Pleuritic Chest Pain, No Other Cardiovascular: No: Chest Pain, Palpitations, Orthopnea, Paroxysmal Noc. Dyspnea, Edema, Lt Headedness, Other Objective-Cardiology Exam Last Set of Vital Signs Vital Signs 09/16/22 09/17/22 09/17/22 09/17/22 09/17/22 15:48 06:00 07:22 07:25 08:29 Temp 36.3 Pulse 126 Resp 18 B/P (MAP) 150/96 (114) Pulse Ox 96 O2 Delivery Room Air O2 Flow Rate 0.00 FiO2 28 I&O Intake and Output 09/17/22 00:00 Intake Total 865 ml Balance 865 ml Intake Oral 515 ml IV Total 350 ml # Voids 8 # Bowel Movements 6 General: Alert, Oriented X3, Cooperative, No Acute Distress HEENT: Atraumatic, PERRLA, EOMI, Mucous Memb Moist/[place] Neck: Supple, No JVD Lungs: Normal Air Movement, Other (coarse) Heart: Normal S1, Normal S2, Other (Irregular regular heart rate 69) Abdomen: Other (Decreased bowel sounds) Extremities: No Edema, Normal Pulses Skin: No Rashes, No Significant Lesion Neuro: Normal Speech, Strength at 5/5 X4 Ext, Normal Tone Psych/Mental Status: Mental Status NL Results Lab Laboratory Tests 09/17/22 03:08 A/P-Cardiology Admission Diagnosis Acute cholecystitis Coronary artery disease Permanent atrial fibrillation Hypertension Assessment/Plan Status post acute respiratory failure postoperatively on September 07, 2022 required BiPAP. Still having distended abdomen, active bowel sounds. Increase in WBC, having diarrhea. Stool for C. difficile was negative. Maintained on cefepime and metronidazole Managed by medical team Acute cholecystitis, status postcholecystectomy done on September 07, 2022. Postop ileus. Slow improvement Atrial fibrillation/atrial flutter, heart rate is better controlled. History of permanent atrial fibrillation. Cannot tolerate oral medication due to postoperative ileus. I will start oral Cardizem and Lopressor and digoxin and evaluate tolerance and response Status post acute congestive heart failure with fluid overload postoperatively, history of congestive heart failure with chronic compensated left ventricular diastolic dysfunction 2D echo was done in March 2022 with normal left ventricular systolic function ejection fraction 60 to 65% with dilated left atrium and pulmonary hypertension with PA pressure 40 to 45 mmHg Coronary artery disease, history of non-ST elevation myocardial infarction in March 2022 - Cardiac cath of 07-14-18: 90% thg-nu-phooru vessel stenosis of the left anterior descending artery within a small caliber vessel to which balloon angioplasty was carried out which reduced the stenosis to less than 50%. The rest of the coronary vessels have moderate diffuse disease. There is a patent stent in the right coronary with a 50% in-stent restenosis (unchanged compared to previous study). Elevated left ventricular end-diastolic pressure. - MPI of 12/07/19: no ischemia or infarction, LVEF 48% (appeared to be higher, subjectively) - Card cath on 03/25/22: 90-85 prox and mid LAD stenosis treated with PTCA and then 2.25 x 23 mm GABRIELA, distal LAD, distal LCX, and prox RI have severe disease that is not amenable to intervention, RCA is dominant with patent prox stent with up to 50 instent and distal RCA with up to 50 stenoses, LVEDP 22 mmHg Has been maintained on aspirin and Plavix last taken on September 05, 2022. I will hold Plavix due to active oozing from the surgical site Continue on Lovenox History of syncope and collapse reported pulseless per family on March 24, 2022. Had chest compression Loop monitor implanted on March 26, 2022. History of rib fractures after chest compression Hypertension, continue to monitor blood pressure Hyperlipidemia, maintained on statin. Currently on hold History of umbilical hernia. Questionable underlying sleep apnea Lumbar spondylosis and spinal stenosis, followed by IAN Fontaine MD Sep 17, 2022 08:36
[2022-09-17] MEDS ORDERED: POTASSIUM PHOSPHATE INJ 30 MM in NS (IVPB) 250 ML IV NR (09:00)
[2022-09-17] MEDS: meTOproloL SUCCINATE 50 MG (TOPROL XL) TAB PO SCH (09:38)
--- NOTE | 2022-09-17 10:36 | Physical Therapy Progress Note ---
Therapy Progress Note Patient is ambulating with nursing staff multiple times a day. PT to dismiss patient from services at this time. RN present and aware. VENUS CHAPA PT Sep 17, 2022 10:36
[2022-09-17] MEDS: ENOXAPARIN 100 MG/1 ML (LOVENOX) SYR SC SCH ×2 (11:44→23:53)
--- NOTE | 2022-09-17 14:24 | Diagnostic Imaging Report ---
EXAMINATION: Abdomen, two views. HISTORY: Ileus. COMPARISON: 09/15/2022. FINDINGS: There is a moderate amount of gas and stool throughout the colon. Persistent dilated loops of small bowel measuring up to 4 cm. No radiopaque foreign body. The lung bases are clear. Degenerative changes of the hips and spine. Osseous structures are otherwise intact. Surgical changes from left hip arthroplasty. IMPRESSION: Persistent dilated loops of small bowel compatible with ileus or obstruction. Dictated by: Dictated on workstation # [id number]
--- NOTE | 2022-09-17 16:45 | Progress Note ---
ESTELA DAVIS 09/17/22 1645: Subjective Date Seen by a Provider: Sep 17, 2022 Subjective/Events-last exam 87 yo M admitted on 09/09 for post-operative ileus s/p cholecystectomy (done 09/07) as well as atrial-fibrillation. Today pt is sitting upright and comfortable. Admits to a small amount of non-bloody diarrhea this morning. Denies vomitting, nausea, abdominal pain, or flatus. Denies SOB, chest pain, or chills. Having small sips of water and currently tolerating. Review of Systems Gastrointestinal: Diarrhea (minimal, no-bloody) Objective Exam Last Set of Vital Signs Vital Signs Date Time Temp Pulse Resp B/P (MAP) Pulse Ox O2 Delivery O2 Flow Rate FiO2 09/17/22 16:00 66 15 145/89 (107) 87 Nasal Cannula 2.00 09/17/22 16:00 36.6 09/16/22 15:48 28 Capillary Refill : Less Than 3 SecondsLess Than 3 Seconds I&O Intake and Output 09/17/22 00:00 Intake Total 865 ml Balance 865 ml Intake Oral 515 ml IV Total 350 ml # Voids 8 # Bowel Movements 6 General: Alert, Oriented X3, No Acute Distress Lungs: Clear to Auscultation, Normal Air Movement Heart: Regular Rate, Normal S1, Normal S2 Extremities: No Tenderness/Swelling, Other (distension, mildly reduced bowel sounds) Psych/Mental Status: Mental Status NL, Mood NL Results Lab Laboratory Tests 09/17/22 03:08: White Blood Count 18.8H, Red Blood Count 3.66L, Hemoglobin 11.0L, Hematocrit 33L , Mean Corpuscular Volume 91, Mean Corpuscular Hemoglobin 30, Mean Corpuscular Hemoglobin Concent 33, Red Cell Distribution Width 14.6H, Platelet Count 295, Mean Platelet Volume 11.6, Immature Granulocyte % (Auto) 4, Neutrophils (%) (Auto) 82H, Lymphocytes (%) (Auto) 7L, Monocytes (%) (Auto) 6, Eosinophils (%) (Auto) 0, Basophils (%) (Auto) 0, Neutrophils # (Auto) 15.4H, Lymphocytes # (Auto) 1.3, Monocytes # (Auto) 1.2H, Eosinophils # (Auto) 0.1, Basophils # (Auto) 0.1, Immature Granulocyte # (Auto) 0.8H, Sodium Level 136, Potassium Level 3.5L, Chloride Level 109H, Carbon Dioxide Level 17L, Anion Gap 10, Blood Urea Nitrogen 18, Creatinine 0.70, Estimat Glomerular Filtration Rate 90, BUN/Creatinine Ratio 26, Glucose Level 180H, Calcium Level 7.7L, Corrected Calcium 8.9, Phosphorus Level 1.6L, Magnesium Level 1.8, Total Bilirubin 0.5, Aspartate Amino Transf (AST/SGOT) 35H, Alanine Aminotransferase (ALT/SGPT) 45, Alkaline Phosphatase 78, Total Protein 4.8L, Albumin 2.5L 09/17/22 04:46: Glucometer 174H 09/17/22 10:20: Glucometer 157H 09/17/22 16:01: Glucometer 160H Microbiology 09/15/22 C. difficile GDH Antigen & Toxins - Final, Complete Assessment/Plan Assessment/Plan Assess & Plan/Chief Complaint Assessment: 1. Postoperative ileus on 09/09/2022 - TPN - transition to oral intake pending input from surgery 2. Acute cholecystitischolecystectomy postop day #10 3. A-fib with RVR / History of chronic atrial fibrillation - diltiazem drip - IV metorprolol - plans to start oral diltiazaem, lopressor and digoxin per cardiology 4. Leukocytosis - Trending down since 09/14; 18.8 at 3:08 5. Hypokalemia - resolved 6. CHF with preserved EF 7. CAD with cradiac arrest 04/05 8. HTN MARILYNN JJ DO 09/18/22 0611: Subjective Time Seen by a Provider: 10:00 Supervisory-Addendum Brief Verification & Attestation Participated in pt care: history, MDM, physical Personally performed: exam, history, MDM, supervision of care Care discussed with: Medical Student Procedures: n/a Results interpretation: Verified all documentation Verification and Attestation of Medical Student E/M Service A medical student performed and documented this service in my presence. I reviewed and verified all information documented by the medical student and made modifications to such information, when appropriate. I personally performed the physical exam and medical decision making. Marilynn Jj Sep 18, 2022,06:10 ESTELA DAVIS Sep 17, 2022 16:45 MARILYNN JJ DO Sep 18, 2022 06:11
[2022-09-17] MEDS ORDERED: SODIUM ACETATE IV SCH ×11 (17:00)
[2022-09-17] MEDS ORDERED: POTASSIUM CHLORIDE IV SCH ×11 (17:00)
[2022-09-17] MEDS ORDERED: POTASSIUM ACETATE IV SCH ×11 (17:00)
[2022-09-17] MEDS ORDERED: [UNRECOGNIZED DRUG - OTHER] IV SCH ×11 (17:00)
--- NOTE | 2022-09-17 18:20 | Progress Note ---
Subjective Date Seen by a Provider: Sep 17, 2022 Time Seen by a Provider: 18:00 Subjective/Events-last exam doing better today. having more formed stools and gas. tolerating clears well. still has some abd distention yet improving. no fever/chills. Objective Exam Vital Signs Date Time Temp Pulse Resp B/P (MAP) Pulse Ox O2 Delivery O2 Flow Rate FiO2 09/17/22 18:00 108 14 92 Nasal Cannula 2.00 09/17/22 17:00 75 21 120/69 (86) 92 Nasal Cannula 2.00 09/17/22 16:20 98 Nasal Cannula 2.00 09/17/22 16:00 66 15 145/89 (107) 87 Nasal Cannula 2.00 09/17/22 16:00 36.6 09/17/22 14:45 70 28 139/69 (92) 96 Nasal Cannula 2.00 09/17/22 14:00 81 23 126/62 (83) 93 Nasal Cannula 2.00 09/17/22 13:00 80 14 133/85 (101) Nasal Cannula 2.00 09/17/22 12:35 121 09/17/22 12:30 122 12 145/108 (120) Nasal Cannula 2.00 09/17/22 11:55 98 Nasal Cannula 2.00 09/17/22 11:54 36.4 09/17/22 11:00 89 24 144/103 (117) 92 Nasal Cannula 2.00 09/17/22 10:00 85 18 153/86 (108) 95 Nasal Cannula 2.00 09/17/22 09:00 123 13 157/111 (126) 96 Nasal Cannula 2.00 09/17/22 08:30 124 18 144/101 (115) 96 Nasal Cannula 2.00 09/17/22 08:29 96 Room Air 0.00 09/17/22 08:15 128 23 151/129 (136) 89 Nasal Cannula 2.00 09/17/22 08:00 Nasal Cannula 2.00 09/17/22 07:48 96 Room Air 09/17/22 07:25 126 09/17/22 07:22 36.3 09/17/22 07:00 Room Air 09/17/22 06:00 107 18 150/96 (114) 93 Nasal Cannula 2.00 09/17/22 05:30 89 21 151/98 (115) 93 Nasal Cannula 2.00 09/17/22 04:15 122 19 148/99 (115) 95 Nasal Cannula 2.00 09/17/22 03:50 95 Nasal Cannula 2.00 09/17/22 03:50 36.9 Nasal Cannula 2.00 09/17/22 03:00 74 19 132/67 (88) 95 Nasal Cannula 2.00 09/17/22 02:00 75 17 128/65 (86) 95 Nasal Cannula 2.00 09/17/22 01:28 75 161/71 09/17/22 01:00 97 20 147/77 (100) 96 Nasal Cannula 2.00 09/17/22 01:00 97 09/17/22 00:00 87 20 151/88 (109) 93 Nasal Cannula 2.00 09/16/22 23:30 36.7 122 21 145/94 (111) 95 Nasal Cannula 2.00 09/16/22 23:30 94 Nasal Cannula 2.00 09/16/22 23:00 122 28 166/98 (120) 94 Nasal Cannula 2.00 09/16/22 22:00 96 19 138/76 (96) 94 Nasal Cannula 2.00 09/16/22 21:21 95 Nasal Cannula 2.00 09/16/22 21:00 97 19 148/95 (112) 94 Nasal Cannula 2.00 09/16/22 20:39 Nasal Cannula 2.00 09/16/22 20:00 36.5 94 22 159/93 (115) 95 Room Air 09/16/22 20:00 95 Room Air 09/16/22 19:49 36.7 09/16/22 19:00 70 09/16/22 19:00 70 150/93 (112) 95 Room Air I & O 09/17/22 07:00 Intake Total 860 ml Output Total 300 ml Balance 560 ml Capillary Refill : Less Than 3 SecondsLess Than 3 Seconds General Appearance: No Apparent Distress Neck: Full Range of Motion Respiratory: Chest Non Tender, Rhonci Cardiovascular: Regular Rate, Rhythm Gastrointestinal: normal bowel sounds, soft, tenderness, other (wounds clean/dry) Extremity: Normal Capillary Refill Neurologic/Psychiatric: Alert, Oriented x3 Skin: Normal Color Lymphatic: No Adenopathy Results Lab Laboratory Tests 09/17/22 03:08: White Blood Count 18.8H, Red Blood Count 3.66L, Hemoglobin 11.0L, Hematocrit 33L , Mean Corpuscular Volume 91, Mean Corpuscular Hemoglobin 30, Mean Corpuscular Hemoglobin Concent 33, Red Cell Distribution Width 14.6H, Platelet Count 295, Mean Platelet Volume 11.6, Immature Granulocyte % (Auto) 4, Neutrophils (%) (Auto) 82H, Lymphocytes (%) (Auto) 7L, Monocytes (%) (Auto) 6, Eosinophils (%) (Auto) 0, Basophils (%) (Auto) 0, Neutrophils # (Auto) 15.4H, Lymphocytes # (Auto) 1.3, Monocytes # (Auto) 1.2H, Eosinophils # (Auto) 0.1, Basophils # (Auto) 0.1, Immature Granulocyte # (Auto) 0.8H, Sodium Level 136, Potassium Level 3.5L, Chloride Level 109H, Carbon Dioxide Level 17L, Anion Gap 10, Blood Urea Nitrogen 18, Creatinine 0.70, Estimat Glomerular Filtration Rate 90, BUN/Creatinine Ratio 26, Glucose Level 180H, Calcium Level 7.7L, Corrected Calcium 8.9, Phosphorus Level 1.6L, Magnesium Level 1.8, Total Bilirubin 0.5, Aspartate Amino Transf (AST/SGOT) 35H, Alanine Aminotransferase (ALT/SGPT) 45, Alkaline Phosphatase 78, Total Protein 4.8L, Albumin 2.5L 09/17/22 04:46: Glucometer 174H 09/17/22 10:20: Glucometer 157H 09/17/22 16:01: Glucometer 160H Microbiology 09/15/22 C. difficile GDH Antigen & Toxins - Final, Complete Assessment/Plan Assessment/Plan Assess & Plan/Chief Complaint s/p laparoscopic cholecystectomy and umbilical hernia repair. ambulate. no heavy lifting exertion for 2 weeks. await HR control. ok to restart home OAC. developed ileus, NGT out and tolerating clears well. will recommend continued clears until less abd distention tjem advance to dys3 diet. await rate control per cardiology. ambulating well. CONCHA OLIVER MD Sep 17, 2022 18:19
[2022-09-17] MEDS: D5W 1000 ML IV SOLUTION 1,000 ML IV SCH (18:40)
[2022-09-18] MEDS: METOCLOPRAMIDE INJ 10 MG/2 ML (REGLAN) IVP SCH ×4 (03:51→21:02)
[2022-09-18] MEDS: meTOprolol 5 MG/5 ML (LOPRESSOR) VIAL IV SCH ×2 (03:51→05:29)
[2022-09-18 04:08] LABS: BASOPHILS # (AUTO) 0.1 10^3/uL (0.0-0.1); BASOPHILS % (AUTO) 1 % (0-10); EOSINOPHILS # (AUTO) 0.1 10^3/uL (0.0-0.3); EOSINOPHILS % (AUTO) 0 % (0-10); HEMATOCRIT 33 % (40-54); HEMOGLOBIN 11.1 g/dL (13.3-17.7); LYMPHOCYTES % (AUTO) 10 % (12-44); MEAN CORPUSCULAR HEMOGLOBIN 30 pg (25-34); MEAN CORPUSCULAR HGB CONC 33 g/dL (32-36); MEAN CORPUSCULAR VOLUME 91 fL (80-99); MEAN PLATELET VOLUME 11.7 fL (9.0-12.2); MONOCYTES # (AUTO) 1.4 10^3/uL (0.0-1.0); MONOCYTES % (AUTO) 7 % (0-12); NEUTROPHILS % (AUTO) 77 % (42-75); PLATELET COUNT 331 10^3/uL (130-400); WHITE BLOOD COUNT 20.8 10^3/uL (4.3-11.0)
[2022-09-18 04:22] LABS: ALBUMIN 2.7 GM/DL (3.2-4.5); POTASSIUM 3.6 MMOL/L (3.6-5.0)
[2022-09-18 04:24] LABS: CALCIUM 7.8 MG/DL (8.5-10.1)
[2022-09-18 04:25] LABS: TOTAL PROTEIN 5.1 GM/DL (6.4-8.2)
[2022-09-18 04:27] LABS: BILIRUBIN,TOTAL 0.4 MG/DL (0.1-1.0)
[2022-09-18 04:28] LABS: PHOSPHORUS 2.1 MG/DL (2.3-4.7)
[2022-09-18 04:29] LABS: CREATININE SERUM 0.75 MG/DL (0.60-1.30)
[2022-09-18 04:31] LABS: MAGNESIUM 1.9 MG/DL (1.6-2.4)
[2022-09-18] MEDS: POTASSIUM CL 10MEQ/50ML IVPB 50 ML IV SCH ×3 (05:29→05:46)
[2022-09-18] MEDS: MAGNESIUM 1 GM/100 ML IVPB 100 ML IV SCH (05:46)
[2022-09-18] MEDS: KCL 20 MEQ TAB (K-DUR) PO SCH (05:47)
[2022-09-18] MEDS ORDERED: POTASSIUM PHOSPHATE INJ 30 MM in NS (IVPB) 250 ML IV NR (08:00)
--- NOTE | 2022-09-18 08:39 | Progress Note - Cardiology ---
Cardiology SOAP Progress Note Subjective: Lying in bed No c/o CP, SOB or palpitations Reports sipping liquids No c/o abd discomfort this morning Objective: I&O/Vital Signs 09/18/22 09/18/22 09/18/22 09/18/22 03:00 04:00 04:00 05:00 Pulse 62 64 60 B/P (MAP) 148/68 (94) 151/81 (104) 159/75 (103) Pulse Ox 97 96 96 88 O2 Delivery Nasal Cannula Room Air Nasal Cannula Nasal Cannula O2 Flow Rate 2.00 2.00 2.00 09/18/22 09/18/22 09/18/22 09/18/22 06:00 07:00 07:39 07:41 Pulse 60 67 61 B/P (MAP) 150/76 (100) 162/65 (97) Pulse Ox 93 95 98 O2 Delivery Nasal Cannula Nasal Cannula Room Air O2 Flow Rate 2.00 2.00 09/18/22 09/18/22 09/18/22 09/18/22 07:44 08:00 09:00 09:22 Temp 36.6 Pulse 61 98 Resp 16 40 B/P (MAP) 148/63 (91) 151/89 (109) Pulse Ox 94 94 O2 Delivery Nasal Cannula Nasal Cannula Room Air O2 Flow Rate 2.00 2.00 09/18/22 09/18/22 09/18/22 09/18/22 10:00 11:00 12:00 12:35 Pulse 109 121 123 121 Resp 25 19 B/P (MAP) 152/98 (116) 159/104 (122) 164/97 (119) O2 Delivery Nasal Cannula Nasal Cannula Nasal Cannula Room Air O2 Flow Rate 2.00 2.00 2.00 09/18/22 09/18/22 12:35 13:15 Pulse 122 Pulse Ox 98 O2 Delivery Room Air 09/18/22 00:00 Intake Total 1035 ml Output Total 1400 ml Balance -365 ml Weight (Pounds): 185 Weight (Ounces): 0.0 Weight (Calculated Kilograms): 83.056731 Constitutional: AAO x 3, well-developed, well-nourished Respiratory: No accessory muscle use, No respiratory distress; lungs clear to auscultation Cardiovascular: irregularly irregular; No JVD Gastrointestional: No guarding; audible bowel sounds (hypoactive) Extremities: no lower extremity edema bilateral Neurologic/Psychiatric: grossly intact (moves all extremities) Skin: No rash on exposed areas, No ulcerations on exposed areas Results/Procedures: Labs Laboratory Tests 09/17/22 16:01: Glucometer 160H 09/17/22 20:50: Glucometer 168H 09/18/22 03:55: White Blood Count 20.8H, Red Blood Count 3.66L, Hemoglobin 11.1L, Hematocrit 33L , Mean Corpuscular Volume 91, Mean Corpuscular Hemoglobin 30, Mean Corpuscular Hemoglobin Concent 33, Red Cell Distribution Width 14.6H, Platelet Count 331, Mean Platelet Volume 11.7, Immature Granulocyte % (Auto) 6, Neutrophils (%) (Auto) 77H, Lymphocytes (%) (Auto) 10L, Monocytes (%) (Auto) 7, Eosinophils (%) (Auto) 0, Basophils (%) (Auto) 1, Neutrophils # (Auto) 16.0H, Lymphocytes # (Auto) 2.0, Monocytes # (Auto) 1.4H, Eosinophils # (Auto) 0.1, Basophils # (Auto) 0.1, Immature Granulocyte # (Auto) 1.2H, Sodium Level 133L, Potassium Level 3.6, Chloride Level 104, Carbon Dioxide Level 20L, Anion Gap 9, Blood Urea Nitrogen 17, Creatinine 0.75, Estimat Glomerular Filtration Rate 88, BUN/Creatinine Ratio 23, Glucose Level 288H, Calcium Level 7.8L, Corrected Calcium 8.8, Phosphorus Level 2.1L, Magnesium Level 1.9, Total Bilirubin 0.4, Aspartate Amino Transf (AST/SGOT) 36H, Alanine Aminotransferase (ALT/SGPT) 48, Alkaline Phosphatase 93, Total Protein 5.1L, Albumin 2.7L, Digoxin Level 0.50L 09/18/22 05:44: Glucometer 178H 09/18/22 10:46: Glucometer 181H 09/18/22 11:30: Urine Color YELLOW, Urine Clarity CLEAR, Urine pH 5.5, Urine Specific [place] >=1.030, Urine Protein TRACEH, Urine Glucose (UA) 2+H, Urine Ketones NEGATIVE, Urine Nitrite NEGATIVE, Urine Bilirubin NEGATIVE, Urine Urobilinogen 0.2, Urine Leukocyte Esterase NEGATIVE, Urine RBC (Auto) 1+H, Urine RBC 2-5H, Urine WBC 0- 2, Urine Crystals NONE, Urine Bacteria TRACE, Urine Casts NONE, Urine Mucus NEGATIVE, Urine Yeast FEWH, Urine Culture Indicated YES Microbiology 09/15/22 C. difficile GDH Antigen & Toxins - Final, Complete A/P: Assessment: Status post acute respiratory failure postoperatively on September 07, 2022 required BiPAP. Leukocytosis Stool for C. difficile was negative. Maintained on cefepime and metronidazole Managed by medical team Acute cholecystitis, status postcholecystectomy done on September 07, 2022. Postop ileus. Slow improvement Permanent a-fib/flutter Atrial fibrillation/atrial flutter, heart rate is better controlled Receiving Lovenox - Eliquis being held per surgical services - when deemed suitable by surgical services advise changing back to Eliquis Acute on Chronic diastolic congestive heart failure - Echo was done in March 2022 with normal left ventricular systolic function ejection fraction 60 to 65% with dilated left atrium and pulmonary hypertension with PA pressure 40 to 45 mmHg - Clinically compensated Coronary artery disease, history of non-ST elevation myocardial infarction in March 2022 - Cardiac cath of 07-14-18: 90% [id number] vessel stenosis of the left anterior descending artery within a small caliber vessel to which balloon angioplasty was carried out which reduced the stenosis to less than 50%. The rest of the coronary vessels have moderate diffuse disease. There is a patent stent in the right coronary with a 50% in-stent restenosis (unchanged compared to previous study). Elevated left ventricular end-diastolic pressure. - MPI of 12/07/19: no ischemia or infarction, LVEF 48% (appeared to be higher, subjectively) - Card cath on 03/25/22: 90-85 prox and mid LAD stenosis treated with PTCA and then 2.25 x 23 mm GABRIELA, distal LAD, distal LCX, and prox RI have severe disease that is not amenable to intervention, RCA is dominant with patent prox stent with up to 50 instent and distal RCA with up to 50 stenoses, LVEDP 22 mmHg - Had been maintained on aspirin and Plavix last taken on September 05, 2022. - currently being withheld d/t post op site oozing - receiving Lovenox History of syncope and collapse reported pulseless per family on March 24, 2022. Had chest compression Loop monitor implanted on March 26, 2022. History of rib fractures after chest compression Hypertension, continue to monitor blood pressure Hyperlipidemia, maintained on statin. Currently on hold History of umbilical hernia. Questionable underlying sleep apnea Lumbar spondylosis and spinal stenosis, followed by Dr. Mahan Plan: Chart review of this admission has been done Management of ileus per surgical services He is taking oral intake and medications HR has been difficult to control Advise stopping IV BB, short-acting BB and long-acting BB Advise stopping IV Cardizem and short acting Cardizem Start long acting Cardizem Check digoxin level Start long acting BB Re-start Plavix d/t recent coronary intervention (March 2022) Advise starting Eliquis for stroke prophylaxis and stopping Lovenox once Eliquis has been resumed Monitor lab closely SO MARCIAL Sep 18, 2022 08:39
[2022-09-18] MEDS: inSUlin ASPART (NovoLOG) 1 UNIT/0.01 ML (CHARGE PER UNIT) SC SCH ×4 (09:07→21:02)
--- NOTE | 2022-09-18 09:19 | Progress Note - Cardiology ---
Cardiology SOAP Progress Note Subjective: Gen weakness and malaise present No focal weakness Poor appetite but improving No n/v No cp or palp or syncope or swelling Objective: I&O/Vital Signs 09/17/22 09/17/22 09/17/22 09/17/22 21:45 22:00 22:57 23:00 Pulse 80 74 80 B/P (MAP) 157/69 (98) 158/90 (112) 142/66 Pulse Ox 96 O2 Delivery Nasal Cannula Nasal Cannula Room Air O2 Flow Rate 2.00 2.00 09/17/22 09/18/22 09/18/22 09/18/22 23:00 00:00 00:00 01:00 Pulse 94 65 60 B/P (MAP) 127/89 (102) 149/84 (105) Pulse Ox 95 95 97 O2 Delivery Nasal Cannula Nasal Cannula Room Air O2 Flow Rate 2.00 2.00 09/18/22 09/18/22 09/18/22 09/18/22 01:00 02:00 03:00 04:00 Pulse 60 61 62 B/P (MAP) 139/67 (91) 145/71 (95) 148/68 (94) Pulse Ox 96 96 97 96 O2 Delivery Nasal Cannula Nasal Cannula Nasal Cannula Room Air O2 Flow Rate 2.00 2.00 2.00 09/18/22 09/18/22 09/18/22 09/18/22 04:00 05:00 06:00 07:00 Pulse 64 60 60 67 B/P (MAP) 151/81 (104) 159/75 (103) 150/76 (100) 162/65 (97) Pulse Ox 96 88 93 95 O2 Delivery Nasal Cannula Nasal Cannula Nasal Cannula Nasal Cannula O2 Flow Rate 2.00 2.00 2.00 2.00 09/18/22 09/18/22 09/18/22 07:39 07:44 08:00 Temp 36.6 Pulse 61 61 Resp 16 B/P (MAP) 148/63 (91) Pulse Ox 94 O2 Delivery Nasal Cannula O2 Flow Rate 2.00 09/18/22 00:00 Intake Total 1035 ml Output Total 1400 ml Balance -365 ml Weight (Pounds): 185 Weight (Ounces): 0.0 Weight (Calculated Kilograms): 83.280351 Constitutional: AAO x 3, well-developed, well-nourished Respiratory: No accessory muscle use, No respiratory distress; lungs clear to auscultation Cardiovascular: irregularly irregular; No JVD Gastrointestional: No guarding; audible bowel sounds (hypoactive) Extremities: no lower extremity edema bilateral Neurologic/Psychiatric: grossly intact (moves all extremities) Skin: No rash on exposed areas, No ulcerations on exposed areas Results/Procedures: Labs Laboratory Tests 09/17/22 10:20: Glucometer 157H 09/17/22 16:01: Glucometer 160H 09/17/22 20:50: Glucometer 168H 09/18/22 03:55: White Blood Count 20.8H, Red Blood Count 3.66L, Hemoglobin 11.1L, Hematocrit 33L , Mean Corpuscular Volume 91, Mean Corpuscular Hemoglobin 30, Mean Corpuscular Hemoglobin Concent 33, Red Cell Distribution Width 14.6H, Platelet Count 331, Mean Platelet Volume 11.7, Immature Granulocyte % (Auto) 6, Neutrophils (%) (Auto) 77H, Lymphocytes (%) (Auto) 10L, Monocytes (%) (Auto) 7, Eosinophils (%) (Auto) 0, Basophils (%) (Auto) 1, Neutrophils # (Auto) 16.0H, Lymphocytes # (Auto) 2.0, Monocytes # (Auto) 1.4H, Eosinophils # (Auto) 0.1, Basophils # (Auto) 0.1, Immature Granulocyte # (Auto) 1.2H, Sodium Level 133L, Potassium Level 3.6, Chloride Level 104, Carbon Dioxide Level 20L, Anion Gap 9, Blood Urea Nitrogen 17, Creatinine 0.75, Estimat Glomerular Filtration Rate 88, BUN/Creatinine Ratio 23, Glucose Level 288H, Calcium Level 7.8L, Corrected Calcium 8.8, Phosphorus Level 2.1L, Magnesium Level 1.9, Total Bilirubin 0.4, Aspartate Amino Transf (AST/SGOT) 36H, Alanine Aminotransferase (ALT/SGPT) 48, Alkaline Phosphatase 93, Total Protein 5.1L, Albumin 2.7L, Digoxin Level 0.50L 09/18/22 05:44: Glucometer 178H Microbiology 09/15/22 C. difficile GDH Antigen & Toxins - Final, Complete A/P: Assessment: Acute cholecystitis, status postcholecystectomy done on September 07, 2022. - Status post acute respiratory failure postoperatively on September 07, 2022 required BiPAP. - Postop ileus. Slow improvement - Postop leukocytosis Stool for C. difficile was negative.Maintained on cefepime and metronidazole per Med Svce Permanent a-fib/flutter - rate controlled on multiple meds - Receiving Lovenox - Eliquis being held per surgical services - when deemed suitable by surgical services advise changing back to Eliquis Acute on Chronic diastolic congestive heart failure - Echo was done in March 2022 with normal left ventricular systolic function ejection fraction 60 to 65% with dilated left atrium and pulmonary hypertension with PA pressure 40 to 45 mmHg - Clinically compensated Coronary artery disease, history of non-ST elevation myocardial infarction in March 2022 - Cardiac cath of 07-14-18: 90% [id number] vessel stenosis of the left anterior descending artery within a small caliber vessel to which balloon angioplasty was carried out which reduced the stenosis to less than 50%. The rest of the coronary vessels have moderate diffuse disease. There is a patent stent in the right coronary with a 50% in-stent restenosis (unchanged compared to previous study). Elevated left ventricular end-diastolic pressure. - MPI of 12/07/19: no ischemia or infarction, LVEF 48% (appeared to be higher, subjectively) - Card cath on 03/25/22 after cardiac arrest: 90-85 prox and mid LAD stenosis treated with PTCA and then 2.25 x 23 mm GABRIELA, distal LAD, distal LCX, and prox RI have severe disease that is not amenable to intervention, RCA is dominant with patent prox stent with up to 50 instent and distal RCA with up to 50 stenoses, LVEDP 22 mmHg - Had been maintained on aspirin and Plavix last taken on September 05, 2022. - currently being withheld d/t post op site oozing - receiving Lovenox History of syncope and collapse reported pulseless per family on March 24, 2022. Had chest compression Loop monitor implanted on March 26, 2022. History of rib fractures after chest compression Hypertension, continue to monitor blood pressure Hyperlipidemia, maintained on statin. Currently on hold History of umbilical hernia. Questionable underlying sleep apnea Lumbar spondylosis and spinal stenosis, followed by Dr. Mahan Plan: Complex management I interviewed and examined the patient and reviewed his records Management of ileus per surgical services He is on multiple preps of beta-blockers and CCB (iv and oral). Consolidate into oral regimen Advise stopping IV BB, short-acting BB and long-acting BB Advise stopping IV Cardizem and short acting Cardizem Start long acting Cardizem Check digoxin level Start long acting BB Re-start Plavix d/t recent coronary intervention (March 2022) Advise starting Eliquis for stroke prophylaxis and stopping Lovenox once Eliquis has been resumed Monitor lab closely RG OLIVEIRA MD FACP FAC CCDS Sep 18, 2022 09:19
[2022-09-18] MEDS: RT-ALBUTEROL SULF 2.5 MG/3 ML PRE-MIX VIAL INH SCH ×2 (09:22→21:17)
[2022-09-18] MEDS: CLOPIDOGREL 75 MG (PLAVIX) TABLET PO SCH (09:28)
[2022-09-18] MEDS: PANTOPRAZOLE 40 MG (PROTONIX) VIAL IV SCH (09:29)
[2022-09-18] MEDS: meTOproloL SUCCINATE 50 MG (TOPROL XL) TAB PO SCH ×2 (09:29→21:02)
[2022-09-18] MEDS: SODIUM PHOSPHATE INJ 7.5 MM in NS (IVPB) 50 ML INJ SCH ×2 (09:31→10:33)
[2022-09-18] MEDS: DOCUSATE SODIUM 100 MG (COLACE) CAP PO SCH ×2 (09:49→21:01)
[2022-09-18] MEDS: SENNOSIDES 8.6 MG (SENOKOT) TAB PO SCH ×2 (09:49→21:01)
[2022-09-18] MEDS: BISACODYL 10 MG SUPP (DULCOLAX) PR SCH (09:49)
[2022-09-18 11:40] LABS: BILIRUBIN,URINE NEGATIVE (NEGATIVE); CLARITY,URINE CLEAR; COLOR,URINE YELLOW; GLUCOSE, URINE (UA) 2+ (NEGATIVE); KETONES,URINE NEGATIVE (NEGATIVE); LEUKOCYTE ESTERASE ,URINE NEGATIVE (NEGATIVE); NITRITE,URINE NEGATIVE (NEGATIVE); PH,URINE 5.5 (5-9); PROTEIN,URINE TRACE (NEGATIVE)
[2022-09-18 11:49] LABS: BACTERIA,URINE TRACE /HPF; WBC,URINE 0-2 /HPF; YEAST,URINE FEW /HPF
--- NOTE | 2022-09-18 11:56 | Progress Note ---
ESTELA ADVIS 09/18/22 1156: Subjective Date Seen by a Provider: Sep 18, 2022 Subjective/Events-last exam 87 yo M admitted on 09/09 for post-operative ileus s/p cholecystectomy (done 09/07) as well as atrial fibrillation. He denies N/V/D, abdominal pain and flatus as well as chills, sweating, SOB, chest pain, or heart fluttering. Having small sips of water and currently tolerating. He has a limited appetite at this time but expresses an interest in attempting oral feeding. Objective Exam Last Set of Vital Signs Vital Signs Date Time Temp Pulse Resp B/P (MAP) Pulse Ox O2 Delivery O2 Flow Rate FiO2 09/18/22 11:00 121 Nasal Cannula 2.00 09/18/22 10:00 25 09/18/22 09:00 94 09/18/22 07:44 36.6 09/16/22 15:48 28 Capillary Refill : Less Than 3 SecondsLess Than 3 Seconds I&O Intake and Output 09/18/22 00:00 Intake Total 1450 ml Output Total 2100 ml Balance -650 ml Intake Oral 850 ml IV Total 600 ml Output Urine Total 2100 ml # Voids 1 # Bowel Movements 7 General: Oriented X3, No Acute Distress, Other (general malase) Lungs: Clear to Auscultation, Normal Air Movement Heart: Regular Rate Abdomen: Normal Bowel Sounds, No Tenderness, No Masses, Other (mild distension) Extremities: No Edema Psych/Mental Status: Mental Status NL Results Lab Laboratory Tests 09/17/22 16:01: Glucometer 160H 09/17/22 20:50: Glucometer 168H 09/18/22 03:55: White Blood Count 20.8H, Red Blood Count 3.66L, Hemoglobin 11.1L, Hematocrit 33L , Mean Corpuscular Volume 91, Mean Corpuscular Hemoglobin 30, Mean Corpuscular Hemoglobin Concent 33, Red Cell Distribution Width 14.6H, Platelet Count 331, Mean Platelet Volume 11.7, Immature Granulocyte % (Auto) 6, Neutrophils (%) (Auto) 77H, Lymphocytes (%) (Auto) 10L, Monocytes (%) (Auto) 7, Eosinophils (%) (Auto) 0, Basophils (%) (Auto) 1, Neutrophils # (Auto) 16.0H, Lymphocytes # (Auto) 2.0, Monocytes # (Auto) 1.4H, Eosinophils # (Auto) 0.1, Basophils # (Auto) 0.1, Immature Granulocyte # (Auto) 1.2H, Sodium Level 133L, Potassium Level 3.6, Chloride Level 104, Carbon Dioxide Level 20L, Anion Gap 9, Blood Urea Nitrogen 17, Creatinine 0.75, Estimat Glomerular Filtration Rate 88, BUN/Creatinine Ratio 23, Glucose Level 288H, Calcium Level 7.8L, Corrected Calcium 8.8, Phosphorus Level 2.1L, Magnesium Level 1.9, Total Bilirubin 0.4, Aspartate Amino Transf (AST/SGOT) 36H, Alanine Aminotransferase (ALT/SGPT) 48, Alkaline Phosphatase 93, Total Protein 5.1L, Albumin 2.7L, Digoxin Level 0.50L 09/18/22 05:44: Glucometer 178H 09/18/22 10:46: Glucometer 181H 09/18/22 11:30: Microbiology 09/15/22 C. difficile GDH Antigen & Toxins - Final, Complete Assessment/Plan Assessment/Plan Assess & Plan/Chief Complaint 1. Postoperative ileus on 09/09/2022 - TPN - oral intake permitted by surgery; will proceed gradually pending patient readiness 2. Acute cholecystitischolecystectomy postop day #11 3. A-fib with RVR / History of chronic atrial fibrillation - diltiazem PO, metoprolol PO and digoxin per cardiology - clopidogrel restarted per cardiology - plans to d/c lovenox and restart eliquis per cardiology 4. Leukocytosis - 20.8 at 3:55 am; an increase from yesterday (18.8), though overall trending down since admission (24.2) 5. Hypokalemia - resolved 6. CHF with preserved EF 7. 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 HTN Additional plan(s): disposition to fourth floor for regular floor cares. MARILYNN JJ DO 09/19/22 0445: Subjective Time Seen by a Provider: 10:00 Subjective/Events-last exam Ready for transfer to floor Review of Systems General: Fatigue, Malaise Gastrointestinal: Abdominal Pain Objective Exam General: Alert, Oriented X3, Cooperative, No Acute Distress Lungs: Clear to Auscultation, Normal Air Movement Heart: Regular Rate, Normal S1, Normal S2, No Murmurs Psych/Mental Status: Mental Status NL, Mood NL Supervisory-Addendum Brief Verification & Attestation Participated in pt care: history, MDM, physical Personally performed: exam, history, MDM, supervision of care Care discussed with: Medical Student Procedures: n/a Results interpretation: Verified all documentation Verification and Attestation of Medical Student E/M Service A medical student performed and documented this service in my presence. I reviewed and verified all information documented by the medical student and made modifications to such information, when appropriate. I personally performed the physical exam and medical decision making. Marilynn Jj, Sep 19, 2022,04:44 ESTELA DAVIS Sep 18, 2022 11:56 MARILYNN JJ DO Sep 19, 2022 04:45
[2022-09-18] MEDS: ENOXAPARIN 100 MG/1 ML (LOVENOX) SYR SC SCH (12:33)
--- NOTE | 2022-09-18 12:59 | Diagnostic Imaging Report ---
EXAMINATION: Chest 1 view HISTORY: Leukocytosis. COMPARISON: 09/13/2022. FINDINGS: Heart size and pulmonary vasculature are normal. The lungs are clear without consolidation, pleural effusion, or pneumothorax. Degenerative changes of the thoracic spine. Osseous structures are otherwise intact. A left-sided PICC line is unchanged. IMPRESSION: 1. No acute radiographic abnormality in the chest. Dictated by: Dictated on workstation # [id number]
--- NOTE | 2022-09-18 13:33 | Occupational Therapy Eval ---
OT Evaluation-General/PLF Medical Diagnosis Admission Date Sep 05, 2022 at 19:41 Medical Diagnosis: acute cholecystitis Onset Date: Sep 05, 2022 Therapy Diagnosis Therapy Diagnosis: decreased ADL status Height/Weight Height (Feet): 5 Height (Inches): 8.00 Weight (Pounds): 185 Weight (Ounces): 0.0 Precautions Precautions/Isolations: Fall Prevention, Standard Precautions, Pressure Ulcer Referral Physician: Ramsey Referral Reason: Evaluation/Treatment Medical History Pertinent Medical History: Atrial Fib, CAD, Heart Failure, HTN Additional Medical History afib, HTN, CKD, HLD, CAD, cardiac arrest March 2022 Current History 09/06/22 ED with abdominal pain. 09/07 s/p laparoscopic cholecystectomy and umbilical hernia repair. No heavy lifting/exertion for 2 weeks Social History Home: Single Level Current Living Status: Alone ADL-Prior Level of Function SCALE: Activities may be completed with or without assistive devices. 7-Lrjjkrmhwe-hdsntha completes the activity by him/herself with no assistance from a helper. 5-Set-up or Clean-up Assistance-helper sets up or cleans up; patient completes activity. [place] assists only prior to or following the activity. 4-Supervision or Touching Assistance-helper provides verbal cues and/or touching/steadying and/or contact guard assistance as patient completes activity. Assistance may be provided throughout the activity or intermittently. 3-Partial/Moderate Assistance-helper does LESS THAN HALF the effort. [place] lifts, holds or supports trunk or limbs, but provides less than half the effort. 2-Substantial/Maximal Assistance-helper does MORE THAN HALF the effort. [place] lifts or holds trunk or limbs and provides more than half the effort. 6-Whnkdvrky-atgvkv does ALL the effort. Patient does none of the effort to complete the activity. Or, the assistance of 2 or more helpers is required for the patient to complete the activity. If activity was not attempted, code reason: 7-Patient Refused. 9-Not Applicable-not attempted and the patient did not perform the activity before the current illness, exacerbation or injury. 10-Not Attempted due to Environmental Limitations-(lack of equipment, weather restraints, etc.). 88-Not Attempted due to Medical Conditions or Safety Concerns. ADL PLOF Comments Pt reports IND with ADLS and functional mobility, no AD. Self Care: Independent Functional Cognition: Independent OT Current Status Subjective Pt in bed, agreeable to OT Tx. Pt c/o slight pain in R wrist with movement due to previous IV placement. Mental Status/Objective Patient Orientation: Person, Place, Time, Situation Attachments: IV Current Upper Extremity ROM WFL ADL-Treatment Eating (QC): 6 Oral Hygiene (QC): 6 On/Off Footwear (QC): 3 (Min A ) Toileting Hygiene (QC): 3 (Min A with hygiene due to c/o wrist pain from previous IV placement.) Other Treatments Pt in bed, transferred supine to sit EOB, IND. Pt used FWW to transfer into bath room and onto toilet. OT assisted with managing IV pole only. Pt completed toileting, requiring min A with hygiene due to c/o wrist pain in R wrist where previous IV was placed. Pt stood at sink washing hands independently, then transferred to recliner, OT assisted only with IV pole. Pt demo'd ability to don/doff socks, required min A overall. Post tx, pt in recliner, call light in reach and all needs met, lunch present. Education OT Patient Education: Correct positioning, Energy conservation, Modified ADL techniques, Progress toward Goal/Update tx plan, Purpose of tx/functional activities, Rehab process Teaching Recipient: Patient Teaching Methods: Discussion Response to Teaching: Verbalize Understanding OT [employer] Goals Intermediate Goals Time Frame: Sep 27, 2022 Toileting Hygiene (QC): 6 Upper Body Dressing (QC): 6 Lower Body Dressing (QC): 6 On/Off Footwear (QC): 6 Additional Goals: 1-Demonstrate ADL Tasks, 2-Verbalize Understanding, 3- ImproveStrength/Roro 1=Demonstrate adherence to instructed precautions during ADL tasks. 2=Patient will verbalize/demonstrate understanding of assistive devices/modifications for ADL. 3=Patient will improve strength/tolerance for activity to enable patient to perform ADL's. OT Education/Plan Problem List/Assessment Assessment: Decreased Activ Tolerance, Impaired I ADL's, Impaired Self-Care Skills Pt would benefit from short term skilled OT services in order to increase safety and independence with ADLS in order to maximize LOF for safe return home. Discharge Recommendations Plan/Recommendations: Continue POC Treatment Plan/Plan of Care Patient would benefit from OT for education, treatment and training to promote independence in ADL's, mobility, safety and/or upper extremity function for ADL's. Plan of Care: ADL Retraining, Functional Mobility, UE Funct Exercise/Act Treatment Duration: Sep 27, 2022 Frequency: 3 times per week (3-5 times per week) Rehab Potential: Fair Time Start Time: 13:25 Stop Time: 13:55 DATE: Sep 18, 2022 Total Time Billed (hr/min): 30 Billed Treatment Time 1, EVL (10'), ADL (20') WANG SUAREZ OT Sep 18, 2022 13:33
--- NOTE | 2022-09-18 14:45 | Progress Note ---
Subjective Date Seen by a Provider: Sep 18, 2022 Time Seen by a Provider: 14:00 Subjective/Events-last exam doing better. having multiple BM's. ambulating without assistance much more. tolerating PUD diet and liquids. restart all home meds including apixiban and plavix. Objective Exam Vital Signs Date Time Temp Pulse Resp B/P (MAP) Pulse Ox O2 Delivery O2 Flow Rate FiO2 09/18/22 13:15 122 09/18/22 12:35 98 Room Air 09/18/22 12:35 121 164/97 (119) Room Air 09/18/22 12:00 123 19 159/104 (122) Nasal Cannula 2.00 09/18/22 11:00 121 Nasal Cannula 2.00 09/18/22 10:00 109 25 152/98 (116) Nasal Cannula 2.00 09/18/22 09:22 Room Air 09/18/22 09:00 98 40 151/89 (109) 94 Nasal Cannula 2.00 09/18/22 08:00 61 16 148/63 (91) 94 Nasal Cannula 2.00 09/18/22 07:44 36.6 09/18/22 07:41 98 Room Air 09/18/22 07:39 61 09/18/22 07:00 67 162/65 (97) 95 Nasal Cannula 2.00 09/18/22 06:00 60 150/76 (100) 93 Nasal Cannula 2.00 09/18/22 05:00 60 159/75 (103) 88 Nasal Cannula 2.00 09/18/22 04:00 64 151/81 (104) 96 Nasal Cannula 2.00 09/18/22 04:00 96 Room Air 09/18/22 03:00 62 148/68 (94) 97 Nasal Cannula 2.00 09/18/22 02:00 61 145/71 (95) 96 Nasal Cannula 2.00 09/18/22 01:00 60 139/67 (91) 96 Nasal Cannula 2.00 09/18/22 01:00 60 09/18/22 00:00 97 Room Air 09/18/22 00:00 65 149/84 (105) 95 Nasal Cannula 2.00 09/17/22 23:00 94 127/89 (102) 95 Nasal Cannula 2.00 09/17/22 23:00 80 142/66 09/17/22 22:57 96 Room Air 09/17/22 22:00 74 158/90 (112) Nasal Cannula 2.00 09/17/22 21:45 80 157/69 (98) Nasal Cannula 2.00 09/17/22 20:39 75 14 147/64 (91) 95 Nasal Cannula 2.00 09/17/22 20:00 95 Room Air 09/17/22 19:56 65 14 147/67 (93) 94 Nasal Cannula 2.00 09/17/22 19:11 37.2 09/17/22 19:00 90 09/17/22 18:00 108 14 92 Nasal Cannula 2.00 09/17/22 17:00 75 21 120/69 (86) 92 Nasal Cannula 2.00 09/17/22 16:20 98 Nasal Cannula 2.00 09/17/22 16:00 66 15 145/89 (107) 87 Nasal Cannula 2.00 09/17/22 16:00 36.6 09/17/22 14:45 70 28 139/69 (92) 96 Nasal Cannula 2.00 I & O 09/18/22 07:00 Intake Total 1575 ml Output Total 2300 ml Balance -725 ml Capillary Refill : Less Than 3 SecondsLess Than 3 Seconds General Appearance: No Apparent Distress HEENT: PERRL/EOMI Neck: Full Range of Motion Respiratory: Decreased Breath Sounds, Rhonci Cardiovascular: Regular Rate, Rhythm Gastrointestinal: normal bowel sounds, non tender, soft, other (wounds dhruv an/dry) Extremity: Normal Capillary Refill Neurologic/Psychiatric: Alert, Oriented x3 Skin: Normal Color Lymphatic: No Adenopathy Results Lab Laboratory Tests 09/17/22 16:01: Glucometer 160H 09/17/22 20:50: Glucometer 168H 09/18/22 03:55: White Blood Count 20.8H, Red Blood Count 3.66L, Hemoglobin 11.1L, Hematocrit 33L , Mean Corpuscular Volume 91, Mean Corpuscular Hemoglobin 30, Mean Corpuscular Hemoglobin Concent 33, Red Cell Distribution Width 14.6H, Platelet Count 331, Mean Platelet Volume 11.7, Immature Granulocyte % (Auto) 6, Neutrophils (%) (Auto) 77H, Lymphocytes (%) (Auto) 10L, Monocytes (%) (Auto) 7, Eosinophils (%) (Auto) 0, Basophils (%) (Auto) 1, Neutrophils # (Auto) 16.0H, Lymphocytes # (Auto) 2.0, Monocytes # (Auto) 1.4H, Eosinophils # (Auto) 0.1, Basophils # (Auto) 0.1, Immature Granulocyte # (Auto) 1.2H, Sodium Level 133L, Potassium Level 3.6, Chloride Level 104, Carbon Dioxide Level 20L, Anion Gap 9, Blood Urea Nitrogen 17, Creatinine 0.75, Estimat Glomerular Filtration Rate 88, BUN/Creatinine Ratio 23, Glucose Level 288H, Calcium Level 7.8L, Corrected Calcium 8.8, Phosphorus Level 2.1L, Magnesium Level 1.9, Total Bilirubin 0.4, Aspartate Amino Transf (AST/SGOT) 36H, Alanine Aminotransferase (ALT/SGPT) 48, Alkaline Phosphatase 93, Total Protein 5.1L, Albumin 2.7L, Digoxin Level 0.50L 09/18/22 05:44: Glucometer 178H 09/18/22 10:46: Glucometer 181H 09/18/22 11:30: Urine Color YELLOW, Urine Clarity CLEAR, Urine pH 5.5, Urine Specific [place] >=1.030, Urine Protein TRACEH, Urine Glucose (UA) 2+H, Urine Ketones NEGATIVE, Urine Nitrite NEGATIVE, Urine Bilirubin NEGATIVE, Urine Urobilinogen 0.2, Urine Leukocyte Esterase NEGATIVE, Urine RBC (Auto) 1+H, Urine RBC 2-5H, Urine WBC 0- 2, Urine Crystals NONE, Urine Bacteria TRACE, Urine Casts NONE, Urine Mucus NEGATIVE, Urine Yeast FEWH, Urine Culture Indicated YES Microbiology 09/15/22 C. difficile GDH Antigen & Toxins - Final, Complete Assessment/Plan Assessment/Plan Assess & Plan/Chief Complaint s/p laparoscopic cholecystectomy and umbilical hernia repair. ambulate. no heavy lifting exertion for 2 weeks. await HR control. ok to restart home OAC. developed ileus x2 however resolving with multiple loose BM's and now tolerating PUD diet. rate control per cardiology restarted home PO abixiban and plavix. continue ambulating. when tolerating adequate volume of PO nutrition, pt may be discharged home from surgical standpoint. CONCHA OLIVER MD Sep 18, 2022 14:45
[2022-09-18] MEDS ORDERED: fluCOnazole (DIFLUCAN) 100 MG TAB PO NR (15:00)
[2022-09-18] MEDS ORDERED: FLUC100T10 PO (15:50)
[2022-09-18] MEDS ORDERED: ONDA4TAB11 SL (15:50)
[2022-09-18] MEDS ORDERED: CEFD300C3 PO (15:50)
[2022-09-18 15:59] VITALS: BP 137/79
[2022-09-18] MEDS ORDERED: SODIUM ACETATE IV SCH ×11 (17:00)
[2022-09-18] MEDS ORDERED: SODIUM CHLORIDE IV SCH ×11 (17:00)
[2022-09-18] MEDS ORDERED: [UNRECOGNIZED DRUG - OTHER] IV SCH ×11 (17:00)
[2022-09-18 19:32] VITALS: BP 144/81
[2022-09-18] MEDS: APIXABAN 5 MG (ELIQUIS) TABLET PO SCH (21:01)
[2022-09-18] MEDS: CEFDINIR 300 MG (OMNICEF) CAP PO SCH (21:01)
[2022-09-18 22:14] VITALS: BP 140/92
[2022-09-19 00:23] VITALS: BP 148/64
[2022-09-19 00:54] VITALS: BP 148/64
[2022-09-19] MEDS: METOCLOPRAMIDE INJ 10 MG/2 ML (REGLAN) IVP SCH ×3 (02:06→15:03)
[2022-09-19 04:10] VITALS: BP 132/80
[2022-09-19 06:26] LABS: BASOPHILS # (AUTO) 0.1 10^3/uL (0.0-0.1); BASOPHILS % (AUTO) 0 % (0-10); EOSINOPHILS % (AUTO) 0 % (0-10); HEMATOCRIT 29 % (40-54); HEMOGLOBIN 9.8 g/dL (13.3-17.7); LYMPHOCYTES # (AUTO) 1.2 10^3/uL (1.0-4.0); LYMPHOCYTES % (AUTO) 6 % (12-44); MEAN CORPUSCULAR HEMOGLOBIN 31 pg (25-34); MEAN CORPUSCULAR HGB CONC 33 g/dL (32-36); MEAN CORPUSCULAR VOLUME 92 fL (80-99); MONOCYTES # (AUTO) 1.5 10^3/uL (0.0-1.0); MONOCYTES % (AUTO) 8 % (0-12); NEUTROPHILS # (AUTO) 14.8 10^3/uL (1.8-7.8); NEUTROPHILS % (AUTO) 80 % (42-75); PLATELET COUNT 315 10^3/uL (130-400); WHITE BLOOD COUNT 18.5 10^3/uL (4.3-11.0)
[2022-09-19] MEDS: inSUlin ASPART (NovoLOG) 1 UNIT/0.01 ML (CHARGE PER UNIT) SC SCH ×2 (06:33→11:20)
[2022-09-19 06:48] LABS: ALBUMIN 2.7 GM/DL (3.2-4.5); BILIRUBIN,TOTAL 0.4 MG/DL (0.1-1.0); CALCIUM 7.8 MG/DL (8.5-10.1); CREATININE SERUM 0.78 MG/DL (0.60-1.30); POTASSIUM 3.9 MMOL/L (3.6-5.0); TOTAL PROTEIN 4.9 GM/DL (6.4-8.2)
[2022-09-19 06:56] LABS: BAND NEUTROPHILS 2 %; LYMPHOCYTES % (MANUAL) 4 %; METAMYELOCYTES % 1 %; MONOCYTES % (MANUAL) 8 %; MYELOCYTES % 2 %; NEUTROPHILS % (MANUAL) 83 %; RBC MORPH NORMAL
[2022-09-19 07:42] VITALS: BP 137/81
[2022-09-19] MEDS: PANTOPRAZOLE 40 MG (PROTONIX) VIAL IV SCH (08:27)
[2022-09-19] MEDS: CLOPIDOGREL 75 MG (PLAVIX) TABLET PO SCH (08:27)
[2022-09-19] MEDS: meTOproloL SUCCINATE 50 MG (TOPROL XL) TAB PO SCH (08:27)
[2022-09-19] MEDS: CEFDINIR 300 MG (OMNICEF) CAP PO SCH (08:27)
[2022-09-19] MEDS: DOCUSATE SODIUM 100 MG (COLACE) CAP PO SCH (08:27)
[2022-09-19] MEDS: SENNOSIDES 8.6 MG (SENOKOT) TAB PO SCH (08:27)
[2022-09-19] MEDS: BISACODYL 10 MG SUPP (DULCOLAX) PR SCH (08:28)
[2022-09-19] MEDS: APIXABAN 5 MG (ELIQUIS) TABLET PO SCH (08:32)
--- NOTE | 2022-09-19 08:59 | Progress Note - Cardiology ---
Cardiology SOAP Progress Note Objective: I&O/Vital Signs 09/19/22 09/19/22 09/19/22 09/19/22 00:23 00:54 01:00 04:10 Temp 36.8 36.8 36.2 Pulse 87 87 124 110 Resp 18 18 B/P (MAP) 148/64 (92) 132/80 (97) Pulse Ox 96 96 95 O2 Delivery Room Air Room Air FiO2 21 09/19/22 09/19/22 09/19/22 09/19/22 07:00 07:42 08:00 09:12 Temp 37.0 Pulse 124 118 Resp 24 B/P (MAP) 137/81 (99) Pulse Ox 96 96 O2 Delivery Room Air Room Air Room Air O2 Flow Rate 0.00 09/19/22 00:00 Intake Total 2142 ml Balance 2142 ml Weight (Pounds): 185 Weight (Ounces): 0.0 Weight (Calculated Kilograms): 83.561736 Constitutional: AAO x 3, well-developed, well-nourished Respiratory: No accessory muscle use, No respiratory distress; lungs clear to auscultation Cardiovascular: irregularly irregular; No JVD Gastrointestional: No guarding; audible bowel sounds (hypoactive) Extremities: no lower extremity edema bilateral Neurologic/Psychiatric: grossly intact (moves all extremities) Skin: No rash on exposed areas, No ulcerations on exposed areas Results/Procedures: Labs Laboratory Tests 09/18/22 11:30: Urine Color YELLOW, Urine Clarity CLEAR, Urine pH 5.5, Urine Specific [place] >=1.030, Urine Protein TRACEH, Urine Glucose (UA) 2+H, Urine Ketones NEGATIVE, Urine Nitrite NEGATIVE, Urine Bilirubin NEGATIVE, Urine Urobilinogen 0.2, Urine Leukocyte Esterase NEGATIVE, Urine RBC (Auto) 1+H, Urine RBC 2-5H, Urine WBC 0- 2, Urine Crystals NONE, Urine Bacteria TRACE, Urine Casts NONE, Urine Mucus NEGATIVE, Urine Yeast FEWH, Urine Culture Indicated YES 09/19/22 06:00: White Blood Count 18.5H, Red Blood Count 3.19L, Hemoglobin 9.8L, Hematocrit 29L, Mean Corpuscular Volume 92, Mean Corpuscular Hemoglobin 31, Mean Corpuscular Hemoglobin Concent 33, Red Cell Distribution Width 14.6H, Platelet Count 315, Mean Platelet Volume 12.0, Immature Granulocyte % (Auto) 5, Neutrophils (%) ( Auto) 80H, Lymphocytes (%) (Auto) 6L, Monocytes (%) (Auto) 8, Eosinophils (%) (Auto) 0, Basophils (%) (Auto) 0, Neutrophils # (Auto) 14.8H, Lymphocytes # (Auto) 1.2, Monocytes # (Auto) 1.5H, Eosinophils # (Auto) 0.0, Basophils # (Auto) 0.1, Immature Granulocyte # (Auto) 0.9H, Neutrophils % (Manual) 83, Lymphocytes % (Manual) 4, Monocytes % (Manual) 8, Metamyelocytes % 1, Myelocytes % 2, Band Neutrophils 2, Blood Morphology Comment NORMAL, Sodium Level 136, Potassium Level 3.9, Chloride Level 106, Carbon Dioxide Level 24, Anion Gap 6, Blood Urea Nitrogen 19H, Creatinine 0.78, Estimat Glomerular Filtration Rate 87, BUN/Creatinine Ratio 24, Glucose Level 194H, Calcium Level 7.8L, Corrected Calcium 8.8, Phosphorus Level 2.3, Magnesium Level 2.0, Total Bilirubin 0.4, Aspartate Amino Transf (AST/SGOT) 34, Alanine Aminotransferase (ALT/SGPT) 43, Alkaline Phosphatase 124, Total Protein 4.9L, Albumin 2.7L Microbiology 09/15/22 C. difficile GDH Antigen & Toxins - Final, Complete A/P: Assessment: Acute cholecystitis, status postcholecystectomy done on September 07, 2022. - Status post acute respiratory failure postoperatively on September 07, 2022 required BiPAP. - Postop ileus. Slow improvement - Postop leukocytosis Stool for C. difficile was negative.Maintained on cefepime and metronidazole per Med Svce Permanent a-fib/flutter - rate improved but not well controlled - Receiving Lovenox - Eliquis being held per surgical services - when deemed suitable by surgical services advise changing back to Eliquis Acute on Chronic diastolic congestive heart failure - Echo was done in March 2022 with normal left ventricular systolic function ejection fraction 60 to 65% with dilated left atrium and pulmonary hypertension with PA pressure 40 to 45 mmHg - Clinically compensated Coronary artery disease, history of non-ST elevation myocardial infarction in March 2022 - Cardiac cath of 07-14-18: 90% [id number] vessel stenosis of the left anterior descending artery within a small caliber vessel to which balloon angioplasty was carried out which reduced the stenosis to less than 50%. The rest of the coronary vessels have moderate diffuse disease. There is a patent stent in the right coronary with a 50% in-stent restenosis (unchanged compared to previous study). Elevated left ventricular end-diastolic pressure. - MPI of 12/07/19: no ischemia or infarction, LVEF 48% (appeared to be higher, subjectively) - Card cath on 03/25/22 after cardiac arrest: 90-85 prox and mid LAD stenosis treated with PTCA and then 2.25 x 23 mm GABRIELA, distal LAD, distal LCX, and prox RI have severe disease that is not amenable to intervention, RCA is dominant with patent prox stent with up to 50 instent and distal RCA with up to 50 stenoses, LVEDP 22 mmHg - Had been maintained on aspirin and Plavix last taken on September 05, 2022. - currently being withheld d/t post op site oozing - receiving Lovenox History of syncope and collapse reported pulseless per family on March 24, 2022. Had chest compression Loop monitor implanted on March 26, 2022. History of rib fractures after chest compression Hypertension, continue to monitor blood pressure Hyperlipidemia, maintained on statin. Currently on hold History of umbilical hernia. Questionable underlying sleep apnea Lumbar spondylosis and spinal stenosis, followed by Dr. Mahan Plan: Complex management Management of ileus per surgical services HR not well controlled - increase CCB Continue Eliquis Monitor lab closely SO MARCIAL Sep 19, 2022 08:59
[2022-09-19] MEDS ORDERED: fluCOnazole (DIFLUCAN) 100 MG TAB PO SCH (09:00)
[2022-09-19] MEDS ORDERED: dilTIAZem120 MG (CARDIZEM CD) CAP PO ONE (09:00)
[2022-09-19] MEDS: RT-ALBUTEROL SULF 2.5 MG/3 ML PRE-MIX VIAL INH SCH (09:12)
--- NOTE | 2022-09-19 09:17 | Progress Note - Cardiology ---
Cardiology SOAP Progress Note Subjective: Gen malaise and weakness present No n/v/d No focal weakness No cp No shortness of breath at rest Denies palp or syncope Objective: I&O/Vital Signs 09/18/22 09/19/22 09/19/22 09/19/22 22:14 00:23 00:54 01:00 Temp 37.0 36.8 36.8 Pulse 122 87 87 124 Resp 20 18 B/P (MAP) 140/92 (108) 148/64 (92) Pulse Ox 97 96 96 O2 Delivery Room Air Room Air FiO2 21 09/19/22 09/19/22 09/19/22 04:10 07:00 07:42 Temp 36.2 37.0 Pulse 110 124 118 Resp 18 24 B/P (MAP) 132/80 (97) 137/81 (99) Pulse Ox 95 96 O2 Delivery Room Air Room Air 09/19/22 00:00 Intake Total 2142 ml Balance 2142 ml Weight (Pounds): 185 Weight (Ounces): 0.0 Weight (Calculated Kilograms): 83.494447 Constitutional: AAO x 3, well-developed, well-nourished Respiratory: No accessory muscle use, No respiratory distress; lungs clear to auscultation Cardiovascular: irregularly irregular; No JVD Gastrointestional: No guarding; audible bowel sounds (hypoactive) Extremities: no lower extremity edema bilateral Neurologic/Psychiatric: grossly intact (moves all extremities) Skin: No rash on exposed areas, No ulcerations on exposed areas Results/Procedures: Labs Laboratory Tests 09/18/22 10:46: Glucometer 181H 09/18/22 11:30: Urine Color YELLOW, Urine Clarity CLEAR, Urine pH 5.5, Urine Specific [place] >=1.030, Urine Protein TRACEH, Urine Glucose (UA) 2+H, Urine Ketones NEGATIVE, Urine Nitrite NEGATIVE, Urine Bilirubin NEGATIVE, Urine Urobilinogen 0.2, Urine Leukocyte Esterase NEGATIVE, Urine RBC (Auto) 1+H, Urine RBC 2-5H, Urine WBC 0- 2, Urine Crystals NONE, Urine Bacteria TRACE, Urine Casts NONE, Urine Mucus NEGATIVE, Urine Yeast FEWH, Urine Culture Indicated YES 09/19/22 06:00: White Blood Count 18.5H, Red Blood Count 3.19L, Hemoglobin 9.8L, Hematocrit 29L, Mean Corpuscular Volume 92, Mean Corpuscular Hemoglobin 31, Mean Corpuscular Hemoglobin Concent 33, Red Cell Distribution Width 14.6H, Platelet Count 315, Mean Platelet Volume 12.0, Immature Granulocyte % (Auto) 5, Neutrophils (%) (Auto) 80H, Lymphocytes (%) (Auto) 6L, Monocytes (%) (Auto) 8, Eosinophils (%) (Auto) 0, Basophils (%) (Auto) 0, Neutrophils # (Auto) 14.8H, Lymphocytes # (Auto) 1.2, Monocytes # (Auto) 1.5H, Eosinophils # (Auto) 0.0, Basophils # (Auto) 0.1, Immature Granulocyte # (Auto) 0.9H, Neutrophils % (Manual) 83, Lymphocytes % (Manual) 4, Monocytes % (Manual) 8, Metamyelocytes % 1, Myelocytes % 2, Band Neutrophils 2, Blood Morphology Comment NORMAL, Sodium Level 136, Potassium Level 3.9, Chloride Level 106, Carbon Dioxide Level 24, Anion Gap 6, Blood Urea Nitrogen 19H, Creatinine 0.78, Estimat Glomerular Filtration Rate 87, BUN/Creatinine Ratio 24, Glucose Level 194H, Calcium Level 7.8L, Corrected Calcium 8.8, Phosphorus Level 2.3, Magnesium Level 2.0, Total Bilirubin 0.4, Aspartate Amino Transf (AST/SGOT) 34, Alanine Aminotransferase (ALT/SGPT) 43, Alkaline Phosphatase 124, Total Protein 4.9L, Albumin 2.7L Microbiology 09/15/22 C. difficile GDH Antigen & Toxins - Final, Complete A/P: Assessment: Acute cholecystitis, status postcholecystectomy done on September 07, 2022. - Status post acute respiratory failure postoperatively on September 07, 2022 required BiPAP. - Postop ileus. Slow improvement - Postop leukocytosis Stool for C. difficile was negative.Maintained on cefepime and metronidazole per Med Svce Permanent a-fib/flutter - rate improved but not well controlled - Receiving Lovenox - Eliquis being held per surgical services - when deemed suitable by surgical services advise changing back to Eliquis Acute on Chronic diastolic congestive heart failure - Echo was done in March 2022 with normal left ventricular systolic function ejection fraction 60 to 65% with dilated left atrium and pulmonary hypertension with PA pressure 40 to 45 mmHg - Clinically compensated Coronary artery disease, history of non-ST elevation myocardial infarction in March 2022 - Cardiac cath of 07-14-18: 90% [id number]-ax-funfct vessel stenosis of the left anterior descending artery within a small caliber vessel to which balloon angioplasty was carried out which reduced the stenosis to less than 50%. The rest of the coronary vessels have moderate diffuse disease. There is a patent stent in the right coronary with a 50% in-stent restenosis (unchanged compared to previous study). Elevated left ventricular end-diastolic pressure. - MPI of 12/07/19: no ischemia or infarction, LVEF 48% (appeared to be higher, subjectively) - Card cath on 03/25/22 after cardiac arrest: 90-85 prox and mid LAD stenosis treated with PTCA and then 2.25 x 23 mm GABRIELA, distal LAD, distal LCX, and prox RI have severe disease that is not amenable to intervention, RCA is dominant with patent prox stent with up to 50 instent and distal RCA with up to 50 stenoses, LVEDP 22 mmHg - Had been maintained on aspirin and Plavix last taken on September 05, 2022. - currently being withheld d/t post op site oozing - receiving Lovenox History of syncope and collapse reported pulseless per family on March 24, 2022. Had chest compression Loop monitor implanted on March 26, 2022. History of rib fractures after chest compression Hypertension, continue to monitor blood pressure Hyperlipidemia, maintained on statin. Currently on hold History of umbilical hernia. Questionable underlying sleep apnea Lumbar spondylosis and spinal stenosis, followed by Dr. Mahan Plan: Complex management Management of ileus per surgical services HR not well controlled - increase CCB Continue Eliquis Monitor lab closely RG OLIVEIRA MD FACP FACC CCDS Sep 19, 2022 09:16
--- NOTE | 2022-09-19 09:59 | Physical Therapy Progress Note ---
Therapy Progress Note Received new PT orders when patient transferred from ICU to the medical floor. Patient has previously been discharged from PT services because patient was ambulating several times a day with nursing without assist. Patient will continue to ambulate with nursing and DC from PT. Please clarify if patient has had a decline in function or strength and needs to be reassessed by PT. SULTANA HEALY PT Sep 19, 2022 09:59
[2022-09-19 11:14] VITALS: BP 129/77
--- NOTE | 2022-09-19 11:20 | Occupational Ther Daily Note ---
OT Current Status-Daily Note Subjective Pt dozing in chair, woke easily to name. Pt agrees to therapy. Pt c/o R wrist pain, did not rate, stated that he is able to functional use it for all tasks. Mental Status/Objective Patient Orientation: Person, Place, Time, Situation Attachments: IV ADL-Treatment Therapy Code Descriptions/Definitions Functional [place] Measure: 0=Not Assessed/NA 4=Minimal Assistance 1=Total Assistance 5=Supervision or Setup 2=Maximal Assistance 6=Modified [place] 3=Moderate Assistance 7=Complete IndependenceSCALE: Activities may be completed with or without assistive devices. 6-Ahcvtbcoou-pzeaxem completes the activity by him/herself with no assistance from a helper. 5-Set-up or Clean-up Assistance-helper sets up or cleans up; patient completes activity. [place] assists only prior to or following the activity. 4-Supervision or Touching Assistance-helper provides verbal cues and/or touching/steadying and/or contact guard assistance as patient completes activity. Assistance may be provided throughout the activity or intermittently. 3-Partial/Moderate Assistance-helper does LESS THAN HALF the effort. [place] lifts, holds or supports trunk or limbs, but provides less than half the effort. 2-Substantial/Maximal Assistance-helper does MORE THAN HALF the effort. [place] lifts or holds trunk or limbs and provides more than half the effort. 1-Wbxznemyu-dkhens does ALL the effort. Patient does none of the effort to complete the activity. Or, the assistance of 2 or more helpers is required for the patient to complete the activity. If activity was not attempted, code reason: 7-Patient Refused. 9-Not Applicable-not attempted and the patient did not perform the activity before the current illness, exacerbation or injury. 10-Not Attempted due to Environmental Limitations-(lack of equipment, weather restraints, etc.). 88-Not Attempted due to Medical Conditions or Safety Concerns. Other Treatment Pt given light to medium therapy foam to increase strength for grasp/pinch during daily functional tasks and to decrease edema. Pt able to complete 2 sets of 20 reps finger flex/ext without difficulty. Pt states that he does not have any concerns for OT services. CURIEL to check one more time on pt before dismissing services. After session, pt sitting in recliner with call light/phone in reach. All needs met. OT Technical Operator Goals Technical Operator Goals Time Frame: Sep 27, 2022 Toileting Hygiene (QC): 6 Upper Body Dressing (QC): 6 Lower Body Dressing (QC): 6 On/Off Footwear (QC): 6 Additional Goals: 1-Demonstrate ADL Tasks, 2-Verbalize Understanding, 3- ImproveStrength/Roro 1=Demonstrate adherence to instructed precautions during ADL tasks. 2=Patient will verbalize/demonstrate understanding of assistive devices/modifications for ADL. 3=Patient will improve strength/tolerance for activity to enable patient to perform ADL's. OT Education/Plan Problem List/Assessment Assessment: Restricted Funct UE ROM (pain) Pt would benefit from short term skilled OT services in order to increase safety and independence with ADLS in order to maximize LOF for safe return home. Discharge Recommendations Plan/Recommendations: Continue POC Treatment Plan/Plan of Care Patient would benefit from OT for education, treatment and training to promote independence in ADL's, mobility, safety and/or upper extremity function for ADL's. Plan of Care: ADL Retraining, Functional Mobility, UE Funct Exercise/Act Treatment Duration: Sep 27, 2022 Frequency: 3 times per week (3-5 times per week) Rehab Potential: Fair Time Start Time: 10:58 Stop Time: 11:06 DATE: Sep 19, 2022 Total Time Billed (hr/min): 8 Billed Treatment Time 1 visit-EX 1 (8 min) LUAN VALADEZ Sep 19, 2022 11:20
[2022-09-19] MEDS ORDERED: DILT180C85 PO (12:36)
[2022-09-19] MEDS ORDERED: HYDR-34 PO (12:36)
--- NOTE | 2022-09-19 12:37 | D/C HH Face to Face Order ---
D/C Face to Face Orders Reconcile Patient Problems Problems Reviewed?: Yes Instructions for Patient Via [facility] [employer], Patient Instructions/FollowUp: PCP 1 week Physician to follow Patient: PCP Discharge Diet for Home: No Restrictions Patient Problems: s/p choly Ileus AF Patient Data-Allergies,Ht & Wt Patient Allergies: Coded Allergies: No Known Drug Allergies (Verified , 09/05/22) Height (Feet): 5 Height (Inches): 8.00 Weight (Pounds): 185 Weight (Ounces): 0.0 Home Health Need/Face to Face Date of Face to Face: Sep 19, 2022 Clinical Findings: Generalized weakness and fatigue, Instability, Muscle weakness I have seen Pt [id number]: Yes Discharged To: Home Diagnosis/Conditions: Choly Patient is Homebound due to: Farrah fall risk due to instabilty, Muscle weakness Homebound Status Due to the above stated illness, injury or surgical procedure (medical condition or diagnosis) and associated clinical findings, the patient is homebound because of his/her inability to leave home except with aid of a supportive device and/or person AND leaving the home requires a considerable and taxing effort or is medically contraindicated. Pt req the following assistanc: [facility] Nursing Orders Home Health Services Order: Nursing Services, Starch Dumper-Evaluate & Treat, Physical Therapy-Evaluate & Treat Home Health Infusion Therapy Line Start Date: Sep 13, 2022 Certify Stmt I certify that this patient is under my care and that I, a nurse practitioner or a physician; a speech language pathologist assistant working with me, had a face to face encounter that - meets the physician face to face encounter requirements with this patient as dated. KAREN JJ DO Sep 19, 2022 12:37
--- NOTE | 2022-09-19 12:39 | Discharge Summary ---
Diagnosis/Chief Complaint Date of Admission Sep 05, 2022 at 19:41 Date of Discharge Discharge Date: Sep 19, 2022 Discharge Diagnosis 1. Postoperative ileus on 09/09/2022 - TPN - oral intake permitted by surgery; will proceed gradually pending patient readiness 2. Acute cholecystitischolecystectomy postop day #11 3. A-fib with RVR / History of chronic atrial fibrillation - diltiazem PO, metoprolol PO and digoxin per cardiology - clopidogrel restarted per cardiology - plans to d/c lovenox and restart eliquis per cardiology 4. Leukocytosis - 20.8 at 3:55 am; an increase from yesterday (18.8), though overall trending down since admission (24.2) 5. Hypokalemia - resolved 6. CHF with preserved EF 7. 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 HTN Discharge Summary Discharge Physical Examination Allergies: Coded Allergies: No Known Drug Allergies (Verified , 09/05/22) Vitals & I&Os Vital Signs Date Time Temp Pulse Resp B/P (MAP) Pulse Ox O2 Delivery O2 Flow Rate FiO2 09/19/22 16:00 36.7 126 18 129/77 96 Room Air 0.00 09/19/22 00:54 21 General Appearance: Alert, Oriented X3, Cooperative Respiratory: Clear to Auscultation Cardiovascular: Regular Rate Psych/Mental Status: Mental Status NL Hospital Course Was the Problem List Reviewed?: Yes 87 yo M with a history of chronic atrial fibrillation, CHF and CAD amongst other chronic health conditions admitted on 09/05 for cholycystitis. Cholecystectomy was done 09/07 and post-operative ileus developed on 09/09. He was transitioned to TPN at this time and remained NPO until 09/18 with close monitoring. He additionally completed a course of empiric antibiotics. His atrial-fibrillation required several IV then oral agents throughout his stay, which improved but did not fully control the rate. Oral intake was restarted 09/18; prior to discharge he had several solid meals without difficulty or abdominal discomfort. [facility] (last 24 hrs) Laboratory Tests 09/05/22 17:09: White Blood Count 20.1H, Red Blood Count 4.97, Hemoglobin 15.5, Hematocrit 46, Mean Corpuscular Volume 93, Mean Corpuscular Hemoglobin 31, Mean Corpuscular Hemoglobin Concent 34, Red Cell Distribution Width 13.9, Platelet Count 229, Mean Platelet Volume 11.2, Immature Granulocyte % (Auto) 1, Neutrophils (%) (Auto) 87H, Lymphocytes (%) (Auto) 4L, Monocytes (%) (Auto) 8, Eosinophils (%) (Auto) 1, Basophils (%) (Auto) 0, Neutrophils # (Auto) 17.4H, Lymphocytes # (Auto) 0.8L, Monocytes # (Auto) 1.6H, Eosinophils # (Auto) 0.1, Basophils # (Auto) 0.0, Immature Granulocyte # (Auto) 0.1, Neutrophils % (Manual) 88, Lymphocytes % (Manual) 3, Monocytes % (Manual) 8, Band Neutrophils 1, Blood Morphology Comment NORMAL, Sodium Level 137, Potassium Level 3.6, Chloride Level 96L, Carbon Dioxide Level 22, Anion Gap 19H, Blood Urea Nitrogen 19H, Creatinine 1.42H, Estimat Glomerular Filtration Rate 48, BUN/Creatinine Ratio 13, Glucose Level 186H, Calcium Level 9.9, Corrected Calcium , Total Bilirubin 1.4H, Aspartate Amino Transf (AST/SGOT) 25, Alanine Aminotransferase (ALT/SGPT) 23, Alkaline Phosphatase 76, Total Protein 7.9, Albumin 4.7H, Lipase 28 09/05/22 17:36: Urine Color YELLOW, Urine Clarity CLOUDY, Urine pH 6.0, Urine Specific [place] >=1.030, Urine Protein 1+H, Urine Glucose (UA) NEGATIVE, Urine Ketones NEGATIVE, Urine Nitrite NEGATIVE, Urine Bilirubin NEGATIVE, Urine Urobilinogen 0.2, Urine Leukocyte Esterase NEGATIVE, Urine RBC (Auto) TRACE-IH, Urine RBC NONE, Urine WBC 2-5, Urine Crystals NONE, Urine Bacteria TRACE, Urine Casts NONE, Urine Mucus NEGATIVE, Urine Culture Indicated NO 09/06/22 04:32: White Blood Count 21.2H, Red Blood Count 4.78, Hemoglobin 14.7, Hematocrit 45, Mean Corpuscular Volume 93, Mean Corpuscular Hemoglobin 31, Mean Corpuscular Hemoglobin Concent 33, Red Cell Distribution Width 13.9, Platelet Count 181, Mean Platelet Volume 11.6, Immature Granulocyte % (Auto) 1, Neutrophils (%) (Auto) 81H, Lymphocytes (%) (Auto) 6L, Monocytes (%) (Auto) 11, Eosinophils (%) (Auto) 1, Basophils (%) (Auto) 0, Neutrophils # (Auto) 17.2H, Lymphocytes # (Auto) 1.3, Monocytes # (Auto) 2.3H, Eosinophils # (Auto) 0.2, Basophils # (Auto) 0.0, Immature Granulocyte # (Auto) 0.2H, Sodium Level 136, Potassium Level 3.9, Chloride Level 98, Carbon Dioxide Level 27, Anion Gap 11, Blood Urea Nitrogen 20H, Creatinine 1.36H, Estimat Glomerular Filtration Rate 51, BUN/Creatinine Ratio 15, Glucose Level 137H, Calcium Level 9.4, Corrected Calcium 9.4, Total Bilirubin 2.5H, Aspartate Amino Transf (AST/SGOT) 172H, Alanine Aminotransferase (ALT/SGPT) 97H, Alkaline Phosphatase 96, Total Protein 7.0, Albumin 4.0, Magnesium Level 2.1 09/07/22 04:13: White Blood Count 18.3H, Red Blood Count 4.51, Hemoglobin 13.7, Hematocrit 42, Mean Corpuscular Volume 93, Mean Corpuscular Hemoglobin 30, Mean Corpuscular Hemoglobin Concent 33, Red Cell Distribution Width 14.2, Platelet Count 165, Mean Platelet Volume 11.0, Immature Granulocyte % (Auto) 1, Neutrophils (%) (Auto) 83H, Lymphocytes (%) (Auto) 6L, Monocytes (%) (Auto) 9, Eosinophils (%) (Auto) 1, Basophils (%) (Auto) 0, Neutrophils # (Auto) 15.2H, Lymphocytes # (Auto) 1.1, Monocytes # (Auto) 1.7H, Eosinophils # (Auto) 0.1, Basophils # (Au to) 0.0, Immature Granulocyte # (Auto) 0.2H, Sodium Level 135, Potassium Level 3.3L, Chloride Level 100, Carbon Dioxide Level 23, Anion Gap 12, Blood Urea Nitrogen 21H, Creatinine 1.29, Estimat Glomerular Filtration Rate 54, BUN/Creatinine Ratio 16, Glucose Level 130H, Calcium Level 8.8, Corrected C alcium 9.2, Total Bilirubin 2.6H, Aspartate Amino Transf (AST/SGOT) 153H, A lanine Aminotransferase (ALT/SGPT) 165H, Alkaline Phosphatase 113, Total Protein 6.4, Albumin 3.5, Magnesium Level 2.2 09/08/22 04:15: White Blood Count 11.9H, Red Blood Count 4.24L, Hemoglobin 13.0L, Hematocrit 40, Mean Corpuscular Volume 93, Mean Corpuscular Hemoglobin 31, Mean Corpuscular Hemoglobin Concent 33, Red Cell Distribution Width 14.4, Platelet Count 194, Mean Platelet Volume 11.2, Immature Granulocyte % (Auto) 1, Neutrophils (%) (Auto) 80H, Lymphocytes (%) (Auto) 8L, Monocytes (%) (Auto) 11, Eosinophils (%) (Auto) 1, Basophils (%) (Auto) 0, Neutrophils # (Auto) 9.6H, Lymphocytes # (Auto) 0.9L, Monocytes # (Auto) 1.3H, Eosinophils # (Auto) 0.1, Basophils # (Auto) 0.0, Immature Granulocyte # (Auto) 0.1, Sodium Level 137, Potassium Level 3.3L, Chloride Level 103, Carbon Dioxide Level 20L, Anion Gap 14, Blood Urea Nitrogen 25H, Creatinine 1.34H, Estimat Glomerular Filtration Rate 52, BUN/Creatinine Ratio 19, Glucose Level 134H, Calcium Level 8.4L, Corrected Calcium 9.0, Magnesium Level 2.3, Total Bilirubin 1.3H, Aspartate Amino Transf (AST/SGOT) 104H, Alanine Aminotransferase (ALT/SGPT) 122H, Alkaline Phosphatase 113, Total Protein 6.1L, Albumin 3.3 09/09/22 02:55: White Blood Count 11.2H, Red Blood Count 4.29L, Hemoglobin 13.1L, Hematocrit 40, Mean Corpuscular Volume 94, Mean Corpuscular Hemoglobin 31, Mean Corpuscular Hemoglobin Concent 33, Red Cell Distribution Width 14.4, Platelet Count 234, Mean Platelet Volume 10.9, Immature Granulocyte % (Auto) 1, Neutrophils (%) (Auto) 78H, Lymphocytes (%) (Auto) 6L, Monocytes (%) (Auto) 14H, Eosinophils (%) (Auto) 0, Basophils (%) (Auto) 0, Neutrophils # (Auto) 8.7H, Lymphocytes # (Auto) 0.7L, Monocytes # (Auto) 1.6H, Eosinophils # (Auto) 0.0, Basophils # (Auto) 0.0, Immature Granulocyte # (Auto) 0.1, Sodium Level 138, Potassium Level 3.4L, Chloride Level 102, Carbon Dioxide Level 24, Anion Gap 12, Blood Urea Nitrogen 35H, Creatinine 1.54H, Estimat Glomerular Filtration Rate 44, BUN/Creatinine Ratio 23, Glucose Level 147H, Calcium Level 8.7, Corrected Calcium 9.3, Magnesium Level 2.3, Total Bilirubin 1.2H, Aspartate Amino Transf (AST/SGOT) 51H, Alanine Aminotransferase (ALT/SGPT) 80H, Alkaline Phosphatase 105, Total Protein 6.3L, Albumin 3.2 09/10/22 04:07: White Blood Count 10.0, Red Blood Count 3.95L, Hemoglobin 12.2L, Hematocrit 37L, Mean Corpuscular Volume 95, Mean Corpuscular Hemoglobin 31, Mean Corpuscular Hemoglobin Concent 33, Red Cell Distribution Width 14.6H, Platelet Count 253, Mean Platelet Volume 10.6, Immature Granulocyte % (Auto) 2, Neutrophils (%) (Auto) 77H, Lymphocytes (%) (Auto) 9L, Monocytes (%) (Auto) 12, Eosinophils (%) (Auto) 0, Basophils (%) (Auto) 0, Neutrophils # (Auto) 7.7, Lymphocytes # (Auto) 0.9L, Monocytes # (Auto) 1.2H, Eosinophils # (Auto) 0.0, Basophils # (Auto) 0.0, Immature Granulocyte # (Auto) 0.2H, Sodium Level 141, Potassium Level 3.7, Chlor stephani Level 106, Carbon Dioxide Level 22, Anion Gap 13, Blood Urea Nitrogen 37H, Creatinine 1.29, Estimat Glomerular Filtration Rate 54, BUN/Creatinine Ratio 29, Glucose Level 126H, Calcium Level 8.8, Corrected Calcium 9.5, Magnesium Level 2.5H, Total Bilirubin 0.7, Aspartate Amino Transf (AST/SGOT) 33, Alanine Aminotransferase (ALT/SGPT) 57H, Alkaline Phosphatase 90, Total Protein 6.1L, Albumin 3.1L, Digoxin Level 0.70L 09/11/22 03:24: White Blood Count 8.8, Red Blood Count 4.01L, Hemoglobin 11.9L, Hematocrit 38L, Mean Corpuscular Volume 95, Mean Corpuscular Hemoglobin 30, Mean Corpuscular Hemoglobin Concent 31L, Red Cell Distribution Width 14.6H, Platelet Count 271, Mean Platelet Volume 10.2, Immature Granulocyte % (Auto) 4, Neutrophils (%) (Auto) 71, Lymphocytes (%) (Auto) 10L, Monocytes (%) (Auto) 14H, Eosinophils (%) (Auto) 0, Basophils (%) (Auto) 1, Neutrophils # (Auto) 6.2, Lymphocytes # (Auto) 0.9L, Monocytes # (Auto) 1.2H, Eosinophils # (Auto) 0.0, Basophils # (Auto) 0.1, Immature Granulocyte # (Auto) 0.4H, Sodium Level 147H, Potassium Level 3.5L, Chloride Level 111H, Carbon Dioxide Level 23, Anion Gap 13, Blood Urea Nitrogen 30H, Creatinine 1.09, Estimat Glomerular Filtration Rate 67, BUN/Creatinine Ratio 28, Glucose Level 118H, Calcium Level 8.4L, Corrected Calcium 9.3, Magnesium Level 2.7H, Total Bilirubin 0.5, Aspartate Amino Transf (AST/SGOT) 34, Alanine Aminotransferase (ALT/SGPT) 47, Alkaline Phosphatase 87, Total Protein 5.7L, Albumin 2.9L 09/12/22 04:46: White Blood Count 9.9, Red Blood Count 3.97L, Hemoglobin 12.0L, Hematocrit 38L, Mean Corpuscular Volume 95, Mean Corpuscular Hemoglobin 30, Mean Corpuscular Hemoglobin Concent 32, Red Cell Distribution Width 14.6H, Platelet Count 282, Mean Platelet Volume 10.1, Immature Granulocyte % (Auto) 5, Neutrophils (%) (Auto) 72, Lymphocytes (%) (Auto) 11L, Monocytes (%) (Auto) 11, Eosinophils (%) (Auto) 1, Basophils (%) (Auto) 1, Neutrophils # (Auto) 7.1, Lymphocytes # (Auto) 1.1, Monocytes # (Auto) 1.1H, Eosinophils # (Auto) 0.1, Basophils # (Auto) 0.1, Immature Granulocyte # (Auto) 0.5H, Sodium Level 148H, Potassium Level 3.4L, Chloride Level 111H, Carbon Dioxide Level 26, Anion Gap 11, Blood Urea Nitrogen 21H, Creatinine 0.95, Estimat Glomerular Filtration Rate 78, BUN/Creatinine Ratio 22, Glucose Level 176H, Calcium Level 8.2L, Corrected Calcium 9.2, Magnesium Level 2.6H, Total Bilirubin 0.5, Aspartate Amino Transf (AST/SGOT) 27, Alanine Aminotransferase (ALT/SGPT) 40, Alkaline Phosphatase 74, Total Protein 5.4L, Albumin 2.8L 09/13/22 04:25: White Blood Count 15.8H, Red Blood Count 4.44, Hemoglobin 13.4, Hematocrit 42, Mean Corpuscular Volume 94, Mean Corpuscular Hemoglobin 30, Mean Corpuscular Hemoglobin Concent 32, Red Cell Distribution Width 14.6H, Platelet Count 329, Mean Platelet Volume 10.8, Immature Granulocyte % (Auto) 4, Neutrophils (%) (Auto) 78H, Lymphocytes (%) (Auto) 9L, Monocytes (%) (Auto) 8, Eosinophils (%) (Auto) 0, Basophils (%) (Auto) 1, Neutrophils # (Auto) 12.3H, Lymphocytes # (Auto) 1.4, Monocytes # (Auto) 1.2H, Eosinophils # (Auto) 0.1, Basophils # (Auto) 0.1, Immature Granulocyte # (Auto) 0.7H, Sodium Level 146H, Potassium Level 3.2L, Chloride Level 110H, Carbon Dioxide Level 25, Anion Gap 11, Blood Urea Nitrogen 18, Creatinine 0.90, Estimat Glomerular Filtration Rate 84, BUN/Creatinine Ratio 20, Glucose Level 147H, Calcium Level 8.3L, Corrected Calcium 9.1, Magnesium Level 2.4, Total Bilirubin 0.6, Aspartate Amino Transf (AST/SGOT) 41H, Alanine Aminotransferase (ALT/SGPT) 42, Alkaline Phosphatase 73, Total Protein 5.6L, Albumin 3.0L, Neutrophils % (Manual) 73, Lymphocytes % (Manual) 12, Monocytes % (Manual) 11, Myelocytes % 1, Band Neutrophils 3, Blood Morphology Comment NORMAL, Phosphorus Level 1.9L 09/14/22 03:25: White Blood Count 24.2H, Red Blood Count 4.13L, Hemoglobin 12.3L, Hematocrit 39L , Mean Corpuscular Volume 93, Mean Corpuscular Hemoglobin 30, Mean Corpuscular Hemoglobin Concent 32, Red Cell Distribution Width 14.6H, Platelet Count 300, Mean Platelet Volume 10.6, Immature Granulocyte % (Auto) 2, Neutrophils (%) (Auto) 93H, Lymphocytes (%) (Auto) 4L, Monocytes (%) (Auto) 1, Eosinophils (%) (Auto) 0, Basophils (%) (Auto) 0, Neutrophils # (Auto) 22.6H, Lymphocytes # (Auto) 0.9L, Monocytes # (Auto) 0.3, Eosinophils # (Auto) 0.0, Basophils # (Auto) 0.1, Immature Granulocyte # (Auto) 0.4H, Sodium Level 140, Potassium Level 3.4L, Chloride Level 106, Carbon Dioxide Level 25, Anion Gap 9, Blood Urea Nitrogen 17, Creatinine 0.88, Estimat Glomerular Filtration Rate 84, BUN/Creatinine Ratio 19, Glucose Level 183H, Calcium Level 8.1L, Corrected Calcium 9.0, Magnesium Level 2.4, Total Bilirubin 0.6, Aspartate Amino Transf (AST/SGOT) 25, Alanine Aminotransferase (ALT/SGPT) 33, Alkaline Phosphatase 73, Total Protein 5.3L, Albumin 2.9L, Phosphorus Level 2.6, Prothrombin Time 14.1, INR Comment 1.0, Prealbumin 12.1L, Triglycerides Level 181H 09/15/22 04:45: White Blood Count 26.1H, Red Blood Count 3.90L, Hemoglobin 11.9L, Hematocrit 36L , Mean Corpuscular Volume 93, Mean Corpuscular Hemoglobin 31, Mean Corpuscular Hemoglobin Concent 33, Red Cell Distribution Width 14.5, Platelet Count 318, Mean Platelet Volume 10.9, Immature Granulocyte % (Auto) 3, Neutrophils (%) (Auto) 87H, Lymphocytes (%) (Auto) 5L, Monocytes (%) (Auto) 5, Eosinophils (%) (Auto) 0, Basophils (%) (Auto) 0, Neutrophils # (Auto) 22.7H, Lymphocytes # (Auto) 1.3, Monocytes # (Auto) 1.3H, Eosinophils # (Auto) 0.0, Basophils # (Auto) 0.1, Immature Granulocyte # (Auto) 0.7H, Sodium Level 141, Potassium Level 2.9L, Chloride Level 108H, Carbon Dioxide Level 25, Anion Gap 8, Blood Urea Nitrogen 20H, Creatinine 0.87, Estimat Glomerular Filtration Rate 85, BUN/Creatinine Ratio 23, Glucose Level 171H, Calcium Level 7.9L, Corrected Calcium 9.0, Magnesium Level 2.1, Total Bilirubin 0.6, Aspartate Amino Transf (AST/SGOT) 46H, Alanine Aminotransferase (ALT/SGPT) 37, Alkaline Phosphatase 71, Total Protein 4.9L, Albumin 2.6L 1/1/23 17:00: Sodium Level 141, Potassium Level 3.1L, Chloride Level 108H, Carbon Dioxide Level 23, Anion Gap 10, Blood Urea Nitrogen 20H, Creatinine 0.88, Estimat Glomerular Filtration Rate 84, BUN/Creatinine Ratio 23, Glucose Level 134H, Calcium Level 8.0L 09/16/22 03:45: White Blood Count 21.3H, Red Blood Count 3.74L, Hemoglobin 11.6L, Hematocrit 35L , Mean Corpuscular Volume 94, Mean Corpuscular Hemoglobin 31, Mean Corpuscular Hemoglobin Concent 33, Red Cell Distribution Width 14.9H, Platelet Count 296, Mean Platelet Volume 11.4, Immature Granulocyte % (Auto) 3, Neutrophils (%) (Auto) 84H, Lymphocytes (%) (Auto) 6L, Monocytes (%) (Auto) 6, Eosinophils (%) (Auto) 0, Basophils (%) (Auto) 0, Neutrophils # (Auto) 18.0H, Lymphocytes # (Auto) 1.3, Monocytes # (Auto) 1.3H, Eosinophils # (Auto) 0.0, Basophils # (Auto) 0.1, Immature Granulocyte # (Auto) 0.7H 09/16/22 04:45: Sodium Level 139, Potassium Level 3.0L, Chloride Level 110H, Carbon Dioxide Level 22, Anion Gap 7, Blood Urea Nitrogen 18, Creatinine 0.77, Estimat Glomerular Filtration Rate 88, BUN/Creatinine Ratio 23, Glucose Level 170H, Calcium Level 7.8L, Corrected Calcium 8.9, Magnesium Level 1.9, Total Bilirubin 0.5, Aspartate Amino Transf (AST/SGOT) 59H, Alanine Aminotransferase (ALT/SGPT) 52, Alkaline Phosphatase 67, Total Protein 4.8L, Albumin 2.6L 09/17/22 03:08: Sodium Level 136, Potassium Level 3.5L, Chloride Level 109H, Carbon Dioxide Level 17L, Anion Gap 10, Blood Urea Nitrogen 18, Creatinine 0.70, Estimat Glomerular Filtration Rate 90, BUN/Creatinine Ratio 26, Glucose Level 180H, Calcium Level 7.7L, White Blood Count 18.8H, Red Blood Count 3.66L, Hemoglobin 11.0L, Hematocrit 33L, Mean Corpuscular Volume 91, Mean Corpuscular Hemoglobin 30, Mean Corpuscular Hemoglobin Concent 33, Red Cell Distribution Width 14.6H, Platelet Count 295, Mean Platelet Volume 11.6, Immature Granulocyte % (Auto) 4, Neutrophils (%) (Auto) 82H, Lymphocytes (%) (Auto) 7L, Monocytes (%) (Auto) 6, Eosinophils (%) (Auto) 0, Basophils (%) (Auto) 0, Neutrophils # (Auto) 15.4H, Lymphocytes # (Auto) 1.3, Monocytes # (Auto) 1.2H, Eosinophils # (Auto) 0.1, Basophils # (Auto) 0.1, Immature Granulocyte # (Auto) 0.8H, Corrected Calcium 8.9, Magnesium Level 1.8, Total Bilirubin 0.5, Aspartate Amino Transf (AST/SGOT) 35H, Alanine Aminotransferase (ALT/SGPT) 45, Alkaline Phosphatase 78, Total Protein 4.8L, Albumin 2.5L, Phosphorus Level 1.6L 09/17/22 04:46: Glucometer 174H 09/17/22 10:20: Glucometer 157H 09/17/22 16:01: Glucometer 160H 09/17/22 20:50: Glucometer 168H 09/18/22 03:55: White Blood Count 20.8H, Red Blood Count 3.66L, Hemoglobin 11.1L, Hematocrit 33L , Mean Corpuscular Volume 91, Mean Corpuscular Hemoglobin 30, Mean Corpuscular Hemoglobin Concent 33, Red Cell Distribution Width 14.6H, Platelet Count 331, Mean Platelet Volume 11.7, Immature Granulocyte % (Auto) 6, Neutrophils (%) (Auto) 77H, Lymphocytes (%) (Auto) 10L, Monocytes (%) (Auto) 7, Eosinophils (%) (Auto) 0, Basophils (%) (Auto) 1, Neutrophils # (Auto) 16.0H, Lymphocytes # (Auto) 2.0, Monocytes # (Auto) 1.4H, Eosinophils # (Auto) 0.1, Basophils # (Auto) 0.1, Immature Granulocyte # (Auto) 1.2H, Sodium Level 133L, Potassium Level 3.6, Chloride Level 104, Carbon Dioxide Level 20L, Anion Gap 9, Blood Urea Nitrogen 17, Creatinine 0.75, Estimat Glomerular Filtration Rate 88, BUN/Creatinine Ratio 23, Glucose Level 288H, Calcium Level 7.8L, Corrected Calcium 8.8, Phosphorus Level 2.1L, Magnesium Level 1.9, Total Bilirubin 0.4, Aspartate Amino Transf (AST/SGOT) 36H, Alanine Aminotransferase (ALT/SGPT) 48, Alkaline Phosphatase 93, Total Protein 5.1L, Albumin 2.7L, Digoxin Level 0.50L 09/18/22 05:44: Glucometer 178H 09/18/22 10:46: Glucometer 181H 09/18/22 11:30: Urine Color YELLOW, Urine Clarity CLEAR, Urine pH 5.5, Urine Specific [place] >=1.030, Urine Protein TRACEH, Urine Glucose (UA) 2+H, Urine Ketones NEGATIVE, Urine Nitrite NEGATIVE, Urine Bilirubin NEGATIVE, Urine Urobilinogen 0.2, Urine Leukocyte Esterase NEGATIVE, Urine RBC (Auto) 1+H, Urine RBC 2-5H, Urine WBC 0- 2, Urine Crystals NONE, Urine Bacteria TRACE, Urine Casts NONE, Urine Mucus NEGATIVE, Urine Yeast FEWH, Urine Culture Indicated YES 09/19/22 06:00: White Blood Count 18.5H, Red Blood Count 3.19L, Hemoglobin 9.8L, Hematocrit 29L, Mean Corpuscular Volume 92, Mean Corpuscular Hemoglobin 31, Mean Corpuscular Hemoglobin Concent 33, Red Cell Distribution Width 14.6H, Platelet Count 315, Mean Platelet Volume 12.0, Immature Granulocyte % (Auto) 5, Neutrophils (%) (Auto) 80H, Lymphocytes (%) (Auto) 6L, Monocytes (%) (Auto) 8, Eosinophils (%) (Auto) 0, Basophils (%) (Auto) 0, Neutrophils # (Auto) 14.8H, Lymphocytes # (Auto) 1.2, Monocytes # (Auto) 1.5H, Eosinophils # (Auto) 0.0, Basophils # (Auto) 0.1, Immature Granulocyte # (Auto) 0.9H, Neutrophils % (Manual) 83, Lymphocytes % (Manual) 4, Monocytes % (Manual) 8, Metamyelocytes % 1, Myelocytes % 2, Band Neutrophils 2, Blood Morphology Comment NORMAL, Sodium Level 136, Potassium Level 3.9, Chloride Level 106, Carbon Dioxide Level 24, Anion Gap 6, Blood Urea Nitrogen 19H, Creatinine 0.78, Estimat Glomerular Filtration Rate 87, BUN/Creatinine Ratio 24, Glucose Level 194H, Calcium Level 7.8L, Corrected Calcium 8.8, Phosphorus Level 2.3, Magnesium Level 2.0, Total Bilirubin 0.4, Aspartate Amino Transf (AST/SGOT) 34, Alanine Aminotransferase (ALT/SGPT) 43, Alkaline Phosphatase 124, Total Protein 4.9L, Albumin 2.7L 09/19/22 06:25: Glucometer 224H 09/19/22 11:11: Glucometer 178H Microbiology 09/18/22 Urine Culture - Preliminary, Resulted Culture In Progress 09/15/22 C. difficile GDH Antigen & Toxins - Final, Complete Pending Labs Microbiology Date/Time Source Procedure Growth Status 09/18/22 11:30 Urine U Cath,Nos Urine Culture - Preliminary Culture In Progress Resulted 09/15/22 13:40 Stool C. difficile GDH Antigen & Toxins - Final Complete Laboratory Tests 09/05/22 17:09: White Blood Count 20.1, Red Blood Count 4.97, Hemoglobin 15.5, Hematocrit 46, Mean Corpuscular Volume 93, Mean Corpuscular Hemoglobin 31, Mean Corpuscular Hemoglobin Concent 34, Red Cell Distribution Width 13.9, Platelet Count 229, Mean Platelet Volume 11.2, Immature Granulocyte % (Auto) 1, Neutrophils (%) (Auto) 87, Lymphocytes (%) (Auto) 4, Monocytes (%) (Auto) 8, Eosinophils (%) (Auto) 1, Basophils (%) (Auto) 0, Neutrophils # (Auto) 17.4, Lymphocytes # (Auto) 0.8, Monocytes # (Auto) 1.6, Eosinophils # (Auto) 0.1, Basophils # (Auto) 0.0, Immature Granulocyte # (Auto) 0.1, Neutrophils % (Manual) 88, Lymphocytes % (Manual) 3, Monocytes % (Manual) 8, Band Neutrophils 1, Blood Morphology Comment NORMAL, Sodium Level 137, Potassium Level 3.6, Chloride Level 96, Carbon Dioxide Level 22, Anion Gap 19, Blood Urea Nitrogen 19, Creatinine 1.42, Estimat Glomerular Filtration Rate 48, BUN/Creatinine Ratio 13, Glucose Level 186, Calcium Level 9.9, Corrected Calcium , Total Bilirubin 1.4, Aspartate Amino Transf (AST/SGOT) 25, Alanine Aminotransferase (ALT/SGPT) 23, Alkaline Phosp hatase 76, Total Protein 7.9, Albumin 4.7, Lipase 28 09/05/22 17:36: Urine Color YELLOW, Urine Clarity CLOUDY, Urine pH 6.0, Urine Specific [place] >=1.030, Urine Protein 1+, Urine Glucose (UA) NEGATIVE, Urine Ketones NEGATIVE, Urine Nitrite NEGATIVE, Urine Bilirubin NEGATIVE, Urine Urobilinogen 0.2, Urine Leukocyte Esterase NEGATIVE, Urine RBC (Auto) TRACE-I, Urine RBC NONE, Urine WBC 2-5, Urine Crystals NONE, Urine Bacteria TRACE, Urine Casts NONE, Urine Mucus NEGATIVE, Urine Culture Indicated NO 09/06/22 04:32: White Blood Count 21.2, Red Blood Count 4.78, Hemoglobin 14.7, Hematocrit 45, Mean Corpuscular Volume 93, Mean Corpuscular Hemoglobin 31, Mean Corpuscular Hemoglobin Concent 33, Red Cell Distribution Width 13.9, Platelet Count 181, Mean Platelet Volume 11.6, Immature Granulocyte % (Auto) 1, Neutrophils (%) (Auto) 81, Lymphocytes (%) (Auto) 6, Monocytes (%) (Auto) 11, Eosinophils (%) (Auto) 1, Basophils (%) (Auto) 0, Neutrophils # (Auto) 17.2, Lymphocytes # (Auto) 1.3, Monocytes # (Auto) 2.3, Eosinophils # (Auto) 0.2, Basophils # (Auto) 0.0, Immature Granulocyte # (Auto) 0.2, Sodium Level 136, Potassium Level 3.9, Chloride Level 98, Carbon Dioxide Level 27, Anion Gap 11, Blood Urea Nitrogen 20, Creatinine 1.36, Estimat Glomerular Filtration Rate 51, BUN/Creatinine Ratio 15, Glucose Level 137, Calcium Level 9.4, Corrected Calcium 9.4, Total Bilirubin 2.5, Aspartate Amino Transf (AST/SGOT) 172, Alanine Aminotransferase (ALT/SGPT) 97, Alkaline Phosphatase 96, Total Protein 7.0, Albumin 4.0, Magnesium Level 2.1 09/07/22 04:13: White Blood Count 18.3, Red Blood Count 4.51, Hemoglobin 13.7, Hematocrit 42, Mean Corpuscular Volume 93, Mean Corpuscular Hemoglobin 30, Mean Corpuscular Hemoglobin Concent 33, Red Cell Distribution Width 14.2, Platelet Count 165, Mean Platelet Volume 11.0, Immature Granulocyte % (Auto) 1, Neutrophils (%) (Auto) 83, Lymphocytes (%) (Auto) 6, Monocytes (%) (Auto) 9, Eosinophils (%) (Auto) 1, Basophils (%) (Auto) 0, Neutrophils # (Auto) 15.2, Lymphocytes # (Auto) 1.1, Monocytes # (Auto) 1.7, Eosinophils # (Auto) 0.1, Basophils # (Auto) 0.0, Immature Granulocyte # (Auto) 0.2, Sodium Level 135, Potassium Level 3.3, Chloride Level 100, Carbon Dioxide Level 23, Anion Gap 12, Blood Urea Nitrogen 21, Creatinine 1.29, Estimat Glomerular Filtration Rate 54, BUN/Creatinine Ratio 16, Glucose Level 130, Calcium Level 8.8, Corrected Calcium 9.2, Total Bilirubin 2.6, Aspartate Amino Transf (AST/SGOT) 153, Alanine Aminotransferase (ALT/SGPT) 165, Alkaline Phosphatase 113, Total Protein 6.4, Albumin 3.5, Magnesium Level 2.2 09/08/22 04:15: White Blood Count 11.9, Red Blood Count 4.24, Hemoglobin 13.0, Hematocrit 40, Mean Corpuscular Volume 93, Mean Corpuscular Hemoglobin 31, Mean Corpuscular Hemoglobin Concent 33, Red Cell Distribution Width 14.4, Platelet Count 194, Mean Platelet Volume 11.2, Immature Granulocyte % (Auto) 1, Neutrophils (%) (Auto) 80, Lymphocytes (%) (Auto) 8, Monocytes (%) (Auto) 11, Eosinophils (%) (Auto) 1, Basophils (%) (Auto) 0, Neutrophils # (Auto) 9.6, Lymphocytes # (Auto) 0.9, Monocytes # (Auto) 1.3, Eosinophils # (Auto) 0.1, Basophils # (Auto) 0.0, Immature Granulocyte # (Auto) 0.1, Sodium Level 137, Potassium Level 3.3, Chloride Level 103, Carbon Dioxide Level 20, Anion Gap 14, Blood Urea Nitrogen 25, Creatinine 1.34, Estimat Glomerular Filtration Rate 52, BUN/Creatinine Ratio 19, Glucose Level 134, Calcium Level 8.4, Corrected Calcium 9.0, Magnesium Level 2.3, Total Bilirubin 1.3, Aspartate Amino Transf (AST/SGOT) 104, Alanine Aminotransferase (ALT/SGPT) 122, Alkaline Phosphatase 113, Total Protein 6.1, Albumin 3.3 09/09/22 02:55: White Blood Count 11.2, Red Blood Count 4.29, Hemoglobin 13.1, Hematocrit 40, Mean Corpuscular Volume 94, Mean Corpuscular Hemoglobin 31, Mean Corpuscular Hemoglobin Concent 33, Red Cell Distribution Width 14.4, Platelet Count 234, Mean Platelet Volume 10.9, Immature Granulocyte % (Auto) 1, Neutrophils (%) (Auto) 78, Lymphocytes (%) (Auto) 6, Monocytes (%) (Auto) 14, Eosinophils (%) (Auto) 0, Basophils (%) (Auto) 0, Neutrophils # (Auto) 8.7, Lymphocytes # (Auto) 0.7, Monocytes # (Auto) 1.6, Eosinophils # (Auto) 0.0, Basophils # (Auto) 0.0, Immature Granulocyte # (Auto) 0.1, Sodium Level 138, Potassium Level 3.4, Chloride Level 102, Carbon Dioxide Level 24, Anion Gap 12, Blood Urea Nitrogen 35, Creatinine 1.54, Estimat Glomerular Filtration Rate 44, BUN/Creatinine Ratio 23, Glucose Level 147, Calcium Level 8.7, Corrected Calcium 9.3, Magnesium Level 2.3, Total Bilirubin 1.2, Aspartate Amino Transf (AST/SGOT) 51, Alanine Aminotransferase (ALT/SGPT) 80, Alkaline Phosphatase 105, Total Protein 6.3, Albumin 3.2 09/10/22 04:07: White Blood Count 10.0, Red Blood Count 3.95, Hemoglobin 12.2, Hematocrit 37, Mean Corpuscular Volume 95, Mean Corpuscular Hemoglobin 31, Mean Corpuscular Hemoglobin Concent 33, Red Cell Distribution Width 14.6, Platelet Count 253, Mean Platelet Volume 10.6, Immature Granulocyte % (Auto) 2, Neutrophils (%) (Aut o) 77, Lymphocytes (%) (Auto) 9, Monocytes (%) (Auto) 12, Eosinophils (%) (Auto) 0, Basophils (%) (Auto) 0, Neutrophils # (Auto) 7.7, Lymphocytes # (Auto) 0.9, Monocytes # (Auto) 1.2, Eosinophils # (Auto) 0.0, Basophils # (Auto) 0.0, Immature Granulocyte # (Auto) 0.2, Sodium Level 141, Potassium Level 3.7, Chloride Level 106, Carbon Dioxide Level 22, Anion Gap 13, Blood Urea Nitrogen 37, Creatinine 1.29, Estimat Glomerular Filtration Rate 54, BUN/Creatinine Ratio 29, Glucose Level 126, Calcium Level 8.8, Corrected Calcium 9.5, Magnesium Level 2.5, Total Bilirubin 0.7, Aspartate Amino Transf (AST/SGOT) 33, Alanine Aminotransferase (ALT/SGPT) 57, Alkaline Phosphatase 90, Total Protein 6.1, Albumin 3.1, Digoxin Level 0.70 09/11/22 03:24: White Blood Count 8.8, Red Blood Count 4.01, Hemoglobin 11.9, Hematocrit 38, Mean Corpuscular Volume 95, Mean Corpuscular Hemoglobin 30, Mean Corpuscular Hemoglobin Concent 31, Red Cell Distribution Width 14.6, Platelet Count 271, Mean Platelet Volume 10.2, Immature Granulocyte % (Auto) 4, Neutrophils (%) (Auto) 71, Lymphocytes (%) (Auto) 10, Monocytes (%) (Auto) 14, Eosinophils (%) (Auto) 0, Basophils (%) (Auto) 1, Neutrophils # (Auto) 6.2, Lymphocytes # (Auto) 0.9, Monocytes # (Auto) 1.2, Eosinophils # (Auto) 0.0, Basophils # (Auto) 0.1, Immature Granulocyte # (Auto) 0.4, Sodium Level 147, Potassium Level 3.5, Chloride Level 111, Carbon Dioxide Level 23, Anion Gap 13, Blood Urea Nitrogen 30, Creatinine 1.09, Estimat Glomerular Filtration Rate 67, BUN/Creatinine Ratio 28, Glucose Level 118, Calcium Level 8.4, Corrected Calcium 9.3, Magnesium Level 2.7, Total Bilirubin 0.5, Aspartate Amino Transf (AST/SGOT) 34, Alanine Aminotransferase (ALT/SGPT) 47, Alkaline Phosphatase 87, Total Protein 5.7, Albumin 2.9 09/12/22 04:46: White Blood Count 9.9, Red Blood Count 3.97, Hemoglobin 12.0, Hematocrit 38, Mean Corpuscular Volume 95, Mean Corpuscular Hemoglobin 30, Mean Corpuscular Hemoglobin Concent 32, Red Cell Distribution Width 14.6, Platelet Count 282, Mean Platelet Volume 10.1, Immature Granulocyte % (Auto) 5, Neutrophils (%) (Auto) 72, Lymphocytes (%) (Auto) 11, Monocytes (%) (Auto) 11, Eosinophils (%) (Auto) 1, Basophils (%) (Auto) 1, Neutrophils # (Auto) 7.1, Lymphocytes # (Auto) 1.1, Monocytes # (Auto) 1.1, Eosinophils # (Auto) 0.1, Basophils # (Auto) 0.1, Immature Granulocyte # (Auto) 0.5, Sodium Level 148, Potassium Level 3.4, Chloride Level 111, Carbon Dioxide Level 26, Anion Gap 11, Blood Urea Nitrogen 21, Creatinine 0.95, Estimat Glomerular Filtration Rate 78, BUN/Creatinine Ratio 22, Glucose Level 176, Calcium Level 8.2, Corrected Calcium 9.2, Magnesium Level 2.6, Total Bilirubin 0.5, Aspartate Amino Transf (AST/SGOT) 27, Alanine Aminotransferase (ALT/SGPT) 40, Alkaline Phosphatase 74, Total Protein 5.4, Albumin 2.8 09/13/22 04:25: White Blood Count 15.8, Red Blood Count 4.44, Hemoglobin 13.4, Hematocrit 42, Mean Corpuscular Volume 94, Mean Corpuscular Hemoglobin 30, Mean Corpuscular Hemoglobin Concent 32, Red Cell Distribution Width 14.6, Platelet Count 329, Mean Platelet Volume 10.8, Immature Granulocyte % (Auto) 4, Neutrophils (%) (Auto) 78, Lymphocytes (%) (Auto) 9, Monocytes (%) (Auto) 8, Eosinophils (%) (Auto) 0, Basophils (%) (Auto) 1, Neutrophils # (Auto) 12.3, Lymphocytes # (Auto) 1.4, Monocytes # (Auto) 1.2, Eosinophils # (Auto) 0.1, Basophils # (Auto) 0.1, Immature Granulocyte # (Auto) 0.7, Sodium Level 146, Potassium Level 3.2, Chloride Level 110, Carbon Dioxide Level 25, Anion Gap 11, Blood Urea Nitrogen 18, Creatinine 0.90, Estimat Glomerular Filtration Rate 84, BUN/Creatinine Ratio 20, Glucose Level 147, Calcium Level 8.3, Corrected Calcium 9.1, Magnesium Level 2.4, Total Bilirubin 0.6, Aspartate Amino Transf (AST/SGOT) 41, Alanine Aminotransferase (ALT/SGPT) 42, Alkaline Phosphatase 73, Total Protein 5.6, Albumin 3.0, Neutrophils % (Manual) 73, Lymphocytes % (Manual) 12, Monocytes % (Manual) 11, Myelocytes % 1, Band Neutrophils 3, Blood Morphology Comment NORMAL, Phosphorus Level 1.9 09/14/22 03:25: White Blood Count 24.2, Red Blood Count 4.13, Hemoglobin 12.3, Hematocrit 39, Mean Corpuscular Volume 93, Mean Corpuscular Hemoglobin 30, Mean Corpuscular Hemoglobin Concent 32, Red Cell Distribution Width 14.6, Platelet Count 300, Mean Platelet Volume 10.6, Immature Granulocyte % (Auto) 2, Neutrophils (%) (Auto) 93, Lymphocytes (%) (Auto) 4, Monocytes (%) (Auto) 1, Eosinophils (%) (Auto) 0, Basophils (%) (Auto) 0, Neutrophils # (Auto) 22.6, Lymphocytes # (Auto) 0.9, Monocytes # (Auto) 0.3, Eosinophils # (Auto) 0.0, Basophils # (Auto) 0.1, Immature Granulocyte # (Auto) 0.4, Sodium Level 140, Potassium Level 3.4, Chloride Level 106, Carbon Dioxide Level 25, Anion Gap 9, Blood Urea Nitrogen 17, Creatinine 0.88, Estimat Glomerular Filtration Rate 84, BUN/Creatinine Ratio 19, Glucose Level 183, Calcium Level 8.1, Corrected Calcium 9.0, Magnesium Level 2.4, Total Bilirubin 0.6, Aspartate Amino Transf (AST/SGOT) 25, Alanine Aminotransferase (ALT/SGPT) 33, Alkaline Phosphatase 73, Total Protein 5.3, Albumin 2.9, Phosphorus Level 2.6, Prothrombin Time 14.1, INR Comment 1.0, Prealbumin 12.1, Triglycerides Level 181 09/15/22 04:45: White Blood Count 26.1, Red Blood Count 3.90, Hemoglobin 11.9, Hematocrit 36, Mean Corpuscular Volume 93, Mean Corpuscular Hemoglobin 31, Mean Corpuscular Hemoglobin Concent 33, Red Cell Distribution Width 14.5, Platelet Count 318, Mean Platelet Volume 10.9, Immature Granulocyte % (Auto) 3, Neutrophils (%) (Auto) 87, Lymphocytes (%) (Auto) 5, Monocytes (%) (Auto) 5, Eosinophils (%) (Auto) 0, Basophils (%) (Auto) 0, Neutrophils # (Auto) 22.7, Lymphocytes # (Auto) 1.3, Monocytes # (Auto) 1.3, Eosinophils # (Auto) 0.0, Basophils # (Auto) 0.1, Immature Granulocyte # (Auto) 0.7, Sodium Level 141, Potassium Level 2.9, Chloride Level 108, Carbon Dioxide Level 25, Anion Gap 8, Blood Urea Nitrogen 20, Creatinine 0.87, Estimat Glomerular Filtration Rate 85, BUN/Creatinine Ratio 23, Glucose Level 171, Calcium Level 7.9, Corrected Calcium 9.0, Magnesium Level 2.1, Total Bilirubin 0.6, Aspartate Amino Transf (AST/SGOT) 46, Alanine Aminotransferase (ALT/SGPT) 37, Alkaline Phosphatase 71, Total Protein 4.9, Albumin 2.6 09/15/22 17:00: Sodium Level 141, Potassium Level 3.1, Chloride Level 108, Carbon Dioxide Level 23, Anion Gap 10, Blood Urea Nitrogen 20, Creatinine 0.88, Estimat Glomerular Filtration Rate 84, BUN/Creatinine Ratio 23, Glucose Level 134, Calcium Level 8.0 09/16/22 03:45: White Blood Count 21.3, Red Blood Count 3.74, Hemoglobin 11.6, Hematocrit 35, Mean Corpuscular Volume 94, Mean Corpuscular Hemoglobin 31, Mean Corpuscular Hemoglobin Concent 33, Red Cell Distribution Width 14.9, Platelet Count 296, Mean Platelet Volume 11.4, Immature Granulocyte % (Auto) 3, Neutrophils (%) (Auto) 84, Lymphocytes (%) (Auto) 6, Monocytes (%) (Auto) 6, Eosinophils (%) (Auto) 0, Basophils (%) (Auto) 0, Neutrophils # (Auto) 18.0, Lymphocytes # (Auto) 1.3, Monocytes # (Auto) 1.3, Eosinophils # (Auto) 0.0, Basophils # (Auto) 0.1, Immature Granulocyte # (Auto) 0.7 09/16/22 04:45: Sodium Level 139, Potassium Level 3.0, Chloride Level 110, Carbon Dioxide Level 22, Anion Gap 7, Blood Urea Nitrogen 18, Creatinine 0.77, Estimat Glomerular Filtration Rate 88, BUN/Creatinine Ratio 23, Glucose Level 170, Calcium Level 7.8, Corrected Calcium 8.9, Magnesium Level 1.9, Total Bilirubin 0.5, Aspartate Amino Transf (AST/SGOT) 59, Alanine Aminotransferase (ALT/SGPT) 52, Alkaline Phosphatase 67, Total Protein 4.8, Albumin 2.6 09/17/22 03:08: Sodium Level 136, Potassium Level 3.5, Chloride Level 109, Carbon Dioxide Level 17, Anion Gap 10, Blood Urea Nitrogen 18, Creatinine 0.70, Estimat Glomerular Filtration Rate 90, BUN/Creatinine Ratio 26, Glucose Level 180, Calcium Level 7.7, White Blood Count 18.8, Red Blood Count 3.66, Hemoglobin 11.0, Hematocrit 33, Mean Corpuscular Volume 91, Mean Corpuscular Hemoglobin 30, Mean Corpuscular Hemoglobin Concent 33, Red Cell Distribution Width 14.6, Platelet Count 295, Mean Platelet Volume 11.6, Immature Granulocyte % (Auto) 4, Neutrophils (%) (Auto) 82, Lymphocytes (%) (Auto) 7, Monocytes (%) (Auto) 6, Eosinophils (%) (Auto) 0, Basophils (%) (Auto) 0, Neutrophils # (Auto) 15.4, Lymphocytes # (Auto) 1.3, Monocytes # (Auto) 1.2, Eosinophils # (Auto) 0.1, Basophils # (Auto) 0.1, Immature Granulocyte # (Auto) 0.8, Corrected Calcium 8.9, Magnesium Level 1.8, Total Bilirubin 0.5, Aspartate Amino Transf (AST/SGOT) 35, Alanine Aminotransferase (ALT/SGPT) 45, Alkaline Phosphatase 78, Total Protein 4.8, Albumin 2.5, Phosphorus Level 1.6 09/17/22 04:46: Glucometer 174 09/17/22 10:20: Glucometer 157 09/17/22 16:01: Glucometer 160 09/17/22 20:50: Glucometer 168 09/18/22 03:55: White Blood Count 20.8, Red Blood Count 3.66, Hemoglobin 11.1, Hematocrit 33, Mean Corpuscular Volume 91, Mean Corpuscular Hemoglobin 30, Mean Corpuscular Hemoglobin Concent 33, Red Cell Distribution Width 14.6, Platelet Count 331, Mean Platelet Volume 11.7, Immature Granulocyte % (Auto) 6, Neutrophils (%) (Auto) 77, Lymphocytes (%) (Auto) 10, Monocytes (%) (Auto) 7, Eosinophils (%) (Auto) 0, Basophils (%) (Auto) 1, Neutrophils # (Auto) 16.0, Lymphocytes # (Auto) 2.0, Monocytes # (Auto) 1.4, Eosinophils # (Auto) 0.1, Basophils # (Auto) 0.1, Immature Granulocyte # (Auto) 1.2, Sodium Level 133, Potassium Level 3.6, Chloride Level 104, Carbon Dioxide Level 20, Anion Gap 9, Blood Urea Nitrogen 17, Creatinine 0.75, Estimat Glomerular Filtration Rate 88, BUN/Creatinine Ratio 23, Glucose Level 288, Calcium Level 7.8, Corrected Calcium 8.8, Phosphorus Level 2.1, Magnesium Level 1.9, Total Bilirubin 0.4, Aspartate Amino Transf (AST/SGOT) 36, Alanine Aminotransferase (ALT/SGPT) 48, Alkaline Phosphatase 93, Total Protein 5.1, Albumin 2.7, Digoxin Level 0.50 09/18/22 05:44: Glucometer 178 09/18/22 10:46: Glucometer 181 09/18/22 11:30: Urine Color YELLOW, Urine Clarity CLEAR, Urine pH 5.5, Urine Specific [place] >=1.030, Urine Protein TRACE, Urine Glucose (UA) 2+, Urine Ketones NEGATIVE, Urine Nitrite NEGATIVE, Urine Bilirubin NEGATIVE, Urine Urobilinogen 0.2, Urine Leukocyte Esterase NEGATIVE, Urine RBC (Auto) 1+, Urine RBC 2-5, Urine WBC 0-2, Urine Crystals NONE, Urine Bacteria TRACE, Urine Casts NONE, Urine Mucus NEGATIVE, Urine Yeast FEW, Urine Culture Indicated YES 09/19/22 06:00: White Blood Count 18.5, Red Blood Count 3.19, Hemoglobin 9.8, Hematocrit 29, Mean Corpuscular Volume 92, Mean Corpuscular Hemoglobin 31, Mean Corpuscular Hemoglobin Concent 33, Red Cell Distribution Width 14.6, Platelet Count 315, Mean Platelet Volume 12.0, Immature Granulocyte % (Auto) 5, Neutrophils (%) (Auto) 80, Lymphocytes (%) (Auto) 6, Monocytes (%) (Auto) 8, Eosinophils (%) (Auto) 0, Basophils (%) (Auto) 0, Neutrophils # (Auto) 14.8, Lymphocytes # (Auto) 1.2, Monocytes # (Auto) 1.5, Eosinophils # (Auto) 0.0, Basophils # (Auto) 0.1, Immature Granulocyte # (Auto) 0.9, Neutrophils % (Manual) 83, Lymphocytes % (Manual) 4, Monocytes % (Manual) 8, Metamyelocytes % 1, Myelocytes % 2, Band Neutrophils 2, Blood Morphology Comment NORMAL, Sodium Level 136, Potassium Level 3.9, Chloride Level 106, Carbon Dioxide Level 24, Anion Gap 6, Blood Urea Nitrogen 19, Creatinine 0.78, Estimat Glomerular Filtration Rate 87, BUN/Creatinine Ratio 24, Glucose Level 194, Calcium Level 7.8, Corrected Calcium 8.8, Phosphorus Level 2.3, Magnesium Level 2.0, Total Bilirubin 0.4, Aspartate Amino Transf (AST/SGOT) 34, Alanine Aminotransferase (ALT/SGPT) 43, Alkaline Phosphatase 124, Total Protein 4.9, Albumin 2.7 09/19/22 06:25: Glucometer 224 09/19/22 11:11: Glucometer 178 Discharge Home Medications: Active Scripts Active HYDROcodone/APAP 7.5/325 TAB (Acetaminophen/Hydrocodone Bitart) 1 Ea Tablet 1 Ea PO Q6H PRN Diltiazem 24Hr ER (Diltiazem HCl) 180 Mg Cap.er.24h 360 Mg PO DAILY Ondansetron Odt (Ondansetron) 4 Mg Tab.rapdis 4 Mg SL Q4H PRN Fluconazole 100 Mg Tablet 100 Mg PO DAILY Cefdinir 300 Mg Capsule 300 Mg PO BID Reported Clopidogrel (Clopidogrel Bisulfate) 75 Mg Tablet 75 Mg PO DAILY Metoprolol Succinate 50 Mg Tab.er.24h 50 Mg PO BID Pantoprazole Sodium 40 Mg Tablet.dr 40 Mg PO HS Potassium Chloride 10 Meq Capsule.er 10 Meq PO HS Eliquis (Apixaban) 5 Mg Tablet 5 Mg PO BID Furosemide 40 Mg Tablet 40 Mg PO DAILY Fish Oil EC 1,200 mg Softgel (Story-3/Dha/Epa/Fish Oil) 1 Each Capsule.dr 1 Each PO DAILY Instructions to patient/family Please see electronic discharge instructions given to patient. KAREN JJ DO Sep 19, 2022 12:39
[2022-09-19 16:00] VITALS: BP 129/77
--- NOTE | 2022-09-19 18:32 | Progress Note ---
ESTELA DAVIS 09/19/221831: Progress Note 87 yo M with a history of chronic atrial fibrillation, HTN and CAD amongst other chronic health conditions admitted from the ER on 09/05 for findings consistent with acute cholycysitits after a same-day visit for sharp, constant, 8/10 abdominal pain overnight and 2-3 days of constipation. Exam done at the time of admission revealed hypoactive bowel sounds, abdominal distention and diffuse tenderness without other abnormalities. Tachycardia at 105 and leukocytosis at 20.1 were were also present. He was placed in ICU/stepdown and started on on Cardizem drip per tachycardia in the context of atrial-fibrillation; additionally, broad-spectrum antibiotics were initiated and anti-coagulation was transitioned from Eliquis and Plavix to Lovenoxin in preparation for cholecystectomy and umbilical hernia repair. Both procedures were done without complications on 09/07. Post-op he had an episode of acute respiratory failure requiring BiPAP; otherwise he appeared comfortable and WBC stabilized to 11.9 He was weaned off of BiPAP in the following few days though he remained on nasal canula throughout his stay. On 09/09, his abdominal discomfort returned and exam showed distension with absent bowel sounds. CXR the same day revealed multiple dilated bowel loops without intra-abdominal air, findings consistent with post-operative ileus. He was made NPO and a nasogastric tube was placed. Throughout the next week he had a few episodes of diarrhea with overall improvement in his abdominal disomfort, though he displayed general malaise and weakness throughout his stay. Ileus resolved then returned 09/15 when he inadvertently removed his NG tube. He was closely observed by surgery who permitted oral intake on 09/18. They endorsed discharge after successful oral feeding. On 09/08, he presented with tachycardia at 129 and atrial fibrillation with RVR requiring cardizem at a rate of 20. His tachycardia persisted and required significant management by cardiology throughout his stay: addition of IV metoprolol 08/30, addition of IV digoxin 09/11, and consolidation to an oral regimen (cardizem, metoprolol and digoxin) on 09/18. His rate was improved (122) but not controlled prior to discharge. Leukocytosis (ranging from 15.8 - 26.5) returned 09/13 -09/19). IV antibiotics were maintained. 18.5 prior to discharge. Patient discharged on 1/5 long acting beta kacy, Plavix and Eliquis amongst other home medications. . MARILYNN JJ DO 09/20/229: Supervisory-Addendum Brief Verification & Attestation Participated in pt care: history, MDM, physical Personally performed: exam, history, MDM, supervision of care Care discussed with: Medical Student Procedures: n/a Results interpretation: Verified all documentation Verification and Attestation of Medical Student E/M Service A medical student performed and documented this service in my presence. I reviewed and verified all information documented by the medical student and made modifications to such information, when appropriate. I personally performed the physical exam and medical decision making. Marilynn Jj, Sep 20, 2022,22:29 ESTELA DAVIS Sep 19, 2022 18:32 MARILYNN JJ DO Sep 20, 2022 22:29
[2022-09-20] MEDS ORDERED: PANTOPRAZOLE 40 MG (PROTONIX) TAB PO SCH (09:00)
== END 2022-09-19 16:38 | disposition home health service (06) | DRG 417 ==
LOC: EDUNIT# 16:05 → ER 16:07 → UNDOADMIN 19:41 → ICU 19:41 → 4TH 09-18 12:39
PROVIDERS: ADMIT Internal Medicine; ATTEND Internal Medicine
PROC: 0WUF4JZ Supplement Abdominal Wall with Synthetic Substitute, Percutaneous Endoscopic Approach (ICD-10-PCS; 2022-09-07)
PROC: 5A09357 Assistance with Respiratory Ventilation, Less than 24 Consecutive Hours, Continuous Positive Airway Pressure (ICD-10-PCS; 2022-09-07)
PROC: 0FT44ZZ Resection of Gallbladder, Percutaneous Endoscopic Approach (ICD-10-PCS; principal; 2022-09-07 11:34)
DX: K81.0 Acute cholecystitis (principal); A41.9 Sepsis, unspecified organism; I50.33 Acute on chronic diastolic (congestive) heart failure; J95.821 Acute postprocedural respiratory failure; T81.12XA Postprocedural septic shock, initial encounter; I48.21 Permanent atrial fibrillation; I48.92 Unspecified atrial flutter; I13.0 Hypertensive heart and chronic kidney disease with heart failure and stage 1 through stage 4 chronic kidney disease, or unspecified chronic kidney disease; J44.1 Chronic obstructive pulmonary disease with (acute) exacerbation; E46 Unspecified protein-calorie malnutrition; K91.89 Other postprocedural complications and disorders of digestive system; K56.7 Ileus, unspecified; E87.0 Hyperosmolality and hypernatremia; N17.9 Acute kidney failure, unspecified; T81.44XA Sepsis following a procedure, initial encounter; K42.9 Umbilical hernia without obstruction or gangrene; Z79.01 Long term (current) use of anticoagulants; N18.9 Chronic kidney disease, unspecified; Z68.30 Body mass index [BMI] 30.0-30.9, adult; E78.00 Pure hypercholesterolemia, unspecified; K21.9 Gastro-esophageal reflux disease without esophagitis; I25.10 Atherosclerotic heart disease of native coronary artery without angina pectoris; E87.6 Hypokalemia; I27.20 Pulmonary hypertension, unspecified; M47.816 Spondylosis without myelopathy or radiculopathy, lumbar region; H91.93 Unspecified hearing loss, bilateral; Z97.4 Presence of external hearing-aid; R04.0 Epistaxis; I25.2 Old myocardial infarction; Z95.5 Presence of coronary angioplasty implant and graft; Z79.82 Long term (current) use of aspirin
CPT/HCPCS: 36415; 36569; 71045; 74018; 74019; 74176; 76937; 80048; 80053; 80162; 81000; 82947; 83690; 83735; 84100; 84134; 84478; 85007; 85025; 85027; 85610; 86850; 86900; 86901; 87077; 87088; 87324; 87449; 88304; 93005; 94640; 94660; 94664; 94760; 96365; 96375; 96376

== ENCOUNTER 2022-10-30 10:37 | Emergency (ER) | payer MEDICARE, OTHER ==
[~2022-10-30] VITALS: Ht 175.2 cm; Wt 81.6 kg
[~2022-10-30 10:37] MED LIST changes: +CEFD300C3 PO; +DILT180C85 PO; +FLUC100T10 PO; +HYDR-34 PO; +HYDR-3817 PO; +ONDA4TAB11 SL; -POTA10CA43 PO; +POTA10CA44 PO
--- NOTE | 2022-10-30 11:20 | ED Head Injury ---
General Chief Complaint: Trauma-Non Activation Stated Complaint: FALL | HEAD INJ | ON BLOOD THINNERS Source: patient Exam Limitations: no limitations History of Present Illness Date Seen by Provider: Oct 30, 2022 Time Seen by Provider: 11:10 Initial Comments 87-year-old male presents to the ED after he tripped and fell approximately 1 hour prior to arrival. Denies dizziness or loss of consciousness prior to fall. Denies loss of consciousness after fall. Denies any recent chest pain, shortness of air, abdominal pain. Currently takes Eliquis and Plavix. Allergies and Home Medications Allergies Coded Allergies: No Known Drug Allergies (Verified , 09/05/22) Patient Home Medication List Home Medication List Reviewed: Yes Apixaban (Eliquis) 5 Mg Tablet, 5 MG PO BID, (Reported) Entered as Reported by: АННА HERNANDEZ on 03/24/22 185 Cefdinir (Cefdinir) 300 Mg Capsule, 300 MG PO BID Prescribed by: CONCHA OLIVER on 09/18/22 1550 Clopidogrel Bisulfate (Clopidogrel) 75 Mg Tablet, 75 MG PO DAILY, (Reported) Entered as Reported by: ARNULFO LONDON on 09/06/22 1244 Diltiazem HCl (Diltiazem 24Hr ER) 180 Mg Cap.er.24h, 360 MG PO DAILY Prescribed by: KAREN JJ on 09/19/22 1236 Fluconazole (Fluconazole) 100 Mg Tablet, 100 MG PO DAILY Prescribed by: CONCHA OLIVER on 09/18/22 1550 Furosemide (Furosemide) 40 Mg Tablet, 40 MG PO DAILY, (Reported) Entered as Reported by: NADINE CHE on 07/14/18 0732 Hydrocodone Bit/Acetaminophen (HYDROcodone/APAP 7.5/325 TAB) 1 Ea Tablet, 1 EA PO Q6H PRN for PAIN-MODERATE (5-7) Prescribed by: KAREN JJ on 09/19/22 1236 Metoprolol Succinate (Metoprolol Succinate) 50 Mg Tab.er.24h, 50 MG PO BID, ( Reported) Entered as Reported by: ARNULFO LONDON on 09/06/22 1244 [place]-3/Dha/Epa/Fish Oil (Fish Oil EC 1,200 mg Softgel) 1 Each Capsule.dr, 1 EACH PO DAILY, (Reported) Entered as Reported by: NADINE CHE on 07/14/18 0732 Ondansetron (Ondansetron Odt) 4 Mg Tab.rapdis, 4 MG SL Q4H PRN for NAUSEA/VOMITING Prescribed by: CONCHA OLIVER on 09/18/22 1550 Pantoprazole Sodium (Pantoprazole Sodium) 40 Mg Tablet.dr, 40 MG PO HS, (Reported) Entered as Reported by: ARNULFO LONDON on 03/25/22 1341 Potassium Chloride (Potassium Chloride) 10 Meq Capsule.er, 10 MEQ PO HS, (Reported) Entered as Reported by: ARNULFO LONDON on 03/25/22 1341 Review of Systems Review of Systems Constitutional: see HPI Past [id number] Hx Patient Social History Tobacco Use?: No Use of E-Cig and/or Vaping dev: No Substance use?: No Alcohol Use?: Yes Pt feels they are or have been: No Immunizations Up To Date Tetanus Booster (TDap): Less than 5yrs PED Vaccines UTD: No Influenza Vaccine Up-to-Date: No; Not Current First/Initial COVID19 Vaccinat: 2020 Second COVID19 Vaccination Corey: 2020 Third COVID19 Vaccination Date: 2020 Seasonal Allergies Seasonal Allergies: No Past Medical History Surgery/Hospitalization HX: A-FIB, HTN,HIGH CHOLESTEROL, GERD, NM HEART STENT Surgeries: Yes (cardiac stent) Cardiac, Coronary Stent Respiratory: No Cardiac: Yes (cardiac stent, congestive heart failure) Atrial Fibrillation, Coronary Artery Disease, High Cholesterol, Hypertension Neurological: No Genitourinary: Yes Kidney Stones Gastrointestinal: Yes Abdominal Hernia, Hemorrhoids Musculoskeletal: No Endocrine: No HEENT: Yes (NOSE BLEEDS) Loss of Vision: Denies Hearing Impairment: Hearing Aide Right, Hearing Aide Left Cancer: No Psychosocial: No Integumentary: No Blood Disorders: No Adverse Reaction/Blood Tranf: No Family Medical History Completed stroke 21 FATHER G8 BROTHER FH: cancer G8 BROTHER G8 SISTER No Pertinent Family Hx Physical Exam Vital Signs Vital Signs - First Documented Capillary Refill : Height, Weight, BMI Height: 5'8.00" Weight: 185lbs. 0.0oz. [id number]; 30.32 BMI Method:Stated General Appearance: WD/WN, no apparent distress HEENT: PERRL/EOMI, normal ENT inspection, TMs normal Neck: supple, normal inspection Cardiovascular: no edema, no gallop, no JVD, no murmur, bradycardia Respiratory: lungs clear, normal breath sounds, no respiratory distress, no accessory muscle use Extremities: normal range of motion, normal inspection Cra[place] Nerves: normal hearing, normal speech, PERRL; No abnormal eye position, No abnormal pupil position, No facial asymmetry Coordination/Gait: normal gait Motor/Sensory: no motor deficit, no sensory deficit Skin: normal color, warm/dry, other (Wound to right side of head) Karyn Coma Score Best Eye Response: (4) Open Spontaneously Best Verbal Response: (5) Oriented Best Motor Response: (6) Obeys Commands Progress/Results/Core Measures Results/Orders My Orders Orders - ALIYAH BERRIOS APRN Ct Head/Cervical Spine Wo (10/30/22 11:08) Vital Signs/I&O 10/30/22 10/30/22 10:45 10:45 Temp 36.6 36.6 Pulse 60 60 Resp 18 18 B/P (MAP) 115/56 (75) 115/56 (75) Pulse Ox 98 98 O2 Delivery Room Air Room Air Progress Progress Note : Time: 11:19 Progress Note Patient seen and evaluated, resting comfortably, no acute distress. Concern for intracranial bleed due to use of Plavix and Eliquis, CT head and neck ordered. Departure Impression Primary Impression: Head injury Disposition: 01 HOME, SELF-CARE Condition: Stable Departure-Patient Inst. Decision time for Depature: 12:12 Referrals: KHUSHBU RAMON DO (PCP/Family) Primary Care Physician Patient Instructions: Head Injury in Adults Add. Discharge Instructions: Return to have your deanne removed in 7 to 10 days. Return for severe headaches, persistent vomiting, change in vision, confusion, difficulty to arouse, or any other new, concerning, or worsening symptoms. All discharge instructions reviewed with patient and/or family. Voiced understanding. ALIYAH BERRIOS APRN Oct 30, 2022 11:20
--- NOTE | 2022-10-30 11:58 | Diagnostic Imaging Report ---
PROCEDURE: CT head and CT cervical spine without contrast. TECHNIQUE: Multiple contiguous axial images were obtained through the brain and cervical spine without the use of intravenous contrast. Sagittal and coronal reformations through the cervical spine were then performed. Auto Exposure Controls were utilized during the CT exam to meet ALARA standards for radiation dose reduction. INDICATION: Fall. COMPARISON: Correlation is made with prior CT from 03/24/2022. FINDINGS: CT HEAD: Ventricles and sulci are prominent, consistent with the patient's age. No sulcal effacement or midline shift is identified. No acute intra-axial or extra-axial hemorrhage is detected. Cisterns are patent. Visualized paranasal sinuses are clear. IMPRESSION: Senescent changes. No acute intracranial process is detected. CT CERVICAL SPINE: Alignment of the cervical spine is stable. 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 This is similar to prior exam. 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 There is multilevel degenerative disc disease. No fractures identified. Prevertebral tissues are within normal limits. IMPRESSION: Stable chronic changes. No acute bony abnormality is detected. Dictated by: Dictated on workstation # [id number]
[2022-10-30 12:35] VITALS: BP 123/70
== END 2022-10-30 12:35 | disposition home or self-care (01) ==
LOC: EDUNIT# 10:37 → ER 10:39
DX: S09.90XA Unspecified injury of head, initial encounter (principal); I48.91 Unspecified atrial fibrillation; Z79.01 Long term (current) use of anticoagulants; Z79.02 Long term (current) use of antithrombotics/antiplatelets; W01.0XXA Fall on same level from slipping, tripping and stumbling without subsequent striking against object, initial encounter
CPT/HCPCS: 12001; 70450; 72125

== ENCOUNTER 2022-11-07 10:03 | Emergency (ER) | payer MEDICARE, OTHER ==
[~2022-11-07] VITALS: Ht 172 cm; Wt 81.6 kg
[2022-11-07 10:27] VITALS: BP 143/84
== END 2022-11-07 10:27 | disposition home or self-care (01) ==
LOC: EDUNIT# 10:03 → ER 10:05
DX: Z48.02 Encounter for removal of sutures (principal)

== ENCOUNTER 2023-05-02 11:03 | Inpatient (IN) | payer MEDICARE, OTHER ==
[~2023-05-02] VITALS: Ht 175.2 cm; Wt 83.2 kg
[~2023-05-02 11:03] MED LIST changes: -POTA10CA44 PO; +POTA10CA84 PO
--- NOTE | 2023-05-02 11:28 | ED Cardiac General ---
History of Present Illness General Chief Complaint: Cardiac/General Problems Stated Complaint: THROAT PAINS | ANGINA POSSIBILITY Nursing Triage Note: PT AMB TO [facility] WITH CC OF "HEARTBURN", AMADO, DISCOMFORT IN THROAT AND SHOULDERS. PT STATES THAT SYMPTOMS HAVE BEEN GOING ON FOR A MONTH BUT HAVE BEEN WORSE THE LAST WEEK. PT REPORTED THAT THE LAST 3 NIGHTS HAVE BEEN MISERABLE. PT HAD STENT PLACED 6 MONTHS AGO. History of Present Illness Date Seen by Provider: May 02, 2023 Time Seen by Provider: 11:28 Initial Comments 87-year-old male presents with recurrent current discomfort in his throat and shoulders. He reports that the symptoms been going on and off for about a month but have been worse over the last week. He reports that the last 3 nights of been miserable. He did have a stent placed approximately 6 months ago. Patient has an appointment with Dr. Divine singh who sent him to the ER for lab work and admission for unstable angina, he is feeling better at this time did not have any symptoms. Also asked why he was here that if we get look at his eye that he feels like he may have something in the lower lid. Allergies and Home Medications Allergies Coded Allergies: No Known Drug Allergies (Verified , 09/05/22) Patient Home Medication List Home Medication List Reviewed: Yes Apixaban (Eliquis) 5 Mg Tablet, 5 MG PO BID, (Reported) Entered as Reported by: АННА HERNANDEZ on 03/24/22 185 Cefdinir (Cefdinir) 300 Mg Capsule, 300 MG PO BID Prescribed by: CONCHA OLIVER on 09/18/22 1550 Clopidogrel Bisulfate (Clopidogrel) 75 Mg Tablet, 75 MG PO DAILY, (Reported) Entered as Reported by: ARNULFO LONDON on 09/06/22 1244 Diltiazem HCl (Diltiazem 24Hr ER) 180 Mg Cap.er.24h, 360 MG PO DAILY Prescribed by: KAREN JJ on 09/19/22 1236 Fluconazole (Fluconazole) 100 Mg Tablet, 100 MG PO DAILY Prescribed by: CONCHA OLIVER on 09/18/22 1550 Furosemide (Furosemide) 40 Mg Tablet, 40 MG PO DAILY, (Reported) Entered as Reported by: NADINE CHE on 07/14/18 0732 Hydrocodone Bit/Acetaminophen (HYDROcodone/APAP 7.5/325 TAB) 1 Ea Tablet, 1 EA PO Q6H PRN for PAIN-MODERATE (5-7) Prescribed by: KAREN JJ on 09/19/22 1236 Metoprolol Succinate (Metoprolol Succinate) 50 Mg Tab.er.24h, 50 MG PO BID, (Reported) Entered as Reported by: ARNULFO LONDON on 09/06/22 1244 [place]-3/Dha/Epa/Fish Oil (Fish Oil EC 1,200 mg Softgel) 1 Each Capsule.dr, 1 EACH PO DAILY, (Reported) Entered as Reported by: NADINE CHE on 07/14/18 0732 Ondansetron (Ondansetron Odt) 4 Mg Tab.rapdis, 4 MG SL Q4H PRN for NAUSEA/VOMITING Prescribed by: CONCHA OLIVER on 09/18/22 1550 Pantoprazole Sodium (Pantoprazole Sodium) 40 Mg Tablet.dr, 40 MG PO HS, (Reported) Entered as Reported by: ARNULFO LONDON on 03/25/22 1341 Potassium Chloride (Potassium Chloride) 10 Meq Capsule.er, 10 MEQ PO HS, (Reported) Entered as Reported by: ARNULFO LONDON on 03/25/22 1341 Review of Systems Review of Systems Constitutional: see HPI EENTM: See HPI Respiratory: See HPI Cardiovascular: See HPI Gastrointestinal: No Symptoms Reported Genitourinary: No Symptoms Reported Musculoskeletal: see HPI Skin: no symptoms reported Past Jhokhns-Hqtbtc-Isylqj Hx Patient Social History Tobacco Use?: No Substance use?: No Alcohol Use?: Yes Alcohol type: Beer Alcohol Frequency: Once in a while Immunizations Up To Date Tetanus Booster (TDap): Less than 5yrs PED Vaccines UTD: No First/Initial COVID19 Vaccinat: 2020 Second COVID19 Vaccination Corey: 2020 Third COVID19 Vaccination Date: 2020 Seasonal Allergies Seasonal Allergies: No Past Medical History Surgery/Hospitalization HX: A-FIB, HTN,HIGH CHOLESTEROL, GERD, PR HEART STENT Surgeries: Yes (cardiac stent) Cardiac, Coronary Stent Respiratory: No Cardiac: Yes (cardiac stent, congestive heart failure) Atrial Fibrillation, Coronary Artery Disease, High Cholesterol, Hypertension Neurological: No Genitourinary: Yes Kidney Stones Gastrointestinal: Yes Abdominal Hernia, Hemorrhoids Musculoskeletal: No Endocrine: No HEENT: Yes (NOSE BLEEDS) Loss of Vision: Denies Hearing Impairment: Hearing Aide Right, Hearing Aide Left Cancer: No Psychosocial: No Integumentary: No Blood Disorders: No Adverse Reaction/Blood Tranf: No Family Medical History Completed stroke 19 FATHER G8 BROTHER FH: cancer G8 BROTHER G8 SISTER No Pertinent Family Hx Physical Exam Vital Signs Vital Signs - First Documented 05/02/23 11:18 Pulse 85 B/P (MAP) 127/99 (108) Pulse Ox 97 O2 Delivery Room Air Capillary Refill : Height, Weight, BMI Height: 5'8.00" Weight: 185lbs. 0.0oz. 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 Norm as Tested Skin: Normal Color, Warm/Dry Progress/Results/Core Measures Results/Orders Lab Results Laboratory Tests Test 05/02/23 11:50 Range/Units White Blood Count 9.3 4.3-11.0 10^3/uL Red Blood Count 4.95 4.30-5.52 10^6/uL Hemoglobin 14.3 13.3-17.7 g/dL Hematocrit 45 40-54 % Mean Corpuscular Volume 91 80-99 fL Mean Corpuscular Hemoglobin 29 25-34 pg Mean Corpuscular Hemoglobin Concent 32 32-36 g/dL Red Cell Distribution Width 17.0 H 10.0-14.5 % Platelet Count 228 130-400 10^3/uL Mean Platelet Volume 10.7 9.0-12.2 fL Immature Granulocyte % (Auto) 1 % Neutrophils (%) (Auto) 71 42-75 % Lymphocytes (%) (Auto) 16 12-44 % Monocytes (%) (Auto) 11 0-12 % Eosinophils (%) (Auto) 1 0-10 % Basophils (%) (Auto) 0 0-10 % Neutrophils # (Auto) 6.6 1.8-7.8 10^3/uL Lymphocytes # (Auto) 1.5 1.0-4.0 10^3/uL Monocytes # (Auto) 1.0 0.0-1.0 10^3/uL Eosinophils # (Auto) 0.1 0.0-0.3 10^3/uL Basophils # (Auto) 0.0 0.0-0.1 10^3/uL Immature Granulocyte # (Auto) 0.1 0.0-0.1 10^3/uL Sodium Level 142 135-145 MMOL/L Potassium Level 3.7 3.6-5.0 MMOL/L Chloride Level 102 98-107 MMOL/L Carbon Dioxide Level 30 21-32 MMOL/L Anion Gap 10 5-14 MMOL/L Blood Urea Nitrogen 24 H 7-18 MG/DL Creatinine 1.69 H 0.60-1.30 MG/DL Estimat Glomerular Filtration Rate 39 BUN/Creatinine Ratio 14 Glucose Level 97 70-105 MG/DL Calcium Level 9.5 8.5-10.1 MG/DL Corrected Calcium 9.3 8.5-10.1 MG/DL Total Bilirubin 0.7 0.1-1.0 MG/DL Aspartate Amino Transf (AST/SGOT) 21 5-34 U/L Alanine Aminotransferase (ALT/SGPT) 19 0-55 U/L Alkaline Phosphatase 87 40-136 U/L Troponin I 1.065 *H <0.028 NG/ML Total Protein 7.4 6.4-8.2 GM/DL Albumin 4.3 3.2-4.5 GM/DL My Orders Orders - STEFANY CALDERÓN DO Ekg Tracing (05/02/23 11:17) Cbc With Automated Diff (05/02/23 11:28) Comprehensive Metabolic Panel (05/02/23 11:28) Troponin I [place] (05/02/23 11:28) Ed Iv/Invasive Line Start (05/02/23 13:01) Ns Iv 1000 Ml (Sodium Chloride 0.9%) (05/02/23 13:15) Ed Admission (Communication) (05/02/23 13:05) Vital Signs/I&O 05/02/23 11:18 Pulse 85 B/P (MAP) 127/99 (108) Pulse Ox 97 O2 Delivery Room Air Blood Pressure Mean: 108 Progress Progress Note : Progress Note Diagnostic studies were ordered reviewed and interpreted by me. Patient's EKG shows no acute significant changes. Patient's labs show a slight elevation of his BUN and creatinine above his baseline indicating some mild acute kidney injury. Patient has a slight elevation of troponin however this appears to be near his baseline from previous studies. Patient will receive IV fluids. Patient to be admitted to Dr. Burris for serial troponin and evaluation. Dr. Haskins will be consulting with determination of treatment based on serial troponins and further evaluation. Patient was stable upon admission and remain pain-free throughout his stay. Patient does have an incidental stye that could be treated with warm compress and medication per hospitalist choice. Initial ECG Impression Date: May 02, 2023 Initial ECG Impression Time: 11:23 Initial ECG Rate: 69 Initial ECG Rhythm: A Fib/Flutter Initial ECG Impression: Nonspecific Changes Comment no acute changes. Departure Impression Primary Impression: Unstable angina Additional Impressions: Hordeolum externum left lower eyelid Acute kidney injury Disposition: ADMITTED INPATIENT Condition: Stable Admissions Decision to Admit Reason: Admit from ER (General) Decision to Admit/Date: May 02, 2023 Time/Decision to Admit Time: 12:30 Departure-Patient Inst. Referrals: KHUSHBU RAMON DO (PCP/Family) Primary Care Physician STEFANY CALDERÓN DO May 02, 2023 11:28
[2023-05-02 11:57] LABS: BASOPHILS % (AUTO) 0 % (0-10); EOSINOPHILS # (AUTO) 0.1 10^3/uL (0.0-0.3); EOSINOPHILS % (AUTO) 1 % (0-10); HEMATOCRIT 45 % (40-54); HEMOGLOBIN 14.3 g/dL (13.3-17.7); LYMPHOCYTES # (AUTO) 1.5 10^3/uL (1.0-4.0); LYMPHOCYTES % (AUTO) 16 % (12-44); MEAN CORPUSCULAR HEMOGLOBIN 29 pg (25-34); MEAN CORPUSCULAR HGB CONC 32 g/dL (32-36); MEAN CORPUSCULAR VOLUME 91 fL (80-99); MEAN PLATELET VOLUME 10.7 fL (9.0-12.2); MONOCYTES % (AUTO) 11 % (0-12); NEUTROPHILS # (AUTO) 6.6 10^3/uL (1.8-7.8); NEUTROPHILS % (AUTO) 71 % (42-75); PLATELET COUNT 228 10^3/uL (130-400); WHITE BLOOD COUNT 9.3 10^3/uL (4.3-11.0)
[2023-05-02 12:06] LABS: ALBUMIN 4.3 GM/DL (3.2-4.5)
[2023-05-02 12:07] LABS: POTASSIUM 3.7 MMOL/L (3.6-5.0)
[2023-05-02 12:08] LABS: CALCIUM 9.5 MG/DL (8.5-10.1)
[2023-05-02 12:09] LABS: TOTAL PROTEIN 7.4 GM/DL (6.4-8.2)
[2023-05-02 12:11] LABS: BILIRUBIN,TOTAL 0.7 MG/DL (0.1-1.0)
[2023-05-02 12:13] LABS: CREATININE SERUM 1.69 MG/DL (0.60-1.30)
[2023-05-02] MEDS ORDERED: NS IV 1000 ML 1,000 ML IV SCH (13:15)
[2023-05-02] MEDS ORDERED: ONDANSETRON INJECTION 4 MG/2 ML (SDV) IV PRN (14:30)
[2023-05-02] MEDS ORDERED: ONDANSETRON 4 MG ORAL DISSOLVE TABLET PO PRN (14:30)
[2023-05-02] MEDS ORDERED: BISACODYL 10 MG SUPPOSITORY PR PRN (14:30)
[2023-05-02] MEDS ORDERED: ACETAMINOPHEN 325 MG TABLET PO PRN (14:30)
[2023-05-02] MEDS ORDERED: LACTULOSE SYRUP 10GM/15ML 30ML UDC PO PRN (14:30)
[2023-05-02] MEDS ORDERED: ANTACID SUSPENSION 30 ML UDC PO PRN (14:30)
[2023-05-02] MEDS ORDERED: MELATONIN 3 MG TABLET PO PRN (14:30)
[2023-05-02] MEDS ORDERED: MILK OF MAGNESIA 400 MG/5 ML 30 ML UDC PO PRN (14:30)
[2023-05-02 15:31] VITALS: BP 127/99
[2023-05-02] MEDS ORDERED: RT-ALBUTEROL SULF 2.5 MG/3 ML PRE-MIX VIAL INH PRN (16:00)
[2023-05-02] MEDS: ENOXAPARIN 80 MG/0.8 ML SYRINGE SC SCH (18:52)
[2023-05-02 20:00] VITALS: BP 99/55
--- NOTE | 2023-05-02 20:11 | History & Physical-Hospitalist ---
History of Present Illness HPI/Chief Complaint Minh Aranda is an 87 year old male with PMH HTN, CAD, AFib, CHF, history of cardiac arrest, GERD, who presented with chest pain. He reports pain in his chest which radiated to his shoulders. He also reports radiation to his right arm. He denies nausea and vomiting. He denies shortness of breath. He has no other complaints. He was sent to the ER from Dr. Haskins's office for evaluation. Source: patient Exam Limitations: no limitations Date Seen 05/02/23 Time Seen by a Provider: 18:00 Attending Physician Barney Chu DO PCP Admitting Physician: Quinton Lizama MD Attending Physician: Quinton Lizama MD Referring Physician Date of Admission May 02, 2023 at 14:06 Home Medications & Allergies Home Medications Reviewed patient Home Medication Reconciliation performed by pharmacy medication reconciliations set up mold technician and/or nursing. Patients Allergies have been reviewed. Allergies Allergies Coded Allergies No Known Drug Allergies (Zsheqams74/22/22) Past Yzseuuq-Xuscil-Wkmxjd Hx Patient Social History Tobacco Use?: No Use of E-Cig and/or Vaping dev: No Substance use?: No Alcohol Use?: No Alcohol type: Beer Alcohol Frequency: Once in a while Pt feels they are or have been: No Immunizations Up To Date First/Initial COVID19 Vaccinat: 2020 Second COVID19 Vaccination Corey: 2020 Tetanus Booster (TDap): More Than 5 Years Hepatitis A: No Hepatitis B: No PED Vaccines UTD: No Seasonal Allergies Seasonal Allergies: No Current Status Advance Directives: No Advance Directive Location: [facility] Primary Language: Burmese Preferred Spoken Language: Burmese Is interpretation needed?: No Implanted or Applied Medical D: Orthopedic hardware, Stents Past Medical History Surgeries: Cardiac, Coronary Stent Atrial Fibrillation, Coronary Artery Disease, High Cholesterol, Hypertension Kidney Stones Abdominal Hernia, Hemorrhoids Loss of Vision: Denies Hearing Impairment: Hearing Aide Right, Hearing Aide Left Blood Disorders: No Adverse Reaction/Blood Tranf: No Family Medical History Completed stroke 19 FATHER G8 BROTHER FH: cancer G8 BROTHER G8 SISTER No Pertinent Family Hx Review of Systems Constitutional: no symptoms reported Respiratory: no symptoms reported Cardiovascular: chest pain Gastrointestinal: no symptoms reported Physical Exam Physical Exam Vital Signs Vital Signs - First Documented 05/02/23 05/02/2323 11:18 15:31 20:00 Temp 36.6 Pulse 85 Resp 20 B/P (MAP) 127/99 (108) Pulse Ox 97 O2 Delivery Room Air FiO2 21 Capillary Refill : Height, Weight, BMI Height: 5'8.00" Weight: 185lbs. 0.0oz. 83.536495zk; 27.04 BMI Method:Stated General Appearance: No Apparent Distress, WD/WN HEENT: Pharynx Normal Neck: Normal Inspection, Supple Respiratory: Lungs Clear, Normal Breath Sounds, No Respiratory Distress Cardiovascular: Regular Rate, Rhythm, No Edema, No Murmur Gastrointestinal: Normal Bowel Sounds, Non Tender, Soft Extremity: Normal Inspection, No Pedal Edema Neurologic/Psychiatric: Alert, Oriented x3, Normal Mood/Affect Skin: Normal Color, Warm/Dry Results Results/Procedures Labs Laboratory Tests 05/02/23 11:50 Patient resulted labs reviewed. Imaging: Reviewed Imaging Report Assessment/Plan Admission Diagnosis NSTEMI Admission Status: Inpatient Order (span 2 midnights) Reason for Inpatient Admission: Cardiology evaluation Assessment and Plan NSTEMI CAD HTN HLD AFib HFpEF History of cardiac arrest Troponin significantly elevated EKG unremarkable Cardiology consulted ASA and Plavix Therapeutic Lovenox Lipitor Continue Metoprolol NPO after midnight for possible left heart cath JESICA IV fluids Diagnosis/Problems Diagnosis/Problems (1) NSTEMI (non-ST elevation myocardial infarction) Status: Acute (2) CAD (coronary artery disease) Status: Acute (3) HTN (hypertension) Status: Chronic (4) HLD (hyperlipidemia) Status: Chronic (5) (HFpEF) heart failure with preserved ejection fraction Status: Chronic Qualifiers: Heart failure chronicity: chronic Qualified Codes: I50.32 - Chronic diastolic (congestive) heart failure (6) History of cardiac arrest Status: Chronic (7) JESICA (acute kidney injury) Status: Acute QUINTON LIZAMA MD May 02, 2023 20:11
[2023-05-02] MEDS: DOCUSATE SODIUM 100 MG CAPSULE PO SCH (20:34)
[2023-05-02] MEDS: SENNOSIDES 8.6 MG (SENOKOT) TAB PO SCH (20:34)
[2023-05-02 23:32] VITALS: BP 124/74
[2023-05-03] MEDS: ENOXAPARIN 80 MG/0.8 ML SYRINGE SC SCH ×2 (03:08→16:22)
[2023-05-03 04:04] VITALS: BP 147/92
[2023-05-03 04:52] LABS: BASOPHILS # (AUTO) 0.1 10^3/uL (0.0-0.1); BASOPHILS % (AUTO) 1 % (0-10); EOSINOPHILS # (AUTO) 0.2 10^3/uL (0.0-0.3); EOSINOPHILS % (AUTO) 2 % (0-10); HEMATOCRIT 43 % (40-54); HEMOGLOBIN 13.7 g/dL (13.3-17.7); LYMPHOCYTES # (AUTO) 1.8 10^3/uL (1.0-4.0); LYMPHOCYTES % (AUTO) 20 % (12-44); MEAN CORPUSCULAR HEMOGLOBIN 28 pg (25-34); MEAN CORPUSCULAR HGB CONC 32 g/dL (32-36); MEAN CORPUSCULAR VOLUME 90 fL (80-99); MEAN PLATELET VOLUME 10.9 fL (9.0-12.2); MONOCYTES # (AUTO) 0.9 10^3/uL (0.0-1.0); MONOCYTES % (AUTO) 10 % (0-12); NEUTROPHILS # (AUTO) 5.8 10^3/uL (1.8-7.8); NEUTROPHILS % (AUTO) 67 % (42-75); PLATELET COUNT 202 10^3/uL (130-400); WHITE BLOOD COUNT 8.7 10^3/uL (4.3-11.0)
[2023-05-03 05:05] LABS: CALCIUM 8.5 MG/DL (8.5-10.1); CREATININE SERUM 1.37 MG/DL (0.60-1.30); POTASSIUM 3.6 MMOL/L (3.6-5.0)
[2023-05-03 08:00] VITALS: BP 137/110
[2023-05-03] MEDS ORDERED: CLOPIDOGREL 75 MG TABLET PO SCH (09:00)
[2023-05-03] MEDS: ASPIRIN 81 MG CHEWABLE TABLET PO SCH (09:17)
[2023-05-03] MEDS: CALCIUM CARBONATE 500 MG CHEW TABLET PO PRN ×2 (09:25→09:41)
[2023-05-03] MEDS: DOCUSATE SODIUM 100 MG CAPSULE PO SCH ×2 (09:44→21:04)
[2023-05-03] MEDS: SENNOSIDES 8.6 MG (SENOKOT) TAB PO SCH ×2 (09:44→21:04)
[2023-05-03] MEDS ORDERED: LIDOCAINE 1% INJ 20 ML VIAL ONE (10:21)
[2023-05-03] MEDS ORDERED: NS IV 1000 ML 1,000 ML ONE (10:21)
[2023-05-03] MEDS ORDERED: HEParin (CATH LAB) 2,000 ML IV ONE (10:21)
[2023-05-03 11:52] VITALS: BP 121/91
[2023-05-03] MEDS ORDERED: MIDAZOLAM INJ 5 MG/5 ML VIAL ONE (13:36)
[2023-05-03] MEDS ORDERED: fentaNYL INJECTION 100 MCG/2 ML VIAL ONE (13:36)
[2023-05-03] MEDS ORDERED: HEParin (CATH LAB) 1,000 ML IV ONE (13:59)
--- NOTE | 2023-05-03 14:23 | Consultation-Cardiology ---
HPI-Cardiology Cardiology Consultation: Date of Consultation 05/03/23 Date of Admission Attending Physician Barney Chu DO Admitting Physician Admitting Physician: Kaley Burris MD Attending Physician: Kaley Burris MD Consulting Physician Juan NEVES MD HPI: Time Seen by a Provider: 11:00 Chief Complaint: Chest pain This is a 87-year-old gentleman who is a patient of Dr. Haskins. He has previous history of PCI done in March 2022. He also has history of paroxysmal atrial fibrillation, hypertension and GERD. He presents with prolonged episode of chest pain. He denies active smoking. Review of Systems-Cardiology Review of Systems Constitutional: no symptoms reported Eyes: no symptoms reported Ears/Nose/Throat: no symptoms reported Respiratory: no symptoms reported Cardiovascular: chest pain Gastrointestinal: no symptoms reported Genitourinary: no symptoms reported Musculoskeletal: no symptoms reported Skin: no symptoms reported Psychiatric/Neurological: no symptoms reported WOU-Ghzrnt-Xsdakc Hx Patient Social History 2nd Hand Smoke Exposure: No Alcohol Use?: No Pt feels they are or have been: No Immunizations Up To Date Tetanus Booster (TDap): Less than 5yrs Past Medical History PMH As described under Assessment. Family Medical History Family Medical History: He does not report fam h/o early CAD or SCD Family History: Completed stroke 19 FATHER G8 BROTHER FH: cancer G8 BROTHER G8 SISTER Allergies and Home Medications Allergies Coded Allergies: No Known Drug Allergies (Verified , 09/05/22) Patient Home Medication List Home Medication List Reviewed: Yes Apixaban (Eliquis) 5 Mg Tablet, 5 MG PO BID, (Reported) Entered as Reported by: АННА HERNANDEZ on 03/24/22 1852 Cefdinir (Cefdinir) 300 Mg Capsule, 300 MG PO BID Prescribed by: CONCHA OLIVER on 09/18/22 1550 Clopidogrel Bisulfate (Clopidogrel) 75 Mg Tablet, 75 MG PO DAILY, (Reported) Entered as Reported by: ARUNLFO LONDON on 09/06/22 1244 Diltiazem HCl (Diltiazem 24Hr ER) 180 Mg Cap.er.24h, 360 MG PO DAILY Prescribed by: KAREN JJ on 09/19/22 1236 Fluconazole (Fluconazole) 100 Mg Tablet, 100 MG PO DAILY Prescribed by: CONCHA OLIVER on 09/18/22 1550 Furosemide (Furosemide) 40 Mg Tablet, 40 MG PO DAILY, (Reported) Entered as Reported by: NADINE CHE on 07/14/18 0732 Hydrocodone Bit/Acetaminophen (HYDROcodone/APAP 7.5/325 TAB) 1 Ea Tablet, 1 EA PO Q6H PRN for PAIN-MODERATE (5-7) Prescribed by: KAREN JJ on 09/19/22 1236 Metoprolol Succinate (Metoprolol Succinate) 50 Mg Tab.er.24h, 50 MG PO BID, (Reported) Entered as Reported by: ARNULFO LONDON on 09/06/22 1244 [place]-3/Dha/Epa/Fish Oil (Fish Oil EC 1,200 mg Softgel) 1 Each Capsule.dr, 1 EACH PO DAILY, (Reported) Entered as Reported by: NADINE CHE on 07/14/18 0732 Ondansetron (Ondansetron Odt) 4 Mg Tab.rapdis, 4 MG SL Q4H PRN for NAUSEA/VOMITING Prescribed by: CONCHA OLIVER on 09/18/22 1550 Pantoprazole Sodium (Pantoprazole Sodium) 40 Mg Tablet.dr, 40 MG PO HS, (Reported) Entered as Reported by: ARNULFO LONDON on 03/25/22 1341 Potassium Chloride (Potassium Chloride) 10 Meq Capsule.er, 10 MEQ PO HS, (Reported) Entered as Reported by: ARNULFO LONDON on 03/25/22 1341 Exam Vital Signs Vital Signs Date Time Temp Pulse Resp B/P (MAP) Pulse Ox O2 Delivery O2 Flow Rate FiO2 05/03/23 12:41 90 05/03/23 11:52 36.6 8 121/91 (101) 96 Room Air 05/03/23 10:28 0.00 05/02/23 15:31 21 Physical Exam Constitutional exam: No respiratory distress. Chest: Clear to auscultation bilaterally. CVS: Irregular rhythm. No significant murmur. Neuro: Nonfocal. No significant pedal edema Labs Laboratory Tests Test 05/02/23 17:22 05/02/23 23:35 05/03/23 04:31 Range/Units Troponin I 1.306 *H 1.176 *H <0.028 NG/ML White Blood Count 8.7 4.3-11.0 10^3/uL Red Blood Count 4.85 4.30-5.52 10^6/uL Hemoglobin 13.7 13.3-17.7 g/dL Hematocrit 43 40-54 % Mean Corpuscular Volume 90 80-99 fL Mean Corpuscular Hemoglobin 28 25-34 pg Mean Corpuscular Hemoglobin Concent 32 32-36 g/dL Red Cell Distribution Width 16.7 H 10.0-14.5 % Platelet Count 202 130-400 10^3/uL Mean Platelet Volume 10.9 9.0-12.2 fL Immature Granulocyte % (Auto) 0 % Neutrophils (%) (Auto) 67 42-75 % Lymphocytes (%) (Auto) 20 12-44 % Monocytes (%) (Auto) 10 0-12 % Eosinophils (%) (Auto) 2 0-10 % Basophils (%) (Auto) 1 0-10 % Neutrophils # (Auto) 5.8 1.8-7.8 10^3/uL Lymphocytes # (Auto) 1.8 1.0-4.0 10^3/uL Monocytes # (Auto) 0.9 0.0-1.0 10^3/uL Eosinophils # (Auto) 0.2 0.0-0.3 10^3/uL Basophils # (Auto) 0.1 0.0-0.1 10^3/uL Immature Granulocyte # (Auto) 0.0 0.0-0.1 10^3/uL Sodium Level 139 135-145 MMOL/L Potassium Level 3.6 3.6-5.0 MMOL/L Chloride Level 105 98-107 MMOL/L Carbon Dioxide Level 23 21-32 MMOL/L Anion Gap 11 5-14 MMOL/L Blood Urea Nitrogen 20 H 7-18 MG/DL Creatinine 1.37 H 0.60-1.30 MG/DL Estimat Glomerular Filtration Rate 51 BUN/Creatinine Ratio 15 Glucose Level 94 70-105 MG/DL Calcium Level 8.5 8.5-10.1 MG/DL ECG Impression ECG Initial ECG Rhythm: A Fib/Flutter Comment Atrial fibrillation. Inferior Q waves. ST depression in the leads I and aVL and V4 V5. A/P-Cardiology Assessment/Admission Diagnosis Non-STEMI, CAD/PCI, Hypertension, Hyperlipidemia, Longstanding persistent atrial fibrillation, Chronic oral anticoagulation Plan Non-STEMI, CAD/PCI, positive troponin with ST depressions on EKG. Coronary angiography with possible intervention is recommended. Informed consent was taken including risk of . Patient and family excepted all risk and would like to proceed with angiogram with possible intervention. Continue Plavix for now. Patient previously had LAD PCI. Hypertension, stable. Hyperlipidemia, no clinical issues. Longstanding persistent atrial fibrillation, Chronic oral anticoagulation. We will attempt radial approach. Juan NEVES MD May 03, 2023 14:23
--- NOTE | 2023-05-03 14:27 | Cardiac Procedure Note-CS/ASA ---
Pre-Procedure Note Pre-Op Procedure Note Date H&P Reviewed: May 03, 2023 Time H&P Reviewed: 14:26 History & Physical: H&P Reviewed, No changes noted Pre-Operative Diagnosis: Non-STEMI Moderate Sedation PreProcedure Time 14:26 ASA Score 3 Airway Lungs Heart ASA score ASA 1: a normal healthy patient ASA 2: a patient with a mild systemic disease (mid diabetes, controlled hypertension, obesity ASA 3: a patient with a severe systemic disease that limits activity (angina, COPD, prior Myocardial infarction) ASA 4: a patient with an incapacitating disease that is a constant threat to life (CHF, renal failure) ASA 5: a moribund patient not expected to survive 24 hrs. (ruptured aneurysm) ASA 6: a declared brain- patient whose organs are being harvested. For emergent operations, add the letter E after the classification Mallampati Classification Grade 1 Sedation Plan Analgesia, Amnesia, Plan communicated to team members, Discussed options with patient/fam, Discussed risks with patient/fam The patient is an appropriate candidate to undergo the planned procedure, sedation, and anesthesia. The patient immediately re-assessed prior to indication. Juan NEVES MD May 03, 2023 14:27
[2023-05-03] MEDS ORDERED: NITRO DRIP 25000 MCG/D5W 0 ML IV ONE (14:38)
[2023-05-03] MEDS ORDERED: HEParin 1000 UNIT/ML (10ML VIAL) FOR BOLUS ONE (14:38)
[2023-05-03] MEDS ORDERED: TICAGRELOR 90 MG TABLET (BRILINTA) PO ONE (14:50)
--- NOTE | 2023-05-03 15:26 | Progress Note - Hospitalist ---
Subjective HPI/CC On Admission Date Seen by Provider: May 03, 2023 Time Seen by Provider: 10:50 Minh Aranda is an 87 year old male with PMH HTN, CAD, AFib, CHF, history of cardiac arrest, GERD, who presented with chest pain. He reports pain in his chest which radiated to his shoulders. He also reports radiation to his right a rm. He denies nausea and vomiting. He denies shortness of breath. He has no other complaints. He was sent to the ER from Dr. Haskins's office for evaluation. Subjective/Events-last exam He is having some pain in his neck and shoulders. He denies shortness of breath. He denies nausea. Objective Exam Vital Signs Vital Signs Date Time Temp Pulse Resp B/P (MAP) Pulse Ox O2 Delivery O2 Flow Rate FiO2 05/03/23 12:41 90 05/03/23 11:52 36.6 8 121/91 (101) 96 Room Air 05/03/23 10:28 0.00 05/02/23 15:31 21 Capillary Refill : General Appearance: No Apparent Distress, WD/WN Respiratory: Lungs Clear, No Respiratory Distress Cardiovascular: Regular Rate, Rhythm, No Murmur Gastrointestinal: Normal Bowel Sounds, Soft Extremity: Normal Inspection, Pedal Edema Neurologic/Psychiatric: Alert, Normal Mood/Affect Results/Procedures Lab Laboratory Tests 05/03/23 04:31 Patient resulted labs reviewed. Imaging: Reviewed Imaging Report Assessment/Plan Assessment and Plan Assess & Plan/Chief Complaint NSTEMI CAD HTN HLD AFib HFpEF History of cardiac arrest Troponin significantly elevated, stable EKG with ST depressions Cardiology following ASA and Plavix Therapeutic Lovenox Lipitor Metoprolol NPO for left heart cath today JESICA Improving IV fluids Diagnosis/Problems Diagnosis/Problems (1) NSTEMI (non-ST elevation myocardial infarction) Status: Acute (2) CAD (coronary artery disease) Status: Acute (3) HTN (hypertension) Status: Chronic (4) HLD (hyperlipidemia) Status: Chronic (5) (HFpEF) heart failure with preserved ejection fraction Status: Chronic Qualifiers: Heart failure chronicity: chronic Qualified Codes: I50.32 - Chronic diastolic (congestive) heart failure (6) History of cardiac arrest Status: Chronic (7) JESICA (acute kidney injury) Status: Acute QUINTON LIZAMA MD May 03, 2023 15:26
[2023-05-03] MEDS ORDERED: PATIENT MAY USE OWN MEDS, ALL PO SCH (15:30)
--- NOTE | 2023-05-03 15:33 | Coronary Angiography & PCI ---
Coronary Angiography & PCI DATE OF PROCEDURE: 05/03/23 INDICATION: Non-STEMI PREOPERATIVE DIAGNOSIS: Non-STEMI POSTOPERATIVE DIAGNOSIS: Non-STEMI, successful PCI to distal RCA/ostial RPDA. Moderate to severe ostial LAD stenosis. HISTORY: This is a 87-year-old gentleman who has history of CAD/PCI. He presents with non-STEMI. Therefore, the patient was scheduled for coronary angiography. PROCEDURES PERFORMED: 1.Coronary angiography. 2.Left heart catheterization. 3.PCI to the Distal RCA/ostial RPDA. COMPLICATIONS: None. SPECIMENS: None. ESTIMATED BLOOD LOSS: 10 mL ANESTHESIA: Conscious sedation ANTICOAGULATION: IV heparin CONTRAST: 124 ml FLUOROSCOPY: 9.5 minutes FLOUROSCOPY DOSE: 1825 mgy. PROCEDURE DETAILS: The patient is a 87 male and was brought to the chemical laboratory technician after informed consent was taken. All the risks and complications were explained in detail; this included the risk of bleeding, vascular damage, stroke, KS and even . The patient was draped and prepped in the usual sterile fashion. Access was gained in the right femoral artery with a 6 [place]uran sheath. Coronary angiography and left heart catheterization was performed with the JR and JL 4. FINDINGS: 1.Left main: Patent. 2.LAD: Moderate to severe ostial LAD stenosis with haziness noted. Patent stent. Severe diffuse disease. 3.Left circumflex artery: Moderate stenosis of the ostial/proximal segment. Diffuse disease distally. 4.RCA: Moderate In-stent stenosis of a Proximal RCA stent. Severe 95% stenosis of the distal RCA/ostial PDA. Diffuse distal disease. 5.Left heart catheterization: Aortic pressure 142/89 mmHg. LV pressure 145/18 mmHg. LVEDP 24 mmHg. No LV gram done due to increased creatinine. No gradient across the aortic valve. RECOMMENDATIONS: PCI to the distal RCA/ostial RPDA is Recommended. INTERVENTION DETAILS: JR4 guide catheter. Brilinta 180 mg bolus given. Patient was previously on Plavix. Heparin given. ACT 268 seconds. The lesion was crossed with a BMW wire.Predilatation with the semicompliant 2.5 x 15 mm balloon for 8 jina for 17 seconds.We also predilated the in-stent stenosis at 16 jina for 21 seconds.We then deployed a Xience size Skypoint 2.5 x 23 mm stent at 12 jina for 15 seconds in the distal RCA/ostial RPDA. Residual stenosis 0%. Initial stenosis was 95%. Initial ARTEM-3 flow. Final flow was ARTEM-3 as well. Excellent angiographic results. We then took noncompliant Balloon 3.0 x 15 mm and postdilated at 16 jina for 21 seconds the in-stent stenosis in the RCA stent. Mild residual disease still noted. ARTEM-3 flow. The wire and interventional equipment was taken out. Post angiogram showed no residual stenosis with ARTEM-3 flow and no vascular complication. Minx closure of the RFA. Patient has no chest pain and left the Outpatient Physical Therapist with stable hemodynamics. CONCLUSIONS: 1. Non-STEMI. 2. Severe stenosis of the distal RCA/ostial right PDA which was treated successfully with a drug-eluting stent. 3. Moderate in-stent restenosis of proximal RCA stent which was treated with PTCA alone. 4. Moderate to severe stenosis noted in the ostium of the LAD just before a previously placed proximal LAD stent. Moderate disease in the ostial/proximal segment of the left circumflex artery. Will either require a staged procedure or medical therapy. Will discuss with Patient's ivory carver Dr. Haskins. 5. Change Plavix to Brilinta. Continue Eliquis. Monitor kidney function. Rick Murphy MD, FACP, FACC, [facility] Interventional Cardiology Juan MURPHY MD May 03, 2023 15:32
[2023-05-03 16:00] VITALS: BP 151/101
[2023-05-03] MEDS: NS IV 1000 ML 1,000 ML IV SCH (18:10)
[2023-05-03] MEDS: amLODIPine 5 MG TABLET PO SCH (18:22)
[2023-05-03 20:00] VITALS: BP 162/92
[2023-05-03] MEDS: APIXABAN 5 MG TABLET PO SCH (21:13)
[2023-05-03] MEDS: TICAGRELOR 90 MG TABLET (BRILINTA) PO SCH (21:14)
[2023-05-03] MEDS: amLODIPine 5 MG TABLET ONE ×2 (21:15→22:47)
[2023-05-04] VITALS (7 sets, daily range): BP systolic 125–158; BP diastolic 85–103
[2023-05-04] MEDS: ENOXAPARIN 80 MG/0.8 ML SYRINGE SC SCH ×2 (02:21→16:02)
[2023-05-04] MEDS: NS IV 1000 ML 1,000 ML IV SCH ×3 (02:21→21:26)
[2023-05-04 04:35] LABS: BASOPHILS % (AUTO) 1 % (0-10); EOSINOPHILS # (AUTO) 0.2 10^3/uL (0.0-0.3); EOSINOPHILS % (AUTO) 2 % (0-10); HEMATOCRIT 43 % (40-54); HEMOGLOBIN 13.9 g/dL (13.3-17.7); LYMPHOCYTES # (AUTO) 1.2 10^3/uL (1.0-4.0); LYMPHOCYTES % (AUTO) 13 % (12-44); MEAN CORPUSCULAR HEMOGLOBIN 29 pg (25-34); MEAN CORPUSCULAR HGB CONC 32 g/dL (32-36); MEAN CORPUSCULAR VOLUME 90 fL (80-99); MEAN PLATELET VOLUME 10.9 fL (9.0-12.2); MONOCYTES # (AUTO) 0.8 10^3/uL (0.0-1.0); MONOCYTES % (AUTO) 9 % (0-12); NEUTROPHILS # (AUTO) 6.6 10^3/uL (1.8-7.8); NEUTROPHILS % (AUTO) 75 % (42-75); PLATELET COUNT 201 10^3/uL (130-400); WHITE BLOOD COUNT 8.8 10^3/uL (4.3-11.0)
[2023-05-04 04:50] LABS: CALCIUM 8.4 MG/DL (8.5-10.1); CREATININE SERUM 1.21 MG/DL (0.60-1.30); POTASSIUM 3.6 MMOL/L (3.6-5.0)
[2023-05-04] MEDS: DOCUSATE SODIUM 100 MG CAPSULE PO SCH ×2 (08:11→19:26)
[2023-05-04] MEDS: SENNOSIDES 8.6 MG (SENOKOT) TAB PO SCH ×2 (08:11→19:27)
[2023-05-04] MEDS ORDERED: ARTIFICAL TEARS Ophth solution 0.4 ML UNIT DOSE OS PRN (08:30)
[2023-05-04] MEDS: TICAGRELOR 90 MG TABLET (BRILINTA) PO SCH ×2 (10:47→20:32)
[2023-05-04] MEDS: amLODIPine 5 MG TABLET PO SCH (10:47)
[2023-05-04] MEDS: APIXABAN 5 MG TABLET PO SCH ×2 (10:47→20:32)
[2023-05-04] MEDS: ASPIRIN 81 MG CHEWABLE TABLET PO SCH (10:47)
--- NOTE | 2023-05-04 13:32 | Progress Note - Hospitalist ---
Subjective HPI/CC On Admission Date Seen by Provider: May 04, 2023 Time Seen by Provider: 10:35 Minh Arnada is an 87 year old male with PMH HTN, CAD, AFib, CHF, history of cardiac arrest, GERD, who presented with chest pain. He reports pain in his chest which radiated to his shoulders. He also reports radiation to his right a rm. He denies nausea and vomiting. He denies shortness of breath. He has no other complaints. He was sent to the ER from Dr. aHskins's office for evaluation. Subjective/Events-last exam He is feeling better. He denies pain. He denies shortness of breath. He has been able to get up and move without issue. He has no complaints. Objective Exam Vital Signs Vital Signs Date Time Temp Pulse Resp B/P (MAP) Pulse Ox O2 Delivery O2 Flow Rate FiO2 05/04/23 12:31 108 05/04/23 11:50 36.1 17 125/87 (100) 95 Room Air 05/04/23 04:00 2.00 05/02/23 15:31 21 Capillary Refill : General Appearance: No Apparent Distress, WD/WN Respiratory: Lungs Clear, No Respiratory Distress Cardiovascular: Regular Rate, Rhythm, No Murmur Gastrointestinal: Normal Bowel Sounds, Soft Extremity: Normal Inspection, Pedal Edema Neurologic/Psychiatric: Alert, Normal Mood/Affect Skin: Normal Color, Warm/Dry Results/Procedures Lab Laboratory Tests 05/04/23 04:15 Patient resulted labs reviewed. Imaging: Reviewed Imaging Report Assessment/Plan Assessment and Plan Assess & Plan/Chief Complaint NSTEMI CAD HTN HLD AFib HFpEF History of cardiac arrest Troponin significantly elevated, stable EKG with ST depressions Cardiology following Left heart cath 05/03 with severe stenosis of distal RCA with stent placed, proximal RCA with balloon angioplasty, ostial LAD will need staged PCI or medical maangement ASA, Brilinta, Lipitor, Metoprolol Eliquis for stroke prevention Considering staged PCI while inpatient versus medical management of ostial LAD stenosis JESICA Improving IV fluids Hordeolum Warm compresses Artificial tears Diagnosis/Problems Diagnosis/Problems (1) NSTEMI (non-ST elevation myocardial infarction) Status: Acute (2) CAD (coronary artery disease) Status: Acute (3) HTN (hypertension) Status: Chronic (4) HLD (hyperlipidemia) Status: Chronic (5) (HFpEF) heart failure with preserved ejection fraction Status: Chronic Qualifiers: Heart failure chronicity: chronic Qualified Codes: I50.32 - Chronic diastolic (congestive) heart failure (6) History of cardiac arrest Status: Chronic (7) JESICA (acute kidney injury) Status: Acute (8) Hordeolum externum left lower eyelid Status: Acute QUINTON LIZAMA MD May 04, 2023 13:32
--- NOTE | 2023-05-04 16:11 | Cardiology Progress Note ---
Cardiology SOAP Progress Note Subjective: No chest pain. Objective: I&O/Vital Signs 05/04/23 05/04/23 05/04/23 05/04/23 07:00 07:47 08:00 11:50 Temp 36.4 36.1 Pulse 106 95 98 Resp 15 17 B/P (MAP) 139/93 (108) 125/87 (100) Pulse Ox 97 97 95 O2 Delivery Room Air Room Air Room Air 05/04/23 12:31 Pulse 108 05/04/23 00:00 Intake Total 100 ml Output Total 300 ml Balance -200 ml Weight (Pounds): 185 Weight (Ounces): 0.0 Weight (Calculated Kilograms): 83.492852 Constitutional: AAO x 3 Respiratory: lungs clear to auscultation Cardiovascular: S1 and S2 Extremities: No pedal edema Neurologic/Psychiatric: no motor/sensory deficits, alert, normal mood/affect, oriented x 3 Results/Procedures: Labs Laboratory Tests 05/04/23 04:15: White Blood Count 8.8, Red Blood Count 4.83, Hemoglobin 13.9, Hematocrit 43, Mean Corpuscular Volume 90, Mean Corpuscular Hemoglobin 29, Mean Corpuscular Hemoglobin Concent 32, Red Cell Distribution Width 16.8H, Platelet Count 201, Mean Platelet Volume 10.9, Immature Granulocyte % (Auto) 0, Neutrophils (%) (Auto) 75, Lymphocytes (%) (Auto) 13, Monocytes (%) (Auto) 9, Eosinophils (%) (Auto) 2, Basophils (%) (Auto) 1, Neutrophils # (Auto) 6.6, Lymphocytes # (Auto) 1.2, Monocytes # (Auto) 0.8, Eosinophils # (Auto) 0.2, Basophils # (Auto) 0.0, Immature Granulocyte # (Auto) 0.0, Sodium Level 138, Potassium Level 3.6, Chloride Level 107, Carbon Dioxide Level 21, Anion Gap 10, Blood Urea Nitrogen 16, Creatinine 1.21, Estimat Glomerular Filtration Rate 59, BUN/Creatinine Ratio 13, Glucose Level 88, Calcium Level 8.4L A/P: Assessment/Dx: Non-STEMI, CAD/PCI, Hypertension, Hyperlipidemia, Longstanding persistent atrial fibrillation, Chronic oral anticoagulation Plan: Non-STEMI, CAD/PCI, positive troponin with ST depressions on EKG. coronary angiography 05/03/2023 revealed severe distal RCA/ostial RPDA stenosis treated successfully with 1 drug-eluting stent. Moderate to severe ostial LAD stenosis with moderate stenosis of left circumflex artery ostium. Will defer to Dr. Haskins for PCI versus medical therapy. May require staged PCI. However patient does have severe diffuse distal disease which is not amenable to PCI. Hypertension, stable. Hyperlipidemia, no clinical issues. Longstanding persistent atrial fibrillation, Chronic oral anticoagulation. Juan NEVES MD May 04, 2023 16:11
[2023-05-05] VITALS: BP 149/112
[2023-05-05] MEDS: ENOXAPARIN 80 MG/0.8 ML SYRINGE SC SCH (01:57)
[2023-05-05 02:00] VITALS: BP 104/92
[2023-05-05 04:00] VITALS: BP 133/98
[2023-05-05 05:29] LABS: BASOPHILS % (AUTO) 1 % (0-10); EOSINOPHILS # (AUTO) 0.1 10^3/uL (0.0-0.3); EOSINOPHILS % (AUTO) 2 % (0-10); HEMATOCRIT 42 % (40-54); HEMOGLOBIN 13.7 g/dL (13.3-17.7); LYMPHOCYTES # (AUTO) 1.3 10^3/uL (1.0-4.0); LYMPHOCYTES % (AUTO) 16 % (12-44); MEAN CORPUSCULAR HEMOGLOBIN 29 pg (25-34); MEAN CORPUSCULAR HGB CONC 33 g/dL (32-36); MEAN CORPUSCULAR VOLUME 89 fL (80-99); MEAN PLATELET VOLUME 10.7 fL (9.0-12.2); MONOCYTES # (AUTO) 0.7 10^3/uL (0.0-1.0); MONOCYTES % (AUTO) 9 % (0-12); NEUTROPHILS % (AUTO) 73 % (42-75); PLATELET COUNT 192 10^3/uL (130-400); WHITE BLOOD COUNT 8.2 10^3/uL (4.3-11.0)
[2023-05-05 05:51] LABS: CALCIUM 8.5 MG/DL (8.5-10.1); CREATININE SERUM 1.34 MG/DL (0.60-1.30); POTASSIUM 3.5 MMOL/L (3.6-5.0)
[2023-05-05] MEDS: NS IV 1000 ML 1,000 ML IV SCH ×2 (07:43→17:33)
[2023-05-05 08:00] VITALS: BP 145/93
[2023-05-05] MEDS: amLODIPine 5 MG TABLET PO SCH (08:27)
[2023-05-05] MEDS: TICAGRELOR 90 MG TABLET (BRILINTA) PO SCH (08:27)
[2023-05-05] MEDS: ASPIRIN 81 MG CHEWABLE TABLET PO SCH (08:27)
[2023-05-05] MEDS: APIXABAN 5 MG TABLET PO SCH (08:27)
[2023-05-05] MEDS: SENNOSIDES 8.6 MG (SENOKOT) TAB PO SCH (09:19)
[2023-05-05] MEDS: DOCUSATE SODIUM 100 MG CAPSULE PO SCH (09:20)
[2023-05-05] MEDS ORDERED: FERR-84 PO (10:00)
[2023-05-05] MEDS ORDERED: DILT180C48 PO (10:00)
[2023-05-05] MEDS ORDERED: MULT-1018 PO (10:00)
[2023-05-05] MEDS ORDERED: NYST1000 PO (10:00)
[2023-05-05] MEDS ORDERED: SUCR1TAB PO (10:00)
--- NOTE | 2023-05-05 10:05 | Cardiology Progress Note ---
Subjective Date Seen by Provider: May 05, 2023 Time Seen by Provider: 10:03 Subjective/Events-last exam Patient was seen and evaluated, sitting comfortably in bed. No chest pain. Review of Systems General: No Chills, No Night Sweats, No Fatigue, No Malaise, No Appetite, No Other HEENT: No Head Aches, No Visual Changes, No Eye Pain, No Ear Pain, No Dysphasia, No Sinus Congestion, No Post Nasal Drip, No Sore Throat, No Other Pulmonary: No Dyspnea, No Cough, No Pleuritic Chest Pain, No Other Cardiovascular: No: Chest Pain, Palpitations, Orthopnea, Paroxysmal Noc. Dyspnea, Edema, Lt Headedness, Other Objective-Cardiology Exam Last Set of Vital Signs Vital Signs 05/02/23 05/04/23 15:31 04:00 O2 Flow Rate 2.00 FiO2 21 I&O Intake and Output 05/05/23 00:00 Intake Total 650 ml Output Total 925 ml Balance -275 ml Intake Oral 200 ml Tube Feeding 450 ml Output Urine Total 925 ml # Voids 3 # Bowel Movements 3 General: Alert, Oriented X3, Cooperative HEENT: Atraumatic, PERRLA Neck: Supple, No JVD, No Thyromegaly Lungs: Clear to Auscultation, Normal Air Movement Heart: Regular Rate, Normal S1, Normal S2, No Murmurs Abdomen: Normal Bowel Sounds, Soft, No Tenderness, No Hepatosplenomegaly, No Masses Extremities: No Clubbing, No Cyanosis, No Edema, Normal Pulses, No Tenderness/Swelling Skin: No Rashes, No Breakdown, No Significant Lesion Neuro: Normal Gait, Normal Speech, Strength at 5/5 X4 Ext, Normal Tone, Sensation Intact Psych/Mental Status: Mental Status NL, Mood NL Results Lab Laboratory Tests 05/05/23 05:05 A/P-Cardiology Admission Diagnosis Non-ST elevation myocardial infarction Coronary artery disease Atrial fibrillation Hypertension Hyperlipidemia Assessment/Plan Non-ST elevation myocardial infarction Cardiac catheterization carried out by Dr. Murphy with intervention on the distal right coronary artery. Patient has severe stenosis of the ostial LAD and ostial and mid circumflex artery, will arrange for intervention at tertiary care center, I contacted Dr. Foster and arrange for the procedure. Patient requested to be discharged and go to [place] [facility] as an outpatient tomorrow. Hypertension, continue on current medication monitor blood pressure Hyperlipidemia, monitor lipids Persistent chronic atrial fibrillation, rate controlled Maintained on oral anticoagulation IAN ERICKSON MD May 05, 2023 10:05
[2023-05-05] MEDS ORDERED: ASPI81TA64 PO (10:08)
[2023-05-05] MEDS ORDERED: AMLO-250 PO (10:08)
[2023-05-05] MEDS ORDERED: TICA90TA PO (10:08)
--- NOTE | 2023-05-05 10:27 | Discharge Inst-Simple/Standard ---
Discharge Inst-Standard Discharge Medications New, Converted or Re-Newed RX: Transmitted to Pharmacy Patient Instructions/Follow Up Plan of Care/Instructions/FU: Please continue to take your medications as written. please follow up with your primary care doctor to follow up this hospital stay. Activity as Tolerated: Yes Discharge Diet: Cardiac Diet Return to The Hospital For: Chest pain, shortness of breath, weakness, confusion, fever, if you feel you are getting worse. MAKAYLA CHUNG MD May 05, 2023 10:26
--- NOTE | 2023-05-05 10:33 | Discharge Summary ---
Diagnosis/Chief Complaint Date of Admission May 02, 2023 at 14:06 Date of Discharge Discharge Date: May 05, 2023 Admission Diagnosis NSTEMI Primary Care Barney Chu DO Discharge Diagnosis (1) NSTEMI (non-ST elevation myocardial infarction) Status: Acute (2) CAD (coronary artery disease) Status: Acute (3) HTN (hypertension) Status: Chronic (4) HLD (hyperlipidemia) Status: Chronic (5) (HFpEF) heart failure with preserved ejection fraction Status: Chronic (6) History of cardiac arrest Status: Chronic (7) JESICA (acute kidney injury) Status: Acute (8) Hordeolum externum left lower eyelid Status: Acute Discharge Summary Discharge Physical Exam Allergies: Coded Allergies: No Known Drug Allergies (Verified , 09/05/22) Vitals & I&Os Vital Signs Date Time Temp Pulse Resp B/P (MAP) Pulse Ox O2 Delivery O2 Flow Rate FiO2 05/05/23 08:00 36.4 99 16 145/93 (110) 96 Room Air 05/04/23 04:00 2.00 05/02/23 15:31 21 General Appearance: No Apparent Distress Respiratory: Lungs Clear, No Respiratory Distress Cardiovascular: Irregularly Irregular Gastrointestinal: Normal Bowel Sounds Neurologic/Psychiatric: Alert, Oriented x3 Hospital Course Patient was admitted to the hospital secondary to unstable angina with elevated troponin. He was taken to the [facility] and had PCI to the distal RCA. He was monitored overnight and started on dual antiplatelet therapy. Staged intervention was warranted and given his disease was felt high risk intervention was best. Transfer was initially arranged by Dr. Haskins but patient declined as he did not want to go in an ambulance. Dr. Cristian Haskins spoke with the patient over speaker phone and he is scheduled for tomorrow. He was discharged home to follow-up as scheduled for his procedure tomorrow. I called and updated Dr. Chu regarding this admission and plan. Patient was given strict return precautions. Labs (last 24 hrs) Laboratory Tests 05/05/23 05:05: White Blood Count 8.2, Red Blood Count 4.73, Hemoglobin 13.7, Hematocrit 42, Mean Corpuscular Volume 89, Mean Corpuscular Hemoglobin 29, Mean Corpuscular Hemoglobin Concent 33, Red Cell Distribution Width 16.8H, Platelet Count 192, Mean Platelet Volume 10.7, Immature Granulocyte % (Auto) 1, Neutrophils (%) (Auto) 73, Lymphocytes (%) (Auto) 16, Monocytes (%) (Auto) 9, Eosinophils (%) (Auto) 2, Basophils (%) (Auto) 1, Neutrophils # (Auto) 6.0, Lymphocytes # (Auto) 1.3, Monocytes # (Auto) 0.7, Eosinophils # (Auto) 0.1, Basophils # (Auto) 0.0, Immature Granulocyte # (Auto) 0.1, Sodium Level 136, Potassium Level 3.5L, Chloride Level 106, Carbon Dioxide Level 23, Anion Gap 7, Blood Urea Nitrogen 16, Creatinine 1.34H, Estimat Glomerular Filtration Rate 52, BUN/Creatinine Ratio 12, Glucose Level 94, Calcium Level 8.5 Patient resulted labs reviewed. Pending Labs Laboratory Tests 05/05/23 05:05: White Blood Count 8.2, Red Blood Count 4.73, Hemoglobin 13.7, Hematocrit 42, Mean Corpuscular Volume 89, Mean Corpuscular Hemoglobin 29, Mean Corpuscular Hemoglobin Concent 33, Red Cell Distribution Width 16.8, Platelet Count 192, Kayla n Platelet Volume 10.7, Immature Granulocyte % (Auto) 1, Neutrophils (%) (Auto) 73, Lymphocytes (%) (Auto) 16, Monocytes (%) (Auto) 9, Eosinophils (%) (Auto) 2, Basophils (%) (Auto) 1, Neutrophils # (Auto) 6.0, Lymphocytes # (Auto) 1.3, Monocytes # (Auto) 0.7, Eosinophils # (Auto) 0.1, Basophils # (Auto) 0.0, Immature Granulocyte # (Auto) 0.1, Sodium Level 136, Potassium Level 3.5, Chloride Level 106, Carbon Dioxide Level 23, Anion Gap 7, Blood Urea Nitrogen 16, Creatinine 1.34, Estimat Glomerular Filtration Rate 52, BUN/Creatinine Ratio 12, Glucose Level 94, Calcium Level 8.5 Imaging: Reviewed Imaging Report Discussion & Recommendations Discharge Planning: >30 minutes discharge planning Discharge Home Medications: Active Scripts Active Amlodipine Besylate 5 Mg Tablet 5 Mg PO DAILY@0900 Children's Aspirin (Aspirin) 81 Mg Tab.chew 81 Mg PO DAILY Brilinta (Ticagrelor) 90 Mg Tablet 90 Mg PO BID Reported Hair, Skin & Nails Caplet (Multivit-Min/Folic Acid/Biotin) 66.7 Mcg-1,000 Mcg Tablet 1 Each PO DAILY Iron (Ferrous Sulfate) 325 Mg (65 Mg Iron) Tablet 325 Mg PO DAILY Dilt-Xr (Diltiazem HCl) 180 Mg Cap.er.deg 360 Mg PO DAILY TAKES 2 (180MG) CAPS Nystatin 100,000 Unit/Ml Oral.susp 2 Ml PO QID 1 ML ON EACH SIDE OF THE CHEEK Sucralfate 1 Gram Tablet 1 Gm PO QIDACHS Clopidogrel (Clopidogrel Bisulfate) 75 Mg Tablet 75 Mg PO DAILY Metoprolol Succinate 50 Mg Tab.er.24h 50 Mg PO BID Pantoprazole Sodium 40 Mg Tablet.dr 40 Mg PO DAILY Potassium Chloride 10 Meq Capsule.er 10 Meq PO DAILY Eliquis (Apixaban) 5 Mg Tablet 5 Mg PO BID LAST FILLED 10-31-2022 #180/90 DAY SUPPLY Furosemide 40 Mg Tablet 40 Mg PO DAILY Fish Oil EC 1,200 mg Softgel (Sizerock-3/Dha/Epa/Fish Oil) 1 Each Capsule.dr 1 Each PO DAILY Instructions to patient/family Please see electronic discharge instructions given to patient. Problem Qualifiers (1) (HFpEF) heart failure with preserved ejection fraction: Heart failure chronicity: chronic Qualified Codes: I50.32 - Chronic diastolic (congestive) heart failure MAKAYLA CHUNG MD May 05, 2023 10:33
[2023-05-05 12:50] VITALS: BP 134/97
[2023-05-05 15:43] VITALS: BP 132/98
== END 2023-05-05 19:53 | disposition short-term general hospital (02) | DRG 247 ==
LOC: EDUNIT# 11:03 → ER 11:05 → 4TH 14:06 → CSD 15:53
PROVIDERS: ADMIT Internal Medicine; ATTEND Family Medicine
PROC: 4A023N7 Measurement of Cardiac Sampling and Pressure, Left Heart, Percutaneous Approach (ICD-10-PCS; principal; 2023-05-03)
PROC: 027034Z Dilation of Coronary Artery, One Artery with Drug-eluting Intraluminal Device, Percutaneous Approach (ICD-10-PCS; 2023-05-03)
PROC: 02703ZZ Dilation of Coronary Artery, One Artery, Percutaneous Approach (ICD-10-PCS; 2023-05-03)
PROC: B2111ZZ Fluoroscopy of Multiple Coronary Arteries using Low Osmolar Contrast (ICD-10-PCS; 2023-05-03)
DX: I21.4 Non-ST elevation (NSTEMI) myocardial infarction (principal); I48.11 Longstanding persistent atrial fibrillation; I50.32 Chronic diastolic (congestive) heart failure; N17.9 Acute kidney failure, unspecified; T82.855A Stenosis of coronary artery stent, initial encounter; I25.110 Atherosclerotic heart disease of native coronary artery with unstable angina pectoris; Z79.01 Long term (current) use of anticoagulants; Z79.899 Other long term (current) drug therapy; E78.00 Pure hypercholesterolemia, unspecified; K21.9 Gastro-esophageal reflux disease without esophagitis; I25.2 Old myocardial infarction; Z95.5 Presence of coronary angioplasty implant and graft; I11.0 Hypertensive heart disease with heart failure
CPT/HCPCS: 36415; 80048; 80053; 84484; 85025; 85027; 85347; 93005; 93458; 94760

== ENCOUNTER 2023-05-09 09:23 | Emergency (ER) | payer MEDICARE, OTHER ==
[~2023-05-09] VITALS: Ht 175 cm; Wt 83.0 kg
[~2023-05-09 09:23] MED LIST changes: +AMLO-250 PO; +DILT180C48 PO; +FERR-84 PO; +MULT-1018 PO; +NYST1000 PO; +SUCR1TAB PO; +TICA90TA PO
[2023-05-09 09:45] LABS: BASOPHILS # (AUTO) 0.1 10^3/uL (0.0-0.1); BASOPHILS % (AUTO) 1 % (0-10); EOSINOPHILS # (AUTO) 0.2 10^3/uL (0.0-0.3); EOSINOPHILS % (AUTO) 2 % (0-10); HEMATOCRIT 43 % (40-54); HEMOGLOBIN 13.6 g/dL (13.3-17.7); LYMPHOCYTES # (AUTO) 1.6 10^3/uL (1.0-4.0); LYMPHOCYTES % (AUTO) 14 % (12-44); MEAN CORPUSCULAR HEMOGLOBIN 29 pg (25-34); MEAN CORPUSCULAR HGB CONC 32 g/dL (32-36); MEAN CORPUSCULAR VOLUME 91 fL (80-99); MEAN PLATELET VOLUME 11.3 fL (9.0-12.2); MONOCYTES # (AUTO) 1.2 10^3/uL (0.0-1.0); MONOCYTES % (AUTO) 11 % (0-12); NEUTROPHILS # (AUTO) 8.2 10^3/uL (1.8-7.8); NEUTROPHILS % (AUTO) 72 % (42-75); PLATELET COUNT 247 10^3/uL (130-400); WHITE BLOOD COUNT 11.5 10^3/uL (4.3-11.0)
[2023-05-09 09:53] LABS: INR 1.3 (0.8-1.4); POTASSIUM 4.1 MMOL/L (3.6-5.0); PROTHROMBIN TIME PATIENT 16.7 SEC (12.2-14.7)
[2023-05-09 09:54] LABS: CALCIUM 9.1 MG/DL (8.5-10.1)
[2023-05-09 10:30] LABS: CREATININE SERUM 1.7 MG/DL (0.60-1.30)
--- NOTE | 2023-05-09 10:56 | Diagnostic Imaging Report ---
Indication: Swelling, pain in the right groin, postcardiac catheterization. There is no aneurysm or pseudoaneurysm. The common femoral artery and vein are patent and showed normal pulsatility. No hematoma. No findings of AV fistula. Impression: No findings of post catheterization vascular complication, normal targeted right groin arterial and venous Doppler. Dictated by: Dictated on workstation # [id number]
--- NOTE | 2023-05-09 11:06 | ED Integumentary General ---
"General Chief Complaint: Skin/Wound Problems Stated Complaint: POST OP CONCERNS STENTS | 05-03-2023 AND 05-06-2023 Nursing Triage Note: patient arrived with concern of surgical incision. states last night started bleeding more. patient states Marcial had 1 stent placed Sat. and [address] Murillo. brusising noted groin area. Allergies and Home Medications Allergies Coded Allergies: No Known Drug Allergies (Verified , 09/05/22) Patient Home Medication List Amlodipine Besylate (Amlodipine Besylate) 5 Mg Tablet, 5 MG PO DAILY@0900 Prescribed by: MAKAYLA CHUNG on 05/05/23 1008 Apixaban (Eliquis) 5 Mg Tablet, 5 MG PO BID, (Reported) Entered as Reported by: АННА HERNANDEZ on 03/24/22 1852 Aspirin (Children's Aspirin) 81 Mg Tab.chew, 81 MG PO DAILY Prescribed by: MAKAYLA CHUNG on 05/05/23 1008 Diltiazem HCl (Dilt-Xr) 180 Mg Cap.er.deg, 360 MG PO DAILY, (Reported) Entered as Reported by: ARNULFO LONDON on 05/05/23 1000 Ferrous Sulfate (Iron) 325 Mg (65 Mg Iron) Tablet, 325 MG PO DAILY, (Reported) Entered as Reported by: ARNULFO LONDON on 05/05/23 1000 Furosemide (Furosemide) 40 Mg Tablet, 40 MG PO DAILY, (Reported) Entered as Reported by: NADINE CHE on 07/14/18 0732 Metoprolol Succinate (Metoprolol Succinate) 50 Mg Tab.er.24h, 50 MG PO BID, (Reported) Entered as Reported by: ARNULFO LONDON on 09/06/22 1244 Multivit-Min/Folic Acid/Biotin (Hair, Skin & Nails Caplet) 66.7 Mcg-1,000 Mcg Tablet, 1 EACH PO DAILY, (Reported) Entered as Reported by: ARNULFO LONDON on 05/05/23 1000 Nystatin (Nystatin) 100,000 Unit/Ml Oral.susp, 2 ML PO QID, (Reported) Entered as Reported by: ARNULFO LONDON on 05/05/23 1000 [place]-3/Dha/Epa/Fish Oil (Fish Oil EC 1,200 mg Softgel) 1 Each Capsule.dr, 1 EACH PO DAILY, (Reported) Entered as Reported by: NADINE CHE on 07/14/18 0732 Pantoprazole Sodium (Pantoprazole Sodium) 40 Mg Tablet.dr, 40 MG PO DAILY, (Reported) Entered as Reported by: ARNULFO LONDON on 03/25/22 1341 Potassium Chloride (Potassium Chloride) 10 Meq Capsule.er, 10 MEQ PO DAILY, (Reported) Entered as Reported by: ARNULFO LONDON on 03/25/22 1341 Sucralfate (Sucralfate) 1 Gram Tablet, 1 GM PO QIDACHS, (Reported) Entered as Reported by: ARNULFO LONDON on 05/05/23 1000 Ticagrelor (Brilinta) 90 Mg Tablet, 90 MG PO BID Prescribed by: MAKAYLA CHUNG on 05/05/23 1008 Discontinued Medications Cefdinir (Cefdinir) 300 Mg Capsule, 300 MG PO BID Discontinued Reason: No Longer Taking Prescribed by: CONCHA OLIVER on 09/18/22 1550 Clopidogrel Bisulfate (Clopidogrel) 75 Mg Tablet, 75 MG PO DAILY, (Reported) Entered as Reported by: ARNULFO LONDON on 09/06/22 1244 Diltiazem HCl (Diltiazem 24Hr ER) 180 Mg Cap.er.24h, 360 MG PO DAILY Discontinued Reason: No Longer Taking Prescribed by: KAREN JJ on 09/19/22 1236 Fluconazole (Fluconazole) 100 Mg Tablet, 100 MG PO DAILY Discontinued Reason: No Longer Taking Prescribed by: CONCHA OLIVER on 09/18/22 1550 Hydrocodone Bit/Acetaminophen (HYDROcodone/APAP 7.5/325 TAB) 1 Ea Tablet, 1 EA PO Q6H PRN for PAIN-MODERATE (5-7) Discontinued Reason: No Longer Taking Prescribed by: KAREN JJ on 09/19/22 1236 Ondansetron (Ondansetron Odt) 4 Mg Tab.rapdis, 4 MG SL Q4H PRN for NAUSEA/VOMITING Discontinued Reason: No Longer Taking Prescribed by: CONCHA OLIVER on 09/18/22 1550 Past Vkofmux-Pktzvw-Utcsbr Hx Immunizations Up To Date Tetanus Booster (TDap): Less than 5yrs PED Vaccines UTD: No First/Initial COVID19 Vaccinat: 2020 Second COVID19 Vaccination Corey: 2020 Third COVID19 Vaccination Date: 2020 Seasonal Allergies Seasonal Allergies: No Past Medical History Surgery/Hospitalization HX: A-FIB, HTN,HIGH CHOLESTEROL, GERD, [place] HEART STENT Surgeries: Yes (cardiac stent) Cardiac, Coronary Stent Respiratory: No Cardiac: Yes (cardiac stent, congestive heart failure) Atrial Fibrillation, Coronary Artery Disease, High Cholesterol, Hypertension Neurological: No Genitourinary: Yes Kidney Stones Gastrointestinal: Yes Abdominal Hernia, Hemorrhoids Musculoskeletal: No Endocrine: No HEENT: Yes (NOSE BLEEDS) Loss of Vision: Denies Hearing Impairment: Hearing Aide Right, Hearing Aide Left Cancer: No Psychosocial: No Integumentary: No Blood Disorders: No Adverse Reaction/Blood Tranf: No Family Medical History Completed stroke 19 FATHER G8 BROTHER FH: cancer G8 BROTHER G8 SISTER No Pertinent Family Hx Physical Exam Vital Signs Vital Signs - First Documented 05/09/23 09:30 Temp 36.9 Pulse 62 Resp 20 B/P (MAP) 108/68 (81) Pulse Ox 95 O2 Delivery Room Air Capillary Refill : Less Than 3 Seconds Progress/Results/Core Measures Results/Orders Lab Results Laboratory Tests Test 05/09/23 09:35 Range/Units White Blood Count 11.5 H 4.3-11.0 10^3/uL Red Blood Count 4.68 4.30-5.52 10^6/uL Hemoglobin 13.6 13.3-17.7 g/dL Hematocrit 43 40-54 % Mean Corpuscular Volume 91 80-99 fL Mean Corpuscular Hemoglobin 29 25-34 pg Mean Corpuscular Hemoglobin Concent 32 32-36 g/dL Red Cell Distribution Width 17.4 H 10.0-14.5 % Platelet Count 247 130-400 10^3/uL Mean Platelet Volume 11.3 9.0-12.2 fL Immature Granulocyte % (Auto) 1 % Neutrophils (%) (Auto) 72 42-75 % Lymphocytes (%) (Auto) 14 12-44 % Monocytes (%) (Auto) 11 0-12 % Eosinophils (%) (Auto) 2 0-10 % Basophils (%) (Auto) 1 0-10 % Neutrophils # (Auto) 8.2 H 1.8-7.8 10^3/uL Lymphocytes # (Auto) 1.6 1.0-4.0 10^3/uL Monocytes # (Auto) 1.2 H 0.0-1.0 10^3/uL Eosinophils # (Auto) 0.2 0.0-0.3 10^3/uL Basophils # (Auto) 0.1 0.0-0.1 10^3/uL Immature Granulocyte # (Auto) 0.1 0.0-0.1 10^3/uL Prothrombin Time 16.7 H 12.2-14.7 SEC INR Comment 1.3 0.8-1.4 Activated Partial Thromboplast Time 39 H 24-35 SEC Sodium Level 140 135-145 MMOL/L Potassium Level 4.1 3.6-5.0 MMOL/L Chloride Level 108 H 98-107 MMOL/L Carbon Dioxide Level 20 L 21-32 MMOL/L Anion Gap 12 5-14 MMOL/L Blood Urea Nitrogen 32 H 7-18 MG/DL Creatinine 1.70 H 0.60-1.30 MG/DL Estimat Glomerular Filtration Rate 39 BUN/Creatinine Ratio 19 Glucose Level 111 H 70-105 MG/DL Calcium Level 9.1 8.5-10.1 MG/DL My Orders Orders - PEARL ROCHA DO Ed Iv/Invasive Line Start (05/09/23 09:40) Monitor-Rhythm Ecg Trace Only (05/09/23 09:40) Basic Metabolic Panel (05/09/23 09:40) Cbc With Automated Diff (05/09/23 09:40) Protime With Inr (05/09/23 09:40) Partial Thromboplastin Time (05/09/23 09:40) Us Right Low Ext [id number] (05/09/23 09:40) Vital Signs/I&O 05/09/23 09:30 Temp 36.9 Pulse 62 Resp 20 B/P (MAP) 108/68 (81) Pulse Ox 95 O2 Delivery Room Air Blood Pressure Mean: 81 Diagnostic Imaging Comments ULTRASOUND--PER RADIOLOGIST REPORT AT 1105 There is no aneurysm or pseudoaneurysm. The common femoral artery and vein are patent and showed normal pulsatility. No hematoma. No findings of AV fistula. Impression: No findings of post catheterization vascular complication, normal targeted right groin arterial and venous Doppler. Reviewed: Reviewed by Me Departure Impression Primary Impression: POST CARDIAC CATH BLEEDNG Additional Impression: ANTICOAGULATION THERAPY Disposition: 01 HOME, SELF-CARE Condition: Stable Departure-Patient Inst. Decision time for Depature: 11:07 Referrals: KHUSHBU RAMON DO (PCP/Family) Primary Care Physician Patient Instructions: POST OP BLEEDING Add. Discharge Instructions: CONTINUE ALL POST OP INSTRUCTIONS AND MEDICATIONS ICE TO AREA AT 20 MINUTE INTERVALS INCREASE YOUR FLUID INTAKE FOLLOW UP WITH YOUR FIELD [employer] TARGETING TECHNICIAN NEXT WEEK FOR FURTHER CARE RETURN TO ER IF SYMPTOMS WORSEN All discharge instructions reviewed with patient and/or family. Voiced understanding. PEARL ROCHA DO May 09, 2023 11:06"
[2023-05-09 11:17] VITALS: BP 102/75
== END 2023-05-09 11:26 | disposition home or self-care (01) ==
LOC: EDUNIT# 09:23 → ER 09:25
DX: I97.610 Postprocedural hemorrhage of a circulatory system organ or structure following a cardiac catheterization (principal); I25.10 Atherosclerotic heart disease of native coronary artery without angina pectoris; I48.91 Unspecified atrial fibrillation; I25.2 Old myocardial infarction; Z95.5 Presence of coronary angioplasty implant and graft; Z28.310 Unvaccinated for COVID-19; Z79.01 Long term (current) use of anticoagulants
CPT/HCPCS: 36415; 80048; 85025; 85610; 85730; 93041; 93926

== ENCOUNTER 2023-08-05 03:04 | Inpatient (IN) | payer MEDICARE, OTHER ==
[~2023-08-05] VITALS: Ht 175 cm; Wt 78.6 kg
--- NOTE | 2023-08-05 03:21 | ED Cardiac General ---
History of Present Illness General Stated Complaint: CP,NOSE BLEED OFF & ON Source: patient Exam Limitations: no limitations History of Present Illness Date Seen by Provider: Aug 05, 2023 Time Seen by Provider: 03:21 Initial Comments Patient is an 87-year-old male who presents to the emergency department tonight with a chief complaint of sharp midsternal chest pain that also seem to be in his neck onset about 130 this morning. He had not gone to bed yet. He states that he thinks it lasted about 10 or 15 minutes. It recurred again at 2 or 230. He denies associated symptoms of nausea, shortness of breath or sweating. He had stents placed in April of this year. He is currently on Eliquis and Brilinta. He states he is compliant with his daily medications. He recently completed a course of antibiotics from his primary care provider for cough, congestion. He has no ongoing shortness of breath or cough. No unusual swelling in his legs. He is pain-free at this time. Denies problems with bowel or bladder. Timing/Duration: 1-3 hours Severity: moderate Location: central Activities at Onset: rest Prior CP/Workup: cardiac cath, heart attack NTG SL FUR STYLIST: No ASA po FUR STYLIST: No Associated Systoms: Chest Pain Allergies and Home Medications Allergies Coded Allergies: No Known Drug Allergies (Verified , 09/05/22) Patient Home Medication List Home Medication List Reviewed: Yes Acetaminophen (Tylenol Extra Strength) 500 Mg Tablet, 500-1,000 MG PO Q8H PRN for PAIN-MILD (1-4), (Reported) Entered as Reported by: ARNULFO LONDON on 08/05/231613 Last Action: Reviewed Amlodipine Besylate (Amlodipine Besylate) 5 Mg Tablet, 5 MG PO DAILY, (Reported) Entered as Reported by: ARNULFO LONDON on 08/05/231613 Last Action: Reviewed Apixaban (Eliquis) 5 Mg Tablet, 5 MG PO BID, (Reported) Entered as Reported by: АННА HERNANDEZ on 03/24/22 185 Last Action: Reviewed Aspirin (Aspirin) 81 Mg Tab.chew, 81 MG PO HS, (Reported) Entered as Reported by: ARNULFO LONDON on 08/05/231613 Last Action: Reviewed Atorvastatin Calcium (Atorvastatin Calcium) 40 Mg Tablet, 40 MG PO DAILY, (Reported) Entered as Reported by: ARNULFO LONDON on 08/05/23 1614 Last Action: Reviewed Diltiazem HCl (Dilt-Xr) 180 Mg Cap.er.deg, 360 MG PO DAILY, (Reported) Entered as Reported by: ARNULFO LONDON on 05/05/23 1000 Last Action: Reviewed Furosemide (Furosemide) 40 Mg Tablet, 40 MG PO DAILY, (Reported) Entered as Reported by: NADINE CHE on 07/14/18 0732 Last Action: Reviewed Gabapentin (Neurontin) 300 Mg Capsule, 300 MG PO BID, (Reported) Entered as Reported by: ARNULFO LONDON on 08/05/23 1614 Last Action: Reviewed Metoprolol Succinate (Metoprolol Succinate) 50 Mg Tab.er.24h, 50 MG PO DAILY, (Reported) Entered as Reported by: ARNULFO LONDON on 09/06/22 1244 Last Action: Reviewed Pantoprazole Sodium (Pantoprazole Sodium) 40 Mg Tablet.dr, 40 MG PO DAILY, (Reported) Entered as Reported by: ARNULFO LONDON on 03/25/22 1341 Last Action: Reviewed Potassium Chloride (Potassium Chloride) 10 Meq Capsule.er, 10 MEQ PO HS, (Reported) Entered as Reported by: ARNULFO LONDON on 03/25/22 1341 Last Action: Reviewed Ticagrelor (Brilinta) 90 Mg Tablet, 90 MG PO BID, (Reported) Entered as Reported by: ARNULFO LONDON on 08/05/23 161 Last Action: Reviewed Discontinued Medications Amlodipine Besylate (Amlodipine Besylate) 5 Mg Tablet, 5 MG PO DAILY@0900 Discontinued Reason: No Longer Taking Prescribed by: MAKAYLA CHUNG on 05/05/23 1008 Last Action: Discontinued Aspirin (Children's Aspirin) 81 Mg Tab.chew, 81 MG PO DAILY Discontinued Reason: Duplicate Order Prescribed by: MAKAYLA CHUNG on 05/05/23 1008 Last Action: Discontinued Ferrous Sulfate (Iron) 325 Mg (65 Mg Iron) Tablet, 325 MG PO DAILY, (Reported) Discontinued Reason: No Longer Taking Entered as Reported by: ARNULFO LONDON on 05/05/23 1000 Last Action: Discontinued Multivit-Min/Folic Acid/Biotin (Hair, Skin & Nails Caplet) 66.7 Mcg-1,000 Mcg Tablet, 1 EACH PO DAILY, (Reported) Discontinued Reason: Referral/FU Appt-Addtl Entered as Reported by: ARNULFO LONDON on 05/05/23999 Last Action: Discontinued Nystatin (Nystatin) 100,000 Unit/Ml Oral.susp, 2 ML PO QID, (Reported) Discontinued Reason: No Longer Taking Entered as Reported by: ARNULFO LONDON on 05/05/23 1000 Last Action: Discontinued [place]-3/Dha/Epa/Fish Oil (Fish Oil EC 1,200 mg Softgel) 1 Each Capsule.dr, 1 EACH PO DAILY, (Reported) Discontinued Reason: No Longer Taking Entered as Reported by: NADINE CHE on 07/14/18 0732 Last Action: Discontinued Sucralfate (Sucralfate) 1 Gram Tablet, 1 GM PO QIDACHS, (Reported) Discontinued Reason: No Longer Taking Entered as Reported by: ARNULFO LONDON on 05/05/23999 Last Action: Discontinued Ticagrelor (Brilinta) 90 Mg Tablet, 90 MG PO BID Discontinued Reason: Duplicate Order Prescribed by: MAKAYLA CHUNG on 05/05/23 1008 Last Action: Discontinued Review of Systems Review of Systems Constitutional: see HPI EENTM: No Symptoms Reported, Eye Pain Cardiovascular: Chest Pain Gastrointestinal: No Symptoms Reported Genitourinary: No Symptoms Reported Musculoskeletal: no symptoms reported Skin: no symptoms reported Psychiatric/Neurological: No Symptoms Reported Past Efgukvv-Wcqytd-Hwzmgo Hx Immunizations Up To Date Tetanus Booster (TDap): Less than 5yrs PED Vaccines UTD: No First/Initial COVID19 Vaccinat: 2020 Second COVID19 Vaccination Corey: 2020 Third COVID19 Vaccination Date: 2020 Seasonal Allergies Seasonal Allergies: No Past Medical History Surgery/Hospitalization HX: A-FIB, HTN,HIGH CHOLESTEROL, GERD, [place] HEART STENT Surgeries: Yes (CARDIAC STENTS X 3) Cardiac, Coronary Stent Respiratory: No Cardiac: Yes (CARDIAC STENTS X 3, congestive heart failure) Atrial Fibrillation, Coronary Artery Disease, High Cholesterol, Hypertension Neurological: No Genitourinary: Yes Kidney Stones Gastrointestinal: Yes Abdominal Hernia, Hemorrhoids Musculoskeletal: No Endocrine: No HEENT: Yes (NOSE BLEEDS) Loss of Vision: Denies Hearing Impairment: Hearing Aide Right, Hearing Aide Left Cancer: No Psychosocial: No Integumentary: No Blood Disorders: No Adverse Reaction/Blood Tranf: No Family Medical History Completed stroke 19 FATHER G8 BROTHER FH: cancer G8 BROTHER G8 SISTER No Pertinent Family Hx Physical Exam Vital Signs Vital Signs - First Documented 08/05/23 03:09 Temp 36.9 Pulse 114 Resp 20 B/P (MAP) 124/79 (94) Pulse Ox 97 O2 Delivery Room Air Capillary Refill : Height, Weight, BMI Height: 5'8.00" Weight: 185lbs. 0.0oz. 83.090896ws; 27.00 BMI Method:Stated General Appearance: No Apparent Distress, WD/WN HEENT: PERRL/EOMI Neck: Normal Inspection Respiratory: Lungs Clear, Normal Breath Sounds, No Accessory Muscle Use, No Respiratory Distress Cardiovascular: Irregularly Irregular, Tachycardia (112 HR) Gastrointestinal: Non Tender, Soft Extremity: Normal Inspection, No Pedal Edema Neurologic/Psychiatric: Alert, Oriented x3, No Motor/Sensory Deficits, Normal Mood/Affect Skin: Warm/Dry, Pallor Progress/Results/Core Measures Results/Orders Lab Results Laboratory Tests Test 08/05/23 03:20 Range/Units White Blood Count 10.3 4.3-11.0 10^3/uL Red Blood Count 3.53 L 4.30-5.52 10^6/uL Hemoglobin 9.7 L 13.3-17.7 g/dL Hematocrit 32 L 40-54 % Mean Corpuscular Volume 91 80-99 fL Mean Corpuscular Hemoglobin 28 25-34 pg Mean Corpuscular Hemoglobin Concent 30 L 32-36 g/dL Red Cell Distribution Width 16.1 H 10.0-14.5 % Platelet Count 296 130-400 10^3/uL Mean Platelet Volume 10.0 9.0-12.2 fL Immature Granulocyte % (Auto) 2 % Neutrophils (%) (Auto) 79 H 42-75 % Lymphocytes (%) (Auto) 11 L 12-44 % Monocytes (%) (Auto) 8 0-12 % Eosinophils (%) (Auto) 0 0-10 % Basophils (%) (Auto) 0 0-10 % Neutrophils # (Auto) 8.1 H 1.8-7.8 10^3/uL Lymphocytes # (Auto) 1.2 1.0-4.0 10^3/uL Monocytes # (Auto) 0.8 0.0-1.0 10^3/uL Eosinophils # (Auto) 0.0 0.0-0.3 10^3/uL Basophils # (Auto) 0.0 0.0-0.1 10^3/uL Immature Granulocyte # (Auto) 0.2 H 0.0-0.1 10^3/uL Prothrombin Time 14.8 H 12.2-14.7 SEC INR Comment 1.1 0.8-1.4 Activated Partial Thromboplast Time 38 H 24-35 SEC Sodium Level 139 135-145 MMOL/L Potassium Level 3.6 3.6-5.0 MMOL/L Chloride Level 105 98-107 MMOL/L Carbon Dioxide Level 23 21-32 MMOL/L Anion Gap 11 5-14 MMOL/L Blood Urea Nitrogen 31 H 7-18 MG/DL Creatinine 1.69 H 0.60-1.30 MG/DL Estimat Glomerular Filtration Rate 39 BUN/Creatinine Ratio 18 Glucose Level 101 70-105 MG/DL Calcium Level 8.8 8.5-10.1 MG/DL Corrected Calcium 8.9 8.5-10.1 MG/DL Magnesium Level 2.4 1.6-2.4 MG/DL Total Bilirubin 0.4 0.1-1.0 MG/DL Aspartate Amino Transf (AST/SGOT) 33 5-34 U/L Alanine Aminotransferase (ALT/SGPT) 33 0-55 U/L Alkaline Phosphatase 77 40-136 U/L Troponin I 1.066 *H <0.028 NG/ML Total Protein 6.7 6.4-8.2 GM/DL Albumin 3.9 3.2-4.5 GM/DL My Orders Orders - SERENE SCHULTZ MD Cbc And Automated Diff (08/05/23 03:20) Magnesium (08/05/23 03:20) Chest 1 View, Ap/Pa Only (08/05/23 03:20) Ekg Tracing (08/05/23 03:20) Comprehensive Metabolic Panel (08/05/23 03:20) Protime With Inr (08/05/23 03:20) Partial Thromboplastin Time (08/05/23 03:20) O2 (08/05/23 03:20) Monitor-Rhythm Ecg Trace Only (08/05/23 03:20) Lipid Panel (08/06/23 06:00) Ed Iv/Invasive Line Start (08/05/23 03:20) Troponin I [place] (08/05/23 03:20) Diltiazem Injection (Diltiazem Injection (08/05/23 04:15) Aspirin Chewable Tablet (Aspirin Chewabl (08/05/23 05:00) Medications Given in ED Current Medications Medications Dose Ordered Sig/Ivanna Route Start Time Stop Time Status Last Admin Dose Admin Diltiazem HCl 10 mg ONCE ONCE IVP 08/05/23 04:15 08/05/23 04:16 DC 08/05/23 04:22 10 MG Vital Signs/I&O 08/05/23 08/05/23 03:09 04:22 Temp 36.9 Pulse 114 112 Resp 20 B/P (MAP) 124/79 (94) 151/97 Pulse Ox 97 O2 Delivery Room Air Progress Progress Note : Time: 05:00 Progress Note Patient seen and evaluated by me. Evaluation today includes history and physical exam with "chest pain protocol" to include CBC, Chem-12, magnesium, serum troponin, EKG, coags, single view chest x-ray. Pertinent physical exam findings well-developed well-nourished 87-year-old male in no acute distress. His heart is irregularly irregular, tachycardic at 1 10-1 12. Lungs are clear bilaterally. Distal pulses are 2+ radial. His abdomen is soft. No focal neurologic deficits are appreciated. He is afebrile. Normal oxygen saturations, normal blood pressure. Differential diagnosis includes acute coronary syndrome, A-fib with RVR, acute exacerbation of COPD, congestive failure. Patient's labs, EKG and chest x-ray independently reviewed and interpreted by me. His CBC shows a white count of 10.3 with low hemoglobin at 9.7 hematocrit of 32, platelet count of 296. He has 79% segmented neutrophils. His Chem-12 is pertinent for an elevated BUN and creatinine of 31 and 1.69 respectively. Normal electrolytes, normal liver functions. His mag is 2.4. Troponin came back elevated at 1.066. Coags elevated secondary to chronic anticoagulation with a PT of 14.8 INR of 1.1, PTT of 38. Patient's EKG is A-fib/flutter with rapid ventricular response. His chest x-ray is unremarkable. Patient is treated in the emergency department with 324 mg of aspirin. He remains pain- free throughout his stay in the emergency department. No concerning findings for pneumonia no ongoing clinical concerns for congestive failure as his chest x-ray is clear and he is not hypoxic or demonstrating any increased work of breathing. He has had fairly recent stents in April of this year. Concern for in-stent restenosis. Case was discussed with cardiology on-call who will evaluate the patient as well as with Dr. Mustafa on for the hospitalist service. Dr. West requested that we go ahead and try and rate control him therefore Cardizem bolus and drip were ordered. Patient and his family member are advised of the results of his testing and need for admission. They are agreeable. Initial ECG Impression Date: Aug 05, 2023 Initial ECG Impression Time: 03:15 Initial ECG Rate: 114 Initial ECG Rhythm: A Fib/Flutter Initial ECG Impression: Atrial Fibrillation w/RVR Diagnostic Imaging Diagonstic Imaging: Xray Plain Films/CT/US/NM/MRI: chest Comments Single view chest x-ray independently reviewed and interpreted by me, no evidence of infiltrate or effusion Critical Care Note Critical Care Start Time: 03:21 Stop Time: 05:30 Total Time (minutes) 40 minutes critical care time in the evaluation and management of this patient with history of recent chest pain and A-fib with RVR. Time includes initial evaluation, review and interpretation of labs, EKG and chest x-ray. Medication management with Cardizem bolus and drip, review of prior medical records, discussion with cardiology, discussion with admitting provider, discussion with family. Departure Communication (Admissions) Time/Spoke to Admitting Phy: 05:[address] Mustafa ([facility] practice) Time/Spoke to Consulting Phy: 05:[address] West (cardiology) Impression Primary Impression: Atrial flutter with rapid ventricular response Additional Impression: NSTEMI (non-ST elevation myocardial infarction) Disposition: ADMITTED INPATIENT Condition: Critical Admissions Decision to Admit Reason: Admit from ER (General) Decision to Admit/Date: Aug 05, 2023 Time/Decision to Admit Time: 04:53 Departure-Patient Inst. Referrals: KHUSHBU RAMON DO (PCP/Family) Primary Care Physician Copy Copies To 1: KHUSHBU RAMON KATHRYN M MD Aug 05, 2023 03:21
[2023-08-05 03:33] LABS: BASOPHILS % (AUTO) 0 % (0-10); EOSINOPHILS % (AUTO) 0 % (0-10); HEMATOCRIT 32 % (40-54); HEMOGLOBIN 9.7 g/dL (13.3-17.7); LYMPHOCYTES # (AUTO) 1.2 10^3/uL (1.0-4.0); LYMPHOCYTES % (AUTO) 11 % (12-44); MEAN CORPUSCULAR HEMOGLOBIN 28 pg (25-34); MEAN CORPUSCULAR HGB CONC 30 g/dL (32-36); MEAN CORPUSCULAR VOLUME 91 fL (80-99); MONOCYTES # (AUTO) 0.8 10^3/uL (0.0-1.0); MONOCYTES % (AUTO) 8 % (0-12); NEUTROPHILS # (AUTO) 8.1 10^3/uL (1.8-7.8); NEUTROPHILS % (AUTO) 79 % (42-75); PLATELET COUNT 296 10^3/uL (130-400); WHITE BLOOD COUNT 10.3 10^3/uL (4.3-11.0)
[2023-08-05 03:41] LABS: ALBUMIN 3.9 GM/DL (3.2-4.5)
[2023-08-05 03:42] LABS: POTASSIUM 3.6 MMOL/L (3.6-5.0)
[2023-08-05 03:43] LABS: CALCIUM 8.8 MG/DL (8.5-10.1)
[2023-08-05 03:44] LABS: TOTAL PROTEIN 6.7 GM/DL (6.4-8.2)
[2023-08-05 03:46] LABS: BILIRUBIN,TOTAL 0.4 MG/DL (0.1-1.0); INR 1.1 (0.8-1.4); PROTHROMBIN TIME PATIENT 14.8 SEC (12.2-14.7)
[2023-08-05 03:48] LABS: CREATININE SERUM 1.69 MG/DL (0.60-1.30)
[2023-08-05 03:50] LABS: MAGNESIUM 2.4 MG/DL (1.6-2.4)
[2023-08-05] MEDS ORDERED: dilTIAZem INJ 25 MG/5 ML VIAL IVP ONE (04:15)
[2023-08-05] MEDS ORDERED: ASPIRIN 81 MG CHEWABLE TABLET PO ONE (05:00)
--- NOTE | 2023-08-05 05:32 | History & Physical ---
History of Present Illness HPI/Chief Complaint Chief complaint: Chest pain with atrial flutter with RVR and elevated troponin HPI: This is an 87-year-old male with known history of atrial fibrillation and CAD who presented to the ER with chest pain and found to have elevated troponin with atrial fibrillation with RVR. Cardiology has been consulted. Diltiazem drip initiated along with aspirin and continuation of Brilinta and Eliquis. Currently he is without chest pain. Source: patient Exam Limitations: no limitations Date Seen 08/05/23 Time Seen by a Provider: 11:00 Attending Physician Barney Chu DO PCP Admitting Physician: Attending Physician: Referring Physician Date of Admission Home Medications & Allergies Home Medications Reviewed patient Home Medication Reconciliation performed by pharmacy medication reconciliations electronic systems technician and/or nursing. Patients Allergies have been reviewed. Allergies Allergies Coded Allergies No Known Drug Allergies (Sggrowhy78/22/22) Past Skipxom-Eyfsis-Hnkfca Hx Past Med/Social Hx: Reviewed Nursing Past Med/Soc Hx, Reviewed and Corrections made Patient Social History Marrital Status: Employed/Student: retired Alcohol Use: Occasionally Uses Alcohol Beverage of Choice: Beer Smoking Status: Never a Smoker 2nd Hand Smoke Exposure: No Recent Hopitalizations: No Immunizations Up To Date Tetanus Booster (TDap): Less than 5yrs Pediatric: No Seasonal Allergies Seasonal Allergies: No Past Medical History Surgeries: Cardiac, Coronary Stent Cardiac: Atrial Fibrillation, Coronary Artery Disease, High Cholesterol, Hypertension Genitourinary: Kidney Stones Gastrointestinal: Abdominal Hernia, Hemorrhoids Loss of Vision: Denies Hearing Impairment: Hearing Aide Right, Hearing Aide Left History of Blood Disorders: No Adverse Reaction to Blood Martínez: No Family History Completed stroke 21 FATHER G8 BROTHER FH: cancer G8 BROTHER G8 SISTER No Pertinent Family Hx Review of Systems Constitutional: see HPI Cardiovascular: chest pain Physical Exam Physical Exam Vital Signs Vital Signs - First Documented 08/05/23 03:09 Temp 36.9 Pulse 114 Resp 20 B/P (MAP) 124/79 (94) Pulse Ox 97 O2 Delivery Room Air Capillary Refill : Less Than 3 Seconds Height, Weight, BMI Height: 5'8.00" Weight: 185lbs. 0.0oz. 83.926354up; 25.00 BMI Method:Stated General Appearance: No Apparent Distress, WD/WN, Chronically ill HEENT: PERRL/EOMI Neck: Normal Inspection Respiratory: Lungs Clear, Normal Breath Sounds, No Accessory Muscle Use, No Respiratory Distress Cardiovascular: Irregularly Irregular, Tachycardia (112 HR) Gastrointestinal: Non Tender, Soft Extremity: Normal Inspection, No Pedal Edema Neurologic/Psychiatric: Alert, Oriented x3, No Motor/Sensory Deficits, Normal Mood/Affect Skin: Warm/Dry, Pallor Results Results/Procedures Labs Laboratory Tests 08/05/23 03:20 Patient resulted labs reviewed. Assessment/Plan Admission Diagnosis Assessment: Atrial flutter with RVR placed on diltiazem drip Chest pain with elevated troponin and known history of CAD with stents Hypertension Hyperlipidemia Plan: ICU admission Cardiology consult Marquise Longoria Aspirin Statin Admission Status: Inpatient Order (span 2 midnights) Reason for Inpatient Admission: NSTEMI with atrial flutter RVR Clinical Quality Measures AMI/AHF: ASA po Prior to arrival: KAREN Davenport DO Aug 05, 2023 05:32
[2023-08-05] MEDS ORDERED: dilTIAZem DRIP PRE-MIX 125 ML IV SCH (05:45)
--- NOTE | 2023-08-05 06:44 | Diagnostic Imaging Report ---
EXAM: CHEST 1 VIEW, AP/PA ONLY INDICATION: Chest pain. COMPARISON: 09/18/2022. FINDINGS: Normal heart size and central pulmonary vascularity. No focal pulmonary opacity. No pleural effusion or pneumothorax. No acute osseous findings. Implantable loop recorder. No significant change. IMPRESSION: No acute cardiopulmonary findings. Dictated by: Dictated on workstation # [id number]
[2023-08-05] MEDS ORDERED: morphine INJ 10 MG/ML 1ML (SYR OR VIAL) IVP ONE (07:30)
[2023-08-05] MEDS ORDERED: guaiFENesin 600 MG TABLET PO ONE (12:45)
[2023-08-05] MEDS ORDERED: NS IV 500 ML 500 ML IV PRN (14:45)
[2023-08-05] MEDS ORDERED: ONDANSETRON 4 MG ORAL DISSOLVE TABLET PO PRN (14:45)
[2023-08-05] MEDS ORDERED: LACTULOSE SYRUP 10GM/15ML 30ML UDC PO PRN (14:45)
[2023-08-05] MEDS ORDERED: diphenhydrAMINE INJ 50 MG/ML VIAL IVP PRN (14:45)
[2023-08-05] MEDS ORDERED: ACETAMINOPHEN 325 MG TABLET PO PRN (14:45)
[2023-08-05] MEDS ORDERED: ANTACID SUSPENSION 30 ML UDC PO PRN (14:45)
[2023-08-05] MEDS ORDERED: ONDANSETRON INJECTION 4 MG/2 ML (SDV) IV PRN (14:45)
[2023-08-05] MEDS ORDERED: MILK OF MAGNESIA 400 MG/5 ML 30 ML UDC PO PRN (14:45)
[2023-08-05] MEDS ORDERED: diphenhydrAMINE 25 MG TABLET PO PRN (14:45)
[2023-08-05] MEDS ORDERED: CALCIUM CARBONATE 500 MG CHEW TABLET PO PRN (14:45)
[2023-08-05] MEDS ORDERED: MELATONIN 3 MG TABLET PO PRN (14:45)
[2023-08-05] MEDS ORDERED: BISACODYL 10 MG SUPPOSITORY PR PRN (14:45)
[2023-08-05] MEDS ORDERED: GABAPENTIN 300 MG CAPSULE PO NR (15:15)
[2023-08-05] MEDS: dilTIAZem DRIP PRE-MIX 125 ML IV SCH (15:34)
--- NOTE | 2023-08-05 16:04 | History & Physicial-Cardiolgy ---
HPI-Cardiology Cardiology Consultation: Date of Consultation 08/05/23 Date of Admission 08/05/2023 Attending Physician Barney Chu DO Admitting Physician Admitting Physician: Marilynn Mustafa DO Attending Physician: Marilynn Mustafa DO Consulting Physician NADIRA BURKS MD HPI: Time Seen by a Provider: 15:59 Chief Complaint: Presented with complaints of 2 episodes of retrosternal chest pain, both lasted approximately 15 to 20 minutes. Patient presented with above complaints. The pain went away by itself. Patient is presently pain-free. Patient has extensive history of coronary artery disease. He had PTCA of the distal right coronary artery in April of this year, but then was transferred to [facility] to undergo intervention on ostial LAD. Results for the intervention of the LAD are not available at this time. Review of Systems-Cardiology Review of Systems Constitutional: no symptoms reported Eyes: no symptoms reported Ears/Nose/Throat: no symptoms reported Respiratory: no symptoms reported Cardiovascular: chest pain Gastrointestinal: no symptoms reported Genitourinary: no symptoms reported Musculoskeletal: no symptoms reported Skin: change in color, rash on exposed areas Psychiatric/Neurological: no symptoms reported Hematologic: no symptoms reported GTX-Zmefkk-Yehyzp Hx Patient Social History 2nd Hand Smoke Exposure: No Immunizations Up To Date Tetanus Booster (TDap): Less than 5yrs Past Medical History PMH As described under Assessment. Family Medical History Family Medical History: He does not report fam h/o early CAD or SCD Family History: Completed stroke 19 FATHER G8 BROTHER FH: cancer G8 BROTHER G8 SISTER Allergies and Home Medications Allergies Coded Allergies: No Known Drug Allergies (Verified , 09/05/22) Patient Home Medication List Home Medication List Reviewed: Yes Amlodipine Besylate (Amlodipine Besylate) 5 Mg Tablet, 5 MG PO DAILY@0900 Prescribed by: MAKAYLA CHUNG on 05/05/23 1008 Apixaban (Eliquis) 5 Mg Tablet, 5 MG PO BID, (Reported) Entered as Reported by: АННА HERNANDEZ on 03/24/22 185 Aspirin (Children's Aspirin) 81 Mg Tab.chew, 81 MG PO DAILY Prescribed by: MAKAYLA CHUNG on 05/05/23 1008 Diltiazem HCl (Dilt-Xr) 180 Mg Cap.er.deg, 360 MG PO DAILY, (Reported) Entered as Reported by: ARNULFO LONDON on 05/05/23 1000 Ferrous Sulfate (Iron) 325 Mg (65 Mg Iron) Tablet, 325 MG PO DAILY, (Reported) Entered as Reported by: ARNULFO LONDON on 05/05/23 1000 Furosemide (Furosemide) 40 Mg Tablet, 40 MG PO DAILY, (Reported) Entered as Reported by: NADINE CHE on 07/14/18 0732 Metoprolol Succinate (Metoprolol Succinate) 50 Mg Tab.er.24h, 50 MG PO BID, (Reported) Entered as Reported by: ARNULFO LONDON on 09/06/22 1244 Multivit-Min/Folic Acid/Biotin (Hair, Skin & Nails Caplet) 66.7 Mcg-1,000 Mcg Tablet, 1 EACH PO DAILY, (Reported) Entered as Reported by: ARNULFO LONDON on 05/05/23 1000 Nystatin (Nystatin) 100,000 Unit/Ml Oral.susp, 2 ML PO QID, (Reported) Entered as Reported by: ARNULFO LONDON on 05/05/23 1000 Barton-3/Dha/Epa/Fish Oil (Fish Oil EC 1,200 mg Softgel) 1 Each Capsule.dr, 1 EACH PO DAILY, (Reported) Entered as Reported by: NADINE CHE on 07/14/18 0732 Pantoprazole Sodium (Pantoprazole Sodium) 40 Mg Tablet.dr, 40 MG PO DAILY, (Reported) Entered as Reported by: ARNULFO LONDON on 03/25/22 1341 Potassium Chloride (Potassium Chloride) 10 Meq Capsule.er, 10 MEQ PO DAILY, (Reported) Entered as Reported by: ARNULFO LONDON on 03/25/22 1341 Sucralfate (Sucralfate) 1 Gram Tablet, 1 GM PO QIDACHS, (Reported) Entered as Reported by: ARNULFO LONDON on 05/05/23 1000 Ticagrelor (Brilinta) 90 Mg Tablet, 90 MG PO BID Prescribed by: MAKAYLA CHUNG on 05/05/23 1008 Physical Exam-Cardiology Physical Exam Vital Signs/I&O 08/05/23 08/05/23 08/05/23 08/05/23 04:22 06:10 15:34 15:44 Temp 36.3 Pulse 112 114 65 B/P (MAP) 151/97 139/114 Capillary Refill : Less Than 3 Seconds Constitutional: appears stated age, AAO x 3 HEENT: PERRL Neck: non-tender, supple Respiratory: other (Diminished breath sounds bilaterally) Cardiovascular: irregularly irregular, tachycardia, S1 and S2 Gastrointestinal: soft, round, other (Nontender) Rectal: deferred Extremities: normal range of motion, no lower extremity edema bilateral Neurologic/Psychiatric: no motor/sensory deficits, alert, normal mood/affect Skin: other (Bilateral skin changes from the upper and lower extremities) Lymphatic: no adenopathy Data Review Labs Laboratory Tests 08/05/23 03:20: White Blood Count 10.3, Red Blood Count 3.53L, Hemoglobin 9.7L, Hematocrit 32L, Mean Corpuscular Volume 91, Mean Corpuscular Hemoglobin 28, Mean Corpuscular Hemoglobin Concent 30L, Red Cell Distribution Width 16.1H, Platelet Count 296, Mean Platelet Volume 10.0, Immature Granulocyte % (Auto) 2, Neutrophils (%) (Auto) 79H, Lymphocytes (%) (Auto) 11L, Monocytes (%) (Auto) 8, Eosinophils (%) (Auto) 0, Basophils (%) (Auto) 0, Neutrophils # (Auto) 8.1H, Lymphocytes # (Auto) 1.2, Monocytes # (Auto) 0.8, Eosinophils # (Auto) 0.0, Basophils # (Auto) 0.0, Immature Granulocyte # (Auto) 0.2H, Prothrombin Time 14.8H, INR Comment 1.1, Activated Partial Thromboplast Time 38H, Sodium Level 139, Potassium Level 3.6, Chloride Level 105, Carbon Dioxide Level 23, Anion Gap 11, Blood Urea Nit rogen 31H, Creatinine 1.69H, Estimat Glomerular Filtration Rate 39, BUN/Creatinine Ratio 18, Glucose Level 101, Calcium Level 8.8, Corrected Calcium 8.9, Magnesium Level 2.4, Total Bilirubin 0.4, Aspartate Amino Transf (AST/SGOT) 33, Alanine Aminotransferase (ALT/SGPT) 33, Alkaline Phosphatase 77, Troponin I 1.066*H, Total Protein 6.7, Albumin 3.9 Radiology Date of Exam:08/05/23 CHEST 1 VIEW, AP/PA ONLY EXAM: CHEST 1 VIEW, AP/PA ONLY INDICATION: Chest pain. COMPARISON: 09/18/2022. FINDINGS: Normal heart size and central pulmonary vascularity. No focal pulmonary opacity. No pleural effusion or pneumothorax. No acute osseous findings. Implantable loop recorder. No significant change. IMPRESSION: No acute cardiopulmonary findings. ECG Impression ECG Initial ECG Impression Date: Aug 05, 2023 Initial ECG Impression Time: 16:04 Comment Atrial fibrillation with rapid response, bilateral ST depression possible subendocardial ischemia A/P-Cardiology Assessment/Admission Diagnosis Unstable angina. Possible NSTEMI. Rapid atrial fibrillation. CAD. Status post PCI. Renal insufficiency Admission Status: Inpatient Order (span 2 midnights) Reason for Inpatient Admission: Non-STEMI Plan I reviewed the angiogram that was done in this hospital last April. We will try to obtain the results of the PCI which was done in [facility]. We will switch patient to Lovenox, hold Eliquis. Continue beta-blockers, Brilinta, aspirin, statins. Continue to monitor renal function. Will consider to proceed with coronary angiography tomorrow Clinical Quality Measures AMI/AHF: ASA po Prior to arrival: NADIRA Oleary MD Aug 05, 2023 16:03
[2023-08-05] MEDS ORDERED: TICA90TA PO (16:14)
[2023-08-05] MEDS ORDERED: ATOR40TA70 PO (16:14)
[2023-08-05] MEDS ORDERED: GABA300C PO (16:14)
[2023-08-05] MEDS ORDERED: ACET-2267 PO (16:14)
[2023-08-05] MEDS ORDERED: ASPI-999 PO (16:14)
[2023-08-05] MEDS ORDERED: AMLO-250 PO (16:14)
[2023-08-05] MEDS ORDERED: ENOXAPARIN 80 MG/0.8 ML SYRINGE SC NR (16:15)
[2023-08-05] MEDS ORDERED: RT-ALBUTEROL SULF 2.5 MG/3 ML PRE-MIX VIAL INH PRN (16:30)
[2023-08-05] MEDS: oxyCODONE IMMEDIATE RELEASE 5 MG TABLET PO PRN (18:46)
[2023-08-05] MEDS: guaiFENesin 600 MG TABLET PO SCH (20:39)
[2023-08-05] MEDS: TICAGRELOR 90 MG TABLET (BRILINTA) PO SCH (20:40)
[2023-08-05] MEDS: SENNOSIDES 8.6 MG TABLET PO SCH (20:49)
[2023-08-05] MEDS: DOCUSATE SODIUM 100 MG CAPSULE PO SCH (20:49)
[2023-08-05] MEDS ORDERED: APIXABAN 5 MG TABLET PO SCH (21:00)
[2023-08-06 05:01] LABS: ALBUMIN 3.6 GM/DL (3.2-4.5)
[2023-08-06 05:03] LABS: CALCIUM 8.7 MG/DL (8.5-10.1)
[2023-08-06 05:04] LABS: TOTAL PROTEIN 6.1 GM/DL (6.4-8.2)
[2023-08-06 05:06] LABS: BILIRUBIN,TOTAL 0.4 MG/DL (0.1-1.0)
[2023-08-06 05:07] LABS: PHOSPHORUS 3.3 MG/DL (2.3-4.7)
[2023-08-06 05:08] LABS: CREATININE SERUM 1.28 MG/DL (0.60-1.30)
[2023-08-06 05:10] LABS: MAGNESIUM 2.2 MG/DL (1.6-2.4)
[2023-08-06] MEDS: MAGNESIUM 1 GM/100 ML IVPB 100 ML IV SCH (05:13)
[2023-08-06] MEDS: POTASSIUM CHLORIDE 20 MEQ TABLET PO SCH (05:13)
[2023-08-06] MEDS: POTASSIUM CL 10MEQ/50ML IVPB 50 ML IV SCH (05:13)
--- NOTE | 2023-08-06 05:30 | Progress Note ---
Subjective Date Seen by a Provider: Aug 06, 2023 Time Seen by a Provider: 11:00 Subjective/Events-last exam Patient awaiting cardiac cath Denies any chest pain Holding Eliquis until cardiac cath completed Family at bedside Review of Systems General: Fatigue, Malaise Objective Exam Last Set of Vital Signs Vital Signs Date Time Temp Pulse Resp B/P (MAP) Pulse Ox O2 Delivery O2 Flow Rate FiO2 08/06/23 05:00 70 20 131/59 (83) 98 Room Air 08/06/23 04:00 36.3 Capillary Refill : Less Than 3 Seconds I&O Intake and Output 08/06/23 00:00 Intake Total 400 ml Output Total 250 ml Balance 150 ml Intake Oral 400 ml Output Urine Total 250 ml # Bowel Movements 1 Daily Weight Change No General: Alert, Oriented X3, Cooperative, No Acute Distress Lungs: Clear to Auscultation, Normal Air Movement Heart: Regular Rate, Normal S1, Normal S2, No Murmurs Psych/Mental Status: Mental Status NL, Mood NL Results Lab Laboratory Tests 08/06/23 04:03: Sodium Level 137, Potassium Level 4.0, Chloride Level 106, Carbon Dioxide Level 25, Anion Gap 6, Blood Urea Nitrogen 25H, Creatinine 1.28, Estimat Glomerular Filtration Rate 55, BUN/Creatinine Ratio 20, Glucose Level 105, Calcium Level 8.7, Corrected Calcium 9.0, Phosphorus Level 3.3, Magnesium Level 2.2, Total Bilirubin 0.4, Aspartate Amino Transf (AST/SGOT) 39H, Alanine Aminotransferase (ALT/SGPT) 43, Alkaline Phosphatase 73, Total Protein 6.1L, Albumin 3.6 Assessment/Plan Assessment/Plan Assess & Plan/Chief Complaint Assessment: Atrial flutter with RVR placed on diltiazem drip Chest pain with elevated troponin and known history of CAD with stents Hypertension Hyperlipidemia Plan: ICU admission Cardiology consult Marquise Longoria Aspirin Statin Cardiac cath Clinical Quality Measures AMI/AHF: ASA po Prior to arrival: KAREN Davenport DO Aug 06, 2023 05:30
[2023-08-06] MEDS: GABAPENTIN 300 MG CAPSULE PO PRN ×2 (05:35→18:01)
[2023-08-06] MEDS: PANTOPRAZOLE 40 MG TABLET PO SCH (06:15)
[2023-08-06 06:36] LABS: BASOPHILS # (AUTO) 0.1 10^3/uL (0.0-0.1); BASOPHILS % (AUTO) 1 % (0-10); EOSINOPHILS % (AUTO) 0 % (0-10); HEMATOCRIT 31 % (40-54); HEMOGLOBIN 9.6 g/dL (13.3-17.7); LYMPHOCYTES # (AUTO) 1.5 10^3/uL (1.0-4.0); LYMPHOCYTES % (AUTO) 14 % (12-44); MEAN CORPUSCULAR HEMOGLOBIN 28 pg (25-34); MEAN CORPUSCULAR HGB CONC 32 g/dL (32-36); MEAN CORPUSCULAR VOLUME 90 fL (80-99); MEAN PLATELET VOLUME 10.3 fL (9.0-12.2); MONOCYTES # (AUTO) 0.8 10^3/uL (0.0-1.0); MONOCYTES % (AUTO) 8 % (0-12); NEUTROPHILS # (AUTO) 8.1 10^3/uL (1.8-7.8); NEUTROPHILS % (AUTO) 77 % (42-75); PLATELET COUNT 288 10^3/uL (130-400); WHITE BLOOD COUNT 10.5 10^3/uL (4.3-11.0)
[2023-08-06] MEDS ORDERED: LIDOCAINE 1% INJ 20 ML VIAL ONE (06:36)
[2023-08-06] MEDS ORDERED: HEParin (CATH LAB) 2,000 ML IV ONE (06:36)
[2023-08-06] MEDS: morphine INJ 4 MG/ML 1 ML (VIAL/SYRINGE) IV PRN ×2 (08:58→09:28)
--- NOTE | 2023-08-06 09:10 | Diagnostic Imaging Report ---
INDICATION: Respiratory distress. Study compared to 08/05/2023 FINDINGS: The lungs are clear. No failure. No infiltrate, effusion or pneumothorax. IMPRESSION: No acute appearing abnormality. Dictated by: Dictated on workstation # [id number]
[2023-08-06] MEDS: DOCUSATE SODIUM 100 MG CAPSULE PO SCH ×2 (09:52→20:40)
[2023-08-06] MEDS: amLODIPine 5 MG TABLET PO SCH (09:52)
[2023-08-06] MEDS: TICAGRELOR 90 MG TABLET (BRILINTA) PO SCH ×4 (09:52→20:40)
[2023-08-06] MEDS: ASPIRIN enteric coated 81MG TABLET PO SCH (09:53)
[2023-08-06] MEDS: SENNOSIDES 8.6 MG TABLET PO SCH ×2 (09:53→20:40)
[2023-08-06] MEDS: FUROSEMIDE 40 MG TABLET PO SCH (09:53)
[2023-08-06] MEDS: guaiFENesin 600 MG TABLET PO SCH ×2 (09:53→20:40)
[2023-08-06] MEDS: dilTIAZem DRIP PRE-MIX 125 ML IV SCH ×2 (10:47→19:44)
[2023-08-06] MEDS ORDERED: HEParin 1000 UNIT/ML (10ML VIAL) FOR BOLUS ONE (11:02)
[2023-08-06] MEDS ORDERED: VERAPAMIL 5 MG/2 ML (CALAN) VIAL IV ONE (11:02)
[2023-08-06] MEDS ORDERED: NITRO DRIP 25000 MCG/D5W 250 ML IV ONE (11:02)
[2023-08-06] MEDS ORDERED: fentaNYL INJECTION 100 MCG/2 ML VIAL ONE (11:02)
[2023-08-06] MEDS ORDERED: MIDAZOLAM INJ 5 MG/5 ML VIAL ONE (11:02)
[2023-08-06] MEDS ORDERED: LIDOCAINE 2% INJ 20 ML VIAL ONE (11:06)
[2023-08-06] MEDS ORDERED: NS IV 1000 ML 1,000 ML ONE (11:23)
--- NOTE | 2023-08-06 11:59 | Tele-ICU Progress Note ---
Subjective Date Seen by a Provider: Aug 06, 2023 Time Seen by a Provider: 11:59 Subjective/Events-last exam (Tele-ICU Physician , consultation as per request of PCP Service provided via interactive audio and video telecommunications E-CARE system to a patient admitted to ICU bed in [facility]. Available chart/ vitals / labs / Images reviewed H&P is from ER notes Patient's information available about PMH, Shx, Fhx allergy reviewed inEMR. ROS as per chart and RN report Now in ICU, hemodynamically stable Video assessment done using teleICU camera, rest of exam as per RN Discussed with RN. Hospital course: A/P Unstable angina./Possible NSTEMI/ CAD - PER CARDS . plans for cath Rapid atrial fibrillation. - rate controlled - lovenox feull dose JESICA/CKD - improved -cont hydration with anticipated contrast Lines : , (Central Line Necessity Reviewed) Hassan: OG: Nutrition: Analgesia: Anxiety/ delirium VTE Prophylaxis: Stress Ulcer Prophylaxis: Plans in collaboration with bedside consultants and IM MDs. Discussed with RN to reach out if any questions or concerns A total of 10 minutes of critical care time was devoted to this patient today, required to treat and/or prevent further deterioration of critical care condition ( as above ) . I am remotely monitoring this patient from another state. I am unable to do the bedside exam, and history/physical and pertinent information is taken from other notes in the computer and bedside staff. . Sepsis Event Evaluation Height, Weight, BMI Height: 5'8.00" Weight: 185lbs. 0.0oz. 83.701620dj; 24.19 BMI Method:Stated Exam Exam Patient acknowledged, consented, and participated in this virtual visit which was conducted using real time audio/video Vital Signs Date Time Temp Pulse Resp B/P (MAP) Pulse Ox O2 Delivery O2 Flow Rate FiO2 08/06/23 11:00 76 13 122/80 (94) 95 Room Air 08/06/23 10:47 75 124/65 08/06/23 10:00 81 21 136/109 (118) 93 Room Air 08/06/23 09:00 70 21 116/82 (93) 95 Room Air 08/06/23 08:00 Room Air 08/06/23 08:00 70 11 113/86 (95) 97 Room Air 08/06/23 07:58 36.6 08/06/23 07:00 75 16 116/59 (78) 99 Room Air 08/06/23 07:00 66 08/06/23 06:15 75 10 124/65 (84) 98 Room Air 08/06/23 06:00 75 7 140/87 (104) 94 Room Air 08/06/23 05:00 70 20 131/59 (83) 98 Room Air 08/06/23 04:02 60 27 159/68 (98) 99 Room Air 08/06/23 04:00 Room Air 08/06/23 04:00 36.3 08/06/23 03:00 75 18 129/67 (86) 98 Room Air 08/06/23 02:00 75 137/67 (80) Room Air 08/06/23 01:00 55 18 102/56 (82) 97 Room Air 08/06/23 01:00 66 08/06/23 00:00 55 7 110/66 (85) 95 Room Air 08/05/23 23:47 36.4 08/05/23 23:03 Room Air 08/05/23 23:00 65 23 123/68 (91) 97 Room Air 08/05/23 22:00 65 19 126/54 (69) 94 Room Air 08/05/23 21:00 65 21 120/55 (78) 94 Room Air 08/05/23 20:00 Room Air 08/05/23 20:00 57 10 112/54 (69) 96 Room Air 08/05/23 19:45 68 33 112/82 (108) 97 Room Air 08/05/23 19:41 57 26 115/51 (81) 93 Room Air 08/05/23 19:33 36.5 61 20 115/51 (72) 97 Room Air 08/05/23 19:30 77 17 95 Room Air 08/05/23 19:15 59 22 114/61 (81) 99 Room Air 08/05/23 19:00 57 08/05/23 19:00 57 19 106/57 (71) 98 Room Air 08/05/23 18:00 57 23 114/68 (83) 99 Room Air 08/05/23 17:34 Room Air 08/05/23 17:00 61 10 102/50 (67) 99 Room Air 08/05/23 16:23 74 94 08/05/23 16:16 90 18 106/64 (78) 89 Room Air 08/05/23 16:00 Room Air 08/05/23 15:44 36.3 08/05/23 15:34 65 08/05/23 15:00 66 08/05/23 14:15 36.9 75 18 104/64 96 Room Air I & O 08/06/23 06:59 Intake Total 500 ml Output Total 600 ml Balance -100 ml Height & Weight Height: 5'8.00" Weight: 185lbs. 0.0oz. 83.921964mw; 24.19 BMI Method:Stated General Appearance: No Apparent Distress, WD/WN, Chronically ill HEENT: PERRL/EOMI Neck: Normal Inspection Respiratory: Lungs Clear, Normal Breath Sounds, No Accessory Muscle Use, No Respiratory Distress Cardiovascular: Irregularly Irregular, Tachycardia (112 HR) Capillary Refill: Less Than 3 Seconds Extremity: Normal Inspection, No Pedal Edema Neurologic/Psychiatric: Alert, Oriented x3, No Motor/Sensory Deficits, Normal Mood/Affect Skin: Warm/Dry, Pallor Results Lab Laboratory Tests 08/05/23 03:20 08/06/23 04:03 Assessment/Plan Assessment/Plan 1 SAMUEL ALVAREZ MD Aug 06, 2023 11:59
[2023-08-06] MEDS ORDERED: TICAGRELOR 90 MG TABLET (BRILINTA) PO ONE (12:49)
[2023-08-06] MEDS ORDERED: ASPIRIN 325 MG TABLET ONE (12:49)
--- NOTE | 2023-08-06 15:22 | Cardiac Cath Report ---
Cardiac Cath Report Physician (s)/[employer] Consultant (s) Physician NADIRA BURKS MD Pre-Procedure Diagnosis Pre-Procedure Diagnosis: Non-STEMI Post-Procedure Note Procedure Start Time: 11:30 Name of Procedure: after informed consent was signed by the patient in the presence of patient's family, patient was taken to the [facility]. Patient was positioned on the procedure table in the usual fashion. Right wrist area was cleaned prepped and draped in the usual sterile fashion. After intravenous sedation with Versed and fentanyl was administered under local anesthesia with lidocaine right radial artery was cannulated with 6 Sinhala.. Radial artery cocktail was given. Under fluoroscopic guidance JR 4 catheter was advanced up to the ascending aorta. Right coronary artery was cannulated. Right coronary artery was visualized. Then left coronary artery was cannulated, left coronary artery was visualized in multiple views. Results of coronary angiogram: Left main has no significant stenosis. LAD has a patent stent in the proximal portion, there is diffuse mild disease in the mid and distal portion. There is diffuse disease of the diagonal arteries which are small. Circumflex artery has a patent stent in the proximal portion and is occluded in the midportion with collateral flow to fill to the second obtuse marginal branches. Right coronary artery has patent stents, no significant stenosis. Disposition: Will proceed with PCI of the circumflex artery. PCI procedure: 6 Sinhala EBU guiding catheter was advanced under fluoroscopic guidance up to the aortic root and left coronary artery was cannulated. BMW wire was advanced into the circumflex artery and under fluoroscopic guidance was threaded into the distal portion of the second attempt with marginal branch beyond the point of occlusion. 2.0/12 mm angioplasty balloon catheter was advanced over the guidewire into the mid portion of the circumflex artery and 2 balloon inflations with 10 atmospheric pressure was performed Angiogram was repeated which showed cheondoism of the flow in the mid and distal portions of the circumflex artery. Then angioplasty balloon was withdrawn into 2.5/23 mm drug-eluting stent was inserted and successfully deployed in the circumflex artery. Coronary angiogram was repeated which showed ARTEM-3 flow without any signs of perforation or dissection. Then all catheters and wires were withdrawn. Radial sheath was pulled out and hemostasis was achieved by HemoBand application. Patient was transferred from the [facility] in stable condition without any complaints Total contrast amount 150 cc Anesthesia Type: Conscious Sedation Post-Procedure Diagnosis Post-operative diagnosis: Acute non-STEMI. Status post PCI NADIRA BURKS MD Aug 06, 2023 15:22
[2023-08-06] MEDS: oxyCODONE IMMEDIATE RELEASE 5 MG TABLET PO PRN (18:01)
[2023-08-06] MEDS: APIXABAN 5 MG TABLET PO SCH (20:40)
[2023-08-06] MEDS: POTASSIUM CHLORIDE 10 MEQ TABLET PO SCH (20:40)
[2023-08-07 04:00] LABS: BASOPHILS % (AUTO) 0 % (0-10); EOSINOPHILS % (AUTO) 0 % (0-10); HEMATOCRIT 29 % (40-54); HEMOGLOBIN 8.8 g/dL (13.3-17.7); LYMPHOCYTES # (AUTO) 1.3 10^3/uL (1.0-4.0); LYMPHOCYTES % (AUTO) 11 % (12-44); MEAN CORPUSCULAR HEMOGLOBIN 28 pg (25-34); MEAN CORPUSCULAR HGB CONC 31 g/dL (32-36); MEAN CORPUSCULAR VOLUME 90 fL (80-99); MEAN PLATELET VOLUME 10.6 fL (9.0-12.2); MONOCYTES # (AUTO) 0.9 10^3/uL (0.0-1.0); MONOCYTES % (AUTO) 8 % (0-12); NEUTROPHILS # (AUTO) 8.9 10^3/uL (1.8-7.8); NEUTROPHILS % (AUTO) 79 % (42-75); PLATELET COUNT 289 10^3/uL (130-400); WHITE BLOOD COUNT 11.2 10^3/uL (4.3-11.0)
[2023-08-07 04:48] LABS: ALBUMIN 3.4 GM/DL (3.2-4.5); BILIRUBIN,TOTAL 0.4 MG/DL (0.1-1.0); CALCIUM 8.7 MG/DL (8.5-10.1); CREATININE SERUM 1.27 MG/DL (0.60-1.30); PHOSPHORUS 3.4 MG/DL (2.3-4.7); POTASSIUM 4.4 MMOL/L (3.6-5.0); TOTAL PROTEIN 5.8 GM/DL (6.4-8.2)
[2023-08-07] MEDS: MAGNESIUM 1 GM/100 ML IVPB 100 ML IV SCH (04:51)
[2023-08-07] MEDS: POTASSIUM CHLORIDE 20 MEQ TABLET PO SCH (04:51)
[2023-08-07] MEDS: POTASSIUM CL 10MEQ/50ML IVPB 50 ML IV SCH (04:51)
[2023-08-07] MEDS: PANTOPRAZOLE 40 MG TABLET PO SCH (06:23)
[2023-08-07] MEDS: ASPIRIN enteric coated 81MG TABLET PO SCH (09:01)
[2023-08-07] MEDS: APIXABAN 5 MG TABLET PO SCH ×2 (09:01→20:52)
[2023-08-07] MEDS: amLODIPine 5 MG TABLET PO SCH (09:01)
[2023-08-07] MEDS: FUROSEMIDE 40 MG TABLET PO SCH (09:01)
[2023-08-07] MEDS: TICAGRELOR 90 MG TABLET (BRILINTA) PO SCH ×4 (09:02→20:51)
[2023-08-07] MEDS: guaiFENesin 600 MG TABLET PO SCH ×2 (09:02→20:52)
[2023-08-07] MEDS: SENNOSIDES 8.6 MG TABLET PO SCH ×3 (09:04→21:23)
[2023-08-07] MEDS: DOCUSATE SODIUM 100 MG CAPSULE PO SCH ×2 (09:04→20:51)
[2023-08-07] MEDS: GABAPENTIN 300 MG CAPSULE PO PRN ×2 (09:06→15:20)
[2023-08-07] MEDS ORDERED: METO50TA7 PO (10:19)
--- NOTE | 2023-08-07 10:21 | Discharge Summary ---
Diagnosis/Chief Complaint Date of Admission Aug 05, 2023 at 14:35 Date of Discharge Discharge Date: Aug 07, 2023 Discharge Summary Discharge Physical Examination Allergies: Coded Allergies: No Known Drug Allergies (Verified , 09/05/22) Vitals & I&Os Vital Signs Date Time Temp Pulse Resp B/P (MAP) Pulse Ox O2 Delivery O2 Flow Rate FiO2 08/07/23 18:00 71 23 103/59 (86) 94 Room Air 08/07/23 15:39 37.6 Hospital Course Labs (last 24 hrs) Laboratory Tests 08/05/23 03:20: White Blood Count 10.3, Red Blood Count 3.53L, Hemoglobin 9.7L, Hematocrit 32L, Mean Corpuscular Volume 91, Mean Corpuscular Hemoglobin 28, Mean Corpuscular Hemoglobin Concent 30L, Red Cell Distribution Width 16.1H, Platelet Count 296, Mean Platelet Volume 10.0, Immature Granulocyte % (Auto) 2, Neutrophils (%) (Auto) 79H, Lymphocytes (%) (Auto) 11L, Monocytes (%) (Auto) 8, Eosinophils (%) (Auto) 0, Basophils (%) (Auto) 0, Neutrophils # (Auto) 8.1H, Lymphocytes # (Auto) 1.2, Monocytes # (Auto) 0.8, Eosinophils # (Auto) 0.0, Basophils # (Auto) 0.0, Immature Granulocyte # (Auto) 0.2H, Prothrombin Time 14.8H, INR Comment 1.1, Activated Partial Thromboplast Time 38H, Sodium Level 139, Potassium Level 3.6, Chloride Level 105, Carbon Dioxide Level 23, Anion Gap 11, Blood Urea Nitrogen 31H, Creatinine 1.69H, Estimat Glomerular Filtration Rate 39, BUN/Creatinine Ratio 18, Glucose Level 101, Calcium Level 8.8, Corrected Calcium 8.9, Magnesium Level 2.4, Total Bilirubin 0.4, Aspartate Amino Transf (AST/SGOT) 33, Alanine Aminotransferase (ALT/SGPT) 33, Alkaline Phosphatase 77, Troponin I 1.066*H, Total Protein 6.7, Albumin 3.9 08/06/23 04:03: White Blood Count 10.5, Red Blood Count 3.39L, Hemoglobin 9.6L, Hematocrit 31L, Mean Corpuscular Volume 90, Mean Corpuscular Hemoglobin 28, Mean Corpuscular Hemoglobin Concent 32, Red Cell Distribution Width 16.1H, Platelet Count 288, Mean Platelet Volume 10.3, Immature Granulocyte % (Auto) 1, Neutrophils (%) (Auto) 77H, Lymphocytes (%) (Auto) 14, Monocytes (%) (Auto) 8, Eosinophils (%) (Auto) 0, Basophils (%) (Auto) 1, Neutrophils # (Auto) 8.1H, Lymphocytes # (Auto) 1.5, Monocytes # (Auto) 0.8, Eosinophils # (Auto) 0.0, Basophils # (Auto) 0.1, Immature Granulocyte # (Auto) 0.1, Sodium Level 137, Potassium Level 4.0, Chloride Level 106, Carbon Dioxide Level 25, Anion Gap 6, Blood Urea Nitrogen 25H, Creatinine 1.28, Estimat Glomerular Filtration Rate 55, BUN/Creatinine Rat io 20, Glucose Level 105, Calcium Level 8.7, Corrected Calcium 9.0, Magnesium Level 2.2, Total Bilirubin 0.4, Aspartate Amino Transf (AST/SGOT) 39H, Alanine Aminotransferase (ALT/SGPT) 43, Alkaline Phosphatase 73, Troponin I 1.836*H, Total Protein 6.1L, Albumin 3.6, Phosphorus Level 3.3 08/07/23 03:37: White Blood Count 11.2H, Red Blood Count 3.17L, Hemoglobin 8.8L, Hematocrit 29L, Mean Corpuscular Volume 90, Mean Corpuscular Hemoglobin 28, Mean Corpuscular Hemoglobin Concent 31L, Red Cell Distribution Width 16.3H, Platelet Count 289, Mean Platelet Volume 10.6, Immature Granulocyte % (Auto) 1, Neutrophils (%) (Auto) 79H, Lymphocytes (%) (Auto) 11L, Monocytes (%) (Auto) 8, Eosinophils (%) (Auto) 0, Basophils (%) (Auto) 0, Neutrophils # (Auto) 8.9H, Lymphocytes # (Auto) 1.3, Monocytes # (Auto) 0.9, Eosinophils # (Auto) 0.0, Basophils # (Auto) 0.0, Immature Granulocyte # (Auto) 0.1, Sodium Level 139, Potassium Level 4.4, Chloride Level 109H, Carbon Dioxide Level 22, Anion Gap 8, Blood Urea Nitrogen 23H, Creatinine 1.27, Estimat Glomerular Filtration Rate 55, BUN/Creatinine Ratio 18, Glucose Level 121H, Calcium Level 8.7, Corrected Calcium 9.2, Magnesium Level 2.0, Total Bilirubin 0.4, Aspartate Amino Transf (AST/SGOT) 28, Alanine Aminotransferase (ALT/SGPT) 37, Alkaline Phosphatase 72, Total Protein 5.8L, Albumin 3.4, Phosphorus Level 3.4 Pending Labs Laboratory Tests 08/05/23 03:20: White Blood Count 10.3, Red Blood Count 3.53, Hemoglobin 9.7, Hematocrit 32, Mean Corpuscular Volume 91, Mean Corpuscular Hemoglobin 28, Mean Corpuscular Hemoglobin Concent 30, Red Cell Distribution Width 16.1, Platelet Count 296, Mean Platelet Volume 10.0, Immature Granulocyte % (Auto) 2, Neutrophils (%) (Auto) 79, Lymphocytes (%) (Auto) 11, Monocytes (%) (Auto) 8, Eosinophils (%) (Auto) 0, Basophils (%) (Auto) 0, Neutrophils # (Auto) 8.1, Lymphocytes # (Auto) 1.2, Monocytes # (Auto) 0.8, Eosinophils # (Auto) 0.0, Basophils # (Auto) 0.0, Immature Granulocyte # (Auto) 0.2, Prothrombin Time 14.8, INR Comment 1.1, Activated Partial Thromboplast Time 38, Sodium Level 139, Potassium Level 3.6, Chloride Level 105, Carbon Dioxide Level 23, Anion Gap 11, Blood Urea Nitrogen 31, Creatinine 1.69, Estimat Glomerular Filtration Rate 39, BUN/Creatinine Ratio 18, Glucose Level 101, Calcium Level 8.8, Corrected Calcium 8.9, Magnesium Level 2.4, Total Bilirubin 0.4, Aspartate Amino Transf (AST/SGOT) 33, Alanine Aminotransferase (ALT/SGPT) 33, Alkaline Phosphatase 77, Troponin I 1.066, Total Protein 6.7, Albumin 3.9 08/06/23 04:03: White Blood Count 10.5, Red Blood Count 3.39, Hemoglobin 9.6, Hematocrit 31, Mean Corpuscular Volume 90, Mean Corpuscular Hemoglobin 28, Mean Corpuscular Hemoglobin Concent 32, Red Cell Distribution Width 16.1, Platelet Count 288, Mean Platelet Volume 10.3, Immature Granulocyte % (Auto) 1, Neutrophils (%) (Auto) 77, Lymphocytes (%) (Auto) 14, Monocytes (%) (Auto) 8, Eosinophils (%) (A uto) 0, Basophils (%) (Auto) 1, Neutrophils # (Auto) 8.1, Lymphocytes # (Auto) 1.5, Monocytes # (Auto) 0.8, Eosinophils # (Auto) 0.0, Basophils # (Auto) 0.1, Immature Granulocyte # (Auto) 0.1, Sodium Level 137, Potassium Level 4.0, Chloride Level 106, Carbon Dioxide Level 25, Anion Gap 6, Blood Urea Nitrogen 25, Creatinine 1.28, Estimat Glomerular Filtration Rate 55, BUN/Creatinine Ratio 20, Glucose Level 105, Calcium Level 8.7, Corrected Calcium 9.0, Magnesium Level 2.2, Total Bilirubin 0.4, Aspartate Amino Transf (AST/SGOT) 39, Alanine Aminotransferase (ALT/SGPT) 43, Alkaline Phosphatase 73, Troponin I 1.836, Total Protein 6.1, Albumin 3.6, Phosphorus Level 3.3 08/07/23 03:37: White Blood Count 11.2, Red Blood Count 3.17, Hemoglobin 8.8, Hematocrit 29, Mean Corpuscular Volume 90, Mean Corpuscular Hemoglobin 28, Mean Corpuscular Hemoglobin Concent 31, Red Cell Distribution Width 16.3, Platelet Count 289, Mean Platelet Volume 10.6, Immature Granulocyte % (Auto) 1, Neutrophils (%) (Auto) 79, Lymphocytes (%) (Auto) 11, Monocytes (%) (Auto) 8, Eosinophils (%) (Auto) 0, Basophils (%) (Auto) 0, Neutrophils # (Auto) 8.9, Lymphocytes # (Auto) 1.3, Monocytes # (Auto) 0.9, Eosinophils # (Auto) 0.0, Basophils # (Auto) 0.0, Immature Granulocyte # (Auto) 0.1, Sodium Level 139, Potassium Level 4.4, Chloride Level 109, Carbon Dioxide Level 22, Anion Gap 8, Blood Urea Nitrogen 2 3, Creatinine 1.27, Estimat Glomerular Filtration Rate 55, BUN/Creatinine Ratio 18, Glucose Level 121, Calcium Level 8.7, Corrected Calcium 9.2, Magnesium Level 2.0, Total Bilirubin 0.4, Aspartate Amino Transf (AST/SGOT) 28, Alanine Aminotransferase (ALT/SGPT) 37, Alkaline Phosphatase 72, Total Protein 5.8, Albumin 3.4, Phosphorus Level 3.4 Discharge Home Medications: Active Scripts Active Metoprolol Succinate 50 Mg Tab.er.24h 50 Mg PO BID Reported Tylenol Extra Strength (Acetaminophen) 500 Mg Tablet 500-1,000 Mg PO Q8H PRN Aspirin 81 Mg Tab.chew 81 Mg PO HS Brilinta (Ticagrelor) 90 Mg Tablet 90 Mg PO BID Amlodipine Besylate 5 Mg Tablet 5 Mg PO DAILY Atorvastatin Calcium 40 Mg Tablet 40 Mg PO DAILY Neurontin (Gabapentin) 300 Mg Capsule 300 Mg PO BID Dilt-Xr (Diltiazem HCl) 180 Mg Cap.er.deg 360 Mg PO DAILY TAKES 2 (180MG) CAPS Metoprolol Succinate 50 Mg Tab.er.24h 50 Mg PO DAILY Pantoprazole Sodium 40 Mg Tablet.dr 40 Mg PO DAILY LAST FILLED 04-25-2023 #30/30 DAY SUPPLY Potassium Chloride 10 Meq Capsule.er 10 Meq PO HS Eliquis (Apixaban) 5 Mg Tablet 5 Mg PO BID LAST FILLED 10-31-2022 #180/90 DAY SUPPLY Furosemide 40 Mg Tablet 40 Mg PO DAILY Instructions to patient/family Please see electronic discharge instructions given to patient. Clinical Quality Measures AMI/AHF: ASA po Prior to arrival: KAREN Davenport DO Aug 07, 2023 10:21
--- NOTE | 2023-08-07 11:09 | Diagnostic Imaging Report ---
INDICATION: Heart disease. Comparison made with prior examination of 08/06/2023. FINDINGS: The heart size is stable. The lungs are clear. There is no pleural effusion or pneumothorax. Mediastinum is unremarkable. Loop recorder overlies the left hemithorax. IMPRESSION: No acute cardiopulmonary abnormality. Dictated by: Dictated on workstation # [id number]
[2023-08-07] MEDS ORDERED: dilTIAZem ER 180 MG CAPSULE PO NR (13:15)
--- NOTE | 2023-08-07 14:19 | Cardiology Progress Note ---
Subjective Date Seen by Provider: Aug 07, 2023 Time Seen by Provider: 12:55 Subjective/Events-last exam No complaints. No chest pain. In atrial fibrillation with controlled rate, still on Cardizem drip. Creatinine is stable Exam Vital Signs Vital Signs Date Time Temp Pulse Resp B/P (MAP) Pulse Ox O2 Delivery O2 Flow Rate FiO2 08/07/23 13:00 81 136/83 (97) 92 Room Air 08/07/23 12:00 22 08/07/23 11:17 36.7 Physical Exam Alert oriented, no distress. Neck supple no JVD. Lungs decreased breath sounds bilaterally. Heart: S1-S2, irregular rate. Abdomen soft, nontender. Extremities no edema. Good right radial pulse Labs Laboratory Tests Test 08/07/23 03:37 Range/Units White Blood Count 11.2 H 4.3-11.0 10^3/uL Red Blood Count 3.17 L 4.30-5.52 10^6/uL Hemoglobin 8.8 L 13.3-17.7 g/dL Hematocrit 29 L 40-54 % Mean Corpuscular Volume 90 80-99 fL Mean Corpuscular Hemoglobin 28 25-34 pg Mean Corpuscular Hemoglobin Concent 31 L 32-36 g/dL Red Cell Distribution Width 16.3 H 10.0-14.5 % Platelet Count 289 130-400 10^3/uL Mean Platelet Volume 10.6 9.0-12.2 fL Immature Granulocyte % (Auto) 1 % Neutrophils (%) (Auto) 79 H 42-75 % Lymphocytes (%) (Auto) 11 L 12-44 % Monocytes (%) (Auto) 8 0-12 % Eosinophils (%) (Auto) 0 0-10 % Basophils (%) (Auto) 0 0-10 % Neutrophils # (Auto) 8.9 H 1.8-7.8 10^3/uL Lymphocytes # (Auto) 1.3 1.0-4.0 10^3/uL Monocytes # (Auto) 0.9 0.0-1.0 10^3/uL Eosinophils # (Auto) 0.0 0.0-0.3 10^3/uL Basophils # (Auto) 0.0 0.0-0.1 10^3/uL Immature Granulocyte # (Auto) 0.1 0.0-0.1 10^3/uL Sodium Level 139 135-145 MMOL/L Potassium Level 4.4 3.6-5.0 MMOL/L Chloride Level 109 H 98-107 MMOL/L Carbon Dioxide Level 22 21-32 MMOL/L Anion Gap 8 5-14 MMOL/L Blood Urea Nitrogen 23 H 7-18 MG/DL Creatinine 1.27 0.60-1.30 MG/DL Estimat Glomerular Filtration Rate 55 BUN/Creatinine Ratio 18 Glucose Level 121 H 70-105 MG/DL Calcium Level 8.7 8.5-10.1 MG/DL Corrected Calcium 9.2 8.5-10.1 MG/DL Phosphorus Level 3.4 2.3-4.7 MG/DL Magnesium Level 2.0 1.6-2.4 MG/DL Total Bilirubin 0.4 0.1-1.0 MG/DL Aspartate Amino Transf (AST/SGOT) 28 5-34 U/L Alanine Aminotransferase (ALT/SGPT) 37 0-55 U/L Alkaline Phosphatase 72 40-136 U/L Total Protein 5.8 L 6.4-8.2 GM/DL Albumin 3.4 3.2-4.5 GM/DL A/P-Cardiology Admission Diagnosis Acute non-STEMI. Status post PCI. CAD. Chronic atrial fibrillation. Chronic renal insufficiency. Hypertension Assessment/Plan Will discontinue Cardizem drip. Will resume Cardizem p.o., increase the dose of metoprolol p.o. Continue Brilinta and aspirin. Continue Eliquis for atrial fibrillation. Will assess patient's heart rate without Cardizem drip. If the heart rate is controlled could be discharged home NADIRA BURKS MD Aug 07, 2023 14:19
--- NOTE | 2023-08-07 17:04 | Progress Note ---
Subjective Date Seen by a Provider: Aug 07, 2023 Time Seen by a Provider: 10:00 Subjective/Events-last exam Much improved Remains stable since intervention Godfrey salgado maintained Reviewed meds and labs Review of Systems General: Fatigue, Malaise Objective Exam Last Set of Vital Signs Vital Signs Date Time Temp Pulse Resp B/P (MAP) Pulse Ox O2 Delivery O2 Flow Rate FiO2 08/07/23 16:00 113 21 95 Room Air 08/07/23 15:39 37.6 Capillary Refill : Less Than 3 Seconds I&O Intake and Output 08/06/23 23:59 Intake Total 1175 ml Output Total 1650 ml Balance -475 ml Intake Oral 1050 ml IV Total 125 ml Output Urine Total 1650 ml General: Alert, Oriented X3, Cooperative, No Acute Distress Lungs: Clear to Auscultation, Normal Air Movement Heart: Other (irr irr) Psych/Mental Status: Mental Status NL Results Lab Laboratory Tests 08/07/23 03:37: White Blood Count 11.2H, Red Blood Count 3.17L, Hemoglobin 8.8L, Hematocrit 29L, Mean Corpuscular Volume 90, Mean Corpuscular Hemoglobin 28, Mean Corpuscular Hemoglobin Concent 31L, Red Cell Distribution Width 16.3H, Platelet Count 289, Mean Platelet Volume 10.6, Immature Granulocyte % (Auto) 1, Neutrophils (%) (Auto) 79H, Lymphocytes (%) (Auto) 11L, Monocytes (%) (Auto) 8, Eosinophils (%) (Auto) 0, Basophils (%) (Auto) 0, Neutrophils # (Auto) 8.9H, Lymphocytes # (Auto) 1.3, Monocytes # (Auto) 0.9, Eosinophils # (Auto) 0.0, Basophils # (Auto) 0.0, Immature Granulocyte # (Auto) 0.1, Sodium Level 139, Potassium Level 4.4, Chloride Level 109H, Carbon Dioxide Level 22, Anion Gap 8, Blood Urea Nitrogen 23H, Creatinine 1.27, Estimat Glomerular Filtration Rate 55, BUN/Creatinine Ratio 18, Glucose Level 121H, Calcium Level 8.7, Corrected Calcium 9.2, Phosphorus Level 3.4, Magnesium Level 2.0, Total Bilirubin 0.4, Aspartate Amino Transf (AST/SGOT) 28, Alanine Aminotransferase (ALT/SGPT) 37, Alkaline Phosphatase 72, Total Protein 5.8L, Albumin 3.4 Assessment/Plan Assessment/Plan Assess & Plan/Chief Complaint Assessment: Atrial flutter with RVR placed on diltiazem drip Chest pain with elevated troponin and known history of CAD with stents s/p cath with intervention Hypertension Hyperlipidemia Plan: ICU admission Cardiology consult Marquise Longoria Aspirin Statin Cardiac cath Clinical Quality Measures AMI/AHF: ASA po Prior to arrival: KAREN Davenport DO Aug 07, 2023 17:04
[2023-08-07] MEDS ORDERED: meTOprolol INJECTION 5 MG/5 ML VIAL IV PRN (19:15)
[2023-08-07 20:08] VITALS: BP 124/57
[2023-08-07] MEDS: POTASSIUM CHLORIDE 10 MEQ TABLET PO SCH (20:52)
[2023-08-08 00:08] VITALS: BP 125/82
[2023-08-08 05:38] LABS: BASOPHILS % (AUTO) 0 % (0-10); EOSINOPHILS # (AUTO) 0.1 10^3/uL (0.0-0.3); EOSINOPHILS % (AUTO) 1 % (0-10); HEMATOCRIT 29 % (40-54); HEMOGLOBIN 8.9 g/dL (13.3-17.7); LYMPHOCYTES # (AUTO) 1.4 10^3/uL (1.0-4.0); LYMPHOCYTES % (AUTO) 13 % (12-44); MEAN CORPUSCULAR HEMOGLOBIN 28 pg (25-34); MEAN CORPUSCULAR HGB CONC 31 g/dL (32-36); MEAN CORPUSCULAR VOLUME 90 fL (80-99); MEAN PLATELET VOLUME 10.3 fL (9.0-12.2); MONOCYTES # (AUTO) 0.9 10^3/uL (0.0-1.0); MONOCYTES % (AUTO) 9 % (0-12); NEUTROPHILS # (AUTO) 8.1 10^3/uL (1.8-7.8); NEUTROPHILS % (AUTO) 76 % (42-75); PLATELET COUNT 309 10^3/uL (130-400); WHITE BLOOD COUNT 10.6 10^3/uL (4.3-11.0)
[2023-08-08 05:57] LABS: ALBUMIN 3.5 GM/DL (3.2-4.5); BILIRUBIN,TOTAL 0.4 MG/DL (0.1-1.0); CALCIUM 8.7 MG/DL (8.5-10.1); CREATININE SERUM 1.27 MG/DL (0.60-1.30); MAGNESIUM 2.1 MG/DL (1.6-2.4); POTASSIUM 3.9 MMOL/L (3.6-5.0); TOTAL PROTEIN 5.8 GM/DL (6.4-8.2)
[2023-08-08] MEDS: MAGNESIUM 1 GM/100 ML IVPB 100 ML IV SCH (06:24)
[2023-08-08] MEDS: POTASSIUM CL 10MEQ/50ML IVPB 50 ML IV SCH (06:24)
[2023-08-08] MEDS: PANTOPRAZOLE 40 MG TABLET PO SCH (06:26)
[2023-08-08] MEDS: POTASSIUM CHLORIDE 20 MEQ TABLET PO SCH (06:39)
[2023-08-08 07:10] VITALS: BP 113/69
[2023-08-08 07:49] VITALS: BP 113/69
[2023-08-08] MEDS: TICAGRELOR 90 MG TABLET (BRILINTA) PO SCH ×2 (08:18→08:23)
[2023-08-08] MEDS: DOCUSATE SODIUM 100 MG CAPSULE PO SCH (08:23)
[2023-08-08] MEDS: amLODIPine 5 MG TABLET PO SCH (08:24)
[2023-08-08] MEDS: FUROSEMIDE 40 MG TABLET PO SCH (08:24)
[2023-08-08] MEDS: guaiFENesin 600 MG TABLET PO SCH (08:24)
[2023-08-08] MEDS: APIXABAN 5 MG TABLET PO SCH (08:24)
[2023-08-08] MEDS: ASPIRIN enteric coated 81MG TABLET PO SCH (08:24)
[2023-08-08] MEDS: SENNOSIDES 8.6 MG TABLET PO SCH (08:29)
[2023-08-08] MEDS: GABAPENTIN 300 MG CAPSULE PO PRN (08:29)
--- NOTE | 2023-08-08 08:54 | Discharge Summary ---
Diagnosis/Chief Complaint Date of Admission Aug 05, 2023 at 14:35 Date of Discharge Discharge Date: Aug 08, 2023 Discharge Diagnosis Assessment: Atrial flutter with RVR placed on diltiazem drip Chest pain with elevated troponin and known history of CAD with stents s/p cath with intervention Hypertension Hyperlipidemia Discharge Summary Discharge Physical Examination Allergies: Coded Allergies: No Known Drug Allergies (Verified , 09/05/22) Vitals & I&Os Vital Signs Date Time Temp Pulse Resp B/P (MAP) Pulse Ox O2 Delivery O2 Flow Rate FiO2 08/08/23 13:33 37.1 106 18 125/65 97 Room Air 0.00 08/08/23 07:49 21 General Appearance: Alert, Oriented X3, Cooperative Respiratory: Clear to Auscultation Cardiovascular: Regular Rate Psych/Mental Status: Mental Status NL Hospital Course Was the Problem List Reviewed?: Yes Uneventful hospital course after he was admitted for chest pain and elevated troponin with A-fib with RVR requiring Cardizem drip. Cardiac catheterization performed with intervention. Brilinta and aspirin and statin maintained. Eliquis maintained for stroke prophylaxis due to atrial fibrillation. Pulse was much better controlled and he was discharged in improved condition. Labs (last 24 hrs) Laboratory Tests 08/05/23 03:20: White Blood Count 10.3, Red Blood Count 3.53L, Hemoglobin 9.7L, Hematocrit 32L, Mean Corpuscular Volume 91, Mean Corpuscular Hemoglobin 28, Mean Corpuscular Hemoglobin Concent 30L, Red Cell Distribution Width 16.1H, Platelet Count 296, Mean Platelet Volume 10.0, Immature Granulocyte % (Auto) 2, Neutrophils (%) (Auto) 79H, Lymphocytes (%) (Auto) 11L, Monocytes (%) (Auto) 8, Eosinophils (%) (Auto) 0, Basophils (%) (Auto) 0, Neutrophils # (Auto) 8.1H, Lymphocytes # (Auto) 1.2, Monocytes # (Auto) 0.8, Eosinophils # (Auto) 0.0, Basophils # (Auto) 0.0, Immature Granulocyte # (Auto) 0.2H, Prothrombin Time 14.8H, INR Comment 1.1, Activated Partial Thromboplast Time 38H, Sodium Level 139, Potassium Level 3.6, Chloride Level 105, Carbon Dioxide Level 23, Anion Gap 11, Blood Urea Nitrogen 31H, Creatinine 1.69H, Estimat Glomerular Filtration Rate 39, BUN/Creatinine Ratio 18, Glucose Level 101, Calcium Level 8.8, Corrected Calcium 8.9, Magnesium Level 2.4, Total Bilirubin 0.4, Aspartate Amino Transf (AST/SGOT) 33, Alanine Aminotransferase (ALT/SGPT) 33, Alkaline Phosphatase 77, Troponin I 1.066*H, Total Protein 6.7, Albumin 3.9 08/06/23 04:03: White Blood Count 10.5, Red Blood Count 3.39L, Hemoglobin 9.6L, Hematocrit 31L, Mean Corpuscular Volume 90, Mean Corpuscular Hemoglobin 28, Mean Corpuscular Hemoglobin Concent 32, Red Cell Distribution Width 16.1H, Platelet Count 288, Mean Platelet Volume 10.3, Immature Granulocyte % (Auto) 1, Neutrophils (%) (Auto) 77H, Lymphocytes (%) (Auto) 14, Monocytes (%) (Auto) 8, Eosinophils (%) (Auto) 0, Basophils (%) (Auto) 1, Neutrophils # (Auto) 8.1H, Lymphocytes # (Auto) 1.5, Monocytes # (Auto) 0.8, Eosinophils # (Auto) 0.0, Basophils # (Auto) 0.1, Immature Granulocyte # (Auto) 0.1, Sodium Level 137, Potassium Level 4.0, Chloride Level 106, Carbon Dioxide Level 25, Anion Gap 6, Blood Urea Nitrogen 25H, Creatinine 1.28, Estimat Glomerular Filtration Rate 55, BUN/Creatinine Ratio 20, Glucose Level 105, Calcium Level 8.7, Corrected Calcium 9.0, Magnesium Level 2.2, Total Bilirubin 0.4, Aspartate Amino Transf (AST/SGOT) 39H, Alanine Aminotransferase (ALT/SGPT) 43, Alkaline Phosphatase 73, Troponin I 1.836*H, Total Protein 6.1L, Albumin 3.6, Phosphorus Level 3.3 08/07/23 03:37: White Blood Count 11.2H, Red Blood Count 3.17L, Hemoglobin 8.8L, Hematocrit 29L, Mean Corpuscular Volume 90, Mean Corpuscular Hemoglobin 28, Mean Corpuscular Hemoglobin Concent 31L, Red Cell Distribution Width 16.3H, Platelet Count 289, Mean Platelet Volume 10.6, Immature Granulocyte % (Auto) 1, Neutrophils (%) (Auto) 79H, Lymphocytes (%) (Auto) 11L, Monocytes (%) (Auto) 8, Eosinophils (%) (Auto) 0, Basophils (%) (Auto) 0, Neutrophils # (Auto) 8.9H, Lymphocytes # (Auto) 1.3, Monocytes # (Auto) 0.9, Eosinophils # (Auto) 0.0, Basophils # (Auto) 0.0, Immature Granulocyte # (Auto) 0.1, Sodium Level 139, Potassium Level 4.4, Chloride Level 109H, Carbon Dioxide Level 22, Anion Gap 8, Blood Urea Nitrogen 23H, Creatinine 1.27, Estimat Glomerular Filtration Rate 55, BUN/Creatinine Ra demi 18, Glucose Level 121H, Calcium Level 8.7, Corrected Calcium 9.2, Magnesium Level 2.0, Total Bilirubin 0.4, Aspartate Amino Transf (AST/SGOT) 28, Alanine Aminotransferase (ALT/SGPT) 37, Alkaline Phosphatase 72, Total Protein 5.8L, Albumin 3.4, Phosphorus Level 3.4 08/08/23 05:08: White Blood Count 10.6, Red Blood Count 3.23L, Hemoglobin 8.9L, Hematocrit 29L, Mean Corpuscular Volume 90, Mean Corpuscular Hemoglobin 28, Mean Corpuscular Hemoglobin Concent 31L, Red Cell Distribution Width 16.2H, Platelet Count 309, Mean Platelet Volume 10.3, Immature Granulocyte % (Auto) 1, Neutrophils (%) (Auto) 76H, Lymphocytes (%) (Auto) 13, Monocytes (%) (Auto) 9, Eosinophils (%) (Auto) 1, Basophils (%) (Auto) 0, Neutrophils # (Auto) 8.1H, Lymphocytes # (Auto) 1.4, Monocytes # (Auto) 0.9, Eosinophils # (Auto) 0.1, Basophils # (Auto) 0.0, Immature Granulocyte # (Auto) 0.1, Sodium Level 141, Potassium Level 3.9, Chloride Level 108H, Carbon Dioxide Level 22, Anion Gap 11, Blood Urea Nitrogen 21H, Creatinine 1.27, Estimat Glomerular Filtration Rate 55, BUN/Creatinine Ratio 17, Glucose Level 107H, Calcium Level 8.7, Corrected Calcium 9.1, Magnesium Level 2.1, Total Bilirubin 0.4, Aspartate Amino Transf (AST/SGOT) 21, Alanine Aminotransferase (ALT/SGPT) 30, Alkaline Phosphatase 76, Total Protein 5.8L, Albumin 3.5 Pending Labs Laboratory Tests 08/05/23 03:20: White Blood Count 10.3, Red Blood Count 3.53, Hemoglobin 9.7, Hematocrit 32, Mean Corpuscular Volume 91, Mean Corpuscular Hemoglobin 28, Mean Corpuscular Hemoglobin Concent 30, Red Cell Distribution Width 16.1, Platelet Count 296, Mean Platelet Volume 10.0, Immature Granulocyte % (Auto) 2, Neutrophils (%) (Auto) 79, Lymphocytes (%) (Auto) 11, Monocytes (%) (Auto) 8, Eosinophils (%) (Auto) 0, Basophils (%) (Auto) 0, Neutrophils # (Auto) 8.1, Lymphocytes # (Auto) 1.2, Monocytes # (Auto) 0.8, Eosinophils # (Auto) 0.0, Basophils # (Auto) 0.0, Immature Granulocyte # (Auto) 0.2, Prothrombin Time 14.8, INR Comment 1.1, Activated Partial Thromboplast Time 38, Sodium Level 139, Potassium Level 3.6, Chloride Level 105, Carbon Dioxide Level 23, Anion Gap 11, Blood Urea Nitrogen 31, Creatinine 1.69, Estimat Glomerular Filtration Rate 39, BUN/Creatinine Ratio 18, Glucose Level 101, Calcium Level 8.8, Corrected Calcium 8.9, Magnesium Level 2.4, Total Bilirubin 0.4, Aspartate Amino Transf (AST/SGOT) 33, Alanine Aminotransferase (ALT/SGPT) 33, Alkaline Phosphatase 77, Troponin I 1.066, Total Protein 6.7, Albumin 3.9 08/06/23 04:03: White Blood Count 10.5, Red Blood Count 3.39, Hemoglobin 9.6, Hematocrit 31, Mean Corpuscular Volume 90, Mean Corpuscular Hemoglobin 28, Mean Corpuscular Hemoglobin Concent 32, Red Cell Distribution Width 16.1, Platelet Count 288, Mean Platelet Volume 10.3, Immature Granulocyte % (Auto) 1, Neutrophils (%) (Auto) 77, Lymphocytes (%) (Auto) 14, Monocytes (%) (Auto) 8, Eosinophils (%) (Auto) 0, Basophils (%) (Auto) 1, Neutrophils # (Auto) 8.1, Lymphocytes # (Auto) 1.5, Monocytes # (Auto) 0.8, Eosinophils # (Auto) 0.0, Basophils # (Auto) 0.1, Immature Granulocyte # (Auto) 0.1, Sodium Level 137, Potassium Level 4.0, Chloride Level 106, Carbon Dioxide Level 25, Anion Gap 6, Blood Urea Nitrogen 25, Creatinine 1.28, Estimat Glomerular Filtration Rate 55, BUN/Creatinine Ratio 20, Glucose Level 105, Calcium Level 8.7, Corrected Calcium 9.0, Magnesium Level 2.2, Total Bilirubin 0.4, Aspartate Amino Transf (AST/SGOT) 39, Alanine Aminotransferase (ALT/SGPT) 43, Alkaline Phosphatase 73, Troponin I 1.836, Total Protein 6.1, Albumin 3.6, Phosphorus Level 3.3 08/07/23 03:37: White Blood Count 11.2, Red Blood Count 3.17, Hemoglobin 8.8, Hematocrit 29, Mean Corpuscular Volume 90, Mean Corpuscular Hemoglobin 28, Mean Corpuscular Hemoglobin Concent 31, Red Cell Distribution Width 16.3, Platelet Count 289, Mean Platelet Volume 10.6, Immature Granulocyte % (Auto) 1, Neutrophils (%) (Auto) 79, Lymphocytes (%) (Auto) 11, Monocytes (%) (Auto) 8, Eosinophils (%) (Auto) 0, Basophils (%) (Auto) 0, Neutrophils # (Auto) 8.9, Lymphocytes # (Auto) 1.3, Monocytes # (Auto) 0.9, Eosinophils # (Auto) 0.0, Basophils # (Auto) 0.0, Immature Granulocyte # (Auto) 0.1, Sodium Level 139, Potassium Level 4.4, Chloride Level 109, Carbon Dioxide Level 22, Anion Gap 8, Blood Urea Nitrogen 23, Creatinine 1.27, Estimat Glomerular Filtration Rate 55, BUN/Creatinine Ratio 18, Glucose Level 121, Calcium Level 8.7, Corrected Calcium 9.2, Magnesium Level 2.0, Total Bilirubin 0.4, Aspartate Amino Transf (AST/SGOT) 28, Alanine Aminotransferase (ALT/SGPT) 37, Alkaline Phosphatase 72, Total Protein 5.8, Albumin 3.4, Phosphorus Level 3.4 08/08/23 05:08: White Blood Count 10.6, Red Blood Count 3.23, Hemoglobin 8.9, Hematocrit 29, Mean Corpuscular Volume 90, Mean Corpuscular Hemoglobin 28, Mean Corpuscular Hemoglobin Concent 31, Red Cell Distribution Width 16.2, Platelet Count 309, Mean Platelet Volume 10.3, Immature Granulocyte % (Auto) 1, Neutrophils (%) (Auto) 76, Lymphocytes (%) (Auto) 13, Monocytes (%) (Auto) 9, Eosinophils (%) (Auto) 1, Basophils (%) (Auto) 0, Neutrophils # (Auto) 8.1, Lymphocytes # (Auto) 1.4, Monocytes # (Auto) 0.9, Eosinophils # (Auto) 0.1, Basophils # (Auto) 0.0, Immature Granulocyte # (Auto) 0.1, Sodium Level 141, Potassium Level 3.9, Chloride Level 108, Carbon Dioxide Level 22, Anion Gap 11, Blood Urea Nitrogen 21, Creatinine 1.27, Estimat Glomerular Filtration Rate 55, BUN/Creatinine Ratio 17, Glucose Level 107, Calcium Level 8.7, Corrected Calcium 9.1, Magnesium Level 2.1, Total Bilirubin 0.4, Aspartate Amino Transf (AST/SGOT) 21, Alanine Aminotransferase (ALT/SGPT) 30, Alkaline Phosphatase 76, Total Protein 5.8, Albumin 3.5 Discharge Home Medications: Active Scripts Active Metoprolol Succinate 50 Mg Tab.er.24h 50 Mg PO BID Reported Tylenol Extra Strength (Acetaminophen) 500 Mg Tablet 500-1,000 Mg PO Q8H PRN Aspirin 81 Mg Tab.chew 81 Mg PO HS Brilinta (Ticagrelor) 90 Mg Tablet 90 Mg PO BID Amlodipine Besylate 5 Mg Tablet 5 Mg PO DAILY Atorvastatin Calcium 40 Mg Tablet 40 Mg PO DAILY Neurontin (Gabapentin) 300 Mg Capsule 300 Mg PO BID Dilt-Xr (Diltiazem HCl) 180 Mg Cap.er.deg 360 Mg PO DAILY TAKES 2 (180MG) CAPS Pantoprazole Sodium 40 Mg Tablet.dr 40 Mg PO DAILY LAST FILLED 04-25-2023 #30/30 DAY SUPPLY Potassium Chloride 10 Meq Capsule.er 10 Meq PO HS Eliquis (Apixaban) 5 Mg Tablet 5 Mg PO BID LAST FILLED 10-31-2022 #180/90 DAY SUPPLY Furosemide 40 Mg Tablet 40 Mg PO DAILY Instructions to patient/family Please see electronic discharge instructions given to patient. Clinical Quality Measures AMI/AHF: ASA po Prior to arrival: KAREN Davenport DO Aug 08, 2023 08:54
[2023-08-08] MEDS ORDERED: dilTIAZem ER 180 MG CAPSULE PO SCH (09:00)
[2023-08-08 11:48] VITALS: BP 125/65
[2023-08-08 13:33] VITALS: BP 125/65
--- NOTE | 2023-08-11 10:02 | Conscious Sedation/ASA ---
Moderate Sedation PreProcedure ASA Score Airway Lungs Heart ASA score ASA 1: a normal healthy patient ASA 2: a patient with a mild systemic disease (mid diabetes, controlled hypertension, obesity ASA 3: a patient with a severe systemic disease that limits activity (angina, COPD, prior Myocardial infarction) ASA 4: a patient with an incapacitating disease that is a constant threat to life (CHF, renal failure) ASA 5: a moribund patient not expected to survive 24 hrs. (ruptured aneurysm) ASA 6: a declared brain- patient whose organs are being harvested. For emergent operations, add the letter E after the classification Sedation Plan The patient is an appropriate candidate to undergo the planned procedure, sedation, and anesthesia. The patient immediately re-assessed prior to indication. DARRICK,SepAug 11, 2023 10:02
== END 2023-08-08 13:30 | disposition home or self-care (01) | DRG 322 ==
LOC: EDUNIT# 03:04 → ER 03:06 → ICU 14:35 → 4TH 08-07 19:48
PROVIDERS: ADMIT Internal Medicine; ATTEND Internal Medicine
PROC: 027034Z Dilation of Coronary Artery, One Artery with Drug-eluting Intraluminal Device, Percutaneous Approach (ICD-10-PCS; principal; 2023-08-06)
PROC: B2111ZZ Fluoroscopy of Multiple Coronary Arteries using Low Osmolar Contrast (ICD-10-PCS; 2023-08-06)
DX: I21.4 Non-ST elevation (NSTEMI) myocardial infarction (principal); I13.0 Hypertensive heart and chronic kidney disease with heart failure and stage 1 through stage 4 chronic kidney disease, or unspecified chronic kidney disease; I48.20 Chronic atrial fibrillation, unspecified; I48.92 Unspecified atrial flutter; N17.9 Acute kidney failure, unspecified; N18.9 Chronic kidney disease, unspecified; I50.9 Heart failure, unspecified; I25.110 Atherosclerotic heart disease of native coronary artery with unstable angina pectoris; E78.00 Pure hypercholesterolemia, unspecified; K21.9 Gastro-esophageal reflux disease without esophagitis; Z79.01 Long term (current) use of anticoagulants; Z95.5 Presence of coronary angioplasty implant and graft; Z97.4 Presence of external hearing-aid; Z79.899 Other long term (current) drug therapy; Z79.82 Long term (current) use of aspirin
CPT/HCPCS: 36415; 71045; 80053; 83735; 84100; 84484; 85025; 85610; 85730; 93005; 93041; 93306; 93454; 94760; 96365; 96366; 96375